=== PATIENT | male | born 1935 | race African-American/Black ===

== ENCOUNTER 2016-05-22 18:46 | Inpatient (IN) | payer MEDICARE ==
[~2016-05-22] VITALS: Ht 188 cm; Wt 138.3 kg
[~2016-05-22 18:46] MED LIST: ALLO100T PO; AMLO5TAB96 PO; ATOR20TA42 PO; BACT800T5 PO; COUM3TAB PO; COUM6TAB PO; LASI80TA PO; LOSA25TA31 PO; METO100T9 PO; POTA1TAB4 PO; TAMS0.4C67 PO; VITA-13 PO
[2016-05-22 18:50] VITALS: BP 183/87; PULSE 92; RESP 28; TEMP 97.8; O2SAT 95
[2016-05-23] VITALS (8 sets, daily range): BP systolic 110–170; BP diastolic 58–74; PULSE 67–82; RESP 18–28; TEMP 97–97.7; O2SAT 92–98
[2016-05-23] MEDS ORDERED: FUROSEMIDE 40 MG/4 ML VIAL IV PUSH ONE ×2 (00:30→13:00)
--- NOTE | 2016-05-23 00:39 | RADRPT ---
EXAM DATE/TIME: 05/23/2016 00:27 [place] COMPARISON: CHEST SINGLE AP, December 27, 2013, 7:12. INDICATIONS : Shortness of breath. MEDICAL HISTORY : Hypertension. CHF, A-Fib SURGICAL HISTORY : CABG. ENCOUNTER: Initial ACUITY: 1 day PAIN SCORE: 0/10 LOCATION: Bilateral chest FINDINGS: 2 AP semierect views of the chest were obtained and demonstrate the patient is status post median kolton rnotomy. The heart size remains mildly enlarged with no confluent infiltrates or effusions. There is no definite perihilar edema. The soft tissues and bony thorax are stable and unremarkable in appearan ce. There are overlying electrocardiogram leads. CONCLUSION: 1. Cardiomegaly with no evidence of pulmonary edema. 2. That is post median sternotomy. Shawn Martinez MD on May 23, 2016 at 0:37 Board Certified Radiologist. This report was verified electronically.
[2016-05-23 00:55] LABS: AUTOMATED NEUTROPHIL # 5.2 TH/MM3 (1.8-7.7); BASOPHIL % 0.7 % (0.0-2.0); EOSINOPHIL # 0.2 TH/MM3 (0-0.4); EOSINOPHIL % 2.7 % (0.0-4.0); HEMATOCRIT 33.8 % (39.0-51.0); HEMO FLAGS DIFF FINAL; LYMPHOCYTE # 1.1 TH/MM3 (1.0-4.8); MEAN CELL VOLUME 89.7 FL (80.0-100.0); MEAN CORPUSCULAR HEMOGLOBIN 29.4 PG (27.0-34.0); MEAN CORPUSCULAR HGB CONC 32.8 % (32.0-36.0); MONO % 7.1 % (0.0-8.0); NEUT % 73.5 % (16.0-70.0); PLATELET COUNT 262 TH/MM3 (150-450); RED BLOOD COUNT 3.77 MIL/MM3 (4.50-5.90); RED CELL DISTRIBUTION WIDTH 16.5 % (11.6-17.2)
[2016-05-23 01:11] LABS: APTT (PATIENT) 33.8 SEC (24.3-30.1); PROTHROMBIN TIME - PATIENT 22.4 SEC (9.8-11.6)
[2016-05-23 02:55] LABS: BICARBONATE 31.8 MEQ/L (21.0-32.0); POTASSIUM 3.6 MEQ/L (3.5-5.1)
--- NOTE | 2016-05-23 03:21 | PD ---
HPI Chief Complaint: Respiratory Symptoms Time Seen by Provider: 23:52 Travel History International Travel<30 days: No Contact w/Intl Traveler<30days: No Traveled to known affect area: No History of Present Illness HPI 80-year-old male arrives to the ER dyspnea on exertion and orthopnea couple of bilateral lower extremity pitting edema worsening for the past several days. He can walk no further than 15 steps without becoming severely dyspneic. His Lasix dose has been doubled for the past 2 weeks. It has not helped. Urination has been somewhat variable. He reports no chest pain. Market scrotal swelling is reported and moderately uncomfortable. No fever. PFSH Past Medical History Hx Anticoagulant Therapy: Yes Anemia: Yes Arthritis: Yes Asthma: No Atrial Fibrillation: Yes Blood Disorders: No Anxiety: No Depression: No Heart Rhythm Problems: No Cancer: No Cardiac Catheterization: Yes Cardiovascular Problems: Yes ([place] X3 CABGX3) High Cholesterol: Yes Chemotherapy: No Chest Pain: No Congestive Heart Failure: Yes (04/2012) COPD: No Cerebrovascular Accident: Yes Coronary Artery Disease: Yes Diabetes: No Diminished Hearing: No Deep Vein Thrombosis: Yes (BOTH LEGS?) Endocrine: No GERD: Yes Glaucoma: No Gout: Yes Genitourinary: Yes (BPH) Headaches: No Hepatitis: No Hypertension: Yes Immune Disorder: No Kidney Stones: No Musculoskeletal: Yes (OSTEOPOROSIS) Neurologic: Yes Psychiatric: No Reproductive: No Respiratory: Yes Migraines: No Myocardial Infarction: Yes Pneumonia: Yes (CHILDHOOD) Radiation Therapy: No Renal Failure: Yes (CRF) Seizures: No Sleep Apnea: Yes (DOESN'T USE CPAP) Thyroid Disease: No Past Surgical History Abdominal Surgery: Yes (Umbilical hernia repair) AICD: No Arteriovenous Shunt: No Cardiac Surgery: Yes (04/14/07 L CAROTID ENDARDECTOMY, CABG 04/2012) Coronary Artery Bypass Graft: Yes (2011) Ear Surgery: No Endocrine Surgery: No Eye Surgery: No Genitourinary Surgery: Yes (VASECTOMY) Gynecologic Surgery: No Insulin Pump: No Joint Replacement: No Oral Surgery: No Pacemaker: No Thoracic Surgery: No Other Surgery: Yes (UMBILICAL HERNIA 2002) Social History Alcohol Use: No Tobacco Use: No (QUIT) Substance Use: No Allergies-Medications (Allergen,Severity, Reaction): Coded Allergies: Penicillin (Verified Allergy, Severe, ANAPHYLAXIS, 05/22/16) Vasotec (Verified Allergy, Severe, FACIAL EDEMA, 05/22/16) Zithromax (Verified Allergy, Severe, UNKNOWN, 05/22/16) Reported Meds & Prescriptions Reported Meds & Active Scripts Active Bactrim DS (Sulfamethoxazole-Trimethoprim DS) 1 Tab Tab 1 Tab PO BID Reported Coumadin 3 mg (Warfarin Sodium) Warfarin Sodium 3 mg Tab 3 Mg PO DIRECTED Coumadin 6 mg (Warfarin Sodium) Warfarin Sodium 6 mg Tab 6 Mg PO DIRECTED Vitamin D3 (Cholecalciferol) 1,000 Unit Chw 1,000 Unit PO DAILY Metoprolol Succinate ER 100 mg (Metoprolol Succinate) 100 Mg Tab 100 Mg PO DAILY K-Tab (Potassium Chloride) 20 Meq Tab 10 Meq PO DAILY Cozaar (Losartan Potassium) 25 Mg Tab 50 Mg PO HS Lipitor (Atorvastatin Calcium) 20 Mg Tab 40 Mg PO HS Furosemide 80 Mg Tab 40 Mg PO DAILY Flomax (Tamsulosin HCl) 0.4 Mg Cap 0.4 Mg PO HS Norvasc (Amlodipine Besylate) 5 Mg Tab 5 Mg PO DAILY HOLD FOR SBP < 120 Allopurinol 100 Mg Tab 100 Mg PO DAILY Review of Systems Except as stated in HPI: all other systems reviewed are Neg Physical Exam Narrative GENERAL: 80-year-old male pleasant SKIN: Warm and dry. HEAD: Atraumatic. Normocephalic. EYES: Pupils equal and round. No scleral icterus. No injection or drainage. ENT: No nasal bleeding or discharge. Mucous membranes pink and moist. NECK: Trachea midline. No JVD. CARDIOVASCULAR: Regular rate and rhythm. No murmur appreciated. RESPIRATORY: No accessory muscle use. Clear to auscultation. Breath sounds equal bilaterally. GASTROINTESTINAL: Abdomen soft, non-tender, nondistended. Hepatic and splenic margins not palpable. MUSCULOSKELETAL: No obvious deformities. No clubbing. No cyanosis. No edema. Approximate 5 cm soft tissue lump in the region of the lumbar soft tissues. NEUROLOGICAL: Awake and alert. No obvious cranial nerve deficits. Motor grossly within normal limits. Normal speech. PSYCHIATRIC: Appropriate mood and affect; insight and judgment normal. Data Data Last Documented VS Vital Signs Date Time Temp Pulse Resp B/P Pulse Ox O2 Delivery O2 Flow Rate FiO2 05/23/16 00:06 98 Nasal Cannula 2 05/23/16 00:06 28 05/23/16 00:03 69 05/23/16 00:03 170/74 05/22/16 18:50 97.8 Orders Electrocardiogram (05/23/16 00:02) Basic Metabolic Panel (Bmp) (05/23/16 00:02) Ckmb (Isoenzyme) Profile (05/23/16 00:02) Complete Blood Count With Diff (05/23/16 00:02) Magnesium (Mg) (05/23/16 00:02) Prothrombin Time / Inr (Pt) (05/23/16 00:02) Act Partial Throm Time (Ptt) (05/23/16 00:02) Troponin I (05/23/16 00:02) Chest, Single Ap (05/23/16 00:02) Ecg Monitoring (05/23/16 00:02) Bilateral Bp Monitoring (05/23/16 00:02) Iv Access Insert/Monitor (05/23/16 00:02) Oximetry (05/23/16 00:02) Oxygen Administration (05/23/16 00:02) B-Type Natriuretic Peptide (05/23/16 00:11) Furosemide Inj (Lasix Inj) (05/23/16 00:30) Vital Signs (Adult) Q4H (05/23/16 03:20) Diet Heart Healthy (05/23/16 Breakfast) Activity Bed Rest (05/23/16 03:20) Resp Oxygen Sukhdev C Titrat 1-4 L (05/23/16 ) Sodium Chloride 0.9% Flush (Ns Flush) (05/23/16 09:00) Sodium Chloride 0.9% Flush (Ns Flush) (05/23/16 03:30) Labs Laboratory Tests Test 05/23/16 05/23/16 00:00 02:32 White Blood Count 7.0 TH/MM3 Red Blood Count 3.77 MIL/MM3 Hemoglobin 11.1 GM/DL Hematocrit 33.8 % Mean Corpuscular Volume 89.7 FL Mean Corpuscular Hemoglobin 29.4 PG Mean Corpuscular Hemoglobin 32.8 % Concent Red Cell Distribution Width 16.5 % Platelet Count 262 TH/MM3 Mean Platelet Volume 8.5 FL Neutrophils (%) (Auto) 73.5 % Lymphocytes (%) (Auto) 16.0 % Monocytes (%) (Auto) 7.1 % Eosinophils (%) (Auto) 2.7 % Basophils (%) (Auto) 0.7 % Neutrophils # (Auto) 5.2 TH/MM3 Lymphocytes # (Auto) 1.1 TH/MM3 Monocytes # (Auto) 0.5 TH/MM3 Eosinophils # (Auto) 0.2 TH/MM3 Basophils # (Auto) 0.0 TH/MM3 CBC Comment DIFF FINAL Differential Comment Prothrombin Time 22.4 SEC Prothromb Time International 2.0 RATIO Ratio Activated Partial 33.8 SEC Thromboplast Time B-Type Natriuretic Peptide 994 PG/ML Sodium Level 139 MEQ/L Potassium Level 3.6 MEQ/L Chloride Level 99 MEQ/L Carbon Dioxide Level 31.8 MEQ/L Anion Gap 8 MEQ/L Blood Urea Nitrogen 18 MG/DL Creatinine 1.54 MG/DL Estimat Glomerular Filtration 53 ML/MIN Rate Random Glucose 101 MG/DL Calcium Level 8.8 MG/DL Magnesium Level 2.0 MG/DL Total Creatine Kinase 39 U/L Troponin I 0.25 NG/ML MDM Medical Decision Making Medical Screen Exam Complete: Yes Emergency Medical Condition: Yes Medical Record Reviewed: Yes Differential Diagnosis CHF exacerbation, pneumonia, renal failure, ascites, lymphedema Narrative Course CBC & BMP Diagram 05/23/16 00:00 05/23/16 02:32 Last Impressions Chest X-Ray 05/23/16 0002 Signed Impressions: Service Date/Time: April 00:27 - CONCLUSION: 1. Cardiomegaly with no evidence of pulmonary edema. 2. That is post median sternotomy. Shawn Martinez MD The troponin is 0.25 The BNP is 994 EKG reveals atrial fibrillation with a rate of 80 The patient will be admitted for oxygen and for diuresis. Lasix given in ER. Discussed with Dr. Rivas. Diagnosis Primary Impression: CHF exacerbation Qualified Code: I50.9 - Acute on chronic congestive heart failure, unspecified congestive heart failure type Admitting Information Admitting Physician Requests: Admit Rudi Stewart MD May 23, 2016 03:21
[2016-05-23] MEDS ORDERED: SODIUM CHLORIDE 0.9% FLUSH 5 ML FLUSH IVF PRN (03:30)
[2016-05-23] MEDS ORDERED: oxyCODONE/ACETAMINOPHEN 7.5 MG/325 MG TAB PO ONE (06:00)
[2016-05-23] MEDS: SODIUM CHLORIDE 0.9% FLUSH 5 ML FLUSH IVF SCH ×2 (09:00→21:48)
[2016-05-23] MEDS ORDERED: ALLO100T PO (09:25)
[2016-05-23] MEDS ORDERED: AMLO5TAB2 PO (09:26)
[2016-05-23] MEDS ORDERED: ATOR20TA15 PO (09:27)
[2016-05-23] MEDS ORDERED: FURO40TA PO (09:28)
[2016-05-23] MEDS ORDERED: LOSA50TA PO (09:29)
[2016-05-23] MEDS ORDERED: METO100T9 PO (09:31)
[2016-05-23] MEDS ORDERED: TAMS0.4C4 PO (09:32)
[2016-05-23] MEDS ORDERED: SENO8.6T5 PO (09:52)
--- NOTE | 2016-05-23 11:59 | EKG ---
Date Performed: 05/22/2016 Time Performed: 23:55:40 PTAGE: 80 years EKG: ATRIAL FIBRILLATION LOW QRS VOLTAGE IN PRECORDIAL LEADS ST DEVIATION AND MODERATE T-WAVE AB NORMALITY, CONSIDER LATERAL ISCHEMIA ABNORMAL ECG Since PREVIOUS TRACING , no significant change noted PREVIOUS TRACIN12/27/2013 07.00 DOCTOR: Eamon Posadas Interpretating Date/Time 05/23/2016 11:57:10
[2016-05-23] MEDS: oxyCODONE/ACETAMINOPHEN 7.5 MG/325 MG TAB PO PRN ×3 (12:48→21:47)
--- NOTE | 2016-05-23 12:55 | HHI.HP ---
HPI Service [facility] Hospitalists Primary Care Physician Vipul Eid MD Admission Diagnosis CHF Exacerbation Chief Complaint: sob. leg edema Travel History International Travel<30 Days: No Contact w/Intl Traveler <30 Da: No Traveled to Known Affected Are: No History of Present Illness Pt with cad, 3v cabg 2012, afib presents with sob, worsening leg edema, breakdown of lower ext skin and severe scrotal edema. Pt says he was going to lymphedema clinic for wraps and therapy in past. His pcp doubled his lasix last week w/out improvement. He is noncomplaint with cpap. He presents with acute systolic chf exacerbation. admitted for further care. Review of Systems Other worsening lower ext edema/scrotal edema/sob Past Family Social History Past Medical History cad. 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 dvt Reported Medications Senokot (Sennosides) 8.6 Mg Tab 8.6 Mg PO HS Tamsulosin (Tamsulosin HCl) 0.4 Mg Cap 0.4 Mg PO HS Metoprolol Succinate ER 24 HR (Metoprolol Succinate) 100 Mg Tab 100 Mg PO DAILY Losartan (Losartan Potassium) 50 Mg Tab 50 Mg PO DAILY Furosemide 40 Mg Tab 40 Mg PO DAILY Atorvastatin (Atorvastatin Calcium) 20 Mg Tab 20 Mg PO HS Amlodipine (Amlodipine Besylate) 5 Mg Tab 5 Mg PO DAILY Allopurinol 100 Mg Tab 100 Mg PO DAILY coumadin 3mg po daily Allergies: Coded Allergies: Penicillin (Verified Allergy, Severe, ANAPHYLAXIS, 05/22/16) Vasotec (Verified Allergy, Severe, FACIAL EDEMA, 05/22/16) Zithromax (Verified Allergy, Severe, UNKNOWN, 05/22/16) Family History nc Social History no etoh/tob Physical Exam Vital Signs heart reg lung diminished bases abd s/nt ext anasarca with denuded skin bilateral lower ext's below the knee. multiple superficial black nodular eschar. no evidence for cellulitis. Vital Signs Date Time Temp Pulse Resp B/P Pulse Ox O2 Delivery O2 Flow Rate FiO2 05/23/16 10:40 Nasal Cannula 2.00 05/23/16 05:00 82 22 154/71 97 Nasal Cannula 2 05/23/16 03:55 98 Nasal Cannula 2.00 05/23/16 00:06 98 Nasal Cannula 2 05/23/16 00:06 28 98 Nasal Cannula 2 05/23/16 00:03 69 28 95 Room Air 05/23/16 00:03 81 28 170/74 98 Nasal Cannula 2 05/22/16 18:50 97.8 92 28 183/87 95 Room Air Laboratory Laboratory Tests Test 05/23/16 05/23/16 00:00 02:32 White Blood Count 7.0 Red Blood Count 3.77 Hemoglobin 11.1 Hematocrit 33.8 Mean Corpuscular Volume 89.7 Mean Corpuscular Hemoglobin 29.4 Mean Corpuscular Hemoglobin 32.8 Concent Red Cell Distribution Width 16.5 Platelet Count 262 Mean Platelet Volume 8.5 Neutrophils (%) (Auto) 73.5 Lymphocytes (%) (Auto) 16.0 Monocytes (%) (Auto) 7.1 Eosinophils (%) (Auto) 2.7 Basophils (%) (Auto) 0.7 Neutrophils # (Auto) 5.2 Lymphocytes # (Auto) 1.1 Monocytes # (Auto) 0.5 Eosinophils # (Auto) 0.2 Basophils # (Auto) 0.0 CBC Comment DIFF FINAL Differential Comment Prothrombin Time 22.4 Prothromb Time International 2.0 Ratio Activated Partial 33.8 Thromboplast Time B-Type Natriuretic Peptide 994 Sodium Level 139 Potassium Level 3.6 Chloride Level 99 Carbon Dioxide Level 31.8 Anion Gap 8 Blood Urea Nitrogen 18 Creatinine 1.54 Estimat Glomerular Filtration 53 Rate Random Glucose 101 Calcium Level 8.8 Magnesium Level 2.0 Total Creatine Kinase 39 Troponin I 0.25 Result Diagram: 05/23/16 0000 05/23/16 0232 Assessment and Plan Problem List: (1) CHF exacerbation Status: Acute Plan: Pt with cad, 3v cabg 2011, afib presents with sob, worsening leg edema, breakdown of lower ext skin and severe scrotal edema. Pt says he was going to lymphedema clinic for wraps and therapy in past. His pcp doubled his lasix last week w/out improvement. He is noncomplaint with cpap. He presents with acute systolic chf exacerbation. echo iv lasix and follow cr/gfr elevate legs. and scrotum wrap legs wound care pt (2) CAD (coronary artery disease) Status: Chronic Plan: s/p cabg x 3 2011. stable (3) Atrial fibrillation Status: Chronic Plan: pt is currently anticoagulated. (4) HTN (hypertension) Status: Chronic Plan: cont home meds (5) CKD (chronic kidney disease) stage 3, GFR 30-59 ml/min Status: Chronic Physician Certification 2 Midnight Certification Type: Admission for Inpatient Services Order for Inpatient Services 3The services are ordered in accordance with Medicare regulations or non- Medicare payer requirements, as applicable. In the case of services not specified as inpatient-only, they are appropriately provided as inpatient services in accordance with the 2-midnight benchmark. Estimated LOS (days): 3 3 days is the estimated time the patient will need to remain in the hospital, assuming treatment plan goals are met and no additional complications. Post-Hospital Plan: Home Problem Qualifiers (1) CHF exacerbation: Qualified Code: I50.9 - Acute on chronic congestive heart failure, unspecified congestive heart failure type Alfonso Asif MD May 23, 2016 12:55
[2016-05-23] MEDS: amLODIPine BESYLATE 5 MG TAB PO SCH (13:04)
[2016-05-23] MEDS: LOSARTAN 50 MG TAB PO SCH (13:05)
[2016-05-23] MEDS: WARFARIN SOD 3 MG TAB PO SCH (15:27)
--- NOTE | 2016-05-23 21:00 | EC ---
Study Study Date:05/23/2016 STUDY CONCLUSIONS SUMMARY - Left ventricle: The cavity size was normal. Wall thickness was normal. Systolic function was mildly reduced. The estimated ejection fraction was in the range of 45% to 50%. Wall motion was normal; there were no regional wall motion abnormalities. - Aortic valve: Valve area: 2.36cm^2 (Vmax). - Tricuspid valve: Mild-moderate regurgitation. - Pulmonary arteries: PA peak pressure: 34mm Hg (S). If LV function is below 40, please consider prescribing an ACEI or ARB or document rationale for non-use. PROCEDURE DATA STUDY STATUS: Elective. Procedure: Transthoracic echocardiography. Image quality was poor. Scanning was performed from the parasternal, apical, and subcostal acoustic windows. Study completion: The patient tolerated the procedure well. Transthoracic echocardiography. M-mode, complete 2D, complete spectral Doppler, and color Doppler. Height: Height: 74in. Weight: Weight: 281.4lb. Body mass index: BMI: 36.2kg/m^2. Body surface area: BSA: 2.51m^2. Patient status: Inpatient. CARDIAC ANATOMY LEFT VENTRICLE: The cavity size was normal. Wall thickness was normal. Systolic function was mildly reduced. The estimated ejection fraction was in the range of 45% to 50%. Wall motion was normal; there were no regional wall motion abnormalities. AORTIC VALVE: Trileaflet; normal thickness leaflets. Doppler: Transvalvular velocity was within the normal range. There was no stenosis. No regurgitation. Valve area: 2.36cm^2 (Vmax). Indexed valve area: 0.94cm^2/m^2 (Vmax). AORTA: Aortic root: The aortic root was normal in size. MITRAL VALVE: Structurally normal valve. Doppler: Transvalvular velocity was within the normal range. There was no evidence for stenosis. No regurgitation. Peak gradient: 7mm Hg (D). LEFT ATRIUM: The atrium was normal in size. RIGHT VENTRICLE: The cavity size was normal. Wall thickness was normal. PULMONIC VALVE: Doppler: Transvalvular velocity was within the normal range. There was no evidence for stenosis. No regurgitation. TRICUSPID VALVE: Structurally normal valve. Doppler: Transvalvular velocity was within the normal range. Mild-moderate regurgitation. PULMONARY ARTERY: The main pulmonary artery was normal-sized. Systolic pressure was within the normal range. RIGHT ATRIUM: The atrium was normal in size. PERICARDIUM: There was no pericardial effusion. SYSTEMIC VEINS: Inferior vena cava: The vessel was normal in size. Patient weight: 281.4lb _Ejection fraction:_ 65-75% _Fractional shortening:_ 32% up to 5Kg 5-11.5Kg 11.6-22.9Kg 23-45Kg 45-57Kg Aortic Root 7-13 <17 13-22 17-27 17-27 LA diam 6-13 <23 24-38 33-47 37-40 RVID 10-17 7-15 7-15 7-18 8-17 LVIDd 12-22 <32 24-38 33-47 37-40 LVPW 2-4 3-6 5-7 6-8 7-8 IVS 2-4 3-6 5-7 6-8 7-8 BASIC MEASUREMENTS ADULT NORMAL Left ventricle LV internal dimension, ED, chordal *39.1 mm 43-52 level, PLAX LV internal dimension, ES, chordal 32 mm 23-38 level, PLAX Fractional shortening, chordal level, *18 % >29 PLAX LV posterior wall thickness, ED 11.3 mm IVS/LVPW ratio, ED 1.01 <1.3 Ventricular septum Septal thickness, ED 11.4 mm Aortic valve Leaflet separation 19 mm 15-26 BASIC MEASUREMENTS ADULT NORMAL Aortic valve Leaflet separation 19 mm 15-26 Aorta Root diameter, ED 30 mm 20-37 Left atrium Anterior-posterior dimension, ES *53 mm 19-40 Anterior-posterior dimension index, ES 2.11 cm/m^2 <2.2 LA/aortic root ratio 1.77 DOPPLER MEASUREMENTS ADULT NORMAL Main pulmonary artery Pressure, S *34 mm Hg =30 Aortic valve Peak velocity, S 121 cm/s Valve area, Vmax 2.36 cm^2 Valve area index, Vmax 0.94 cm^2/m^2 Mitral valve Peak E-wave velocity 131 cm/s Deceleration time 187 ms 150-230 Peak gradient, D 7 mm Hg Maximal regurgitant velocity 243 cm/s Tricuspid valve Regurgitant peak velocity 267 cm/s Peak RV-RA gradient, S 29 mm Hg Maximal regurgitant velocity 267 cm/s Systemic veins Estimated CVP 10 mm Hg Right ventricle RV pressure, S *39 mm Hg <30 Pulmonic valve Peak velocity, S 117 cm/s LEGEND: Mean values are shown as u=mean value. Asterisk (*) daniels values outside specified normal range. Prepared and signed by Jorden So [id number]
[2016-05-23] MEDS: SENNOSIDES 8.6 MG TAB PO SCH (21:44)
[2016-05-23] MEDS: ATORVASTATIN 20 MG TAB PO SCH (21:45)
[2016-05-23] MEDS: TAMSULOSIN HCL 0.4 MG CAP PO SCH (21:46)
[2016-05-24] VITALS (8 sets, daily range): BP systolic 98–137; BP diastolic 48–75; PULSE 66–84; RESP 17–18; TEMP 96.2–98; O2SAT 92–96
[2016-05-24 05:41] LABS: INTERNATIONAL NORMALIZED RATIO 2.4 RATIO; PROTHROMBIN TIME - PATIENT 27.5 SEC (9.8-11.6)
[2016-05-24 05:59] LABS: BICARBONATE 32.9 MEQ/L (21.0-32.0); POTASSIUM 3.5 MEQ/L (3.5-5.1)
[2016-05-24] MEDS ORDERED: amLODIPine BESYLATE 5 MG TAB PO SCH (09:00)
[2016-05-24] MEDS ORDERED: LOSARTAN 50 MG TAB PO SCH (09:00)
[2016-05-24] MEDS: ALLOPURINOL 100 MG TAB PO SCH (09:17)
[2016-05-24] MEDS: METOPROLOL SUCCINATE 50 MG EXTENDED RELEASE TAB PO SCH (09:17)
[2016-05-24] MEDS: LOSARTAN 50 MG TAB PO SCH (09:17)
[2016-05-24] MEDS: amLODIPine BESYLATE 5 MG TAB PO SCH (09:17)
[2016-05-24] MEDS: SODIUM CHLORIDE 0.9% FLUSH 5 ML FLUSH IVF SCH ×2 (09:19→21:00)
[2016-05-24] MEDS ORDERED: FUROSEMIDE 20 MG/2 ML VIAL IV PUSH ONE (10:15)
--- NOTE | 2016-05-24 12:19 | HHI.PR ---
Subjective Remarks still swollen. c/o some sob/wheezing. Objective Vitals heent neg heart reg lung wheezing upper airways abd s/nt ext anasarca/scrotal edema with denuded skin and ruptured lower ext blisters. black eschars Vital Signs Date Time Temp Pulse Resp B/P Pulse Ox O2 Delivery O2 Flow Rate FiO2 05/24/16 12:00 Room Air 05/24/16 12:00 97.0 81 18 137/70 92 05/24/16 09:47 94 05/24/16 08:00 97.2 84 18 123/54 93 05/24/16 04:15 97.5 78 18 114/75 92 05/24/16 00:20 96.2 82 17 104/57 93 05/23/16 21:55 2.00 05/23/16 20:55 97.7 81 18 110/66 93 05/23/16 18:30 96 21 05/23/16 15:33 96 Nasal Cannula 2.00 05/23/16 15:28 97.2 67 18 110/58 96 05/23/16 14:02 Nasal Cannula 2.00 05/23/16 05/23/16 05/24/16 15:00 23:00 07:00 Intake Total 720 ml 480 ml 240 ml Balance 720 ml 480 ml 240 ml Intake Oral 720 ml 480 ml 240 ml # Voids 3 0 0 # Bowel Movements 0 0 0 Result Diagram: 05/23/16 0000 05/24/16 0446 A/P Problem List: (1) CHF exacerbation Status: Acute Plan: Pt with cad, 3v cabg 2011, afib presents with sob, worsening leg edema, breakdown of lower ext skin and severe scrotal edema. Pt says he was going to lymphedema clinic for wraps and therapy in past. His pcp doubled his lasix last week w/out improvement. He is noncomplaint with cpap. He presents with acute systolic chf exacerbation. echo noted iv lasix and add iv albumen elevate legs. and scrotum wrap legs wound care pt (2) Atrial fibrillation Status: Chronic Plan: pt is currently anticoagulated. (3) CAD (coronary artery disease) Status: Chronic Plan: s/p cabg x 3 2011. stable (4) HTN (hypertension) Status: Chronic Plan: cont home meds (5) CKD (chronic kidney disease) stage 3, GFR 30-59 ml/min Status: Chronic Problem Qualifiers (1) CHF exacerbation: Qualified Code: I50.9 - Acute on chronic congestive heart failure, unspecified congestive heart failure type Alfonso Asif MD May 24, 2016 12:19
[2016-05-24] MEDS: RESP: ALBUTEROL 2.5 MG/IPRATROPIUM 0.5 MG NEB (SCH) NEB ×3 (12:36→19:26)
[2016-05-24 15:51] LABS: TOTAL BILIRUBIN ADULT 1.5 MG/DL (0.2-1.0)
[2016-05-24] MEDS ORDERED: POTASSIUM CHLORIDE 20 MEQ CONTROLLED RELEASE TAB PO ONE (16:00)
[2016-05-24] MEDS: WARFARIN SOD 3 MG TAB PO SCH (16:00)
[2016-05-24] MEDS: FUROSEMIDE 20 MG/2 ML VIAL IV PUSH SCH (16:40)
[2016-05-24] MEDS: ALBUMIN HUMAN 25% 25 GM/100 ML BAGP IV SCH (16:42)
[2016-05-24] MEDS: TAMSULOSIN HCL 0.4 MG CAP PO SCH (22:08)
[2016-05-24] MEDS: POTASSIUM CHLORIDE 20 MEQ CONTROLLED RELEASE TAB PO SCH (22:08)
[2016-05-24] MEDS: ATORVASTATIN 20 MG TAB PO SCH (22:08)
[2016-05-24] MEDS: SENNOSIDES 8.6 MG TAB PO SCH (22:08)
[2016-05-24] MEDS: oxyCODONE/ACETAMINOPHEN 7.5 MG/325 MG TAB PO PRN (22:17)
[2016-05-25] VITALS (14 sets, daily range): BP systolic 104–142; BP diastolic 50–76; PULSE 77–107; RESP 16–18; TEMP 97.1–98.2; O2SAT 93–95
[2016-05-25 00:01] LABS: BACTERIA, URINE RARE /hpf; BLOOD, URINE NEG (NEG); CALCIUM OXALATE CRYSTALS,URINE OCC /hpf; COMMENT (UR) CULTURE INDICATED; CULTURE IF INDICATED CULTURE INDICATED; GLUCOSE,URINE NEG (NEG); HYALINE CAST, URINE 20 /lpf (RARE); KETONE, URINE NEG (NEG); NITRITE,URINE NEG (NEG); PH, URINE 5.5 (5.0-8.5); SQUAMOUS EPITHELIAL CELL URINE 2 /hpf (0-5); URINE COLOR DARK-YELLOW (YELLW/STRAW)
[2016-05-25 07:03] LABS: BICARBONATE 30.1 MEQ/L (21.0-32.0); POTASSIUM 3.7 MEQ/L (3.5-5.1)
[2016-05-25 07:15] LABS: INTERNATIONAL NORMALIZED RATIO 2.3 RATIO; PROTHROMBIN TIME - PATIENT 26.7 SEC (9.8-11.6)
[2016-05-25] MEDS: RESP: ALBUTEROL 2.5 MG/IPRATROPIUM 0.5 MG NEB (SCH) NEB ×4 (07:40→20:00)
[2016-05-25] MEDS: POTASSIUM CHLORIDE 20 MEQ CONTROLLED RELEASE TAB PO SCH ×2 (09:36→20:40)
[2016-05-25] MEDS: ALLOPURINOL 100 MG TAB PO SCH (09:36)
[2016-05-25] MEDS: FUROSEMIDE 20 MG/2 ML VIAL IV PUSH SCH (09:37)
[2016-05-25] MEDS: ALBUMIN HUMAN 25% 25 GM/100 ML BAGP IV SCH ×2 (09:38→17:47)
[2016-05-25] MEDS: METOPROLOL SUCCINATE 50 MG EXTENDED RELEASE TAB PO SCH (09:40)
[2016-05-25] MEDS: amLODIPine BESYLATE 5 MG TAB PO SCH (09:40)
[2016-05-25] MEDS: LOSARTAN 50 MG TAB PO SCH (09:40)
[2016-05-25] MEDS: SODIUM CHLORIDE 0.9% FLUSH 5 ML FLUSH IVF SCH ×2 (09:41→20:40)
--- NOTE | 2016-05-25 10:41 | HHI.PR ---
Subjective Remarks breathing better. Objective Vitals heart reg lung cta abd s/nt ext lower ext anasarca with denuded skin from ruptured blistered some necrotic/eschars scrotal edema improving Vital Signs Date Time Temp Pulse Resp B/P Pulse Ox O2 Delivery O2 Flow Rate FiO2 05/25/16 08:00 97.1 83 18 106/59 94 05/25/16 07:44 Room Air 05/25/16 07:43 95 21 05/25/16 04:00 98.2 107 16 104/56 93 05/25/16 00:00 98.2 78 17 141/76 94 05/24/16 20:00 98.0 83 17 131/60 95 05/24/16 19:27 92 Nasal Cannula 05/24/16 17:17 Room Air 05/24/16 16:46 Room Air 05/24/16 16:00 97.8 66 18 98/48 96 05/24/16 12:00 Room Air 05/24/16 12:00 97.0 81 18 137/70 92 05/24/16 05/24/16 05/25/16 14:59 22:59 06:59 Intake Total 960 ml 240 ml 240 ml Output Total 200 ml 250 ml Balance 960 ml 40 ml -10 ml Intake Oral 960 ml 240 ml 240 ml Output Urine Total 200 ml 250 ml # Voids 4 # Bowel Movements 0 0 0 Result Diagram: 05/23/16 0000 05/25/16 0347 A/P Problem List: (1) CHF exacerbation Status: Acute Plan: Pt with cad, 3v cabg 2011, afib presents with sob, worsening leg edema, breakdown of lower ext skin and severe scrotal edema. Pt says he was going to lymphedema clinic for wraps and therapy in past. His pcp doubled his lasix last week w/out improvement. He is noncomplaint with cpap. He presents with acute systolic chf exacerbation. increase iv lasix and albumen discussed strict i/o and weights with RN instructed pt to restrict fluid intake elevate legs. wrapped he is noncompliant with cpap. duonebs (2) CAD (coronary artery disease) Status: Chronic Plan: s/p cabg x 3 2011. stable (3) Atrial fibrillation Status: Chronic Plan: pt is currently anticoagulated. (4) HTN (hypertension) Status: Chronic Plan: cont home meds (5) CKD (chronic kidney disease) stage 3, GFR 30-59 ml/min Status: Chronic Problem Qualifiers (1) CHF exacerbation: Qualified Code: I50.9 - Acute on chronic congestive heart failure, unspecified congestive heart failure type Alfonso Asif MD May 25, 2016 10:41
[2016-05-25] MEDS: oxyCODONE/ACETAMINOPHEN 7.5 MG/325 MG TAB PO PRN ×2 (14:15→20:49)
[2016-05-25] MEDS: WARFARIN SOD 3 MG TAB PO SCH (16:15)
[2016-05-25] MEDS: FUROSEMIDE 40 MG/4 ML VIAL IV PUSH SCH (17:47)
[2016-05-25] MEDS: TAMSULOSIN HCL 0.4 MG CAP PO SCH (20:39)
[2016-05-25] MEDS: ATORVASTATIN 20 MG TAB PO SCH (20:39)
[2016-05-25] MEDS: SENNOSIDES 8.6 MG TAB PO SCH (20:39)
[2016-05-26] VITALS (22 sets, daily range): BP systolic 106–151; BP diastolic 58–89; PULSE 64–87; RESP 18–20; TEMP 97.8–98.3; O2SAT 93–98
[2016-05-26] MEDS: oxyCODONE/ACETAMINOPHEN 7.5 MG/325 MG TAB PO PRN (01:58)
[2016-05-26 08:05] LABS: PROTHROMBIN TIME - PATIENT 22.3 SEC (9.8-11.6)
--- NOTE | 2016-05-26 08:10 | HHI.PR ---
Subjective Remarks severe heartburn. Objective Vitals heart irreg lung clear abd s/nt ext anasarca lower exts with denuded skin from ruptured blisters and old eschar Vital Signs Date Time Temp Pulse Resp B/P Pulse Ox O2 Delivery O2 Flow Rate FiO2 05/26/16 07:33 86 05/26/16 06:00 76 05/26/16 05:00 79 05/26/16 04:00 84 05/26/16 04:00 98.3 84 20 149/89 96 05/26/16 04:00 Room Air 05/26/16 03:00 86 05/26/16 02:00 79 05/26/16 01:00 82 05/26/16 00:00 80 05/26/16 00:00 Room Air 05/26/16 00:00 97.9 80 18 127/82 97 05/25/16 23:00 77 05/25/16 22:00 84 05/25/16 21:00 88 05/25/16 20:00 Room Air 05/25/16 20:00 98.2 93 18 117/50 95 05/25/16 20:00 93 05/25/16 18:00 77 05/25/16 17:00 83 05/25/16 16:00 83 05/25/16 15:00 93 Room Air 05/25/16 15:00 97.9 90 18 136/67 93 05/25/16 12:00 97.3 82 18 137/63 94 05/25/16 09:35 142/67 05/25/16 05/25/16 05/26/16 15:00 23:00 07:00 Intake Total 600 ml 960 ml 482 ml Output Total 300 ml 350 ml Balance 300 ml 960 ml 132 ml Intake Oral 600 ml 960 ml 480 ml IV Total 2 ml Output Urine Total 300 ml 350 ml # Bowel Movements 0 0 Result Diagram: 05/23/16 0000 05/25/16 0347 A/P Problem List: (1) CHF exacerbation Status: Acute Plan: Pt with cad, 3v cabg 2011, afib presents with sob, worsening leg edema, breakdown of lower ext skin and severe scrotal edema. Pt says he was going to lymphedema clinic for wraps and therapy in past. His pcp doubled his lasix last week w/out improvement. He is noncomplaint with cpap. He presents with acute systolic chf exacerbation. echo noted albumen and lasix. monitor cr elevate legs. and scrotum wrap legs wound care pt (2) Atrial fibrillation Status: Chronic Plan: pt is currently anticoagulated. (3) CAD (coronary artery disease) Status: Chronic Plan: s/p cabg x 3 2011. stable (4) HTN (hypertension) Status: Chronic Plan: cont home meds (5) CKD (chronic kidney disease) stage 3, GFR 30-59 ml/min Status: Chronic Problem Qualifiers (1) CHF exacerbation: Qualified Code: I50.9 - Acute on chronic congestive heart failure, unspecified congestive heart failure type Alfonso Asif MD May 26, 2016 08:10
[2016-05-26] MEDS ORDERED: LACTULOSE SYRUP 20 GM/30 ML CUP PO ONE (08:15)
[2016-05-26] MEDS ORDERED: ALUMINUM/MAGNESIUM/SIMETH 30 ML CUP PO ONE (08:15)
[2016-05-26] MEDS ORDERED: LACTULOSE SYRUP 20 GM/30 ML CUP PO PRN (08:15)
[2016-05-26] MEDS ORDERED: ALUMINUM/MAGNESIUM/SIMETH 30 ML CUP PO PRN (08:15)
[2016-05-26] MEDS ORDERED: PANTOPRAZOLE SODIUM 40 MG VIAL IV PUSH ONE (08:15)
[2016-05-26] MEDS: RESP: ALBUTEROL 2.5 MG/IPRATROPIUM 0.5 MG NEB (SCH) NEB ×4 (08:47→20:26)
[2016-05-26 09:20] LABS: MAGNESIUM 2.1 MG/DL (1.5-2.5); POTASSIUM 4.3 MEQ/L (3.5-5.1)
[2016-05-26] MEDS: POTASSIUM CHLORIDE 20 MEQ CONTROLLED RELEASE TAB PO SCH ×2 (09:30→20:21)
[2016-05-26] MEDS: ALLOPURINOL 100 MG TAB PO SCH (09:30)
[2016-05-26] MEDS: METOPROLOL SUCCINATE 50 MG EXTENDED RELEASE TAB PO SCH (09:30)
[2016-05-26] MEDS: amLODIPine BESYLATE 5 MG TAB PO SCH (09:30)
[2016-05-26] MEDS: ALBUMIN HUMAN 25% 25 GM/100 ML BAGP IV SCH (09:30)
[2016-05-26] MEDS: LOSARTAN 50 MG TAB PO SCH (09:31)
[2016-05-26] MEDS: SODIUM CHLORIDE 0.9% FLUSH 5 ML FLUSH IVF SCH ×2 (09:31→20:21)
[2016-05-26] MEDS: FUROSEMIDE 40 MG/4 ML VIAL IV PUSH SCH (09:31)
[2016-05-26 12:01] LABS: BLOOD GAS BASE EXCESS 3.4 mmol/L (-2-2); BLOOD GAS CARBOXYHEMOGLOBIN 2.1 % (0-4); BLOOD GAS HCO3 27 mmol/L (22-26); BLOOD GAS METHEMOGLOBIN 0.9 % (0-2); BLOOD GAS O2 HGB SATURATION 92 % (90-100); BLOOD GAS OXYGEN CONTENT 13.2 Vol % (12.0-20.0); BLOOD GAS PCO2 42 mmHg (38-42); BLOOD GAS PO2 76 mmHg (61-120); BLOOD GAS TOTAL HGB 10.1 G/DL (12.0-16.0); CRITICAL VALUE NO; TEMP CORR TO 98.6
[2016-05-26 12:02] LABS: DRAW SITE RT BRACHIAL; FIO2 21 %; NUMBER OF ARTERIAL PUNCTURES 1; STAT NO; ULNAR PULSE PRESENT
[2016-05-26] MEDS: WARFARIN SOD 3 MG TAB PO SCH (16:22)
[2016-05-26] MEDS: TAMSULOSIN HCL 0.4 MG CAP PO SCH (20:21)
[2016-05-26] MEDS: SENNOSIDES 8.6 MG TAB PO SCH (20:21)
[2016-05-26] MEDS: ATORVASTATIN 20 MG TAB PO SCH (20:22)
[2016-05-27] VITALS (26 sets, daily range): BP systolic 95–129; BP diastolic 54–75; PULSE 69–96; RESP 18–20; TEMP 98–98.6; O2SAT 92–98
[2016-05-27 08:05] LABS: INTERNATIONAL NORMALIZED RATIO 2.2 RATIO; PROTHROMBIN TIME - PATIENT 25.4 SEC (9.8-11.6)
[2016-05-27] MEDS: RESP: ALBUTEROL 2.5 MG/IPRATROPIUM 0.5 MG NEB (SCH) NEB ×4 (08:06→19:28)
[2016-05-27 08:25] LABS: MAGNESIUM 2.1 MG/DL (1.5-2.5); POTASSIUM 3.7 MEQ/L (3.5-5.1)
[2016-05-27] MEDS ORDERED: FUROSEMIDE 40 MG/4 ML VIAL IV PUSH SCH (09:00)
[2016-05-27] MEDS: ALBUMIN HUMAN 25% 25 GM/100 ML BAGP IV SCH (10:11)
[2016-05-27] MEDS: SODIUM CHLORIDE 0.9% FLUSH 5 ML FLUSH IVF SCH ×2 (10:12→21:21)
[2016-05-27] MEDS: METOPROLOL SUCCINATE 50 MG EXTENDED RELEASE TAB PO SCH (10:12)
[2016-05-27] MEDS: amLODIPine BESYLATE 5 MG TAB PO SCH (10:12)
[2016-05-27] MEDS: ALLOPURINOL 100 MG TAB PO SCH (10:12)
[2016-05-27] MEDS: LOSARTAN 50 MG TAB PO SCH (10:13)
[2016-05-27] MEDS: POTASSIUM CHLORIDE 20 MEQ CONTROLLED RELEASE TAB PO SCH ×2 (10:13→21:21)
[2016-05-27] MEDS: PANTOPRAZOLE SOD 40 MG DELAYED RELEASE TAB PO SCH (10:13)
--- NOTE | 2016-05-27 13:14 | MB ---
cc: MIGNON CARBAJAL MD DATE OF CONSULTATION: 05/27/2016 REASON FOR CONSULTATION V-tach. HISTORY OF PRESENT ILLNESS Mr. Moody is a 80-year-old patient of Dr. Wang, for whom I am covering this weekend. The patient does have a history of CAD with CABG in April of 2012 with a LOPEZ to LAD, SVG to the RCA and OM. A recent echocardiogram does also show a cardiomyopathy with an EF of 45-50%. The patient was admitted with progressive lower extremity edema and CHF. He was being medically managed and had a 30-second run of a wide complex tachycardia most consistent with ventricular tachycardia last night. The patient reports he was asymptomatic. It was 11:30 last night. He was apparently sitting, talking with his children and was apparently not sleeping when this happened. PAST MEDICAL HISTORY Past medical history significant for: 1. CABG. 2. Atrial fibrillation. 3. CHF. 4. CKD. 5. Chronic edema with lymphedema. 6. Obesity. 7. Remote CVA and left CEA. 8. He does have obstructive sleep apnea and refuses to wear his C-PAP. 9. He also has morbid obesity. 10. 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 OUTPATIENT MEDICATIONS Include: 1. Senokot. 2. Flomax. 3. Metoprolol. 4. Losartan. 5. Lasix. 6. Atorvastatin. 7. Amlodipine. 8. Allopurinol. 9. Coumadin. INPATIENT MEDICATIONS Per the record. ALLERGIES PENICILLIN, VASOTEC AND ZITHROMAX. FAMILY HISTORY Noncontributory. SOCIAL HISTORY The patient does not drink or smoke. REVIEW OF SYSTEMS Other than what is mentioned in the HPI, all 12 systems are negative. PHYSICAL EXAMINATION VITAL SIGNS: On physical examination, vital signs are 98.5, 86, 20, 129/75. GENERAL: He is a well-appearing man who is in no apparent distress. NECK: His neck is free from JVD. LUNGS: Lungs are bilaterally clear to auscultation, though decreased. CARDIOVASCULAR: He has a normal S1 and S2. I did not appreciate any murmurs, rubs or gallops. ABDOMEN: Abdomen is soft. EXTREMITIES: The lower extremities are wrapped. LABORATORY DATA Lab values significant for a hemoglobin of 11.1 and a creatinine of 2.02. His potassium is 3.7. IMPRESSION Wide-complex tachycardia - the patient does have underlying atrial fibrillation and did go into a wide complex tachycardia that is most consistent with ventricular tachycardia, though atrial fibrillation with aberrancy cannot be completely excluded. The patient does have a history of ischemic heart disease and has been asymptomatic from that perspective. Additionally, he has a history of sleep apnea but it is debatable whether he was actually sleeping at that time. At this point he is stable. There have not been any recurrent episodes. His electrolytes appear within normal limits. He is already on a beta-wade. 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 I do think it is quite plausible if not likely that this was secondary to his sleep apnea and him nodding off at the time. Atrial fibrillation - the patient is well rate controlled today. He is on Coumadin with an INR of 2.2. CHF - the patient does have mild cardiomyopathy and is being managed by the primary team for this. Dr. Wang will return tomorrow. Nandini Jernigan/TLL /11:24 AM /12:55 PM
--- NOTE | 2016-05-27 14:01 | PD.CONS ---
HPI Service Nephrology Consult Requested By Dr. Asif Reason for Consult [facility] Primary Care Physician Vipul Eid MD History of Present Illness 80-year-old male with history of congestive heart failure, atrial fibrillation, morbid obesity, he came in with increasing swelling, scrotal edema, he is having difficulty in moving around due to edema, he was on diuretics and he has a wide complex tachycardia and cardiology is following, he is getting Lasix he states his urine color is dark and reddish in color earlier urine specimen showed that he has a UTI with Pseudomonas and Serratia. His creatinine today 2.02 He has a renal insufficiency in the past Review of Systems Constitutional: COMPLAINS OF: Fatigue Respiratory: COMPLAINS OF: Shortness of breath Cardiovascular: COMPLAINS OF: Lower Extremity Edema Genitourinary: COMPLAINS OF: Urgency, Dysuria, Testicular Swelling Neurologic: COMPLAINS OF: Abnormal gait Past Family Social History Allergies: Coded Allergies: Penicillin (Verified Allergy, Severe, ANAPHYLAXIS, 05/22/16) Vasotec (Verified Allergy, Severe, FACIAL EDEMA, 05/22/16) Zithromax (Verified Allergy, Severe, UNKNOWN, 05/22/16) Past Medical History Hypertension Chronic renal insufficiency Congestive heart failure Atrial fibrillation Coronary artery disease Chronic edema Morbid obesity Past Surgical History Coronary artery bypass graft 3 years ago Vasectomy Left carotid endarterectomy Right finger tips Right knee arthroscopy Reported Medications Reported Meds & Active Scripts Active Reported Senokot (Sennosides) 8.6 Mg Tab 8.6 Mg PO HS Tamsulosin (Tamsulosin HCl) 0.4 Mg Cap 0.4 Mg PO HS Metoprolol Succinate ER 24 HR (Metoprolol Succinate) 100 Mg Tab 100 Mg PO DAILY Losartan (Losartan Potassium) 50 Mg Tab 50 Mg PO DAILY Furosemide 40 Mg Tab 40 Mg PO DAILY Atorvastatin (Atorvastatin Calcium) 20 Mg Tab 20 Mg PO HS Amlodipine (Amlodipine Besylate) 5 Mg Tab 5 Mg PO DAILY Allopurinol 100 Mg Tab 100 Mg PO DAILY Coumadin 3 mg (Warfarin Sodium) Warfarin Sodium 3 mg Tab 3 Mg PO DIRECTED Coumadin 6 mg (Warfarin Sodium) Warfarin Sodium 6 mg Tab 6 Mg PO DIRECTED Active Ordered Medications Current Medications Medications (Trade) Dose Ordered Sig/Deni Route Start Time Stop Time Status Last Admin (NS Flush) 2 ml BID IVF 05/23/16 09:00 05/27/16 10:12 (NS Flush) 2 ml UNSCH PRN IVF 05/23/16 03:30 (Percocet 7.5-325 Mg) 1 tab Q4H PRN PO 05/23/16 12:00 05/26/16 01:58 (Coumadin) 3 mg DAILY@16 PO 05/23/16 16:00 05/26/16 16:22 (Zyloprim) 100 mg DAILY PO 05/24/16 09:00 05/27/16 10:12 (Lipitor) 20 mg HS PO 05/23/16 21:00 05/26/16 20:22 (Senokot) 8.6 mg HS PO 05/23/16 21:00 05/26/16 20:21 (Flomax) 0.4 mg HS PO 05/23/16 21:00 05/26/16 20:21 (Toprol Xl) 100 mg DAILY PO 05/24/16 09:00 05/27/16 10:12 (Cozaar) 50 mg DAILY PO 05/23/16 13:00 05/27/16 10:13 (Norvasc) 5 mg DAILY PO 05/23/16 13:00 05/27/16 10:12 (KCl) 20 meq Q12HR PO 05/24/16 21:00 05/27/16 10:13 (Mag-Al Plus Susp Liq) 30 ml Q6H PRN PO 05/26/16 08:15 (Protonix) 40 mg DAILY PO 05/27/16 09:00 05/27/16 10:13 (Lactulose Liq) 30 ml DAILY PRN PO 05/26/16 08:15 (Albumin 25% Inj) 25 gm DAILY IV 05/27/16 09:00 05/27/16 10:11 (Lasix Inj) 40 mg DAILY IV PUSH 05/27/16 09:00 05/27/16 10:11 Family History Noncontributory Social History He smoked many years ago, he drinks occasional Physical Exam Vital Signs Vital Signs Date Time Temp Pulse Resp B/P Pulse Ox O2 Delivery O2 Flow Rate FiO2 05/27/16 11:00 98.4 78 20 114/67 97 05/27/16 11:00 95 05/27/16 11:00 97 Room Air 05/27/16 10:00 92 05/27/16 09:00 94 05/27/16 08:06 97 21 05/27/16 08:00 84 05/27/16 07:00 74 05/27/16 07:00 98.5 86 20 129/75 92 05/27/16 07:00 92 Room Air 05/27/16 06:00 92 05/27/16 05:00 89 05/27/16 04:00 Room Air 05/27/16 04:00 98.4 96 18 95/54 97 05/27/16 04:00 96 05/27/16 03:00 89 05/27/16 02:00 92 05/27/16 01:00 89 05/27/16 00:00 Room Air 05/27/16 00:00 98.1 87 20 125/70 97 05/27/16 00:00 84 05/26/16 23:00 74 05/26/16 22:00 82 05/26/16 21:00 87 05/26/16 20:30 95 21 05/26/16 20:00 98.3 84 20 115/64 96 05/26/16 20:00 84 05/26/16 20:00 Room Air 05/26/16 18:38 73 05/26/16 17:25 64 05/26/16 16:53 68 05/26/16 16:17 97.9 74 20 106/58 95 05/26/16 15:27 Room Air 05/26/16 15:27 66 Physical Exam GENERAL: Well-nourished, well-developed morbidly obese patient. SKIN: Warm and dry. HEAD: Normocephalic. EYES: No scleral icterus. No injection or drainage. NECK: Supple, trachea midline. No JVD or lymphadenopathy. CARDIOVASCULAR: S1 and S2 distant heart sounds without murmurs, gallops, or rubs. RESPIRATORY: Breath sounds equal bilaterally. No accessory muscle use. GASTROINTESTINAL: Abdomen soft, non-tender, distended. EXTREMITIES: No cyanosis, 3+ edema legs are wrapped. NEUROLOGICAL: Awake, alert, and oriented x 3. Non-focal. Laboratory Laboratory Tests Test 05/27/16 06:53 Prothrombin Time 25.4 Prothromb Time International 2.2 Ratio Sodium Level 136 Potassium Level 3.7 Chloride Level 96 Carbon Dioxide Level 31.0 Anion Gap 9 Blood Urea Nitrogen 22 Creatinine 2.02 Estimat Glomerular Filtration 39 Rate Random Glucose 88 Calcium Level 8.9 Phosphorus Level 2.7 Magnesium Level 2.1 Date/Time Procedure Status Source Growth 05/24/16 23:30 Urine Culture - Final Complete Urine Clean Catch Pseudomonas Aeruginosa Serratia Marcescens Result Diagram: 05/23/16 0000 05/27/16 0653 Imaging Last Impressions Chest X-Ray 05/23/16 0002 Signed Impressions: Service Date/Time: April 00:27 - CONCLUSION: 1. Cardiomegaly with no evidence of pulmonary edema. 2. That is post median sternotomy. Shawn Martinez MD Assessment and Plan Problem List: (1) CKD (chronic kidney disease) stage 3, GFR 30-59 ml/min Plan: Patient creatinine is rising. He is complaining of urine which is darker output I checked the cultures they are positive for Pseudomonas and Serratia 25-50 K, I will start him on aztreonam and Levaquin patient will be observed clear the urine infection , I will increase diuretic Lasix to 40 mg IV Q 12 and see if the creatinine improves, case discussed with Dr. Rich (2) CHF exacerbation Plan: He is getting treated with Lasix and cardiology is following (3) CAD (coronary artery disease) Plan: Previous coronary artery bypass graft (4) HTN (hypertension) Plan: On ARB follow kidney function (5) UTI (lower urinary tract infection) Plan: Aztreonam and Levaquin ordered Problem Qualifiers (1) CHF exacerbation: Qualified Code: I50.9 - Acute on chronic congestive heart failure, unspecified congestive heart failure type Marianna Mosher MD May 27, 2016 14:01 Marianna Mosher MD May 27, 2016 14:01
[2016-05-27] MEDS: AZTREONAM INJ 1,000 MG in SODIUM CHLORIDE 0.9% INJ 100 ML IV SCH ×2 (16:18→23:55)
[2016-05-27] MEDS: LEVOFLOXACIN 250 MG PREMIX INJ 50 ML IV SCH (16:18)
[2016-05-27] MEDS: FUROSEMIDE 40 MG/4 ML VIAL IV PUSH SCH (16:19)
[2016-05-27] MEDS: WARFARIN SOD 3 MG TAB PO SCH (16:19)
--- NOTE | 2016-05-27 16:22 | RADRPT ---
EXAM DATE/TIME: 05/27/2016 14:59 [facility] COMPARISON: No previous studies available for comparison. INDICATIONS : Increased BUN/creatinine. MEDICAL HISTORY : Myocardial infarction. Congestive heart failure. Hypercholesterolemia. CVA. CAD. Atrial fibrillation. HTN. DVT. Pneumonia. Sleep apnea. Dyspnea. BPH. GERD. Chronic renal failure. Osteoporosis. Dysuria. Arthritis. Gout.Gait problems. Anemia. MRSA. Anticoagulant therapy. SURGICAL HISTORY : CABG. Carotid endarterectomy. Umbilical hernia repair. Cardiac catheterization. Vasectomy. Right knee arthroscopic surgery. Two right fingertip amputations. Blood transfusions. ENCOUNTER: Initial ACUITY: 1 day PAIN SCORE: 0/10 LOCATION: Bilateral flank MEASUREMENTS: RIGHT KIDNEY: 10.6 x 5.3 x 4.7 cm LEFT KIDNEY: 10.1 x 5.8 x 6.0 cm FINDINGS: Limited by large body habitus. Both kidneys are slightly echogenic and with mild, generalized cortica l thinning. No focal renal lesion. No hydronephrosis. Nonvisualization of the urinary bladder. No gross abnormality demonstrated in the pelvic cavity. CONCLUSION: 1. Early/mild chronic medical renal disease suspected. 2. No obstructive uropathy or other acute abnormality seen. 3. Nonvisualization of the urinary bladder, presumably empty. Abimael Nunez MD on May 27, 2016 at 16:19 Board Certified Radiologist. This report was verified electronically.
[2016-05-27] MEDS: oxyCODONE/ACETAMINOPHEN 7.5 MG/325 MG TAB PO PRN ×2 (16:53→21:29)
[2016-05-27] MEDS: ATORVASTATIN 20 MG TAB PO SCH (21:21)
[2016-05-27] MEDS: SENNOSIDES 8.6 MG TAB PO SCH (21:21)
[2016-05-27] MEDS: TAMSULOSIN HCL 0.4 MG CAP PO SCH (21:21)
[2016-05-28] VITALS (24 sets, daily range): BP systolic 109–145; BP diastolic 56–84; PULSE 61–122; RESP 16–20; TEMP 97.8–98.6; O2SAT 94–98
[2016-05-28] MEDS: AZTREONAM INJ 1,000 MG in SODIUM CHLORIDE 0.9% INJ 100 ML IV SCH ×2 (06:04→15:05)
[2016-05-28 07:12] LABS: INTERNATIONAL NORMALIZED RATIO 2.3 RATIO; PROTHROMBIN TIME - PATIENT 26.1 SEC (9.8-11.6)
[2016-05-28 07:27] LABS: BICARBONATE 30.8 MEQ/L (21.0-32.0); MAGNESIUM 2.2 MG/DL (1.5-2.5); POTASSIUM 4.1 MEQ/L (3.5-5.1)
--- NOTE | 2016-05-28 07:59 | PD.CARD.PN ---
Subjective Subjective Remarks Feels well. No chest pain or dyspnea Objective Vital Signs / I&O Vital Signs Date Time Temp Pulse Resp B/P Pulse Ox O2 Delivery O2 Flow Rate FiO2 05/28/16 07:00 94 Room Air 05/28/16 07:00 72 05/28/16 07:00 97.8 85 16 117/56 94 05/28/16 05:07 72 05/28/16 04:00 77 05/28/16 04:00 98.0 62 20 123/70 98 05/28/16 03:16 96 Room Air 05/28/16 03:15 77 05/28/16 02:00 61 05/28/16 01:07 78 05/28/16 00:00 98.0 90 20 122/79 95 05/28/16 00:00 87 05/27/16 23:31 96 Room Air 05/27/16 23:00 87 05/27/16 22:00 89 05/27/16 21:00 80 05/27/16 20:00 78 05/27/16 20:00 95 Room Air 05/27/16 20:00 98.0 69 20 118/59 95 05/27/16 19:30 92 05/27/16 19:00 69 05/27/16 18:00 95 05/27/16 17:00 82 05/27/16 16:00 89 05/27/16 15:00 98.6 72 20 96/54 98 05/27/16 15:00 98 Room Air 05/27/16 15:00 95 05/27/16 14:00 82 05/27/16 13:00 88 05/27/16 12:00 84 05/27/16 11:00 98.4 78 20 114/67 97 05/27/16 11:00 95 05/27/16 11:00 97 Room Air 05/27/16 10:00 92 05/27/16 09:00 94 05/27/16 08:06 97 21 05/27/16 08:00 84 I/O 05/27/16 05/27/16 05/27/16 05/28/16 05/28/16 05/28/16 07:00 15:00 23:00 07:00 15:00 23:00 Intake Total 482 ml 680 ml 340 ml Output Total 100 ml 300 ml 300 ml Balance 382 ml 380 ml 40 ml Intake Oral 480 ml 480 ml 240 ml IV Total 2 ml 200 ml 100 ml Output Urine Total 100 ml 300 ml 300 ml # Bowel Movements 0 0 Physical Exam Lungs clear Laboratory Laboratory Tests Test 05/28/16 05:30 Prothrombin Time 26.1 SEC Prothromb Time International 2.3 RATIO Ratio Sodium Level 135 MEQ/L Potassium Level 4.1 MEQ/L Chloride Level 96 MEQ/L Carbon Dioxide Level 30.8 MEQ/L Anion Gap 8 MEQ/L Blood Urea Nitrogen 22 MG/DL Creatinine 2.16 MG/DL Estimat Glomerular Filtration 36 ML/MIN Rate Random Glucose 90 MG/DL Calcium Level 9.0 MG/DL Phosphorus Level 3.1 MG/DL Magnesium Level 2.2 MG/DL Assessment and Plan Assessment and Plan Inview of V tach will order lexiscan to R/O occult ischemia. Creatinine increasing and will hold lasix for now Connor Wang MD, FACC May 28, 2016 07:59
[2016-05-28] MEDS: ALBUMIN HUMAN 25% 25 GM/100 ML BAGP IV SCH (08:20)
[2016-05-28] MEDS: METOPROLOL SUCCINATE 50 MG EXTENDED RELEASE TAB PO SCH (08:27)
[2016-05-28] MEDS: ALLOPURINOL 100 MG TAB PO SCH (08:27)
[2016-05-28] MEDS: PANTOPRAZOLE SOD 40 MG DELAYED RELEASE TAB PO SCH (08:27)
[2016-05-28] MEDS: LOSARTAN 50 MG TAB PO SCH (08:28)
[2016-05-28] MEDS: SODIUM CHLORIDE 0.9% FLUSH 5 ML FLUSH IVF SCH ×2 (08:28→20:48)
[2016-05-28] MEDS: POTASSIUM CHLORIDE 20 MEQ CONTROLLED RELEASE TAB PO SCH ×2 (08:28→20:58)
[2016-05-28] MEDS: amLODIPine BESYLATE 5 MG TAB PO SCH (08:28)
[2016-05-28] MEDS: RESP: ALBUTEROL 2.5 MG/IPRATROPIUM 0.5 MG NEB (SCH) NEB ×2 (08:46→11:52)
[2016-05-28] MEDS: FUROSEMIDE 40 MG/4 ML VIAL IV PUSH SCH (08:51)
--- NOTE | 2016-05-28 10:30 | HHI.PR ---
Subjective Remarks No new complaints. Pts feels that the LE edema and the scrotal edema are slightly improved Pt has bandages on bilateral LE wounds No fevers or chills Pt reports several years of poor appetite since his previous CABG in 2011 Objective Vitals Vital Signs Date Time Temp Pulse Resp B/P Pulse Ox O2 Delivery O2 Flow Rate FiO2 05/28/16 09:00 84 05/28/16 08:46 97 21 05/28/16 08:00 79 05/28/16 07:00 94 Room Air 05/28/16 07:00 72 05/28/16 07:00 97.8 85 16 117/56 94 05/28/16 05:07 72 05/28/16 04:00 77 05/28/16 04:00 98.0 62 20 123/70 98 05/28/16 03:16 96 Room Air 05/28/16 03:15 77 05/28/16 02:00 61 05/28/16 01:07 78 05/28/16 00:00 98.0 90 20 122/79 95 05/28/16 00:00 87 05/27/16 23:31 96 Room Air 05/27/16 23:00 87 05/27/16 22:00 89 05/27/16 21:00 80 05/27/16 20:00 78 05/27/16 20:00 95 Room Air 05/27/16 20:00 98.0 69 20 118/59 95 05/27/16 19:30 92 05/27/16 19:00 69 05/27/16 18:00 95 05/27/16 17:00 82 05/27/16 16:00 89 05/27/16 15:00 98.6 72 20 96/54 98 05/27/16 15:00 98 Room Air 05/27/16 15:00 95 05/27/16 14:00 82 05/27/16 13:00 88 05/27/16 12:00 84 05/27/16 11:00 98.4 78 20 114/67 97 05/27/16 11:00 95 05/27/16 11:00 97 Room Air 05/27/16 05/27/16 05/28/16 15:00 23:00 07:00 Intake Total 680 ml 340 ml Output Total 300 ml 300 ml Balance 380 ml 40 ml Intake Oral 480 ml 240 ml IV Total 200 ml 100 ml Output Urine Total 300 ml 300 ml # Bowel Movements 0 Result Diagram: 05/28/16 0530 Other Results Laboratory Tests Test 05/26/16 05/27/16 05/28/16 11:55 06:53 05:30 Blood Gas Puncture Site RT BRACHIAL Blood Gas Patient Temperature 98.6 Blood Gas HCO3 27 mmol/L Blood Gas Base Excess 3.4 mmol/L Blood Gas Oxygen Saturation 92 % Arterial Blood pH 7.43 Arterial Blood Partial 42 mmHg Pressure CO2 Arterial Blood Partial 76 mmHg Pressure O2 Arterial Blood Oxygen Content 13.2 Vol % Arterial Blood 2.1 % Carboxyhemoglobin Arterial Blood Methemoglobin 0.9 % Blood Gas Hemoglobin 10.1 G/DL Blood Gas Inspired Oxygen 21 % Prothrombin Time 25.4 SEC 26.1 SEC Prothromb Time International 2.2 RATIO 2.3 RATIO Ratio Sodium Level 136 MEQ/L 135 MEQ/L Potassium Level 3.7 MEQ/L 4.1 MEQ/L Chloride Level 96 MEQ/L 96 MEQ/L Carbon Dioxide Level 31.0 MEQ/L 30.8 MEQ/L Anion Gap 9 MEQ/L 8 MEQ/L Blood Urea Nitrogen 22 MG/DL 22 MG/DL Creatinine 2.02 MG/DL 2.16 MG/DL Estimat Glomerular Filtration 39 ML/MIN 36 ML/MIN Rate Random Glucose 88 MG/DL 90 MG/DL Calcium Level 8.9 MG/DL 9.0 MG/DL Phosphorus Level 2.7 MG/DL 3.1 MG/DL Magnesium Level 2.1 MG/DL 2.2 MG/DL Imaging Last Impressions Renal Ultrasound 05/27/16 0000 Signed Impressions: Service Date/Time: Friday, May 27, 2016 14:59 - CONCLUSION: 1. Early/mild chronic medical renal disease suspected. 2. No obstructive uropathy or other acute abnormality seen. 3. Nonvisualization of the urinary bladder, presumably empty. Abimael Nunez MD Chest X-Ray 05/23/16 0002 Signed Impressions: Service Date/Time: April 00:27 - CONCLUSION: 1. Cardiomegaly with no evidence of pulmonary edema. 2. That is post median sternotomy. Shawn Martinez MD Objective Remarks General: NAD, AAOx3 Chest: CTA Cardiac: Irregularly irregular, rate controlled Abd: +BS, soft, obese, ND/NT : Scrotal edema Ext: Bilateral LE pitting edema to the upper thighs A/P Problem List: (1) CHF exacerbation Status: Acute Plan: - Pt with CAD s/p 3v CABG in 2011 and A. fib presented with SOB, worsening LE edema with breakdown of lower ext skin and severe scrotal edema. Pt says he was going to lymphedema clinic for wraps and therapy in past. - Prior to admission his pcp doubled his Lasix last week w/out improvement. - He is noncompliant with CPAP for quite some time. ?Right heart failure - Pt presented with acute systolic CHF exacerbation. - 2D echo (05/23/16) - Estimated EF 45-50%, no regional wall motion abnormalities - Mild to moderate tricuspid regurgitation - PA peak pressure 34mmHg - Pt had been on albumin and Lasix. - Nephrology and Cardiology following. - Lasix was increased to 40mg IV BID on 05/27 - Pt UOP was 300mL overnight. - Creatinine has been increasing, today is 2.16 - Cardiology has recommended holding IV Lasix at this time. - Pt is planned for a Lexiscan today as he had noted V tach - Case discussed between Dr. Rich and Dr. Garcia who had previously been following the pt for his SUKUMAR. We will start the pt back on BiPAP at night @16/12 FiO2 30% and adjust as needed to maintain O2 saturations above 92% - Recheck labs in AM - Elevate legs and scrotum - Wrap legs - Wound care - PT daily - DVT prophylaxis (2) Atrial fibrillation Status: Chronic Plan: - Cont. BB - Pt is currently anticoagulated on Coumadin 3mg po daily - INR 2.3 today - Monitor (3) CAD (coronary artery disease) Status: Chronic Plan: - s/p cabg x 3 2011. - Pt had V tach noted on telemetry - Cardiology following - Pt planned for lexiscan to r/o ischemia (4) HTN (hypertension) Status: Chronic Plan: - Cont home meds - Monitor (5) CKD (chronic kidney disease) stage 3, GFR 30-59 ml/min Status: Chronic Plan: - See above. Assessment and Plan Patient examined. Assessment and plan formulated with Vanda Vaca PA-C. I agree with the above. Problem Qualifiers (1) CHF exacerbation: Qualified Code: I50.9 - Acute on chronic congestive heart failure, unspecified congestive heart failure type Vanda Vaca May 28, 2016 10:30 Michael Rich DO May 29, 2016 10:48
--- NOTE | 2016-05-28 11:17 | HHI.PR ---
Subjective Remarks LATE ENTRY FOR 05/27/15 NOTE FROM 05/27/15 DID NOT SAVE IN [employer]. Pt with NO new complaints. Objective Vitals Vital Signs Date Time Temp Pulse Resp B/P Pulse Ox O2 Delivery O2 Flow Rate FiO2 05/28/16 10:00 85 05/28/16 09:00 84 05/28/16 08:46 97 21 05/28/16 08:00 79 05/28/16 07:00 94 Room Air 05/28/16 07:00 72 05/28/16 07:00 97.8 85 16 117/56 94 05/28/16 05:07 72 05/28/16 04:00 77 05/28/16 04:00 98.0 62 20 123/70 98 05/28/16 03:16 96 Room Air 05/28/16 03:15 77 05/28/16 02:00 61 05/28/16 01:07 78 05/28/16 00:00 98.0 90 20 122/79 95 05/28/16 00:00 87 05/27/16 23:31 96 Room Air 05/27/16 23:00 87 05/27/16 22:00 89 05/27/16 21:00 80 05/27/16 20:00 78 05/27/16 20:00 95 Room Air 05/27/16 20:00 98.0 69 20 118/59 95 05/27/16 19:30 92 05/27/16 19:00 69 05/27/16 18:00 95 05/27/16 17:00 82 05/27/16 16:00 89 05/27/16 15:00 98.6 72 20 96/54 98 05/27/16 15:00 98 Room Air 05/27/16 15:00 95 05/27/16 14:00 82 05/27/16 13:00 88 05/27/16 12:00 84 05/27/16 05/27/16 05/28/16 15:00 23:00 07:00 Intake Total 680 ml 340 ml Output Total 300 ml 300 ml Balance 380 ml 40 ml Intake Oral 480 ml 240 ml IV Total 200 ml 100 ml Output Urine Total 300 ml 300 ml # Bowel Movements 0 Result Diagram: 05/28/16 0530 Imaging Last Impressions Renal Ultrasound 05/27/16 0000 Signed Impressions: Service Date/Time: Friday, May 27, 2016 14:59 - CONCLUSION: 1. Early/mild chronic medical renal disease suspected. 2. No obstructive uropathy or other acute abnormality seen. 3. Nonvisualization of the urinary bladder, presumably empty. Abimael Nunez MD Chest X-Ray 05/23/16 0002 Signed Impressions: Service Date/Time: April 00:27 - CONCLUSION: 1. Cardiomegaly with no evidence of pulmonary edema. 2. That is post median sternotomy. Shawn Martinez MD Objective Remarks GENERAL: This is a well-nourished, well-developed patient, in no apparent distress. CARDIOVASCULAR: Regular rate and rhythm without murmurs, gallops, or rubs. RESPIRATORY: Clear to auscultation. Breath sounds equal bilaterally. No wheezes , rales, or rhonchi. GASTROINTESTINAL: Abdomen soft, non-tender, nondistended. Normal active bowel sounds MUSCULOSKELETAL: 2+ LE edema and scrotal edema NEURO: Alert & Oriented x4 to person, place, time, situation. Moves all ext x4 A/P Problem List: (1) CHF exacerbation Status: Acute Plan: - comgmt with Cardiology & Nephrology - Pt with CAD s/p 3v CABG in 2011 and A. fib presented with SOB, worsening LE edema with breakdown of lower ext skin and severe scrotal edema. Pt says he was going to lymphedema clinic for wraps and therapy in past. - Prior to admission his pcp doubled his Lasix last week w/out improvement. - He is noncompliant with CPAP. - Pt presented with acute systolic CHF exacerbation. - 2D echo (05/23/16) - Estimated EF 45-50%, no regional wall motion abnormalities - Mild to moderate tricuspid regurgitation - PA peak pressure 34mmHg - IV lasix & IV albumin - Case d/w Dr. Mosher (05/27/15) - Case d/w Dr. Braun (05/27/15) - Elevate legs and scrotum - Wrap legs - Wound care - PT daily - DVT prophylaxis (2) UTI (lower urinary tract infection) Status: Acute Plan: - Urine Cx: Serratia & pseudomonas, but low CFU - aztreonam and Levaquin per nephrology - observe clinical response (3) Atrial fibrillation Status: Chronic Plan: - Cont. BB - Pt is currently anticoagulated on Coumadin 3mg po daily - Monitor (4) CAD (coronary artery disease) Status: Chronic Plan: - s/p cabg x 3 2011. - Pt had V tach noted on telemetry - Cardiology following - Pt planned for lexiscan to r/o ischemia (5) HTN (hypertension) Status: Chronic Plan: - Cont home meds - Monitor (6) CKD (chronic kidney disease) stage 3, GFR 30-59 ml/min Status: Chronic Plan: - if Creatinine continues to rise, may require HD - Case d/w Dr. Mosher (05/27/15) Problem Qualifiers (1) CHF exacerbation: Qualified Code: I50.9 - Acute on chronic congestive heart failure, unspecified congestive heart failure type Michael Rich DO May 28, 2016 11:17
[2016-05-28] MEDS ORDERED: REGADENOSON INJ 0.4 MG/5 ML SYR ONE (13:17)
[2016-05-28] MEDS: WARFARIN SOD 3 MG TAB PO SCH (15:05)
--- NOTE | 2016-05-28 15:38 | HHI.NPPN ---
Subjective History of Present Illness 80 year old with CHF/Anasarca UTI Additional Remarks Stated urine flow is better Review of Systems General Constitutional: Fatigue Cardiovascular Cardiac: Edema Objective Data Data 05/27/16 05/28/16 19:00 07:00 Intake Total 680 ml 340 ml Output Total 300 ml 300 ml Balance 380 ml 40 ml Intake Oral 480 ml 240 ml IV Total 200 ml 100 ml Output Urine Total 300 ml 300 ml # Bowel Movements 0 Vital Signs Date Time Temp Pulse Resp B/P Pulse Ox O2 Delivery O2 Flow Rate FiO2 05/28/16 15:00 97.8 90 20 145/80 96 05/28/16 15:00 81 05/28/16 15:00 94 Room Air 05/28/16 12:00 122 05/28/16 11:00 94 Room Air 05/28/16 11:00 69 05/28/16 11:00 97.9 77 16 145/84 94 05/28/16 10:00 85 05/28/16 09:00 84 05/28/16 08:46 97 21 05/28/16 08:00 79 05/28/16 07:00 94 Room Air 05/28/16 07:00 72 05/28/16 07:00 97.8 85 16 117/56 94 05/28/16 05:07 72 05/28/16 04:00 77 05/28/16 04:00 98.0 62 20 123/70 98 05/28/16 03:16 96 Room Air 05/28/16 03:15 77 05/28/16 02:00 61 05/28/16 01:07 78 05/28/16 00:00 98.0 90 20 122/79 95 05/28/16 00:00 87 05/27/16 23:31 96 Room Air 05/27/16 23:00 87 05/27/16 22:00 89 05/27/16 21:00 80 05/27/16 20:00 78 05/27/16 20:00 95 Room Air 05/27/16 20:00 98.0 69 20 118/59 95 05/27/16 19:30 92 05/27/16 19:00 69 05/27/16 18:00 95 05/27/16 17:00 82 05/27/16 16:00 89 -: 05/28/16 0530 Physical Exam General Appearance: Well Developed, Well Nourished Eyes Eye Exam: Pupils Equal Neck Neck Exam: Neck Supple Pulmonary Resp Exam: Decreased Bases Cardiology CV Exam: Irregular Gastrointestinal/Abdomen GI Exam: Soft, Distended Extremeties Extremities Exam: Pitting Edema, Dependent Edema Assessment/Plan Problem List: (1) CKD (chronic kidney disease) stage 3, GFR 30-59 ml/min Plan: his Urine output has improved Cr 2.16 slightly higher dysuria resolved with treating UTI Cardiology decided to hold Lasix he will benefit from diuresis resume if possible (2) CHF exacerbation Plan: He is getting treated with Lasix and cardiology is managing Lasix (3) CAD (coronary artery disease) Plan: Previous coronary artery bypass graft (4) HTN (hypertension) Plan: On ARB follow kidney function (5) UTI (lower urinary tract infection) Plan: Aztreonam and Levaquin Problem Qualifiers (1) CHF exacerbation: Qualified Code: I50.9 - Acute on chronic congestive heart failure, unspecified congestive heart failure type Marianna Mosher MD May 28, 2016 15:38
[2016-05-28] MEDS: ATORVASTATIN 20 MG TAB PO SCH (20:47)
[2016-05-28] MEDS: oxyCODONE/ACETAMINOPHEN 7.5 MG/325 MG TAB PO PRN (20:47)
[2016-05-28] MEDS: TAMSULOSIN HCL 0.4 MG CAP PO SCH (20:48)
[2016-05-28] MEDS: SENNOSIDES 8.6 MG TAB PO SCH (20:48)
[2016-05-28] MEDS: POTASSIUM CHLORIDE 10 MEQ CONTROLLED RELEASE TAB PO SCH (22:44)
[2016-05-29] VITALS (24 sets, daily range): BP systolic 110–140; BP diastolic 58–84; PULSE 69–94; RESP 14–20; TEMP 98–98.8; O2SAT 96–98
[2016-05-29] MEDS: AZTREONAM INJ 1,000 MG in SODIUM CHLORIDE 0.9% INJ 100 ML IV SCH ×3 (00:14→15:00)
[2016-05-29 08:32] LABS: INTERNATIONAL NORMALIZED RATIO 2.3 RATIO; PROTHROMBIN TIME - PATIENT 26.2 SEC (9.8-11.6)
[2016-05-29 08:38] LABS: BASOPHIL % 0.7 % (0.0-2.0); EOSINOPHIL # 0.3 TH/MM3 (0-0.4); EOSINOPHIL % 5.6 % (0.0-4.0); HEMATOCRIT 29.2 % (39.0-51.0); HEMO FLAGS DIFF FINAL; LYMPHOCYTE # 0.8 TH/MM3 (1.0-4.8); MEAN CELL VOLUME 89.5 FL (80.0-100.0); MEAN CORPUSCULAR HEMOGLOBIN 28.7 PG (27.0-34.0); MEAN CORPUSCULAR HGB CONC 32.1 % (32.0-36.0); NEUT % 67.7 % (16.0-70.0); PLATELET COUNT 229 TH/MM3 (150-450); RED BLOOD COUNT 3.26 MIL/MM3 (4.50-5.90); RED CELL DISTRIBUTION WIDTH 16.2 % (11.6-17.2); WHITE BLOOD COUNT 4.5 TH/MM3 (4.0-11.0)
[2016-05-29] MEDS: ALBUMIN HUMAN 25% 25 GM/100 ML BAGP IV SCH (08:49)
[2016-05-29] MEDS: SODIUM CHLORIDE 0.9% FLUSH 5 ML FLUSH IVF SCH ×2 (08:50→23:02)
[2016-05-29] MEDS: POTASSIUM CHLORIDE 10 MEQ CONTROLLED RELEASE TAB PO SCH ×2 (08:50→23:02)
[2016-05-29] MEDS: LOSARTAN 50 MG TAB PO SCH (08:50)
[2016-05-29] MEDS: ALLOPURINOL 100 MG TAB PO SCH (08:50)
[2016-05-29] MEDS: PANTOPRAZOLE SOD 40 MG DELAYED RELEASE TAB PO SCH (08:50)
[2016-05-29] MEDS: amLODIPine BESYLATE 5 MG TAB PO SCH (08:50)
[2016-05-29] MEDS: METOPROLOL SUCCINATE 50 MG EXTENDED RELEASE TAB PO SCH (08:50)
[2016-05-29 08:56] LABS: BICARBONATE 28.9 MEQ/L (21.0-32.0); MAGNESIUM 2.1 MG/DL (1.5-2.5); POTASSIUM 4.4 MEQ/L (3.5-5.1)
--- NOTE | 2016-05-29 10:32 | HHI.PR ---
Subjective Remarks Pt complains of continued scrotal edema He had 395cc of urine out overnight. Objective Vitals Vital Signs Date Time Temp Pulse Resp B/P Pulse Ox O2 Delivery O2 Flow Rate FiO2 05/29/16 09:31 98.8 76 18 140/80 05/29/16 09:30 76 05/29/16 08:02 74 05/29/16 07:37 Room Air 05/29/16 06:00 74 05/29/16 05:10 74 05/29/16 04:00 98.6 77 20 136/76 96 05/29/16 04:00 83 05/29/16 03:16 95 Room Air 05/29/16 03:15 74 05/29/16 02:00 74 05/29/16 01:00 69 05/29/16 00:00 98.6 74 20 110/58 96 05/29/16 00:00 95 Room Air 05/29/16 00:00 94 05/28/16 23:00 84 05/28/16 22:39 98 21 05/28/16 22:00 78 05/28/16 21:00 80 05/28/16 20:00 86 05/28/16 20:00 98.6 77 20 109/65 96 05/28/16 20:00 95 Room Air 05/28/16 19:00 77 05/28/16 18:00 84 05/28/16 17:00 103 05/28/16 16:00 91 05/28/16 15:00 97.8 90 20 145/80 96 05/28/16 15:00 81 05/28/16 15:00 94 Room Air 05/28/16 12:00 122 05/28/16 11:00 94 Room Air 05/28/16 11:00 69 05/28/16 11:00 97.9 77 16 145/84 94 05/28/16 05/28/16 05/29/16 15:00 23:00 07:00 Intake Total 720 ml 860 ml Output Total 720 ml 395 ml Balance 0 ml 465 ml Intake Oral 720 ml 760 ml IV Total 100 ml Output Urine Total 720 ml 395 ml # Bowel Movements 0 Result Diagram: 05/29/16 0645 05/29/16 0645 Other Results Laboratory Tests Test 05/28/16 05/29/16 05:30 06:45 Prothrombin Time 26.1 SEC 26.2 SEC Prothromb Time International 2.3 RATIO 2.3 RATIO Ratio Sodium Level 135 MEQ/L 138 MEQ/L Potassium Level 4.1 MEQ/L 4.4 MEQ/L Chloride Level 96 MEQ/L 99 MEQ/L Carbon Dioxide Level 30.8 MEQ/L 28.9 MEQ/L Anion Gap 8 MEQ/L 10 MEQ/L Blood Urea Nitrogen 22 MG/DL 23 MG/DL Creatinine 2.16 MG/DL 1.99 MG/DL Estimat Glomerular Filtration 36 ML/MIN 39 ML/MIN Rate Random Glucose 90 MG/DL 80 MG/DL Calcium Level 9.0 MG/DL 9.1 MG/DL Phosphorus Level 3.1 MG/DL Magnesium Level 2.2 MG/DL 2.1 MG/DL White Blood Count 4.5 TH/MM3 Red Blood Count 3.26 MIL/MM3 Hemoglobin 9.4 GM/DL Hematocrit 29.2 % Mean Corpuscular Volume 89.5 FL Mean Corpuscular Hemoglobin 28.7 PG Mean Corpuscular Hemoglobin 32.1 % Concent Red Cell Distribution Width 16.2 % Platelet Count 229 TH/MM3 Mean Platelet Volume 8.4 FL Neutrophils (%) (Auto) 67.7 % Lymphocytes (%) (Auto) 17.0 % Monocytes (%) (Auto) 9.0 % Eosinophils (%) (Auto) 5.6 % Basophils (%) (Auto) 0.7 % Neutrophils # (Auto) 3.0 TH/MM3 Lymphocytes # (Auto) 0.8 TH/MM3 Monocytes # (Auto) 0.4 TH/MM3 Eosinophils # (Auto) 0.3 TH/MM3 Basophils # (Auto) 0.0 TH/MM3 CBC Comment DIFF FINAL Differential Comment Imaging Last Impressions Renal Ultrasound 05/27/16 0000 Signed Impressions: Service Date/Time: Friday, May 27, 2016 14:59 - CONCLUSION: 1. Early/mild chronic medical renal disease suspected. 2. No obstructive uropathy or other acute abnormality seen. 3. Nonvisualization of the urinary bladder, presumably empty. Abimael Nunez MD Chest X-Ray 05/23/16 0002 Signed Impressions: Service Date/Time: April 00:27 - CONCLUSION: 1. Cardiomegaly with no evidence of pulmonary edema. 2. That is post median sternotomy. Shawn Martinez MD Objective Remarks General: NAD, AAOx3 Chest: CTA Cardiac: Irregularly irregular, rate controlled Abd: +BS, soft, obese, ND/NT : Scrotal edema Ext: Bilateral LE pitting edema to the upper thighs A/P Problem List: (1) CHF exacerbation Status: Acute Plan: - Pt with CAD s/p 3v CABG in 2011 and A. fib presented with SOB, worsening LE edema with breakdown of lower ext skin and severe scrotal edema. Pt says he was going to lymphedema clinic for wraps and therapy in past. - Prior to admission his pcp doubled his Lasix last week w/out improvement. - He is noncompliant with CPAP for quite some time. ?Right heart failure - Pt presented with acute systolic CHF exacerbation. - 2D echo (05/23/16) - Estimated EF 45-50%, no regional wall motion abnormalities - Mild to moderate tricuspid regurgitation - PA peak pressure 34mmHg - Pt had been on albumin and Lasix. - Nephrology and Cardiology following. - Lasix was increased to 40mg IV BID on 05/27 - Pt UOP was over 1100mL yesterday. Weight is unchanged. - Creatinine improved slightly today is 1.99 - Cardiology has recommended holding IV Lasix at this time. - Await Lexiscan results - Case discussed between Dr. Rich and Dr. Garcia on 05/28/16, who had previously been following the pt for his SUKUMAR. - Pt was started back on BiPAP at night @16/12 FiO2 30% and adjust as needed to maintain O2 saturations above 92% on 05/28/16 - Recheck labs in AM - Elevate legs and scrotum - Wrap legs - Wound care - PT daily - DVT prophylaxis (2) Atrial fibrillation Status: Chronic Plan: - Cont. BB - Pt is currently anticoagulated on Coumadin 3mg po daily - INR 2.3 today - Monitor (3) CAD (coronary artery disease) Status: Chronic Plan: - s/p cabg x 3 2011. - Pt had V tach noted on telemetry - Cardiology following - Pt planned for lexiscan to r/o ischemia (4) HTN (hypertension) Status: Chronic Plan: - Cont home meds - Monitor (5) CKD (chronic kidney disease) stage 3, GFR 30-59 ml/min Status: Chronic Plan: - See above. Assessment and Plan Patient examined. Assessment and plan formulated with Vanda Vaca PA-C. I agree with the above. Problem Qualifiers (1) CHF exacerbation: Qualified Code: I50.9 - Acute on chronic congestive heart failure, unspecified congestive heart failure type Vanda Vaca May 29, 2016 10:32 Michael Rich DO May 30, 2016 09:28
--- NOTE | 2016-05-29 12:07 | HHI.NPPN ---
Subjective History of Present Illness 80 year old with CHF/Anasarca UTI Additional Remarks Stated urine flow is better Review of Systems General Constitutional: Fatigue Cardiovascular Cardiac: Edema Objective Data Data 05/28/16 05/29/16 19:00 07:00 Intake Total 720 ml 860 ml Output Total 720 ml 395 ml Balance 0 ml 465 ml Intake Oral 720 ml 760 ml IV Total 100 ml Output Urine Total 720 ml 395 ml # Bowel Movements 0 Vital Signs Date Time Temp Pulse Resp B/P Pulse Ox O2 Delivery O2 Flow Rate FiO2 05/29/16 09:31 98.8 76 18 140/80 05/29/16 09:30 76 05/29/16 08:02 74 05/29/16 07:37 Room Air 05/29/16 06:00 74 05/29/16 05:10 74 05/29/16 04:00 98.6 77 20 136/76 96 05/29/16 04:00 83 05/29/16 03:16 95 Room Air 05/29/16 03:15 74 05/29/16 02:00 74 05/29/16 01:00 69 05/29/16 00:00 98.6 74 20 110/58 96 05/29/16 00:00 95 Room Air 05/29/16 00:00 94 05/28/16 23:00 84 05/28/16 22:39 98 21 05/28/16 22:00 78 05/28/16 21:00 80 05/28/16 20:00 86 05/28/16 20:00 98.6 77 20 109/65 96 05/28/16 20:00 95 Room Air 05/28/16 19:00 77 05/28/16 18:00 84 05/28/16 17:00 103 05/28/16 16:00 91 05/28/16 15:00 97.8 90 20 145/80 96 05/28/16 15:00 81 05/28/16 15:00 94 Room Air -: 05/29/16 0645 05/29/16 0645 Physical Exam General Appearance: Well Developed, Well Nourished Eyes Eye Exam: Pupils Equal Neck Neck Exam: Neck Supple Pulmonary Resp Exam: Decreased Bases Cardiology CV Exam: Irregular Gastrointestinal/Abdomen GI Exam: Soft, Distended Extremeties Extremities Exam: Pitting Edema, Dependent Edema Assessment/Plan Problem List: (1) CKD (chronic kidney disease) stage 3, GFR 30-59 ml/min Plan: his Urine output has improved Cr 1.99 dysuria resolved with treating UTI Lasix on hold he will benefit from diuresis resume if possible (2) CHF exacerbation Plan: He is getting treated with Lasix and cardiology is managing Lasix (3) CAD (coronary artery disease) Plan: Previous coronary artery bypass graft (4) HTN (hypertension) Plan: On ARB follow kidney function (5) UTI (lower urinary tract infection) Plan: Aztreonam and Levaquin Problem Qualifiers (1) CHF exacerbation: Qualified Code: I50.9 - Acute on chronic congestive heart failure, unspecified congestive heart failure type Marianna Mosher MD May 29, 2016 12:07
--- NOTE | 2016-05-29 13:10 | RADRPT ---
EXAM DATE/TIME: 05/28/2016 13:27 [facility] COMPARISON: MYOCARDIAL PERF PHARM SPECT, GATED W/EF, May 05, 2012, 10:12. INDICATIONS : Substernal chest pain. Coronary artery disease. Myocardial infraction. DOSE: 28.7 mCi Tc99m Myoview 30 mCi Tc99m Myoview 0.4 mg Lexiscan STRESS SYMPTOMS: Dizziness. MEDICAL HISTORY : Hernia, umbilical. SURGICAL HISTORY : CABG Carotid endarterectomy. Vasectomy. ENCOUNTER: Initial ACUITY: 1 day PAIN SCALE: 1/10 LOCATION: Substernal chest TECHNIQUE: The patient underwent pharmacologic stress with infusion of prescribed dose. Continuous ECG tracing was monitored during stress. Conventional SPECT imaging was performed after stress. The examination was performed on a SPECT/CT scanner, both attenuation and non-corrected datasets were reviewed. FINDINGS: DISTRIBUTION: The maximum perfused segment at stress is in the anterior wall. PERFUSION STUDY: There is a fixed perfusion defect with in the inferolateral wall. CONCLUSION: 1. Fixed perfusion defect in the inferolateral wall characteristic of prior myocardial infarction. Fi ndings similar to 2011 exam. RISK CATEGORY: High (>3% Annual Mortality Rate) Jareth Moreno MD on May 29, 2016 at 12:52 Board Certified Radiologist. This report was verified electronically.
[2016-05-29] MEDS: LEVOFLOXACIN 250 MG PREMIX INJ 50 ML IV SCH (15:46)
[2016-05-29] MEDS: WARFARIN SOD 3 MG TAB PO SCH (16:00)
[2016-05-29] MEDS: TAMSULOSIN HCL 0.4 MG CAP PO SCH (23:02)
[2016-05-29] MEDS: ATORVASTATIN 20 MG TAB PO SCH (23:02)
[2016-05-29] MEDS: SENNOSIDES 8.6 MG TAB PO SCH (23:03)
[2016-05-29] MEDS: oxyCODONE/ACETAMINOPHEN 7.5 MG/325 MG TAB PO PRN (23:11)
[2016-05-30] VITALS (27 sets, daily range): BP systolic 75–148; BP diastolic 59–87; PULSE 55–82; RESP 14–20; TEMP 97.4–98.7; O2SAT 94–98
[2016-05-30] MEDS: AZTREONAM INJ 1,000 MG in SODIUM CHLORIDE 0.9% INJ 100 ML IV SCH ×4 (00:56→23:00)
[2016-05-30] MEDS: oxyCODONE/ACETAMINOPHEN 7.5 MG/325 MG TAB PO PRN (06:03)
[2016-05-30 06:09] LABS: AUTOMATED NEUTROPHIL # 2.7 TH/MM3 (1.8-7.7); EOSINOPHIL # 0.2 TH/MM3 (0-0.4); EOSINOPHIL % 5.5 % (0.0-4.0); HEMATOCRIT 28.4 % (39.0-51.0); HEMO FLAGS DIFF FINAL; LYMPH % 16.9 % (9.0-44.0); LYMPHOCYTE # 0.7 TH/MM3 (1.0-4.8); MEAN CELL VOLUME 89.6 FL (80.0-100.0); MEAN CORPUSCULAR HEMOGLOBIN 28.8 PG (27.0-34.0); MEAN CORPUSCULAR HGB CONC 32.1 % (32.0-36.0); MONO % 10.5 % (0.0-8.0); NEUT % 66.1 % (16.0-70.0); PLATELET COUNT 218 TH/MM3 (150-450); RED BLOOD COUNT 3.17 MIL/MM3 (4.50-5.90); RED CELL DISTRIBUTION WIDTH 16.2 % (11.6-17.2); WHITE BLOOD COUNT 4.1 TH/MM3 (4.0-11.0)
[2016-05-30 06:17] LABS: PROTHROMBIN TIME - PATIENT 22.5 SEC (9.8-11.6)
[2016-05-30 06:19] LABS: MAGNESIUM 2.2 MG/DL (1.5-2.5); POTASSIUM 4.4 MEQ/L (3.5-5.1)
[2016-05-30] MEDS: METOPROLOL SUCCINATE 50 MG EXTENDED RELEASE TAB PO SCH (08:33)
[2016-05-30] MEDS: amLODIPine BESYLATE 5 MG TAB PO SCH (08:33)
[2016-05-30] MEDS: POTASSIUM CHLORIDE 10 MEQ CONTROLLED RELEASE TAB PO SCH ×2 (08:33→21:00)
[2016-05-30] MEDS: LOSARTAN 50 MG TAB PO SCH (08:34)
[2016-05-30] MEDS: ALLOPURINOL 100 MG TAB PO SCH (08:34)
[2016-05-30] MEDS: PANTOPRAZOLE SOD 40 MG DELAYED RELEASE TAB PO SCH (08:34)
[2016-05-30] MEDS: SODIUM CHLORIDE 0.9% FLUSH 5 ML FLUSH IVF SCH ×2 (08:35→21:06)
--- NOTE | 2016-05-30 09:38 | HHI.PR ---
Subjective Remarks No new complaints. Pt sitting in chair with feet dangling. Objective Vitals Vital Signs Date Time Temp Pulse Resp B/P Pulse Ox O2 Delivery O2 Flow Rate FiO2 05/30/16 09:07 98 21 05/30/16 08:42 18 05/30/16 08:00 98.4 55 16 115/73 95 05/30/16 06:31 98.3 66 14 75/59 97 05/30/16 06:00 69 05/30/16 05:00 71 05/30/16 04:00 72 05/30/16 03:56 94 Room Air 05/30/16 03:00 70 05/30/16 02:24 94 Room Air 05/30/16 02:22 98.7 70 14 140/59 97 05/30/16 02:00 72 05/30/16 01:00 75 05/30/16 00:00 82 05/29/16 23:00 89 05/29/16 22:00 84 05/29/16 22:00 97 Room Air 05/29/16 21:00 83 05/29/16 20:00 98.7 70 14 119/72 97 05/29/16 20:00 89 05/29/16 19:00 81 05/29/16 18:11 76 05/29/16 17:43 82 05/29/16 16:13 78 05/29/16 15:35 98.4 78 18 136/82 98 05/29/16 15:05 78 05/29/16 15:05 Room Air 05/29/16 14:07 78 05/29/16 13:25 76 05/29/16 12:15 98.0 74 18 138/84 96 05/29/16 12:06 80 05/29/16 12:06 Room Air 05/29/16 09:31 98.8 76 18 140/80 05/29/16 09:30 76 05/29/16 05/29/16 05/30/16 15:00 23:00 07:00 Intake Total 850 ml 540 ml Output Total 650 ml 151 ml Balance 200 ml 389 ml Intake Oral 600 ml 240 ml IV Total 150 ml 300 ml Albumin 100 ml Output Urine Total 650 ml 150 ml Stool Total 1 ml # Voids 1 Result Diagram: 05/30/16 0450 05/30/16 0450 Imaging Last Impressions Renal Ultrasound 05/27/16 0000 Signed Impressions: Service Date/Time: Friday, May 27, 2016 14:59 - CONCLUSION: 1. Early/mild chronic medical renal disease suspected. 2. No obstructive uropathy or other acute abnormality seen. 3. Nonvisualization of the urinary bladder, presumably empty. Abimael Nunez MD Chest X-Ray 05/23/16 0002 Signed Impressions: Service Date/Time: April 00:27 - CONCLUSION: 1. Cardiomegaly with no evidence of pulmonary edema. 2. That is post median sternotomy. Shawn Martinez MD Objective Remarks General: NAD, AAOx3 Chest: CTA Cardiac: Irregularly irregular, rate controlled Abd: +BS, soft, obese, ND/NT : Scrotal edema Ext: Bilateral LE pitting edema to the upper thighs A/P Problem List: (1) CHF exacerbation Status: Acute Plan: - Pt with CAD s/p 3v CABG in 2011 and A. fib presented with SOB, worsening LE edema with breakdown of lower ext skin and severe scrotal edema. Pt says he was going to lymphedema clinic for wraps and therapy in past. - Prior to admission his pcp doubled his Lasix last week w/out improvement. - He is noncompliant with CPAP for quite some time. ?Right heart failure - Pt presented with acute systolic CHF exacerbation. - 2D echo (05/23/16) - Estimated EF 45-50%, no regional wall motion abnormalities - Mild to moderate tricuspid regurgitation - PA peak pressure 34mmHg - Pt had been on albumin and Lasix. - Nephrology and Cardiology following. - Lasix was increased to 40mg IV BID on 05/27 - Pt UOP was over 1100mL yesterday. Weight is unchanged. - Creatinine improved slightly today is 1.99 - Cardiology has recommended holding IV Lasix at this time. - Await Lexiscan results - Case discussed between Dr. Rich and Dr. Garcia on 05/28/16, who had previously been following the pt for his SUKUMAR. - Pt was started back on BiPAP at night @16/12 FiO2 30% and adjust as needed to maintain O2 saturations above 92% on 05/28/16 - Recheck labs in AM - Elevate legs and scrotum - Wrap legs - Wound care - PT daily - DVT prophylaxis 05/30/16 - Appears that it will be very difficult to diurese Mr. Moody - Pt echocardigram demonstrated some cardiomyopathy with EF 45-50% - additionally pt likely has some degree of right heart failure in particular d/ t his untreated SUKUMAR - Pt was unable to tolerate trial of Bipap - after discharge I will refer pt back to Dr. Denise, maybe pt could be fitted with a nasal mask with either Bipap or CPAP - Additional pt's condition is confounded by his morbid obesity - On each visit this week, pt is sitting/sleeping in a chair with feet dangling. Pt assures me that he is elevating his feet, but I have NOT seen this. - I would like to see further improvement in pt's kidney function prior to resuming him on lasix which I will likely start at 40mg daily dosing - hesitant to administer IVFs - repeat BMP/Mag in AM - anticipate that I will stop antibiotics 05/31/15 - anticipate discharge in 3-4 days (2) Atrial fibrillation Status: Chronic Plan: - Cont. BB - Pt is currently anticoagulated on Coumadin 3mg po daily - INR 2.3 today - Monitor (3) CAD (coronary artery disease) Status: Chronic Plan: - s/p cabg x 3 2011. - Pt had V tach noted on telemetry - Cardiology following - Pt planned for lexiscan to r/o ischemia (4) HTN (hypertension) Status: Chronic Plan: - Cont home meds - Monitor (5) CKD (chronic kidney disease) stage 3, GFR 30-59 ml/min Status: Chronic Plan: - See above. Problem Qualifiers (1) CHF exacerbation: Qualified Code: I50.9 - Acute on chronic congestive heart failure, unspecified congestive heart failure type Michael Rich DO May 30, 2016 09:38
--- NOTE | 2016-05-30 11:25 | HHI.NPPN ---
Subjective History of Present Illness 80 year old with CHF/Anasarca UTI Additional Remarks Stated urine flow is better Review of Systems General Constitutional: Fatigue Cardiovascular Cardiac: Edema Objective Data Data 05/29/16 05/30/16 19:00 07:00 Intake Total 850 ml 540 ml Output Total 650 ml 151 ml Balance 200 ml 389 ml Intake Oral 600 ml 240 ml IV Total 150 ml 300 ml Albumin 100 ml Output Urine Total 650 ml 150 ml Stool Total 1 ml # Voids 1 Vital Signs Date Time Temp Pulse Resp B/P Pulse Ox O2 Delivery O2 Flow Rate FiO2 05/30/16 09:07 98 21 05/30/16 08:42 18 05/30/16 08:00 98.4 55 16 115/73 95 05/30/16 07:30 95 Room Air 05/30/16 06:31 98.3 66 14 75/59 97 05/30/16 06:00 69 05/30/16 05:00 71 05/30/16 04:00 72 05/30/16 03:56 94 Room Air 05/30/16 03:00 70 05/30/16 02:24 94 Room Air 05/30/16 02:22 98.7 70 14 140/59 97 05/30/16 02:00 72 05/30/16 01:00 75 05/30/16 00:00 82 05/29/16 23:00 89 05/29/16 22:00 84 05/29/16 22:00 97 Room Air 05/29/16 21:00 83 05/29/16 20:00 98.7 70 14 119/72 97 05/29/16 20:00 89 05/29/16 19:00 81 05/29/16 18:11 76 05/29/16 17:43 82 05/29/16 16:13 78 05/29/16 15:35 98.4 78 18 136/82 98 05/29/16 15:05 78 05/29/16 15:05 Room Air 05/29/16 14:07 78 05/29/16 13:25 76 05/29/16 12:15 98.0 74 18 138/84 96 05/29/16 12:06 80 05/29/16 12:06 Room Air -: 05/30/16 0450 05/30/16 0450 Physical Exam General Appearance: Well Developed, Well Nourished Eyes Eye Exam: Pupils Equal Neck Neck Exam: Neck Supple Pulmonary Resp Exam: Decreased Bases Cardiology CV Exam: Irregular Gastrointestinal/Abdomen GI Exam: Soft, Distended Extremeties Extremities Exam: Pitting Edema, Dependent Edema Assessment/Plan Problem List: (1) CKD (chronic kidney disease) stage 3, GFR 30-59 ml/min Plan: his Urine output has Cr 2 dysuria resolved with treating UTI Lasix on hold EF 40-45% UOP only 800 ml he will benefit from diuresis resume if possible scrotal edema (2) CHF exacerbation Plan: He is getting treated with Lasix and cardiology is managing Lasix (3) CAD (coronary artery disease) Plan: Previous coronary artery bypass graft (4) HTN (hypertension) Plan: On ARB follow kidney function (5) UTI (lower urinary tract infection) Plan: Aztreonam and Levaquin Problem Qualifiers (1) CHF exacerbation: Qualified Code: I50.9 - Acute on chronic congestive heart failure, unspecified congestive heart failure type Marianna Mosher MD May 30, 2016 11:25
--- NOTE | 2016-05-30 15:36 | PD.CONS ---
[facility] Service Urology Consult Requested By Reason for Consult Scrotal edema Primary Care Physician Vipul Eid MD Diagnosis: (1) CHF exacerbation ICD Code: I50.9 (2) Atrial fibrillation ICD Code: I48.91 (3) CAD (coronary artery disease) ICD Code: I25.10 (4) HTN (hypertension) ICD Code: I10 (5) CKD (chronic kidney disease) stage 3, GFR 30-59 ml/min ICD Code: N18.3 History of Present Illness 80-year-old gentleman with history congestive heart failure admitted with worsening edema and shortness of breath. A urology consult was placed to evaluate swelling of the scrotum. The patient had already been informed that it appeared to be scrotal edema however the patient was adamant that a urology consultation be obtained while admitted to the hospital. Review of Systems Constitutional: DENIES: Fever, Chills Cardiovascular: DENIES: Chest pain Genitourinary: DENIES: Hematuria, Dysuria Past Family Social History Past Medical History Congestive heart failure Atrial fibrillation Coronary artery disease Chronic kidney disease Obesity History CVA History DVT Past Surgical History Status post CABG Status post umbilical hernia repair Status post left carotid endarterectomy Reported Medications Refer to EMR Allergies: Coded Allergies: Penicillin (Verified Allergy, Severe, ANAPHYLAXIS, 05/22/16) Vasotec (Verified Allergy, Severe, FACIAL EDEMA, 05/22/16) Zithromax (Verified Allergy, Severe, UNKNOWN, 05/22/16) Active Ordered Medications Refer to EMR Family History Reviewed and noncontributory Social History Denies tobacco, alcohol or intravenous drug abuse Physical Exam Vital Signs Vital Signs Date Time Temp Pulse Resp B/P Pulse Ox O2 Delivery O2 Flow Rate FiO2 05/30/16 12:00 97.4 77 18 134/75 97 05/30/16 12:00 78 05/30/16 11:30 97 Room Air 05/30/16 11:00 74 05/30/16 10:00 79 05/30/16 09:07 98 21 05/30/16 08:42 18 05/30/16 08:00 75 05/30/16 08:00 98.4 55 16 115/73 95 05/30/16 07:30 95 Room Air 05/30/16 07:00 75 05/30/16 06:31 98.3 66 14 75/59 97 05/30/16 06:00 69 05/30/16 05:00 71 05/30/16 04:00 72 05/30/16 03:56 94 Room Air 05/30/16 03:00 70 05/30/16 02:24 94 Room Air 05/30/16 02:22 98.7 70 14 140/59 97 05/30/16 02:00 72 05/30/16 01:00 75 05/30/16 00:00 82 05/29/16 23:00 89 05/29/16 22:00 84 05/29/16 22:00 97 Room Air 05/29/16 21:00 83 05/29/16 20:00 98.7 70 14 119/72 97 05/29/16 20:00 89 05/29/16 19:00 81 05/29/16 18:11 76 05/29/16 17:43 82 05/29/16 16:13 78 Physical Exam GENERAL: Elderly male in no apparent distress. SKIN: No rashes, ecchymoses or lesions. Cool and dry. HEAD: Atraumatic. Normocephalic. No temporal or scalp tenderness. EYES: Pupils equal round and reactive. Extraocular motions intact. No scleral icterus. No injection or drainage. ENT: Nose without bleeding or purulent drainage NECK: Trachea midline. No JVD or lymphadenopathy. Supple, nontender, no meningeal signs. GASTROINTESTINAL: Abdomen nontender to palpation. Unable to palpate bladder. : Examination of the genitalia them his routed marketed edema of the penis and scrotum. MUSCULOSKELETAL: Significant Lower extremity edema NEUROLOGICAL: Awake and alert. Cranial nerves II through XII intact. Motor and sensory grossly within normal limits. Normal speech. Laboratory Laboratory Tests Test 05/30/16 04:50 White Blood Count 4.1 Red Blood Count 3.17 Hemoglobin 9.1 Hematocrit 28.4 Mean Corpuscular Volume 89.6 Mean Corpuscular Hemoglobin 28.8 Mean Corpuscular Hemoglobin 32.1 Concent Red Cell Distribution Width 16.2 Platelet Count 218 Mean Platelet Volume 8.3 Neutrophils (%) (Auto) 66.1 Lymphocytes (%) (Auto) 16.9 Monocytes (%) (Auto) 10.5 Eosinophils (%) (Auto) 5.5 Basophils (%) (Auto) 1.0 Neutrophils # (Auto) 2.7 Lymphocytes # (Auto) 0.7 Monocytes # (Auto) 0.4 Eosinophils # (Auto) 0.2 Basophils # (Auto) 0.0 CBC Comment DIFF FINAL Differential Comment Prothrombin Time 22.5 Prothromb Time International 2.0 Ratio Sodium Level 137 Potassium Level 4.4 Chloride Level 100 Carbon Dioxide Level 29.0 Anion Gap 8 Blood Urea Nitrogen 23 Creatinine 2.00 Estimat Glomerular Filtration 39 Rate Random Glucose 90 Calcium Level 8.9 Magnesium Level 2.2 Result Diagram: 05/30/1644905/30/16449 Assessment and Plan Assessment and Plan UROLOGIC IMPRESSION: Scrotal Edema as part of generalized process related to CHF. RECOMMENDATIONS: #1 Scrotal supporter #2 Pt advised to keep his scrotum elevated as much as possible #3 Will be available as needed Problem Qualifiers (1) CHF exacerbation: Qualified Code: I50.9 - Acute on chronic congestive heart failure, unspecified congestive heart failure type Bruce Thomas MD May 30, 2016 15:36
[2016-05-30] MEDS: WARFARIN SOD 3 MG TAB PO SCH (17:15)
[2016-05-30] MEDS: TAMSULOSIN HCL 0.4 MG CAP PO SCH (21:00)
[2016-05-30] MEDS: SENNOSIDES 8.6 MG TAB PO SCH (21:00)
[2016-05-30] MEDS: ATORVASTATIN 20 MG TAB PO SCH (21:01)
[2016-05-31] VITALS (21 sets, daily range): BP systolic 113–144; BP diastolic 51–84; PULSE 61–88; RESP 18–20; TEMP 97.8–98.4; O2SAT 91–97
[2016-05-31 05:27] LABS: AUTOMATED NEUTROPHIL # 2.8 TH/MM3 (1.8-7.7); BASOPHIL # 0.1 TH/MM3 (0-0.2); BASOPHIL % 1.3 % (0.0-2.0); EOSINOPHIL # 0.2 TH/MM3 (0-0.4); EOSINOPHIL % 4.8 % (0.0-4.0); HEMO FLAGS DIFF FINAL; LYMPHOCYTE # 0.7 TH/MM3 (1.0-4.8); MEAN CELL VOLUME 89.7 FL (80.0-100.0); MEAN CORPUSCULAR HEMOGLOBIN 29.5 PG (27.0-34.0); MEAN CORPUSCULAR HGB CONC 32.8 % (32.0-36.0); MONO % 10.1 % (0.0-8.0); NEUT % 67.8 % (16.0-70.0); PLATELET COUNT 227 TH/MM3 (150-450); RED BLOOD COUNT 3.35 MIL/MM3 (4.50-5.90); RED CELL DISTRIBUTION WIDTH 16.3 % (11.6-17.2); WHITE BLOOD COUNT 4.2 TH/MM3 (4.0-11.0)
[2016-05-31 05:50] LABS: BICARBONATE 30.3 MEQ/L (21.0-32.0); MAGNESIUM 2.2 MG/DL (1.5-2.5); POTASSIUM 4.7 MEQ/L (3.5-5.1)
[2016-05-31] MEDS: POTASSIUM CHLORIDE 10 MEQ CONTROLLED RELEASE TAB PO SCH ×2 (08:41→21:24)
[2016-05-31] MEDS: AZTREONAM INJ 1,000 MG in SODIUM CHLORIDE 0.9% INJ 100 ML IV SCH (08:41)
[2016-05-31] MEDS: PANTOPRAZOLE SOD 40 MG DELAYED RELEASE TAB PO SCH (08:41)
[2016-05-31] MEDS: LOSARTAN 50 MG TAB PO SCH (08:42)
[2016-05-31] MEDS: ALLOPURINOL 100 MG TAB PO SCH (08:42)
[2016-05-31] MEDS: METOPROLOL SUCCINATE 50 MG EXTENDED RELEASE TAB PO SCH (08:42)
[2016-05-31] MEDS: SODIUM CHLORIDE 0.9% FLUSH 5 ML FLUSH IVF SCH ×2 (08:43→21:25)
[2016-05-31] MEDS: amLODIPine BESYLATE 5 MG TAB PO SCH (08:43)
--- NOTE | 2016-05-31 11:34 | HHI.NPPN ---
Subjective History of Present Illness 80 year old with CHF/Anasarca UTI Additional Remarks uop low Review of Systems General Constitutional: Fatigue Cardiovascular Cardiac: Edema Objective Data Data 05/30/16 05/31/16 19:00 07:00 Intake Total 340 ml Output Total 250 ml Balance 90 ml Intake Oral 240 ml IV Total 100 ml Output Urine Total 250 ml Stool Total 0 ml Vital Signs Date Time Temp Pulse Resp B/P Pulse Ox O2 Delivery O2 Flow Rate FiO2 05/31/16 10:45 91 21 05/31/16 05:00 74 05/31/16 04:51 97.8 62 20 113/58 96 05/31/16 04:46 96 Room Air 05/31/16 04:00 64 05/31/16 03:00 66 05/31/16 02:00 62 05/31/16 01:51 96 05/31/16 01:00 61 05/31/16 00:57 97.8 77 20 118/79 94 05/31/16 00:55 95 Room Air 05/31/16 00:00 86 05/30/16 23:00 82 05/30/16 22:00 74 05/30/16 21:17 97.9 77 20 135/66 94 05/30/16 21:00 75 05/30/16 20:39 94 Room Air 05/30/16 20:00 76 05/30/16 19:00 71 05/30/16 18:00 69 05/30/16 17:00 72 05/30/16 16:00 68 05/30/16 15:00 65 05/30/16 15:00 97.7 69 18 148/87 98 05/30/16 15:00 98 Room Air 05/30/16 14:00 58 05/30/16 13:00 62 05/30/16 12:00 97.4 77 18 134/75 97 05/30/16 12:00 78 -: 05/31/16 0500 05/31/16 0500 Physical Exam General Appearance: Well Developed, Well Nourished Eyes Eye Exam: Pupils Equal Neck Neck Exam: Neck Supple Pulmonary Resp Exam: Decreased Bases Cardiology CV Exam: Irregular Gastrointestinal/Abdomen GI Exam: Soft, Distended Extremeties Extremities Exam: Pitting Edema, Dependent Edema Assessment/Plan Problem List: (1) CKD (chronic kidney disease) stage 3, GFR 30-59 ml/min Plan: his Urine output has Cr 1,9 dysuria resolved with treating UTI Lasix on hold EF 40-45% UOP only 240ml Lasix 40 mg reorder scrotal edema (2) CHF exacerbation Plan: He is getting treated with Lasix and cardiology is managing Lasix (3) CAD (coronary artery disease) Plan: Previous coronary artery bypass graft (4) HTN (hypertension) Plan: On ARB follow kidney function (5) UTI (lower urinary tract infection) Plan: Aztreonam and Levaquin Problem Qualifiers (1) CHF exacerbation: Qualified Code: I50.9 - Acute on chronic congestive heart failure, unspecified congestive heart failure type Marianna Mosher MD May 31, 2016 11:34
--- NOTE | 2016-05-31 11:46 | HHI.PR ---
Subjective Remarks No new complaints. Objective Vitals Vital Signs Date Time Temp Pulse Resp B/P Pulse Ox O2 Delivery O2 Flow Rate FiO2 05/31/16 10:45 91 21 05/31/16 05:00 74 05/31/16 04:51 97.8 62 20 113/58 96 05/31/16 04:46 96 Room Air 05/31/16 04:00 64 05/31/16 03:00 66 05/31/16 02:00 62 05/31/16 01:51 96 05/31/16 01:00 61 05/31/16 00:57 97.8 77 20 118/79 94 05/31/16 00:55 95 Room Air 05/31/16 00:00 86 05/30/16 23:00 82 05/30/16 22:00 74 05/30/16 21:17 97.9 77 20 135/66 94 05/30/16 21:00 75 05/30/16 20:39 94 Room Air 05/30/16 20:00 76 05/30/16 19:00 71 05/30/16 18:00 69 05/30/16 17:00 72 05/30/16 16:00 68 05/30/16 15:00 65 05/30/16 15:00 97.7 69 18 148/87 98 05/30/16 15:00 98 Room Air 05/30/16 14:00 58 05/30/16 13:00 62 05/30/16 12:00 97.4 77 18 134/75 97 05/30/16 12:00 78 05/30/16 05/30/16 05/31/16 15:00 23:00 07:00 Intake Total 340 ml Output Total 250 ml Balance 90 ml Intake Oral 240 ml IV Total 100 ml Output Urine Total 250 ml Stool Total 0 ml Result Diagram: 05/31/16 0500 05/31/16 0500 Imaging Last Impressions Renal Ultrasound 05/27/16 0000 Signed Impressions: Service Date/Time: Friday, May 27, 2016 14:59 - CONCLUSION: 1. Early/mild chronic medical renal disease suspected. 2. No obstructive uropathy or other acute abnormality seen. 3. Nonvisualization of the urinary bladder, presumably empty. Abimael Nunez MD Chest X-Ray 05/23/16 0002 Signed Impressions: Service Date/Time: April 00:27 - CONCLUSION: 1. Cardiomegaly with no evidence of pulmonary edema. 2. That is post median sternotomy. Shawn Martinez MD Objective Remarks General: NAD, AAOx3 Chest: CTA Cardiac: Irregularly irregular, rate controlled Abd: +BS, soft, obese, ND/NT : Scrotal edema Ext: Bilateral LE pitting edema to the upper thighs A/P Problem List: (1) CHF exacerbation Status: Acute Plan: - Pt with CAD s/p 3v CABG in 2011 and A. fib presented with SOB, worsening LE edema with breakdown of lower ext skin and severe scrotal edema. Pt says he was going to lymphedema clinic for wraps and therapy in past. - Prior to admission his pcp doubled his Lasix last week w/out improvement. - He is noncompliant with CPAP for quite some time. ?Right heart failure - Pt presented with acute systolic CHF exacerbation. - 2D echo (05/23/16) - Estimated EF 45-50%, no regional wall motion abnormalities - Mild to moderate tricuspid regurgitation - PA peak pressure 34mmHg - Pt had been on albumin and Lasix. - Nephrology and Cardiology following. - Lasix was increased to 40mg IV BID on 05/27 - Pt UOP was over 1100mL yesterday. Weight is unchanged. - Creatinine improved slightly today is 1.99 - Case discussed between Dr. Rich and Dr. Garcia on 05/28/16, who had previously been following the pt for his SUKUMAR. - Pt was started back on BiPAP at night @16/12 FiO2 30% and adjust as needed to maintain O2 saturations above 92% on 05/28/16 - Recheck labs in AM - Elevate legs and scrotum - Wrap legs - Wound care - PT daily - DVT prophylaxis 05/31/16 - Appears that it will be very difficult to diurese Mr. Moody - Pt echocardigram demonstrated some cardiomyopathy with EF 45-50% - additionally pt likely has some degree of right heart failure in particular d/ t his untreated SUKUMAR - Pt was unable to tolerate trial of Bipap - after discharge I will refer pt back to Dr. Denise, maybe pt could be fitted with a nasal mask with either Bipap or CPAP - Additional pt's condition is confounded by his morbid obesity - nursing reports that pt is drinking copious amounts of water, I will formerly order fluid restriction to 2 Liters - On each visit this week, pt is sitting/sleeping in a chair with feet dangling. - case d/w Dr. Mosher (05/31/16) - resume lasix 40mg IV daily - request evaluation by Vascular Surgery, Case d/w Dr. Galvan - repeat BMP/Mag in AM - stop antibiotics (2) Atrial fibrillation Status: Chronic Plan: - Cont. BB - Pt is currently anticoagulated on Coumadin 3mg po daily - INR 2.3 today - Monitor (3) CAD (coronary artery disease) Status: Chronic Plan: - s/p cabg x 3 2011. - Pt had V tach noted on telemetry - Cardiology following - Pt planned for lexiscan to r/o ischemia (4) HTN (hypertension) Status: Chronic Plan: - Cont home meds - Monitor (5) CKD (chronic kidney disease) stage 3, GFR 30-59 ml/min Status: Chronic Plan: - See above. Problem Qualifiers (1) CHF exacerbation: Qualified Code: I50.9 - Acute on chronic congestive heart failure, unspecified congestive heart failure type Michael Rich DO May 31, 2016 11:45 Michael Rich DO May 31, 2016 11:45
[2016-05-31] MEDS ORDERED: FUROSEMIDE 40 MG/4 ML VIAL IV PUSH ONE (12:00)
[2016-05-31] MEDS: TAMSULOSIN HCL 0.4 MG CAP PO SCH (21:00)
[2016-05-31] MEDS: ATORVASTATIN 20 MG TAB PO SCH (21:24)
[2016-05-31] MEDS: SENNOSIDES 8.6 MG TAB PO SCH (21:25)
[2016-06-01] VITALS (7 sets, daily range): BP systolic 105–148; BP diastolic 51–67; PULSE 69–87; RESP 16–20; TEMP 97.5–98.3; O2SAT 91–98
[2016-06-01] MEDS: oxyCODONE/ACETAMINOPHEN 7.5 MG/325 MG TAB PO PRN ×2 (00:30→22:06)
[2016-06-01 08:40] LABS: BICARBONATE 29.6 MEQ/L (21.0-32.0); MAGNESIUM 2.1 MG/DL (1.5-2.5); POTASSIUM 4.6 MEQ/L (3.5-5.1)
[2016-06-01] MEDS ORDERED: FUROSEMIDE 40 MG/4 ML VIAL IV PUSH SCH (09:00)
[2016-06-01] MEDS: LOSARTAN 50 MG TAB PO SCH (10:14)
[2016-06-01] MEDS: amLODIPine BESYLATE 5 MG TAB PO SCH (10:14)
[2016-06-01] MEDS: ALLOPURINOL 100 MG TAB PO SCH (10:14)
[2016-06-01] MEDS: POTASSIUM CHLORIDE 10 MEQ CONTROLLED RELEASE TAB PO SCH (10:14)
[2016-06-01] MEDS: METOPROLOL SUCCINATE 50 MG EXTENDED RELEASE TAB PO SCH (10:14)
[2016-06-01] MEDS: PANTOPRAZOLE SOD 40 MG DELAYED RELEASE TAB PO SCH (10:14)
[2016-06-01] MEDS: SODIUM CHLORIDE 0.9% FLUSH 5 ML FLUSH IVF SCH ×2 (10:15→20:50)
--- NOTE | 2016-06-01 11:06 | PD.CAR.PN ---
CVT Progress Note Subjective/Hospital Course: Patient seen full consult dictated Thanks J Objective: Vital Signs Date Time Temp Pulse Resp B/P Pulse Ox O2 Delivery O2 Flow Rate FiO2 06/01/16 09:25 92 21 06/01/16 08:00 Room Air 06/01/16 08:00 98.1 78 20 113/53 92 06/01/16 04:00 98.3 71 18 133/60 95 06/01/16 02:50 Room Air 06/01/16 00:00 97.7 72 20 148/65 97 05/31/16 20:20 Room Air 05/31/16 20:00 98.4 62 18 122/69 97 05/31/16 20:00 97 Room Air 05/31/16 18:00 79 05/31/16 17:00 77 05/31/16 16:00 70 05/31/16 15:00 98.0 72 20 118/51 95 05/31/16 15:00 76 05/31/16 15:00 95 Room Air 05/31/16 12:00 88 Labs: Laboratory Tests Test 06/01/16 07:45 Sodium Level 139 MEQ/L (136-145) Potassium Level 4.6 MEQ/L (3.5-5.1) Chloride Level 103 MEQ/L (98-107) Carbon Dioxide Level 29.6 MEQ/L (21.0-32.0) Anion Gap 6 MEQ/L (5-15) Blood Urea Nitrogen 26 MG/DL (7-18) Creatinine 1.95 MG/DL (0.60-1.30) Estimat Glomerular Filtration 40 ML/MIN (>89) Rate Random Glucose 79 MG/DL (74-106) Calcium Level 9.0 MG/DL (8.5-10.1) Magnesium Level 2.1 MG/DL (1.5-2.5) Result Diagram: 05/31/16 0500 06/01/16 0745 Rocco Galvan MD Jun 01, 2016 11:06
--- NOTE | 2016-06-01 12:23 | HHI.NPPN ---
Subjective History of Present Illness 80 year old with CHF/Anasarca UTI Interval History continues to have significant amount of edema. Scrotal edema. He thinks response to diuretics is low. Review of Systems General Constitutional: Fatigue Cardiovascular Cardiac: Edema Objective Data Data 05/31/16 06/01/16 19:00 07:00 Intake Total 580 ml 362 ml Output Total 525 ml Balance 55 ml 362 ml Intake Oral 480 ml 360 ml IV Total 100 ml 2 ml Output Urine Total 525 ml # Voids 0 Vital Signs Date Time Temp Pulse Resp B/P Pulse Ox O2 Delivery O2 Flow Rate FiO2 06/01/16 09:25 92 21 06/01/16 08:00 Room Air 06/01/16 08:00 98.1 78 20 113/53 92 06/01/16 04:00 98.3 71 18 133/60 95 06/01/16 02:50 Room Air 06/01/16 00:00 97.7 72 20 148/65 97 05/31/16 20:20 Room Air 05/31/16 20:00 98.4 62 18 122/69 97 05/31/16 20:00 97 Room Air 05/31/16 18:00 79 05/31/16 17:00 77 05/31/16 16:00 70 05/31/16 15:00 98.0 72 20 118/51 95 05/31/16 15:00 76 05/31/16 15:00 95 Room Air -: 05/31/16 0500 06/01/16 0745 Physical Exam General Appearance: Well Developed, Well Nourished Eyes Eye Exam: Pupils Equal Neck Neck Exam: Neck Supple Pulmonary Resp Exam: Decreased Bases Cardiology CV Exam: Irregular Gastrointestinal/Abdomen GI Exam: Soft, Distended Extremeties Extremities Exam: Pitting Edema, Dependent Edema Assessment/Plan Problem List: (1) CKD (chronic kidney disease) stage 3, GFR 30-59 ml/min Plan: renal function is stable. Inadequate dialysis. I will change diuretic to Bumex 2 mg IV Q12. Add Spironolactone. Stop potassium supplements for the time being. Monitor urine output and renal function. (2) CHF exacerbation Plan: continue diuretics. Cardiology following. (3) CAD (coronary artery disease) Plan: Previous coronary artery bypass graft (4) HTN (hypertension) Plan: On ARB follow kidney function Problem Qualifiers (1) CHF exacerbation: Qualified Code: I50.9 - Acute on chronic congestive heart failure, unspecified congestive heart failure type Donny Vidal MD Jun 01, 2016 12:23
--- NOTE | 2016-06-01 12:40 | HHI.PR ---
Subjective Remarks No new complaints. No improvement in his edema. Objective Vitals Vital Signs Date Time Temp Pulse Resp B/P Pulse Ox O2 Delivery O2 Flow Rate FiO2 06/01/16 09:25 92 21 06/01/16 08:00 Room Air 06/01/16 08:00 98.1 78 20 113/53 92 06/01/16 04:00 98.3 71 18 133/60 95 06/01/16 02:50 Room Air 06/01/16 00:00 97.7 72 20 148/65 97 05/31/16 20:20 Room Air 05/31/16 20:00 98.4 62 18 122/69 97 05/31/16 20:00 97 Room Air 05/31/16 18:00 79 05/31/16 17:00 77 05/31/16 16:00 70 05/31/16 15:00 98.0 72 20 118/51 95 05/31/16 15:00 76 05/31/16 15:00 95 Room Air 05/31/16 05/31/16 06/01/16 15:00 23:00 07:00 Intake Total 580 ml 362 ml Output Total 525 ml Balance 55 ml 362 ml Intake Oral 480 ml 360 ml IV Total 100 ml 2 ml Output Urine Total 525 ml # Voids 0 Result Diagram: 05/31/16 0500 06/01/16 0745 Imaging Last Impressions Renal Ultrasound 05/27/16 0000 Signed Impressions: Service Date/Time: Friday, May 27, 2016 14:59 - CONCLUSION: 1. Early/mild chronic medical renal disease suspected. 2. No obstructive uropathy or other acute abnormality seen. 3. Nonvisualization of the urinary bladder, presumably empty. Abimael Nunez MD Chest X-Ray 05/23/16 0002 Signed Impressions: Service Date/Time: April 00:27 - CONCLUSION: 1. Cardiomegaly with no evidence of pulmonary edema. 2. That is post median sternotomy. Shawn Martinez MD Objective Remarks General: NAD, AAOx3 Chest: CTA Cardiac: Irregularly irregular, rate controlled Abd: +BS, soft, obese, ND/NT : Scrotal edema Ext: Bilateral LE pitting edema to the upper thighs A/P Problem List: (1) CHF exacerbation Status: Acute Plan: - comgmt with Nephrology and Cardiology - Pt with CAD s/p 3v CABG in 2012 and A. fib presented with SOB, worsening LE edema with breakdown of lower ext skin and severe scrotal edema. Pt says he was going to lymphedema clinic for wraps and therapy in past. - Prior to admission his pcp doubled his Lasix last week w/out improvement. - He is noncompliant with CPAP for quite some time. ?Right heart failure - Pt presented with acute systolic CHF exacerbation. - 2D echo (05/23/16) - Estimated EF 45-50%, no regional wall motion abnormalities - Mild to moderate tricuspid regurgitation - PA peak pressure 34mmHg - Case discussed between Dr. Rich and Dr. Garcia on 05/28/16, who had previously been following the pt for his SUKUMAR. - tried to started back on BiPAP at night @16/12 FiO2 30% but pt was unable to tolerate this. - case d/w Dr. Vidal (06/01/16) - therapy changed to bumex 2mg IV BID with aldactone - pt needs diuresis, but previous high doses on lasix lead to worsening of pt's renal functions - if renal function is driven up on bumex, then Dr. Vidal may consider HD - repeat BMP, Mag, Phos (2) Atrial fibrillation Status: Chronic Plan: - Cont. BB - Pt is currently anticoagulated on Coumadin 3mg po daily - repeat INR in AM (3) CAD (coronary artery disease) Status: Chronic Plan: - s/p cabg x 3 2011. - Pt had V tach noted on telemetry - Cardiology following - Pt planned for lexiscan to r/o ischemia (4) HTN (hypertension) Status: Chronic Plan: - Cont home meds - Monitor (5) CKD (chronic kidney disease) stage 3, GFR 30-59 ml/min Status: Chronic Plan: - See above. Problem Qualifiers (1) CHF exacerbation: Qualified Code: I50.9 - Acute on chronic congestive heart failure, unspecified congestive heart failure type Michael Rich DO Jun 01, 2016 12:40
[2016-06-01] MEDS: SPIRONOLACTONE 25 MG TAB PO SCH (12:49)
--- NOTE | 2016-06-01 14:37 | MB ---
cc: ROCCO MCDONALD MD DATE OF CONSULTATION: 05/31/2016. REASON FOR CONSULTATION: Bilateral leg edema. Ischemia of the toes. Morbid obesity. Congestive heart failure. HISTORY OF PRESENT ILLNESS: This 80-year-old obese male presented to the hospital with massive swelling on the lower extremities, breakdown of the skin of the right leg and generalized anasarca. The patient is now in the process of workup. The question arises as to any vascular implications. This gentleman states that he has had leg swelling now for about several years and is unable to wear any shoes. He is going to the lymphedema clinic and is using wraps for this but this got much worse including scrotal edema; hence, the presentation. PAST MEDICAL HISTORY: His past medical history is quite complex. 1. The patient has morbid obesity. 2. Coronary artery disease with ejection fraction of about 45%. 3. Coronary artery bypass grafting in 2011 and now fixed inferolateral defect on perfusion scan consistent with previous myocardial infarction. 4. Congestive heart failure. 5. Chronic renal insufficiency. 6. 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 7. Sleep apnea but he refuses C-PAP. 8. 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 9. The patient is also noncompliant with medical therapy according to family and doctors. SOCIAL HISTORY: The patient does not smoke or drink. ALLERGIES: PENICILLIN. MEDICATIONS: Medications can be found on the record. REVIEW OF SYSTEMS: The patient is now awake and alert. He is a very pleasant gentleman. He is sitting in a chair with elevated legs and wrapped right leg below the knee. PHYSICAL EXAMINATION: GENERAL: The physical examination reveals a pleasant and morbidly obese 80-year-old gentleman. HEAD, EYES, EARS, NOSE, THROAT: Normocephalic. No trauma to the head. Pupils equal and reactive. Extraocular muscles intact. NECK: The neck is very short and stocky. Previous scar on the left side from carotid surgery. No bruits. CHEST: Bilateral breath sounds decreased over both lung plummer and this is consistent with the fact that the patient is morbidly obese and it is hard to listen. HEART: He is in irregular rhythm. He seems to be going in and out of atrial fibrillation or it is sinus arrhythmia. ABDOMEN: His abdomen is obese, soft, active bowel sounds. No rebound. No guarding. No masses. EXTREMITIES: Femoral pulses, popliteal, dorsalis pedis and posterior tibial pulses are not palpable. The patient has Dopplerable dorsalis pedis and posterior tibial pulses bilaterally, which are actually fairly strong. He has bilateral popliteal pulses. Groin pulses I cannot detect due to the patient's morbid obesity. He is a massive swelling of both legs which is apparently now down. This has lead to the breakdown of the superficial layers of the skin of the right lower leg. The superficial layers are sloughing off appearing as if there was a second-degree burn. This is nice and clean. No infection is noted. The toes appear to be somewhat livid, but certainly not acutely ischemic. IMPRESSION AND RECOMMENDATIONS: This gentleman has multiple problems. He had deep venous thrombosis bilaterally in the past, and is chronically on Coumadin. This has caused destruction of the valves in his deep venous and hence, the chronic venous stasis and chronic venous insufficiency with a chronic edema. 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 There is no acute arterial insufficiency. The patient has multiple medical problems including the above-noted and underlying chronic renal insufficiency. CT angiogram with runoff would not be helpful because the patient is not a candidate for any vascular major reconstruction and he does not have any limb-threatening ischemia at this time. Elevation of the legs, skin wraps and adherence to a low-salt diet and fluid restriction is mandatory. I thank you much for the referral. Rocco KOCH/ADRIANA /11:15 AM /2:20 PM
[2016-06-01] MEDS: BUMETANIDE INJ 1 MG/4 ML VIAL IV PUSH SCH (16:37)
[2016-06-01] MEDS: WARFARIN SOD 3 MG TAB PO SCH ×2 (16:38→16:43)
[2016-06-01] MEDS: ATORVASTATIN 20 MG TAB PO SCH (20:49)
[2016-06-01] MEDS: SENNOSIDES 8.6 MG TAB PO SCH (20:49)
[2016-06-01] MEDS: TAMSULOSIN HCL 0.4 MG CAP PO SCH (20:49)
[2016-06-02 04:14] VITALS: BP 120/60; PULSE 80; RESP 18; TEMP 97.8; O2SAT 95
[2016-06-02 08:00] VITALS: BP 116/66; PULSE 73; RESP 20; TEMP 98.1; O2SAT 96
[2016-06-02 08:53] LABS: INTERNATIONAL NORMALIZED RATIO 1.9 RATIO; PROTHROMBIN TIME - PATIENT 21.3 SEC (9.8-11.6)
[2016-06-02 09:18] LABS: BICARBONATE 28.9 MEQ/L (21.0-32.0); MAGNESIUM 2.1 MG/DL (1.5-2.5); POTASSIUM 4.1 MEQ/L (3.5-5.1)
[2016-06-02] MEDS: SODIUM CHLORIDE 0.9% FLUSH 5 ML FLUSH IVF SCH ×2 (09:56→20:04)
[2016-06-02] MEDS: BUMETANIDE INJ 1 MG/4 ML VIAL IV PUSH SCH ×2 (09:57→16:26)
[2016-06-02] MEDS: PANTOPRAZOLE SOD 40 MG DELAYED RELEASE TAB PO SCH (09:57)
[2016-06-02] MEDS: ALLOPURINOL 100 MG TAB PO SCH (09:57)
[2016-06-02] MEDS: amLODIPine BESYLATE 5 MG TAB PO SCH (09:57)
[2016-06-02] MEDS: LOSARTAN 50 MG TAB PO SCH (09:57)
[2016-06-02] MEDS: METOPROLOL SUCCINATE 50 MG EXTENDED RELEASE TAB PO SCH (09:57)
[2016-06-02] MEDS: SPIRONOLACTONE 25 MG TAB PO SCH (09:57)
--- NOTE | 2016-06-02 11:19 | HHI.NPPN ---
Subjective History of Present Illness 80 year old with CHF/Anasarca UTI Interval History His urine output has improved with change in diuretic regimen. Edema has improved slightly. Review of Systems General Constitutional: Fatigue Cardiovascular Cardiac: Edema Objective Data Data 06/01/16 06/02/16 19:00 07:00 Intake Total 360 ml Output Total 850 ml Balance -490 ml Intake Oral 360 ml Output Urine Total 850 ml Vital Signs Date Time Temp Pulse Resp B/P Pulse Ox O2 Delivery O2 Flow Rate FiO2 06/02/16 08:00 98.1 73 20 116/66 96 06/02/16 07:33 Room Air 06/02/16 04:14 97.8 80 18 120/60 95 06/02/16 03:49 Room Air 06/01/16 23:53 Room Air 06/01/16 23:50 98.3 73 16 109/67 98 06/01/16 22:40 20 06/01/16 20:00 Room Air 06/01/16 20:00 98.1 69 18 106/58 98 06/01/16 12:00 Room Air 06/01/16 12:00 97.5 87 20 105/51 91 -: 05/31/16 0500 06/02/16 0739 Physical Exam General Appearance: Well Developed, Well Nourished Eyes Eye Exam: Pupils Equal Neck Neck Exam: Neck Supple Pulmonary Resp Exam: Decreased Bases Cardiology CV Exam: Irregular Gastrointestinal/Abdomen GI Exam: Soft, Distended Extremeties Extremities Exam: Pitting Edema, Dependent Edema Assessment/Plan Problem List: (1) CKD (chronic kidney disease) stage 3, GFR 30-59 ml/min Plan: There is some worsening in GFR as expected with more aggressive diuresis. . Continue Bumex as ordered. Add Spironolactone. Stop potassium supplements for the time being. Monitor urine output and renal function. (2) CHF exacerbation Plan: continue diuretics. Cardiology following. (3) CAD (coronary artery disease) Plan: Previous coronary artery bypass graft (4) HTN (hypertension) Plan: On ARB. We will have to closely monitor potassium and renal function due to combination of spironolactone and Losartan. Spironolactone should be stopped once edema improves. Problem Qualifiers (1) CHF exacerbation: Qualified Code: I50.9 - Acute on chronic congestive heart failure, unspecified congestive heart failure type Donny Vidal MD Jun 02, 2016 11:19
[2016-06-02 12:00] VITALS: BP 119/70; PULSE 66; RESP 20; TEMP 98.2; O2SAT 94
--- NOTE | 2016-06-02 15:38 | HHI.PR ---
Subjective Remarks No new complaints. Objective Vitals Vital Signs Date Time Temp Pulse Resp B/P Pulse Ox O2 Delivery O2 Flow Rate FiO2 06/02/16 12:00 98.2 66 20 119/70 94 06/02/16 08:00 98.1 73 20 116/66 96 06/02/16 07:33 Room Air 06/02/16 04:14 97.8 80 18 120/60 95 06/02/16 03:49 Room Air 06/01/16 23:53 Room Air 06/01/16 23:50 98.3 73 16 109/67 98 06/01/16 22:40 20 06/01/16 20:00 Room Air 06/01/16 20:00 98.1 69 18 106/58 98 06/01/16 06/01/16 06/02/16 15:00 23:00 07:00 Intake Total 240 ml 120 ml Output Total 275 ml 575 ml Balance -35 ml -455 ml Intake Oral 240 ml 120 ml Output Urine Total 275 ml 575 ml Result Diagram: 05/31/16 0500 06/02/16 0739 Imaging Last Impressions Renal Ultrasound 05/27/16 0000 Signed Impressions: Service Date/Time: Friday, May 27, 2016 14:59 - CONCLUSION: 1. Early/mild chronic medical renal disease suspected. 2. No obstructive uropathy or other acute abnormality seen. 3. Nonvisualization of the urinary bladder, presumably empty. Abimael Nunez MD Chest X-Ray 05/23/16 0002 Signed Impressions: Service Date/Time: April 00:27 - CONCLUSION: 1. Cardiomegaly with no evidence of pulmonary edema. 2. That is post median sternotomy. Shawn Martinez MD Objective Remarks General: NAD, AAOx3 Chest: CTA Cardiac: Irregularly irregular, rate controlled Abd: +BS, soft, obese, ND/NT : Scrotal edema Ext: Bilateral LE pitting edema to the upper thighs A/P Problem List: (1) CHF exacerbation Status: Acute Plan: - comgmt with Nephrology and Cardiology - Pt with CAD s/p 3v CABG in 2012 and A. fib presented with SOB, worsening LE edema with breakdown of lower ext skin and severe scrotal edema. Pt says he was going to lymphedema clinic for wraps and therapy in past. - Prior to admission his pcp doubled his Lasix last week w/out improvement. - He is noncompliant with CPAP for quite some time. ?Right heart failure - Pt presented with acute systolic CHF exacerbation. - 2D echo (05/23/16) - Estimated EF 45-50%, no regional wall motion abnormalities - Mild to moderate tricuspid regurgitation - PA peak pressure 34mmHg - Case discussed between Dr. Rich and Dr. Garcia on 05/28/16, who had previously been following the pt for his SUKUMAR. - tried to started back on BiPAP at night @16 FiO2 30% but pt was unable to tolerate this. - case d/w Dr. Vidal (06/01/16) - therapy changed to bumex 2mg IV BID with aldactone - pt needs diuresis, but previous high doses on lasix lead to worsening of pt's renal functions - if renal function is driven up on bumex, then Dr. Vidal may consider HD - Cr 2.04 (06/02/16) 06/02/16 - pt interviewed and examined - continue current treatment plan as outlined above (2) Atrial fibrillation Status: Chronic Plan: - Cont. BB - Pt is currently anticoagulated on Coumadin 3mg po daily - repeat INR in AM (3) CAD (coronary artery disease) Status: Chronic Plan: - s/p cabg x 3 2011. - Pt had V tach noted on telemetry - Cardiology following - Pt planned for lexiscan to r/o ischemia (4) HTN (hypertension) Status: Chronic Plan: - Cont home meds - Monitor (5) CKD (chronic kidney disease) stage 3, GFR 30-59 ml/min Status: Chronic Plan: - See above. Problem Qualifiers (1) CHF exacerbation: Qualified Code: I50.9 - Acute on chronic congestive heart failure, unspecified congestive heart failure type Michael Rich DO Jun 02, 2016 15:38
[2016-06-02 16:00] VITALS: BP 103/55; PULSE 70; RESP 20; TEMP 98.2; O2SAT 98
[2016-06-02] MEDS: WARFARIN SOD 3 MG TAB PO SCH (16:26)
[2016-06-02 20:00] VITALS: BP 109/64; PULSE 81; RESP 18; TEMP 98.9; O2SAT 97
[2016-06-02] MEDS: TAMSULOSIN HCL 0.4 MG CAP PO SCH (20:04)
[2016-06-02] MEDS: SENNOSIDES 8.6 MG TAB PO SCH (20:04)
[2016-06-02] MEDS: ATORVASTATIN 20 MG TAB PO SCH (20:04)
[2016-06-02] MEDS: oxyCODONE/ACETAMINOPHEN 7.5 MG/325 MG TAB PO PRN (22:46)
[2016-06-03 00:20] VITALS: BP 118/61; PULSE 72; RESP 20; TEMP 98.1; O2SAT 96
[2016-06-03 04:00] VITALS: BP 120/72; PULSE 84; RESP 18; TEMP 98.4; O2SAT 95
[2016-06-03 06:28] LABS: BICARBONATE 28.3 MEQ/L (21.0-32.0); POTASSIUM 3.9 MEQ/L (3.5-5.1)
[2016-06-03 08:00] VITALS: BP 119/60; PULSE 80; RESP 20; TEMP 97.9; O2SAT 95
[2016-06-03] MEDS: PANTOPRAZOLE SOD 40 MG DELAYED RELEASE TAB PO SCH (09:55)
[2016-06-03] MEDS: BUMETANIDE INJ 1 MG/4 ML VIAL IV PUSH SCH ×2 (09:55→17:18)
[2016-06-03] MEDS: LOSARTAN 50 MG TAB PO SCH (09:56)
[2016-06-03] MEDS: amLODIPine BESYLATE 5 MG TAB PO SCH (09:56)
[2016-06-03] MEDS: ALLOPURINOL 100 MG TAB PO SCH (09:56)
[2016-06-03] MEDS: METOPROLOL SUCCINATE 50 MG EXTENDED RELEASE TAB PO SCH (09:56)
[2016-06-03] MEDS: SPIRONOLACTONE 25 MG TAB PO SCH (09:56)
[2016-06-03] MEDS: SODIUM CHLORIDE 0.9% FLUSH 5 ML FLUSH IVF SCH ×2 (09:57→21:39)
--- NOTE | 2016-06-03 10:13 | HHI.NPPN ---
Subjective History of Present Illness 80 year old with CHF/Anasarca UTI Interval History His urine output has improved. Edema persists,but is better. Review of Systems General Constitutional: Fatigue Cardiovascular Cardiac: Edema Objective Data Data 06/02/16 06/03/16 19:00 07:00 Intake Total 492 ml 100 ml Output Total 1025 ml 675 ml Balance -533 ml -575 ml Intake Oral 480 ml 100 ml IV Total 12 ml 0 ml Output Urine Total 1025 ml 675 ml # Bowel Movements 0 Vital Signs Date Time Temp Pulse Resp B/P Pulse Ox O2 Delivery O2 Flow Rate FiO2 06/03/16 04:00 98.4 84 18 120/72 95 06/03/16 03:00 Room Air 06/03/16 00:20 98.1 72 20 118/61 96 06/02/16 23:27 20 06/02/16 23:00 Room Air 06/02/16 20:00 Room Air 06/02/16 20:00 98.9 81 18 109/64 97 06/02/16 16:00 98.2 70 20 103/55 98 06/02/16 12:00 98.2 66 20 119/70 94 -: 05/31/16 0500 06/03/16 0540 Physical Exam General Appearance: Well Developed, Well Nourished Eyes Eye Exam: Pupils Equal Neck Neck Exam: Neck Supple Pulmonary Resp Exam: Decreased Bases Cardiology CV Exam: Irregular Gastrointestinal/Abdomen GI Exam: Soft, Distended Extremeties Extremities Exam: Pitting Edema, Dependent Edema Assessment/Plan Problem List: (1) CKD (chronic kidney disease) stage 3, GFR 30-59 ml/min Plan: Stable renal function. . Continue Bumex as ordered. Continue Aldactone. Monitor urine output and renal function. (2) CHF exacerbation Plan: continue diuretics. Cardiology following. (3) CAD (coronary artery disease) Plan: Previous coronary artery bypass graft (4) HTN (hypertension) Plan: On ARB. We will have to closely monitor potassium and renal function due to combination of spironolactone and Losartan. Spironolactone should be stopped once edema improves. Problem Qualifiers (1) CHF exacerbation: Qualified Code: I50.9 - Acute on chronic congestive heart failure, unspecified congestive heart failure type Donny Vidal MD Jun 03, 2016 10:13
--- NOTE | 2016-06-03 11:13 | HHI.PR ---
Subjective Remarks no new complaints Objective Vitals heart reg lung cta abd s/nt ext anasarca and scrotal edema skin sloughing/denuded stable. no purelent drainage. Vital Signs Date Time Temp Pulse Resp B/P Pulse Ox O2 Delivery O2 Flow Rate FiO2 06/03/16 09:55 Room Air 06/03/16 08:00 97.9 80 20 119/60 95 06/03/16 04:00 98.4 84 18 120/72 95 06/03/16 03:00 Room Air 06/03/16 00:20 98.1 72 20 118/61 96 06/02/16 23:27 20 06/02/16 23:00 Room Air 06/02/16 20:00 Room Air 06/02/16 20:00 98.9 81 18 109/64 97 06/02/16 16:00 98.2 70 20 103/55 98 06/02/16 12:00 98.2 66 20 119/70 94 06/02/16 06/02/16 06/03/16 15:00 23:00 07:00 Intake Total 492 ml 100 ml Output Total 1025 ml 350 ml 325 ml Balance -533 ml -350 ml -225 ml Intake Oral 480 ml 100 ml IV Total 12 ml 0 ml Output Urine Total 1025 ml 350 ml 325 ml # Bowel Movements 0 Result Diagram: 05/31/16 0500 06/03/16 0540 Imaging Last Impressions Renal Ultrasound 05/27/16 0000 Signed Impressions: Service Date/Time: Friday, May 27, 2016 14:59 - CONCLUSION: 1. Early/mild chronic medical renal disease suspected. 2. No obstructive uropathy or other acute abnormality seen. 3. Nonvisualization of the urinary bladder, presumably empty. Abimael Nunez MD Chest X-Ray 05/23/16 0002 Signed Impressions: Service Date/Time: April 00:27 - CONCLUSION: 1. Cardiomegaly with no evidence of pulmonary edema. 2. That is post median sternotomy. Shawn Martinez MD A/P Problem List: (1) CHF exacerbation Status: Acute Plan: - comgmt with Nephrology and Cardiology - Pt with CAD s/p 3v CABG in 2011 and A. fib presented with SOB, worsening LE edema with breakdown of lower ext skin and severe scrotal edema. Pt says he was going to lymphedema clinic for wraps and therapy in past. - Prior to admission his pcp doubled his Lasix last week w/out improvement. - He is noncompliant with CPAP for quite some time. ?Right heart failure - Pt presented with acute systolic CHF exacerbation -also seems to have venous insufficiency - 2D echo (05/23/16) - Estimated EF 45-50%, no regional wall motion abnormalities - Mild to moderate tricuspid regurgitation - PA peak pressure 34mmHg - Case discussed between Dr. Rich and Dr. Garcia on 05/28/16, who had previously been following the pt for his SUKUMAR. - tried to started back on BiPAP at night @16/ FiO2 30% but pt was unable to tolerate this. - therapy changed to bumex 2mg IV BID with aldactone -continue diuresis and dressing changes to lower ext's -PT. (2) Atrial fibrillation Status: Chronic Plan: - Cont. BB - Pt is currently anticoagulated on Coumadin 3mg po daily (3) CAD (coronary artery disease) Status: Chronic Plan: - s/p cabg x 3 2011. - Pt had V tach noted on telemetry - Cardiology following -tenzin neg for ischemia (4) HTN (hypertension) Status: Chronic Plan: - Cont home meds - Monitor (5) CKD (chronic kidney disease) stage 3, GFR 30-59 ml/min Status: Chronic Plan: - See above. Problem Qualifiers (1) CHF exacerbation: Qualified Code: I50.9 - Acute on chronic congestive heart failure, unspecified congestive heart failure type Alfonso Asif MD Jun 03, 2016 11:13
[2016-06-03 12:00] VITALS: BP 109/77; PULSE 79; RESP 20; TEMP 98; O2SAT 94
[2016-06-03 16:00] VITALS: BP 114/57; PULSE 71; RESP 20; TEMP 98.1; O2SAT 96
[2016-06-03] MEDS: WARFARIN SOD 3 MG TAB PO SCH (17:18)
[2016-06-03 20:00] VITALS: BP 117/55; PULSE 73; RESP 18; TEMP 98.6; O2SAT 98
[2016-06-03] MEDS: SENNOSIDES 8.6 MG TAB PO SCH (21:00)
[2016-06-03] MEDS: ATORVASTATIN 20 MG TAB PO SCH (21:39)
[2016-06-03] MEDS: TAMSULOSIN HCL 0.4 MG CAP PO SCH (21:39)
[2016-06-03] MEDS: oxyCODONE/ACETAMINOPHEN 7.5 MG/325 MG TAB PO PRN (23:36)
[2016-06-04] VITALS: BP 128/58; PULSE 64; RESP 18; TEMP 98.1; O2SAT 97
[2016-06-04 04:00] VITALS: BP 110/54; PULSE 64; RESP 18; TEMP 98.3; O2SAT 98
[2016-06-04 07:46] LABS: INTERNATIONAL NORMALIZED RATIO 2.3 RATIO; PROTHROMBIN TIME - PATIENT 26.3 SEC (9.8-11.6)
[2016-06-04 08:00] VITALS: BP 104/51; PULSE 67; RESP 16; TEMP 98.4; O2SAT 95
[2016-06-04 08:01] LABS: BICARBONATE 29.9 MEQ/L (21.0-32.0); POTASSIUM 3.6 MEQ/L (3.5-5.1)
[2016-06-04] MEDS: LOSARTAN 50 MG TAB PO SCH ×2 (09:00→21:55)
[2016-06-04] MEDS: SODIUM CHLORIDE 0.9% FLUSH 5 ML FLUSH IVF SCH ×2 (09:00→21:55)
[2016-06-04] MEDS: BUMETANIDE INJ 1 MG/4 ML VIAL IV PUSH SCH ×2 (09:11→17:22)
[2016-06-04] MEDS: METOPROLOL SUCCINATE 50 MG EXTENDED RELEASE TAB PO SCH (09:11)
[2016-06-04] MEDS: ALLOPURINOL 100 MG TAB PO SCH (09:11)
[2016-06-04] MEDS: SPIRONOLACTONE 25 MG TAB PO SCH (09:11)
[2016-06-04] MEDS: amLODIPine BESYLATE 5 MG TAB PO SCH (09:11)
[2016-06-04] MEDS: PANTOPRAZOLE SOD 40 MG DELAYED RELEASE TAB PO SCH (09:11)
--- NOTE | 2016-06-04 11:22 | HHI.NPPN ---
Subjective History of Present Illness 80 year old with CHF/Anasarca UTI Interval History patient is non oliguric, his urine output is slightly worse. Long discussion with the patient and his . Lower extremity edema is not new, however it has worsened, and he has developed scrotal swelling which is new. Review of Systems General Constitutional: Fatigue Cardiovascular Cardiac: Edema Objective Data Data 06/03/16 06/04/16 19:00 07:00 Intake Total 120 ml Output Total 450 ml Balance -330 ml Intake Oral 120 ml Output Urine Total 450 ml # Bowel Movements 0 Vital Signs Date Time Temp Pulse Resp B/P Pulse Ox O2 Delivery O2 Flow Rate FiO2 06/04/16 08:00 98.4 67 16 104/51 95 06/04/16 04:00 Room Air 06/04/16 04:00 98.3 64 18 110/54 98 06/04/16 00:00 Room Air 06/04/16 00:00 98.1 64 18 128/58 97 06/03/16 20:00 98.6 73 18 117/55 98 06/03/16 20:00 Room Air 06/03/16 16:00 98.1 71 20 114/57 96 06/03/16 12:00 98.0 79 20 109/77 94 -: 05/31/16 0500 06/04/16 0634 Physical Exam General Appearance: Well Developed, Well Nourished Eyes Eye Exam: Pupils Equal Neck Neck Exam: Neck Supple Pulmonary Resp Exam: Decreased Bases Cardiology CV Exam: Irregular Gastrointestinal/Abdomen GI Exam: Soft, Distended Extremeties Extremities Exam: Pitting Edema, Dependent Edema Assessment/Plan Problem List: (1) CKD (chronic kidney disease) stage 3, GFR 30-59 ml/min Plan: Renal function is slightly worse. Continue Bumex as ordered. Continue Aldactone. Monitor urine output and renal function. Discussed importance of salt restriction. Discussed possibility of dialysis in the future if renal function worsens in the setting of fluid overload. There is no current indication for renal replacement therapy. Daily weights. Monitor I/O (2) CHF exacerbation Plan: continue diuretics. Cardiology following. (3) CAD (coronary artery disease) Plan: Previous coronary artery bypass graft (4) HTN (hypertension) Plan: On ARB. We will have to closely monitor potassium and renal function due to combination of spironolactone and Losartan. Spironolactone should be stopped once edema improves. Problem Qualifiers (1) CHF exacerbation: Qualified Code: I50.9 - Acute on chronic congestive heart failure, unspecified congestive heart failure type Donny Vidal MD Jun 04, 2016 11:22
[2016-06-04 12:00] VITALS: BP 127/58; PULSE 66; RESP 16; TEMP 98; O2SAT 96
--- NOTE | 2016-06-04 12:26 | HHI.PR ---
Subjective Remarks no new complaints. Objective Vitals heart reg lung cta abd s/nte ext anasarca. scrotal edema same Vital Signs Date Time Temp Pulse Resp B/P Pulse Ox O2 Delivery O2 Flow Rate FiO2 06/04/16 08:00 98.4 67 16 104/51 95 06/04/16 04:00 Room Air 06/04/16 04:00 98.3 64 18 110/54 98 06/04/16 00:00 Room Air 06/04/16 00:00 98.1 64 18 128/58 97 06/03/16 20:00 98.6 73 18 117/55 98 06/03/16 20:00 Room Air 06/03/16 16:00 98.1 71 20 114/57 96 06/03/16 06/03/16 06/04/16 15:00 23:00 07:00 Intake Total 120 ml 0 ml Output Total 100 ml 350 ml Balance 20 ml -350 ml Intake Oral 120 ml 0 ml Output Urine Total 100 ml 350 ml # Bowel Movements 0 0 Result Diagram: 05/31/16 0500 06/04/16 0634 Imaging Last Impressions Renal Ultrasound 05/27/16 0000 Signed Impressions: Service Date/Time: Friday, May 27, 2016 14:59 - CONCLUSION: 1. Early/mild chronic medical renal disease suspected. 2. No obstructive uropathy or other acute abnormality seen. 3. Nonvisualization of the urinary bladder, presumably empty. Abimael Nunez MD Chest X-Ray 05/23/16 0002 Signed Impressions: Service Date/Time: April 00:27 - CONCLUSION: 1. Cardiomegaly with no evidence of pulmonary edema. 2. That is post median sternotomy. Shawn Martinez MD A/P Problem List: (1) CHF exacerbation Status: Acute Plan: - comgmt with Nephrology and Cardiology - Pt with CAD s/p 3v CABG in 2012 and A. fib presented with SOB, worsening LE edema with breakdown of lower ext skin and severe scrotal edema. Pt says he was going to lymphedema clinic for wraps and therapy in past. - Prior to admission his pcp doubled his Lasix last week w/out improvement. - He is noncompliant with CPAP for quite some time. ?Right heart failure - Pt presented with acute systolic CHF exacerbation -also seems to have venous insufficiency - 2D echo (05/23/16) - Estimated EF 45-50%, no regional wall motion abnormalities - Mild to moderate tricuspid regurgitation - PA peak pressure 34mmHg - Case discussed between Dr. Rich and Dr. Garcia on 05/28/16, who had previously been following the pt for his SUKUMAR. - tried to started back on BiPAP at night @16/12 FiO2 30% but pt was unable to tolerate this. - therapy changed to bumex 2mg IV BID with aldactone -continue diuresis and dressing changes to lower ext's - Pt might need HD in future. -PT. (2) Atrial fibrillation Status: Chronic Plan: - Cont. BB - Pt is currently anticoagulated on Coumadin 3mg po daily (3) CAD (coronary artery disease) Status: Chronic Plan: - s/p cabg x 3 2011. - Pt had V tach noted on telemetry - Cardiology following -tenzin neg for ischemia (4) HTN (hypertension) Status: Chronic Plan: - Cont home meds - Monitor (5) CKD (chronic kidney disease) stage 3, GFR 30-59 ml/min Status: Chronic Plan: - See above. Problem Qualifiers (1) CHF exacerbation: Qualified Code: I50.9 - Acute on chronic congestive heart failure, unspecified congestive heart failure type Alfonso Asif MD Jun 04, 2016 12:26
[2016-06-04 16:00] VITALS: BP 131/62; PULSE 60; RESP 16; TEMP 98; O2SAT 91
[2016-06-04] MEDS: WARFARIN SOD 3 MG TAB PO SCH (17:22)
[2016-06-04 20:00] VITALS: BP 113/65; PULSE 77; RESP 20; TEMP 98.3; O2SAT 96
[2016-06-04] MEDS: SENNOSIDES 8.6 MG TAB PO SCH (21:00)
[2016-06-04] MEDS: TAMSULOSIN HCL 0.4 MG CAP PO SCH (21:55)
[2016-06-04] MEDS: ATORVASTATIN 20 MG TAB PO SCH (21:55)
[2016-06-04] MEDS: oxyCODONE/ACETAMINOPHEN 7.5 MG/325 MG TAB PO PRN (23:49)
[2016-06-05] VITALS: BP 117/66; PULSE 89; RESP 20; TEMP 98; O2SAT 94
[2016-06-05 07:23] LABS: INTERNATIONAL NORMALIZED RATIO 2.6 RATIO; PROTHROMBIN TIME - PATIENT 30.2 SEC (9.8-11.6)
[2016-06-05 07:49] LABS: BICARBONATE 32.2 MEQ/L (21.0-32.0); POTASSIUM 3.5 MEQ/L (3.5-5.1)
[2016-06-05] MEDS: SODIUM CHLORIDE 0.9% FLUSH 5 ML FLUSH IVF SCH ×2 (09:00→21:00)
[2016-06-05] MEDS: ALLOPURINOL 100 MG TAB PO SCH (09:40)
[2016-06-05] MEDS: METOPROLOL SUCCINATE 50 MG EXTENDED RELEASE TAB PO SCH (09:40)
[2016-06-05] MEDS: amLODIPine BESYLATE 5 MG TAB PO SCH (09:40)
[2016-06-05] MEDS: SPIRONOLACTONE 25 MG TAB PO SCH (09:40)
[2016-06-05] MEDS: PANTOPRAZOLE SOD 40 MG DELAYED RELEASE TAB PO SCH (09:40)
[2016-06-05] MEDS: BUMETANIDE INJ 1 MG/4 ML VIAL IV PUSH SCH ×2 (09:40→18:00)
--- NOTE | 2016-06-05 11:03 | HHI.PR ---
Subjective Remarks stable. no new complaints Objective Vitals heart reg lung cta abd s/nt ext anasarca. legs wrapped scrotal edema Vital Signs Date Time Temp Pulse Resp B/P Pulse Ox O2 Delivery O2 Flow Rate FiO2 06/05/16 00:00 98.0 89 20 117/66 94 06/05/16 00:00 Room Air 06/04/16 20:00 Room Air 06/04/16 20:00 98.3 77 20 113/65 96 06/04/16 16:00 98.0 60 16 131/62 91 06/04/16 15:00 Room Air 06/04/16 12:00 98.0 66 16 127/58 96 06/04/16 06/04/16 06/05/16 15:00 23:00 07:00 Intake Total 360 ml 240 ml 100 ml Output Total 825 ml 350 ml Balance -465 ml -110 ml 100 ml Intake Oral 360 ml 240 ml 100 ml Output Urine Total 825 ml 350 ml # Bowel Movements 0 Result Diagram: 06/05/16 0650 Imaging Last Impressions Renal Ultrasound 05/27/16 0000 Signed Impressions: Service Date/Time: Friday, May 27, 2016 14:59 - CONCLUSION: 1. Early/mild chronic medical renal disease suspected. 2. No obstructive uropathy or other acute abnormality seen. 3. Nonvisualization of the urinary bladder, presumably empty. Abimael Nunez MD Chest X-Ray 05/23/16 0002 Signed Impressions: Service Date/Time: April 00:27 - CONCLUSION: 1. Cardiomegaly with no evidence of pulmonary edema. 2. That is post median sternotomy. Shawn Martinez MD A/P Problem List: (1) CHF exacerbation Status: Acute Plan: - comgmt with Nephrology and Cardiology - Pt with CAD s/p 3v CABG in 2011 and A. fib presented with SOB, worsening LE edema with breakdown of lower ext skin and severe scrotal edema. Pt says he was going to lymphedema clinic for wraps and therapy in past. - Prior to admission his pcp doubled his Lasix last week w/out improvement. - He is noncompliant with CPAP for quite some time. ?Right heart failure - Pt presented with acute systolic CHF exacerbation -also seems to have venous insufficiency - 2D echo (05/23/16) - Estimated EF 45-50%, no regional wall motion abnormalities - Mild to moderate tricuspid regurgitation - PA peak pressure 34mmHg - Case discussed between Dr. Rich and Dr. Garcia on 05/28/16, who had previously been following the pt for his SUKUMAR. - tried to started back on BiPAP at night @16/12 FiO2 30% but pt was unable to tolerate this. - therapy changed to bumex 2mg IV BID with aldactone. will add albumen today. - stop norvasc -dressing changes to lower ext's - Pt might need HD in future. -PT. (2) Atrial fibrillation Status: Chronic Plan: - Cont. BB - Pt is currently anticoagulated on Coumadin 3mg po daily (3) CAD (coronary artery disease) Status: Chronic Plan: - s/p cabg x 3 2011. - Pt had V tach noted on telemetry - Cardiology following -tenzin neg for ischemia (4) HTN (hypertension) Status: Chronic Plan: - Cont home meds - Monitor (5) CKD (chronic kidney disease) stage 3, GFR 30-59 ml/min Status: Chronic Plan: - See above. Problem Qualifiers (1) CHF exacerbation: Qualified Code: I50.9 - Acute on chronic congestive heart failure, unspecified congestive heart failure type Alfonso Asif MD Jun 05, 2016 11:03
--- NOTE | 2016-06-05 11:15 | HHI.NPPN ---
Subjective Complaints: Obesity General Problems: Edema Renal Failure: Chronic, Acute Interval History Edema persists but overall improved. Renal function slightly worse today. ( Laisha Licea) Review of Systems General Constitutional: Fatigue (Laisha Licea) Cardiovascular Cardiac: Edema, LOW (Laisha Licea) Objective Data Data 06/04/16 06/05/16 19:00 07:00 Intake Total 360 ml 340 ml Output Total 825 ml 350 ml Balance -465 ml -10 ml Intake Oral 360 ml 340 ml Output Urine Total 825 ml 350 ml # Bowel Movements 0 Vital Signs Date Time Temp Pulse Resp B/P Pulse Ox O2 Delivery O2 Flow Rate FiO2 06/05/16 00:00 98.0 89 20 117/66 94 06/05/16 00:00 Room Air 06/04/16 20:00 Room Air 06/04/16 20:00 98.3 77 20 113/65 96 06/04/16 16:00 98.0 60 16 131/62 91 06/04/16 15:00 Room Air 06/04/16 12:00 98.0 66 16 127/58 96 (Laisha Licea) -: 06/05/16 0650 Physical Exam General Appearance: Well Developed, Well Nourished, No Acute Distress, Comfortable ( Laisha Licea) Eyes Eye Exam: Pupils Equal (Laisha Licea) Neck Neck Exam: Neck Supple (Laisha Licea) Pulmonary Resp Exam: Clear Bilaterally, Breath Sounds Equal, Decreased Bases (Laisha Licea) Cardiology CV Exam: Good Perfusion, Irregular (Laisha Licea) Gastrointestinal/Abdomen GI Exam: Soft, Non-Tender, Bowel Sounds Present, Distended (Laisha Licea) Genitourinary Remarks significant scrotal edema (Laisha Licea) Musculoskeletal MS Exam: Joints Intact, Normal Tone (Laisha Licea) Integumentary Skin Exam: Clear, Warm, Dry (Laisha Licea) Extremeties Extremities Exam: Pedal Pulses Palpable, Pitting Edema, Dependent Edema ( Laisha Licea) Neurologic Neuro Exam: Alert, Awake, Oriented, Speech Clear, Moving All Extremities ( Laisha Licea) Psychiatric Psych Exam: Appropriate Responses (Laisha Licea) Assessment/Plan Problem List: (1) CKD (chronic kidney disease) stage 3, GFR 30-59 ml/min Plan: Renal function is worse again today, likely due to aggressive diuresis He is on Bumex and Aldactone, which we will continue, he is diuresing well K is acceptable we will continue diuretics for one more day Monitor urine output and renal function. Unsure if his weight is accurate Discussed importance of salt restriction, elevate lower extremities and scrotum Discussed possibility of dialysis in the future if renal function worsens in the setting of fluid overload. Renal replacement not indicated at this time, continue to monitor (2) CHF exacerbation Plan: monitor fluid volume status, continue diureses Cardiology following. (3) HTN (hypertension) Plan: On ARB. We will have to closely monitor potassium and renal function due to combination of spironolactone and Losartan. Spironolactone should be stopped once edema improves. (4) CAD (coronary artery disease) Plan: Previous coronary artery bypass graft No reports of chest pain (Laisha Licea) Plan patient was seen and examined. Significant volume overload persists, but is improving. Azotemia is noted. Continue diuretics as ordered for now, soon we may have to scale back. (Donny iVdal MD) Problem Qualifiers (1) CHF exacerbation: Qualified Code: I50.9 - Acute on chronic congestive heart failure, unspecified congestive heart failure type Laisha Licea Jun 05, 2016 11:15 Donny Vidal MD Jun 06, 2016 08:16
[2016-06-05 12:00] VITALS: BP 106/55; PULSE 64; RESP 20; TEMP 98.3; O2SAT 96
[2016-06-05 16:00] VITALS: BP 118/55; PULSE 66; RESP 20; TEMP 98.4; O2SAT 99
[2016-06-05] MEDS: ALBUMIN HUMAN 25% 25 GM/100 ML BAGP IV SCH (17:20)
[2016-06-05] MEDS: WARFARIN SOD 3 MG TAB PO SCH (17:20)
[2016-06-05 20:00] VITALS: BP 113/56; PULSE 79; RESP 18; TEMP 98.6; O2SAT 96
[2016-06-05] MEDS: LOSARTAN 50 MG TAB PO SCH (21:05)
[2016-06-05] MEDS: TAMSULOSIN HCL 0.4 MG CAP PO SCH (21:05)
[2016-06-05] MEDS: SENNOSIDES 8.6 MG TAB PO SCH (21:05)
[2016-06-05] MEDS: ATORVASTATIN 20 MG TAB PO SCH (21:05)
[2016-06-06] VITALS (9 sets, daily range): BP systolic 106–142; BP diastolic 54–76; PULSE 61–83; RESP 16–18; TEMP 98.2–98.9; O2SAT 92–98
[2016-06-06 06:07] LABS: INTERNATIONAL NORMALIZED RATIO 2.3 RATIO; PROTHROMBIN TIME - PATIENT 26.2 SEC (9.8-11.6)
[2016-06-06 06:18] LABS: BICARBONATE 32.5 MEQ/L (21.0-32.0); MAGNESIUM 1.8 MG/DL (1.5-2.5); POTASSIUM 3.6 MEQ/L (3.5-5.1)
[2016-06-06] MEDS: SODIUM CHLORIDE 0.9% FLUSH 5 ML FLUSH IVF SCH ×2 (09:00→21:00)
[2016-06-06] MEDS: ALBUMIN HUMAN 25% 25 GM/100 ML BAGP IV SCH ×2 (09:39→18:41)
[2016-06-06] MEDS: METOPROLOL SUCCINATE 50 MG EXTENDED RELEASE TAB PO SCH (09:39)
[2016-06-06] MEDS: ALLOPURINOL 100 MG TAB PO SCH (09:39)
[2016-06-06] MEDS: SPIRONOLACTONE 25 MG TAB PO SCH (09:39)
[2016-06-06] MEDS: PANTOPRAZOLE SOD 40 MG DELAYED RELEASE TAB PO SCH (09:39)
[2016-06-06] MEDS: BUMETANIDE INJ 1 MG/4 ML VIAL IV PUSH SCH (10:57)
--- NOTE | 2016-06-06 12:06 | HHI.NPPN ---
Subjective Complaints: Obesity General Problems: Edema Renal Failure: Chronic, Acute Interval History Renal function has been stable overnight. Diuresing well. (Laisha Licea) Review of Systems General Constitutional: Fatigue (Laisha Licea) Cardiovascular Cardiac: Edema, LOW (Laisha Licea) Objective Data Data 06/05/16 06/06/16 19:00 07:00 Intake Total 240 ml 480 ml Output Total 970 ml 800 ml Balance -730 ml -320 ml Intake Oral 240 ml 480 ml Output Urine Total 970 ml 800 ml # Bowel Movements 0 Vital Signs Date Time Temp Pulse Resp B/P Pulse Ox O2 Delivery O2 Flow Rate FiO2 06/06/16 08:00 98.4 72 18 119/56 96 06/06/16 00:00 98.5 61 18 140/62 96 06/05/16 21:00 Room Air 06/05/16 20:00 98.6 79 18 113/56 96 06/05/16 16:00 98.4 66 20 118/55 99 06/05/16 15:00 Room Air (Laisha Licea) -: 06/06/16 0513 Physical Exam General Appearance: Well Developed, Well Nourished, No Acute Distress, Comfortable ( Laisha Licea) Eyes Eye Exam: Pupils Equal (Laisha Licea) Neck Neck Exam: Neck Supple (Laisha Licea) Pulmonary Resp Exam: Clear Bilaterally, Breath Sounds Equal, Decreased Bases (Laisha Licea) Cardiology CV Exam: Good Perfusion, Irregular (Laisha Licea) Gastrointestinal/Abdomen GI Exam: Soft, Non-Tender, Bowel Sounds Present, Distended (Laisha Licea) Genitourinary Exam: Clear Urine Remarks significant scrotal edema (Laisha Licea) Musculoskeletal MS Exam: Joints Intact, Normal Tone (Laisha Licea) Integumentary Skin Exam: Clear, Warm, Dry (Laisha iLcea) Extremeties Extremities Exam: Pedal Pulses Palpable, Pitting Edema, Dependent Edema ( Laisha Licea) Neurologic Neuro Exam: Alert, Awake, Oriented, Speech Clear, Moving All Extremities ( Laisha Licea) Psychiatric Psych Exam: Appropriate Responses (Laisha Licea) Assessment/Plan Discussed Condition With: Patient Problem List: (1) CKD (chronic kidney disease) stage 3, GFR 30-59 ml/min Plan: Renal function has remained stable overnight He is on Bumex and Aldactone, he is diuresing well K is acceptable we will change diuretics tomorrow, Aldactone will be stopped after today Monitor urine output and renal function. edema improving Discussed importance of salt restriction, elevate lower extremities and scrotum he was going to Lymphedema clinic that was helping with the swelling, which we discussed and we recommend him going back for services Discussed possibility of dialysis in the future if renal function worsens in the setting of fluid overload. Renal replacement not indicated at this time, continue to monitor (2) CHF exacerbation Plan: monitor fluid volume status, continue diureses Cardiology following. (3) HTN (hypertension) Plan: On ARB. We continue to monitor K and renal function due to combination of spironolactone and Losartan. Spironolactone will be stopped after today (4) CAD (coronary artery disease) Plan: Previous coronary artery bypass graft No reports of chest pain (Laisha Licea) Plan patient was seen and examined. Long discussion with the patient. Previously he used to visit lymphedema clinic which controlled his lower extremity edema. Dr. Asif suggested Bumex drip, and attempting that for about 12 hours and monitoring the response is reasonable. My suspicion is that Mr. Moody will always have some degree of lower extremity edema and it has been a chronic condition for him. Hopefully scrotal swelling will improve with diuresis. Continue to monitor renal function. He was encouraged to go back to Lymphedema clinic on a regular basis after his discharge. (Donny Vidal MD) Problem Qualifiers (1) CHF exacerbation: Qualified Code: I50.9 - Acute on chronic congestive heart failure, unspecified congestive heart failure type Laisha Licea Jun 06, 2016 12:06 Donny Vidal MD Jun 06, 2016 20:39
--- NOTE | 2016-06-06 12:10 | HHI.PR ---
Subjective Remarks in chair. Objective Vitals heart reg lung cta abd s/nt ext lower ext edema/scrotal edema lower ext skin breakdown improved but still coin sized superficial erosion on posterior right leg. Vital Signs Date Time Temp Pulse Resp B/P Pulse Ox O2 Delivery O2 Flow Rate FiO2 06/06/16 08:00 98.4 72 18 119/56 96 06/06/16 00:00 98.5 61 18 140/62 96 06/05/16 21:00 Room Air 06/05/16 20:00 98.6 79 18 113/56 96 06/05/16 16:00 98.4 66 20 118/55 99 06/05/16 15:00 Room Air 06/05/16 06/05/16 06/06/16 15:00 23:00 07:00 Intake Total 240 ml 360 ml 120 ml Output Total 970 ml 300 ml 500 ml Balance -730 ml 60 ml -380 ml Intake Oral 240 ml 360 ml 120 ml Output Urine Total 970 ml 300 ml 500 ml # Bowel Movements 0 Result Diagram: 06/06/16 0513 Imaging Last Impressions Renal Ultrasound 05/27/16 0000 Signed Impressions: Service Date/Time: Friday, May 27, 2016 14:59 - CONCLUSION: 1. Early/mild chronic medical renal disease suspected. 2. No obstructive uropathy or other acute abnormality seen. 3. Nonvisualization of the urinary bladder, presumably empty. Abimael Nunez MD Chest X-Ray 05/23/16 0002 Signed Impressions: Service Date/Time: April 00:27 - CONCLUSION: 1. Cardiomegaly with no evidence of pulmonary edema. 2. That is post median sternotomy. Shawn Martinez MD A/P Problem List: (1) CHF exacerbation Status: Acute Plan: - comgmt with Nephrology and Cardiology - Pt with CAD s/p 3v CABG in 2012 and A. fib presented with SOB, worsening LE edema with breakdown of lower ext skin and severe scrotal edema. Pt says he was going to lymphedema clinic for wraps and therapy in past. - Prior to admission his pcp doubled his Lasix last week w/out improvement. - He is noncompliant with CPAP for quite some time. ?Right heart failure - Pt presented with acute systolic CHF exacerbation -also seems to have venous insufficiency - 2D echo (05/23/16) - Estimated EF 45-50%, no regional wall motion abnormalities - Mild to moderate tricuspid regurgitation - PA peak pressure 34mmHg - Case discussed between Dr. Rich and Dr. Garcia on 05/28/16, who had previously been following the pt for his SUKUMAR. - tried to started back on BiPAP at night @16/12 FiO2 30% but pt was unable to tolerate this. - therapy changed to bumex 2mg IV BID with aldactone. added albumen today. will discuss ?bumex gtt with nephrology. - stop norvasc -dressing changes to lower ext's - Pt might need HD in future. -PT. (2) Atrial fibrillation Status: Chronic Plan: - Cont. BB - Pt is currently anticoagulated on Coumadin 3mg po daily (3) CAD (coronary artery disease) Status: Chronic Plan: - s/p cabg x 3 2011. - Pt had V tach noted on telemetry - Cardiology following -tenzin neg for ischemia (4) HTN (hypertension) Status: Chronic Plan: - Cont home meds - Monitor (5) CKD (chronic kidney disease) stage 3, GFR 30-59 ml/min Status: Chronic Plan: - See above. Problem Qualifiers (1) CHF exacerbation: Qualified Code: I50.9 - Acute on chronic congestive heart failure, unspecified congestive heart failure type Alfonso Asif MD Jun 06, 2016 12:10
[2016-06-06] MEDS: WARFARIN SOD 3 MG TAB PO SCH (17:13)
[2016-06-06] MEDS: BUMETANIDE INJ 100 ML IV SCH (18:53)
[2016-06-06] MEDS ORDERED: LOSARTAN 50 MG TAB PO SCH (21:00)
[2016-06-06] MEDS ORDERED: POTASSIUM CHLORIDE 20 MEQ CONTROLLED RELEASE TAB PO ONE (21:15)
[2016-06-06] MEDS: TAMSULOSIN HCL 0.4 MG CAP PO SCH (22:19)
[2016-06-06] MEDS: SENNOSIDES 8.6 MG TAB PO SCH (22:20)
[2016-06-06] MEDS: ATORVASTATIN 20 MG TAB PO SCH (22:22)
[2016-06-07] VITALS (22 sets, daily range): BP systolic 116–138; BP diastolic 63–77; PULSE 41–92; RESP 16–18; TEMP 98.1–98.8; O2SAT 95–99
[2016-06-07] MEDS: oxyCODONE/ACETAMINOPHEN 7.5 MG/325 MG TAB PO PRN ×2 (00:07→22:31)
[2016-06-07 07:20] LABS: BICARBONATE 32.8 MEQ/L (21.0-32.0); POTASSIUM 3.8 MEQ/L (3.5-5.1)
--- NOTE | 2016-06-07 08:29 | HHI.PR ---
Subjective Remarks in bed. says he filled up about 1 and 1/3 of the urinals overnight. Objective Vitals heart reg lung cta abd s/nt ext edema/scrotal edema. legs wrapped. Vital Signs Date Time Temp Pulse Resp B/P Pulse Ox O2 Delivery O2 Flow Rate FiO2 06/07/16 03:00 98.4 73 16 116/63 99 06/07/16 03:00 99 Room Air 06/06/16 23:00 92 Room Air 06/06/16 23:00 98.6 73 16 137/76 92 06/06/16 19:00 98 Room Air 06/06/16 19:00 98.3 78 16 117/57 98 06/06/16 15:00 98.9 73 18 106/54 96 06/06/16 15:00 97 Room Air 06/06/16 12:00 98.2 71 18 142/64 97 06/06/16 11:00 Room Air 06/06/16 06/06/16 06/07/16 15:00 23:00 07:00 Intake Total 500 ml 500 ml Output Total 500 ml 225 ml Balance 0 ml 275 ml Intake Oral 400 ml 480 ml IV Total 20 ml Albumin 100 ml Output Urine Total 500 ml 225 ml # Bowel Movements 0 Result Diagram: 06/07/16 0620 Imaging Last Impressions Renal Ultrasound 05/27/16 0000 Signed Impressions: Service Date/Time: Friday, May 27, 2016 14:59 - CONCLUSION: 1. Early/mild chronic medical renal disease suspected. 2. No obstructive uropathy or other acute abnormality seen. 3. Nonvisualization of the urinary bladder, presumably empty. Abimael Nunez MD Chest X-Ray 05/23/16 0002 Signed Impressions: Service Date/Time: April 00:27 - CONCLUSION: 1. Cardiomegaly with no evidence of pulmonary edema. 2. That is post median sternotomy. Shawn Martinez MD A/P Problem List: (1) CHF exacerbation Status: Acute Plan: - comgmt with Nephrology and Cardiology - Pt with CAD s/p 3v CABG in 2011 and A. fib presented with SOB, worsening LE edema with breakdown of lower ext skin and severe scrotal edema. Pt says he was going to lymphedema clinic for wraps and therapy in past. - Prior to admission his pcp doubled his Lasix last week w/out improvement. - He is noncompliant with CPAP for quite some time. - Pt presented with acute systolic CHF exacerbation - 2D echo (05/23/16) - Estimated EF 45-50%, no regional wall motion abnormalities - Mild to moderate tricuspid regurgitation - PA peak pressure 34mmHg Pt's swelling seems multifactorial...chf, untreated abiel, venous insufficiency and lymphedema, ckd also stopped his norvasc discussed with dr Vidal we are giving him a trial iv bumex gtt. I will keep monitoring his renal function closely and stop if worsening so far it has been difficult to get accurate assessment of his weight and daily output. he will be referred back to lymphedema clinic upon d/c (2) Atrial fibrillation Status: Chronic Plan: - Cont. BB - Pt is currently anticoagulated on Coumadin 3mg po daily (3) CAD (coronary artery disease) Status: Chronic Plan: - s/p cabg x 3 2011. - Pt had V tach noted on telemetry - Cardiology following -tenzin neg for ischemia (4) HTN (hypertension) Status: Chronic Plan: - Cont home meds - Monitor (5) CKD (chronic kidney disease) stage 3, GFR 30-59 ml/min Status: Chronic Plan: - See above. Problem Qualifiers (1) CHF exacerbation: Qualified Code: I50.9 - Acute on chronic congestive heart failure, unspecified congestive heart failure type Alfonso Asif MD Jun 07, 2016 08:29
[2016-06-07] MEDS: PANTOPRAZOLE SOD 40 MG DELAYED RELEASE TAB PO SCH (09:51)
[2016-06-07] MEDS: ALBUMIN HUMAN 25% 25 GM/100 ML BAGP IV SCH ×2 (09:51→22:32)
[2016-06-07] MEDS: LACTULOSE SYRUP 20 GM/30 ML CUP PO SCH (09:51)
[2016-06-07] MEDS: ALLOPURINOL 100 MG TAB PO SCH (09:51)
[2016-06-07] MEDS: METOPROLOL SUCCINATE 50 MG EXTENDED RELEASE TAB PO SCH (09:51)
[2016-06-07] MEDS: SODIUM CHLORIDE 0.9% FLUSH 5 ML FLUSH IVF SCH ×2 (09:55→22:31)
--- NOTE | 2016-06-07 11:16 | HHI.NPPN ---
Subjective Complaints: Obesity General Problems: Edema Renal Failure: Chronic, Acute Interval History Bumex gtt started last night for fluid overload. He is diuresing well. Good urine output. Edema improving. Renal function is stable. (Laisha Licea) Review of Systems General Constitutional: Fatigue (Laisha Licea) Cardiovascular Cardiac: Edema, LOW (Laisha Licea) Objective Data Data 06/06/16 06/07/16 19:00 07:00 Intake Total 500 ml 500 ml Output Total 500 ml 225 ml Balance 0 ml 275 ml Intake Oral 400 ml 480 ml IV Total 20 ml Albumin 100 ml Output Urine Total 500 ml 225 ml # Bowel Movements 0 Vital Signs Date Time Temp Pulse Resp B/P Pulse Ox O2 Delivery O2 Flow Rate FiO2 06/07/16 10:02 73 06/07/16 07:00 98 Room Air 06/07/16 07:00 98.1 81 18 137/73 97 06/07/16 06:00 67 06/07/16 05:00 68 06/07/16 04:00 72 06/07/16 03:00 70 06/07/16 03:00 98.4 73 16 116/63 99 06/07/16 03:00 99 Room Air 06/07/16 02:00 66 06/07/16 01:00 70 06/07/16 00:00 87 06/06/16 23:00 92 Room Air 06/06/16 23:00 70 06/06/16 23:00 98.6 73 16 137/76 92 06/06/16 22:00 75 06/06/16 21:00 70 06/06/16 20:00 83 06/06/16 19:00 74 06/06/16 19:00 98 Room Air 06/06/16 19:00 98.3 78 16 117/57 98 06/06/16 15:00 98.9 73 18 106/54 96 06/06/16 15:00 97 Room Air 06/06/16 12:00 98.2 71 18 142/64 97 (Laisha Licea) -: 06/07/16 0620 Drip Comment Bumex at 1 mg/hr (Laisha Licea) Physical Exam General Appearance: Well Developed, Well Nourished, No Acute Distress, Comfortable ( Laisha Licea. [employer]) Eyes Eye Exam: Pupils Equal (Laisha Licea [employer]) Neck Neck Exam: Neck Supple (Laisha Licea [employer]) Pulmonary Resp Exam: Clear Bilaterally, Breath Sounds Equal, Decreased Bases (Laisha Licea. [employer]) Cardiology CV Exam: Good Perfusion, Irregular (Laisha Licea. [employer]) Gastrointestinal/Abdomen GI Exam: Soft, Non-Tender, Bowel Sounds Present, Distended (Laisha Licea. [employer]) Genitourinary Exam: Clear Urine Remarks significant scrotal edema (Laisha Licea [employer]) Musculoskeletal MS Exam: Joints Intact, Normal Tone (Laisha Licea. [employer]) Integumentary Skin Exam: Clear, Warm, Dry, Intact (Laisha Licea. [employer]) Extremeties Extremities Exam: Pedal Pulses Palpable, Pitting Edema, Dependent Edema ( Laisha Licea. [employer]) Neurologic Neuro Exam: Alert, Awake, Oriented, Speech Clear, Moving All Extremities ( Laisha Licea. [employer]) Psychiatric Psych Exam: Appropriate Responses (Laisha Licea) Assessment/Plan Discussed Condition With: Patient Problem List: (1) CKD (chronic kidney disease) stage 3, GFR 30-59 ml/min Plan: Renal function has improved slightly He is on Bumex gtt since last night, edema improving , Aldactone was stopped K is acceptable Monitor urine output and renal function. continue diuresis for the time being stressed importance of salt restriction, elevation of lower extremities and scrotum he was given albumin he was going to Lymphedema clinic that was helping with the swelling, which we discussed and we recommend him going back for services Discussed possibility of dialysis in the future if renal function worsens in the setting of fluid overload. Renal replacement not indicated at this time, continue to monitor (2) CHF exacerbation Plan: monitor fluid volume status, continue diureses with bumex gtt Cardiology following. (3) HTN (hypertension) Plan: On ARB. We continue to monitor K and renal function with Losartan. Spironolactone was stopped (4) CAD (coronary artery disease) Plan: Previous coronary artery bypass graft No reports of chest pain (Laisha Licea) Plan patient was seen and examined. He thinks that urine output has improved with Bumex drip. No change in scrotal swelling. Renal function is stable. Restart Spironolactone. Consider switching to PO diuretic in 1-2 days and discharge with outpatient followup at lymphedema clinic. (Donny Vidal MD) Problem Qualifiers (1) CHF exacerbation: Qualified Code: I50.9 - Acute on chronic congestive heart failure, unspecified congestive heart failure type Laisha Licea Jun 07, 2016 11:15 Donny Vidal MD Jun 07, 2016 16:24
[2016-06-07] MEDS: WARFARIN SOD 3 MG TAB PO SCH (15:52)
[2016-06-07] MEDS: SPIRONOLACTONE 25 MG TAB PO SCH (15:52)
[2016-06-07 17:57] LABS: BICARBONATE 30.5 MEQ/L (21.0-32.0); POTASSIUM 3.5 MEQ/L (3.5-5.1)
[2016-06-07] MEDS ORDERED: ALBUMIN HUMAN 25% 25 GM/100 ML BAGP IV ONE (18:00)
[2016-06-07] MEDS: SENNOSIDES 8.6 MG TAB PO SCH (21:00)
[2016-06-07] MEDS: TAMSULOSIN HCL 0.4 MG CAP PO SCH (22:30)
[2016-06-07] MEDS: ATORVASTATIN 20 MG TAB PO SCH (22:31)
[2016-06-08] VITALS (24 sets, daily range): BP systolic 113–156; BP diastolic 64–82; PULSE 63–88; RESP 16–20; TEMP 98.1–98.6; O2SAT 93–97
[2016-06-08] MEDS: ALBUMIN HUMAN 25% 25 GM/100 ML BAGP IV SCH ×3 (05:00→23:06)
[2016-06-08] MEDS: BUMETANIDE INJ 100 ML IV SCH (05:01)
[2016-06-08 05:52] LABS: BICARBONATE 29.5 MEQ/L (21.0-32.0)
[2016-06-08 05:53] LABS: POTASSIUM 3.9 MEQ/L (3.5-5.1)
[2016-06-08] MEDS: LACTULOSE SYRUP 20 GM/30 ML CUP PO SCH (08:01)
[2016-06-08] MEDS: oxyCODONE/ACETAMINOPHEN 7.5 MG/325 MG TAB PO PRN ×2 (08:02→21:21)
[2016-06-08] MEDS: METOPROLOL SUCCINATE 50 MG EXTENDED RELEASE TAB PO SCH (08:02)
[2016-06-08] MEDS: PANTOPRAZOLE SOD 40 MG DELAYED RELEASE TAB PO SCH (08:02)
[2016-06-08] MEDS: SODIUM CHLORIDE 0.9% FLUSH 5 ML FLUSH IVF SCH ×2 (08:02→21:00)
[2016-06-08] MEDS: SPIRONOLACTONE 25 MG TAB PO SCH (08:02)
[2016-06-08] MEDS: ALLOPURINOL 100 MG TAB PO SCH (08:02)
--- NOTE | 2016-06-08 08:38 | HHI.PR ---
Subjective Remarks difficult to walk and has alot of scrotal pain Objective Vitals heart reg lung cta abd s/nt ext anasarca including scrotal swelling and tenderness lower ext's wrapped. Vital Signs Date Time Temp Pulse Resp B/P Pulse Ox O2 Delivery O2 Flow Rate FiO2 06/08/16 06:00 86 06/08/16 05:00 68 06/08/16 04:00 72 06/08/16 03:00 Room Air 06/08/16 03:00 98.3 73 18 147/78 93 06/08/16 03:00 63 06/08/16 02:00 65 06/08/16 01:00 88 06/08/16 00:00 83 06/07/16 23:00 Room Air 06/07/16 23:00 77 06/07/16 23:00 98.8 66 18 138/70 95 06/07/16 22:00 73 06/07/16 21:00 80 06/07/16 20:00 79 06/07/16 19:00 98.7 84 16 138/70 96 06/07/16 19:00 Room Air 06/07/16 19:00 88 06/07/16 18:00 64 06/07/16 17:00 80 06/07/16 16:00 84 06/07/16 15:00 98 Room Air 06/07/16 15:00 63 06/07/16 15:00 98.1 77 18 122/66 97 06/07/16 14:00 92 06/07/16 13:06 72 06/07/16 12:00 65 06/07/16 11:22 98.1 71 18 129/77 97 06/07/16 11:22 41 06/07/16 11:22 98 Room Air 06/07/16 10:02 73 06/07/16 06/07/16 06/08/16 15:00 23:00 07:00 Intake Total 1124 ml 399 ml Output Total 1895 ml 505 ml Balance -771 ml -106 ml Intake Oral 800 ml 240 ml IV Total 124 ml 159 ml Albumin 200 ml Output Urine Total 1895 ml 505 ml # Bowel Movements 2 2 Result Diagram: 06/08/16 0419 Imaging Last Impressions Renal Ultrasound 05/27/16 0000 Signed Impressions: Service Date/Time: Friday, May 27, 2016 14:59 - CONCLUSION: 1. Early/mild chronic medical renal disease suspected. 2. No obstructive uropathy or other acute abnormality seen. 3. Nonvisualization of the urinary bladder, presumably empty. Abimael Nunez MD Chest X-Ray 05/23/16 0002 Signed Impressions: Service Date/Time: April 00:27 - CONCLUSION: 1. Cardiomegaly with no evidence of pulmonary edema. 2. That is post median sternotomy. Shawn Martinez MD A/P Problem List: (1) CHF exacerbation Status: Acute Plan: - comgmt with Nephrology and Cardiology - Pt with CAD s/p 3v CABG in 2011 and A. fib presented with SOB, worsening LE edema with breakdown of lower ext skin and severe scrotal edema. Pt says he was going to lymphedema clinic for wraps and therapy in past. - Prior to admission his pcp doubled his Lasix last week w/out improvement. - He is noncompliant with CPAP for quite some time. - Pt presented with acute systolic CHF exacerbation - 2D echo (05/23/16) - Estimated EF 45-50%, no regional wall motion abnormalities - Mild to moderate tricuspid regurgitation - PA peak pressure 34mmHg Pt's swelling seems multifactorial...chf, untreated abiel, venous insufficiency and lymphedema, ckd also stopped his norvasc discussed with dr Vidal we are giving him a trial iv bumex gtt. his cr/gfr are stable. will increase the bumex gtt I will keep monitoring his renal function closely and stop if worsening he will be referred back to lymphedema clinic upon d/c Pt is very frustrated and he and say he can't go home like this. (2) Atrial fibrillation Status: Chronic Plan: - Cont. BB - Pt is currently anticoagulated on Coumadin 3mg po daily (3) CAD (coronary artery disease) Status: Chronic Plan: - s/p cabg x 3 2011. - Pt had V tach noted on telemetry - Cardiology following -tenzin neg for ischemia (4) HTN (hypertension) Status: Chronic Plan: - Cont home meds - Monitor (5) CKD (chronic kidney disease) stage 3, GFR 30-59 ml/min Status: Chronic Plan: - See above. Problem Qualifiers (1) CHF exacerbation: Qualified Code: I50.9 - Acute on chronic congestive heart failure, unspecified congestive heart failure type Alfonso Asif MD Jun 08, 2016 08:38
[2016-06-08] MEDS ORDERED: BUMETANIDE INJ 100 ML IV SCH (11:00)
--- NOTE | 2016-06-08 15:03 | HHI.NPPN ---
Subjective Complaints: Obesity General Problems: Edema Renal Failure: Chronic, Acute Review of Systems General Constitutional: Fatigue Cardiovascular Cardiac: Edema, LOW Objective Data Data 06/07/16 06/08/16 19:00 07:00 Intake Total 1124 ml 399 ml Output Total 1895 ml 505 ml Balance -771 ml -106 ml Intake Oral 800 ml 240 ml IV Total 124 ml 159 ml Albumin 200 ml Output Urine Total 1895 ml 505 ml # Bowel Movements 2 2 Vital Signs Date Time Temp Pulse Resp B/P Pulse Ox O2 Delivery O2 Flow Rate FiO2 06/08/16 14:31 78 06/08/16 13:25 76 06/08/16 12:37 80 06/08/16 11:45 98.4 71 20 124/67 95 06/08/16 11:45 82 06/08/16 11:45 95 Room Air 06/08/16 10:46 78 06/08/16 09:48 18 06/08/16 09:00 80 06/08/16 08:15 84 06/08/16 08:15 98.1 86 20 156/82 96 06/08/16 08:15 96 Room Air 06/08/16 06:00 86 06/08/16 05:00 68 06/08/16 04:00 72 06/08/16 03:00 Room Air 06/08/16 03:00 98.3 73 18 147/78 93 06/08/16 03:00 63 06/08/16 02:00 65 06/08/16 01:00 88 06/08/16 00:00 83 06/07/16 23:00 Room Air 06/07/16 23:00 77 06/07/16 23:00 98.8 66 18 138/70 95 06/07/16 22:00 73 06/07/16 21:00 80 06/07/16 20:00 79 06/07/16 19:00 98.7 84 16 138/70 96 06/07/16 19:00 Room Air 06/07/16 19:00 88 06/07/16 18:00 64 06/07/16 17:00 80 06/07/16 16:00 84 -: 06/08/16 0419 Drip Comment Bumex at 1 mg/hr Physical Exam General Appearance: Well Developed, Well Nourished, No Acute Distress, Comfortable Eyes Eye Exam: Pupils Equal Neck Neck Exam: Neck Supple Pulmonary Resp Exam: Clear Bilaterally, Breath Sounds Equal, Decreased Bases Cardiology CV Exam: Good Perfusion, Irregular Gastrointestinal/Abdomen GI Exam: Soft, Non-Tender, Bowel Sounds Present, Distended Genitourinary Exam: Clear Urine Musculoskeletal MS Exam: Joints Intact, Normal Tone Integumentary Skin Exam: Clear, Warm, Dry, Intact Extremeties Extremities Exam: Pedal Pulses Palpable, Pitting Edema, Dependent Edema Neurologic Neuro Exam: Alert, Awake, Oriented, Speech Clear, Moving All Extremities Psychiatric Psych Exam: Appropriate Responses Assessment/Plan Discussed Condition With: Patient Problem List: (1) CKD (chronic kidney disease) stage 3, GFR 30-59 ml/min Plan: Renal function has improved slightly He is on Bumex gtt urine output 2.4 L creatinine 2.17, edema improving , Aldactone was stopped K is acceptable Monitor urine output and renal function. continue diuresis for the time being stressed importance of salt restriction, elevation of lower extremities and scrotum he was given albumin he was going to Lymphedema clinic that was helping with the swelling, which we discussed and we recommend him going back for services Discussed possibility of dialysis in the future if renal function worsens in the setting of fluid overload. Renal replacement not indicated at this time, continue to monitor (2) CHF exacerbation Plan: monitor fluid volume status, continue diureses with bumex gtt Cardiology following. (3) HTN (hypertension) Plan: On ARB. We continue to monitor K and renal function with Losartan. Spironolactone was stopped (4) CAD (coronary artery disease) Plan: Previous coronary artery bypass graft No reports of chest pain Problem Qualifiers (1) CHF exacerbation: Qualified Code: I50.9 - Acute on chronic congestive heart failure, unspecified congestive heart failure type Marianna Mosher MD Jun 08, 2016 15:03
[2016-06-08] MEDS: WARFARIN SOD 3 MG TAB PO SCH (15:55)
[2016-06-08] MEDS: SENNOSIDES 8.6 MG TAB PO SCH (21:00)
[2016-06-08] MEDS ORDERED: LOSARTAN 50 MG TAB PO SCH (21:00)
[2016-06-08] MEDS: ATORVASTATIN 20 MG TAB PO SCH (21:21)
[2016-06-08] MEDS: TAMSULOSIN HCL 0.4 MG CAP PO SCH (21:22)
[2016-06-09] VITALS (25 sets, daily range): BP systolic 113–148; BP diastolic 64–75; PULSE 66–90; RESP 16–20; TEMP 98.5–99.3; O2SAT 92–96
[2016-06-09] MEDS: oxyCODONE/ACETAMINOPHEN 7.5 MG/325 MG TAB PO PRN ×3 (01:40→13:38)
[2016-06-09 05:29] LABS: INTERNATIONAL NORMALIZED RATIO 2.4 RATIO; PROTHROMBIN TIME - PATIENT 27.7 SEC (9.8-11.6)
[2016-06-09 05:38] LABS: BICARBONATE 34.2 MEQ/L (21.0-32.0); POTASSIUM 3.4 MEQ/L (3.5-5.1)
[2016-06-09] MEDS: ALBUMIN HUMAN 25% 25 GM/100 ML BAGP IV SCH ×3 (06:36→22:03)
[2016-06-09] MEDS ORDERED: POTASSIUM CHLORIDE 20 MEQ CONTROLLED RELEASE TAB PO ONE (07:45)
[2016-06-09] MEDS: SODIUM CHLORIDE 0.9% FLUSH 5 ML FLUSH IVF SCH ×2 (08:06→20:28)
[2016-06-09] MEDS: PANTOPRAZOLE SOD 40 MG DELAYED RELEASE TAB PO SCH (08:14)
[2016-06-09] MEDS: ALLOPURINOL 100 MG TAB PO SCH (08:14)
[2016-06-09] MEDS: SPIRONOLACTONE 25 MG TAB PO SCH (08:14)
[2016-06-09] MEDS: METOPROLOL SUCCINATE 50 MG EXTENDED RELEASE TAB PO SCH (08:14)
[2016-06-09] MEDS: LACTULOSE SYRUP 20 GM/30 ML CUP PO SCH ×2 (08:15→08:17)
--- NOTE | 2016-06-09 08:34 | HHI.PR ---
Subjective Remarks in chair severe right knee pain says feet are much less swollen Objective Vitals heart reg lung cta abd s/nt ext legs wrapped to knee maribel. less edema scrotal edema but softer. tender right knee tender/effusion. unable to flex Vital Signs Date Time Temp Pulse Resp B/P Pulse Ox O2 Delivery O2 Flow Rate FiO2 06/09/16 08:13 88 20 132/68 92 06/09/16 06:00 80 06/09/16 05:00 88 06/09/16 04:00 79 06/09/16 03:00 94 Room Air 06/09/16 03:00 90 06/09/16 03:00 98.5 66 20 147/66 95 06/09/16 02:00 80 06/09/16 01:00 82 06/09/16 00:00 72 06/08/16 23:00 98.1 73 20 139/73 97 06/08/16 23:00 95 Room Air 06/08/16 23:00 72 06/08/16 22:00 70 06/08/16 21:00 70 06/08/16 20:00 76 06/08/16 19:45 98.6 72 16 113/64 95 06/08/16 19:00 96 Room Air 06/08/16 19:00 65 06/08/16 18:04 79 06/08/16 17:33 74 06/08/16 16:14 80 06/08/16 15:43 97 Room Air 06/08/16 15:43 76 06/08/16 15:43 98.3 70 18 120/76 97 06/08/16 14:31 78 06/08/16 13:25 76 06/08/16 12:37 80 06/08/16 11:45 98.4 71 20 124/67 95 06/08/16 11:45 82 06/08/16 11:45 95 Room Air 06/08/16 10:46 78 06/08/16 09:48 18 06/08/16 09:00 80 06/08/16 06/08/16 06/09/16 15:00 23:00 07:00 Intake Total 480 ml 768 ml Output Total 1100 ml 1250 ml Balance -620 ml -482 ml Intake Oral 480 ml 720 ml IV Total 48 ml Output Urine Total 1100 ml 1250 ml # Bowel Movements 0 0 Result Diagram: 06/09/16 0412 Imaging Last Impressions Renal Ultrasound 05/27/16 0000 Signed Impressions: Service Date/Time: Friday, May 27, 2016 14:59 - CONCLUSION: 1. Early/mild chronic medical renal disease suspected. 2. No obstructive uropathy or other acute abnormality seen. 3. Nonvisualization of the urinary bladder, presumably empty. Abimael Nunez MD Chest X-Ray 05/23/16 0002 Signed Impressions: Service Date/Time: April 00:27 - CONCLUSION: 1. Cardiomegaly with no evidence of pulmonary edema. 2. That is post median sternotomy. Shawn Martniez MD A/P Problem List: (1) CHF exacerbation Status: Acute Plan: - Pt with CAD s/p 3v CABG in 2011 and A. fib presented with SOB, worsening LE edema with breakdown of lower ext skin and severe scrotal edema. Pt says he was going to lymphedema clinic for wraps and therapy in past. - Prior to admission his pcp doubled his Lasix last week w/out improvement. - He is noncompliant with CPAP for quite some time. - Pt presented with acute systolic CHF exacerbation - 2D echo (05/23/16) - Estimated EF 45-50%, no regional wall motion abnormalities - Mild to moderate tricuspid regurgitation - PA peak pressure 34mmHg Pt's swelling seems multifactorial...chf, untreated abiel, venous insufficiency and lymphedema, ckd also stopped his norvasc we are giving him a trial iv bumex gtt. his cr/gfr are stable. increased bumex gtt to 1 mg/hr on 06/08 from .5mg/hr I will keep monitoring his renal function closely and stop if worsening he will be referred back to lymphedema clinic upon d/c Pt is very frustrated and he and say he can't go home like this. seems like he may have some cramping from the diuretics. u/s lower ext's. right knee xray replace kcl today. (2) Atrial fibrillation Status: Chronic Plan: - Cont. BB - Pt is currently anticoagulated on Coumadin 3mg po daily (3) CAD (coronary artery disease) Status: Chronic Plan: - s/p cabg x 3 2011. - Pt had V tach noted on telemetry - Cardiology following -tenzin neg for ischemia (4) HTN (hypertension) Status: Chronic Plan: - Cont home meds - Monitor (5) CKD (chronic kidney disease) stage 3, GFR 30-59 ml/min Status: Chronic Plan: - See above. Problem Qualifiers (1) CHF exacerbation: Qualified Code: I50.9 - Acute on chronic congestive heart failure, unspecified congestive heart failure type Alfonso Asif MD Jun 09, 2016 08:34
[2016-06-09] MEDS ORDERED: POTASSIUM CHLORIDE 20 MEQ CONTROLLED RELEASE TAB PO SCH (09:00)
[2016-06-09] MEDS ORDERED: POTASSIUM CL 40 MEQ/30 ML LIQ UDC PO ONE ×3 (09:00→20:00)
--- NOTE | 2016-06-09 09:05 | RADRPT ---
EXAM DATE/TIME: 06/09/2016 08:32 [facility] COMPARISON: No previous studies available for comparison. INDICATIONS : Right knee pain, denies injury MEDICAL HISTORY : Arthritis. SURGICAL HISTORY : Arthroscopic right knee surgery ENCOUNTER: Initial ACUITY: 4 - 6 months PAIN SCORE: 10/10 LOCATION: Right knee FINDINGS: Two view examination of the right knee demonstrates severe medial compartmental narrowing with small osteophytes. Small osteophytes of the patellofemoral joint Bony mineralization is normal. The suprap atellar soft tissues have a normal configuration. Surgical clips medial across the knee CONCLUSION: Marked joint space narrowing medially. No acute fracture Trevor Serrano MD on June 09, 2016 at 9:03 Board Certified Radiologist. This report was verified electronically.
--- NOTE | 2016-06-09 09:55 | RADRPT ---
EXAM DATE/TIME: 06/09/2016 09:19 [facility] COMPARISON: No previous studies available for comparison. INDICATIONS : Bilateral lower extremity edema and pain. MEDICAL HISTORY : Myocardial infarction. Hypertension. CVA. Anticaogulant therapy. Atrial fibrillation. SURGICAL HISTORY : CABG Left carotid endarterectomy. Cardiac catheterization. Umbilical hernia repair. Vasectomy. Orthop edic surgery, right knee and hand. ENCOUNTER: Subsequent ACUITY: 1 day PAIN SCORE: 10/10 LOCATION: Bilateral legs. TECHNIQUE: Venous ultrasound of the left and right leg was performed from the inguinal ligament to the proximal calf. Real-time, color Doppler and spectral tracing, compression and augmentation techniques were us ed. FINDINGS: RIGHT LEG: There is normal compressibility of the deep venous system from the inguinal region to the proximal ca lf. No echogenic clot is seen in the lumen of the common femoral, femoral, popliteal, and posterior tibial veins. There is a normal response of the venous system to proximal and distal augmentation an d respiration. LEFT LEG: There is normal compressibility of the deep venous system from the inguinal region to the proximal ca lf. No echogenic clot is seen in the lumen of the common femoral, femoral, popliteal, and posterior tibial veins. There is a normal response of the venous system to proximal and distal augmentation an d respiration. CONCLUSION: Normal examination. Multiloculated Soria's cyst Trevor Serrano MD on June 09, 2016 at 9:53 Board Certified Radiologist. This report was verified electronically.
--- NOTE | 2016-06-09 13:51 | HHI.NPPN ---
Subjective Complaints: Obesity General Problems: Edema Renal Failure: Chronic, Acute Review of Systems General Constitutional: Fatigue Cardiovascular Cardiac: Edema, LOW Objective Data Data 06/08/16 06/09/16 19:00 07:00 Intake Total 480 ml 768 ml Output Total 1100 ml 1250 ml Balance -620 ml -482 ml Intake Oral 480 ml 720 ml IV Total 48 ml Output Urine Total 1100 ml 1250 ml # Bowel Movements 0 0 Vital Signs Date Time Temp Pulse Resp B/P Pulse Ox O2 Delivery O2 Flow Rate FiO2 06/09/16 12:58 77 06/09/16 12:00 72 16 148/72 96 06/09/16 12:00 Room Air 06/09/16 11:18 77 06/09/16 11:00 74 06/09/16 10:00 74 06/09/16 09:00 78 06/09/16 08:13 88 20 132/68 92 06/09/16 08:00 Room Air 06/09/16 08:00 82 06/09/16 07:03 83 06/09/16 06:00 80 06/09/16 05:00 88 06/09/16 04:00 79 06/09/16 03:00 94 Room Air 06/09/16 03:00 90 06/09/16 03:00 98.5 66 20 147/66 95 06/09/16 02:00 80 06/09/16 01:00 82 06/09/16 00:00 72 06/08/16 23:00 98.1 73 20 139/73 97 06/08/16 23:00 95 Room Air 06/08/16 23:00 72 06/08/16 22:00 70 06/08/16 21:00 70 06/08/16 20:00 76 06/08/16 19:45 98.6 72 16 113/64 95 06/08/16 19:00 96 Room Air 06/08/16 19:00 65 06/08/16 18:04 79 06/08/16 17:33 74 06/08/16 16:14 80 06/08/16 15:43 97 Room Air 06/08/16 15:43 76 06/08/16 15:43 98.3 70 18 120/76 97 06/08/16 14:31 78 -: 06/09/16 0412 Drip Comment Bumex at 1 mg/hr Physical Exam General Appearance: Well Developed, Well Nourished, No Acute Distress, Comfortable Eyes Eye Exam: Pupils Equal Neck Neck Exam: Neck Supple Pulmonary Resp Exam: Clear Bilaterally, Breath Sounds Equal, Decreased Bases Cardiology CV Exam: Good Perfusion, Irregular Gastrointestinal/Abdomen GI Exam: Soft, Non-Tender, Bowel Sounds Present, Distended Genitourinary Exam: Clear Urine Musculoskeletal MS Exam: Joints Intact, Normal Tone Integumentary Skin Exam: Clear, Warm, Dry, Intact Extremeties Extremities Exam: Pedal Pulses Palpable, Pitting Edema, Dependent Edema Neurologic Neuro Exam: Alert, Awake, Oriented, Speech Clear, Moving All Extremities Psychiatric Psych Exam: Appropriate Responses Assessment/Plan Discussed Condition With: Patient Problem List: (1) CKD (chronic kidney disease) stage 3, GFR 30-59 ml/min Plan: Renal function has improved slightly He is on Bumex gtt urine output 2.3 L creatinine 2.13, edema improving , Aldactone was stopped K is low and been replaced Monitor urine output and renal function. continue diuresis for the time being stressed importance of salt restriction, elevation of lower extremities and scrotum he was given albumin he was going to Lymphedema clinic that was helping with the swelling, which we discussed and we recommend him going back for services Discussed possibility of dialysis in the future if renal function worsens in the setting of fluid overload. Renal replacement not indicated at this time, continue to monitor (2) CHF exacerbation Plan: monitor fluid volume status, continue diureses with bumex gtt Cardiology following. (3) HTN (hypertension) Plan: On ARB. We continue to monitor K and renal function with Losartan. Spironolactone was stopped (4) CAD (coronary artery disease) Plan: Previous coronary artery bypass graft No reports of chest pain Problem Qualifiers (1) CHF exacerbation: Qualified Code: I50.9 - Acute on chronic congestive heart failure, unspecified congestive heart failure type Marianna Mosher MD Jun 09, 2016 13:51
[2016-06-09] MEDS: WARFARIN SOD 3 MG TAB PO SCH (17:22)
[2016-06-09 19:41] LABS: BICARBONATE 33.3 MEQ/L (21.0-32.0); MAGNESIUM 1.7 MG/DL (1.5-2.5); POTASSIUM 3.6 MEQ/L (3.5-5.1)
[2016-06-09] MEDS: TAMSULOSIN HCL 0.4 MG CAP PO SCH (20:28)
[2016-06-09] MEDS: SENNOSIDES 8.6 MG TAB PO SCH (20:28)
[2016-06-09] MEDS: ATORVASTATIN 20 MG TAB PO SCH (20:28)
[2016-06-09] MEDS ORDERED: POTASSIUM CL 40 MEQ/30 ML LIQ UDC PO SCH (21:00)
[2016-06-10] VITALS (22 sets, daily range): BP systolic 106–136; BP diastolic 60–74; PULSE 72–95; RESP 18–20; TEMP 98.3–99.6; O2SAT 91–97
[2016-06-10] MEDS: oxyCODONE/ACETAMINOPHEN 7.5 MG/325 MG TAB PO PRN ×3 (00:47→23:59)
[2016-06-10] MEDS: ALBUMIN HUMAN 25% 25 GM/100 ML BAGP IV SCH (05:33)
[2016-06-10 07:10] LABS: BICARBONATE 31.9 MEQ/L (21.0-32.0); MAGNESIUM 1.7 MG/DL (1.5-2.5); POTASSIUM 3.7 MEQ/L (3.5-5.1)
[2016-06-10] MEDS: SPIRONOLACTONE 25 MG TAB PO SCH (08:45)
[2016-06-10] MEDS: METOPROLOL SUCCINATE 50 MG EXTENDED RELEASE TAB PO SCH (08:45)
[2016-06-10] MEDS: ALLOPURINOL 100 MG TAB PO SCH (08:45)
[2016-06-10] MEDS: POTASSIUM CL 40 MEQ/30 ML LIQ UDC PO SCH ×2 (08:45→20:21)
[2016-06-10] MEDS: PANTOPRAZOLE SOD 40 MG DELAYED RELEASE TAB PO SCH (08:45)
--- NOTE | 2016-06-10 09:19 | HHI.PR ---
Subjective Remarks Pt had out 1150cc of UOP yesterday. Objective Vitals Vital Signs Date Time Temp Pulse Resp B/P Pulse Ox O2 Delivery O2 Flow Rate FiO2 06/10/16 08:00 98.7 92 18 123/69 95 06/10/16 08:00 95 2.00 06/10/16 08:00 92 06/10/16 06:00 89 06/10/16 05:00 91 06/10/16 04:00 95 06/10/16 03:30 97 Room Air 06/10/16 03:29 99.6 72 18 128/74 97 06/10/16 03:00 72 06/10/16 02:00 84 06/10/16 01:00 84 06/10/16 00:00 74 06/09/16 23:00 96 Room Air 06/09/16 23:00 98.9 77 18 113/64 96 06/09/16 23:00 77 06/09/16 22:00 78 06/09/16 21:00 70 06/09/16 20:00 72 06/09/16 20:00 95 Room Air 06/09/16 20:00 99.3 73 18 135/75 95 06/09/16 19:00 68 06/09/16 18:00 73 06/09/16 16:00 76 06/09/16 15:30 Room Air 06/09/16 15:00 98.7 84 16 122/66 94 06/09/16 14:00 76 06/09/16 12:58 77 06/09/16 12:00 72 16 148/72 96 06/09/16 12:00 Room Air 06/09/16 11:18 77 06/09/16 11:00 74 06/09/16 10:00 74 06/09/16 06/09/16 06/10/16 14:59 22:59 06:59 Intake Total 728 ml Output Total 1150 ml Balance -422 ml Intake Oral 480 ml IV Total 48 ml Albumin 200 ml Output Urine Total 1150 ml # Bowel Movements 0 Result Diagram: 06/10/16 0610 Other Results Laboratory Tests Test 06/09/16 06/09/16 06/10/16 04:12 19:06 06:10 Prothrombin Time 27.7 SEC Prothromb Time International 2.4 RATIO Ratio Sodium Level 138 MEQ/L 137 MEQ/L 136 MEQ/L Potassium Level 3.4 MEQ/L 3.6 MEQ/L 3.7 MEQ/L Chloride Level 96 MEQ/L 95 MEQ/L 93 MEQ/L Carbon Dioxide Level 34.2 MEQ/L 33.3 MEQ/L 31.9 MEQ/L Anion Gap 8 MEQ/L 9 MEQ/L 11 MEQ/L Blood Urea Nitrogen 28 MG/DL 30 MG/DL 31 MG/DL Creatinine 2.13 MG/DL 2.18 MG/DL 2.41 MG/DL Estimat Glomerular Filtration 37 ML/MIN 36 ML/MIN 32 ML/MIN Rate Random Glucose 99 MG/DL 94 MG/DL 99 MG/DL Calcium Level 9.0 MG/DL 9.2 MG/DL 9.3 MG/DL Magnesium Level 1.7 MG/DL 1.7 MG/DL Phosphorus Level 2.7 MG/DL Imaging Last Impressions Renal Ultrasound 05/27/16 0000 Signed Impressions: Service Date/Time: Friday, May 27, 2016 14:59 - CONCLUSION: 1. Early/mild chronic medical renal disease suspected. 2. No obstructive uropathy or other acute abnormality seen. 3. Nonvisualization of the urinary bladder, presumably empty. Abimael Nunez MD Chest X-Ray 05/23/16 0002 Signed Impressions: Service Date/Time: April 00:27 - CONCLUSION: 1. Cardiomegaly with no evidence of pulmonary edema. 2. That is post median sternotomy. Shawn Martinez MD Objective Remarks General: NAD, AAOx3 Chest: CTA bilaterally Cardiac: Regular Abd: +BS, soft obese, nontender : Testicular edema is improving. Ext: Bilateral LE edema, improving A/P Problem List: (1) CHF exacerbation Status: Acute Plan: - Pt with CAD s/p 3v CABG in 2011 and A. fib presented with SOB, worsening LE edema with breakdown of lower ext skin and severe scrotal edema. Pt says he was going to lymphedema clinic for wraps and therapy in past. - Prior to admission his pcp doubled his Lasix last week w/out improvement. - He is noncompliant with CPAP for quite some time. - Pt presented with acute systolic CHF exacerbation - 2D echo (05/23/16) - Estimated EF 45-50%, no regional wall motion abnormalities - Mild to moderate tricuspid regurgitation - PA peak pressure 34mmHg - Pt's swelling seems multifactorial: CHF, untreated SUKUMAR, venous insufficiency and lymphedema, CKD, also stopped his norvasc - Pt has been on a trial of IV Bumex gtt. - The Bumex was increased to 1 mg/hr on 06/08 from .5mg/hr - Today his Creatinine bumped to 2.41. - We will decrease the Bumex gtt back down to 0.5mL/hr and continue to monitor his renal function closely and stop if worsening - Pt will be referred back to lymphedema clinic upon d/c - US lower ext's (115) was negative for DVT but did show a multiloculated Soria' s cyst. Right knee xray noted marked joint space narrowing medially with small osteophytes. (2) Atrial fibrillation Status: Chronic Plan: - Cont. BB - Pt is currently anticoagulated on Coumadin 3mg po daily (3) CAD (coronary artery disease) Status: Chronic Plan: - s/p cabg x 3 2011. - Pt had V tach noted on telemetry - Cardiology following -tenzin neg for ischemia (4) HTN (hypertension) Status: Chronic Plan: - Cont home meds - Monitor (5) CKD (chronic kidney disease) stage 3, GFR 30-59 ml/min Status: Chronic Plan: - See above. Assessment and Plan Patient examined. Assessment and plan formulated with Vanda Vaca PA-C. I agree with the above. Problem Qualifiers (1) CHF exacerbation: Qualified Code: I50.9 - Acute on chronic congestive heart failure, unspecified congestive heart failure type Vanda Vaca Jun 10, 2016 09:19 Michael Rich DO Jun 20, 2016 22:14
--- NOTE | 2016-06-10 16:34 | PD.RAD ---
Post Procedure Progress Note Pre Procedure Diagnosis: (1) CKD (chronic kidney disease) stage 3, GFR 30-59 ml/min Post Procedure Diagnosis: (1) CKD (chronic kidney disease) stage 3, GFR 30-59 ml/min Procedure Date: Jun 10, 2016 Supervising Radiologist: Connor Machado Proceduralist/Assist: Katerine Gould RT(R), RT Vitaly(R)() Anesthesia: Local Plan of Activity Patient to Unit: Nursing Unit Patient Condition: Good See PACS Report for procedural detail/treatment Central Venous Access Device Procedure 1 Right Hemodialysis Catheter Non-Tunneled Placement dual lumen Connor Machado MD Jun 10, 2016 16:34
[2016-06-10] MEDS ORDERED: HEPARIN SODIUM - IV 10,000 UNITS/10 ML VIAL IVF PRN ×2 (16:45→18:30)
[2016-06-10] MEDS ORDERED: SODIUM CHLORIDE 0.9% FLUSH 5 ML FLUSH IVF PRN (16:45)
--- NOTE | 2016-06-10 16:47 | RADRPT ---
EXAM DATE/TIME: 06/10/2016 16:24 [facility] COMPARISON: CHEST SINGLE AP, May 23, 2016, 0:27. INDICATIONS : VasCath placement. MEDICAL HISTORY : None. SURGICAL HISTORY : None. ENCOUNTER: Initial ACUITY: 1 day PAIN SCORE: 3/10 LOCATION: Bilateral chest FINDINGS: VasCath has been placed from the right with the tip in the expected location of the right atrium. Th ere is no pneumothorax. The heart is enlarged. Mild interstitial edema is present. Sternal wires ar e noted. CONCLUSION: VasCath in good position. Da Byrnes MD FACR on June 10, 2016 at 16:44 Board Certified Radiologist. This report was verified electronically.
--- NOTE | 2016-06-10 17:58 | HHI.NPPN ---
Subjective Complaints: Obesity General Problems: Edema Renal Failure: Chronic, Acute Review of Systems General Constitutional: Fatigue Cardiovascular Cardiac: Edema, LOW Objective Data Data 06/09/16 06/10/16 19:00 07:00 Intake Total 728 ml Output Total 1150 ml Balance -422 ml Intake Oral 480 ml IV Total 48 ml Albumin 200 ml Output Urine Total 1150 ml # Bowel Movements 0 Vital Signs Date Time Temp Pulse Resp B/P Pulse Ox O2 Delivery O2 Flow Rate FiO2 06/10/16 16:00 75 20 121/68 95 06/10/16 16:00 75 06/10/16 15:00 74 06/10/16 14:00 74 06/10/16 13:00 82 06/10/16 12:00 98.3 94 18 116/66 94 06/10/16 12:00 94 06/10/16 11:00 75 06/10/16 10:00 78 06/10/16 09:00 76 06/10/16 08:00 98.7 92 18 123/69 95 06/10/16 08:00 95 2.00 06/10/16 08:00 92 06/10/16 06:00 89 06/10/16 05:00 91 06/10/16 04:00 95 06/10/16 03:30 97 Room Air 06/10/16 03:29 99.6 72 18 128/74 97 06/10/16 03:00 72 06/10/16 02:00 84 06/10/16 01:00 84 06/10/16 00:00 74 06/09/16 23:00 96 Room Air 06/09/16 23:00 98.9 77 18 113/64 96 06/09/16 23:00 77 06/09/16 22:00 78 06/09/16 21:00 70 06/09/16 20:00 72 06/09/16 20:00 95 Room Air 06/09/16 20:00 99.3 73 18 135/75 95 06/09/16 19:00 68 06/09/16 18:00 73 -: 06/10/16 0610 Drip Comment Bumex at 1 mg/hr Physical Exam General Appearance: Well Developed, Well Nourished, No Acute Distress, Comfortable Eyes Eye Exam: Pupils Equal Neck Neck Exam: Neck Supple Pulmonary Resp Exam: Clear Bilaterally, Breath Sounds Equal, Decreased Bases Cardiology CV Exam: Good Perfusion, Irregular Gastrointestinal/Abdomen GI Exam: Soft, Non-Tender, Bowel Sounds Present, Distended Genitourinary Exam: Clear Urine Musculoskeletal MS Exam: Joints Intact, Normal Tone Integumentary Skin Exam: Clear, Warm, Dry, Intact Extremeties Extremities Exam: Pedal Pulses Palpable, Pitting Edema, Dependent Edema Neurologic Neuro Exam: Alert, Awake, Oriented, Speech Clear, Moving All Extremities Psychiatric Psych Exam: Appropriate Responses Assessment/Plan Discussed Condition With: Patient Problem List: (1) CKD (chronic kidney disease) stage 3, GFR 30-59 ml/min Plan: Renal function has declined not responding to Bumex He is on Bumex gtt urine output doing not so well and diuretic stopped he was going to Lymphedema clinic that was helping with the swelling, which we discussed and we recommend him going back for services Discussed dialysis in the setting of fluid overload. Explained procedure d/w Dr. Rich who agreed there is no alternate option except dialysis to get Fluid off him (2) CHF exacerbation Plan: monitor fluid volume status, continue diureses with bumex gtt dose decrease not effective dialysis planned Cardiology following. (3) HTN (hypertension) Plan: On ARB. We continue to monitor K and renal function with Losartan. Spironolactone was stopped (4) CAD (coronary artery disease) Plan: Previous coronary artery bypass graft No reports of chest pain Problem Qualifiers (1) CHF exacerbation: Qualified Code: I50.9 - Acute on chronic congestive heart failure, unspecified congestive heart failure type Marianna Mosher MD Jun 10, 2016 17:57
[2016-06-10] MEDS ORDERED: SODIUM CHLOR 0.9% 1000 ML INJ 1,000 ML IV PRN (18:16)
[2016-06-10] MEDS ORDERED: cloNIDine HCL 0.1 MG TAB PO PRN (18:30)
[2016-06-10] MEDS ORDERED: diphenhydrAMINE HCL 25 MG CAP PO PRN (18:30)
[2016-06-10] MEDS ORDERED: GELATIN 12 MM/7 MM FOAM TOP PRN (18:30)
[2016-06-10] MEDS ORDERED: MANNITOL 12.5 GM/50 ML VIAL IV PRN (18:30)
[2016-06-10] MEDS ORDERED: ACETAMINOPHEN 325 MG TAB PO PRN (18:30)
[2016-06-10] MEDS ORDERED: NITROGLYCERIN 0.4 MG SL 25 TABS/BTL SL PRN (18:30)
[2016-06-10] MEDS ORDERED: ONDANSETRON HCL 4 MG/2 ML VIAL IV PRN (18:30)
[2016-06-10] MEDS: LOSARTAN 50 MG TAB PO SCH (20:21)
[2016-06-10] MEDS: SENNOSIDES 8.6 MG TAB PO SCH (20:21)
[2016-06-10] MEDS: ATORVASTATIN 20 MG TAB PO SCH (20:22)
[2016-06-10] MEDS: SODIUM CHLORIDE 0.9% FLUSH 5 ML FLUSH IVF SCH (20:22)
[2016-06-10] MEDS: TAMSULOSIN HCL 0.4 MG CAP PO SCH (20:22)
[2016-06-11] VITALS (8 sets, daily range): BP systolic 102–148; BP diastolic 50–84; PULSE 71–90; RESP 18–20; TEMP 98.4–99; O2SAT 92–95
[2016-06-11 06:52] LABS: INTERNATIONAL NORMALIZED RATIO 2.3 RATIO; PROTHROMBIN TIME - PATIENT 25.8 SEC (9.8-11.6)
[2016-06-11 06:56] LABS: AUTOMATED NEUTROPHIL # 4.3 TH/MM3 (1.8-7.7); BASOPHIL # 0.1 TH/MM3 (0-0.2); BASOPHIL % 0.9 % (0.0-2.0); EOSINOPHIL # 0.3 TH/MM3 (0-0.4); EOSINOPHIL % 4.3 % (0.0-4.0); HEMATOCRIT 27.9 % (39.0-51.0); HEMO FLAGS DIFF FINAL; LYMPH % 15.4 % (9.0-44.0); LYMPHOCYTE # 0.9 TH/MM3 (1.0-4.8); MEAN CELL VOLUME 88.3 FL (80.0-100.0); MEAN CORPUSCULAR HEMOGLOBIN 28.6 PG (27.0-34.0); MEAN CORPUSCULAR HGB CONC 32.4 % (32.0-36.0); MONO % 8.4 % (0.0-8.0); PLATELET COUNT 191 TH/MM3 (150-450); RED BLOOD COUNT 3.16 MIL/MM3 (4.50-5.90); RED CELL DISTRIBUTION WIDTH 15.7 % (11.6-17.2); WHITE BLOOD COUNT 6.1 TH/MM3 (4.0-11.0)
[2016-06-11 07:26] LABS: MAGNESIUM 1.8 MG/DL (1.5-2.5); POTASSIUM 3.8 MEQ/L (3.5-5.1)
--- NOTE | 2016-06-11 08:47 | RADRPT ---
EXAM DATE/TIME: 06/10/2016 16:15 [facility] COMPARISON: No previous studies available for comparison. INDICATIONS : Patient with chronic kidney disease in need of vas cath placement. MEDICAL HISTORY : MT x 3 AFIB CHF CKF 3 Chronic edema Obesity Umbilical hernia repair Remote CVA ischemic toes atheroembolic dz SUKUMAR...untreated. DVT SURGICAL HISTORY : CABG x3 LT Carotid endardectomy ENCOUNTER: Initial ACUITY: 3 weeks PAIN SCORE: 10/10 LOCATION: Bilateral feet ACCESS: Right internal jugular vein DEVICE(S): 1.) 14 Lebanese dual lumen 15 cm Schon catheter PROCEDURE : 1. Ultrasound guided venipuncture. 2. Fluoroscopic guidance. 3. Central line placement. The risks, benefits and alternatives to the procedure were explained and verbal and written consent w as obtained. The site was prepped in sterile fashion. Full sterile technique was used, including ca p, mask, sterile gloves and gown and a large sterile sheet. Hand hygiene and 2% chlorhexidine prep w as utilized per protocol for cutaneous antisepsis with appropriate dry time for site. The skin and subcutaneous tissues were infiltrated with local anesthetic solution. A suitable site a kristin the vein was selected with ultrasound and fluoroscopic guidance. A small incision was made. Th e vein was accessed under direct ultrasound visualization using the micropuncture technique. The penelope ropuncture set was exchanged for a 0.035 wire. The tract was dilated. The catheter was advanced int o position under direct fluoroscopic visualization. The catheter was fixed in place with suture and a sterile dressing was applied. The patient tolerated the procedure well and there were no complications. CONCLUSION: Uncomplicated line placement as above. Connor Machado MD on June 11, 2016 at 8:45 Board Certified Radiologist. This report was verified electronically.
--- NOTE | 2016-06-11 09:56 | HHI.NPPN ---
Subjective Complaints: Obesity General Problems: Edema Renal Failure: Chronic, Acute Review of Systems General Constitutional: Fatigue Cardiovascular Cardiac: Edema, LOW Objective Data Data 06/10/16 06/11/16 19:00 07:00 Intake Total 480 ml 240 ml Output Total 800 ml 700 ml Balance -320 ml -460 ml Intake Oral 480 ml 240 ml Output Urine Total 800 ml 700 ml # Voids 3 Vital Signs Date Time Temp Pulse Resp B/P Pulse Ox O2 Delivery O2 Flow Rate FiO2 06/11/16 09:30 Room Air 21 06/11/16 08:00 99.0 83 20 148/84 93 06/11/16 07:50 93 21 06/11/16 04:00 98.7 82 20 128/65 95 06/11/16 00:00 98.5 83 18 142/64 92 06/10/16 21:30 Room Air 06/10/16 21:25 98.9 79 18 136/60 91 06/10/16 20:20 21 06/10/16 20:00 82 06/10/16 20:00 98.6 78 20 106/65 95 06/10/16 20:00 97 Room Air 06/10/16 20:00 82 06/10/16 19:00 78 06/10/16 18:00 77 06/10/16 17:00 82 06/10/16 16:00 75 20 121/68 95 06/10/16 16:00 75 06/10/16 15:00 74 06/10/16 14:00 74 06/10/16 13:00 82 06/10/16 12:00 98.3 94 18 116/66 94 06/10/16 12:00 94 06/10/16 11:00 75 06/10/16 10:00 78 -: 06/11/16 0549 06/11/16 0549 Drip Comment Bumex at 1 mg/hr Physical Exam General Appearance: Well Developed, Well Nourished, No Acute Distress, Comfortable Eyes Eye Exam: Pupils Equal Neck Neck Exam: Neck Supple Pulmonary Resp Exam: Clear Bilaterally, Breath Sounds Equal, Decreased Bases Cardiology CV Exam: Good Perfusion, Irregular Gastrointestinal/Abdomen GI Exam: Soft, Non-Tender, Bowel Sounds Present, Distended Genitourinary Exam: Clear Urine Musculoskeletal MS Exam: Joints Intact, Normal Tone Integumentary Skin Exam: Clear, Warm, Dry, Intact Extremeties Extremities Exam: Pedal Pulses Palpable, Pitting Edema, Dependent Edema Neurologic Neuro Exam: Alert, Awake, Oriented, Speech Clear, Moving All Extremities Psychiatric Psych Exam: Appropriate Responses Assessment/Plan Discussed Condition With: Patient Problem List: (1) CKD (chronic kidney disease) stage 3, GFR 30-59 ml/min Plan: Renal function not improving he was going to Lymphedema clinic that was helping with the swelling, which we discussed and we recommend him going back for services seen during hemodialysis Discussed proceeding of dialysis 4 L UF tolerating it well (2) CHF exacerbation Plan: monitor fluid volume status, on dialysis (3) HTN (hypertension) Plan: On ARB. We continue to monitor K and renal function with Losartan. Spironolactone was stopped (4) CAD (coronary artery disease) Plan: Previous coronary artery bypass graft No reports of chest pain Problem Qualifiers (1) CHF exacerbation: Qualified Code: I50.9 - Acute on chronic congestive heart failure, unspecified congestive heart failure type Marianna Mosher MD Jun 11, 2016 09:56 Marianna Mosher MD Jun 11, 2016 09:56
[2016-06-11] MEDS: GENTAMICIN SULFATE (DIALYSIS USE ONLY) 20 MG/2 ML VIAL IV PRN (10:49)
[2016-06-11] MEDS: EPOETIN ALFA 10,000 UNITS/ML VIAL IV PRN (10:49)
[2016-06-11] MEDS: HEPARIN SODIUM - IV 10,000 UNITS/10 ML VIAL PRN (10:50)
--- NOTE | 2016-06-11 11:13 | HHI.PR ---
Subjective Remarks Pt seen in dialysis Dr. Rich spoke with Dr. Mosher in HD unit today and thinks they will get 4L of fluid off of the pt today Pt without any new complaints. Vitals are stable. Objective Vitals Vital Signs Date Time Temp Pulse Resp B/P Pulse Ox O2 Delivery O2 Flow Rate FiO2 06/11/16 09:30 Room Air 21 06/11/16 08:00 99.0 83 20 148/84 93 06/11/16 07:50 93 21 06/11/16 04:00 98.7 82 20 128/65 95 06/11/16 00:00 98.5 83 18 142/64 92 06/10/16 21:30 Room Air 06/10/16 21:25 98.9 79 18 136/60 91 06/10/16 20:20 21 06/10/16 20:00 82 06/10/16 20:00 98.6 78 20 106/65 95 06/10/16 20:00 97 Room Air 06/10/16 20:00 82 06/10/16 19:00 78 06/10/16 18:00 77 06/10/16 17:00 82 06/10/16 16:00 75 20 121/68 95 06/10/16 16:00 75 06/10/16 15:00 74 06/10/16 14:00 74 06/10/16 13:00 82 06/10/16 12:00 98.3 94 18 116/66 94 06/10/16 12:00 94 06/10/16 06/10/16 06/11/16 15:00 23:00 07:00 Intake Total 720 ml Output Total 1150 ml 350 ml Balance -430 ml -350 ml Intake Oral 720 ml Output Urine Total 1150 ml 350 ml # Voids 3 Result Diagram: 06/11/16 0549 06/11/16 0549 Other Results Laboratory Tests Test 06/09/16 06/10/16 06/11/16 19:06 06:10 05:49 Sodium Level 137 MEQ/L 136 MEQ/L 138 MEQ/L Potassium Level 3.6 MEQ/L 3.7 MEQ/L 3.8 MEQ/L Chloride Level 95 MEQ/L 93 MEQ/L 95 MEQ/L Carbon Dioxide Level 33.3 MEQ/L 31.9 MEQ/L 33.0 MEQ/L Anion Gap 9 MEQ/L 11 MEQ/L 10 MEQ/L Blood Urea Nitrogen 30 MG/DL 31 MG/DL 32 MG/DL Creatinine 2.18 MG/DL 2.41 MG/DL 2.42 MG/DL Estimat Glomerular Filtration 36 ML/MIN 32 ML/MIN 32 ML/MIN Rate Random Glucose 94 MG/DL 99 MG/DL 86 MG/DL Calcium Level 9.2 MG/DL 9.3 MG/DL 9.3 MG/DL Magnesium Level 1.7 MG/DL 1.7 MG/DL 1.8 MG/DL Phosphorus Level 2.7 MG/DL White Blood Count 6.1 TH/MM3 Red Blood Count 3.16 MIL/MM3 Hemoglobin 9.0 GM/DL Hematocrit 27.9 % Mean Corpuscular Volume 88.3 FL Mean Corpuscular Hemoglobin 28.6 PG Mean Corpuscular Hemoglobin 32.4 % Concent Red Cell Distribution Width 15.7 % Platelet Count 191 TH/MM3 Mean Platelet Volume 9.3 FL Neutrophils (%) (Auto) 71.0 % Lymphocytes (%) (Auto) 15.4 % Monocytes (%) (Auto) 8.4 % Eosinophils (%) (Auto) 4.3 % Basophils (%) (Auto) 0.9 % Neutrophils # (Auto) 4.3 TH/MM3 Lymphocytes # (Auto) 0.9 TH/MM3 Monocytes # (Auto) 0.5 TH/MM3 Eosinophils # (Auto) 0.3 TH/MM3 Basophils # (Auto) 0.1 TH/MM3 CBC Comment DIFF FINAL Differential Comment Prothrombin Time 25.8 SEC Prothromb Time International 2.3 RATIO Ratio Imaging Last Impressions Renal Ultrasound 05/27/16 0000 Signed Impressions: Service Date/Time: Friday, May 27, 2016 14:59 - CONCLUSION: 1. Early/mild chronic medical renal disease suspected. 2. No obstructive uropathy or other acute abnormality seen. 3. Nonvisualization of the urinary bladder, presumably empty. Abimael Nunez MD Chest X-Ray 05/23/16 0002 Signed Impressions: Service Date/Time: April 00:27 - CONCLUSION: 1. Cardiomegaly with no evidence of pulmonary edema. 2. That is post median sternotomy. Shawn Martinez MD Objective Remarks General: NAD, AAOx3 Chest: CTA bilaterally Cardiac: Regular Abd: +BS, soft obese, nontender : Testicular edema is improving. Ext: Bilateral LE edema, improving A/P Problem List: (1) CHF exacerbation Status: Acute Plan: - Pt with CAD s/p 3v CABG in 2011 and A. fib presented with SOB, worsening LE edema with breakdown of lower ext skin and severe scrotal edema. Pt says he was going to lymphedema clinic for wraps and therapy in past. - Prior to admission his pcp doubled his Lasix last week w/out improvement. - He is noncompliant with CPAP for quite some time. - Pt presented with acute systolic CHF exacerbation - 2D echo (05/23/16) - Estimated EF 45-50%, no regional wall motion abnormalities - Mild to moderate tricuspid regurgitation - PA peak pressure 34mmHg - Pt's swelling seems multifactorial: CHF, untreated SUKUMAR, venous insufficiency and lymphedema, CKD, also stopped his Norvasc - Pt had been on a trial of IV Bumex gtt. The Bumex was increased to 1 mg/hr on 06/08 from .5mg/hr - on 06/10 his Creatinine bumped to 2.41. The Bumex gtt was back down to 0.5mL/ hr a - Case discussed between Dr. Rich and Dr. Mosher and it was decided to do a trial of HD. - Pt was agreeable. He had Vascath placed on 06/10 and first round of HD on . - Monitor renal function - Pt will be referred back to lymphedema clinic upon d/c - US lower ext's (115) was negative for DVT but did show a multiloculated Soria' s cyst. Right knee xray noted marked joint space narrowing medially with small osteophytes. (2) Atrial fibrillation Status: Chronic Plan: - Cont. BB - Pt is currently anticoagulated on Coumadin 3mg po daily (3) CAD (coronary artery disease) Status: Chronic Plan: - s/p cabg x 3 2011. - Pt had V tach noted on telemetry - Cardiology following -tenzin neg for ischemia (4) HTN (hypertension) Status: Chronic Plan: - Cont home meds - Monitor (5) CKD (chronic kidney disease) stage 3, GFR 30-59 ml/min Status: Chronic Plan: - See above. Assessment and Plan Patient examined. Assessment and plan formulated with Vanda [place] PA-C. I agree with the above. Problem Qualifiers (1) CHF exacerbation: Qualified Code: I50.9 - Acute on chronic congestive heart failure, unspecified congestive heart failure type Vanda Vaca Jun 11, 2016 11:13 Michael Rich DO Jun 20, 2016 22:14
[2016-06-11] MEDS: oxyCODONE/ACETAMINOPHEN 7.5 MG/325 MG TAB PO PRN (13:21)
[2016-06-11] MEDS: SPIRONOLACTONE 25 MG TAB PO SCH (13:21)
[2016-06-11] MEDS: POTASSIUM CL 40 MEQ/30 ML LIQ UDC PO SCH ×2 (13:21→20:59)
[2016-06-11] MEDS: ALLOPURINOL 100 MG TAB PO SCH (13:21)
[2016-06-11] MEDS: SODIUM CHLORIDE 0.9% FLUSH 5 ML FLUSH IVF SCH ×2 (13:22→20:55)
[2016-06-11] MEDS: PANTOPRAZOLE SOD 40 MG DELAYED RELEASE TAB PO SCH (13:22)
[2016-06-11] MEDS: METOPROLOL SUCCINATE 50 MG EXTENDED RELEASE TAB PO SCH (13:22)
[2016-06-11] MEDS: WARFARIN SOD 3 MG TAB PO SCH ×2 (16:20→16:22)
[2016-06-11] MEDS: TAMSULOSIN HCL 0.4 MG CAP PO SCH (20:57)
[2016-06-11] MEDS: SENNOSIDES 8.6 MG TAB PO SCH (20:57)
[2016-06-11] MEDS: ATORVASTATIN 20 MG TAB PO SCH (20:58)
[2016-06-11] MEDS: LOSARTAN 50 MG TAB PO SCH (20:58)
[2016-06-12] VITALS (8 sets, daily range): BP systolic 91–145; BP diastolic 52–74; PULSE 71–90; RESP 18–20; TEMP 97.5–98.2; O2SAT 88–97
[2016-06-12] MEDS: oxyCODONE/ACETAMINOPHEN 7.5 MG/325 MG TAB PO PRN ×2 (00:19→21:43)
[2016-06-12] MEDS: SODIUM CHLOR 0.9% 1000 ML INJ 1,000 ML IV PRN ×2 (08:29)
[2016-06-12] MEDS: HEPARIN SODIUM - IV 10,000 UNITS/10 ML VIAL PRN (08:29)
[2016-06-12] MEDS: GENTAMICIN SULFATE (DIALYSIS USE ONLY) 20 MG/2 ML VIAL IV PRN (08:30)
[2016-06-12] MEDS: SODIUM CHLORIDE 0.9% FLUSH 5 ML FLUSH IVF PRN (08:30)
[2016-06-12] MEDS: EPOETIN ALFA 10,000 UNITS/ML VIAL IV PRN (08:30)
[2016-06-12 12:06] LABS: BICARBONATE 32.6 MEQ/L (21.0-32.0); MAGNESIUM 1.6 MG/DL (1.5-2.5); POTASSIUM 3.8 MEQ/L (3.5-5.1)
[2016-06-12] MEDS: ALLOPURINOL 100 MG TAB PO SCH (12:50)
[2016-06-12] MEDS: POTASSIUM CL 40 MEQ/30 ML LIQ UDC PO SCH ×3 (12:50→21:33)
[2016-06-12] MEDS: PANTOPRAZOLE SOD 40 MG DELAYED RELEASE TAB PO SCH (12:50)
[2016-06-12] MEDS: SODIUM CHLORIDE 0.9% FLUSH 5 ML FLUSH IVF SCH ×2 (12:50→21:33)
[2016-06-12] MEDS: METOPROLOL SUCCINATE 50 MG EXTENDED RELEASE TAB PO SCH (12:50)
[2016-06-12] MEDS: SPIRONOLACTONE 25 MG TAB PO SCH (12:50)
--- NOTE | 2016-06-12 14:15 | HHI.PR ---
Subjective Remarks feeling much more comfortable with much less edema in LEs and scrotum. Objective Vitals Vital Signs Date Time Temp Pulse Resp B/P Pulse Ox O2 Delivery O2 Flow Rate FiO2 06/12/16 14:00 Room Air 21 06/12/16 12:00 98.2 90 20 91/52 97 06/12/16 08:00 97.5 89 20 135/71 91 06/12/16 04:00 98.0 77 20 110/56 97 06/12/16 00:00 98.2 85 20 145/74 95 06/11/16 21:00 Room Air 06/11/16 20:00 71 06/11/16 20:00 71 06/11/16 20:00 98.5 80 20 102/50 95 06/11/16 16:00 98.6 86 18 102/55 92 06/11/16 06/11/16 06/12/16 15:00 23:00 07:00 Intake Total 480 ml 220 ml 220 ml Output Total 4175 ml 400 ml Balance -3695 ml 220 ml -180 ml Intake Oral 480 ml 220 ml 220 ml Output Urine Total 375 ml 400 ml Hemodialysis 3800 ml # Voids 6 # Bowel Movements 0 Result Diagram: 06/11/16 0549 06/12/16 1105 Imaging Last Impressions Chest X-Ray 06/10/16 1620 Signed Impressions: Service Date/Time: Friday, June 10, 2016 16:24 - CONCLUSION: VasCath in good position. Da Byrnes MD FACR Catheter Placement X-Ray 06/10/16 0000 Signed Impressions: Service Date/Time: Friday, June 10, 2016 16:15 - CONCLUSION: Uncomplicated line placement as above. Connor Machado MD Lower Extremity Ultrasound 06/09/16 0000 Signed Impressions: Service Date/Time: Thursday, June 09, 2016 09:19 - CONCLUSION: Normal examination. Multiloculated Soria's cyst Trevor Serrano MD Knee X-Ray 06/09/16 0000 Signed Impressions: Service Date/Time: Thursday, June 09, 2016 08:32 - CONCLUSION: Marked joint space narrowing medially. No acute fracture Trevor Serrano MD Myocardial Perfusion Scan Nuc Med 05/28/16 0000 Signed Impressions: Service Date/Time: Saturday, May 28, 2016 13:27 - CONCLUSION: 1. Fixed perfusion defect in the inferolateral wall characteristic of prior myocardial infarction. Findings similar to 2012 exam. RISK CATEGORY: High (>3%% Annual Mortality Rate) Jareth Moreno MD Renal Ultrasound 05/27/16 0000 Signed Impressions: Service Date/Time: Friday, May 27, 2016 14:59 - CONCLUSION: 1. Early/mild chronic medical renal disease suspected. 2. No obstructive uropathy or other acute abnormality seen. 3. Nonvisualization of the urinary bladder, presumably empty. Abimael Nunez MD Objective Remarks General: NAD, AAOx3 Chest: CTA bilaterally Cardiac: Regular Abd: +BS, soft obese, nontender : less testicular edema Ext: dramatic improvement of LE edema A/P Problem List: (1) CHF exacerbation Status: Acute Plan: - Pt with CAD s/p 3v CABG in 2011 and A. fib presented with SOB, worsening LE edema with breakdown of lower ext skin and severe scrotal edema. Pt says he was going to lymphedema clinic for wraps and therapy in past. - Prior to admission his pcp doubled his Lasix last week w/out improvement. - He is noncompliant with CPAP for quite some time. - Pt presented with acute systolic CHF exacerbation - 2D echo (05/23/16) - Estimated EF 45-50%, no regional wall motion abnormalities - Mild to moderate tricuspid regurgitation - PA peak pressure 34mmHg - Pt's swelling seems multifactorial: CHF, untreated SUKUAMR, venous insufficiency and lymphedema, CKD, also stopped his Norvasc - Pt had placement of VasCath 06/10/16 - pt underwent HD on 06/11 and 06/[address] Mosher. Pt will undergo next HD 06/14 (2) Atrial fibrillation Status: Chronic Plan: - Cont. BB - Pt is currently anticoagulated on Coumadin 3mg po daily (3) CAD (coronary artery disease) Status: Chronic Plan: - s/p cabg x 3 2011. - Pt had V tach noted on telemetry - Cardiology following -tenzin neg for ischemia (4) HTN (hypertension) Status: Chronic Plan: - Cont home meds - Monitor (5) CKD (chronic kidney disease) stage 3, GFR 30-59 ml/min Status: Chronic Plan: - See above. Problem Qualifiers (1) CHF exacerbation: Qualified Code: I50.9 - Acute on chronic congestive heart failure, unspecified congestive heart failure type Michael Rich DO Jun 12, 2016 14:15
[2016-06-12] MEDS: WARFARIN SOD 3 MG TAB PO SCH (16:31)
--- NOTE | 2016-06-12 17:42 | HHI.NPPN ---
Subjective Complaints: Obesity General Problems: Edema Renal Failure: Chronic, Acute Review of Systems General Constitutional: Fatigue Cardiovascular Cardiac: Edema, LOW Objective Data Data 06/11/16 06/12/16 18:59 06:59 Intake Total 480 ml 440 ml Output Total 4175 ml 400 ml Balance -3695 ml 40 ml Intake Oral 480 ml 440 ml Output Urine Total 375 ml 400 ml Hemodialysis 3800 ml # Voids 6 # Bowel Movements 0 Vital Signs Date Time Temp Pulse Resp B/P Pulse Ox O2 Delivery O2 Flow Rate FiO2 06/12/16 16:00 98.0 90 20 93/52 88 06/12/16 14:00 Room Air 21 06/12/16 12:00 98.2 90 20 91/52 97 06/12/16 08:00 97.5 89 20 135/71 91 06/12/16 04:00 98.0 77 20 110/56 97 06/12/16 00:00 98.2 85 20 145/74 95 06/11/16 21:00 Room Air 06/11/16 20:00 71 06/11/16 20:00 71 06/11/16 20:00 98.5 80 20 102/50 95 -: 06/11/16 0549 06/12/16 1105 Drip Comment Bumex at 1 mg/hr Physical Exam General Appearance: Well Developed, Well Nourished, No Acute Distress, Comfortable Eyes Eye Exam: Pupils Equal Neck Neck Exam: Neck Supple Pulmonary Resp Exam: Clear Bilaterally, Breath Sounds Equal, Decreased Bases Cardiology CV Exam: Good Perfusion, Irregular Gastrointestinal/Abdomen GI Exam: Soft, Non-Tender, Bowel Sounds Present, Distended Genitourinary Exam: Clear Urine Musculoskeletal MS Exam: Joints Intact, Normal Tone Integumentary Skin Exam: Clear, Warm, Dry, Intact Extremeties Extremities Exam: Pedal Pulses Palpable, Pitting Edema, Dependent Edema Neurologic Neuro Exam: Alert, Awake, Oriented, Speech Clear, Moving All Extremities Psychiatric Psych Exam: Appropriate Responses Assessment/Plan Discussed Condition With: Patient Problem List: (1) CKD (chronic kidney disease) stage 3, GFR 30-59 ml/min Plan: Renal function has declined not responding to Bumex on hemodialysis done early 2 L removed tolerated it well continue supportive care (2) CHF exacerbation Plan: monitor fluid volume status, con dialysis (3) HTN (hypertension) Plan: On ARB. We continue to monitor K and renal function with Losartan. Spironolactone was stopped (4) CAD (coronary artery disease) Plan: Previous coronary artery bypass graft No reports of chest pain Problem Qualifiers (1) CHF exacerbation: Qualified Code: I50.9 - Acute on chronic congestive heart failure, unspecified congestive heart failure type Marianna Mosher MD Jun 12, 2016 17:42 Marianna Mosher MD Jun 12, 2016 17:42
[2016-06-12] MEDS: TAMSULOSIN HCL 0.4 MG CAP PO SCH (21:32)
[2016-06-12] MEDS: SENNOSIDES 8.6 MG TAB PO SCH (21:32)
[2016-06-12] MEDS: ATORVASTATIN 20 MG TAB PO SCH (21:32)
[2016-06-12] MEDS: LOSARTAN 50 MG TAB PO SCH (21:32)
[2016-06-13 00:10] VITALS: BP 102/58; PULSE 65; RESP 18; TEMP 98.1; O2SAT 95
[2016-06-13 04:26] VITALS: BP 119/58; PULSE 78; RESP 18; TEMP 98.7; O2SAT 98
[2016-06-13 06:23] LABS: INTERNATIONAL NORMALIZED RATIO 2.3 RATIO; PROTHROMBIN TIME - PATIENT 25.8 SEC (9.8-11.6)
[2016-06-13 06:48] LABS: BICARBONATE 31.2 MEQ/L (21.0-32.0); POTASSIUM 4.2 MEQ/L (3.5-5.1)
[2016-06-13 08:00] VITALS: BP 131/57; PULSE 85; RESP 18; TEMP 98; O2SAT 97
[2016-06-13] MEDS: PANTOPRAZOLE SOD 40 MG DELAYED RELEASE TAB PO SCH (09:22)
[2016-06-13] MEDS: SPIRONOLACTONE 25 MG TAB PO SCH (09:23)
[2016-06-13] MEDS: POTASSIUM CL 40 MEQ/30 ML LIQ UDC PO SCH ×3 (09:23→21:58)
[2016-06-13] MEDS: METOPROLOL SUCCINATE 50 MG EXTENDED RELEASE TAB PO SCH (09:23)
[2016-06-13] MEDS: ALLOPURINOL 100 MG TAB PO SCH (09:23)
[2016-06-13] MEDS: SODIUM CHLORIDE 0.9% FLUSH 5 ML FLUSH IVF SCH ×2 (09:24→21:00)
[2016-06-13 12:03] VITALS: BP 116/62; PULSE 80; RESP 24; TEMP 98.5; O2SAT 95
--- NOTE | 2016-06-13 13:27 | HHI.PR ---
Subjective Remarks No new complaints. Objective Vitals Vital Signs Date Time Temp Pulse Resp B/P Pulse Ox O2 Delivery O2 Flow Rate FiO2 06/13/16 12:03 98.5 80 24 116/62 95 06/13/16 08:00 98.0 85 18 131/57 97 06/13/16 04:26 98.7 78 18 119/58 98 06/13/16 00:10 98.1 65 18 102/58 95 06/12/16 20:00 71 06/12/16 20:00 98.2 77 18 110/60 96 06/12/16 19:45 Room Air 06/12/16 16:00 98.0 90 20 93/52 88 06/12/16 14:00 Room Air 21 06/12/16 06/12/16 06/13/16 15:00 23:00 07:00 Intake Total 240 ml Output Total 2200 ml 100 ml Balance -2200 ml 140 ml Intake Oral 240 ml Output Urine Total 200 ml 100 ml Hemodialysis 2000 ml # Bowel Movements 0 Result Diagram: 06/11/16 0549 06/13/16 0534 Imaging Last Impressions Chest X-Ray 06/10/16 1620 Signed Impressions: Service Date/Time: Friday, June 10, 2016 16:24 - CONCLUSION: VasCath in good position. Da Byrnes MD FACR Catheter Placement X-Ray 06/10/16 0000 Signed Impressions: Service Date/Time: Friday, June 10, 2016 16:15 - CONCLUSION: Uncomplicated line placement as above. Connor Machado MD Lower Extremity Ultrasound 06/09/16 0000 Signed Impressions: Service Date/Time: Thursday, June 09, 2016 09:19 - CONCLUSION: Normal examination. Multiloculated Soria's cyst Trevor Serrano MD Knee X-Ray 06/09/16 0000 Signed Impressions: Service Date/Time: Thursday, June 09, 2016 08:32 - CONCLUSION: Marked joint space narrowing medially. No acute fracture Trevor Serrano MD Myocardial Perfusion Scan Nuc Med 05/28/16 0000 Signed Impressions: Service Date/Time: Saturday, May 28, 2016 13:27 - CONCLUSION: 1. Fixed perfusion defect in the inferolateral wall characteristic of prior myocardial infarction. Findings similar to 2012 exam. RISK CATEGORY: High (>3%% Annual Mortality Rate) Jareth Moreno MD Renal Ultrasound 05/27/16 0000 Signed Impressions: Service Date/Time: Friday, May 27, 2016 14:59 - CONCLUSION: 1. Early/mild chronic medical renal disease suspected. 2. No obstructive uropathy or other acute abnormality seen. 3. Nonvisualization of the urinary bladder, presumably empty. Abimael Nunez MD Objective Remarks General: NAD, AAOx3 Chest: CTA bilaterally Cardiac: Regular Abd: +BS, soft obese, nontender : less testicular edema Ext: dramatic improvement of LE edema A/P Problem List: (1) CHF exacerbation Status: Acute Plan: - Pt with CAD s/p 3v CABG in 2011 and A. fib presented with SOB, worsening LE edema with breakdown of lower ext skin and severe scrotal edema. Pt says he was going to lymphedema clinic for wraps and therapy in past. - Prior to admission his pcp doubled his Lasix last week w/out improvement. - He is noncompliant with CPAP for quite some time. - Pt presented with acute systolic CHF exacerbation - 2D echo (05/23/16) - Estimated EF 45-50%, no regional wall motion abnormalities - Mild to moderate tricuspid regurgitation - PA peak pressure 34mmHg - Pt's swelling seems multifactorial: CHF, untreated SUKUMAR, venous insufficiency and lymphedema, CKD, also stopped his Norvasc - Pt had placement of VasCath 06/10/16 - pt underwent HD on 06/11 and 06/[address] Mosher. Pt will undergo next HD 06/14 - Renal function declining - repeat BMP in AM (2) Atrial fibrillation Status: Chronic Plan: - Cont. BB - Pt is currently anticoagulated on Coumadin 3mg po daily (3) CAD (coronary artery disease) Status: Chronic Plan: - s/p cabg x 3 2011. - Pt had V tach noted on telemetry - Cardiology following -tenzin neg for ischemia (4) HTN (hypertension) Status: Chronic Plan: - Cont home meds - Monitor (5) CKD (chronic kidney disease) stage 3, GFR 30-59 ml/min Status: Chronic Plan: - See above. Assessment and Plan Patient examined. Assessment and plan formulated with Vanda Vaca PA-C. I agree with the above. Problem Qualifiers (1) CHF exacerbation: Qualified Code: I50.9 - Acute on chronic congestive heart failure, unspecified congestive heart failure type Michael Rich DO Jun 13, 2016 13:27
--- NOTE | 2016-06-13 14:01 | HHI.NPPN ---
Subjective Complaints: Obesity General Problems: Edema Renal Failure: Chronic, Acute Review of Systems General Constitutional: Fatigue Cardiovascular Cardiac: Edema, LOW Objective Data Data 06/12/16 06/13/16 19:00 07:00 Intake Total 240 ml Output Total 2200 ml 100 ml Balance -2200 ml 140 ml Intake Oral 240 ml Output Urine Total 200 ml 100 ml Hemodialysis 2000 ml # Bowel Movements 0 Vital Signs Date Time Temp Pulse Resp B/P Pulse Ox O2 Delivery O2 Flow Rate FiO2 06/13/16 12:03 98.5 80 24 116/62 95 06/13/16 08:00 98.0 85 18 131/57 97 06/13/16 04:26 98.7 78 18 119/58 98 06/13/16 00:10 98.1 65 18 102/58 95 06/12/16 20:00 71 06/12/16 20:00 98.2 77 18 110/60 96 06/12/16 19:45 Room Air 06/12/16 16:00 98.0 90 20 93/52 88 06/12/16 14:00 Room Air 21 -: 06/11/16 0549 06/13/16 0534 Drip Comment Bumex at 1 mg/hr Physical Exam General Appearance: Well Developed, Well Nourished, No Acute Distress, Comfortable Eyes Eye Exam: Pupils Equal Neck Neck Exam: Neck Supple Pulmonary Resp Exam: Clear Bilaterally, Breath Sounds Equal, Decreased Bases Cardiology CV Exam: Good Perfusion, Irregular Gastrointestinal/Abdomen GI Exam: Soft, Non-Tender, Bowel Sounds Present, Distended Genitourinary Exam: Clear Urine Musculoskeletal MS Exam: Joints Intact, Normal Tone Integumentary Skin Exam: Clear, Warm, Dry, Intact Extremeties Extremities Exam: Pedal Pulses Palpable, Pitting Edema, Dependent Edema Neurologic Neuro Exam: Alert, Awake, Oriented, Speech Clear, Moving All Extremities Psychiatric Psych Exam: Appropriate Responses Assessment/Plan Discussed Condition With: Patient Problem List: (1) CKD (chronic kidney disease) stage 3, GFR 30-59 ml/min Plan: 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 Rich continue supportive care (2) CHF exacerbation Plan: monitor fluid volume status,on dialysis (3) HTN (hypertension) Plan: On ARB. We continue to monitor K and renal function with Losartan. Spironolactone was stopped (4) CAD (coronary artery disease) Plan: Previous coronary artery bypass graft No reports of chest pain Problem Qualifiers (1) CHF exacerbation: Qualified Code: I50.9 - Acute on chronic congestive heart failure, unspecified congestive heart failure type Marianna Mosher MD Jun 13, 2016 14:01 Marianna Mosher MD Jun 13, 2016 14:01
[2016-06-13] MEDS ORDERED: VANCOMYCIN INJ 1,000 MG in SODIUM CHLOR 0.9% 250 ML INJ 250 ML IV SCH (15:45)
[2016-06-13 16:03] VITALS: BP 118/62; PULSE 82; RESP 22; TEMP 98.6; O2SAT 98
[2016-06-13] MEDS: PHYTONADIONE 5 MG TAB PO SCH (18:53)
[2016-06-13 20:00] VITALS: BP 115/62; PULSE 79; PULSE 85; RESP 20; TEMP 98.4; O2SAT 96
[2016-06-13] MEDS: SENNOSIDES 8.6 MG TAB PO SCH ×2 (21:00→21:57)
[2016-06-13] MEDS: TAMSULOSIN HCL 0.4 MG CAP PO SCH (21:57)
[2016-06-13] MEDS: LOSARTAN 50 MG TAB PO SCH (21:57)
[2016-06-13] MEDS: ATORVASTATIN 20 MG TAB PO SCH (21:57)
[2016-06-13] MEDS: oxyCODONE/ACETAMINOPHEN 7.5 MG/325 MG TAB PO PRN (23:33)
[2016-06-14] VITALS (8 sets, daily range): BP systolic 98–136; BP diastolic 52–68; PULSE 65–88; RESP 20–24; TEMP 97.8–98.5; O2SAT 94–98
[2016-06-14 06:56] LABS: INTERNATIONAL NORMALIZED RATIO 2.2 RATIO; PROTHROMBIN TIME - PATIENT 25.6 SEC (9.8-11.6)
[2016-06-14] MEDS: PANTOPRAZOLE SOD 40 MG DELAYED RELEASE TAB PO SCH (09:33)
[2016-06-14] MEDS: PHYTONADIONE 5 MG TAB PO SCH (09:34)
[2016-06-14] MEDS: SPIRONOLACTONE 25 MG TAB PO SCH (09:34)
[2016-06-14] MEDS: METOPROLOL SUCCINATE 50 MG EXTENDED RELEASE TAB PO SCH (09:34)
[2016-06-14] MEDS: ALLOPURINOL 100 MG TAB PO SCH (09:34)
[2016-06-14] MEDS: POTASSIUM CL 40 MEQ/30 ML LIQ UDC PO SCH ×2 (09:34→20:46)
[2016-06-14] MEDS: SODIUM CHLORIDE 0.9% FLUSH 5 ML FLUSH IVF SCH ×2 (09:35→20:45)
--- NOTE | 2016-06-14 13:45 | HHI.NPPN ---
Subjective Complaints: Obesity General Problems: Edema Renal Failure: Chronic, Acute Review of Systems General Constitutional: Fatigue Cardiovascular Cardiac: Edema, LOW Objective Data Data 06/13/16 06/14/16 19:00 07:00 Intake Total 480 ml 842 ml Output Total 600 ml 50 ml Balance -120 ml 792 ml Intake Oral 480 ml 840 ml IV Total 2 ml Output Urine Total 600 ml 50 ml # Bowel Movements 1 0 Vital Signs Date Time Temp Pulse Resp B/P Pulse Ox O2 Delivery O2 Flow Rate FiO2 06/14/16 12:03 97.9 69 24 116/56 94 06/14/16 08:04 98.2 70 24 112/55 94 06/14/16 08:00 Room Air 06/14/16 04:00 98.2 71 20 117/56 98 06/14/16 00:22 98.5 80 20 122/57 98 06/13/16 21:38 Room Air 06/13/16 20:00 98.4 79 20 115/62 96 06/13/16 20:00 85 06/13/16 16:03 98.6 82 22 118/62 98 -: 06/11/16 0549 06/13/16 0534 Drip Comment Bumex at 1 mg/hr Physical Exam General Appearance: Well Developed, Well Nourished, No Acute Distress, Comfortable Eyes Eye Exam: Pupils Equal Neck Neck Exam: Neck Supple Pulmonary Resp Exam: Clear Bilaterally, Breath Sounds Equal, Decreased Bases Cardiology CV Exam: Good Perfusion, Irregular Gastrointestinal/Abdomen GI Exam: Soft, Non-Tender, Bowel Sounds Present, Distended Genitourinary Exam: Clear Urine Musculoskeletal MS Exam: Joints Intact, Normal Tone Integumentary Skin Exam: Clear, Warm, Dry, Intact Extremeties Extremities Exam: Pedal Pulses Palpable, Pitting Edema, Dependent Edema Neurologic Neuro Exam: Alert, Awake, Oriented, Speech Clear, Moving All Extremities Psychiatric Psych Exam: Appropriate Responses Assessment/Plan Discussed Condition With: Patient Problem List: (1) CKD (chronic kidney disease) stage 3, GFR 30-59 ml/min Plan: Renal function not improving he was going to Lymphedema clinic that was helping with the swelling, which we discussed and we recommend him going back for services hemodialysis planned for today (2) CHF exacerbation Plan: monitor fluid volume status, on dialysis (3) HTN (hypertension) Plan: On ARB. We continue to monitor K and renal function with Losartan. Spironolactone was stopped (4) CAD (coronary artery disease) Plan: Previous coronary artery bypass graft No reports of chest pain Problem Qualifiers (1) CHF exacerbation: Qualified Code: I50.9 - Acute on chronic congestive heart failure, unspecified congestive heart failure type Marianna Mosher MD Jun 14, 2016 13:45
[2016-06-14] MEDS: SODIUM CHLOR 0.9% 1000 ML INJ 1,000 ML IV PRN (14:32)
[2016-06-14] MEDS: HEPARIN SODIUM - IV 10,000 UNITS/10 ML VIAL PRN (14:32)
[2016-06-14] MEDS: EPOETIN ALFA 10,000 UNITS/ML VIAL IV PRN (14:32)
[2016-06-14] MEDS: GENTAMICIN SULFATE (DIALYSIS USE ONLY) 20 MG/2 ML VIAL IV PRN (14:34)
--- NOTE | 2016-06-14 19:57 | HHI.PR ---
Subjective Remarks No new complaints. Objective Vitals Vital Signs Date Time Temp Pulse Resp B/P Pulse Ox O2 Delivery O2 Flow Rate FiO2 06/14/16 16:04 97.8 88 22 136/68 96 06/14/16 12:03 97.9 69 24 116/56 94 06/14/16 08:08 65 06/14/16 08:04 98.2 70 24 112/55 94 06/14/16 08:00 Room Air 06/14/16 04:00 98.2 71 20 117/56 98 06/14/16 00:22 98.5 80 20 122/57 98 06/13/16 21:38 Room Air 06/13/16 20:00 98.4 79 20 115/62 96 06/13/16 20:00 85 06/13/16 06/13/16 06/14/16 15:00 23:00 07:00 Intake Total 480 ml 362 ml 480 ml Output Total 600 ml 50 ml Balance -120 ml 362 ml 430 ml Intake Oral 480 ml 360 ml 480 ml IV Total 2 ml Output Urine Total 600 ml 50 ml # Bowel Movements 1 0 0 Result Diagram: 06/11/16 0549 06/13/16 0534 Imaging Last Impressions Chest X-Ray 06/10/16 1620 Signed Impressions: Service Date/Time: Friday, June 10, 2016 16:24 - CONCLUSION: VasCath in good position. Da Byrnes MD FACR Catheter Placement X-Ray 06/10/16 0000 Signed Impressions: Service Date/Time: Friday, June 10, 2016 16:15 - CONCLUSION: Uncomplicated line placement as above. Connor Machado MD Lower Extremity Ultrasound 06/09/16 0000 Signed Impressions: Service Date/Time: Thursday, June 09, 2016 09:19 - CONCLUSION: Normal examination. Multiloculated Soria's cyst Trevor Serrano MD Knee X-Ray 06/09/16 0000 Signed Impressions: Service Date/Time: Thursday, June 09, 2016 08:32 - CONCLUSION: Marked joint space narrowing medially. No acute fracture Trevor Serrano MD Myocardial Perfusion Scan Nuc Med 05/28/16 0000 Signed Impressions: Service Date/Time: Saturday, May 28, 2016 13:27 - CONCLUSION: 1. Fixed perfusion defect in the inferolateral wall characteristic of prior myocardial infarction. Findings similar to 2012 exam. RISK CATEGORY: High (>3%% Annual Mortality Rate) Jareth Moreno MD Renal Ultrasound 05/27/16 0000 Signed Impressions: Service Date/Time: Friday, May 27, 2016 14:59 - CONCLUSION: 1. Early/mild chronic medical renal disease suspected. 2. No obstructive uropathy or other acute abnormality seen. 3. Nonvisualization of the urinary bladder, presumably empty. Abimael Nunez MD Objective Remarks General: NAD, AAOx3 Chest: CTA bilaterally Cardiac: Regular Abd: +BS, soft obese, nontender : less testicular edema Ext: dramatic improvement of LE edema A/P Problem List: (1) CHF exacerbation Status: Acute Plan: - Pt with CAD s/p 3v CABG in 2011 and A. fib presented with SOB, worsening LE edema with breakdown of lower ext skin and severe scrotal edema. Pt says he was going to lymphedema clinic for wraps and therapy in past. - Prior to admission his pcp doubled his Lasix last week w/out improvement. - He is noncompliant with CPAP for quite some time. - Pt presented with acute systolic CHF exacerbation - 2D echo (05/23/16) - Estimated EF 45-50%, no regional wall motion abnormalities - Mild to moderate tricuspid regurgitation - PA peak pressure 34mmHg - Pt's swelling seems multifactorial: CHF, untreated SUKUMAR, venous insufficiency and lymphedema, CKD, also stopped his Norvasc - Pt had placement of VasCath 06/10/16 - pt underwent HD on 06/11,06/12, 06/14, and next HD 06/17/16 - Renal function declining - anticipate discharge to SNF in the next 3-5 days, once outpt HD arrangements can be made (2) Atrial fibrillation Status: Chronic Plan: - Cont. BB - Pt is currently anticoagulated on Coumadin 3mg po daily (3) CAD (coronary artery disease) Status: Chronic Plan: - s/p cabg x 3 2011. - Pt had V tach noted on telemetry - Cardiology following -tenzin neg for ischemia (4) HTN (hypertension) Status: Chronic Plan: - Cont home meds - Monitor (5) CKD (chronic kidney disease) stage 3, GFR 30-59 ml/min Status: Chronic Plan: - See above. Assessment and Plan Patient examined. Assessment and plan formulated with Vanda Vaca PA-C. I agree with the above. Problem Qualifiers (1) CHF exacerbation: Qualified Code: I50.9 - Acute on chronic congestive heart failure, unspecified congestive heart failure type Michael Rich DO Jun 14, 2016 19:56
[2016-06-14] MEDS: LOSARTAN 50 MG TAB PO SCH (20:46)
[2016-06-14] MEDS: SENNOSIDES 8.6 MG TAB PO SCH (20:46)
[2016-06-14] MEDS: ATORVASTATIN 20 MG TAB PO SCH (20:46)
[2016-06-14] MEDS: TAMSULOSIN HCL 0.4 MG CAP PO SCH (20:46)
[2016-06-14] MEDS: oxyCODONE/ACETAMINOPHEN 7.5 MG/325 MG TAB PO PRN (23:18)
[2016-06-15] VITALS (7 sets, daily range): BP systolic 99–141; BP diastolic 50–78; PULSE 60–97; RESP 18–20; TEMP 96.6–98.5; O2SAT 95–96
[2016-06-15] MEDS: SODIUM CHLORIDE 0.9% FLUSH 5 ML FLUSH IVF SCH ×2 (08:53→21:50)
[2016-06-15] MEDS: POTASSIUM CL 40 MEQ/30 ML LIQ UDC PO SCH (08:54)
[2016-06-15] MEDS: PANTOPRAZOLE SOD 40 MG DELAYED RELEASE TAB PO SCH (08:54)
[2016-06-15] MEDS: ALLOPURINOL 100 MG TAB PO SCH (08:55)
[2016-06-15] MEDS: METOPROLOL SUCCINATE 50 MG EXTENDED RELEASE TAB PO SCH (08:55)
[2016-06-15] MEDS: SPIRONOLACTONE 25 MG TAB PO SCH (08:55)
[2016-06-15] MEDS: PHYTONADIONE 5 MG TAB PO SCH (08:55)
--- NOTE | 2016-06-15 16:14 | HHI.NPPN ---
Subjective Complaints: Obesity General Problems: Edema Renal Failure: Chronic, Acute Additional Remarks No acute complaints Review of Systems General Constitutional: Fatigue Cardiovascular Cardiac: Edema, LOW Objective Data Data 06/14/16 06/15/16 19:00 07:00 Intake Total 240 ml 122 ml Output Total 2000 ml 25 ml Balance -1760 ml 97 ml Intake Oral 240 ml 120 ml IV Total 2 ml Output Urine Total 25 ml Hemodialysis 2000 ml # Voids 5 0 # Bowel Movements 2 Vital Signs Date Time Temp Pulse Resp B/P Pulse Ox O2 Delivery O2 Flow Rate FiO2 06/15/16 13:54 Room Air 06/15/16 12:00 97.6 97 18 117/78 95 06/15/16 09:40 Room Air 06/15/16 09:28 62 06/15/16 08:00 98.0 72 18 141/71 95 06/15/16 00:00 98.5 73 20 99/50 96 06/14/16 20:45 Room Air 06/14/16 20:10 82 06/14/16 20:00 98.2 77 20 98/52 95 -: 06/11/16 0549 06/13/16 0534 Drip Comment Bumex at 1 mg/hr Physical Exam General Appearance: Well Developed, Well Nourished, No Acute Distress, Comfortable Eyes Eye Exam: Pupils Equal Neck Neck Exam: Neck Supple Pulmonary Resp Exam: Clear Bilaterally, Breath Sounds Equal, Decreased Bases Cardiology CV Exam: Good Perfusion, Irregular Gastrointestinal/Abdomen GI Exam: Soft, Non-Tender, Bowel Sounds Present, Distended Genitourinary Exam: Clear Urine Musculoskeletal MS Exam: Joints Intact, Normal Tone Integumentary Skin Exam: Clear, Warm, Dry, Intact Extremeties Extremities Exam: Pedal Pulses Palpable, Pitting Edema, Dependent Edema Neurologic Neuro Exam: Alert, Awake, Oriented, Speech Clear, Moving All Extremities Psychiatric Psych Exam: Appropriate Responses Assessment/Plan Discussed Condition With: Patient Problem List: (1) CKD (chronic kidney disease) stage 3, GFR 30-59 ml/min Plan: Renal function not improving Dialysis done Friday, plan next HD with UF as tolerated. Will need to evaluate for outpatient dialysis - initiated dialysis this admission. he was going to Lymphedema clinic that was helping with the swelling - will benefit with follow-up upon discharge. (2) CHF exacerbation Plan: monitor fluid volume status, on dialysis (3) HTN (hypertension) Plan: On ARB. We continue to monitor K and renal function with Losartan. Spironolactone was stopped (4) CAD (coronary artery disease) Plan: Previous coronary artery bypass graft No reports of chest pain Problem Qualifiers (1) CHF exacerbation: Qualified Code: I50.9 - Acute on chronic congestive heart failure, unspecified congestive heart failure type Rudi Otoole MD Jun 15, 2016 16:14
--- NOTE | 2016-06-15 20:55 | HHI.PR ---
Subjective Remarks No new complaints. Objective Vitals Vital Signs Date Time Temp Pulse Resp B/P Pulse Ox O2 Delivery O2 Flow Rate FiO2 06/15/16 16:00 96.6 94 18 122/72 95 06/15/16 13:54 Room Air 06/15/16 12:00 97.6 97 18 117/78 95 06/15/16 09:40 Room Air 06/15/16 09:28 62 06/15/16 08:00 98.0 72 18 141/71 95 06/15/16 00:00 98.5 73 20 99/50 96 06/14/16 06/14/16 06/15/16 15:00 23:00 07:00 Intake Total 240 ml 122 ml 0 ml Output Total 2025 ml Balance 240 ml -1903 ml 0 ml Intake Oral 240 ml 120 ml 0 ml IV Total 2 ml Output Urine Total 25 ml Hemodialysis 2000 ml # Voids 5 0 # Bowel Movements 2 Result Diagram: 06/11/16 0549 06/13/16 0534 Imaging Last Impressions Chest X-Ray 06/10/16 1620 Signed Impressions: Service Date/Time: Friday, June 10, 2016 16:24 - CONCLUSION: VasCath in good position. Da Byrnes MD FACR Catheter Placement X-Ray 06/10/16 0000 Signed Impressions: Service Date/Time: Friday, June 10, 2016 16:15 - CONCLUSION: Uncomplicated line placement as above. Connor Machado MD Lower Extremity Ultrasound 06/09/16 0000 Signed Impressions: Service Date/Time: Thursday, June 09, 2016 09:19 - CONCLUSION: Normal examination. Multiloculated Soria's cyst Trevor Serrano MD Knee X-Ray 06/09/16 0000 Signed Impressions: Service Date/Time: Thursday, June 09, 2016 08:32 - CONCLUSION: Marked joint space narrowing medially. No acute fracture Trevor Serrano MD Myocardial Perfusion Scan Nuc Med 05/28/16 0000 Signed Impressions: Service Date/Time: Saturday, May 28, 2016 13:27 - CONCLUSION: 1. Fixed perfusion defect in the inferolateral wall characteristic of prior myocardial infarction. Findings similar to 2012 exam. RISK CATEGORY: High (>3%% Annual Mortality Rate) Jareth Moreno MD Renal Ultrasound 05/27/16 0000 Signed Impressions: Service Date/Time: Friday, May 27, 2016 14:59 - CONCLUSION: 1. Early/mild chronic medical renal disease suspected. 2. No obstructive uropathy or other acute abnormality seen. 3. Nonvisualization of the urinary bladder, presumably empty. Abimael Nunez MD Objective Remarks General: NAD, AAOx3 Chest: CTA bilaterally Cardiac: Regular Abd: +BS, soft obese, nontender : less testicular edema Ext: dramatic improvement of LE edema A/P Problem List: (1) CHF exacerbation Status: Acute Plan: - Pt with CAD s/p 3v CABG in 2011 and A. fib presented with SOB, worsening LE edema with breakdown of lower ext skin and severe scrotal edema. Pt says he was going to lymphedema clinic for wraps and therapy in past. - Prior to admission his pcp doubled his Lasix last week w/out improvement. - He is noncompliant with CPAP for quite some time. - Pt presented with acute systolic CHF exacerbation - 2D echo (05/23/16) - Estimated EF 45-50%, no regional wall motion abnormalities - Mild to moderate tricuspid regurgitation - PA peak pressure 34mmHg - Pt's swelling seems multifactorial: CHF, untreated SUKUMAR, venous insufficiency and lymphedema, CKD, also stopped his Norvasc - Pt had placement of VasCath 06/10/16 - pt underwent HD on 06/11,06/12, 06/14, and next HD 06/17/16 - Renal function declining - anticipate discharge to SNF in the next 3-5 days, once outpt HD arrangements can be made 06/15/16 - No new complaints - Pt interviewed and examined - continue current plan as outlined above (2) Atrial fibrillation Status: Chronic Plan: - Cont. BB - Pt is currently anticoagulated on Coumadin 3mg po daily (3) CAD (coronary artery disease) Status: Chronic Plan: - s/p cabg x 3 2011. - Pt had V tach noted on telemetry - Cardiology following -tenzin neg for ischemia (4) HTN (hypertension) Status: Chronic Plan: - Cont home meds - Monitor (5) CKD (chronic kidney disease) stage 3, GFR 30-59 ml/min Status: Chronic Plan: - See above. Problem Qualifiers (1) CHF exacerbation: Qualified Code: I50.9 - Acute on chronic congestive heart failure, unspecified congestive heart failure type Michael Rich DO Jun 15, 2016 20:55
[2016-06-15] MEDS: SENNOSIDES 8.6 MG TAB PO SCH (21:50)
[2016-06-15] MEDS: TAMSULOSIN HCL 0.4 MG CAP PO SCH (21:50)
[2016-06-15] MEDS: LOSARTAN 50 MG TAB PO SCH (21:50)
[2016-06-15] MEDS: ATORVASTATIN 20 MG TAB PO SCH (21:50)
[2016-06-16] VITALS (7 sets, daily range): BP systolic 97–125; BP diastolic 56–64; PULSE 63–79; RESP 18–20; TEMP 97.4–98.3; O2SAT 96–100
[2016-06-16] MEDS: oxyCODONE/ACETAMINOPHEN 7.5 MG/325 MG TAB PO PRN ×2 (00:04→23:59)
[2016-06-16] MEDS ORDERED: POTASSIUM CL 40 MEQ/30 ML LIQ UDC PO ONE (08:00)
[2016-06-16] MEDS: SODIUM CHLORIDE 0.9% FLUSH 5 ML FLUSH IVF SCH ×2 (11:09→22:09)
[2016-06-16] MEDS: ALLOPURINOL 100 MG TAB PO SCH (11:10)
[2016-06-16] MEDS: METOPROLOL SUCCINATE 50 MG EXTENDED RELEASE TAB PO SCH (11:10)
[2016-06-16] MEDS: PANTOPRAZOLE SOD 40 MG DELAYED RELEASE TAB PO SCH (11:10)
[2016-06-16] MEDS: PHYTONADIONE 5 MG TAB PO SCH (11:10)
[2016-06-16] MEDS: SPIRONOLACTONE 25 MG TAB PO SCH (11:10)
--- NOTE | 2016-06-16 15:19 | HHI.NPPN ---
Subjective Complaints: Obesity General Problems: Edema Renal Failure: Chronic, Acute Additional Remarks No acute complaints Review of Systems General Constitutional: Fatigue Cardiovascular Cardiac: Edema, LOW Objective Data Data 06/15/16 06/16/16 19:00 07:00 Intake Total 2 ml 220 ml Output Total 50 ml Balance 2 ml 170 ml Intake Oral 220 ml IV Total 2 ml Output Urine Total 50 ml Vital Signs Date Time Temp Pulse Resp B/P Pulse Ox O2 Delivery O2 Flow Rate FiO2 06/16/16 12:11 97.6 70 20 108/56 96 06/16/16 11:10 Room Air 06/16/16 09:10 63 06/16/16 08:03 97.8 79 18 117/56 98 06/16/16 00:20 98.3 78 20 99/64 100 06/15/16 20:45 Room Air 06/15/16 20:45 78 06/15/16 20:00 98.0 60 20 100/57 96 06/15/16 16:00 96.6 94 18 122/72 95 -: 06/13/16 0534 Drip Comment Bumex at 1 mg/hr Physical Exam General Appearance: Well Developed, Well Nourished, No Acute Distress, Comfortable Eyes Eye Exam: Pupils Equal Neck Neck Exam: Neck Supple Pulmonary Resp Exam: Clear Bilaterally, Breath Sounds Equal, Decreased Bases Cardiology CV Exam: Good Perfusion, Irregular Gastrointestinal/Abdomen GI Exam: Soft, Non-Tender, Bowel Sounds Present, Distended Genitourinary Exam: Clear Urine Musculoskeletal MS Exam: Joints Intact, Normal Tone Integumentary Skin Exam: Clear, Warm, Dry, Intact Extremeties Extremities Exam: Pedal Pulses Palpable, Pitting Edema, Dependent Edema Neurologic Neuro Exam: Alert, Awake, Oriented, Speech Clear, Moving All Extremities Psychiatric Psych Exam: Appropriate Responses Assessment/Plan Discussed Condition With: Patient Problem List: (1) CKD (chronic kidney disease) stage 3, GFR 30-59 ml/min Plan: Renal function not improving, continued minimal UOP. Dialysis done Friday, plan next HD Friday with UF as tolerated. Will need to evaluate for outpatient dialysis arrangements this week - initiated dialysis this admission. he was going to Lymphedema clinic that was helping with the swelling - will benefit with follow-up upon discharge. (2) CHF exacerbation Plan: monitor fluid volume status, on dialysis (3) HTN (hypertension) Plan: On ARB. We continue to monitor K and renal function with Losartan. Spironolactone was stopped (4) CAD (coronary artery disease) Plan: Previous coronary artery bypass graft No reports of chest pain Problem Qualifiers (1) CHF exacerbation: Qualified Code: I50.9 - Acute on chronic congestive heart failure, unspecified congestive heart failure type Rudi Otoole MD Jun 16, 2016 15:18
--- NOTE | 2016-06-16 15:57 | HHI.PR ---
Subjective Remarks No new complaints. Objective Vitals Vital Signs Date Time Temp Pulse Resp B/P Pulse Ox O2 Delivery O2 Flow Rate FiO2 06/16/16 12:11 97.6 70 20 108/56 96 06/16/16 11:10 Room Air 06/16/16 09:10 63 06/16/16 08:03 97.8 79 18 117/56 98 06/16/16 00:20 98.3 78 20 99/64 100 06/15/16 20:45 Room Air 06/15/16 20:45 78 06/15/16 20:00 98.0 60 20 100/57 96 06/15/16 16:00 96.6 94 18 122/72 95 06/15/16 06/15/16 06/16/16 14:59 22:59 06:59 Intake Total 2 ml 100 ml 120 ml Output Total 50 ml Balance 2 ml 50 ml 120 ml Intake Oral 100 ml 120 ml IV Total 2 ml Output Urine Total 50 ml Result Diagram: 06/13/16 0534 Imaging Last Impressions Chest X-Ray 06/10/16 1620 Signed Impressions: Service Date/Time: Friday, June 10, 2016 16:24 - CONCLUSION: VasCath in good position. Da Byrnes MD FACR Catheter Placement X-Ray 06/10/16 0000 Signed Impressions: Service Date/Time: Friday, June 10, 2016 16:15 - CONCLUSION: Uncomplicated line placement as above. Connor Machado MD Lower Extremity Ultrasound 06/09/16 0000 Signed Impressions: Service Date/Time: Thursday, June 09, 2016 09:19 - CONCLUSION: Normal examination. Multiloculated Soria's cyst Trevor Serrano MD Knee X-Ray 06/09/16 0000 Signed Impressions: Service Date/Time: Thursday, June 09, 2016 08:32 - CONCLUSION: Marked joint space narrowing medially. No acute fracture rTevor Serrano MD Myocardial Perfusion Scan Nuc Med 05/28/16 0000 Signed Impressions: Service Date/Time: Saturday, May 28, 2016 13:27 - CONCLUSION: 1. Fixed perfusion defect in the inferolateral wall characteristic of prior myocardial infarction. Findings similar to 2012 exam. RISK CATEGORY: High (>3%% Annual Mortality Rate) Jareth Moreno MD Renal Ultrasound 05/27/16 0000 Signed Impressions: Service Date/Time: Friday, May 27, 2016 14:59 - CONCLUSION: 1. Early/mild chronic medical renal disease suspected. 2. No obstructive uropathy or other acute abnormality seen. 3. Nonvisualization of the urinary bladder, presumably empty. Abimael Nunez MD Objective Remarks General: NAD, AAOx3 Chest: CTA bilaterally Cardiac: Regular Abd: +BS, soft obese, nontender : less testicular edema Ext: dramatic improvement of LE edema A/P Problem List: (1) CHF exacerbation Status: Acute Plan: - Pt with CAD s/p 3v CABG in 2011 and A. fib presented with SOB, worsening LE edema with breakdown of lower ext skin and severe scrotal edema. Pt says he was going to lymphedema clinic for wraps and therapy in past. - Prior to admission his pcp doubled his Lasix last week w/out improvement. - He is noncompliant with CPAP for quite some time. - Pt presented with acute systolic CHF exacerbation - 2D echo (05/23/16) - Estimated EF 45-50%, no regional wall motion abnormalities - Mild to moderate tricuspid regurgitation - PA peak pressure 34mmHg - Pt's swelling seems multifactorial: CHF, untreated SUKUMAR, venous insufficiency and lymphedema, CKD, also stopped his Norvasc - Pt had placement of VasCath 06/10/16 - pt underwent HD on 06/11,06/12, 06/14, and next HD 06/17/16 - Renal function worsening - will need PermCath - anticipate discharge to SNF in the next 2-4 days, once outpt HD arrangements can be made (2) Atrial fibrillation Status: Chronic Plan: - Cont. BB - Pt is currently anticoagulated on Coumadin 3mg po daily (3) CAD (coronary artery disease) Status: Chronic Plan: - s/p cabg x 3 2011. - Pt had V tach noted on telemetry - Cardiology following -tenzin neg for ischemia (4) HTN (hypertension) Status: Chronic Plan: - Cont home meds - Monitor (5) CKD (chronic kidney disease) stage 3, GFR 30-59 ml/min Status: Chronic Plan: - See above. Problem Qualifiers (1) CHF exacerbation: Qualified Code: I50.9 - Acute on chronic congestive heart failure, unspecified congestive heart failure type Michael Rich DO Jun 16, 2016 15:56
[2016-06-16] MEDS: TAMSULOSIN HCL 0.4 MG CAP PO SCH (22:08)
[2016-06-16] MEDS: LOSARTAN 50 MG TAB PO SCH (22:08)
[2016-06-16] MEDS: SENNOSIDES 8.6 MG TAB PO SCH (22:08)
[2016-06-16] MEDS: ATORVASTATIN 20 MG TAB PO SCH (22:09)
[2016-06-17] VITALS (8 sets, daily range): BP systolic 110–140; BP diastolic 55–96; PULSE 58–102; RESP 17–20; TEMP 97.2–98.7; O2SAT 94–97
[2016-06-17 08:06] LABS: AUTOMATED NEUTROPHIL # 4.2 TH/MM3 (1.8-7.7); BASOPHIL # 0.1 TH/MM3 (0-0.2); BASOPHIL % 0.8 % (0.0-2.0); EOSINOPHIL # 0.3 TH/MM3 (0-0.4); EOSINOPHIL % 4.8 % (0.0-4.0); HEMATOCRIT 29.8 % (39.0-51.0); HEMO FLAGS DIFF FINAL; LYMPH % 21.4 % (9.0-44.0); LYMPHOCYTE # 1.4 TH/MM3 (1.0-4.8); MEAN CELL VOLUME 89.2 FL (80.0-100.0); MEAN CORPUSCULAR HEMOGLOBIN 28.5 PG (27.0-34.0); MONO % 8.7 % (0.0-8.0); NEUT % 64.3 % (16.0-70.0); PLATELET COUNT 238 TH/MM3 (150-450); RED BLOOD COUNT 3.34 MIL/MM3 (4.50-5.90); RED CELL DISTRIBUTION WIDTH 16.1 % (11.6-17.2); WHITE BLOOD COUNT 6.5 TH/MM3 (4.0-11.0)
[2016-06-17 08:39] LABS: BICARBONATE 31.4 MEQ/L (21.0-32.0); MAGNESIUM 1.8 MG/DL (1.5-2.5); POTASSIUM 5.2 MEQ/L (3.5-5.1)
[2016-06-17] MEDS: ALLOPURINOL 100 MG TAB PO SCH (09:00)
--- NOTE | 2016-06-17 10:00 | HHI.NPPN ---
Subjective Complaints: Obesity General Problems: Edema, Hypertension Renal Failure: Chronic, Acute Interval History Seen during dialysis. Edema has improved. NPO for PermCath placement today. ( Laisha Licea) Review of Systems General Constitutional: Fatigue (Laisha Licea) Cardiovascular Cardiac: Edema, LOW (Laisha Licea) Objective Data Data 06/16/16 06/17/16 19:00 07:00 Intake Total 242 ml 400 ml Output Total 50 ml Balance 242 ml 350 ml Intake Oral 240 ml 400 ml IV Total 2 ml Output Urine Total 50 ml # Voids 2 0 # Bowel Movements 0 Vital Signs Date Time Temp Pulse Resp B/P Pulse Ox O2 Delivery O2 Flow Rate FiO2 06/17/16 04:00 97.6 85 18 116/55 94 06/17/16 00:00 97.2 74 17 119/74 97 06/16/16 22:00 77 06/16/16 22:00 Room Air 06/16/16 20:00 97.8 69 18 125/56 96 06/16/16 16:26 97.4 79 20 97/57 96 06/16/16 12:11 97.6 70 20 108/56 96 06/16/16 11:10 Room Air (Laisha Licea) -: 06/17/16 0638 06/17/16 0638 Tubes & Lines: Vas-Cath Tubes & Lines Comment R IJ (Laisha Licea) Physical Exam General Appearance: Well Developed, Well Nourished, No Acute Distress, Comfortable, Obese (Laisha Licea) Eyes Eye Exam: Pupils Equal (Laisha Licea) Neck Neck Exam: Neck Supple (Laisha Licea) Pulmonary Resp Exam: Clear Bilaterally, Breath Sounds Equal, Decreased Bases (Laisha Licea) Cardiology CV Exam: Good Perfusion, Irregular (Laisha Licea) Gastrointestinal/Abdomen GI Exam: Soft, Non-Tender, Bowel Sounds Present, Distended (Laisha Licea) Genitourinary Exam: Clear Urine Remarks resolving scrotal edema (Laisha Licea) Musculoskeletal MS Exam: Joints Intact, Normal Tone (Laisha Licea) Integumentary Skin Exam: Clear, Warm, Dry, Intact (Laisha Licea) Extremeties Extremities Exam: Pedal Pulses Palpable, Moderate Edema, Dependent Edema ( Laisha Licea) Neurologic Neuro Exam: Alert, Awake, Oriented, Speech Clear, Moving All Extremities ( Laisha Licea) Psychiatric Psych Exam: Appropriate Responses (Laisha Licea) Assessment/Plan Discussed Condition With: Patient Assessment Summary: Hypertension, End Stage Renal Disease Problem List: (1) CKD (chronic kidney disease) stage 3, GFR 30-59 ml/min Plan: Renal function declined, dialysis initiated last week seen during dialysis today on a 2K, 350 BFR, goal 2500 it seems he may have been aggressively diuresed causing ATN we will hold diuretics and ARB, monitor renal function for potential recovery to have vascath exchanged for PermCath today He is a candidate and more suited for home dialysis and PD if ESRD is the outcome, we had a discussion on treatment differences He would like to think about it, may have PD catheter placed this admission if needed UOP seems to be decreasing, monitor renal panel in am (2) CHF exacerbation Plan: monitor fluid volume status, adjust UF as tolerated (3) HTN (hypertension) Plan: On ARB. We continue to monitor K and renal function with Losartan. Spironolactone will be stopped (4) CAD (coronary artery disease) Plan: Previous coronary artery bypass graft No reports of chest pain (Laisha Licea) Plan patient was seen and examined. Seen during dialysis. It is unclear to me if he has reached ESRD. There may be an element of PATO due to ATN: resulting from aggressive diuresis and hypotension. (Donny Vidal MD) Problem Qualifiers (1) CHF exacerbation: Qualified Code: I50.9 - Acute on chronic congestive heart failure, unspecified congestive heart failure type Laisha Licea Jun 17, 2016 09:59 Donny Vidal MD Jun 17, 2016 11:35
[2016-06-17] MEDS: EPOETIN ALFA 10,000 UNITS/ML VIAL IV PRN (11:21)
[2016-06-17] MEDS: GENTAMICIN SULFATE (DIALYSIS USE ONLY) 20 MG/2 ML VIAL IV PRN (11:21)
[2016-06-17] MEDS: HEPARIN SODIUM - IV 10,000 UNITS/10 ML VIAL PRN (11:21)
[2016-06-17] MEDS: ALBUMIN HUMAN 25% 25 GM/100 ML BAGP IV PRN (11:22)
--- NOTE | 2016-06-17 12:00 | HHI.PR ---
Subjective Remarks in dialysis Objective Vitals heart reg lung cta abd s/nt ext/scrotal edema much improved vascath. Vital Signs Date Time Temp Pulse Resp B/P Pulse Ox O2 Delivery O2 Flow Rate FiO2 06/17/16 08:00 97.8 102 20 140/96 96 06/17/16 04:00 97.6 85 18 116/55 94 06/17/16 00:00 97.2 74 17 119/74 97 06/16/16 22:00 77 06/16/16 22:00 Room Air 06/16/16 20:00 97.8 69 18 125/56 96 06/16/16 16:26 97.4 79 20 97/57 96 06/16/16 12:11 97.6 70 20 108/56 96 06/16/16 06/16/16 06/17/16 15:00 23:00 07:00 Intake Total 242 ml 280 ml 120 ml Output Total 50 ml Balance 242 ml 230 ml 120 ml Intake Oral 240 ml 280 ml 120 ml IV Total 2 ml Output Urine Total 50 ml # Voids 2 0 # Bowel Movements 0 Result Diagram: 06/17/16 0638 06/17/16 0638 Imaging Last Impressions Chest X-Ray 06/10/16 1620 Signed Impressions: Service Date/Time: Friday, June 10, 2016 16:24 - CONCLUSION: VasCath in good position. Da Byrnes MD FACR Catheter Placement X-Ray 06/10/16 0000 Signed Impressions: Service Date/Time: Friday, June 10, 2016 16:15 - CONCLUSION: Uncomplicated line placement as above. Connor Machado MD Lower Extremity Ultrasound 06/09/16 0000 Signed Impressions: Service Date/Time: Thursday, June 09, 2016 09:19 - CONCLUSION: Normal examination. Multiloculated Soria's cyst Trevor Serrano MD Knee X-Ray 06/09/16 0000 Signed Impressions: Service Date/Time: Thursday, June 09, 2016 08:32 - CONCLUSION: Marked joint space narrowing medially. No acute fracture Trevor Serrano MD Myocardial Perfusion Scan Nuc Med 05/28/16 0000 Signed Impressions: Service Date/Time: Saturday, May 28, 2016 13:27 - CONCLUSION: 1. Fixed perfusion defect in the inferolateral wall characteristic of prior myocardial infarction. Findings similar to 2012 exam. RISK CATEGORY: High (>3%% Annual Mortality Rate) Jareth Moreno MD Renal Ultrasound 05/27/16 0000 Signed Impressions: Service Date/Time: Friday, May 27, 2016 14:59 - CONCLUSION: 1. Early/mild chronic medical renal disease suspected. 2. No obstructive uropathy or other acute abnormality seen. 3. Nonvisualization of the urinary bladder, presumably empty. Abimael Nunez MD A/P Problem List: (1) CHF exacerbation Status: Acute Plan: - Pt with CAD s/p 3v CABG in 2012 and A. fib presented with SOB, worsening LE edema with breakdown of lower ext skin and severe scrotal edema. Pt says he was going to lymphedema clinic for wraps and therapy in past. - Prior to admission his pcp doubled his Lasix last week w/out improvement. - He is noncompliant with CPAP for quite some time. - Pt presented with acute systolic CHF exacerbation - 2D echo (05/23/16) - Estimated EF 45-50%, no regional wall motion abnormalities - Mild to moderate tricuspid regurgitation - PA peak pressure 34mmHg - Pt's swelling seems multifactorial: CHF, untreated SUKUMAR, venous insufficiency and lymphedema, CKD, also stopped his Norvasc - Pt had placement of VasCath 06/10/16 - pt undergoing hemodialysis -permcath planned if inr lower -pt discussing possible PD with renal will plan for d/c once permcath and outpt arrangment made for HD (2) Atrial fibrillation Status: Chronic Plan: -hold for permcath. (3) CAD (coronary artery disease) Status: Chronic Plan: - s/p cabg x 3 2011. - Pt had V tach noted on telemetry - Cardiology following -tenzin neg for ischemia (4) HTN (hypertension) Status: Chronic Plan: - Cont home meds - Monitor (5) CKD (chronic kidney disease) stage 3, GFR 30-59 ml/min Status: Chronic Plan: - See above. Problem Qualifiers (1) CHF exacerbation: Qualified Code: I50.9 - Acute on chronic congestive heart failure, unspecified congestive heart failure type Alfonso Asif MD Jun 17, 2016 12:00 Alfonso Asif MD Jun 17, 2016 12:00
[2016-06-17] MEDS: PHYTONADIONE 5 MG TAB PO SCH (13:41)
[2016-06-17] MEDS: PANTOPRAZOLE SOD 40 MG DELAYED RELEASE TAB PO SCH (13:41)
[2016-06-17] MEDS: METOPROLOL SUCCINATE 50 MG EXTENDED RELEASE TAB PO SCH (13:41)
[2016-06-17] MEDS: SODIUM CHLORIDE 0.9% FLUSH 5 ML FLUSH IVF SCH ×2 (13:42→21:14)
[2016-06-17 14:25] LABS: APTT (PATIENT) 27.2 SEC (24.3-30.1); INTERNATIONAL NORMALIZED RATIO 1.2 RATIO
[2016-06-17] MEDS: TAMSULOSIN HCL 0.4 MG CAP PO SCH (21:12)
[2016-06-17] MEDS: ATORVASTATIN 20 MG TAB PO SCH (21:12)
[2016-06-17] MEDS: SENNOSIDES 8.6 MG TAB PO SCH (21:12)
[2016-06-17] MEDS: oxyCODONE/ACETAMINOPHEN 7.5 MG/325 MG TAB PO PRN (23:51)
[2016-06-18] VITALS (11 sets, daily range): BP systolic 108–159; BP diastolic 48–81; PULSE 64–86; RESP 18–20; TEMP 97.2–98.8; O2SAT 94–100
[2016-06-18] MEDS: METOPROLOL SUCCINATE 50 MG EXTENDED RELEASE TAB PO SCH (07:58)
[2016-06-18] MEDS: PANTOPRAZOLE SOD 40 MG DELAYED RELEASE TAB PO SCH (07:58)
[2016-06-18] MEDS: SODIUM CHLORIDE 0.9% FLUSH 5 ML FLUSH IVF SCH ×2 (07:59→22:22)
[2016-06-18] MEDS: ALLOPURINOL 100 MG TAB PO SCH (08:01)
[2016-06-18 08:05] LABS: BICARBONATE 31.5 MEQ/L (21.0-32.0); POTASSIUM 4.8 MEQ/L (3.5-5.1)
--- NOTE | 2016-06-18 11:19 | HHI.PR ---
Subjective Remarks doing ok. Objective Vitals heart reg lung cta abd s/nt ext edema/scrotal swelling much better. Vital Signs Date Time Temp Pulse Resp B/P Pulse Ox O2 Delivery O2 Flow Rate FiO2 06/18/16 08:13 78 06/18/16 08:05 Room Air 06/18/16 08:00 97.8 80 20 143/81 97 06/18/16 00:00 98.3 68 18 114/56 99 06/17/16 22:03 58 06/17/16 21:15 Room Air 06/17/16 20:00 98.7 67 18 131/60 97 06/17/16 16:00 98.1 68 20 110/55 96 06/17/16 12:00 98.0 75 20 127/69 95 06/17/16 06/17/16 06/18/16 15:00 23:00 07:00 Intake Total 0 ml 120 ml 120 ml Output Total 2050 ml 100 ml Balance -2050 ml 20 ml 120 ml Intake Oral 0 ml 120 ml 120 ml Output Urine Total 250 ml 100 ml Hemodialysis 1800 ml # Bowel Movements 0 Result Diagram: 06/17/16 0638 06/18/16 0651 Imaging Last Impressions Chest X-Ray 06/10/16 1620 Signed Impressions: Service Date/Time: Friday, June 10, 2016 16:24 - CONCLUSION: VasCath in good position. Da Byrnes MD FACR Catheter Placement X-Ray 06/10/16 0000 Signed Impressions: Service Date/Time: Friday, June 10, 2016 16:15 - CONCLUSION: Uncomplicated line placement as above. Connor Machado MD Lower Extremity Ultrasound 06/09/16 0000 Signed Impressions: Service Date/Time: Thursday, June 09, 2016 09:19 - CONCLUSION: Normal examination. Multiloculated Soria's cyst Trevor Serrano MD Knee X-Ray 06/09/16 0000 Signed Impressions: Service Date/Time: Thursday, June 09, 2016 08:32 - CONCLUSION: Marked joint space narrowing medially. No acute fracture Trevor Serrano MD Myocardial Perfusion Scan Nuc Med 05/28/16 0000 Signed Impressions: Service Date/Time: Saturday, May 28, 2016 13:27 - CONCLUSION: 1. Fixed perfusion defect in the inferolateral wall characteristic of prior myocardial infarction. Findings similar to 2012 exam. RISK CATEGORY: High (>3%% Annual Mortality Rate) Jareth Moreno MD Renal Ultrasound 05/27/16 0000 Signed Impressions: Service Date/Time: Friday, May 27, 2016 14:59 - CONCLUSION: 1. Early/mild chronic medical renal disease suspected. 2. No obstructive uropathy or other acute abnormality seen. 3. Nonvisualization of the urinary bladder, presumably empty. Abimael Nunez MD A/P Problem List: (1) CHF exacerbation Status: Acute Plan: - Pt with CAD s/p 3v CABG in 2011 and A. fib presented with SOB, worsening LE edema with breakdown of lower ext skin and severe scrotal edema. Pt says he was going to lymphedema clinic for wraps and therapy in past. - Prior to admission his pcp doubled his Lasix last week w/out improvement. - He is noncompliant with CPAP for quite some time. - Pt presented with acute systolic CHF exacerbation - 2D echo (05/23/16) - Estimated EF 45-50%, no regional wall motion abnormalities - Mild to moderate tricuspid regurgitation - PA peak pressure 34mmHg - Pt's swelling seems multifactorial: CHF, untreated SUKUMAR, venous insufficiency and lymphedema, CKD, also stopped his Norvasc - Pt had placement of VasCath 06/10/16 - pt undergoing hemodialysis -permcath planned -pt discussing possible PD with renal ..d/c once outpt hemodialysis arrangement made and ?PD cath placed. (2) Atrial fibrillation Status: Chronic Plan: -hold for permcath. (3) CAD (coronary artery disease) Status: Chronic Plan: - s/p cabg x 3 2011. - Pt had V tach noted on telemetry - Cardiology following -tenzin neg for ischemia (4) HTN (hypertension) Status: Chronic Plan: - Cont home meds - Monitor (5) CKD (chronic kidney disease) stage 3, GFR 30-59 ml/min Status: Chronic Plan: - See above. Problem Qualifiers (1) CHF exacerbation: Qualified Code: I50.9 - Acute on chronic congestive heart failure, unspecified congestive heart failure type Alfonso Asif MD Jun 18, 2016 11:19
[2016-06-18] MEDS ORDERED: LEVOFLOXACIN 500 MG PREMIX INJ 100 ML IV ONE (12:00)
[2016-06-18] MEDS ORDERED: VANCOMYCIN INJ 1,000 MG in SODIUM CHLOR 0.9% 250 ML INJ 250 ML IV SCH (13:00)
[2016-06-18] MEDS ORDERED: fentaNYL CITRATE 250 MCG/5 ML AMP ONE (14:54)
[2016-06-18] MEDS ORDERED: MIDAZOLAM HCL 5 MG/5 ML VIAL ONE (14:54)
[2016-06-18] MEDS ORDERED: LIDOCAINE 1%/EPINEPHrine 1:100,000 SOLN 20 ML VIAL ONE (15:03)
--- NOTE | 2016-06-18 15:44 | PD.RAD ---
Post Procedure Progress Note Pre Procedure Diagnosis: (1) CKD (chronic kidney disease) stage 3, GFR 30-59 ml/min (2) CHF exacerbation Post Procedure Diagnosis: (1) CHF exacerbation (2) CKD (chronic kidney disease) stage 3, GFR 30-59 ml/min Procedure Date: Jun 18, 2016 Supervising Radiologist: Rudi Byrnes Anesthesia: Local, Conscious Sedation Plan of Activity Patient to Unit: ROPU Patient Condition: Fair Additional Comments: Right Ij vascath removed without difficulty. New right IJ permcath placed without difficulty. Catheter in good position OK for use See PACS Report for procedural detail/treatment Rudi Byrnes MD Jun 18, 2016 15:44
[2016-06-18] MEDS ORDERED: HEPARIN SODIUM - IV 10,000 UNITS/10 ML VIAL IVF PRN (15:45)
[2016-06-18] MEDS ORDERED: SODIUM CHLORIDE 0.9% FLUSH 5 ML FLUSH IVF PRN (15:45)
--- NOTE | 2016-06-18 17:08 | HHI.NPPN ---
Subjective Complaints: Obesity General Problems: Edema, Hypertension Renal Failure: Chronic, Acute Interval History Seen around 0930 today. Sitting up in chair. Edema much improved. Dialyzed yesterday. (Laisha Licea) Review of Systems General Constitutional: Fatigue (Laisha Licea) Cardiovascular Cardiac: Edema, LOW (Laisha Licea) Objective Data Data 06/17/16 06/18/16 19:00 07:00 Intake Total 0 ml 240 ml Output Total 2050 ml 100 ml Balance -2050 ml 140 ml Intake Oral 0 ml 240 ml Output Urine Total 250 ml 100 ml Hemodialysis 1800 ml # Bowel Movements 0 Vital Signs Date Time Temp Pulse Resp B/P Pulse Ox O2 Delivery O2 Flow Rate FiO2 06/18/16 16:45 72 18 159/61 99 06/18/16 16:45 66 20 159/61 99 06/18/16 16:30 86 18 137/48 99 06/18/16 16:15 78 19 145/72 99 06/18/16 16:00 98.8 77 20 142/74 100 06/18/16 15:57 98.8 77 20 142/74 98 06/18/16 12:00 98.0 73 20 148/71 96 06/18/16 08:13 78 06/18/16 08:05 Room Air 06/18/16 08:00 97.8 80 20 143/81 97 06/18/16 00:00 98.3 68 18 114/56 99 06/17/16 22:03 58 06/17/16 21:15 Room Air 06/17/16 20:00 98.7 67 18 131/60 97 (Laisha Licea) -: 06/17/16 0638 06/18/16 0651 Tubes & Lines: Vas-Cath Tubes & Lines Comment R IJ (Laisha Licea) Physical Exam General Appearance: Well Developed, Well Nourished, No Acute Distress, Comfortable, Obese (Laisha Licea) Eyes Eye Exam: Pupils Equal (Laisha Licea) Neck Neck Exam: Neck Supple (Laisha Licea) Pulmonary Resp Exam: Clear Bilaterally, Breath Sounds Equal, Decreased Bases (Laisha Licea) Cardiology CV Exam: Good Perfusion, Irregular (Laisha Licea) Gastrointestinal/Abdomen GI Exam: Soft, Non-Tender, Bowel Sounds Present, Distended (Laisha Lieca) Genitourinary Exam: Clear Urine Remarks resolving scrotal edema (Laisha Licea) Musculoskeletal MS Exam: Joints Intact, Normal Tone (Laisha Licea) Integumentary Skin Exam: Clear, Warm, Dry, Intact (Laisha Licea) Extremeties Extremities Exam: Pedal Pulses Palpable, Moderate Edema, Dependent Edema ( Laisha Licea) Neurologic Neuro Exam: Alert, Awake, Oriented, Speech Clear, Moving All Extremities ( Laisha Licea) Psychiatric Psych Exam: Appropriate Responses (Laisha Licea) Assessment/Plan Discussed Condition With: Patient Assessment Summary: Hypertension, End Stage Renal Disease Problem List: (1) CKD (chronic kidney disease) stage 3, GFR 30-59 ml/min Plan: Renal function declined, dialysis initiated last week, is now on // HD schedule 1800 ml UF yesterday his creatinine was not this bad two weeks ago, leading me to believe aggressive diuresis may have contributed to ATN urine output has dropped monitor renal function daily, he may have potential renal recovery in the meantime Permcath to be placed today continue holding diuretics and ARB unsure if he has reached (2) CHF exacerbation Plan: monitor fluid volume status, adjust UF as tolerated (3) HTN (hypertension) Plan: On metoprolol, monitor heart rate (4) CAD (coronary artery disease) Plan: Previous coronary artery bypass graft No reports of chest pain (Laisha Licea) Plan patient was seen and examined. Agree with above assessment and plan. It is unclear if he has reached ESRD. Dialysis for now. Outpatient set up for dialysis if his insurance company agrees to cover outpatient dialysis with diagnosis of PATO (Donny Vidal MD) Problem Qualifiers (1) CHF exacerbation: Qualified Code: I50.9 - Acute on chronic congestive heart failure, unspecified congestive heart failure type Laisha Licea Jun 18, 2016 17:08 Donny Vidal MD Jun 19, 2016 07:56
[2016-06-18] MEDS: SENNOSIDES 8.6 MG TAB PO SCH (22:22)
[2016-06-18] MEDS: TAMSULOSIN HCL 0.4 MG CAP PO SCH (22:22)
[2016-06-18] MEDS: ATORVASTATIN 20 MG TAB PO SCH (22:22)
[2016-06-19] VITALS (7 sets, daily range): BP systolic 105–134; BP diastolic 56–63; PULSE 63–96; RESP 18–20; TEMP 97.5–98.4; O2SAT 94–99
[2016-06-19] MEDS: oxyCODONE/ACETAMINOPHEN 7.5 MG/325 MG TAB PO PRN ×2 (00:40→23:16)
[2016-06-19] MEDS: METOPROLOL SUCCINATE 50 MG EXTENDED RELEASE TAB PO SCH (09:00)
[2016-06-19] MEDS: ALLOPURINOL 100 MG TAB PO SCH (09:00)
[2016-06-19] MEDS: SODIUM CHLORIDE 0.9% FLUSH 5 ML FLUSH IVF SCH ×2 (09:00→21:54)
[2016-06-19] MEDS: PANTOPRAZOLE SOD 40 MG DELAYED RELEASE TAB PO SCH (09:00)
[2016-06-19] MEDS: SODIUM CHLOR 0.9% 1000 ML INJ 1,000 ML IV PRN ×2 (09:24)
[2016-06-19] MEDS: EPOETIN ALFA 10,000 UNITS/ML VIAL IV PRN (09:24)
[2016-06-19] MEDS: SODIUM CHLORIDE 0.9% FLUSH 5 ML FLUSH IVF PRN (09:25)
[2016-06-19] MEDS: GENTAMICIN SULFATE (DIALYSIS USE ONLY) 20 MG/2 ML VIAL IV PRN (09:25)
[2016-06-19] MEDS: HEPARIN SODIUM - IV 10,000 UNITS/10 ML VIAL PRN (09:25)
[2016-06-19] MEDS: ALBUMIN HUMAN 25% 25 GM/100 ML BAGP IV PRN (10:40)
--- NOTE | 2016-06-19 12:16 | HHI.PR ---
Subjective Remarks doing ok. Objective Vitals heart reg lung cta abd s/nt ext less edema and scrotal edema permcath noted. Vital Signs Date Time Temp Pulse Resp B/P Pulse Ox O2 Delivery O2 Flow Rate FiO2 06/19/16 08:00 97.5 63 20 134/63 98 06/19/16 04:00 97.7 87 18 110/63 99 06/19/16 00:00 97.6 96 18 105/62 96 06/18/16 22:30 Room Air 06/18/16 20:00 64 06/18/16 20:00 97.6 67 18 112/67 100 06/18/16 17:01 70 18 151/62 100 06/18/16 16:45 72 18 159/61 99 06/18/16 16:45 66 20 159/61 99 06/18/16 16:30 86 18 137/48 99 06/18/16 16:15 78 19 145/72 99 06/18/16 16:00 98.8 77 20 142/74 100 06/18/16 16:00 97.2 81 20 108/55 94 06/18/16 15:57 98.8 77 20 142/74 98 06/18/16 06/18/16 06/19/16 15:00 23:00 07:00 Intake Total 0 ml 480 ml 150 ml Output Total 200 ml 100 ml Balance 0 ml 280 ml 50 ml Intake Oral 0 ml 480 ml 150 ml Output Urine Total 200 ml 100 ml # Voids 2 # Bowel Movements 0 Result Diagram: 06/17/16 0638 06/18/16 0651 Imaging Last Impressions Chest X-Ray 06/10/16 1620 Signed Impressions: Service Date/Time: Friday, June 10, 2016 16:24 - CONCLUSION: VasCath in good position. Da Byrnes MD FACR Catheter Placement X-Ray 06/10/16 0000 Signed Impressions: Service Date/Time: Friday, June 10, 2016 16:15 - CONCLUSION: Uncomplicated line placement as above. Connor Machado MD Lower Extremity Ultrasound 06/09/16 0000 Signed Impressions: Service Date/Time: Thursday, June 09, 2016 09:19 - CONCLUSION: Normal examination. Multiloculated Soria's cyst Trevor Serrano MD Knee X-Ray 06/09/16 0000 Signed Impressions: Service Date/Time: Thursday, June 09, 2016 08:32 - CONCLUSION: Marked joint space narrowing medially. No acute fracture Trevor Serrano MD Myocardial Perfusion Scan Nuc Med 05/28/16 0000 Signed Impressions: Service Date/Time: Saturday, May 28, 2016 13:27 - CONCLUSION: 1. Fixed perfusion defect in the inferolateral wall characteristic of prior myocardial infarction. Findings similar to 2012 exam. RISK CATEGORY: High (>3%% Annual Mortality Rate) Jareth Moreno MD Renal Ultrasound 05/27/16 0000 Signed Impressions: Service Date/Time: Friday, May 27, 2016 14:59 - CONCLUSION: 1. Early/mild chronic medical renal disease suspected. 2. No obstructive uropathy or other acute abnormality seen. 3. Nonvisualization of the urinary bladder, presumably empty. Abimael Nunez MD A/P Problem List: (1) CHF exacerbation Status: Acute Plan: - Pt with CAD s/p 3v CABG in 2011 and A. fib presented with SOB, worsening LE edema with breakdown of lower ext skin and severe scrotal edema. Pt says he was going to lymphedema clinic for wraps and therapy in past. - Prior to admission his pcp doubled his Lasix last week w/out improvement. - He is noncompliant with CPAP for quite some time. - Pt presented with acute systolic CHF exacerbation - 2D echo (05/23/16) - Estimated EF 45-50%, no regional wall motion abnormalities - Mild to moderate tricuspid regurgitation - PA peak pressure 34mmHg - Pt's swelling seems multifactorial: CHF, untreated SUKUMAR, venous insufficiency and lymphedema, CKD, also stopped his Norvasc - Pt had placement of VasCath 06/10/16 - pt undergoing hemodialysis -permcath placed d/c to snf once outpt HD arrangement made. decidion for PD cath will be made later if pt continues to need permanent dialysis. (2) Atrial fibrillation Status: Chronic Plan: resume coumadin (3) CAD (coronary artery disease) Status: Chronic Plan: - s/p cabg x 3 2011. - Pt had V tach noted on telemetry - Cardiology following -tenzin neg for ischemia (4) HTN (hypertension) Status: Chronic Plan: - Cont home meds - Monitor (5) CKD (chronic kidney disease) stage 3, GFR 30-59 ml/min Status: Chronic Plan: - See above. Problem Qualifiers (1) CHF exacerbation: Qualified Code: I50.9 - Acute on chronic congestive heart failure, unspecified congestive heart failure type Alfonso Asif MD Jun 19, 2016 12:16
--- NOTE | 2016-06-19 15:15 | HHI.NPPN ---
Subjective Complaints: Obesity General Problems: Edema, Hypertension Renal Failure: Chronic, Acute Interval History Vascath exchanged for permcath yesterday. Seen during dialysis today. (Laisha Licea) Review of Systems General Constitutional: Fatigue (Laisha Licea) Cardiovascular Cardiac: Edema, LOW (Laisha Licea) Objective Data Data 06/18/16 06/19/16 19:00 07:00 Intake Total 0 ml 630 ml Output Total 300 ml Balance 0 ml 330 ml Intake Oral 0 ml 630 ml Output Urine Total 300 ml # Voids 2 # Bowel Movements 0 Vital Signs Date Time Temp Pulse Resp B/P Pulse Ox O2 Delivery O2 Flow Rate FiO2 06/19/16 13:14 98.4 88 20 125/56 94 06/19/16 08:00 97.5 63 20 134/63 98 06/19/16 08:00 96 Room Air 21 06/19/16 08:00 72 06/19/16 04:00 97.7 87 18 110/63 99 06/19/16 00:00 97.6 96 18 105/62 96 06/18/16 22:30 Room Air 06/18/16 20:00 64 06/18/16 20:00 97.6 67 18 112/67 100 06/18/16 17:01 70 18 151/62 100 06/18/16 16:45 72 18 159/61 99 06/18/16 16:45 66 20 159/61 99 06/18/16 16:30 86 18 137/48 99 06/18/16 16:15 78 19 145/72 99 06/18/16 16:00 98.8 77 20 142/74 100 06/18/16 16:00 97.2 81 20 108/55 94 06/18/16 15:57 98.8 77 20 142/74 98 (Laisha Licea) -: 06/17/16 0638 06/18/16 0651 Tubes & Lines: Perma-Cath Tubes & Lines Comment R IJ (Laisha Licea) Physical Exam General Appearance: Well Developed, Well Nourished, No Acute Distress, Comfortable, Obese (Laisha Licea) Eyes Eye Exam: Pupils Equal (Laisha Licea) Neck Neck Exam: Neck Supple (Laisha Licea) Pulmonary Resp Exam: Clear Bilaterally, Breath Sounds Equal, Decreased Bases (Laisha Licea) Cardiology CV Exam: Good Perfusion, Irregular (Laisha Licea) Gastrointestinal/Abdomen GI Exam: Soft, Non-Tender, Bowel Sounds Present, Distended (Laisha Licea) Genitourinary Exam: Clear Urine Remarks resolving scrotal edema (Laisha Licea) Musculoskeletal MS Exam: Joints Intact, Normal Tone (Laisha Licea) Integumentary Skin Exam: Clear, Warm, Dry, Intact (Laisha Licea) Extremeties Extremities Exam: Pedal Pulses Palpable, Moderate Edema, Dependent Edema ( Laisha Licea) Neurologic Neuro Exam: Alert, Awake, Oriented, Speech Clear, Moving All Extremities ( Laisha Licea) Psychiatric Psych Exam: Appropriate Responses (Laisha Licea) Assessment/Plan Discussed Condition With: Patient Assessment Summary: Hypertension, End Stage Renal Disease Problem List: (1) CKD (chronic kidney disease) stage 3, GFR 30-59 ml/min Plan: Renal function declined, dialysis initiated last week, is now on // HD schedule seen during dialysis today on a 3K, 350 BFR, goal 2000 ml his urine output has dropped since admission permcath placed yesterday, used today in dialysis without complication his creatinine was not this bad two weeks ago, leading me to believe aggressive diuresis may have contributed to ATN continue holding diuretics and ARB, follow renal function he will be transferred to outpatient [facility] for dialysis with diagnosis of Acute Renal Failure, has not been deemed ESRD as of now case management aware and working on this we may have to do 4 weeks of dialysis, then reevaluate the continued need at that time labs in am including phosphorus discussed with patient the plan of care if intermediate manager dialysis is necessary, he may be more suited for PD (2) CHF exacerbation Plan: monitor fluid volume status, adjust UF as tolerated (3) HTN (hypertension) Plan: On metoprolol, monitor heart rate (4) CAD (coronary artery disease) Plan: Previous coronary artery bypass graft No reports of chest pain (Laisha Licea) Plan patient was seen and examined. Agree with above assessment and plan. Outpatient dialysis arrangements at [facility]. (Donny Vidal MD) Problem Qualifiers (1) CHF exacerbation: Qualified Code: I50.9 - Acute on chronic congestive heart failure, unspecified congestive heart failure type Laisha Licea Jun 19, 2016 15:15 Donny Vidal MD Jun 20, 2016 14:24
[2016-06-19] MEDS: WARFARIN SOD 3 MG TAB PO SCH (16:52)
[2016-06-19] MEDS: TAMSULOSIN HCL 0.4 MG CAP PO SCH (21:54)
[2016-06-19] MEDS: SENNOSIDES 8.6 MG TAB PO SCH (21:54)
[2016-06-19] MEDS: ATORVASTATIN 20 MG TAB PO SCH (21:54)
[2016-06-20] VITALS: BP 119/56; PULSE 81; RESP 18; TEMP 97.8; O2SAT 97
[2016-06-20 06:51] LABS: AUTOMATED NEUTROPHIL # 3.8 TH/MM3 (1.8-7.7); BASOPHIL % 0.7 % (0.0-2.0); EOSINOPHIL # 0.3 TH/MM3 (0-0.4); EOSINOPHIL % 4.4 % (0.0-4.0); HEMATOCRIT 27.2 % (39.0-51.0); LYMPH % 20.4 % (9.0-44.0); LYMPHOCYTE # 1.2 TH/MM3 (1.0-4.8); MEAN CELL VOLUME 90.5 FL (80.0-100.0); MEAN CORPUSCULAR HEMOGLOBIN 28.7 PG (27.0-34.0); MEAN CORPUSCULAR HGB CONC 31.7 % (32.0-36.0); MONO % 10.5 % (0.0-8.0); PLATELET COUNT 98 TH/MM3 (150-450); WHITE BLOOD COUNT 5.9 TH/MM3 (4.0-11.0)
[2016-06-20 07:05] LABS: BICARBONATE 32.9 MEQ/L (21.0-32.0); POTASSIUM 4.8 MEQ/L (3.5-5.1)
[2016-06-20 07:38] LABS: HEMO FLAGS AUTO DIFF; SCAN/DIFF FINAL DIFF MANUAL
[2016-06-20 08:00] VITALS: BP 145/67; PULSE 88; PULSE 92; RESP 18; TEMP 98.1; O2SAT 95
--- NOTE | 2016-06-20 09:31 | RADRPT ---
EXAM DATE/TIME: 06/18/2016 00:00 [facility] COMPARISON: TEMP DIALYSIS CATHETER PLCMT W/US, RIGHT, June 10, 2016, 16:15. INDICATIONS : Patient with history of chronic kidney disease in need of non-tunnelled dialysis catheter removal. MEDICAL HISTORY : CKD, HTN, A-Fib, CHF, [place], Dialysis, Chronic edema, DVT SURGICAL HISTORY : Dialysis catheter, CABG X3, Umbilical hernia repair ENCOUNTER: Subsequent ACUITY: 1 month PAIN SCORE: 0/10 PROCEDURE : 1. Temporary central venous catheter removal. The prescribed catheter was removed intact and hemostasis was achieved with direct pressure. The sit e was dressed appropriately. The patient tolerated the procedure well. CONCLUSION: Uncomplicated catheter removal. Rudi Byrnes MD on June 20, 2016 at 9:29 Board Certified Radiologist. This report was verified electronically.
--- NOTE | 2016-06-20 09:37 | RADRPT ---
EXAM DATE/TIME: 06/18/2016 15:02 [facility] COMPARISON: TEMP CATH MONALISA CATH REM W/O FL NON-TUNNELLED, June 18, 2016, 0:00. INDICATIONS : Patient with history of chronic kidney disease in need of tunnelled dialysis catheter. MEDICAL HISTORY : CKD, HTN, A-Fib, CHF, FL, Dialysis, Chronic edema, DVT SURGICAL HISTORY : Dialysis catheter, CABG X3, Umbilical hernia repair ENCOUNTER: Subsequent ACUITY: 1 month PAIN SCORE: 0/10 FLUORO TIME: 1.7 minutes SEDATION TIME: 15 minutes ACCESS: Right internal jugular vein SEDATION: 1.) 2 mg midazolam (Versed) IV 2.) 150 mcg fentanyl (Sublimaze) IV Prophylactic antibiotics were administered with appropriate pre-procedure timing. Vancomycin within 2 hours of procedure, Ancef (or alternative) within 1 hour of procedure. DEVICE: 1. 15 Spanish dual lumen 23 cm Rosenberg II Plus catheter PROCEDURE : 1. Ultrasound-guided venipuncture. 2. PermaCath placement. 3. Conscious sedation with continuous EKG and oximetry monitoring. The risks, benefits and alternatives to the procedure were explained and verbal and written consent w as obtained. The site was prepped in sterile fashion. Full sterile technique was used, including ca p, mask, sterile gloves and gown and a large sterile sheet. Hand hygiene and 2% chlorhexidine and/or betadine/alcohol prep was utilized per protocol for cutaneous antisepsis. The skin and subcutaneous tissues were infiltrated with local anesthetic solution. With ultrasound and fluoroscopic guidance a dermatotomy was created over the prescribed vein. A micr opuncture set was used to access the targeted vein and serial dilatation was performed to accept the prescribed length catheter. A subcutaneous tunnel was created in a retrograde fashion the catheter w as pulled through the tunnel. The catheter was flushed and assembled and locked with heparin. The c atheter was sutured in place. Conscious sedation was performed with the prescribed dosages and duration as above. The patient tole rated the procedure well and there were no complications. EKG and oximetry remained stable throughou t the procedure. The patient was sent to post anesthesia recovery in stable condition. CONCLUSION: Uncomplicated PermaCath placement as above. Rudi Byrnes MD on June 20, 2016 at 9:35 Board Certified Radiologist. This report was verified electronically.
--- NOTE | 2016-06-20 10:03 | HHI.PR ---
Subjective Remarks he is in chair . no events overnight. Objective Vitals heart reg lung cta abd s/nt ext lower ext edema/opens sores much better scrotal edema much improved permcath. Vital Signs Date Time Temp Pulse Resp B/P Pulse Ox O2 Delivery O2 Flow Rate FiO2 06/20/16 00:00 97.8 81 18 119/56 97 06/19/16 21:00 Room Air 06/19/16 20:59 76 06/19/16 20:00 98.2 79 18 111/58 98 06/19/16 16:00 97.9 82 18 115/56 96 06/19/16 13:14 98.4 88 20 125/56 94 06/19/16 06/19/16 06/20/16 15:00 23:00 07:00 Intake Total 720 ml 120 ml Output Total 2000 ml 200 ml Balance -1280 ml -80 ml Intake Oral 720 ml 120 ml Output Urine Total 200 ml Hemodialysis 2000 ml # Voids 0 # Bowel Movements 0 0 Result Diagram: 06/20/16 0524 06/20/16 0524 Imaging Last Impressions Chest X-Ray 06/10/16 1620 Signed Impressions: Service Date/Time: Friday, June 10, 2016 16:24 - CONCLUSION: VasCath in good position. Da Byrnes MD FACR Catheter Placement X-Ray 06/10/16 0000 Signed Impressions: Service Date/Time: Friday, June 10, 2016 16:15 - CONCLUSION: Uncomplicated line placement as above. Connor Machado MD Lower Extremity Ultrasound 06/09/16 0000 Signed Impressions: Service Date/Time: Thursday, June 09, 2016 09:19 - CONCLUSION: Normal examination. Multiloculated Soria's cyst Trevor Serrano MD Knee X-Ray 06/09/16 0000 Signed Impressions: Service Date/Time: Thursday, June 09, 2016 08:32 - CONCLUSION: Marked joint space narrowing medially. No acute fracture Trevor Serrano MD Myocardial Perfusion Scan Nuc Med 05/28/16 0000 Signed Impressions: Service Date/Time: Saturday, May 28, 2016 13:27 - CONCLUSION: 1. Fixed perfusion defect in the inferolateral wall characteristic of prior myocardial infarction. Findings similar to 2012 exam. RISK CATEGORY: High (>3%% Annual Mortality Rate) Jareth Moreno MD Renal Ultrasound 05/27/16 0000 Signed Impressions: Service Date/Time: Friday, May 27, 2016 14:59 - CONCLUSION: 1. Early/mild chronic medical renal disease suspected. 2. No obstructive uropathy or other acute abnormality seen. 3. Nonvisualization of the urinary bladder, presumably empty. Abimael Nunez MD A/P Problem List: (1) CHF exacerbation Status: Acute Plan: - Pt with CAD s/p 3v CABG in 2011 and A. fib presented with SOB, worsening LE edema with breakdown of lower ext skin and severe scrotal edema. Pt says he was going to lymphedema clinic for wraps and therapy in past. - Prior to admission his pcp doubled his Lasix last week w/out improvement. - He is noncompliant with CPAP for quite some time. - Pt presented with acute systolic CHF exacerbation - 2D echo (05/23/16) - Estimated EF 45-50%, no regional wall motion abnormalities - Mild to moderate tricuspid regurgitation - PA peak pressure 34mmHg - Pt's swelling seems multifactorial: CHF, untreated SUKUMAR, venous insufficiency and lymphedema, CKD, also stopped his Norvasc - Pt had placement of VasCath 06/10/16 - pt undergoing hemodialysis -permcath placed d/c to snf once outpt HD arrangement made. decision for PD cath will be made later if pt continues to need permanent dialysis. Discussed with Dr Vidal At present the hold up for d/c is pt trying to get a specific snf and no bed available. will d/c once arrangement made. (2) Atrial fibrillation Status: Chronic Plan: resume coumadin (3) CAD (coronary artery disease) Status: Chronic Plan: - s/p cabg x 3 2011. - Pt had V tach noted on telemetry - Cardiology following -tenzin neg for ischemia (4) HTN (hypertension) Status: Chronic Plan: - Cont home meds - Monitor (5) CKD (chronic kidney disease) stage 3, GFR 30-59 ml/min Status: Chronic Plan: - See above. Problem Qualifiers (1) CHF exacerbation: Qualified Code: I50.9 - Acute on chronic congestive heart failure, unspecified congestive heart failure type Alfonso Asif MD Jun 20, 2016 10:03
[2016-06-20] MEDS ORDERED: POTASSIUM PHOSPHATE MONOBASIC 500 MG TAB PO ONE (11:00)
[2016-06-20 12:00] VITALS: BP 105/52; PULSE 75; RESP 18; TEMP 98; O2SAT 97
[2016-06-20] MEDS: ALLOPURINOL 100 MG TAB PO SCH (12:02)
[2016-06-20] MEDS: PANTOPRAZOLE SOD 40 MG DELAYED RELEASE TAB PO SCH (12:02)
[2016-06-20] MEDS: METOPROLOL SUCCINATE 50 MG EXTENDED RELEASE TAB PO SCH (12:02)
[2016-06-20] MEDS: SODIUM CHLORIDE 0.9% FLUSH 5 ML FLUSH IVF SCH ×2 (12:13→22:26)
--- NOTE | 2016-06-20 13:29 | HHI.NPPN ---
Subjective Complaints: Obesity General Problems: Edema, Hypertension Renal Failure: Chronic, Acute Interval History Sitting up in chair. No acute complaints but his appetite is not at baseline. Dialyzed yesterday without incident. (Laisha Licea) Review of Systems General Constitutional: Fatigue (Laisha Licea) Cardiovascular Cardiac: Edema, LOW (Laisha Licea) Objective Data Data 06/19/16 06/20/16 19:00 07:00 Intake Total 720 ml 120 ml Output Total 2000 ml 200 ml Balance -1280 ml -80 ml Intake Oral 720 ml 120 ml Output Urine Total 200 ml Hemodialysis 2000 ml # Voids 0 # Bowel Movements 0 0 Vital Signs Date Time Temp Pulse Resp B/P Pulse Ox O2 Delivery O2 Flow Rate FiO2 06/20/16 00:00 97.8 81 18 119/56 97 06/19/16 21:00 Room Air 06/19/16 20:59 76 06/19/16 20:00 98.2 79 18 111/58 98 06/19/16 16:00 97.9 82 18 115/56 96 (Laisha Licea) -: 06/20/16 0524 06/20/16 0524 Tubes & Lines: Perma-Cath Tubes & Lines Comment R IJ (Laisha Licea) Physical Exam General Appearance: Well Developed, Well Nourished, No Acute Distress, Comfortable, Obese (Laisha Licea) Eyes Eye Exam: Pupils Equal (Laisha Licea) Throat Throat Exam: Oral Mucosa [place] & Moist (Laisha Licea) Neck Neck Exam: Neck Supple (Laisha Licea) Pulmonary Resp Exam: Clear Bilaterally, Breath Sounds Equal, Decreased Bases (Laisha Licea) Cardiology CV Exam: Good Perfusion, Irregular (Laisha Licea) Gastrointestinal/Abdomen GI Exam: Soft, Non-Tender, Bowel Sounds Present, Distended (Laisha Licea) Genitourinary Exam: Clear Urine Remarks resolving scrotal edema (Laisha Licea) Musculoskeletal MS Exam: Joints Intact, Normal Tone (Laisha Licea) Integumentary Skin Exam: Clear, Warm, Dry, Intact (aLisha Licea) Extremeties Extremities Exam: Pedal Pulses Palpable, Moderate Edema, Dependent Edema ( Laisha Licea) Neurologic Neuro Exam: Alert, Awake, Oriented, Speech Clear, Moving All Extremities ( Laisha Licea) Psychiatric Psych Exam: Appropriate Responses (Laisha Licea) Assessment/Plan Discussed Condition With: Patient, Spouse Assessment Summary: Hypertension, End Stage Renal Disease Problem List: (1) CKD (chronic kidney disease) stage 3, GFR 30-59 ml/min Plan: Renal function declined, dialysis initiated last week, is now on // HD schedule He had 2 liter UF yesterday his urine output has dropped since admission permcath in place and functions well his creatinine was not this bad initially, leading me to believe aggressive diuresis may have contributed to ATN he will be discharged to continue dialysis at [facility] for Acute Renal failure, as has not been deemed ESRD as of now we may have to do 4 weeks of dialysis, then reevaluate the continued need at that time continue holding diuretics and ARB, follow renal function replace phosphorus, he is not on binders labs in am discussed with patient the plan of care if assisted dialysis is necessary, he may be more suited for PD (2) CHF exacerbation Plan: monitor fluid volume status, adjust UF as tolerated (3) HTN (hypertension) Plan: On metoprolol, monitor heart rate (4) CAD (coronary artery disease) Plan: Previous coronary artery bypass graft No reports of chest pain (Laisha Licea) Plan patient was seen and examined. Outpatient dialysis at [facility]. He may be discharged to rehab. Agree with above assessment and plan. (Donny Vidal MD) Problem Qualifiers (1) CHF exacerbation: Qualified Code: I50.9 - Acute on chronic congestive heart failure, unspecified congestive heart failure type Laisha Licea Jun 20, 2016 13:29 Donny Vidal MD Jun 20, 2016 14:52
[2016-06-20 16:00] VITALS: BP 124/61; PULSE 70; RESP 16; TEMP 97.8; O2SAT 98
[2016-06-20] MEDS: WARFARIN SOD 3 MG TAB PO SCH (16:00)
[2016-06-20 20:00] VITALS: PULSE 70
[2016-06-20] MEDS: TAMSULOSIN HCL 0.4 MG CAP PO SCH (22:26)
[2016-06-20] MEDS: SENNOSIDES 8.6 MG TAB PO SCH (22:26)
[2016-06-20] MEDS: oxyCODONE/ACETAMINOPHEN 7.5 MG/325 MG TAB PO PRN (22:26)
[2016-06-20] MEDS: ATORVASTATIN 20 MG TAB PO SCH (22:26)
[2016-06-21] VITALS (7 sets, daily range): BP systolic 115–130; BP diastolic 57–89; PULSE 58–148; RESP 18–24; TEMP 98–98.2; O2SAT 96–98
[2016-06-21 08:18] LABS: BICARBONATE 33.9 MEQ/L (21.0-32.0); POTASSIUM 4.5 MEQ/L (3.5-5.1)
--- NOTE | 2016-06-21 08:48 | HHI.PR ---
Subjective Remarks in chair. no new complaints Objective Vitals heart reg lung cta abd s/nt ext edema of legs/scrotum better. Vital Signs Date Time Temp Pulse Resp B/P Pulse Ox O2 Delivery O2 Flow Rate FiO2 06/21/16 04:00 Room Air 06/21/16 00:00 Room Air 06/21/16 00:00 98.2 62 18 124/59 98 06/20/16 20:00 70 06/20/16 20:00 Room Air 06/20/16 16:00 97.8 70 16 124/61 98 06/20/16 12:00 98.0 75 18 105/52 97 06/20/16 06/20/16 06/21/16 15:00 23:00 07:00 Intake Total 480 ml 240 ml 120 ml Output Total 25 ml 100 ml 50 ml Balance 455 ml 140 ml 70 ml Intake Oral 480 ml 240 ml 120 ml Output Urine Total 25 ml 100 ml 50 ml # Bowel Movements 0 0 0 Result Diagram: 06/20/16 0524 06/21/16 0653 Imaging Last Impressions Chest X-Ray 06/10/16 1620 Signed Impressions: Service Date/Time: Friday, June 10, 2016 16:24 - CONCLUSION: VasCath in good position. Da Byrnes MD FACR Catheter Placement X-Ray 06/10/16 0000 Signed Impressions: Service Date/Time: Friday, June 10, 2016 16:15 - CONCLUSION: Uncomplicated line placement as above. Connor Machado MD Lower Extremity Ultrasound 06/09/16 0000 Signed Impressions: Service Date/Time: Thursday, June 09, 2016 09:19 - CONCLUSION: Normal examination. Multiloculated Soria's cyst Trevor Serrano MD Knee X-Ray 06/09/16 0000 Signed Impressions: Service Date/Time: Thursday, June 09, 2016 08:32 - CONCLUSION: Marked joint space narrowing medially. No acute fracture Trevor Serrano MD Myocardial Perfusion Scan Nuc Med 05/28/16 0000 Signed Impressions: Service Date/Time: Saturday, May 28, 2016 13:27 - CONCLUSION: 1. Fixed perfusion defect in the inferolateral wall characteristic of prior myocardial infarction. Findings similar to 2012 exam. RISK CATEGORY: High (>3%% Annual Mortality Rate) Jareth Moreno MD Renal Ultrasound 05/27/16 0000 Signed Impressions: Service Date/Time: Friday, May 27, 2016 14:59 - CONCLUSION: 1. Early/mild chronic medical renal disease suspected. 2. No obstructive uropathy or other acute abnormality seen. 3. Nonvisualization of the urinary bladder, presumably empty. Abimael Nunez MD A/P Problem List: (1) CHF exacerbation Status: Acute Plan: - Pt with CAD s/p 3v CABG in 2011 and A. fib presented with SOB, worsening LE edema with breakdown of lower ext skin and severe scrotal edema. Pt says he was going to lymphedema clinic for wraps and therapy in past. - Prior to admission his pcp doubled his Lasix last week w/out improvement. - He is noncompliant with CPAP for quite some time. - Pt presented with acute systolic CHF exacerbation - 2D echo (05/23/16) - Estimated EF 45-50%, no regional wall motion abnormalities - Mild to moderate tricuspid regurgitation - PA peak pressure 34mmHg - Pt's swelling seems multifactorial: CHF, untreated SUKUMAR, venous insufficiency and lymphedema, CKD, also stopped his Norvasc - Pt had placement of VasCath 06/10/16 - pt undergoing hemodialysis -permcath placed d/c to snf once outpt HD arrangement made. decision for PD cath will be made later if pt continues to need permanent dialysis. Discussed with Dr Vidal At present the hold up for d/c is pt trying to get a specific snf and no bed available. will d/c once arrangement made. HD today. (2) Atrial fibrillation Status: Chronic Plan: resume coumadin (3) CAD (coronary artery disease) Status: Chronic Plan: - s/p cabg x 3 2011. - Pt had V tach noted on telemetry - Cardiology following -tenzin neg for ischemia (4) HTN (hypertension) Status: Chronic Plan: - Cont home meds - Monitor (5) CKD (chronic kidney disease) stage 3, GFR 30-59 ml/min Status: Chronic Plan: - See above. Assessment and Plan Problem Qualifiers (1) CHF exacerbation: Qualified Code: I50.9 - Acute on chronic congestive heart failure, unspecified congestive heart failure type Alfonso Asif MD Jun 21, 2016 08:48
[2016-06-21] MEDS: ALLOPURINOL 100 MG TAB PO SCH (09:00)
[2016-06-21] MEDS: PANTOPRAZOLE SOD 40 MG DELAYED RELEASE TAB PO SCH (09:20)
[2016-06-21] MEDS: SODIUM CHLORIDE 0.9% FLUSH 5 ML FLUSH IVF SCH ×2 (09:20→21:29)
[2016-06-21] MEDS: METOPROLOL SUCCINATE 50 MG EXTENDED RELEASE TAB PO SCH (09:20)
--- NOTE | 2016-06-21 14:17 | HHI.NPPN ---
Subjective Complaints: Obesity General Problems: Edema, Hypertension Renal Failure: Chronic, Acute Interval History patient was seen during dialysis today. He is comfortable. On 3K, UF goal is 2 liters. BFR is 350 ml/min. Tolerating it well. Review of Systems General Constitutional: Fatigue Cardiovascular Cardiac: Edema, LOW Objective Data Data 06/20/16 06/21/16 19:00 07:00 Intake Total 480 ml 360 ml Output Total 25 ml 150 ml Balance 455 ml 210 ml Intake Oral 480 ml 360 ml Output Urine Total 25 ml 150 ml # Bowel Movements 0 0 Vital Signs Date Time Temp Pulse Resp B/P Pulse Ox O2 Delivery O2 Flow Rate FiO2 06/21/16 09:06 Room Air 06/21/16 08:03 98.0 72 24 130/59 97 06/21/16 07:35 58 06/21/16 04:00 Room Air 06/21/16 00:00 Room Air 06/21/16 00:00 98.2 62 18 124/59 98 06/20/16 20:00 70 06/20/16 20:00 Room Air 06/20/16 16:00 97.8 70 16 124/61 98 -: 06/20/16 0524 06/21/16 0653 Tubes & Lines: Perma-Cath Tubes & Lines Comment R IJ Physical Exam General Appearance: Well Developed, Well Nourished, No Acute Distress, Comfortable, Obese Eyes Eye Exam: Pupils Equal Throat Throat Exam: Oral Mucosa [place] & Moist Neck Neck Exam: Neck Supple Pulmonary Resp Exam: Clear Bilaterally, Breath Sounds Equal, Decreased Bases Cardiology CV Exam: Good Perfusion, Irregular Gastrointestinal/Abdomen GI Exam: Soft, Non-Tender, Bowel Sounds Present, Distended Genitourinary Exam: Clear Urine Musculoskeletal MS Exam: Joints Intact, Normal Tone Integumentary Skin Exam: Clear, Warm, Dry, Intact Extremeties Extremities Exam: Pedal Pulses Palpable, Moderate Edema, Dependent Edema Neurologic Neuro Exam: Alert, Awake, Oriented, Speech Clear, Moving All Extremities Psychiatric Psych Exam: Appropriate Responses Assessment/Plan Discussed Condition With: Patient, Spouse Assessment Summary: Hypertension, End Stage Renal Disease Problem List: (1) CKD (chronic kidney disease) stage 3, GFR 30-59 ml/min Plan: Renal function declined, dialysis initiated last week, is now on M//F HD schedule UF 2 liters today. his urine output has dropped since admission PermCath in place. Unclear if he has reached ESRD. 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 Epogen with dialysis. (2) CHF exacerbation Plan: monitor fluid volume status, adjust UF as tolerated (3) HTN (hypertension) Plan: On metoprolol, monitor heart rate (4) CAD (coronary artery disease) Plan: Previous coronary artery bypass graft No reports of chest pain Plan Outpatient dialysis at [facility] has been arranged. He will be dialyzed MWF at 330PM. He can be discharged from renal standpoint. Problem Qualifiers (1) CHF exacerbation: Qualified Code: I50.9 - Acute on chronic congestive heart failure, unspecified congestive heart failure type Donny Vidal MD Jun 21, 2016 14:17
[2016-06-21] MEDS ORDERED: EPOETIN ALFA 10,000 UNITS/ML VIAL IV PRN (15:00)
[2016-06-21] MEDS: WARFARIN SOD 3 MG TAB PO SCH (15:21)
[2016-06-21] MEDS: SENNOSIDES 8.6 MG TAB PO SCH (21:29)
[2016-06-21] MEDS: ATORVASTATIN 20 MG TAB PO SCH (21:29)
[2016-06-21] MEDS: TAMSULOSIN HCL 0.4 MG CAP PO SCH (21:29)
[2016-06-22] VITALS: BP 116/58; PULSE 68; RESP 18; TEMP 98.1; O2SAT 96
[2016-06-22 04:00] VITALS: BP 123/98; PULSE 68; RESP 18; TEMP 98; O2SAT 98
[2016-06-22 07:23] LABS: INTERNATIONAL NORMALIZED RATIO 1.4 RATIO; PROTHROMBIN TIME - PATIENT 15.4 SEC (9.8-11.6)
[2016-06-22 08:04] VITALS: BP 122/56; PULSE 77; RESP 19; TEMP 97.9; O2SAT 95
--- NOTE | 2016-06-22 10:09 | HHI.NPPN ---
Subjective Complaints: Obesity General Problems: Edema, Hypertension Renal Failure: Chronic, Acute Interval History Underwent dialysis yesterday. Outpatient dialysis arrangements have been made at [facility] at 330PM MWF. He is cleared for discharge from renal standpoint. Review of Systems General Constitutional: Fatigue Cardiovascular Cardiac: Edema, LOW Objective Data Data 06/21/16 06/22/16 19:00 07:00 Intake Total 0 ml 122 ml Output Total 2100 ml 100 ml Balance -2100 ml 22 ml Intake Oral 0 ml 120 ml IV Total 2 ml Output Urine Total 100 ml 100 ml Hemodialysis 2000 ml # Bowel Movements 0 Vital Signs Date Time Temp Pulse Resp B/P Pulse Ox O2 Delivery O2 Flow Rate FiO2 06/22/16 08:04 97.9 77 19 122/56 95 06/22/16 04:00 98.0 68 18 123/98 98 06/22/16 00:00 98.1 68 18 116/58 96 06/21/16 21:30 Room Air 06/21/16 20:30 66 06/21/16 20:00 98.2 70 19 115/57 96 06/21/16 16:07 58 06/21/16 16:01 98.2 148 24 126/89 98 -: 06/20/16 0524 06/21/16 0653 Tubes & Lines: Perma-Cath Tubes & Lines Comment R IJ Physical Exam General Appearance: Well Developed, Well Nourished, No Acute Distress, Comfortable, Obese Eyes Eye Exam: Pupils Equal Throat Throat Exam: Oral Mucosa [place] & Moist Neck Neck Exam: Neck Supple Pulmonary Resp Exam: Clear Bilaterally, Breath Sounds Equal, Decreased Bases Cardiology CV Exam: Good Perfusion, Irregular Gastrointestinal/Abdomen GI Exam: Soft, Non-Tender, Bowel Sounds Present, Distended Genitourinary Exam: Clear Urine Musculoskeletal MS Exam: Joints Intact, Normal Tone Integumentary Skin Exam: Clear, Warm, Dry, Intact Extremeties Extremities Exam: Pedal Pulses Palpable, Moderate Edema, Dependent Edema Neurologic Neuro Exam: Alert, Awake, Oriented, Speech Clear, Moving All Extremities Psychiatric Psych Exam: Appropriate Responses Assessment/Plan Discussed Condition With: Patient, Spouse Assessment Summary: Hypertension, End Stage Renal Disease Problem List: (1) CKD (chronic kidney disease) stage 3, GFR 30-59 ml/min Plan: Renal function declined, dialysis initiated last week, is now on M// HD schedule UF 2 liters today. his urine output has dropped since admission PermCath in place. Unclear if he has reached ESRD. If no improvement in renal function in about 6 weeks, will have PD catheter placed for detention dialysis. Epogen with dialysis. (2) CHF exacerbation Plan: monitor fluid volume status, adjust UF as tolerated (3) HTN (hypertension) Plan: On metoprolol, monitor heart rate (4) CAD (coronary artery disease) Plan: Previous coronary artery bypass graft No reports of chest pain Problem Qualifiers (1) CHF exacerbation: Qualified Code: I50.9 - Acute on chronic congestive heart failure, unspecified congestive heart failure type Donny Vidal MD Jun 22, 2016 10:09
[2016-06-22] MEDS: SODIUM CHLORIDE 0.9% FLUSH 5 ML FLUSH IVF SCH ×2 (10:14→20:52)
[2016-06-22] MEDS: METOPROLOL SUCCINATE 50 MG EXTENDED RELEASE TAB PO SCH (10:14)
[2016-06-22] MEDS: ALLOPURINOL 100 MG TAB PO SCH (10:14)
[2016-06-22] MEDS: PANTOPRAZOLE SOD 40 MG DELAYED RELEASE TAB PO SCH (10:14)
--- NOTE | 2016-06-22 11:27 | HHI.PR ---
Subjective Remarks pt seems stable present Objective Vitals heart reg lung cta abd s/nt ext edema/scrotal edema/le ulcerations much better. Vital Signs Date Time Temp Pulse Resp B/P Pulse Ox O2 Delivery O2 Flow Rate FiO2 06/22/16 08:04 97.9 77 19 122/56 95 06/22/16 04:00 98.0 68 18 123/98 98 06/22/16 00:00 98.1 68 18 116/58 96 06/21/16 21:30 Room Air 06/21/16 20:30 66 06/21/16 20:00 98.2 70 19 115/57 96 06/21/16 16:07 58 06/21/16 16:01 98.2 148 24 126/89 98 06/21/16 06/21/16 06/22/16 15:00 23:00 07:00 Intake Total 0 ml 122 ml Output Total 2100 ml 100 ml Balance -2100 ml 22 ml Intake Oral 0 ml 120 ml IV Total 2 ml Output Urine Total 100 ml 100 ml Hemodialysis 2000 ml # Bowel Movements 0 Result Diagram: 06/20/16 0524 06/21/16 0653 Imaging Last Impressions Chest X-Ray 06/10/16 1620 Signed Impressions: Service Date/Time: Friday, June 10, 2016 16:24 - CONCLUSION: VasCath in good position. Da Byrnes MD FACR Catheter Placement X-Ray 06/10/16 0000 Signed Impressions: Service Date/Time: Friday, June 10, 2016 16:15 - CONCLUSION: Uncomplicated line placement as above. Connor Machado MD Lower Extremity Ultrasound 06/09/16 0000 Signed Impressions: Service Date/Time: Thursday, June 09, 2016 09:19 - CONCLUSION: Normal examination. Multiloculated Soria's cyst Trevor Serrano MD Knee X-Ray 06/09/16 0000 Signed Impressions: Service Date/Time: Thursday, June 09, 2016 08:32 - CONCLUSION: Marked joint space narrowing medially. No acute fracture Trevor Serrano MD Myocardial Perfusion Scan Nuc Med 05/28/16 0000 Signed Impressions: Service Date/Time: Saturday, May 28, 2016 13:27 - CONCLUSION: 1. Fixed perfusion defect in the inferolateral wall characteristic of prior myocardial infarction. Findings similar to 2012 exam. RISK CATEGORY: High (>3%% Annual Mortality Rate) Jareth Moreno MD Renal Ultrasound 05/27/16 0000 Signed Impressions: Service Date/Time: Friday, May 27, 2016 14:59 - CONCLUSION: 1. Early/mild chronic medical renal disease suspected. 2. No obstructive uropathy or other acute abnormality seen. 3. Nonvisualization of the urinary bladder, presumably empty. Abimael Nuenz MD A/P Problem List: (1) CHF exacerbation Status: Acute Plan: - Pt with CAD s/p 3v CABG in 2011 and A. fib presented with SOB, worsening LE edema with breakdown of lower ext skin and severe scrotal edema. Pt says he was going to lymphedema clinic for wraps and therapy in past. - Prior to admission his pcp doubled his Lasix last week w/out improvement. - He is noncompliant with CPAP for quite some time. - Pt presented with acute systolic CHF exacerbation - 2D echo (05/23/16) - Estimated EF 45-50%, no regional wall motion abnormalities - Mild to moderate tricuspid regurgitation - PA peak pressure 34mmHg - Pt's swelling seems multifactorial: CHF, untreated SUKUMAR, venous insufficiency and lymphedema, CKD, also stopped his Norvasc - Pt had placement of VasCath 06/10/16 - pt undergoing hemodialysis -permcath placed d/c to snf once outpt HD arrangement made. decision for PD cath will be made later if pt continues to need permanent dialysis. Discussed with Dr Vidal At present the hold up for d/c is pt trying to get a specific snf and no bed available. will d/c once arrangement made. I instructed pt that he will just have to choose a second option...as we must d/ c him after HD on Friday. (2) Atrial fibrillation Status: Chronic Plan: resume coumadin (3) CAD (coronary artery disease) Status: Chronic Plan: - s/p cabg x 3 2011. - Pt had V tach noted on telemetry - Cardiology following -tenzin neg for ischemia (4) HTN (hypertension) Status: Chronic Plan: - Cont home meds - Monitor (5) CKD (chronic kidney disease) stage 3, GFR 30-59 ml/min Status: Chronic Plan: - See above. Assessment and Plan Problem Qualifiers (1) CHF exacerbation: Qualified Code: I50.9 - Acute on chronic congestive heart failure, unspecified congestive heart failure type Alfonso Asif MD Jun 22, 2016 11:27
[2016-06-22 12:04] VITALS: BP 118/56; PULSE 71; RESP 19; TEMP 98.1; O2SAT 97
[2016-06-22] MEDS: WARFARIN SOD 3 MG TAB PO SCH (16:07)
[2016-06-22 16:14] VITALS: BP 99/58; PULSE 79; RESP 18; TEMP 97.6; O2SAT 97
[2016-06-22 20:00] VITALS: BP 119/59; PULSE 65; PULSE 74; RESP 18; TEMP 97.1; O2SAT 97
[2016-06-22] MEDS: SENNOSIDES 8.6 MG TAB PO SCH (20:51)
[2016-06-22] MEDS: ATORVASTATIN 20 MG TAB PO SCH (20:51)
[2016-06-22] MEDS: TAMSULOSIN HCL 0.4 MG CAP PO SCH (20:51)
[2016-06-22] MEDS: oxyCODONE/ACETAMINOPHEN 7.5 MG/325 MG TAB PO PRN (23:45)
[2016-06-23 00:30] VITALS: BP 117/58; PULSE 84; RESP 18; TEMP 97.8; O2SAT 97
[2016-06-23 06:50] LABS: INTERNATIONAL NORMALIZED RATIO 1.6 RATIO; PROTHROMBIN TIME - PATIENT 17.8 SEC (9.8-11.6)
[2016-06-23 08:34] VITALS: BP 112/59; PULSE 76; RESP 18; TEMP 98; O2SAT 95
[2016-06-23] MEDS: METOPROLOL SUCCINATE 50 MG EXTENDED RELEASE TAB PO SCH (09:00)
[2016-06-23] MEDS: PANTOPRAZOLE SOD 40 MG DELAYED RELEASE TAB PO SCH (09:51)
[2016-06-23] MEDS: ALLOPURINOL 100 MG TAB PO SCH (09:51)
[2016-06-23] MEDS: SODIUM CHLORIDE 0.9% FLUSH 5 ML FLUSH IVF SCH ×2 (09:51→20:31)
--- NOTE | 2016-06-23 11:14 | HHI.NPPN ---
Subjective Complaints: Obesity General Problems: Edema, Hypertension Renal Failure: Chronic, Acute Interval History Notes were reviewed. Appears to be stable. Review of Systems General Constitutional: Fatigue Cardiovascular Cardiac: Edema, LOW Objective Data Data 06/22/16 06/23/16 19:00 07:00 Intake Total 480 ml 360 ml Balance 480 ml 360 ml Intake Oral 480 ml 360 ml # Voids 2 # Bowel Movements 3 Vital Signs Date Time Temp Pulse Resp B/P Pulse Ox O2 Delivery O2 Flow Rate FiO2 06/23/16 08:34 98.0 76 18 112/59 95 06/23/16 00:30 97.8 84 18 117/58 97 06/22/16 20:00 65 06/22/16 20:00 97.1 74 18 119/59 97 06/22/16 20:00 Room Air 06/22/16 16:14 97.6 79 18 99/58 97 06/22/16 12:04 98.1 71 19 118/56 97 -: 06/20/16 0524 06/21/16 0653 Tubes & Lines: Perma-Cath Tubes & Lines Comment R IJ Physical Exam General Appearance: Well Developed, Well Nourished, No Acute Distress, Comfortable, Obese Eyes Eye Exam: Pupils Equal Throat Throat Exam: Oral Mucosa [place] & Moist Neck Neck Exam: Neck Supple Pulmonary Resp Exam: Clear Bilaterally, Breath Sounds Equal, Decreased Bases Cardiology CV Exam: Good Perfusion, Irregular Gastrointestinal/Abdomen GI Exam: Soft, Non-Tender, Bowel Sounds Present, Distended Genitourinary Exam: Clear Urine Musculoskeletal MS Exam: Joints Intact, Normal Tone Integumentary Skin Exam: Clear, Warm, Dry, Intact Extremeties Extremities Exam: Pedal Pulses Palpable, Moderate Edema, Dependent Edema Neurologic Neuro Exam: Alert, Awake, Oriented, Speech Clear, Moving All Extremities Psychiatric Psych Exam: Appropriate Responses Assessment/Plan Discussed Condition With: Patient, Spouse Assessment Summary: Hypertension, End Stage Renal Disease Problem List: (1) CKD (chronic kidney disease) stage 3, GFR 30-59 ml/min Plan: Renal function declined, dialysis initiated last week, is now on M/W/F HD schedule PermCath in place. Unclear if he has reached ESRD. If no improvement in renal function in about 6 weeks, will have PD catheter placed for supervisor intermediates dialysis. Epogen with dialysis. (2) CHF exacerbation Plan: monitor fluid volume status, adjust UF as tolerated (3) HTN (hypertension) Plan: On metoprolol, monitor heart rate (4) CAD (coronary artery disease) Plan: Previous coronary artery bypass graft No reports of chest pain Plan outpatient dialysis MWF at [facility] at 330 PM. He can be discharged from renal standpoint. Problem Qualifiers (1) CHF exacerbation: Qualified Code: I50.9 - Acute on chronic congestive heart failure, unspecified congestive heart failure type Donny Vidal MD Jun 23, 2016 11:14
--- NOTE | 2016-06-23 11:16 | HHI.PR ---
Subjective Remarks doing ok. Objective Vitals heent neg heart reg lung cta abd s/nte ext scrotal /leg edema much improved Vital Signs Date Time Temp Pulse Resp B/P Pulse Ox O2 Delivery O2 Flow Rate FiO2 06/23/16 08:34 98.0 76 18 112/59 95 06/23/16 00:30 97.8 84 18 117/58 97 06/22/16 20:00 65 06/22/16 20:00 97.1 74 18 119/59 97 06/22/16 20:00 Room Air 06/22/16 16:14 97.6 79 18 99/58 97 06/22/16 12:04 98.1 71 19 118/56 97 06/22/16 06/22/16 06/23/16 15:00 23:00 07:00 Intake Total 480 ml 240 ml 120 ml Balance 480 ml 240 ml 120 ml Intake Oral 480 ml 240 ml 120 ml # Voids 2 # Bowel Movements 3 Result Diagram: 06/20/16 0524 06/21/16 0653 Imaging Last Impressions Chest X-Ray 06/10/16 1620 Signed Impressions: Service Date/Time: Friday, June 10, 2016 16:24 - CONCLUSION: VasCath in good position. Da Byrnes MD FACR Catheter Placement X-Ray 06/10/16 0000 Signed Impressions: Service Date/Time: Friday, June 10, 2016 16:15 - CONCLUSION: Uncomplicated line placement as above. Connor Machado MD Lower Extremity Ultrasound 06/09/16 0000 Signed Impressions: Service Date/Time: Thursday, June 09, 2016 09:19 - CONCLUSION: Normal examination. Multiloculated Soria's cyst Trevor Serrano MD Knee X-Ray 06/09/16 0000 Signed Impressions: Service Date/Time: Thursday, June 09, 2016 08:32 - CONCLUSION: Marked joint space narrowing medially. No acute fracture Trevor Serrano MD Myocardial Perfusion Scan Nuc Med 05/28/16 0000 Signed Impressions: Service Date/Time: Saturday, May 28, 2016 13:27 - CONCLUSION: 1. Fixed perfusion defect in the inferolateral wall characteristic of prior myocardial infarction. Findings similar to 2012 exam. RISK CATEGORY: High (>3%% Annual Mortality Rate) Jareth Moreno MD Renal Ultrasound 05/27/16 0000 Signed Impressions: Service Date/Time: Friday, May 27, 2016 14:59 - CONCLUSION: 1. Early/mild chronic medical renal disease suspected. 2. No obstructive uropathy or other acute abnormality seen. 3. Nonvisualization of the urinary bladder, presumably empty. Abimael Nunez MD A/P Problem List: (1) CHF exacerbation Status: Acute Plan: - Pt with CAD s/p 3v CABG in 2011 and A. fib presented with SOB, worsening LE edema with breakdown of lower ext skin and severe scrotal edema. Pt says he was going to lymphedema clinic for wraps and therapy in past. - Prior to admission his pcp doubled his Lasix last week w/out improvement. - He is noncompliant with CPAP for quite some time. - Pt presented with acute systolic CHF exacerbation - 2D echo (05/23/16) - Estimated EF 45-50%, no regional wall motion abnormalities - Mild to moderate tricuspid regurgitation - PA peak pressure 34mmHg - Pt's swelling seems multifactorial: CHF, untreated SUKUMAR, venous insufficiency and lymphedema, CKD, also stopped his Norvasc - Pt had placement of VasCath 06/10/16 - pt undergoing hemodialysis -permcath placed d/c to snf once outpt HD arrangement made. decision for PD cath will be made later if pt continues to need permanent dialysis. Discussed with Dr Vidal At present the hold up for d/c is pt trying to get a specific snf and no bed available. will d/c once arrangement made. I instructed pt that he will just have to choose a second option...as we must d/ c him after HD on Friday. d/c orders written for snf tomorrow after HD> (2) Atrial fibrillation Status: Chronic Plan: resume coumadin (3) CAD (coronary artery disease) Status: Chronic Plan: - s/p cabg x 3 2011. - Pt had V tach noted on telemetry - Cardiology following -tenzin neg for ischemia (4) HTN (hypertension) Status: Chronic Plan: - Cont home meds - Monitor (5) CKD (chronic kidney disease) stage 3, GFR 30-59 ml/min Status: Chronic Plan: - See above. Assessment and Plan Problem Qualifiers (1) CHF exacerbation: Qualified Code: I50.9 - Acute on chronic congestive heart failure, unspecified congestive heart failure type Alfonso Asif MD Jun 23, 2016 11:16
[2016-06-23 12:04] VITALS: PULSE 66
[2016-06-23 12:14] VITALS: BP 115/56; PULSE 74; RESP 18; TEMP 98.1; O2SAT 95
[2016-06-23] MEDS ORDERED: COUM3TAB PO (14:58)
--- NOTE | 2016-06-23 15:00 | HHI.DCPOC ---
Discharge Care Plan Diagnosis: (1) Renal failure (ARF), acute on chronic (2) Venous insufficiency (3) CHF exacerbation (4) Atrial fibrillation (5) HTN (hypertension) (6) CAD (coronary artery disease) Goals to Promote Your Health * To prevent worsening of your condition and complications * To maintain your health at the optimal level Directions to Meet Your Goals Take your medications as prescribed Follow your dietary instruction Follow activity as directed Keep your appointments as scheduled Take your immunizations and boosters as scheduled If your symptoms worsen call your PCP, if no PCP go to Urgent Care Center or Emergency Room Smoking is Dangerous to Your Health. Avoid second hand smoke Call the 24-hour hour crisis hotline for domestic abuse at Alfonso Asif MD Jun 23, 2016 15:00
--- NOTE | 2016-06-23 15:02 | HHI.FF ---
Face to Face Verification Diagnosis: (1) Renal failure (ARF), acute on chronic (2) Venous insufficiency (3) Atrial fibrillation (4) CHF exacerbation (5) HTN (hypertension) (6) CAD (coronary artery disease) Physical Therapy Order: Evaluate and Treat, Improve ambulation Home Health Nursing Order: Medical education Signs/symptoms of disease process Nursing assessment with vital signs I have seen patient Ced Moody on 06/23/16. My clinical findings support the need for the requested home health care services because: Deconditioned w/ increased weakness I certify that my clinical findings support that this patient is homebound because: Unsteady gait/balance Alfonso Asif MD Jun 23, 2016 15:02
[2016-06-23] MEDS: oxyCODONE/ACETAMINOPHEN 7.5 MG/325 MG TAB PO PRN (15:58)
[2016-06-23] MEDS: WARFARIN SOD 3 MG TAB PO SCH (15:58)
[2016-06-23 16:14] VITALS: BP 136/66; PULSE 76; RESP 19; TEMP 98; O2SAT 98
[2016-06-23 20:00] VITALS: BP 119/55; PULSE 65; PULSE 73; PULSE 81; RESP 18; TEMP 98.1; O2SAT 97
[2016-06-23] MEDS: TAMSULOSIN HCL 0.4 MG CAP PO SCH (20:29)
[2016-06-23] MEDS: ATORVASTATIN 20 MG TAB PO SCH (20:30)
[2016-06-23] MEDS: SENNOSIDES 8.6 MG TAB PO SCH (20:31)
[2016-06-24] VITALS: BP 127/68; PULSE 77; RESP 18; TEMP 98.2; O2SAT 99
[2016-06-24] MEDS: oxyCODONE/ACETAMINOPHEN 7.5 MG/325 MG TAB PO PRN (02:20)
[2016-06-24 04:00] VITALS: BP 117/56; PULSE 85; RESP 18; TEMP 98.1; O2SAT 94
[2016-06-24 08:03] VITALS: BP 153/72; PULSE 87; RESP 24; TEMP 97.9; O2SAT 95
[2016-06-24] MEDS: ALLOPURINOL 100 MG TAB PO SCH (09:00)
[2016-06-24] MEDS: METOPROLOL SUCCINATE 50 MG EXTENDED RELEASE TAB PO SCH (09:00)
[2016-06-24] MEDS: SODIUM CHLORIDE 0.9% FLUSH 5 ML FLUSH IVF SCH (09:00)
[2016-06-24] MEDS: PANTOPRAZOLE SOD 40 MG DELAYED RELEASE TAB PO SCH (09:00)
--- NOTE | 2016-06-24 09:16 | HHI.NPPN ---
Subjective Complaints: Obesity General Problems: Edema, Hypertension Renal Failure: Chronic, Acute Interval History Seen during dialysis. To be discharged today. Review of Systems General Constitutional: Fatigue Cardiovascular Cardiac: Edema, LOW Objective Data Data 06/23/16 06/24/16 19:00 07:00 Intake Total 480 ml 400 ml Output Total 300 ml 300 ml Balance 180 ml 100 ml Intake Oral 480 ml 400 ml Output Urine Total 300 ml 300 ml # Bowel Movements 0 Vital Signs Date Time Temp Pulse Resp B/P Pulse Ox O2 Delivery O2 Flow Rate FiO2 06/24/16 04:00 98.1 85 18 117/56 94 06/24/16 00:00 98.2 77 18 127/68 99 06/23/16 20:00 98.1 73 18 119/55 97 06/23/16 20:00 Room Air 06/23/16 20:00 81 06/23/16 16:14 98.0 76 19 136/66 98 06/23/16 12:14 98.1 74 18 115/56 95 06/23/16 12:04 66 -: 06/20/16 0524 06/21/16 0653 Tubes & Lines: Perma-Cath Tubes & Lines Comment R IJ Physical Exam General Appearance: Well Developed, Well Nourished, No Acute Distress, Comfortable, Obese Eyes Eye Exam: Pupils Equal Throat Throat Exam: Oral Mucosa [place] & Moist Neck Neck Exam: Neck Supple Pulmonary Resp Exam: Clear Bilaterally, Breath Sounds Equal, Decreased Bases Cardiology CV Exam: Good Perfusion, Irregular Gastrointestinal/Abdomen GI Exam: Soft, Non-Tender, Bowel Sounds Present, Distended Genitourinary Exam: Clear Urine Remarks resolving scrotal edema Musculoskeletal MS Exam: Joints Intact, Normal Tone Integumentary Skin Exam: Clear, Warm, Dry, Intact Extremeties Extremities Exam: Pedal Pulses Palpable, Moderate Edema, Dependent Edema Neurologic Neuro Exam: Alert, Awake, Oriented, Speech Clear, Moving All Extremities Psychiatric Psych Exam: Appropriate Responses Assessment/Plan Discussed Condition With: Patient, Spouse Assessment Summary: Hypertension, End Stage Renal Disease Problem List: (1) CKD (chronic kidney disease) stage 3, GFR 30-59 ml/min Plan: Renal function declined, dialysis initiated this hospitalization, is now on M/W/F HD schedule PermCath in place. seen during dialysis today on a 2K, 350 BFR, goal 3L Unclear if he has reached ESRD. We will continue dialysis support outpatient - - (3:30 pm) at [facility] If no improvement in renal function in about 6 weeks, will have PD catheter placed for [facility] dialysis. continue Epogen with dialysis. (2) CHF exacerbation Plan: monitor fluid volume status, adjust UF as tolerated (3) HTN (hypertension) Plan: On metoprolol, monitor heart rate (4) CAD (coronary artery disease) Plan: Previous coronary artery bypass graft No reports of chest pain Plan He can be discharged from renal standpoint. Problem Qualifiers (1) CHF exacerbation: Qualified Code: I50.9 - Acute on chronic congestive heart failure, unspecified congestive heart failure type Laisha Licea Jun 24, 2016 09:16
[2016-06-24] MEDS ORDERED: NEBULIZER1 MI1 (10:52)
[2016-06-24] MEDS ORDERED: WALKER WHEELS/F1 MIS (10:52)
[2016-06-24] MEDS: HEPARIN SODIUM - IV 10,000 UNITS/10 ML VIAL PRN (12:17)
[2016-06-24] MEDS: GENTAMICIN SULFATE (DIALYSIS USE ONLY) 20 MG/2 ML VIAL IV PRN (12:17)
[2016-06-24] MEDS ORDERED: IPRA0.02 NEB (13:50)
[2016-06-24] MEDS ORDERED: LACT10SO PO (13:50)
[2016-06-24] MEDS ORDERED: ALBU0.08 NEB (13:50)
[2016-06-24] MEDS ORDERED: OXYC1TAB35 PO (13:50)
== END 2016-06-24 14:50 | disposition home health service (06) | DRG 291 ==
LOC: NEPE 18:46 → NEDA 05-23 03:26 → N06B 05-23 07:48 → HCIS 05-25 14:34 → N04B 05-31 23:55 → N04A 06-01 16:07 → HCIS 06-06 14:04 → N04B 06-10 21:06
PROVIDERS: ADMIT Hospitalist; ATTEND Hospitalist
PROC: 5A1D60Z (ICD-10-PCS; principal; 2016-06-11)
PROC: 05HM33Z Insertion of Infusion Device into Right Internal Jugular Vein, Percutaneous Approach (ICD-10-PCS; 2016-06-11)
PROC: B513ZZA Fluoroscopy of Right Jugular Veins, Guidance (ICD-10-PCS; 2016-06-11)
PROC: 05PYX3Z Removal of Infusion Device from Upper Vein, External Approach (ICD-10-PCS; 2016-06-20)
PROC: 05HM33Z Insertion of Infusion Device into Right Internal Jugular Vein, Percutaneous Approach (ICD-10-PCS; 2016-06-20)
PROC: B513ZZA Fluoroscopy of Right Jugular Veins, Guidance (ICD-10-PCS; 2016-06-20)
DX: I13.0 Hypertensive heart and chronic kidney disease with heart failure and stage 1 through stage 4 chronic kidney disease, or unspecified chronic kidney disease (principal); I50.23 Acute on chronic systolic (congestive) heart failure; N17.0 Acute kidney failure with tubular necrosis; I47.2 Ventricular tachycardia; N39.0 Urinary tract infection, site not specified; B96.5 Pseudomonas (aeruginosa) (mallei) (pseudomallei) as the cause of diseases classified elsewhere; N18.3 Chronic kidney disease, stage 3 (moderate); I48.91 Unspecified atrial fibrillation; E66.01 Morbid (severe) obesity due to excess calories; Z68.39 Body mass index [BMI] 39.0-39.9, adult; I25.10 Atherosclerotic heart disease of native coronary artery without angina pectoris; Z95.1 Presence of aortocoronary bypass graft; I25.2 Old myocardial infarction; I89.0 Lymphedema, not elsewhere classified; Z91.19 Patient's noncompliance with other medical treatment and regimen; G47.33 Obstructive sleep apnea (adult) (pediatric); N50.89 Other specified disorders of the male genital organs; I87.2 Venous insufficiency (chronic) (peripheral); I99.8 Other disorder of circulatory system; Z86.718 Personal history of other venous thrombosis and embolism; Z79.01 Long term (current) use of anticoagulants; E87.6 Hypokalemia; E78.00 Pure hypercholesterolemia, unspecified; N40.0 Benign prostatic hyperplasia without lower urinary tract symptoms; M81.0 Age-related osteoporosis without current pathological fracture; Z87.891 Personal history of nicotine dependence; Z86.73 Personal history of transient ischemic attack (TIA), and cerebral infarction without residual deficits
CPT/HCPCS: 36556; 36558; 36600; 71010; 73560; 76775; 76937; 77001; 80048; 80069; 80074; 80076; 81001; 82550; 82570; 82805; 83735; 83880; 84100; 84156; 84484; 85007; 85025; 85027; 85610; 85730; 87077; 87086; 87186; 90935; 93005; 93017; 93306; 93970; 94640; 94664; 96374; 96375; 99152; A9502; C1750; C1752; C1769; C9113; J1580; J1644; J1940; J1956; J2250; J2785; J3010; J7030; P9047; Q4081

== ENCOUNTER 2017-05-22 08:42 | Inpatient (IN) | payer MEDICARE ==
[~2017-05-22] VITALS: Ht 188 cm; Wt 143.0 kg
[2017-05-22] VITALS (15 sets, daily range): BP systolic 135–199; BP diastolic 62–98; PULSE 57–80; RESP 11–25; TEMP 97.8–98.8; O2SAT 93–100
[~2017-05-22 08:42] MED LIST changes: +ALBU0.08 NEB; -AMLO5TAB96 PO; +ATOR20TA15 PO; -ATOR20TA42 PO; -BACT800T5 PO; -COUM6TAB PO; +IPRA0.02 NEB; +LACT10SO PO; -LASI80TA PO; -LOSA25TA31 PO; -METO100T9 PO; +METO1TAB43 PO; +NEBULIZER1 MI1; +OXYC1TAB35 PO; -POTA1TAB4 PO; +SENO8.6T5 PO; +TAMS0.4C4 PO; -TAMS0.4C67 PO; -VITA-13 PO; +WALKER WHEELS/F1 MIS
--- NOTE | 2017-05-22 09:13 | PD ---
HPI Chief Complaint: generalized weakness. Time Seen by Provider: 08:45 Travel History International Travel<30 days: No Contact w/Intl Traveler<30days: No Traveled to known affect area: No History of Present Illness HPI This 81-year-old male is brought by ambulance. He lives at home with his family. She generally walks with a walker. He does have chronic lymphedema which is likely getting wrapped. The lymphedema has been getting more severe having a lot of pain in his right knee which makes it hard for him to bear weight at all. The last couple of days he's been complaining of pain on the right side of his neck and at that base of the skull on the right side. His says that he's been crying out with pain and she has been giving him Percocet for the pain. The last day or so he has not been extremely weak and has not been able to stand. He does use a wheelchair at home but is generally able to transfer. He has a history of right carotid endarterectomy. He says he has had a poor appetite and has not been eating. He has had renal failure in the past and has been on dialysis was able to come off dialysis when his kidney function improved. He has a history of congestive heart failure, atrial fibrillation. He is on Coumadin. He denies recent chest pain. His says that he is confused at times. PFSH Past Medical History Hx Anticoagulant Therapy: Yes Anemia: Yes Arthritis: Yes Asthma: No Atrial Fibrillation: Yes Blood Disorders: No Anxiety: No Depression: No Heart Rhythm Problems: No Cancer: No Cardiac Catheterization: Yes Cardiovascular Problems: Yes ([place] X3 CABGX3) High Cholesterol: Yes Chemotherapy: No Chest Pain: No Congestive Heart Failure: Yes (04/2012) COPD: No Cerebrovascular Accident: Yes Coronary Artery Disease: Yes Diabetes: No Diminished Hearing: No Deep Vein Thrombosis: Yes (BOTH LEGS?) Endocrine: No GERD: Yes Glaucoma: No Gout: Yes Genitourinary: Yes (BPH) Headaches: No Hepatitis: No Hypertension: Yes Immune Disorder: No Kidney Stones: No Musculoskeletal: Yes (OSTEOPOROSIS) Neurologic: Yes Psychiatric: No Reproductive: No Respiratory: Yes Migraines: No Myocardial Infarction: Yes Pneumonia: Yes (CHILDHOOD) Radiation Therapy: No Renal Failure: Yes (CRF) Seizures: No Sleep Apnea: Yes (DOESN'T USE CPAP) Thyroid Disease: No Past Surgical History Abdominal Surgery: Yes (Umbilical hernia repair) AICD: No Arteriovenous Shunt: No Cardiac Surgery: Yes (04/14/07 L CAROTID ENDARDECTOMY, CABG 04/2012) Coronary Artery Bypass Graft: Yes (2011) Ear Surgery: No Endocrine Surgery: No Eye Surgery: No Genitourinary Surgery: Yes (VASECTOMY) Gynecologic Surgery: No Insulin Pump: No Joint Replacement: No Oral Surgery: No Pacemaker: No Thoracic Surgery: No Other Surgery: Yes (UMBILICAL HERNIA 2002) Social History Alcohol Use: No Tobacco Use: No (QUIT) Substance Use: No Allergies-Medications (Allergen,Severity, Reaction): Coded Allergies: azithromycin (Verified Allergy, Severe, UNKNOWN, 05/22/17) enalaprilat (Verified Allergy, Severe, FACIAL EDEMA, 05/22/17) penicillin G (Verified Allergy, Severe, ANAPHYLAXIS, 05/22/17) Reported Meds & Prescriptions Reported Meds & Active Scripts Active Oxycodone-Acetaminophen 7.5-325 mg Tab 1 Tab PO Q4H PRN Walker with Front Wheels (Device) 1 Mis Mis 1 Ea .ROUTE DIRECTED Reported Metoprolol Succinate ER 24 HR (Metoprolol Succinate) 100 Mg Tab 100 Mg PO DAILY Losartan (Losartan Potassium) 50 Mg Tab 50 Mg PO DAILY Furosemide 40 Mg Tab 40 Mg PO DAILY Coumadin (Warfarin) 3 Mg Tab 3 Mg PO DAILY Tamsulosin (Tamsulosin HCl) 0.4 Mg Cap 0.4 Mg PO HS Atorvastatin (Atorvastatin Calcium) 20 Mg Tab 20 Mg PO HS Allopurinol 100 Mg Tab 100 Mg PO DAILY Review of Systems General / Constitutional: No: Fever, Chills Eyes: No: Diploplia HENT: Positive: Headaches, No: Sore Throat Cardiovascular: Positive: Irregular Rhythm, Edema, No: Chest Pain or Discomfort , Palpitations Respiratory: Positive: Cough Gastrointestinal: No: Vomiting, Diarrhea Genitourinary: No: Decreased Urinary Output, Pelvic Pain Musculoskeletal: Positive: Myalgias, Arthralgias Skin: No Rash, No Itching Psychiatric: No: Anxiety Physical Exam Narrative GENERAL: Well-developed male SKIN: Focused skin assessment warm/dry. HEAD: Atraumatic. Normocephalic. EYES: Pupils equal and round. No scleral icterus. No injection or drainage. ENT: No nasal bleeding or discharge. Mucous membranes pink and moist. NECK: Trachea midline. There is jugular venous distention. On palpating the neck and do not elicit any tenderness or swelling in the soft tissues CARDIOVASCULAR: Irregular rate and rhythm. No murmur appreciated. RESPIRATORY: No accessory muscle use. Clear to auscultation. Breath sounds equal bilaterally. GASTROINTESTINAL: Abdomen soft, non-tender, nondistended. Hepatic and splenic margins not palpable. MUSCULOSKELETAL: No obvious deformities. No clubbing. No cyanosis. Bilateral pedal edema. There is swelling and tenderness of the right knee. It is not warm or erythematous NEUROLOGICAL: Awake and alert. No obvious cranial nerve deficits. Motor grossly within normal limits. Normal speech. PSYCHIATRIC: Appropriate mood and affect; insight and judgment normal. Data Data Last Documented VS Vital Signs Date Time Temp Pulse Resp B/P (MAP) Pulse Ox O2 Delivery O2 Flow Rate FiO2 05/22/17 10:39 72 18 165/82 (109) 93 Room Air 05/22/17 08:52 98.3 Orders Orders Electrocardiogram (05/22/17 09:05) Complete Blood Count With Diff (05/22/17 09:05) Comprehensive Metabolic Panel (05/22/17 09:05) Prothrombin Time / Inr (Pt) (05/22/17 09:05) Act Partial Throm Time (Ptt) (05/22/17 09:05) Urinalysis - C+S If Indicated (05/22/17 09:05) Magnesium (Mg) (05/22/17 09:05) Chest, Single Ap (05/22/17 09:05) Ct Brain W/O Iv Contrast(Rout) (05/22/17 09:05) Ct Cerv Spine W/O Contrast (05/22/17 09:05) Knee, Complete (4vws) (05/22/17 09:05) B-Type Natriuretic Peptide (05/22/17 09:05) ^ Lab Follow Up (05/22/17 10:49) Prothrombin Complex Conc Inj (Kcentra In (05/22/17 11:30) Ceftriaxone Inj (Rocephin Inj) (05/22/17 11:00) Urine Culture (05/22/17 10:35) Patient Transfer (05/22/17 ) Neuro Checks ARNOLD.Q1H (05/22/17 11:05) ^ Medication Admin Instruction (05/22/17 11:05) Notify Dr: Other (05/22/17 11:05) Potassium Chlor 40 Meq Premix (Kcl 40 Me (05/22/17 11:15) Potassium Chlor 20 Meq Premix (Kcl 20 Me (05/22/17 11:15) Potassium Chloride Eff (K-Lyte Cl Eff) (05/22/17 11:15) Potassium Chlor 40 Meq Premix (Kcl 40 Me (05/22/17 11:15) Potassium Chlor 20 Meq Premix (Kcl 20 Me (05/22/17 11:15) Magnesium Sulfate Inj (Magnesium Sulfate (05/22/17 11:15) Magnesium Oxide (Mag-Ox) (05/22/17 11:15) Magnesium Sulfate Inj (Magnesium Sulfate (05/22/17 11:15) Potassium Phosphate (K-Phos) (05/22/17 11:15) Sodium Phosphate Inj (Sodium Phosphate I (05/22/17 11:15) Potassium Phosphate (K-Phos) (05/22/17 11:15) Potassium Phosphate Inj (Potassium Phosp (05/22/17 11:15) Cbc No Diff, Includes Plts (05/23/17 05:00) Cbc No Diff, Includes Plts (05/24/17 05:00) Cbc No Diff, Includes Plts (05/25/17 05:00) Cbc No Diff, Includes Plts (05/26/17 05:00) Cbc No Diff, Includes Plts (05/27/17 05:00) Cbc No Diff, Includes Plts (05/28/17 05:00) Cbc No Diff, Includes Plts (05/29/17 05:00) Basic Metabolic Panel (Bmp) (05/23/17 05:00) Basic Metabolic Panel (Bmp) (05/24/17 05:00) Basic Metabolic Panel (Bmp) (05/25/17 05:00) Basic Metabolic Panel (Bmp) (05/26/17 05:00) Basic Metabolic Panel (Bmp) (05/27/17 05:00) Basic Metabolic Panel (Bmp) (05/28/17 05:00) Basic Metabolic Panel (Bmp) (05/29/17 05:00) Labetalol Inj (Trandate Inj) (05/22/17 11:15) Hydralazine Inj (Apresoline Inj) (05/22/17 11:15) Nursing Bedside Swallow Assess .ONCE (05/22/17 11:05) ^ Other Nursing Orders (05/22/17 11:05) ^ Other Nursing Orders (05/22/17 11:05) ^ Other Nursing Orders (05/22/17 11:05) Inpatient Certification (05/22/17 11:05) Resp Ezpap/Pep Therapy (05/22/17 11:05) Resp Acapella/Pep/Chest Vibra (05/22/17 11:05) Resp Incentive Spirometry (05/22/17 11:05) Bedside Glucose ARNOLD.CSUGAR&03 (05/22/17 11:05) Blood Glucose Goal (Criteria) (05/22/17 11:05) Hypoglycemia 51 - 69 Mg/Dl (05/22/17 11:05) Hypoglycemia 50 Mg/Dl Or < (05/22/17 11:05) Notify Dr: Other (05/22/17 11:05) Dextrose 50% In Mera (Vial) Inj (D50w (Vi (05/22/17 11:15) Insulin Human Reg Supp Scale (Novolin R (05/22/17 12:00) Code Status (05/22/17 11:05) Vital Signs (Adult) ARNOLD.Q1H (05/22/17 11:05) Activity Bed Rest (05/22/17 11:05) Elevate Head Of Bed (05/22/17 11:05) Ondansetron Inj (Zofran Inj) (05/22/17 11:15) Albuterol-Ipratropium Neb (Duoneb Neb) (05/22/17 11:15) Pharmacist Intern / Telemetry ARNOLD.Q8H (05/22/17 11:05) Scd Bilateral/Knee High ARNOLD.BID (05/22/17 11:05) Pharmacologic Contraindication (05/22/17 11:05) ^ Initiate Protocol (05/22/17 11:05) Instruction (05/22/17 11:05) [facility] Nursing Information (05/22/17 11:15) Chlorhexidine 2% Cloth (Chlorhexidine 2% (05/23/17 04:00) Chlorhexidine 2% Cloth (Chlorhexidine 2% (05/22/17 11:15) Mrsa Pcr Surveillance (05/22/17 11:05) Docusate Sodium-Senna (Yamileth-Colace) (05/22/17 21:00) Magnesium Hydroxide Liq (Milk Of Magnesi (05/22/17 11:15) Coag Profile (05/23/17 05:00) Coag Profile (05/24/17 05:00) Coag Profile (05/25/17 05:00) Coag Profile (05/26/17 05:00) Coag Profile (05/27/17 05:00) Consult Neurosurgery (05/22/17 ) Labs Laboratory Tests Test 05/22/17 09:10 05/22/17 10:35 White Blood Count 6.6 TH/MM3 Red Blood Count 3.01 MIL/MM3 Hemoglobin 9.6 GM/DL Hematocrit 29.9 % Mean Corpuscular Volume 99.4 FL Mean Corpuscular Hemoglobin 31.9 PG Mean Corpuscular Hemoglobin Concent 32.1 % Red Cell Distribution Width 14.5 % Platelet Count 212 TH/MM3 Mean Platelet Volume 8.2 FL Neutrophils (%) (Auto) 78.0 % Lymphocytes (%) (Auto) 10.1 % Monocytes (%) (Auto) 7.9 % Eosinophils (%) (Auto) 1.4 % Basophils (%) (Auto) 2.6 % Neutrophils # (Auto) 5.1 TH/MM3 Lymphocytes # (Auto) 0.7 TH/MM3 Monocytes # (Auto) 0.5 TH/MM3 Eosinophils # (Auto) 0.1 TH/MM3 Basophils # (Auto) 0.2 TH/MM3 CBC Comment DIFF FINAL Differential Comment Prothrombin Time 21.7 SEC Prothromb Time International Ratio 2.1 RATIO Activated Partial Thromboplast Time 31.6 SEC Blood Urea Nitrogen 14 MG/DL Creatinine 1.70 MG/DL Random Glucose 130 MG/DL Total Protein 7.8 GM/DL Albumin 2.8 GM/DL Calcium Level 8.7 MG/DL Magnesium Level 1.7 MG/DL Alkaline Phosphatase 110 U/L Aspartate Amino Transf (AST/SGOT) 16 U/L Alanine Aminotransferase (ALT/SGPT) 9 U/L Total Bilirubin 2.9 MG/DL Sodium Level 138 MEQ/L Potassium Level 3.7 MEQ/L Chloride Level 97 MEQ/L Carbon Dioxide Level 32.0 MEQ/L Anion Gap 9 MEQ/L Estimat Glomerular Filtration Rate 47 ML/MIN B-Type Natriuretic Peptide 962 PG/ML Urine Color DARK YELLOW Urine Turbidity CLEAR Urine pH 6.0 Urine Specific [place] 1.021 Urine Protein TRACE mg/dL Urine Glucose (UA) NEG mg/dL Urine Ketones TRACE mg/dL Urine Occult Blood NEG Urine Nitrite NEG Urine Bilirubin SMALL Urine Leukocyte Esterase TRACE Urine RBC 0-3 /hpf Urine WBC 9-14 /hpf Urine WBC Clumps FEW Urine Squamous Epithelial Cells 0-5 /hpf Urine Transitional Epithelial Cells 0-5 /hpf Urine Calcium Oxalate Crystals FEW /hpf Urine Bacteria FEW /hpf Urine Hyaline Casts 3-5 /lpf Urine Mucus FEW /lpf Microscopic Urinalysis Comment CULTURE INDICATED MDM Medical Decision Making Medical Screen Exam Complete: Yes Emergency Medical Condition: Yes Medical Record Reviewed: Yes Differential Diagnosis Differential includes like slight imbalance, anemia, renal failure, CVA Narrative Course CT scan of the brain shows a large left subdural hygroma with chronic subacute and acute components. The collection measures upward of 2 cm in depth and results in a 1.2 cm [id number]-[id number] subfalcine shift. Chest x-ray shows mild left lung base airspace disease likely atelectasis. There is compensated cardiomegaly x-ray of the knee shows advanced degenerative osteoarthritis Diagnosis Primary Impression: Subdural hygroma Elio Patel MD May 22, 2017 09:13
[2017-05-22 09:19] LABS: AUTOMATED NEUTROPHIL # 5.1 TH/MM3 (1.8-7.7); BASOPHIL # 0.2 TH/MM3 (0-0.2); BASOPHIL % 2.6 % (0.0-2.0); EOSINOPHIL # 0.1 TH/MM3 (0-0.4); EOSINOPHIL % 1.4 % (0.0-4.0); HEMATOCRIT 29.9 % (39.0-51.0); HEMOGLOBIN 9.6 GM/DL (13.0-17.0); LYMPH % 10.1 % (9.0-44.0); LYMPHOCYTE # 0.7 TH/MM3 (1.0-4.8); MEAN CELL VOLUME 99.4 FL (80.0-100.0); MEAN CORPUSCULAR HEMOGLOBIN 31.9 PG (27.0-34.0); MEAN CORPUSCULAR HGB CONC 32.1 % (32.0-36.0); MEAN PLATELET VOLUME 8.2 FL (7.0-11.0); MONO % 7.9 % (0.0-8.0); MONOCYTE # 0.5 TH/MM3 (0-0.9); PLATELET COUNT 212 TH/MM3 (150-450); RED BLOOD COUNT 3.01 MIL/MM3 (4.50-5.90); RED CELL DISTRIBUTION WIDTH 14.5 % (11.6-17.2); WHITE BLOOD COUNT 6.6 TH/MM3 (4.0-11.0)
[2017-05-22 10:01] LABS: INTERNATIONAL NORMALIZED RATIO 2.1 RATIO; PROTHROMBIN TIME - PATIENT 21.7 SEC (9.8-11.6)
[2017-05-22 10:17] LABS: CHLORIDE 97 MEQ/L (98-107); SODIUM (NA) 138 MEQ/L (136-145)
[2017-05-22 10:20] LABS: CALCIUM 8.7 MG/DL (8.5-10.1)
[2017-05-22 10:21] LABS: GLUCOSE,RANDOM 130 MG/DL (74-106); MAGNESIUM 1.7 MG/DL (1.5-2.5)
[2017-05-22 10:22] LABS: ALBUMIN 2.8 GM/DL (3.4-5.0)
[2017-05-22 10:23] LABS: AST (GOT) 16 U/L (15-37)
[2017-05-22 10:24] LABS: GLOMERULAR FILTRATION RATE 47 ML/MIN (>89)
[2017-05-22 10:25] LABS: ALT (GPT) 9 U/L (12-78); BLOOD UREA NITROGEN 14 MG/DL (7-18); TOTAL BILIRUBIN ADULT 2.9 MG/DL (0.2-1.0); TOTAL PROTEIN 7.8 GM/DL (6.4-8.2)
[2017-05-22 10:28] LABS: ALKALINE PHOSPHATASE 110 U/L (45-117)
--- NOTE | 2017-05-22 10:30 | RADRPT ---
EXAM DATE/TIME: 05/22/2017 09:52 [facility] COMPARISON: No previous studies available for comparison. INDICATIONS : Right knee pain & inability to bear weight MEDICAL HISTORY : Myocardial infarction. Hypertension. CVA. Anticaogulant therapy. Atrial fibrillation. SURGICAL HISTORY : CABG Left carotid endarterectomy. Cardiac catheterization. Umbilical hernia repair. Vasectomy. Orthop edic surgery, right knee and hand. ENCOUNTER: Initial ACUITY: 2 days PAIN SCORE: 9/10 LOCATION: Right knee FINDINGS: Advanced tricompartmental degenerative osteoarthritis most prominently in the medial compartment with [id number] articulation. Osseous structures appear intact without definitive acute bony fracture. Mild chondrocalcinosis particularly in the lateral compartment. No significant joint effusion. Vascul ar calcifications noted in the popliteal artery. Soft tissues are grossly unremarkable. CONCLUSION: 1. Advanced tricompartmental degenerative osteoarthritis, most prominently in the medial compartment with essentially [id number]-ui-[id number] articulation. 2. No acute fracture or dislocation. Eavngelista Holder MD on May 22, 2017 at 10:24 Board Certified Radiologist. This report was verified electronically.
--- NOTE | 2017-05-22 10:32 | RADRPT ---
EXAM DATE/TIME: 05/22/2017 09:52 [facility] COMPARISON: CHEST SINGLE AP, June 10, 2016, 16:24. INDICATIONS : Weakness, connfusion, pain. MEDICAL HISTORY : : Myocardial infarction. Hypertension. CVA. Anticaogulant therapy. Atrial fibrillation. SURGICAL HISTORY : CABG Left carotid endarterectomy. Cardiac catheterization. Umbilical hernia repair. Vasectomy. Orthop edic surgery, right knee and hand. ENCOUNTER: Initial ACUITY: 2 days PAIN SCORE: 5/10 LOCATION: chest FINDINGS: Median sternotomy wires are in place. Mild left lung base airspace disease. Cardiac silhouette is enl arged. No new thorax is intact. CONCLUSION: 1. Mild left lung base airspace disease, likely atelectasis. 2. Compensated cardiomegaly. Evangelista Holder MD on May 22, 2017 at 10:29 Board Certified Radiologist. This report was verified electronically.
--- NOTE | 2017-05-22 10:51 | RADRPT ---
EXAM DATE/TIME: 05/22/2017 10:16 [facility] COMPARISON: CT BRAIN W/O CONTRAST, May 02, 2012, 15:07. INDICATIONS : Generalized weakness. RADIATION DOSE: 64.73 CTDIvol (mGy) MEDICAL HISTORY : Stroke. Congestive heart failure. Hypertension. SURGICAL HISTORY : Carotid endarterectomy. CABG ENCOUNTER: Initial ACUITY: 2 days PAIN SCALE: 3/10 LOCATION: Bilateral occipital TECHNIQUE: Multiple contiguous axial images were obtained of the head. Using automated exposure control and adj ustment of the mA and/or kV according to patient size, radiation dose was kept as low as reasonably a chievable to obtain optimal diagnostic quality images. DICOM format image data is available electro nically for review and comparison. FINDINGS: CEREBRUM: Interval development of a large subdural hygroma with chronic, subacute and acute components. Subdura l measures up to 2 cm in depth and exerts significant mass effect on the adjacent cerebral with an ap proximate 1.2 cm left to right subfalcine shift. Stable old lacunar type in the right caudate head. POSTERIOR FOSSA: The cerebellum and brainstem are intact. The 4th ventricle is midline. The cerebellopontine angle i s unremarkable. EXTRACRANIAL: The visualized portion of the orbits is intact. SKULL: The calvaria is intact. No evidence of skull fracture. CONCLUSION: 1. Interval development of a large left subdural hygroma with chronic, subacute and acute components. Collection measures upwards of 2 cm in depth and results in a 1.2 cm left to right subfalcine shift. 2. 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 3. Results were called to Dr. Rodriguez in the ED at the time of this dictation. Sandro Andrews MD on May 22, 2017 at 10:42 Board Certified Radiologist. This report was verified electronically.
[2017-05-22 10:54] LABS: BILIRUBIN, URINE SMALL (NEG); BLOOD, URINE NEG (NEG); GLUCOSE,URINE NEG (NEG); KETONE, URINE TRACE mg/dL (NEG); NITRITE,URINE NEG (NEG); URINE LEUKOCYTE ESTERASE TRACE (NEG)
[2017-05-22 11:00] LABS: URINE COLOR DARK YELLOW (YELLW/STRAW)
[2017-05-22] MEDS ORDERED: cefTRIAXone INJ 1,000 MG in SODIUM CHLORIDE 0.9% INJ 100 ML IV ONE (11:00)
[2017-05-22] MEDS ORDERED: FURO40TA PO (11:01)
[2017-05-22] MEDS ORDERED: LOSA50TA PO (11:01)
[2017-05-22] MEDS ORDERED: METO1TAB43 PO (11:01)
[2017-05-22 11:03] LABS: MUCUS URINE FEW /lpf (OCC)
[2017-05-22 11:04] LABS: RBC, URINE 0-3 /hpf (0-3); WHITE BLOOD CELL CLUMPS FEW
[2017-05-22 11:05] LABS: BACTERIA, URINE FEW /hpf; CALCIUM OXALATE CRYSTALS,URINE FEW /hpf; SQUAMOUS EPITHELIAL CELL URINE 0-5 /hpf (0-5); TRANSITIONAL EPI CELLS, URINE 0-5 /hpf
--- NOTE | 2017-05-22 11:12 | RADRPT ---
EXAM DATE/TIME: 05/22/2017 10:16 [facility] COMPARISON: No previous studies available for comparison. INDICATIONS : Right side neck pain; patient denies trauma. RADIATION DOSE: 26.64 CTDIvol (mGy) MEDICAL HISTORY : Stroke. Congestive heart failure. Hypertension. SURGICAL HISTORY : Carotid endarterectomy. CABG ENCOUNTER: Initial ACUITY: 2 days PAIN SCALE: 6/10 LOCATION: Right neck TECHNIQUE: Volumetric scanning of the cervical spine was performed. Multiplanar reconstructions in the sagittal, coronal and oblique axial planes were performed. Using automated exposure control and adjustment o f the mA and/or kV according to patient size, radiation dose was kept as low as reasonably achievable to obtain optimal diagnostic quality images. DICOM format image data is available electronically f or review and comparison. FINDINGS: VERTEBRAE: There is osteopenia and diffuse primary bony degenerative changes throughout the cervical spine. No a cute bony fracture is demonstrated. ALIGNMENT: No evidence of subluxation. C2-C3: The bony spinal canal is normal in size. No evidence of disc bulge or herniation. The neural forami na are bilaterally patent. Bilateral facet arthritis, right greater than left. C3-C4: The bony spinal canal is normal in size. No evidence of disc bulge or herniation. The neural forami na are bilaterally patent. Bilateral facet arthritis. C4-C5: Mild focal central bulging. Mild narrowing of the left neural foramina. Right neural foramen is paten t. Bilateral facet arthritis. C5-C6: The bony spinal canal is normal in size. No evidence of disc bulge or herniation. The neural forami na are bilaterally patent. Bilateral facet arthritis. C6-C7: Small focal central bulging. The neural foramina are patent bilaterally. Bilateral facet arthritis. C7-T1: The bony spinal canal is normal in size. No evidence of disc bulge or herniation. The neural forami na are bilaterally patent. Bilateral facet arthritis. CONCLUSION: 1. No acute bony fracture. 2. Diffuse primary bony degenerative changes throughout the cervical spine 3. Bilateral facet arthritis at multiple levels. 4. Focal central bulging at C4-5 and C6-7. Drew Jha MD on May 22, 2017 at 11:05 Board Certified Radiologist. This report was verified electronically.
[2017-05-22] MEDS ORDERED: SODIUM PHOSPHATE INJ 30 MMOL in SODIUM CHLOR 0.9% 250 ML INJ 240 ML IV PRN (11:15)
[2017-05-22] MEDS ORDERED: MAGNESIUM SULFATE INJ 2 GM in SODIUM CHLORIDE 0.9% INJ 96 ML IV PRN (11:15)
[2017-05-22] MEDS ORDERED: LABETALOL HCL 100 MG/20 ML VIAL IV PUSH PRN (11:15)
[2017-05-22] MEDS ORDERED: POTASSIUM PHOSPHATE MONOBASIC 500 MG TAB PO PRN (11:15)
[2017-05-22] MEDS ORDERED: POTASSIUM CHLOR 20 MEQ PREMIX 100 ML IV PRN ×2 (11:15)
[2017-05-22] MEDS ORDERED: DEXTROSE 50% IN WATER 50 ML VIAL(D50) IV PUSH PRN (11:15)
[2017-05-22] MEDS ORDERED: MISCELLANEOUS NURSING INFORMATION XX SCH (11:15)
[2017-05-22] MEDS ORDERED: RESP: ALBUTEROL 2.5 MG/IPRATROPIUM 0.5 MG NEB (PRN) INH (11:15)
[2017-05-22] MEDS ORDERED: POTASSIUM CHLOR 40 MEQ PREMIX 100 ML IV PRN ×2 (11:15)
[2017-05-22] MEDS ORDERED: POTASSIUM PHOSPHATE INJ 30 MMOL in SODIUM CHLOR 0.9% 250 ML INJ 250 ML IV PRN (11:15)
[2017-05-22] MEDS ORDERED: MAGNESIUM SULFATE INJ 4 GM in SODIUM CHLORIDE 0.9% INJ 92 ML IV PRN (11:15)
[2017-05-22] MEDS ORDERED: MAGNESIUM HYDROXIDE SUSP 30 ML CUP PO PRN (11:15)
[2017-05-22] MEDS ORDERED: MAGNESIUM OXIDE 400 MG TAB PO PRN (11:15)
[2017-05-22] MEDS ORDERED: ONDANSETRON HCL 4 MG/2 ML VIAL IV PUSH PRN (11:15)
[2017-05-22] MEDS ORDERED: POTASSIUM PHOSPHATE MONOBASIC 500 MG TAB PO/TUBE PRN (11:15)
[2017-05-22] MEDS ORDERED: CHLORHEXIDINE GLUCONATE 2 % 1 PACK (2 CLOTHS) TOP PRN (11:15)
[2017-05-22] MEDS ORDERED: POTASSIUM CHLORIDE 25 MEQ EFFERVESCENT TAB PO PRN (11:15)
[2017-05-22] MEDS ORDERED: PROTHROMBIN COMPLEX CONC INJ 2,000 UNITS in SYRINGE/BAG 1 EA IV ONE (11:30)
[2017-05-22] MEDS: INSULIN NovoLIN REGULAR SUPPLEMENTAL SCALE SQ SCH ×3 (12:00→21:00)
[2017-05-22] MEDS ORDERED: ACETAMINOPHEN 325 MG TAB PO PRN (12:45)
[2017-05-22] MEDS ORDERED: diphenhydrAMINE HCL 25 MG CAP PO PRN (12:45)
[2017-05-22] MEDS ORDERED: SODIUM CHLOR 0.9% 250 ML INJ 250 ML IV ONE (12:45)
[2017-05-22] MEDS: hydrALAZINE HCL 20 MG/ML VIAL IV PUSH PRN (13:40)
[2017-05-22] MEDS ORDERED: PHYTONADIONE 10 MG/ML VIAL SQ ONE (14:00)
--- NOTE | 2017-05-22 15:02 | HHI.HP ---
HPI Service Critical Care Medicine Primary Care Physician Vipul Eid MD Admission Diagnosis SUBDURAL HYGROMA Diagnosis: Chief Complaint: Altered mental status Travel History International Travel<30 Days: No Contact w/Intl Traveler <30 Da: No Traveled to Known Affected Are: No History of Present Illness 81 y/o right-handed man has developed worsening lethargy and absent-mindedness over past week or more. Family states his memory has deteriorated and he is lethargic. CT Head reveals large left hygroma with considerable mass effect and midline shift. He is on chronic coumadin for a-fib and INR 2.1 in ED. Received Kcentra and FFP for reversal. History obtained from 3 family members at the bedside. Patient is verbal but speech is slow with pauses. Review of Systems ROS Neck ache, sleepy. Past Family Social History Allergies: Coded Allergies: azithromycin (Verified Allergy, Severe, UNKNOWN, 05/22/17) enalaprilat (Verified Allergy, Severe, FACIAL EDEMA, 05/22/17) penicillin G (Verified Allergy, Severe, ANAPHYLAXIS, 05/22/17) Past Medical History Past Medical History Hx Anticoagulant Therapy: Yes Anemia: Yes Arthritis: Yes Asthma: No Atrial Fibrillation: Yes Blood Disorders: No Anxiety: No Depression: No Heart Rhythm Problems: No Cancer: No Cardiac Catheterization: Yes Cardiovascular Problems: Yes (IN X3 CABGX3) High Cholesterol: Yes Chemotherapy: No Chest Pain: No Congestive Heart Failure: Yes (04/2012) COPD: No Cerebrovascular Accident: Yes Coronary Artery Disease: Yes Diabetes: No Diminished Hearing: No Deep Vein Thrombosis: Yes (BOTH LEGS?) Endocrine: No GERD: Yes Glaucoma: No Gout: Yes Genitourinary: Yes (BPH) Headaches: No Hepatitis: No Hypertension: Yes Immune Disorder: No Kidney Stones: No Musculoskeletal: Yes (OSTEOPOROSIS) Neurologic: Yes Psychiatric: No Reproductive: No Respiratory: Yes Migraines: No Myocardial Infarction: Yes Pneumonia: Yes (CHILDHOOD) Radiation Therapy: No Renal Failure: Yes (CRF) Seizures: No Sleep Apnea: Yes (DOESN'T USE CPAP) Thyroid Disease: No Past Surgical History Abdominal Surgery: Yes (Umbilical hernia repair) AICD: No Arteriovenous Shunt: No Cardiac Surgery: Yes (04/14/07 L CAROTID ENDARDECTOMY, CABG 04/2012) Coronary Artery Bypass Graft: Yes (2011) Ear Surgery: No Endocrine Surgery: No Eye Surgery: No Genitourinary Surgery: Yes (VASECTOMY) Gynecologic Surgery: No Insulin Pump: No Joint Replacement: No Oral Surgery: No Pacemaker: No Thoracic Surgery: No Other Surgery: Yes (UMBILICAL HERNIA 2002) Social History Alcohol Use: No Tobacco Use: No (QUIT) Substance Use: No Allergies-Medications Allergies-Medications (Allergen,Severity, Reaction): Coded Allergies: azithromycin (Verified Allergy, Severe, UNKNOWN, 05/22/17) enalaprilat (Verified Allergy, Severe, FACIAL EDEMA, 05/22/17) penicillin G (Verified Allergy, Severe, ANAPHYLAXIS, 05/22/17) Reported Meds & Prescriptions Reported Meds & Active Scripts Active Oxycodone-Acetaminophen 7.5-325 mg Tab 1 Tab PO Q4H PRN Walker with Front Wheels (Device) 1 Mis Mis 1 Ea .ROUTE DIRECTED Reported Metoprolol Succinate ER 24 HR (Metoprolol Succinate) 100 Mg Tab 100 Mg PO DAILY Losartan (Losartan Potassium) 50 Mg Tab 50 Mg PO DAILY Furosemide 40 Mg Tab 40 Mg PO DAILY Coumadin (Warfarin) 3 Mg Tab 3 Mg PO DAILY Tamsulosin (Tamsulosin HCl) 0.4 Mg Cap 0.4 Mg PO HS Atorvastatin (Atorvastatin Calcium) 20 Mg Tab 20 Mg PO HS Allopurinol 100 Mg Tab 100 Mg PO DAILY Physical Exam Vital Signs Vital Signs Date Time Temp Pulse Resp B/P (MAP) Pulse Ox O2 Delivery O2 Flow Rate FiO2 05/22/17 12:21 78 17 157/85 (109) 93 Room Air 05/22/17 12:17 98.3 78 17 178/97 (124) 96 05/22/17 11:20 77 18 174/98 (123) 96 Nasal Cannula 2.00 05/22/17 10:39 72 18 165/82 (109) 93 Room Air 05/22/17 10:30 66 17 165/83 (110) 97 Nasal Cannula 05/22/17 08:52 98.3 78 16 151/76 (101) 94 Physical Exam Gen: Conversant, slow speech. Head: Normal. Neck: Supple, airway widely patent. Lungs: Clear, no wheezes or crackles. Heart: Irreg Irreg, No JVD. Abdomen: Soft, nontender, no guarding. Extremities: Bilateral postphlebitic legs with diffuse edema and brawny induration. Well perfused. Neuro: Right handed.Speech slow but clear. Lethargic but wakes quickly to voice. Moves 4 limbs to command. Laboratory Laboratory Tests Test 05/22/17 09:10 05/22/17 10:35 White Blood Count 6.6 Red Blood Count 3.01 Hemoglobin 9.6 Hematocrit 29.9 Mean Corpuscular Volume 99.4 Mean Corpuscular Hemoglobin 31.9 Mean Corpuscular Hemoglobin Concent 32.1 Red Cell Distribution Width 14.5 Platelet Count 212 Mean Platelet Volume 8.2 Neutrophils (%) (Auto) 78.0 Lymphocytes (%) (Auto) 10.1 Monocytes (%) (Auto) 7.9 Eosinophils (%) (Auto) 1.4 Basophils (%) (Auto) 2.6 Neutrophils # (Auto) 5.1 Lymphocytes # (Auto) 0.7 Monocytes # (Auto) 0.5 Eosinophils # (Auto) 0.1 Basophils # (Auto) 0.2 CBC Comment DIFF FINAL Differential Comment Prothrombin Time 21.7 Prothromb Time International Ratio 2.1 Activated Partial Thromboplast Time 31.6 Blood Urea Nitrogen 14 Creatinine 1.70 Random Glucose 130 Total Protein 7.8 Albumin 2.8 Calcium Level 8.7 Magnesium Level 1.7 Alkaline Phosphatase 110 Aspartate Amino Transf (AST/SGOT) 16 Alanine Aminotransferase (ALT/SGPT) 9 Total Bilirubin 2.9 Sodium Level 138 Potassium Level 3.7 Chloride Level 97 Carbon Dioxide Level 32.0 Anion Gap 9 Estimat Glomerular Filtration Rate 47 B-Type Natriuretic Peptide 962 Urine Color DARK YELLOW Urine Turbidity CLEAR Urine pH 6.0 Urine Specific [place] 1.021 Urine Protein TRACE Urine Glucose (UA) NEG Urine Ketones TRACE Urine Occult Blood NEG Urine Nitrite NEG Urine Bilirubin SMALL Urine Leukocyte Esterase TRACE Urine RBC 0-3 Urine WBC 9-14 Urine WBC Clumps FEW Urine Squamous Epithelial Cells 0-5 Urine Transitional Epithelial Cells 0-5 Urine Calcium Oxalate Crystals FEW Urine Bacteria FEW Urine Hyaline Casts 3-5 Urine Mucus FEW Microscopic Urinalysis Comment CULTURE INDICATED Date/Time Source Procedure Growth Status 05/22/17 10:35 Urine Clean Catch Urine Culture Pending Received Result Diagram: 05/22/17 0910 05/22/17 0910 Caprini VTE Risk Assessment Caprini VTE Risk Assessment: Mod/High Risk (score >= 2) Caprini Risk Assessment Model Point Value = 1 Point Value = 2 Point Value = 3 Point Value = 5 Age 41-60 Minor surgery BMI > 25 kg/m2 Swollen legs Varicose veins or History of unexplained or recurrent spontaneous Oral contraceptives or hormone replacement Sepsis (< 1 month) Serious lung disease, including pneumonia (< 1 month) Abnormal pulmonary function Acute myocardial infarction Congestive heart failure (< 1 month) History of inflammatory bowel disease Medical patient at bed rest Age 61-74 Arthroscopic surgery Major open surgery (> 45 min) Laparoscopic surgery (> 45 min) Malignancy Confined to bed (> 72 hours) Immobilizing plaster cast Central venous access Age >= 75 History of VTE Family history of VTE Factor V Leiden Prothrombin [id number] Lupus anticoagulant Anticardiolipin antibodies Elevated serum homocysteine Heparin-induced thrombocytopenia Other congenital or acquired thrombophilia Stroke (< 1 month) Elective arthroplasty Hip, pelvis, or leg fracture Acute spinal cord injury (< 1 month) Prophylaxis Regimen Total Risk Factor Score Risk Level Prophylaxis Regimen 0-1 Low Early ambulation 2 Moderate Order ONE of the following: *Sequential Compression Device (SCD) *Heparin 5000 units SQ BID 3-4 Higher Order ONE of the following medications: *Heparin 5000 units SQ TID *Enoxaparin/Lovenox 40 mg SQ daily (WT < 150 kg, CrCl > 30 mL/min) *Enoxaparin/Lovenox 30 mg SQ daily (WT < 150 kg, CrCl > 10-29 mL/min) *Enoxaparin/Lovenox 30 mg SQ BID (WT < 150 kg, CrCl > 30 mL/min) AND/OR *Sequential Compression Device (SCD) 5 or more Highest Order ONE of the following medications: *Heparin 5000 units SQ TID (Preferred with Epidurals) *Enoxaparin/Lovenox 40 mg SQ daily (WT < 150 kg, CrCl > 30 mL/min) *Enoxaparin/Lovenox 30 mg SQ daily (WT < 150 kg, CrCl > 10-29 mL/min) *Enoxaparin/Lovenox 30 mg SQ BID (WT < 150 kg, CrCl > 30 mL/min) AND *Sequential Compression Device (SCD) Assessment and Plan Assessment and Plan Assessment: 1. Large left subdural hygroma. 2. Coagulopathy - Warfarin 3. Permanent atrial fibrillation. 4. Postphlebitic legs with diffuse edema. 5. Altered mental status. Plan: 1. Complete reversal of coumadin. 2. Confirm correction of INR. 3. No antiplatelet drugs for now. 4. NPO. 5. HOB up 30 degrees. 6. Continue diuretics. 7. Neurosurgical evaluation. Overall impression: Considerable mass effect from large left hygroma. Likely will require evacuation. Anson Velazquez MD May 22, 2017 15:02
[2017-05-22] MEDS ORDERED: FUROSEMIDE 40 MG TAB PO ONE (15:30)
[2017-05-22 20:43] LABS: INTERNATIONAL NORMALIZED RATIO 1.6 RATIO; PROTHROMBIN TIME - PATIENT 15.8 SEC (9.8-11.6)
--- NOTE | 2017-05-22 20:59 | MB ---
cc: EDILSON JACKSON MD, WAGID F. MD WILLIAMS,JASMYNE Potts MD DATE OF CONSULTATION 05/22/17 CONSULTATIONS Left multi-loculated subdural hemorrhage. HISTORY OF PRESENT ILLNESS An 81-year-old gentleman who was brought into [facility] emergency room with progressive decline in his neurologic status. For the past at least a month or so he has complained of headaches on the right side the head and the neck and also in levels of alertness and confusion along with generalized weakness, particularly the right side. He was using a walker to ambulate up until about two weeks ago when even getting him a wheelchair was difficult as his legs would give out on him. He has a poor appetite and in the last several weeks has not eaten much at all. He has a history of renal failure and makes urine but not much, according to the and, at one point, was on dialysis but he is off it now. He is on Coumadin ever since his heart coronary bypass surgery in 2011 for atrial fibrillation and also has a history of congestive heart failure. A CT scan of the head obtained reveals a large left hemisphere multi-loculated subdural hemorrhage, subacute and chronic with three areas of loculations and septations, small areas of acute hemorrhage. There is about 12 mm of [id number] midline shift and the subdural hemorrhage measures 19 mm in maximal thickness with effacement of the left lateral ventricle from the compression. CT of the cervical spine reveals multilevel degenerative changes with some mild disk protrusions but no fractures noted. PAST MEDICAL HISTORY 1. Coronary artery grafting times three. 2. History of myocardial infarction x3. 3. Congestive heart failure, 4. History of DVTs, 5. Lymphedema in the lower extremities, 6. Atrial fibrillation, 7. Chronic renal failure, 8. Gastroesophageal reflux, 9. Gout, 10. Benign prostatic hypertrophy, 11. Osteoporosis, 12. Sleep apnea, 13. Left carotid endarterectomy, 14. Vasectomy, 15. Umbilical hernia repair. MEDICATIONS 1. Allopurinol 100 mg daily. 2. Atorvastatin 20 mg q.h.s. 3. Lasix 40 mg daily. 4. Losartan 50 mg daily. 5. Metoprolol 100 mg daily. 6. Percocet 7.5/325 one q.4 h p.r.n. pain. 7. Flomax 0.4 mg q.h.s. 8. Coumadin 3 mg daily. ALLERGIES PENICILLIN ENALAPRIL AZITHROMYCIN SOCIAL HISTORY He is and his is here along with his son and [id number]. He is a former smoker and usually drinks a few beverages of alcohol. REVIEW OF SYSTEMS Pertinent positives includes generalized weakness with inability to ambulate for the last two weeks, in a wheelchair, poor appetite, confusion, lethargy, history of constipation and low urine output, chronic history of lower extremity swelling and lymphedema. Chronic history of diffuse myalgia. He does have some cough but not very productive, otherwise, review of systems is negative for all other systems. LABORATORY DATA PT 21.7, INR 2.1, PTT 31.6. White blood cell count 6.6, hemoglobin 9.6, platelet count 212. Sodium 138, potassium 3.7, BUN 14, creatinine 1.7, glucose 130. PHYSICAL EXAMINATION VITAL SIGNS: Temperature 98.3, pulse is 78, respiratory rate 17, blood pressure 157/85, oxygen saturation 93% on room air. HEAD: No Hernandez's or raccoon sign. NECK: Supple with complaints right paraspinal pain with neck movement. CHEST: Clear bilaterally HEART: Irregular rhythm. No murmurs. ABDOMEN: Soft, nontender. No guarding or rigidity or hepatosplenomegaly noted. EXTREMITIES: He has extensive pitting edema on the lower extremities, in particular bilaterally. No deformity. SKIN: No skin breakdown or rashes noted. GENERAL: This is an elderly black male who is laying in a stretcher in no acute distress. NEUROLOGIC: He is awake, alert. He is not oriented to location or exact date. Pupils are equal, reactive. Extraocular muscles intact. Face - slight right facial droop. Tongue is midline. He moves all four extremities with generalized weak weakness, although right upper and lower extremity is weaker than the left. Equivocal Babinski. Does appreciate light touch sensation bilaterally. His speech is very limited with a few words and prolonged pauses and does appear to have some degree of aphasia. He does follow simple commands readily. IMPRESSION 1. Large left frontotemporal parietal multi-loculated subacute on chronic subdural hemorrhage with significant mass effect and midline shift. 2. Atrial fibrillation on chronic Coumadin therapy. 3. History of renal failure. 4. Congestive heart failure, history of coronary artery bypass grafting. PLAN I have had a lengthy discussion with the patient's as well as family at bedside and I recommended correction of his PT/INR which is being undertaken with prothrombin complex infusion as well as he has also received two units of FFP and 10 mg of vitamin K. Repeat PT/INR is pending. I have recommended a left craniotomy for evacuation of this multi-loculated subdural hemorrhages and lysis of the subdural membranes. The risks and benefits involved have been discussed and multiple questions were answered and no guarantees given. Risk of re-bleed, especially given his comorbidities was also discussed and the need for extended prolonged rehabilitation with the severity of his symptoms was also discussed. The risks associated with holding anticoagulation, particularly atrial fibrillation with stroke and coronary complications were also discussed. They are requesting to proceed with the surgery and accordingly once the PT INR is corrected, we will proceed tomorrow morning. Informed consent was obtained. Recommend mechanical DVT prophylaxis along with correction of hypokalemia prior to surgery. His condition obviously is critical with a guarded prognosis. MD AZIZA Romeo/ /6:39 PM /8:05 PM
[2017-05-22] MEDS: DOCUSATE SODIUM 50 MG/SENNA 8.6 MG TAB PO SCH (21:00)
[2017-05-22] MEDS: oxyCODONE/ACETAMINOPHEN 7.5 MG/325 MG TAB PO PRN (21:39)
[2017-05-22] MEDS: METOPROLOL TARTRATE 100 MG TAB PO SCH (21:39)
--- NOTE | 2017-05-22 21:54 | EKG ---
Date Performed: 05/22/2017 Time Performed: 09:14:31 PTAGE: 81 years EKG: ATRIAL FIBRILLATION NONSPECIFIC ST & T-WAVE ABNORMALITY ABNORMAL ECG PREVIOUS TRACING : 05/22/2016 23.55 Compared to prior tracing no significant change DOCTOR: Ángel Carpenter Interpretating Date/Time 05/22/2017 21:53:17
[2017-05-22] MEDS: POTASSIUM CHLOR 20 MEQ PREMIX 100 ML IV SCH (23:05)
[2017-05-23] VITALS (16 sets, daily range): BP systolic 105–170; BP diastolic 48–99; PULSE 59–84; RESP 12–28; TEMP 97.4–98.8; O2SAT 96–100
[2017-05-23] MEDS: oxyCODONE/ACETAMINOPHEN 7.5 MG/325 MG TAB PO PRN (01:42)
[2017-05-23] MEDS: INSULIN NovoLIN REGULAR SUPPLEMENTAL SCALE SQ SCH (03:00)
[2017-05-23] MEDS: POTASSIUM CHLOR 20 MEQ PREMIX 100 ML IV SCH (03:51)
[2017-05-23] MEDS: CHLORHEXIDINE GLUCONATE 2 % 1 PACK (2 CLOTHS) TOP SCH (04:00)
[2017-05-23 04:37] LABS: HEMATOCRIT 30.5 % (39.0-51.0); HEMOGLOBIN 9.9 GM/DL (13.0-17.0); MEAN CELL VOLUME 98.9 FL (80.0-100.0); MEAN CORPUSCULAR HEMOGLOBIN 32.2 PG (27.0-34.0); MEAN CORPUSCULAR HGB CONC 32.5 % (32.0-36.0); MEAN PLATELET VOLUME 8.2 FL (7.0-11.0); PLATELET COUNT 199 TH/MM3 (150-450); RED BLOOD COUNT 3.08 MIL/MM3 (4.50-5.90); WHITE BLOOD COUNT 5.9 TH/MM3 (4.0-11.0)
[2017-05-23 04:53] LABS: INTERNATIONAL NORMALIZED RATIO 1.5 RATIO
[2017-05-23 05:06] LABS: BICARBONATE 31.9 MEQ/L (21.0-32.0); CALCIUM 8.9 MG/DL (8.5-10.1); CREATININE 1.64 MG/DL (0.60-1.30)
[2017-05-23] MEDS ORDERED: PHYTONADIONE INJ 10 MG in SODIUM CHLORIDE 0.9% INJ 50 ML IV ONE (06:30)
[2017-05-23] MEDS ORDERED: BUPIVACAINE/EPINEPHRINE 0.5% 50 ML VIAL ONE (07:09)
[2017-05-23] MEDS ORDERED: FUROSEMIDE 40 MG/4 ML VIAL ONE (07:10)
[2017-05-23] MEDS ORDERED: THROMBIN (TOPICAL) 5,000 UNIT VIAL ONE (07:10)
[2017-05-23] MEDS ORDERED: MANNITOL INJ 100 ML ONE (07:10)
[2017-05-23] MEDS ORDERED: GELFOAM SIZE 100 ONE (07:10)
[2017-05-23] MEDS ORDERED: SODIUM CHLORIDE 0.9% 20 ML VIAL ONE (07:10)
[2017-05-23] MEDS ORDERED: GENTAMICIN SULFATE 80 MG/2 ML VIAL ONE ×2 (07:10→08:31)
[2017-05-23] MEDS ORDERED: VANCOMYCIN HCL 1000 MG VIAL ONE (07:15)
[2017-05-23] MEDS ORDERED: levETIRAcetam 500 MG/5 ML VIAL IV ONE (07:58)
[2017-05-23] MEDS: METOPROLOL TARTRATE 100 MG TAB PO SCH ×2 (09:00→19:35)
[2017-05-23] MEDS ORDERED: CLINDAMYCIN PHOS 600 MG/4 ML VIAL ONE (09:21)
--- NOTE | 2017-05-23 09:30 | HHI.CCPN ---
Subjective Remarks/Hospital Course 81 y/o right-handed man has developed worsening lethargy and absent-mindedness over past week or more. Family states his memory has deteriorated and he is lethargic. CT Head reveals large left hygroma with considerable mass effect and midline shift. He is on chronic coumadin for a-fib and INR 2.1 in ED. Received Kcentra and FFP for reversal. History obtained from 3 family members at the bedside. Patient is verbal but speech is slow with pauses. 05/23: No change in neurological function. Patient has received 3 separate reversal products for coagulopathy and is ready for the OR. Objective Vital Signs Date Time Temp Pulse Resp B/P (MAP) Pulse Ox O2 Delivery O2 Flow Rate FiO2 05/23/17 08:00 98 Nasal Cannula 2 05/23/17 08:00 97.9 64 18 174/80 (111) Intake and Output 05/23/17 05/23/17 05/24/17 08:00 16:00 00:00 Intake Total 100 ml Balance 100 ml Result Diagram: 05/23/17 0413 05/23/17 041 Objective Remarks Gen: Conversant, slow speech. Head: Normal. Neck: Supple, airway widely patent. Lungs: Clear, no wheezes or crackles. Protecst airway well. Heart: Irreg Irreg, No JVD. Rate 70s Abdomen: Soft, nontender, no guarding. Extremities: Bilateral postphlebitic legs with diffuse edema and brawny induration. Well perfused. Neuro: Right handed.Speech slow but clear. Lethargic but wakes quickly to voice. Moves 4 limbs to command. A/P Assessment and Plan Assessment: 1. Large left subdural hygroma. 2. Coagulopathy - Warfarin 3. Permanent atrial fibrillation. 4. Postphlebitic legs with diffuse edema. 5. Altered mental status. Plan: 1. Complete reversal of coumadin. 2. Confirm correction of INR. 3. No antiplatelet drugs for now. 4. NPO. 5. HOB up 30 degrees. 6. Continue diuretics. 7. Neurosurgical evaluation. Overall impression: Considerable mass effect from large left hygroma. Will require evacuation after reversal of coagulopathy. Family understands seriousness of his condition. Anson Velazquez MD May 23, 2017 09:30
[2017-05-23] MEDS ORDERED: BISACODYL 10 MG SUPP RECTAL PRN (10:15)
[2017-05-23] MEDS ORDERED: SODIUM CHLORIDE 0.9% FLUSH 10 ML FLUSH IV FLUSH PRN (10:15)
[2017-05-23] MEDS ORDERED: SENNOSIDES 8.6 MG TAB PO PRN (10:15)
[2017-05-23] MEDS ORDERED: LACTULOSE SYRUP 20 GM/30 ML CUP PO PRN (10:15)
[2017-05-23] MEDS ORDERED: ALUMINUM/MAGNESIUM/SIMETH 30 ML CUP PO PRN (10:15)
[2017-05-23] MEDS ORDERED: LABETALOL HCL 100 MG/20 ML VIAL IV PUSH PRN (10:15)
[2017-05-23] MEDS ORDERED: MAGNESIUM HYDROXIDE SUSP 30 ML CUP PO PRN (10:15)
[2017-05-23] MEDS ORDERED: cloNIDine HCL 0.1 MG TAB PO PRN (10:15)
[2017-05-23] MEDS ORDERED: LORazepam 2 MG/ML VIAL IV PUSH PRN (10:15)
--- NOTE | 2017-05-23 10:21 | PD.OP ---
Vipul Eid MD Operative Report Date of Surgery: May 23, 2017 Preoperative Diagnosis: Left frontotemporal parietal subacute and chronic multiloculated subdural hemorrhage Postoperative Diagnosis: Same Procedure: Left craniotomy for subdural hemorrhage evacuation Anesthesia: Gen. endotracheal by Dennis vargas Surgeon: Alex Hall M.D. Blemish Remover(s): Sharri Clancy Operation and Findings: Following initiation of a general endotracheal anesthesia the patient had invasive lines and Rice catheter in place along with the sequential compression device. Clindamycin 600 mg and Keppra 1 gm was administered intravenously and he was positioned with the left side up on a shoulder roll and head secured on a horseshoe headrest. The left frontal and parietal areas shaved and prepped with ChloraPrep and sterilely draped in the usual sterile fashion. A linear incision site was then made after infiltrating the scalp was 0.5% Marcaine with epinephrine solution a skin incision made extending onto the galea and superior temporalis muscle fascia. Alycia clips were used at the scalp edges for hemostasis and the flap retracted with a Weitlaner. With an automated offset pressman sunday hole was made and with the craniotome the bone flap elevated. The dura was opened in a cruciate form and subdural hemorrhage under pressure was identified a partially clotted subacute and more liquefied chronic blood with loculations noted. Loculations were lysed and the subdural hemorrhage evacuated with the irrigation of the subdural space until the fluid was more clear. The brain remained depressed from the inner table. A subdural drain was and also place which was exited through a separate site and secured to the scalp. The dura was approximated using 4 Nurolon interrupted stitches and the bone flap approximated using [place] mini plates. The temporalis muscle and fascia and then galea was then approximated using 2-0 Vicryl Sutures and final scalp closure was with anthony. A sterile pressure dressing was then applied and the patient taken to the recovery room. There were no intraoperative complications and all sponge and needle count was correct at the end of the procedure. Estimated blood loss about 25 cc. Alex Hall MD May 23, 2017 10:21
[2017-05-23] MEDS ORDERED: *morphine SULFATE 10 MG/ML PERIprocedure ONLY ONE (10:51)
[2017-05-23] MEDS ORDERED: MORPHINE SULFATE 2 MG/ML INJ IV PRN (11:15)
[2017-05-23] MEDS ORDERED: LORazepam 2 MG/ML VIAL IV PUSH ONE (11:30)
[2017-05-23] MEDS ORDERED: hydrALAZINE HCL 20 MG/ML VIAL IV PUSH PRN (11:45)
[2017-05-23] MEDS ORDERED: ESMOLOL HCL 100 MG/10 ML VIAL IV ONE (12:00)
[2017-05-23] MEDS ORDERED: LABETALOL HCL 100 MG/20 ML VIAL IV ONE (12:00)
[2017-05-23] MEDS ORDERED: ePHEDrine/NS 25 MG/5 ML SYRINGE IV ONE (12:00)
[2017-05-23] MEDS ORDERED: NORMOSOL R INJ 1,000 ML IV ONE (12:00)
[2017-05-23] MEDS ORDERED: LIDOCAINE HCL 1% PF 5 ML SYRINGE OTHER ONE (12:00)
[2017-05-23] MEDS ORDERED: NEOSTIGMINE 5 MG/5 ML SYRINGE IV PUSH ONE (12:00)
[2017-05-23] MEDS ORDERED: GLYCOPYRROLATE 1 MG/5 ML SYRINGE IV PUSH ONE (12:00)
[2017-05-23] MEDS ORDERED: ROCURONIUM INJ 50 MG/5 ML SYRINGE IV PUSH ONE (12:00)
[2017-05-23] MEDS ORDERED: PROPOFOL 200 MG/20 ML AMP IV ONE (12:00)
[2017-05-23] MEDS ORDERED: ONDANSETRON HCL 4 MG/2 ML VIAL IV ONE (12:00)
[2017-05-23] MEDS ORDERED: LACTATED RINGER'S 1000 ML INJ 1,000 ML IV ONE (12:00)
[2017-05-23] MEDS ORDERED: PHENYLEPH/NS 1000 MCG/10 ML SYR IV ONE (12:00)
[2017-05-23] MEDS: LOSARTAN 50 MG TAB PO SCH (12:46)
[2017-05-23] MEDS: ATORVASTATIN 20 MG TAB PO SCH (12:46)
[2017-05-23] MEDS: DOCUSATE SODIUM 50 MG/SENNA 8.6 MG TAB PO SCH ×2 (12:46→20:54)
[2017-05-23] MEDS: FUROSEMIDE 40 MG TAB PO SCH (12:47)
[2017-05-23] MEDS ORDERED: ACETAMINOPHEN/HYDROcodone 325 MG/10 MG TAB PO PRN (15:00)
[2017-05-23] MEDS ORDERED: CLINDAMYCIN 600 MG/DEX PREMIX 50 ML IV SCH (16:00)
[2017-05-23] MEDS: hydrALAZINE HCL 20 MG/ML VIAL IV PUSH PRN (20:43)
[2017-05-23] MEDS: levETIRAcetam INJ 500 MG in SODIUM CHLORIDE 0.9% INJ 100 ML IV SCH (20:44)
[2017-05-23] MEDS: SODIUM CHLORIDE 0.9% FLUSH 10 ML FLUSH IV FLUSH SCH (20:54)
[2017-05-23] MEDS: CLINDAMYCIN 600 MG/NS PREMIX 50 ML IV SCH (23:04)
[2017-05-24] VITALS (12 sets, daily range): BP systolic 119–142; BP diastolic 42–76; PULSE 63–87; RESP 12–20; TEMP 97.6–98; O2SAT 97–100
[2017-05-24] MEDS: CLINDAMYCIN 600 MG/NS PREMIX 50 ML IV SCH ×2 (04:00→09:48)
[2017-05-24] MEDS: CHLORHEXIDINE GLUCONATE 2 % 1 PACK (2 CLOTHS) TOP SCH (04:00)
[2017-05-24 04:32] LABS: HEMATOCRIT 28.6 % (39.0-51.0); HEMOGLOBIN 9.3 GM/DL (13.0-17.0); MEAN CELL VOLUME 98.4 FL (80.0-100.0); MEAN CORPUSCULAR HEMOGLOBIN 32.1 PG (27.0-34.0); MEAN CORPUSCULAR HGB CONC 32.6 % (32.0-36.0); MEAN PLATELET VOLUME 8.2 FL (7.0-11.0); PLATELET COUNT 194 TH/MM3 (150-450)
[2017-05-24 04:45] LABS: INTERNATIONAL NORMALIZED RATIO 1.4 RATIO
[2017-05-24 05:09] LABS: BICARBONATE 29.6 MEQ/L (21.0-32.0); CALCIUM 8.3 MG/DL (8.5-10.1); CREATININE 1.66 MG/DL (0.60-1.30)
--- NOTE | 2017-05-24 05:33 | RADRPT ---
EXAM DATE/TIME: 05/24/2017 04:32 [place] COMPARISON: CT BRAIN W/O CONTRAST, May 22, 2017, 10:16. INDICATIONS : Follow up subdural hematoma. RADIATION DOSE: 56.35 CTDIvol (mGy) MEDICAL HISTORY : Hypertension. Congestive heart failure. SURGICAL HISTORY : CABG Carotid endarterectomy. ENCOUNTER: Subsequent ACUITY: 1 day PAIN SCALE: Non-responsive LOCATION: cranial TECHNIQUE: Multiple contiguous axial images were obtained of the head. Using automated exposure control and adj ustment of the mA and/or kV according to patient size, radiation dose was kept as low as reasonably a chievable to obtain optimal diagnostic quality images. DICOM format image data is available electro nically for review and comparison. FINDINGS: A left subdural drain is now present. The left convexity subdural hematoma is smaller in the interim, now measures approximately 9 mm in maximal thickness. Expected pneumocephaly is present. There is ap proximate 5 mm of rightward midline shift, decreased. No new or acute blood. No mass or evidence of an acute ischemic event. CONCLUSION: Interim drainage with decreased size of the left subdural hematoma and decreased midline shift. Abimael Nunez MD on May 24, 2017 at 5:30 Board Certified Radiologist. This report was verified electronically.
[2017-05-24] MEDS: LOSARTAN 50 MG TAB PO SCH (08:44)
[2017-05-24] MEDS: levETIRAcetam INJ 500 MG in SODIUM CHLORIDE 0.9% INJ 100 ML IV SCH ×2 (08:44→21:00)
[2017-05-24] MEDS: SODIUM CHLORIDE 0.9% FLUSH 10 ML FLUSH IV FLUSH SCH ×2 (08:44→21:48)
[2017-05-24] MEDS: METOPROLOL TARTRATE 100 MG TAB PO SCH ×2 (08:44→21:47)
[2017-05-24] MEDS: FUROSEMIDE 40 MG TAB PO SCH (08:44)
[2017-05-24] MEDS: ATORVASTATIN 20 MG TAB PO SCH (08:44)
[2017-05-24] MEDS: DOCUSATE SODIUM 50 MG/SENNA 8.6 MG TAB PO SCH ×2 (08:44→21:47)
--- NOTE | 2017-05-24 09:41 | HHI.CCPN ---
Subjective Remarks/Hospital Course 81 y/o right-handed man has developed worsening lethargy and absent-mindedness over past week or more. Family states his memory has deteriorated and he is lethargic. CT Head reveals large left hygroma with considerable mass effect and midline shift. He is on chronic coumadin for a-fib and INR 2.1 in ED. Received Kcentra and FFP for reversal. History obtained from 3 family members at the bedside. Patient is verbal but speech is slow with pauses. 05/23: No change in neurological function. Patient has received 3 separate reversal products for coagulopathy and is ready for the OR. 05/24: Right arm strength good. Speech clear, pauses finding words. Clearly much improved from preop. Objective Vital Signs Date Time Temp Pulse Resp B/P (MAP) Pulse Ox O2 Delivery O2 Flow Rate FiO2 05/24/17 04:00 98.0 82 12 142/59 (86) 100 05/23/17 20:22 Nasal Cannula 3.00 Intake and Output 05/24/17 05/24/17 05/25/17 08:00 16:00 00:00 Intake Total 470 ml Output Total 290 ml Balance 180 ml Result Diagram: 05/24/17 0410 05/24/17 0410 Other Results Microbiology Date/Time Source Procedure Growth Status 05/22/17 10:35 Urine Clean Catch Urine Culture - Final <10,000 CFU/ML MIXED GRAM POSITIVE FL... Complete Objective Remarks Gen: Conversant, slow speech. Head: Normal. Neck: Supple, airway widely patent. Lungs: Clear, no wheezes or crackles. Protects airway well. Heart: Irreg Irreg, No JVD. Rate 70s Abdomen: Soft, nontender, no guarding. Extremities: Bilateral postphlebitic legs with diffuse edema and brawny induration. Well perfused. Neuro: Right handed.Speech slow but clear. Much more alert today. Moves 4 limbs to command. A/P Assessment and Plan Assessment: 1. Large left subdural hygroma. 2. Coagulopathy - Warfarin 3. Permanent atrial fibrillation. 4. Postphlebitic legs with diffuse edema. 5. Altered mental status. Plan: 1. Complete reversal of coumadin. 2. Confirm correction of INR. 3. No antiplatelet drugs for now. 4. NPO. 5. HOB up 30 degrees. 6. Continue diuretics. 7. Neurosurgical evaluation. Overall impression: Considerable mass effect from large left hygroma, now evacuated. Much improved mentation and speech. Anson Velazquez MD May 24, 2017 09:41
[2017-05-24] MEDS ORDERED: MAGNESIUM SULFATE 1 GM PREMIX 100 ML IV ONE (09:45)
[2017-05-24] MEDS ORDERED: FUROSEMIDE 100 MG/10 ML VIAL IV PUSH ONE (09:45)
[2017-05-24] MEDS: POTASSIUM CHLOR 20 MEQ PREMIX 100 ML IV SCH ×2 (11:27→13:29)
--- NOTE | 2017-05-24 12:22 | HHI.NSPN ---
(Waldo Snowden) History Interval History 05/22: An 81-year-old gentleman who was brought into [facility] emergency room with progressive decline in his neurologic status. For the past at least a month or so he has complained of headaches on the right side the head and the neck and also in levels of alertness and confusion along with generalized weakness, particularly the right side. He was using a walker to ambulate up until about two weeks ago when even getting him a wheelchair was difficult as his legs would give out on him. He has a poor appetite and in the last several weeks has not eaten much at all. He has a history of renal failure and makes urine but not much, according to the and, at one point, was on dialysis but he is off it now. He is on Coumadin ever since his heart coronary bypass surgery in 2011 for atrial fibrillation and also has a history of congestive heart failure. A CT scan of the head obtained reveals a large left hemisphere multi-loculated subdural hemorrhage, subacute and chronic with three areas of loculations and septations, small areas of acute hemorrhage. There is about 12 mm of [id number] midline shift and the subdural hemorrhage measures 19 mm in maximal thickness with effacement of the left lateral ventricle from the compression. CT of the cervical spine reveals multilevel degenerative changes with some mild disk protrusions but no fractures noted. 05/23: The patient was taken to the operating room and underwent a left craniotomy for evacuation of the subdural haematoma. Post-operatively the patient returned to [facility] for further care and monitoring. 05/24: This morning when seen the patient is doing well and readily interacts. He is unable to say whether he has a headache or not. He does deny any dizziness or nausea. He readily jokes and smiles as he is being evaluated. He is moving all extremities spontaneously. (Waldo Snowden) Exam Results 05/22/17 05/22/17 05/23/17 05/23/17 05/24/17 05/24/17 06:00 18:00 06:00 18:00 06:00 18:00 Intake Total 423 ml 100 ml 1980 ml 675 ml 255 ml Output Total 880 ml 290 ml Balance 423 ml 100 ml 1100 ml 385 ml 255 ml Intake Oral 480 ml 320 ml IV Total 100 ml 100 ml 1500 ml 355 ml 255 ml FFP 293 ml Blood Product IV Normal Saline Flush 30 ml Output Urine Total 770 ml 275 ml Drainage Total 85 ml 15 ml Estimated Blood Loss 25 ml # Bowel Movements 0 Vital Signs Date Time Temp Pulse Resp B/P (MAP) Pulse Ox O2 Delivery O2 Flow Rate FiO2 05/24/17 10:00 87 05/24/17 09:45 98 Nasal Cannula 2.00 05/24/17 08:00 97.8 80 20 140/54 (82) 100 05/24/17 08:00 83 05/24/17 07:00 100 Nasal Cannula 1.00 05/24/17 04:00 98.0 82 12 142/59 (86) 100 05/24/17 00:00 97.8 76 12 119/42 (67) 100 05/23/17 23:00 83 05/23/17 21:00 65 13 121/48 (72) 99 05/23/17 20:22 96 Nasal Cannula 3.00 05/23/17 20:00 100 Nasal Cannula 2.00 05/23/17 20:00 97.4 66 13 100 142/67 (92) 05/23/17 18:00 60 05/23/17 16:00 98.0 70 28 139/75 (96) 96 133/60 (84) 05/23/17 16:00 70 05/23/17 14:00 68 05/23/17 12:00 84 05/23/17 12:00 97.4 84 12 149/62 (91) 100 151/60 (90) 05/23/17 12:00 100 05/23/17 11:45 97.2 94 18 128/65 (86) 96 Nasal Cannula 4 134/53 (80) 05/23/17 11:30 107 18 127/58 (81) 96 Nasal Cannula 4 117/48 (71) 05/23/17 11:15 103 18 136/62 (86) 96 Nasal Cannula 4 120/53 (75) 05/23/17 11:00 107 18 177/82 (113) 94 Nasal Cannula 4 177/86 (116) 05/23/17 10:45 125 18 162/76 (104) 100 Nasal Cannula 4 185/102 (129) 05/23/17 10:37 96.4 118 18 135/66 (89) 92 Nasal Cannula 4 181/99 (126) 05/23/17 08:00 60 05/23/17 08:00 100 05/23/17 08:00 98 Nasal Cannula 2 05/23/17 08:00 97.9 64 18 174/80 (111) 98 05/23/17 06:00 98.7 68 17 147/99 (115) 100 05/23/17 05:00 98.6 74 17 170/85 (113) 100 05/23/17 04:00 98.7 68 19 105/66 (79) 100 05/23/17 03:00 98.6 61 12 167/94 (118) 100 05/23/17 02:00 98.7 66 15 167/80 (109) 100 05/23/17 01:00 98.8 59 18 158/72 (100) 100 05/23/17 00:00 98.7 61 13 136/72 (93) 100 05/22/17 23:00 98.8 57 12 138/62 (87) 100 05/22/17 23:00 57 05/22/17 22:00 98.7 72 18 135/83 (100) 100 05/22/17 21:00 98.7 72 18 135/83 (100) 100 05/22/17 20:00 98.7 72 11 144/67 (92) 100 05/22/17 19:00 100 Nasal Cannula 2.00 05/22/17 19:00 100 Room Air 2.00 05/22/17 18:00 64 05/22/17 16:00 97.8 70 25 142/69 (93) 100 05/22/17 16:00 70 05/22/17 14:00 80 05/22/17 13:00 76 05/22/17 13:00 100 05/22/17 13:00 98.3 76 17 199/94 (129) 100 05/22/17 12:21 78 17 157/85 (109) 93 Room Air 05/22/17 12: 98.3 78 17 178/97 (124) 96 05/22/17 11:20 77 18 174/98 (123) 96 Nasal Cannula 2.00 05/22/17 10:39 72 18 165/82 (109) 93 Room Air 05/22/17 10:30 66 17 165/83 (110) 97 Nasal Cannula 05/22/17 08:52 98.3 78 16 151/76 (101) 94 (Waldo Snowden) Physical Examination GENERAL: Awake & alert, readily interacts, affect essentially normal, no distress apparent. HEENT: Normocephalic, left side craniotomy incision w/intact dressing w/o any shadowing noted, JEB drain to bulb suction w/serosanguinous drainage, no erythema or streaking noted. PERRLA 3 mm brisk, EOMI. MMM & pink, tongue midline to protrusion. RESPIRATORY: CTAB w/o W/R/R, equal excursion, nonlaboured, on NC. CARDIOVASCULAR: S1S2 w/irregularly irregular rate w/o M/G/R, monitor appears to be atrial fibrillation w/controlled ventricular rate. GASTROINTESTINAL: Abdomen rotund, soft, nontender, positive bowel sounds. GENITOURINARY: Rice catheter in place w/clear orange-coloured urine. MUSCULOSKELETAL: ARIAS w/o difficulty, no evident clubbing or deformity. NEUROLOGICAL: AAOx3. Speech clear & appropriate. Follows simple commands w/o difficulty. CN II-XII appear grossly intact. Sensation intact to light touch to all extremities. Motor strength is 5/5 to all major flexion & extension muscle groups. (Waldo Snowden) Lab, Micro, Other Results This practitioner independently reviewed the CT brain images completed this morning and compared with those from . There is a decrease in the size of the left-sided subdural haematoma with a decrease in the midline shift as well. There is pneumocephalus noted post-operatively as well as a subdural drain on the left. Recent Impressions Head CT 05/24/17 0600 Signed Impressions: Service Date/Time: Wednesday, May 24, 2017 04:32 - CONCLUSION: Interim drainage with decreased size of the left subdural hematoma and decreased midline shift. Abimael Nunez MD Knee X-Ray 05/22/17 0905 Signed Impressions: Service Date/Time: April 09:52 - CONCLUSION: 1. Advanced tricompartmental degenerative osteoarthritis, most prominently in the medial compartment with essentially [id number] articulation. 2. No acute fracture or dislocation. Evangelista Holder MD Head CT 05/22/17904 Signed Impressions: Service Date/Time: April 10:16 - CONCLUSION: 1. Interval development of a large left subdural hygroma with chronic, subacute and acute components. Collection measures upwards of 2 cm in depth and results in a 1.2 cm left to right subfalcine shift. 2. 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 3. Results were called to Dr. Rodriguez in the ED at the time of this dictation. Sandro Andrews MD Chest X-Ray 05/22/17904 Signed Impressions: Service Date/Time: , May 22, 2017 09:52 - CONCLUSION: 1. Mild left lung base airspace disease, likely atelectasis. 2. Compensated cardiomegaly. Evangelista Holder MD Cervical Spine CT 05/22/17904 Signed Impressions: Service Date/Time: April 10:16 - CONCLUSION: 1. No acute bony fracture. 2. Diffuse primary bony degenerative changes throughout the cervical spine 3. Bilateral facet arthritis at multiple levels. 4. Focal central bulging at C4-5 and C6-7. Drew Jha MD Laboratory Tests Test 05/22/17 05:35 05/22/17 09:10 05/22/17 10:35 05/22/17 20:23 Nasal Screen MRSA (PCR) MRSA NOT DETECTED White Blood Count 6.6 TH/MM3 Red Blood Count 3.01 MIL/MM3 Hemoglobin 9.6 GM/DL Hematocrit 29.9 % Mean Corpuscular Volume 99.4 FL Mean Corpuscular Hemoglobin 31.9 PG Mean Corpuscular Hemoglobin Concent 32.1 % Red Cell Distribution Width 14.5 % Platelet Count 212 TH/MM3 Mean Platelet Volume 8.2 FL Neutrophils (%) (Auto) 78.0 % Lymphocytes (%) (Auto) 10.1 % Monocytes (%) (Auto) 7.9 % Eosinophils (%) (Auto) 1.4 % Basophils (%) (Auto) 2.6 % Neutrophils # (Auto) 5.1 TH/MM3 Lymphocytes # (Auto) 0.7 TH/MM3 Monocytes # (Auto) 0.5 TH/MM3 Eosinophils # (Auto) 0.1 TH/MM3 Basophils # (Auto) 0.2 TH/MM3 CBC Comment DIFF FINAL Differential Comment Prothrombin Time 21.7 SEC 15.8 SEC Prothromb Time International Ratio 2.1 RATIO 1.6 RATIO Activated Partial Thromboplast Time 31.6 SEC Blood Urea Nitrogen 14 MG/DL Creatinine 1.70 MG/DL Random Glucose 130 MG/DL Total Protein 7.8 GM/DL Albumin 2.8 GM/DL Calcium Level 8.7 MG/DL Magnesium Level 1.7 MG/DL Alkaline Phosphatase 110 U/L Aspartate Amino Transf (AST/SGOT) 16 U/L Alanine Aminotransferase (ALT/SGPT) 9 U/L Total Bilirubin 2.9 MG/DL Sodium Level 138 MEQ/L Potassium Level 3.7 MEQ/L Chloride Level 97 MEQ/L Carbon Dioxide Level 32.0 MEQ/L Anion Gap 9 MEQ/L Estimat Glomerular Filtration Rate 47 ML/MIN B-Type Natriuretic Peptide 962 PG/ML Urine Color DARK YELLOW Urine Turbidity CLEAR Urine pH 6.0 Urine Specific [place] 1.021 Urine Protein TRACE mg/dL Urine Glucose (UA) NEG mg/dL Urine Ketones TRACE mg/dL Urine Occult Blood NEG Urine Nitrite NEG Urine Bilirubin SMALL Urine Leukocyte Esterase TRACE Urine RBC 0-3 /hpf Urine WBC 9-14 /hpf Urine WBC Clumps FEW Urine Squamous Epithelial Cells 0-5 /hpf Urine Transitional Epithelial Cells 0-5 /hpf Urine Calcium Oxalate Crystals FEW /hpf Urine Bacteria FEW /hpf Urine Hyaline Casts 3-5 /lpf Urine Mucus FEW /lpf Microscopic Urinalysis Comment CULTURE INDICATED Test 05/23/17 04:13 05/24/17 04:10 White Blood Count 5.9 TH/MM3 9.0 TH/MM3 Red Blood Count 3.08 MIL/MM3 2.90 MIL/MM3 Hemoglobin 9.9 GM/DL 9.3 GM/DL Hematocrit 30.5 % 28.6 % Mean Corpuscular Volume 98.9 FL 98.4 FL Mean Corpuscular Hemoglobin 32.2 PG 32.1 PG Mean Corpuscular Hemoglobin Concent 32.5 % 32.6 % Red Cell Distribution Width 15.0 % 15.0 % Platelet Count 199 TH/MM3 194 TH/MM3 Mean Platelet Volume 8.2 FL 8.2 FL Prothrombin Time 15.0 SEC 14.0 SEC Prothromb Time International Ratio 1.5 RATIO 1.4 RATIO Activated Partial Thromboplast Time 29.4 SEC 29.6 SEC Blood Urea Nitrogen 14 MG/DL 15 MG/DL Creatinine 1.64 MG/DL 1.66 MG/DL Random Glucose 101 MG/DL 98 MG/DL Calcium Level 8.9 MG/DL 8.3 MG/DL Sodium Level 139 MEQ/L 138 MEQ/L Potassium Level 3.7 MEQ/L 3.6 MEQ/L Chloride Level 98 MEQ/L 100 MEQ/L Carbon Dioxide Level 31.9 MEQ/L 29.6 MEQ/L Anion Gap 9 MEQ/L 8 MEQ/L Estimat Glomerular Filtration Rate 49 ML/MIN 49 ML/MIN (Waldo Snowden) Medical Decision Making Impression and Plan Impression: 1. Large left frontotemporal parietal multi-loculated subacute on chronic subdural hemorrhage with significant mass effect and midline shift. 2. Atrial fibrillation on chronic Coumadin therapy. 3. History of renal failure. 4. Congestive heart failure, history of coronary artery bypass grafting. The patient is doing well post-operatively and remains neurologically intact. He is in atrial fibrillation w/a controlled ventricular rate. Reviewed labs for today. Slight drop in haemoglobin. Decreased renal function that is stable. INR 1.4. Urine culture <10,000 CFU/mL but mixed gram positive jarrod that are probable contaminants. CT brain this morning demonstrates improvement in the size of the left SDH with a decreased midline shift. JEB drains with 15 mL (left head) and 85 mL (left lateral head) output this morning. Plan: Primary management per Route Sales Representative. Neuro checks. Stat CT brain for any decline in neuro status. Monitor JEB drain output. Mechanical DVT prophylaxis. Hold pharmacologic DVT prophylaxis. (Waldo Snowden) Attending Statement The exam, history, and the medical decision-making described in the above note were completed with the assistance of the mid-level provider. I reviewed and agree with the findings presented. I attest that I had a [id number] encounter with the patient on the same day, and personally performed and documented my assessment and findings in the medical record. On my examination 05/24/2017 Patient remains awake and alert without significant focal deficit. Mild drain output Follow-up CT scan head 05/24/2017 with some further diminution in size of residual subdural hematoma without significant mass effect. Plan discontinue drain 05/25/17 if output diminishes. Otherwise neurologically stable Discussed with family in room today (El Medley MD) Waldo Snowden May 24, 2017 12:22 El Medley MD May 29, 2017 19:41
--- NOTE | 2017-05-24 12:26 | HHI.NSPN ---
History Chief Complaint: mild headache Interval History 81-year-old male underwent a left craniotomy evacuation of chronic subdural hematoma of . 05/24/17: Mild headache. No nausea vomiting. No blurred vision or diplopia. Patient's states that less confusion today. No difficulty with sleep reported. System Review Comments Mild UMANZOR No nausea Persisent poor appetite Exam Results Vital Signs Date Time Temp Pulse Resp B/P (MAP) Pulse Ox O2 Delivery O2 Flow Rate FiO2 05/24/17 10:00 87 05/24/17 09:45 98 Nasal Cannula 2.00 05/24/17 08:00 97.8 20 140/54 (82) Intake and Output 05/24/17 05/24/17 05/25/17 08:00 16:00 00:00 Intake Total 470 ml 255 ml Output Total 290 ml Balance 180 ml 255 ml Physical Examination Gen.: Well-developed gentleman in no apparent distress Respiratory: Clear to auscultation Cardiac: Regular without murmur Abdomen: Soft nontender. Positive bowel sounds Extremities: Mild distal lower extremity edema without cyanosis Head: Subdural drain present. Mild output. Moderate blood and CSF Neurologic: Awake and alert Speech clear and appropriate Follows simple commands well Extraocular movements and visual plummer intact Facial sensorimotor intact Sensation intact all extremities light touch Strength normal major flexion and extension groups all extremities Lab, Micro, Other Results 09/22/2016 CT scan head images reviewed by the undersigned. There is significant improvement in the overall size of the left hemisphere subdural hematoma. Mild to moderate left frontal pneumocephalus. Minimal midline shift. Head CT 05/24/17 0600 Signed Impressions: Service Date/Time: Wednesday, May 24, 2017 04:32 - CONCLUSION: Interim drainage with decreased size of the left subdural hematoma and decreased midline shift. Abimael Nunez MD Laboratory Tests Test 05/24/17 04:10 White Blood Count 9.0 TH/MM3 Red Blood Count 2.90 MIL/MM3 Hemoglobin 9.3 GM/DL Hematocrit 28.6 % Mean Corpuscular Volume 98.4 FL Mean Corpuscular Hemoglobin 32.1 PG Mean Corpuscular Hemoglobin Concent 32.6 % Red Cell Distribution Width 15.0 % Platelet Count 194 TH/MM3 Mean Platelet Volume 8.2 FL Prothrombin Time 14.0 SEC Prothromb Time International Ratio 1.4 RATIO Activated Partial Thromboplast Time 29.6 SEC Blood Urea Nitrogen 15 MG/DL Creatinine 1.66 MG/DL Random Glucose 98 MG/DL Calcium Level 8.3 MG/DL Sodium Level 138 MEQ/L Potassium Level 3.6 MEQ/L Chloride Level 100 MEQ/L Carbon Dioxide Level 29.6 MEQ/L Anion Gap 8 MEQ/L Estimat Glomerular Filtration Rate 49 ML/MIN Medical Decision Making Impression and Plan Impression: 1. Doing well following left craniotomy evacuation chronic subdural hematoma. CT scan 05/24/2017 improved 2. Hypertension. Adequately control her present medications Plan: Discussed with patient and his in the room today Continuing close intensive care neurologic checks Anticipate discontinuation of drain on 05/25/17 Continue present antihypertensive medications Out of bed in chair with therapy Non-chemical DVT prophylaxis Seizure prophylaxis-El Zelaya MD May 24, 2017 12:26
[2017-05-24] MEDS: oxyCODONE/ACETAMINOPHEN 7.5 MG/325 MG TAB PO PRN (23:26)
[2017-05-25] VITALS (15 sets, daily range): BP systolic 105–158; BP diastolic 54–87; PULSE 62–87; RESP 13–22; TEMP 97.5–98.5; O2SAT 94–100
[2017-05-25] MEDS: CHLORHEXIDINE GLUCONATE 2 % 1 PACK (2 CLOTHS) TOP SCH (03:44)
[2017-05-25 06:22] LABS: HEMATOCRIT 30.7 % (39.0-51.0); HEMOGLOBIN 9.9 GM/DL (13.0-17.0); MEAN CELL VOLUME 100.2 FL (80.0-100.0); MEAN CORPUSCULAR HEMOGLOBIN 32.3 PG (27.0-34.0); MEAN CORPUSCULAR HGB CONC 32.3 % (32.0-36.0); MEAN PLATELET VOLUME 8.6 FL (7.0-11.0); PLATELET COUNT 202 TH/MM3 (150-450); RED BLOOD COUNT 3.07 MIL/MM3 (4.50-5.90); RED CELL DISTRIBUTION WIDTH 15.3 % (11.6-17.2); WHITE BLOOD COUNT 8.7 TH/MM3 (4.0-11.0)
[2017-05-25 06:33] LABS: INTERNATIONAL NORMALIZED RATIO 1.4 RATIO; PROTHROMBIN TIME - PATIENT 14.5 SEC (9.8-11.6)
[2017-05-25 06:38] LABS: BICARBONATE 30.4 MEQ/L (21.0-32.0); CALCIUM 8.6 MG/DL (8.5-10.1); CREATININE 1.77 MG/DL (0.60-1.30)
--- NOTE | 2017-05-25 09:11 | HHI.CCPN ---
Subjective Remarks/Hospital Course 81 y/o right-handed man has developed worsening lethargy and absent-mindedness over past week or more. Family states his memory has deteriorated and he is lethargic. CT Head reveals large left hygroma with considerable mass effect and midline shift. He is on chronic coumadin for a-fib and INR 2.1 in ED. Received Kcentra and FFP for reversal. History obtained from 3 family members at the bedside. Patient is verbal but speech is slow with pauses. 05/23: No change in neurological function. Patient has received 3 separate reversal products for coagulopathy and is ready for the OR. 05/24: Right arm strength good. Speech clear, pauses finding words. Clearly much improved from preop. 05/25: Improved mentation and speech speed. Only major issue is low urine output and full neck veins. Will add Zaroxolyn to iv lasix today, follow RFTs. Objective Vital Signs Date Time Temp Pulse Resp B/P (MAP) Pulse Ox O2 Delivery O2 Flow Rate FiO2 05/25/17 06:00 97 Nasal Cannula 1.00 05/25/17 06:00 87 05/25/17 04:00 97.6 21 132/80 (97) Intake and Output 05/25/17 05/25/17 05/26/17 08:00 16:00 00:00 Intake Total 390 ml Output Total 160 ml Balance 230 ml Result Diagram: 05/25/17 0559 05/25/17 0559 Other Results Microbiology Date/Time Source Procedure Growth Status 05/22/17 10:35 Urine Clean Catch Urine Culture - Final <10,000 CFU/ML MIXED GRAM POSITIVE FL... Complete Objective Remarks Gen: Conversant, occasional difficulty finding words. Head: Normal. Neck: Supple, airway widely patent. Lungs: Clear, no wheezes or crackles. Protects airway well. Heart: Irreg Irreg, No JVD. Rate 70s Abdomen: Soft, nontender, no guarding. BS active. Extremities: Bilateral postphlebitic legs with diffuse edema and brawny induration. Well perfused. Neuro: Right handed. Speech slow but clear. Much more alert today. Moves 4 limbs to command. Forgetful and repeats himself. A/P Assessment and Plan Assessment: 1. Large left subdural hygroma. 2. Coagulopathy - Warfarin 3. Permanent atrial fibrillation. 4. Postphlebitic legs with diffuse edema. 5. Altered mental status. Plan: 1. Complete reversal of coumadin. 2. Confirm correction of INR. 3. No antiplatelet drugs for now. 4. NPO -> swallo evaluation. 5. HOB up 30 degrees. 6. Increase diuretics. diuretics. 7. Neurosurgical evaluation. 8. Cardiac echo - suspect PA hypertension and probable TR. Overall impression: Considerable mass effect from large left hygroma, now evacuated 05/23. Much improved mentation and speech. Check cardiac ECHO - suspect longstanding TR from hypoventilation and PA HTN. Anson Velazquez MD May 25, 2017 09:11
[2017-05-25] MEDS ORDERED: METOLAZONE 5 MG TAB PO ONE (09:15)
[2017-05-25] MEDS ORDERED: FUROSEMIDE 100 MG/10 ML VIAL IV PUSH ONE (09:15)
[2017-05-25] MEDS: LOSARTAN 50 MG TAB PO SCH (10:39)
[2017-05-25] MEDS: METOPROLOL TARTRATE 100 MG TAB PO SCH ×2 (10:39→19:21)
[2017-05-25] MEDS: levETIRAcetam INJ 500 MG in SODIUM CHLORIDE 0.9% INJ 100 ML IV SCH ×2 (10:39→19:21)
[2017-05-25] MEDS: SODIUM CHLORIDE 0.9% FLUSH 10 ML FLUSH IV FLUSH SCH ×2 (10:40→19:22)
[2017-05-25] MEDS: FUROSEMIDE 40 MG TAB PO SCH (10:40)
[2017-05-25] MEDS: ATORVASTATIN 20 MG TAB PO SCH (10:40)
[2017-05-25] MEDS: DOCUSATE SODIUM 50 MG/SENNA 8.6 MG TAB PO SCH ×2 (10:40→19:21)
--- NOTE | 2017-05-25 11:05 | HHI.NSPN ---
(Waldo Snowden) History Chief Complaint: Surgical incision sore (Waldo Snowden) Interval History 05/22: An 81-year-old gentleman who was brought into [facility] emergency room with progressive decline in his neurologic status. For the past at least a month or so he has complained of headaches on the right side the head and the neck and also in levels of alertness and confusion along with generalized weakness, particularly the right side. He was using a walker to ambulate up until about two weeks ago when even getting him a wheelchair was difficult as his legs would give out on him. He has a poor appetite and in the last several weeks has not eaten much at all. He has a history of renal failure and makes urine but not much, according to the and, at one point, was on dialysis but he is off it now. He is on Coumadin ever since his heart coronary bypass surgery in 2011 for atrial fibrillation and also has a history of congestive heart failure. A CT scan of the head obtained reveals a large left hemisphere multi-loculated subdural hemorrhage, subacute and chronic with three areas of loculations and septations, small areas of acute hemorrhage. There is about 12 mm of [id number] midline shift and the subdural hemorrhage measures 19 mm in maximal thickness with effacement of the left lateral ventricle from the compression. CT of the cervical spine reveals multilevel degenerative changes with some mild disk protrusions but no fractures noted. 05/23: The patient was taken to the operating room and underwent a left craniotomy for evacuation of the subdural haematoma. Post-operatively the patient returned to [facility] for further care and monitoring. 05/24: This morning when seen the patient is doing well and readily interacts. He is unable to say whether he has a headache or not. He does deny any dizziness or nausea. He readily jokes and smiles as he is being evaluated. He is moving all extremities spontaneously. 05/25: When seen this morning the patient is asleep but opens his eyes to voice. After that he is awake and readily interacts. He has some tenderness to the surgical incision but no headache, dizziness or nausea. He spontaneously moves all extremities. (Waldo Snowden) Exam Results 05/23/17 05/23/17 05/24/17 05/24/17 05/25/17 05/25/17 06:00 18:00 06:00 18:00 06:00 18:00 Intake Total 100 ml 1980 ml 675 ml 695 ml 105 ml 390 ml Output Total 880 ml 290 ml 235 ml 160 ml Balance 100 ml 1100 ml 385 ml 460 ml 105 ml 230 ml Intake Oral 480 ml 320 ml 240 ml 240 ml IV Total 100 ml 1500 ml 355 ml 455 ml 105 ml 150 ml Output Urine Total 770 ml 275 ml 225 ml 150 ml Drainage Total 85 ml 15 ml 10 ml 10 ml Estimated Blood Loss 25 ml # Bowel Movements 0 0 0 Vital Signs Date Time Temp Pulse Resp B/P (MAP) Pulse Ox O2 Delivery O2 Flow Rate FiO2 05/25/17 09:12 100 Nasal Cannula 2.00 05/25/17 06:00 97 Nasal Cannula 1.00 05/25/17 06:00 87 05/25/17 04:00 71 05/25/17 04:00 97.6 71 21 132/80 (97) 98 05/25/17 02:00 84 05/25/17 00:00 70 05/25/17 00:00 97.9 70 13 129/63 (85) 100 05/24/17 22:00 63 05/24/17 20:10 97 Nasal Cannula 3.00 05/24/17 20:00 74 05/24/17 20:00 100 Nasal Cannula 2.00 05/24/17 20:00 97.6 74 18 141/76 (97) 100 05/24/17 18:00 74 05/24/17 16:00 97.9 76 14 124/67 (86) 100 Arterial Line 05/24/17 16:00 76 05/24/17 14:00 68 05/24/17 12:00 97.7 64 12 124/52 (76) 100 05/24/17 12:00 64 05/24/17 10:00 87 05/24/17 09:45 98 Nasal Cannula 2.00 05/24/17 08:00 97.8 80 20 140/54 (82) 100 05/24/17 08:00 83 05/24/17 07:00 100 Nasal Cannula 1.00 05/24/17 04:00 98.0 82 12 142/59 (86) 100 05/24/17 00:00 97.8 76 12 119/42 (67) 100 05/23/17 23:00 83 05/23/17 21:00 65 13 121/48 (72) 99 05/23/17 20:22 96 Nasal Cannula 3.00 05/23/17 20:00 100 Nasal Cannula 2.00 05/23/17 20:00 97.4 66 13 100 142/67 (92) 05/23/17 18:00 60 05/23/17 16:00 98.0 70 28 139/75 (96) 96 133/60 (84) 05/23/17 16:00 70 05/23/17 14:00 68 05/23/17 12:00 84 05/23/17 12:00 97.4 84 12 149/62 (91) 100 151/60 (90) 05/23/17 12:00 100 05/23/17 11:45 97.2 94 18 128/65 (86) 96 Nasal Cannula 4 134/53 (80) 05/23/17 11:30 107 18 127/58 (81) 96 Nasal Cannula 4 117/48 (71) 05/23/17 11:15 103 18 136/62 (86) 96 Nasal Cannula 4 120/53 (75) 05/23/17 11:00 107 18 177/82 (113) 94 Nasal Cannula 4 177/86 (116) 05/23/17 10:45 125 18 162/76 (104) 100 Nasal Cannula 4 185/102 (129) 05/23/17 10:37 96.4 118 18 135/66 (89) 92 Nasal Cannula 4 181/99 (126) 05/23/17 08:00 60 05/23/17 08:00 100 05/23/17 08:00 98 Nasal Cannula 2 05/23/17 08:00 97.9 64 18 174/80 (111) 98 05/23/17 06:00 98.7 68 17 147/99 (115) 100 05/23/17 05:00 98.6 74 17 170/85 (113) 100 05/23/17 04:00 98.7 68 19 105/66 (79) 100 05/23/17 03:00 98.6 61 12 167/94 (118) 100 05/23/17 02:00 98.7 66 15 167/80 (109) 100 05/23/17 01:00 98.8 59 18 158/72 (100) 100 05/23/17 00:00 98.7 61 13 136/72 (93) 100 05/22/17 23:00 98.8 57 12 138/62 (87) 100 05/22/17 23:00 57 05/22/17 22:00 98.7 72 18 135/83 (100) 100 05/22/17 21:00 98.7 72 18 135/83 (100) 100 05/22/17 20:00 98.7 72 11 144/67 (92) 100 05/22/17 19:00 100 Nasal Cannula 2.00 05/22/17 19:00 100 Room Air 2.00 05/22/17 18:00 64 05/22/17 16:00 97.8 70 25 142/69 (93) 100 05/22/17 16:00 70 05/22/17 14:00 80 05/22/17 13:00 76 05/22/17 13:00 100 05/22/17 13:00 98.3 76 17 199/94 (129) 100 05/22/17 12:21 78 17 157/85 (109) 93 Room Air 05/22/17 12:17 98.3 78 17 178/97 (124) 96 05/22/17 11:20 77 18 174/98 (123) 96 Nasal Cannula 2.00 (Waldo Snowden) Physical Examination GENERAL: Asleep but awakens to voice, after that he is awake & readily interacts , affect essentially normal, no distress apparent. HEENT: Normocephalic, left side craniotomy incision mildly TTP w/intact dressing w/o any shadowing noted, JEB drain to bulb suction w/serosanguinous drainage, no erythema or streaking noted. PERRLA 3 mm brisk, EOMI. MMM & pink, tongue midline to protrusion. MUSCULOSKELETAL: ARIAS w/o difficulty, no evident clubbing or deformity. NEUROLOGICAL: AAOx3. Speech clear & appropriate. Follows simple commands w/o difficulty. CN II-XII appear grossly intact. Sensation intact to light touch to all extremities. Motor strength is 5/5 to all major flexion & extension muscle groups. (Waldo Snowden) Lab, Micro, Other Results Recent Impressions Head CT 05/24/17 0600 Signed Impressions: Service Date/Time: Wednesday, May 24, 2017 04:32 - CONCLUSION: Interim drainage with decreased size of the left subdural hematoma and decreased midline shift. Abimael Nunez MD Laboratory Tests Test 05/22/17 20:23 05/23/17 04:13 05/24/17 04:10 05/25/17 05:59 Prothrombin Time 15.8 SEC 15.0 SEC 14.0 SEC 14.5 SEC Prothromb Time International Ratio 1.6 RATIO 1.5 RATIO 1.4 RATIO 1.4 RATIO White Blood Count 5.9 TH/MM3 9.0 TH/MM3 8.7 TH/MM3 Red Blood Count 3.08 MIL/MM3 2.90 MIL/MM3 3.07 MIL/MM3 Hemoglobin 9.9 GM/DL 9.3 GM/DL 9.9 GM/DL Hematocrit 30.5 % 28.6 % 30.7 % Mean Corpuscular Volume 98.9 FL 98.4 FL 100.2 FL Mean Corpuscular Hemoglobin 32.2 PG 32.1 PG 32.3 PG Mean Corpuscular Hemoglobin Concent 32.5 % 32.6 % 32.3 % Red Cell Distribution Width 15.0 % 15.0 % 15.3 % Platelet Count 199 TH/MM3 194 TH/MM3 202 TH/MM3 Mean Platelet Volume 8.2 FL 8.2 FL 8.6 FL Activated Partial Thromboplast Time 29.4 SEC 29.6 SEC 31.0 SEC Blood Urea Nitrogen 14 MG/DL 15 MG/DL 17 MG/DL Creatinine 1.64 MG/DL 1.66 MG/DL 1.77 MG/DL Random Glucose 101 MG/DL 98 MG/DL 91 MG/DL Calcium Level 8.9 MG/DL 8.3 MG/DL 8.6 MG/DL Sodium Level 139 MEQ/L 138 MEQ/L 136 MEQ/L Potassium Level 3.7 MEQ/L 3.6 MEQ/L 3.8 MEQ/L Chloride Level 98 MEQ/L 100 MEQ/L 98 MEQ/L Carbon Dioxide Level 31.9 MEQ/L 29.6 MEQ/L 30.4 MEQ/L Anion Gap 9 MEQ/L 8 MEQ/L 8 MEQ/L Estimat Glomerular Filtration Rate 49 ML/MIN 49 ML/MIN 45 ML/MIN (Waldo Snowden) Medical Decision Making Impression and Plan Impression: 1. Large left frontotemporal parietal multi-loculated subacute on chronic subdural hemorrhage with significant mass effect and midline shift. 2. Atrial fibrillation on chronic Coumadin therapy. 3. History of renal failure. 4. Congestive heart failure, history of coronary artery bypass grafting. The patient continues to do well post-operatively and remains neurologically intact. He is in atrial fibrillation w/a controlled ventricular rate. Reviewed labs for today. Interval improvement in haemoglobin. Decrease in renal function. INR 1.4. Urine culture <10,000 CFU/mL but mixed gram positive jarrod that are probable contaminants, final report. CT this morning demonstrates improvement in the size of the left SDH with a decreased midline shift. JEB drain with 20 mL output this morning for the past 24 hours. Plan: Primary management per [employer]. Neuro checks. Stat CT brain for any decline in neuro status. Monitor JEB drain output. Mechanical DVT prophylaxis. Hold pharmacologic DVT prophylaxis. Will d/c JEB drain. (Waldo Snowden) Attending Statement The exam, history, and the medical decision-making described in the above note were completed with the assistance of the mid-level provider. I reviewed and agree with the findings presented. I attest that I had a [id number] encounter with the patient on the same day, and personally performed and documented my assessment and findings in the medical record. On my examination: 24/06/2016, the patient remained awake alert oriented. Slow but clear speech. Moving all extremities with good strength. Minimal drain output I discontinued the drain on 06/25/2016 and Steri-Strips placed. Plan follow-up CT scan head Discussed with family in room on 05/25/2017 (El Medley MD) Waldo Snowden May 25, 2017 11:05 El Medley MD May 29, 2017 19:42
[2017-05-25] MEDS ORDERED: LIDOCAINE 2%/EPINEPHrine 1:100,000 20ML MDV INFIL ONE (12:00)
[2017-05-25] MEDS: MEGESTROL ACETATE SUSP 400 MG/10 ML CUP PO SCH (18:40)
[2017-05-25] MEDS: oxyCODONE/ACETAMINOPHEN 7.5 MG/325 MG TAB PO PRN (21:11)
[2017-05-26] VITALS (13 sets, daily range): BP systolic 116–149; BP diastolic 59–81; PULSE 60–88; RESP 10–23; TEMP 97.8–98.1; O2SAT 94–100
[2017-05-26] MEDS: CHLORHEXIDINE GLUCONATE 2 % 1 PACK (2 CLOTHS) TOP SCH (04:00)
[2017-05-26 05:15] LABS: INTERNATIONAL NORMALIZED RATIO 1.4 RATIO; PROTHROMBIN TIME - PATIENT 14.2 SEC (9.8-11.6)
[2017-05-26 05:22] LABS: BICARBONATE 31.4 MEQ/L (21.0-32.0); CALCIUM 8.9 MG/DL (8.5-10.1); CREATININE 1.96 MG/DL (0.60-1.30)
[2017-05-26] MEDS: DOCUSATE SODIUM 50 MG/SENNA 8.6 MG TAB PO SCH ×2 (10:38→22:07)
[2017-05-26] MEDS: FUROSEMIDE 40 MG TAB PO SCH (10:38)
[2017-05-26] MEDS: LOSARTAN 50 MG TAB PO SCH (10:39)
[2017-05-26] MEDS: SODIUM CHLORIDE 0.9% FLUSH 10 ML FLUSH IV FLUSH SCH ×2 (10:39→22:07)
[2017-05-26] MEDS: METOPROLOL TARTRATE 100 MG TAB PO SCH ×2 (10:39→22:07)
[2017-05-26] MEDS: levETIRAcetam INJ 500 MG in SODIUM CHLORIDE 0.9% INJ 100 ML IV SCH ×2 (10:39→22:07)
[2017-05-26] MEDS: ATORVASTATIN 20 MG TAB PO SCH (10:39)
[2017-05-26] MEDS: MEGESTROL ACETATE SUSP 400 MG/10 ML CUP PO SCH (10:39)
--- NOTE | 2017-05-26 11:04 | HHI.NSPN ---
(Caroline Ullao) Note Status Status: Progress Note (Caroline Ulloa) Interval History Interval History 05/22: An 81-year-old gentleman who was brought into [facility] emergency room with progressive decline in his neurologic status. For the past at least a month or so he has complained of headaches on the right side the head and the neck and also in levels of alertness and confusion along with generalized weakness, particularly the right side. He was using a walker to ambulate up until about two weeks ago when even getting him a wheelchair was difficult as his legs would give out on him. He has a poor appetite and in the last several weeks has not eaten much at all. He has a history of renal failure and makes urine but not much, according to the and, at one point, was on dialysis but he is off it now. He is on Coumadin ever since his heart coronary bypass surgery in 2011 for atrial fibrillation and also has a history of congestive heart failure. A CT scan of the head obtained reveals a large left hemisphere multi-loculated subdural hemorrhage, subacute and chronic with three areas of loculations and septations, small areas of acute hemorrhage. There is about 12 mm of [id number] midline shift and the subdural hemorrhage measures 19 mm in maximal thickness with effacement of the left lateral ventricle from the compression. CT of the cervical spine reveals multilevel degenerative changes with some mild disk protrusions but no fractures noted. 05/23: The patient was taken to the operating room and underwent a left craniotomy for evacuation of the subdural haematoma. Post-operatively the patient returned to [facility] for further care and monitoring. 05/24: This morning when seen the patient is doing well and readily interacts. He is unable to say whether he has a headache or not. He does deny any dizziness or nausea. He readily jokes and smiles as he is being evaluated. He is moving all extremities spontaneously. 05/25: When seen this morning the patient is asleep but opens his eyes to voice. After that he is awake and readily interacts. He has some tenderness to the surgical incision but no headache, dizziness or nausea. He spontaneously moves all extremities. 05/26/17: alert, mild surgical pain. otherwise doing well. no changes to neuro checks overnight. (Caroline Ulloa) Labs, Micro, & Vital Signs Results Date Time Temp Pulse Resp B/P (MAP) Pulse Ox O2 Delivery O2 Flow Rate FiO2 05/26/17 06:00 83 05/26/17 04:00 98.1 66 20 116/59 (78) 100 05/26/17 04:00 66 05/26/17 02:00 67 05/26/17 00:00 97.9 67 20 145/75 (98) 99 05/26/17 00:00 67 05/25/17 22:47 100 Nasal Cannula 1.00 05/25/17 22:00 70 05/25/17 20:00 100 Nasal Cannula 1.00 05/25/17 20:00 98.5 69 22 105/54 (71) 97 05/25/17 20:00 62 05/25/17 19:36 94 21 05/25/17 18:00 69 05/25/17 16:00 98.5 64 18 126/62 (83) 100 05/25/17 16:00 68 05/25/17 14:00 73 05/25/17 12:00 97.5 72 17 141/73 (95) 100 05/25/17 12:00 72 Constitutional Vital Signs Date Time Temp Pulse Resp B/P (MAP) Pulse Ox O2 Delivery O2 Flow Rate FiO2 05/26/17 06:00 83 05/26/17 04:00 98.1 66 20 116/59 (78) 100 05/26/17 04:00 66 05/26/17 02:00 67 05/26/17 00:00 97.9 67 20 145/75 (98) 99 05/26/17 00:00 67 05/25/17 22:47 100 Nasal Cannula 1.00 05/25/17 22:00 70 05/25/17 20:00 100 Nasal Cannula 1.00 05/25/17 20:00 98.5 69 22 105/54 (71) 97 05/25/17 20:00 62 05/25/17 19:36 94 21 05/25/17 18:00 69 05/25/17 16:00 98.5 64 18 126/62 (83) 100 05/25/17 16:00 68 05/25/17 14:00 73 05/25/17 12:00 97.5 72 17 141/73 (95) 100 05/25/17 12:00 72 (Caroline Ulloa) Physical Exam Awake, following commands. Morbidly obese Incision healing well. Motor: moves all four extremities against gravity. CN: pupils equal, facial motor symmetric (Caroline Ulloa) Medications Current Medications Current Medications Medications (Trade) Dose Ordered Sig/Deni Route PRN Reason Start Time Stop Time Status Last Admin Dose Admin Potassium Chloride 100 ml @ 50 mls/hr Q2H PRN IV For Potassium 2.8 - 3.2 mEq/L 05/22/17 11:15 Potassium Chloride 100 ml @ 50 mls/hr Q2H PRN IV For Potassium 2.8 - 3.2 mEq/L 05/22/17 11:15 Potassium Bicarb/ Potassium Chloride (K-Lyte Cl Eff) 50 meq UNSCH PRN PO For Potassium 3.3 - 3.5 mEq/L 05/22/17 11:15 Potassium Chloride 100 ml @ 25 mls/hr UNSCH PRN IV For Potassium 3.3 - 3.5 mEq/L 05/22/17 11:15 Potassium Chloride 100 ml @ 50 mls/hr Q2H PRN IV For Potassium 3.3 - 3.5 mEq/L 05/22/17 11:15 Magnesium Sulfate 4 gm/Sodium Chloride 100 ml @ 50 mls/hr UNSCH PRN IV For Magnesium 0.9 - 1.1 mg/dL 05/22/17 11:15 Magnesium Oxide (Mag-Ox) 800 mg UNSCH PRN PO For Magnesium 1.2 - 1.6 mg/dL 05/22/17 11:15 Magnesium Sulfate 2 gm/Sodium Chloride 100 ml @ 50 mls/hr UNSCH PRN IV For Magnesium 1.2 - 1.6 mg/dL 05/22/17 11:15 Potassium Phosphate (K-Phos) 2,000 mg Q4H PRN PO For Phosphorus < 2.5 mg/dL 05/22/17 11:15 Sodium Phosphate 30 mmol/Sodium Chloride 250 ml @ 42 mls/hr UNSCH PRN IV For Phosphorus < 2.5 mg/dL 05/22/17 11:15 Potassium Phosphate (K-Phos) 2,000 mg UNSCH PRN PO/TUBE SEE LABEL COMMENTS 05/22/17 11:15 Potassium Phosphate 30 mmol/ Sodium Chloride 260 ml @ 42 mls/hr UNSCH PRN IV SEE LABEL COMMENTS 05/22/17 11:15 Labetalol HCl (Trandate Inj) 20 mg Q15M PRN IV PUSH sbp > 140 05/22/17 11:15 Hydralazine HCl (Apresoline Inj) 10 mg Q30M PRN IV PUSH sbp > 140 05/22/17 11:15 05/23/17 20:43 Ondansetron HCl (Zofran Inj) 4 mg Q6H PRN IV PUSH NAUSEA OR VOMITING 05/22/17 11:15 Albuterol/ Ipratropium (Duoneb Neb) 1 ampule Q2HR NEB PRN INH WHEEZING 05/22/17 11:15 Miscellaneous Information 1 Q361D XX 05/22/17 11:15 Chlorhexidine Gluconate (Chlorhexidine 2% Cloth) 3 pack Taper DAILY@04 TOP 05/23/17 04:00 05/19/18 03:59 Chlorhexidine Gluconate (Chlorhexidine 2% Cloth) 3 pack UNSCH PRN TOP HYGIENIC CARE 05/22/17 11:15 Senna/Docusate Sodium (Yamileth-Colace) 1 tab BID PO 05/22/17 21:00 05/26/17 10:38 Acetaminophen (Tylenol) 650 mg Q4H PRN PO SEE LABEL COMMENTS 05/22/17 12:45 Diphenhydramine HCl (Benadryl) 25 mg Q4H PRN PO SEE LABEL COMMENTS 05/22/17 12:45 Metoprolol Tartrate (Lopressor) 100 mg Q12HR PO 05/22/17 21:00 05/26/17 10:39 Atorvastatin Calcium (Lipitor) 20 mg DAILY PO 05/23/17 09:00 05/26/17 10:39 Losartan Potassium (Cozaar) 50 mg DAILY PO 05/23/17 09:00 05/26/17 10:39 Furosemide (Lasix) 40 mg DAILY PO 05/23/17 09:00 05/26/17 10:38 Sodium Chloride (NS Flush) 2 ml UNSCH PRN IV FLUSH FLUSH AFTER USING IV ACCESS 05/23/17 10:15 Sodium Chloride (NS Flush) 2 ml BID IV FLUSH 05/23/17 21:00 05/26/17 10:39 Levetriacetam 500 mg/Sodium Chloride 105 ml @ 400 mls/hr Q12H IV 05/23/17 21:00 05/28/17 10:14 05/26/17 10:39 Lorazepam (Ativan Inj) 1 mg Q1H PRN IV PUSH SEIZURES 05/23/17 10:15 Al Hydrox/Mg Hydrox/Simethicone (Mag-Al Plus Susp Liq) 30 ml Q6H PRN PO DYSPEPSIA 05/23/17 10:15 Morphine Sulfate (Morphine Inj) 2 mg Q2H PRN IV BREAKTHROUGH PAIN >6 05/23/17 11:15 05/25/17 11:42 Labetalol HCl (Trandate Inj) 10 mg Q1H PRN IV PUSH SYS BP GREATER THAN 170 MMHG 05/23/17 10:15 Clonidine (Catapres) 0.1 mg Q6H PRN PO SYS BP GREATER THAN 170 MMHG 05/23/17 10:15 Magnesium Hydroxide (Milk Of Magnesia Liq) 30 ml Q12H PRN PO Mild constipation 05/23/17 10:15 Sennosides (Senokot) 17.2 mg Q12H PRN PO Moderate constipation 05/23/17 10:15 Bisacodyl (Dulcolax Supp) 10 mg DAILY PRN RECTAL SEVERE CONSITIPATION 05/23/17 10:15 Lactulose (Lactulose Liq) 30 ml DAILY PRN PO SEVERE CONSITIPATION 05/23/17 10:15 Oxycodone/ Acetaminophen (Percocet 7.5-325 Mg) 1 tab Q4H PRN PO PAIN 1-10 05/24/17 21:45 05/25/17 21:11 Megestrol Acetate (Megace Liq) 400 mg DAILY PO 05/25/17 17:00 05/26/17 10:39 (Caroline Ulloa) Medical Decision Making MDM Remarks 1. Large left frontotemporal parietal multi-loculated subacute on chronic subdural hemorrhage with significant mass effect and midline shift s/p left craniotomy for evacuation of SDH 2. Atrial fibrillation on chronic Coumadin therapy 3. History of renal failure. 4. Congestive heart failure, history of coronary artery bypass grafting. The patient continues to do well post-operatively and remains neurologically intact (Caroline Ulloa) Plan Plan Remarks cont critical care mgt neuro checks cont therapy and mobilize OOB with assistance rehab efforts (Caroline Ulloa) Attending Statement The exam, history, and the medical decision-making described in the above note were completed with the assistance of the mid-level provider. I reviewed and agree with the findings presented. I attest that I had a [id number] encounter with the patient on the same day, and personally performed and documented my assessment and findings in the medical record. (Tim Joseph MD) Caroline Ulloa May 26, 2017 11:04 Tim Joseph MD May 26, 2017 12:10
[2017-05-26] MEDS ORDERED: POTASSIUM CHLORIDE 20 MEQ CONTROLLED RELEASE TAB PO ONE (13:15)
--- NOTE | 2017-05-26 14:44 | HHI.CCPN ---
Subjective Remarks/Hospital Course 81 y/o right-handed man has developed worsening lethargy and absent-mindedness over past week or more. Family states his memory has deteriorated and he is lethargic. CT Head reveals large left hygroma with considerable mass effect and midline shift. He is on chronic coumadin for a-fib and INR 2.1 in ED. Received Kcentra and FFP for reversal. History obtained from 3 family members at the bedside. Patient is verbal but speech is slow with pauses. 05/23: No change in neurological function. Patient has received 3 separate reversal products for coagulopathy and is ready for the OR. 05/24: Right arm strength good. Speech clear, pauses finding words. Clearly much improved from preop. 05/25: Improved mentation and speech speed. Only major issue is low urine output and full neck veins. Will add Zaroxolyn to iv lasix today, follow RFTs. 05/26/17: Creat has increased from 1.8 to 2. Na 134. Hold Lasix and hydrate with normal saline 50 ML per hour for 24 hours. Keep Na >140 Objective Vital Signs Date Time Temp Pulse Resp B/P (MAP) Pulse Ox O2 Delivery O2 Flow Rate FiO2 05/26/17 12:00 97.8 88 21 145/78 (100) 94 05/26/17 07:00 Nasal Cannula 1.00 05/25/17 19:36 21 Intake and Output 05/26/17 05/26/17 05/27/17 08:00 16:00 00:00 Intake Total 240 ml 380 ml Output Total 180 ml Balance 60 ml 380 ml Result Diagram: 05/25/17 0559 05/26/17 0434 Objective Remarks Gen: Conversant, occasional difficulty finding words. Head: Normal. Neck: Supple, airway widely patent. Lungs: Clear, no wheezes or crackles. Protects airway well. Heart: Irreg Irreg, No JVD. Rate 70s Abdomen: Soft, nontender, no guarding. BS active. Extremities: Bilateral postphlebitic legs with diffuse edema and brawny induration. Well perfused. Neuro: Right handed. Speech slow but clear. Alert awake. Moves 4 limbs to command. Forgetful and repeats himself. A/P Assessment and Plan Assessment: 1. Large left subdural hygroma. 2. Coagulopathy - Warfarin induced 3. Permanent atrial fibrillation. 4. Postphlebitic legs with diffuse edema. 5. Altered mental status. Plan: 1. s/p reversal of coumadin. 2. underwent left craniotomy for evacuation of the subdural haematoma 05/23/17 3. No antiplatelet drugs for now. 4. Diet per speech recommendation 5. HOB up 30 degrees. 6. With increased diuretics, creat increasing. Hold Lasix, NS 50 ml per hour for 24 hours 7. Neurosurgery, Dr. Joseph 8. Cardiac echo - suspect PA hypertension and probable TR. Overall impression: Considerable mass effect from large left hygroma, now evacuated 05/23. Much improved mentation and speech. 2D ECHO pending - suspect longstanding TR from hypoventilation and PA HTN. Daily PT/OT Robin Varghese MD May 26, 2017 14:44
[2017-05-26] MEDS: SODIUM CHLOR 0.9% 1000 ML INJ 1,000 ML IV SCH (14:52)
[2017-05-26] MEDS: oxyCODONE/ACETAMINOPHEN 7.5 MG/325 MG TAB PO PRN (22:07)
[2017-05-27] VITALS (13 sets, daily range): BP systolic 111–152; BP diastolic 56–73; PULSE 64–100; RESP 14–20; TEMP 98.1–98.8; O2SAT 93–100
[2017-05-27] MEDS: oxyCODONE/ACETAMINOPHEN 7.5 MG/325 MG TAB PO PRN (00:42)
[2017-05-27] MEDS: CHLORHEXIDINE GLUCONATE 2 % 1 PACK (2 CLOTHS) TOP SCH (03:56)
[2017-05-27 05:31] LABS: ALBUMIN 2.2 GM/DL (3.4-5.0); AST (GOT) 16 U/L (15-37); BICARBONATE 32.4 MEQ/L (21.0-32.0); CALCIUM 8.5 MG/DL (8.5-10.1); CHLORIDE 97 MEQ/L (98-107); GLOMERULAR FILTRATION RATE 39 ML/MIN (>89); GLUCOSE,RANDOM 91 MG/DL (74-106); SODIUM (NA) 136 MEQ/L (136-145)
[2017-05-27 05:34] LABS: ALKALINE PHOSPHATASE 86 U/L (45-117); ALT (GPT) LESS THAN 6 U/L (12-78); BLOOD UREA NITROGEN 20 MG/DL (7-18); TOTAL BILIRUBIN ADULT 2.2 MG/DL (0.2-1.0); TOTAL PROTEIN 6.4 GM/DL (6.4-8.2)
[2017-05-27 06:57] LABS: HEMATOCRIT 29.1 % (39.0-51.0); MEAN CELL VOLUME 97.1 FL (80.0-100.0); MEAN CORPUSCULAR HEMOGLOBIN 33.3 PG (27.0-34.0); MEAN CORPUSCULAR HGB CONC 34.3 % (32.0-36.0); MEAN PLATELET VOLUME 9.6 FL (7.0-11.0); PLATELET COUNT 214 TH/MM3 (150-450); RED CELL DISTRIBUTION WIDTH 14.6 % (11.6-17.2)
[2017-05-27 07:39] LABS: BANDS 1 % (0-6); BASOPHILS 1 % (0-2); LYMPHOCYTES 11 % (9-44); MONOCYTES 8 % (0-8); NEUTROPHIL # MANUAL DIFF 8.7 TH/MM3 (1.8-7.7); POLYS (SEG NEUTROPHILS) 78 % (16-70)
[2017-05-27 07:40] LABS: ACANTHOCYTES OCC (NORMAL); OVALOCYTES 1+ (NORMAL)
[2017-05-27] MEDS: levETIRAcetam INJ 500 MG in SODIUM CHLORIDE 0.9% INJ 100 ML IV SCH ×2 (09:06→22:53)
[2017-05-27] MEDS: ATORVASTATIN 20 MG TAB PO SCH (09:06)
[2017-05-27] MEDS: MEGESTROL ACETATE SUSP 400 MG/10 ML CUP PO SCH (09:06)
[2017-05-27] MEDS: LOSARTAN 50 MG TAB PO SCH (09:06)
[2017-05-27] MEDS: METOPROLOL TARTRATE 100 MG TAB PO SCH ×2 (09:06→22:54)
[2017-05-27] MEDS: DOCUSATE SODIUM 50 MG/SENNA 8.6 MG TAB PO SCH ×2 (09:06→22:53)
[2017-05-27] MEDS: SODIUM CHLORIDE 0.9% FLUSH 10 ML FLUSH IV FLUSH SCH ×2 (09:07→21:00)
--- NOTE | 2017-05-27 11:34 | HHI.NSPN ---
(Waldo Snowden Katlyn BAIRES) History Chief Complaint: Surgical incision sore and slightly numb (Waldo SnowdenAmol BAIRES) Interval History 05/22: An 81-year-old gentleman who was brought into [facility] emergency room with progressive decline in his neurologic status. For the past at least a month or so he has complained of headaches on the right side the head and the neck and also in levels of alertness and confusion along with generalized weakness, particularly the right side. He was using a walker to ambulate up until about two weeks ago when even getting him a wheelchair was difficult as his legs would give out on him. He has a poor appetite and in the last several weeks has not eaten much at all. He has a history of renal failure and makes urine but not much, according to the and, at one point, was on dialysis but he is off it now. He is on Coumadin ever since his heart coronary bypass surgery in 2011 for atrial fibrillation and also has a history of congestive heart failure. A CT scan of the head obtained reveals a large left hemisphere multi-loculated subdural hemorrhage, subacute and chronic with three areas of loculations and septations, small areas of acute hemorrhage. There is about 12 mm of [id number] midline shift and the subdural hemorrhage measures 19 mm in maximal thickness with effacement of the left lateral ventricle from the compression. CT of the cervical spine reveals multilevel degenerative changes with some mild disk protrusions but no fractures noted. 05/23: The patient was taken to the operating room and underwent a left craniotomy for evacuation of the subdural haematoma. Post-operatively the patient returned to [facility] for further care and monitoring. 05/24: This morning when seen the patient is doing well and readily interacts. He is unable to say whether he has a headache or not. He does deny any dizziness or nausea. He readily jokes and smiles as he is being evaluated. He is moving all extremities spontaneously. 05/25: When seen this morning the patient is asleep but opens his eyes to voice. After that he is awake and readily interacts. He has some tenderness to the surgical incision but no headache, dizziness or nausea. He spontaneously moves all extremities. 05/26/17: alert, mild surgical pain. otherwise doing well. no changes to neuro checks overnight. 05/27: The patient is awake and alert visiting with friends this morning when seen. He denies any headache, dizziness or nausea but does have slight soreness to the surgical incision which also feels slightly numb. He moves all extremities spontaneously without any difficulty. (Waldo Snowden) Exam Results 05/25/17 05/25/17 05/26/17 05/26/17 05/27/17 05/27/17 06:00 18:00 06:00 18:00 06:00 18:00 Intake Total 105 ml 1018 ml 240 ml 785 ml 815 ml Output Total 695 ml 880 ml 1875 ml Balance 105 ml 323 ml 240 ml -95 ml -1060 ml Intake Oral 770 ml 240 ml 500 ml IV Total 105 ml 248 ml 285 ml 815 ml Output Urine Total 675 ml 880 ml 1875 ml Drainage Total 20 ml # Voids 4 4 7 # Bowel Movements 0 0 0 0 Vital Signs Date Time Temp Pulse Resp B/P (MAP) Pulse Ox O2 Delivery O2 Flow Rate FiO2 05/27/17 10:00 89 05/27/17 08:12 100 Nasal Cannula 1.00 05/27/17 08:00 88 05/27/17 07:00 99 Nasal Cannula 1.00 21 05/27/17 06:00 68 05/27/17 04:00 98.6 65 17 128/59 (82) 98 05/27/17 04:00 65 05/27/17 02:00 64 05/27/17 00:00 98.8 71 14 114/63 (80) 100 05/27/17 00:00 71 05/26/17 22:00 62 05/26/17 20:00 72 05/26/17 20:00 98.0 72 17 143/70 (94) 96 05/26/17 19:53 100 Nasal Cannula 1.00 05/26/17 19:00 97 Nasal Cannula 1.00 05/26/17 18:00 60 05/26/17 16:00 98.0 73 23 149/81 (103) 98 05/26/17 16:00 73 05/26/17 14:00 75 05/26/17 12:00 97.8 88 21 145/78 (100) 94 05/26/17 12:00 88 05/26/17 10:00 70 05/26/17 08:00 72 05/26/17 08:00 97.8 72 10 138/71 (93) 98 05/26/17 07:00 98 Nasal Cannula 1.00 05/26/17 06:00 83 05/26/17 04:00 98.1 66 20 116/59 (78) 100 05/26/17 04:00 66 05/26/17 02:00 67 05/26/17 00:00 97.9 67 20 145/75 (98) 99 05/26/17 00:00 67 05/25/17 22:47 100 Nasal Cannula 1.00 05/25/17 22:00 70 05/25/17 20:00 100 Nasal Cannula 1.00 05/25/17 20:00 98.5 69 22 105/54 (71) 97 05/25/17 20:00 62 05/25/17 19:36 94 21 05/25/17 18:00 69 05/25/17 16:00 98.5 64 18 126/62 (83) 100 05/25/17 16:00 68 05/25/17 14:00 73 05/25/17 12:00 97.5 72 17 141/73 (95) 100 05/25/17 12:00 72 05/25/17 10:00 69 05/25/17 09:12 100 Nasal Cannula 2.00 05/25/17 08:00 72 05/25/17 08:00 97.7 72 18 158/87 (110) 100 05/25/17 07:00 100 Nasal Cannula 1.00 05/25/17 06:00 97 Nasal Cannula 1.00 05/25/17 06:00 87 05/25/17 04:00 71 05/25/17 04:00 97.6 71 21 132/80 (97) 98 05/25/17 02:00 84 05/25/17 00:00 70 05/25/17 00:00 97.9 70 13 129/63 (85) 100 05/24/17 22:00 63 05/24/17 20:10 97 Nasal Cannula 3.00 05/24/17 20:00 74 05/24/17 20:00 100 Nasal Cannula 2.00 05/24/17 20:00 97.6 74 18 141/76 (97) 100 05/24/17 18:00 74 05/24/17 16:00 97.9 76 14 124/67 (86) 100 Arterial Line 05/24/17 16:00 76 05/24/17 14:00 68 05/24/17 12:00 97.7 64 12 124/52 (76) 100 05/24/17 12:00 64 (Waldo Snowden) Physical Examination GENERAL: Awake & alert, visiting w/friends, readily interacts, affect normal, no distress apparent. HEENT: Normocephalic, left side craniotomy incision minimally TTP w/decreased sensation, anthony intact & JEB drain insertion site both w/o any drainage, erythema or streaking noted. PERRLA 3 mm brisk, EOMI. MMM & pink, tongue midline to protrusion. MUSCULOSKELETAL: ARIAS w/o difficulty, no evident clubbing or deformity. NEUROLOGICAL: AAOx3. Speech clear & appropriate. Follows simple commands w/o difficulty. CN II-XII appear grossly intact. Sensation intact to light touch to all extremities. Motor strength is 5/5 to all major flexion & extension muscle groups. (Waldo Snowden) Lab, Micro, Other Results Laboratory Tests Test 05/25/17 05:59 05/26/17 04:34 05/27/17 04:50 White Blood Count 8.7 TH/MM3 11.0 TH/MM3 Red Blood Count 3.07 MIL/MM3 3.00 MIL/MM3 Hemoglobin 9.9 GM/DL 10.0 GM/DL Hematocrit 30.7 % 29.1 % Mean Corpuscular Volume 100.2 FL 97.1 FL Mean Corpuscular Hemoglobin 32.3 PG 33.3 PG Mean Corpuscular Hemoglobin Concent 32.3 % 34.3 % Red Cell Distribution Width 15.3 % 14.6 % Platelet Count 202 TH/MM3 214 TH/MM3 Mean Platelet Volume 8.6 FL 9.6 FL Prothrombin Time 14.5 SEC 14.2 SEC Prothromb Time International Ratio 1.4 RATIO 1.4 RATIO Activated Partial Thromboplast Time 31.0 SEC 31.5 SEC Blood Urea Nitrogen 17 MG/DL 18 MG/DL 20 MG/DL Creatinine 1.77 MG/DL 1.96 MG/DL 2.00 MG/DL Random Glucose 91 MG/DL 108 MG/DL 91 MG/DL Calcium Level 8.6 MG/DL 8.9 MG/DL 8.5 MG/DL Sodium Level 136 MEQ/L 135 MEQ/L 136 MEQ/L Potassium Level 3.8 MEQ/L 3.4 MEQ/L 3.6 MEQ/L Chloride Level 98 MEQ/L 94 MEQ/L 97 MEQ/L Carbon Dioxide Level 30.4 MEQ/L 31.4 MEQ/L 32.4 MEQ/L Anion Gap 8 MEQ/L 10 MEQ/L 7 MEQ/L Estimat Glomerular Filtration Rate 45 ML/MIN 40 ML/MIN 39 ML/MIN CBC Comment AUTO DIFF Differential Total Cells Counted 100 Neutrophils % (Manual) 78 % Band Neutrophils % 1 % Lymphocytes % 11 % Monocytes % 8 % Eosinophils % 1 % Basophils % 1 % Neutrophils # (Manual) 8.7 TH/MM3 Differential Comment FINAL DIFF MANUAL Platelet Estimate NORMAL Platelet Morphology Comment NORMAL Ovalocytes 1+ Acanthocytes OCC Hematology Comments Total Protein 6.4 GM/DL Albumin 2.2 GM/DL Alkaline Phosphatase 86 U/L Aspartate Amino Transf (AST/SGOT) 16 U/L Alanine Aminotransferase (ALT/SGPT) LESS THAN 6 U/L Total Bilirubin 2.2 MG/DL (Waldo Snowden) Medical Decision Making Impression and Plan Impression: 1. Large left frontotemporal parietal multi-loculated subacute on chronic subdural hemorrhage with significant mass effect and midline shift. 2. Atrial fibrillation on chronic Coumadin therapy. 3. History of renal failure. 4. Congestive heart failure, history of coronary artery bypass grafting. The patient is doing well post-operatively and remains neurologically intact. He is in atrial fibrillation w/a controlled ventricular rate. Reviewed labs for today. Stable haemoglobin. Essentially stable renal function. CT brain demonstrates improvement in the size of the left SDH with a decreased midline shift. Physical & Occupational Therapy recommends further therapy inpatient. Plan: Primary management per Peer Tutor/Hospitalist. Neuro checks. Stat CT brain for any decline in neuro status. Mechanical DVT prophylaxis. Hold pharmacologic DVT prophylaxis. Patient may transfer to a regular med/surg floor from NSGY's perspective. (Waldo Snowden) Attending Statement The exam, history, and the medical decision-making described in the above note were completed with the assistance of the mid-level provider. I reviewed and agree with the findings presented. I attest that I had a [id number] encounter with the patient on the same day, and personally performed and documented my assessment and findings in the medical record. On my examination 05/27/2017, the patient awake and alert and oriented conversant appropriate Speech improving Sitting up in bed Tolerating diet little better Overall improving steadily 's follow-up CT scan today with stable mild residual subdural hematoma without significant mass effect Dressing dry and intact Drain site dry Improving Stable for discharge to rehabilitation from neurosurgery standpoint (El Medley MD) Waldo Snowden May 27, 2017 11:34 El Medley MD May 29, 2017 19:43
--- NOTE | 2017-05-27 11:42 | ECHRPT ---
Indication: heart failure CONCLUSIONS The left ventricular systolic function is normal with an estimated ejection fraction in the range of 60-65%. Normal left ventricular size. Mild concentric left ventricular hypertrophy. Regional wall motion abnormalities cannot be excluded. Trace mitral valve regurgitation. Mild mitral annular calcification. Mild aortic leaflet calcification. There is trace tricuspid valve regurgitation. The estimated pulmonary arterial pressure is 36 mmHg. Difficult to exclude a bicuspid aortic valve. Mild to moderate aortic sclerosis. BP: 128 / 59 HR: 65 Rhythm: Atrial fibrillation MEASUREMENTS (Male / Female) Normal Values Technical Quality:Technically difficult study 2D ECHO LV Diastolic Diameter PLAX 3.9 cm 4.2 - 5.9 / 3.9 - 5.3 cm LV Systolic Diameter PLAX 2.6 cm IVS Diastolic Thickness 1.9 cm 0.6 - 1.0 / 0.6 - 0.9 cm LVPW Diastolic Thickness 1.8 cm 0.6 - 1.0 / 0.6 - 0.9 cm LV Relative Wall Thickness 1.0 RV Internal Dim ED PLAX 3.6 cm LVOT Diameter 1.8 cm M-MODE Aortic Root Diameter MM 3.0 cm LA Systolic Diameter MM 4.8 cm LA Ao Ratio MM 1.6 AV Cusp Separation MM 0.9 cm DOPPLER AV Peak Velocity 126.0 cm/s AV Peak Gradient 6.4 mmHg LVOT Peak Velocity 131.0 cm/s LVOT Peak Gradient 6.9 mmHg AV Area Cont Eq pk 2.6 cm MV Area PHT 3.1 cm Mitral E Point Velocity 120.0 cm/s Mitral A Point Velocity 37.0 cm/s Mitral E to A Ratio 3.2 TR Peak Velocity 258.0 cm/s TR Peak Gradient 26.6 mmHg Right Atrial Pressure 10.0 mmHg Pulmonary Artery Systolic Pressu 36.6 mmHg Right Ventricular Systolic Press 36.6 mmHg PV Peak Velocity 95.0 cm/s PV Peak Gradient 3.6 mmHg FINDINGS LEFT VENTRICLE The left ventricular systolic function is normal with an estimated ejection fraction in the range of 60-65%. Normal left ventricular size. Mild concentric left ventricular hypertrophy. Regional wall motiona abnormalities cannot be exclud ed. RIGHT VENTRICLE Normal right ventricular size and systolic function. LEFT ATRIUM The left atrial size is normal. RIGHT ATRIUM The right atrial size is normal. ATRIAL SEPTUM Normal atrial septal thickness without atrial level shunting by limited color doppler interrogation. AORTA The aortic root and proximal ascending aorta are normal in size on limited imaging. MITRAL VALVE Trace mitral valve regurgitation. Mild mitral annular calcification. AORTIC VALVE Difficult to exclude a bicuspid aortic valve. Mild to moderate aortic sclerosis. TRICUSPID VALVE Structurally normal tricuspid valve. There is trace tricuspid valve regurgitation. The estimated pulmonary arterial pressure is 36 mmHg. PULMONARY VALVE No pulmonary valve regurgitation or stenosis. VESSELS The inferior vena cava is normal in size. PERICARDIUM No pericardial effusion. Parveen Rodriguez MD (Electronically Signed) Final Date:27 May 2017 11:41 Amended: 27 May 2017 15:38
[2017-05-27] MEDS: SODIUM CHLOR 0.9% 1000 ML INJ 1,000 ML IV SCH (13:12)
--- NOTE | 2017-05-27 16:44 | HHI.CCPN ---
Subjective Remarks/Hospital Course 81 y/o right-handed man has developed worsening lethargy and absent-mindedness over past week or more. Family states his memory has deteriorated and he is lethargic. CT Head reveals large left hygroma with considerable mass effect and midline shift. He is on chronic coumadin for a-fib and INR 2.1 in ED. Received Kcentra and FFP for reversal. History obtained from 3 family members at the bedside. Patient is verbal but speech is slow with pauses. 05/23: No change in neurological function. Patient has received 3 separate reversal products for coagulopathy and is ready for the OR. 05/24: Right arm strength good. Speech clear, pauses finding words. Clearly much improved from preop. 05/25: Improved mentation and speech speed. Only major issue is low urine output and full neck veins. Will add Zaroxolyn to iv lasix today, follow RFTs. 05/26/17: Creat has increased from 1.8 to 2. Na 134. Hold Lasix and hydrate with normal saline 50 ML per hour for 24 hours. Keep Na >140 05/27/17: Patient is oriented 3 today. Creat remains stable. UO adequate. complains about poor appetite-ensure added. Repeat CT head requested Objective Vital Signs Date Time Temp Pulse Resp B/P (MAP) Pulse Ox O2 Delivery O2 Flow Rate FiO2 05/27/17 16:00 88 05/27/17 12:00 98.6 16 125/58 (80) 97 05/27/17 08:12 Nasal Cannula 1.00 05/27/17 07:00 21 Intake and Output 05/27/17 05/27/17 05/27/17 07:59 15:59 23:59 Intake Total 710 ml Output Total 1875 ml Balance -1165 ml Result Diagram: 05/27/17 0450 05/27/17 0450 Objective Remarks Gen: Conversant, Alert oriented x3 today Head: Normal. Neck: Supple, airway widely patent. Lungs: Clear, no wheezes or crackles. Protects airway well. Heart: Irreg Irreg, No JVD. Rate 70s Abdomen: Soft, nontender, no guarding. BS active. Extremities: Bilateral postphlebitic legs with diffuse edema and brawny induration. Well perfused. Neuro: Right handed. Speech slow but clear. Alert awake Ox3. Moves 4 limbs to command. Forgetful at times and repeats himself. A/P Assessment and Plan Assessment: 1. Large left subdural hygroma with midline shift 2. Coagulopathy - Warfarin induced 3. Permanent atrial fibrillation. 4. Postphlebitic legs with diffuse edema. 5. Altered mental status. Plan: 1. s/p reversal of Coumadin. 2. underwent left craniotomy for evacuation of the subdural hematoma 05/23/17. Repeat CT head today 3. No antiplatelet drugs for now. 4. Diet per speech recommendation 5. HOB up 30 degrees. 6. Holding Lasix, NS 50 ml per hour for 48 hours. 7. Neurosurgery, Dr. Medley 8. Cardiac echo -trivial TR. Mild to moderate aortic sclerosis Overall impression: Considerable mass effect from large left hygroma, now evacuated 05/23. Much improved mentation and speech. Daily PT/OT. Transfer to Med surg. Consult hospitalist to assume care in [facility]. Robin Varghese MD May 27, 2017 16:44
[2017-05-28] VITALS (8 sets, daily range): BP systolic 100–140; BP diastolic 55–72; PULSE 73–92; RESP 18–20; TEMP 97.7–98.6; O2SAT 92–97
[2017-05-28] MEDS: CHLORHEXIDINE GLUCONATE 2 % 1 PACK (2 CLOTHS) TOP SCH (01:14)
[2017-05-28] MEDS: SODIUM CHLOR 0.9% 1000 ML INJ 1,000 ML IV SCH (05:37)
--- NOTE | 2017-05-28 11:22 | RADRPT ---
EXAM DATE/TIME: 05/28/2017 10:35 [place] COMPARISON: CT BRAIN W/O CONTRAST, May 24, 2017, 4:32. INDICATIONS : Intracerebral Hemorrhage follow up RADIATION DOSE: 45.49 CTDIvol (mGy) MEDICAL HISTORY : Cardiovascular disease. Hypertension. Deep venous thrombosis.Anemia, Cerebralvascular accident SURGICAL HISTORY : None. ENCOUNTER: Subsequent ACUITY: 1 week PAIN SCALE: 5/10 LOCATION: cranial TECHNIQUE: Multiple contiguous axial images were obtained of the head. Using automated exposure control and adj ustment of the mA and/or kV according to patient size, radiation dose was kept as low as reasonably a chievable to obtain optimal diagnostic quality images. DICOM format image data is available electro nically for review and comparison. FINDINGS: Soft tissue swelling over the left calvarium is noted. Persistent fluid collection in the left orbit ofrontal region measuring 1.6 cm with trace air. This extends higher with the left convexity. There is minimal mass effect associated with this. Right hemisphere is unremarkable. Ischemic changes ri ght cerebellar hemisphere. CONCLUSION: Postoperative changes as above with persistent fluid, air and mass effect left hemisp here.. Da Byrnes MD FACR on May 28, 2017 at 11:18 Board Certified Radiologist. This report was verified electronically.
[2017-05-28] MEDS: MEGESTROL ACETATE SUSP 400 MG/10 ML CUP PO SCH (11:24)
[2017-05-28] MEDS: METOPROLOL TARTRATE 100 MG TAB PO SCH ×2 (11:24→21:57)
[2017-05-28] MEDS: levETIRAcetam INJ 500 MG in SODIUM CHLORIDE 0.9% INJ 100 ML IV SCH (11:24)
[2017-05-28] MEDS: DOCUSATE SODIUM 50 MG/SENNA 8.6 MG TAB PO SCH ×2 (11:24→21:00)
[2017-05-28] MEDS: ATORVASTATIN 20 MG TAB PO SCH (11:24)
[2017-05-28] MEDS: LOSARTAN 50 MG TAB PO SCH (11:24)
[2017-05-28] MEDS: SODIUM CHLORIDE 0.9% FLUSH 10 ML FLUSH IV FLUSH SCH ×2 (11:25→21:56)
--- NOTE | 2017-05-28 15:30 | HHI.PR ---
Subjective Remarks Pt is a 81 y/o M with multiple medical problems including CAD, Atrial Fibrillation, and CKD. Pt was readmitted to [place] 05/22/17 d/t worsening lethargy. CT revealed large left hygroma with mass effect and midline shift. Pt's coumadin was reversed with KCentra and FFP. Pt underwent left craniotomy with evacution of SDH (05/23/17) by Dr. Medley. pt/ describe poor PO intake. Pt had 1 can of ensure for lunch. Pt was having poor PO intake even prior to current hospitalization. Objective Vitals Vital Signs Date Time Temp Pulse Resp B/P (MAP) Pulse Ox O2 Delivery O2 Flow Rate FiO2 05/28/17 11:30 98.2 92 20 128/67 (87) 92 05/28/17 08:44 97 05/28/17 08:18 98.3 82 20 140/63 (88) 94 05/28/17 05:20 Room Air 05/28/17 04:00 98.6 80 18 133/70 (91) 94 05/28/17 00:00 98.2 74 18 121/72 (88) 97 05/27/17 22:00 94 05/27/17 20:00 98.1 68 18 111/56 (74) 93 05/27/17 19:12 98.8 70 20 148/66 (93) 94 05/27/17 16:00 88 05/27/17 16:00 98.7 72 16 128/60 (82) 97 Result Diagram: 05/27/17 0450 05/27/17 0450 Imaging Last Impressions Head CT 05/27/17 0000 Signed Impressions: Service Date/Time: Sunday, May 28, 2017 10:35 - CONCLUSION: Postoperative changes as above with persistent fluid, air and mass effect left hemisphere.. Da Byrnes MD FACR Knee X-Ray 05/22/17904 Signed Impressions: Service Date/Time: April 09:52 - CONCLUSION: 1. Advanced tricompartmental degenerative osteoarthritis, most prominently in the medial compartment with essentially [id number]-ah-[id number] articulation. 2. No acute fracture or dislocation. Evangelista Holder MD Chest X-Ray 05/22/17904 Signed Impressions: Service Date/Time: April 09:52 - CONCLUSION: 1. Mild left lung base airspace disease, likely atelectasis. 2. Compensated cardiomegaly. Evangelista Holder MD Cervical Spine CT 05/22/17 0905 Signed Impressions: Service Date/Time: , May 22, 2017 10:16 - CONCLUSION: 1. No acute bony fracture. 2. Diffuse primary bony degenerative changes throughout the cervical spine 3. Bilateral facet arthritis at multiple levels. 4. Focal central bulging at C4-5 and C6-7. Drew Jha MD Objective Remarks GENERAL: This is a well-nourished, well-developed patient, in no apparent distress. CARDIOVASCULAR: Regular rate and rhythm without murmurs, gallops, or rubs. RESPIRATORY: Clear to auscultation. Breath sounds equal bilaterally. No wheezes , rales, or rhonchi. GASTROINTESTINAL: Abdomen soft, non-tender, nondistended. Normal active bowel sounds MUSCULOSKELETAL: Extremities without clubbing, cyanosis, or edema. NEURO: Alert & Oriented x4 to person, place, time, situation. Moves all ext x4 A/P Problem List: (1) Subdural hygroma ICD Codes: D18.1 - Lymphangioma, any site Status: Acute Plan: - pt admitted with c/o lethargy - CT brain (05/22/17) large left hygroma with midline shift and mass effect - Pt underwent left craniotomy with evacuation of SDH (05/23/17) performed by Dr. Medley - PT - clinically mentation improved from admission - SCDs for DVT prophylaxis (2) Appetite absent ICD Codes: R63.0 - Anorexia Status: Acute Plan: - poor PO intake started prior to hospitalization - likely reflective of worsening disease states - continue megace - obtain calorie count - may need feeding tube if pt/family want continued aggressive care (3) HTN (hypertension) ICD Codes: I10 - Essential (primary) hypertension Status: Chronic Plan: - stable - metoprolol, cozaar (4) CKD (chronic kidney disease) stage 3, GFR 30-59 ml/min ICD Codes: N18.3 - Chronic kidney disease, stage 3 (moderate) Status: Chronic Plan: - Pt follows with Nephrology, Dr. Vidal - Cr 1.7 (05/22), 2.0 (05/28) (5) Atrial fibrillation ICD Codes: I48.91 - Unspecified atrial fibrillation Status: Chronic Plan: - stable - metoprolol - coumadin reversed for craniotomy (6) CAD (coronary artery disease) ICD Codes: I25.10 - Atherosclerotic heart disease of [place] coronary artery without angina pectoris Status: Chronic Plan: - metoprolol, lipitor Problem Qualifiers (1) HTN (hypertension): Qualified Codes: I10 - Essential (primary) hypertension (2) Atrial fibrillation: Qualified Codes: I48.2 - Chronic atrial fibrillation (3) CAD (coronary artery disease): Qualified Codes: I25.10 - Atherosclerotic heart disease of [place] coronary artery without angina pectoris Michael Rich DO May 28, 2017 15:30
--- NOTE | 2017-05-28 16:24 | PD.CONS ---
HPI Service Nephrology Consult Requested By Reason for Consult Hx CKD Primary Care Physician Vipul Eid MD History of Present Illness This is a very pleasant 81 y/o male patient. He was admitted May 22 after lower extremity weakness persisted. On arrival to ER he was found to have a subdural hygroma with a midline shift. A craniotomy was performed on 05/23. He has been doing well. PMH listed below. He has CKD 3, baseline creatinine 1.6- 2. He was admitted with creatinine of 1.7, it has varied and is 2.0 today. He is making urine. We were consulted to assist with management. Of significance he was on hemodialysis last year, but his renal function improved. He formerly had lymphedema but it has markedly improved. He is verbal, not complaining of anything specific. He is a full code. (Laisha Licea) Review of Systems Constitutional: DENIES: Fatigue Neurologic: COMPLAINS OF: Abnormal gait, Headache, Poor Balance, DENIES: Speech Problems (Laisha Licea) Past Family Social History Allergies: Coded Allergies: azithromycin (Verified Allergy, Severe, UNKNOWN, 05/22/17) enalaprilat (Verified Allergy, Severe, FACIAL EDEMA, 05/22/17) penicillin G (Verified Allergy, Severe, ANAPHYLAXIS, 05/22/17) Past Medical History Hypertension CKD, baseline creatinine around 1.6 Congestive heart failure Atrial fibrillation Coronary artery disease Chronic edema Morbid obesity Past Surgical History Coronary artery bypass graft 3 years ago Vasectomy Left carotid endarterectomy Right finger tips Right knee arthroscopy Reported Medications Oxycodone-Acetaminophen 7.5-325 mg Tab 1 Tab PO Q4H PRN Walker with Front Wheels (Device) 1 Mis Mis 1 Ea .ROUTE DIRECTED Metoprolol Succinate ER 24 HR (Metoprolol Succinate) 100 Mg Tab 100 Mg PO DAILY Losartan (Losartan Potassium) 50 Mg Tab 50 Mg PO DAILY Furosemide 40 Mg Tab 40 Mg PO DAILY Coumadin (Warfarin) 3 Mg Tab 3 Mg PO DAILY Tamsulosin (Tamsulosin HCl) 0.4 Mg Cap 0.4 Mg PO HS Atorvastatin (Atorvastatin Calcium) 20 Mg Tab 20 Mg PO HS Allopurinol 100 Mg Tab 100 Mg PO DAILY Active Ordered Medications Current Medications Medications (Trade) Dose Ordered Sig/Deni Route Start Time Stop Time Status Last Admin (Trandate Inj) 20 mg Q15M PRN IV PUSH 05/22/17 11:15 (Apresoline Inj) 10 mg Q30M PRN IV PUSH 05/22/17 11:15 05/23/17 20:43 (Zofran Inj) 4 mg Q6H PRN IV PUSH 05/22/17 11:15 (Duoneb Neb) 1 ampule Q2HR NEB PRN INH 05/22/17 11:15 Miscellaneous Information 1 Q361D XX 05/22/17 11:15 (Chlorhexidine 2% Cloth) Taper DAILY@04 TOP 05/23/17 04:00 05/19/18 03:59 (Chlorhexidine 2% Cloth) 3 pack UNSCH PRN TOP 05/22/17 11:15 (Yamileth-Colace) 1 tab BID PO 05/22/17 21:00 05/28/17 11:24 (Tylenol) 650 mg Q4H PRN PO 05/22/17 12:45 (Benadryl) 25 mg Q4H PRN PO 05/22/17 12:45 (Lopressor) 100 mg Q12HR PO 05/22/17 21:00 05/28/17 11:24 (Lipitor) 20 mg DAILY PO 05/23/17 09:00 05/28/17 11:24 (Cozaar) 50 mg DAILY PO 05/23/17 09:00 05/28/17 11:24 (Lasix) 40 mg DAILY PO 05/23/17 09:00 Future Hold 05/26/17 10:38 (NS Flush) 2 ml UNSCH PRN IV FLUSH 05/23/17 10:15 (NS Flush) 2 ml BID IV FLUSH 05/23/17 21:00 05/28/17 11:25 (Ativan Inj) 1 mg Q1H PRN IV PUSH 05/23/17 10:15 (Mag-Al Plus Susp Liq) 30 ml Q6H PRN PO 05/23/17 10:15 (Morphine Inj) 2 mg Q2H PRN IV 05/23/17 11:15 05/25/17 11:42 (Trandate Inj) 10 mg Q1H PRN IV PUSH 05/23/17 10:15 (Catapres) 0.1 mg Q6H PRN PO 05/23/17 10:15 05/26/17 15:41 (Milk Of Magnesia Liq) 30 ml Q12H PRN PO 05/23/17 10:15 (Senokot) 17.2 mg Q12H PRN PO 05/23/17 10:15 (Dulcolax Supp) 10 mg DAILY PRN RECTAL 05/23/17 10:15 (Lactulose Liq) 30 ml DAILY PRN PO 05/23/17 10:15 (Percocet 7.5-325 Mg) 1 tab Q4H PRN PO 05/24/17 21:45 05/27/17 00:42 (Megace Liq) 400 mg DAILY PO 05/25/17 17:00 05/28/17 11:24 Family History Non contributory Social History Non smoking He is Full code Retired (Laisha Licea) Physical Exam Vital Signs Vital Signs Date Time Temp Pulse Resp B/P (MAP) Pulse Ox O2 Delivery O2 Flow Rate FiO2 05/28/17 15:55 98.0 73 20 100/55 (70) 92 05/28/17 11:30 98.2 92 20 128/67 (87) 92 05/28/17 08:44 97 05/28/17 08:18 98.3 82 20 140/63 (88) 94 05/28/17 05:20 Room Air 05/28/17 04:00 98.6 80 18 133/70 (91) 94 05/28/17 00:00 98.2 74 18 121/72 (88) 97 05/27/17 22:00 94 05/27/17 20:00 98.1 68 18 111/56 (74) 93 05/27/17 19:12 98.8 70 20 148/66 (93) 94 Physical Exam male, awake alert and oriented No neuro deficit detected S1/S2, RRR no murmurs Lungs clear Obese, soft abdomen Ext minimal edema craniotomy anthony left scalp Laboratory Date/Time Source Procedure Growth Status 05/22/17 10:35 Urine Clean Catch Urine Culture - Final <10,000 CFU/ML MIXED GRAM POSITIVE FL... Complete (Laisha Licea) Result Diagram: 05/27/17 0450 05/27/17 0450 Imaging Last [address] 05/27/17 0000 Signed Impressions: Service Date/Time: Sunday, May 28, 2017 10:35 - CONCLUSION: Postoperative changes as above with persistent fluid, air and mass effect left hemisphere.. Da Byrnes MD FACR (Laisha Licea) Assessment and Plan Problem List: (1) CKD (chronic kidney disease) stage 3, GFR 30-59 ml/min ICD Codes: N18.3 - Chronic kidney disease, stage 3 (moderate) Status: Chronic Plan: His creatinine is near his baseline Diuretics held, IVF started Stop IVF and monitor Replace electrolytes as needed. He is non oliguric repeat labs in AM Avoid nephrotoxic agents (2) HTN (hypertension) ICD Codes: I10 - Essential (primary) hypertension Status: Chronic Plan: Continue present medications (3) Subdural hygroma ICD Codes: D18.1 - Lymphangioma, any site Status: Acute Plan: s/p craniotomy serial imaging, neurosurgery to manage (Laisha Licea) Assessment and Plan patient was seen and examined. Discussed with Dr. Rich. Agree with above assessment and plan. Monitor oral intake, continue appetite stimulant. Renal function near baseline. Lower extremity edema is significantly better compared to baseline. (Donny Vidal MD) Problem Qualifiers (1) HTN (hypertension): Qualified Codes: I10 - Essential (primary) hypertension Laisha Licea May 28, 2017 16:24 Donny Vidal MD May 28, 2017 18:14
--- NOTE | 2017-05-28 16:51 | HHI.NSPN ---
(Caroline Ulloa) Note Status Status: Progress Note (Caroline Ulloa) Interval History Interval History 05/22: An 81-year-old gentleman who was brought into [facility] emergency room with progressive decline in his neurologic status. For the past at least a month or so he has complained of headaches on the right side the head and the neck and also in levels of alertness and confusion along with generalized weakness, particularly the right side. He was using a walker to ambulate up until about two weeks ago when even getting him a wheelchair was difficult as his legs would give out on him. He has a poor appetite and in the last several weeks has not eaten much at all. He has a history of renal failure and makes urine but not much, according to the and, at one point, was on dialysis but he is off it now. He is on Coumadin ever since his heart coronary bypass surgery in 2011 for atrial fibrillation and also has a history of congestive heart failure. A CT scan of the head obtained reveals a large left hemisphere multi-loculated subdural hemorrhage, subacute and chronic with three areas of loculations and septations, small areas of acute hemorrhage. There is about 12 mm of [id number] midline shift and the subdural hemorrhage measures 19 mm in maximal thickness with effacement of the left lateral ventricle from the compression. CT of the cervical spine reveals multilevel degenerative changes with some mild disk protrusions but no fractures noted. 05/23: The patient was taken to the operating room and underwent a left craniotomy for evacuation of the subdural haematoma. Post-operatively the patient returned to [facility] for further care and monitoring. 05/24: This morning when seen the patient is doing well and readily interacts. He is unable to say whether he has a headache or not. He does deny any dizziness or nausea. He readily jokes and smiles as he is being evaluated. He is moving all extremities spontaneously. 05/25: When seen this morning the patient is asleep but opens his eyes to voice. After that he is awake and readily interacts. He has some tenderness to the surgical incision but no headache, dizziness or nausea. He spontaneously moves all extremities. 05/26/17: alert, mild surgical pain. otherwise doing well. no changes to neuro checks overnight. 05/28/17: pt not seen earlier during rounds as he was in CAT scan. f/u CT Head shows stable extra axial fluid collection over left frontal without significant mass effect (Caroline Ulloa) Labs, Micro, & Vital Signs Results Date Time Temp Pulse Resp B/P (MAP) Pulse Ox O2 Delivery O2 Flow Rate FiO2 05/28/17 15:55 98.0 73 20 100/55 (70) 92 05/28/17 11:30 98.2 92 20 128/67 (87) 92 05/28/17 08:44 97 05/28/17 08:18 98.3 82 20 140/63 (88) 94 05/28/17 05:20 Room Air 05/28/17 04:00 98.6 80 18 133/70 (91) 94 05/28/17 00:00 98.2 74 18 121/72 (88) 97 05/27/17 22:00 94 05/27/17 20:00 98.1 68 18 111/56 (74) 93 05/27/17 19:12 98.8 70 20 148/66 (93) 94 05/29/17 07:00 Intake Total 600 ml Balance 600 ml Constitutional Vital Signs Date Time Temp Pulse Resp B/P (MAP) Pulse Ox O2 Delivery O2 Flow Rate FiO2 05/28/17 15:55 98.0 73 20 100/55 (70) 92 05/28/17 11:30 98.2 92 20 128/67 (87) 92 05/28/17 08:44 97 05/28/17 08:18 98.3 82 20 140/63 (88) 94 05/28/17 05:20 Room Air 05/28/17 04:00 98.6 80 18 133/70 (91) 94 05/28/17 00:00 98.2 74 18 121/72 (88) 97 05/27/17 22:00 94 05/27/17 20:00 98.1 68 18 111/56 (74) 93 05/27/17 19:12 98.8 70 20 148/66 (93) 94 05/29/17 07:00 Intake Total 600 ml Balance 600 ml (Caroline Ulloa) Physical Exam (Caroline Ulloa) Medications Current Medications Current Medications Medications (Trade) Dose Ordered Sig/Deni Route PRN Reason Start Time Stop Time Status Last Admin Dose Admin Labetalol HCl (Trandate Inj) 20 mg Q15M PRN IV PUSH sbp > 140 05/22/17 11:15 Hydralazine HCl (Apresoline Inj) 10 mg Q30M PRN IV PUSH sbp > 140 05/22/17 11:15 05/23/17 20:43 Ondansetron HCl (Zofran Inj) 4 mg Q6H PRN IV PUSH NAUSEA OR VOMITING 05/22/17 11:15 Albuterol/ Ipratropium (Duoneb Neb) 1 ampule Q2HR NEB PRN INH WHEEZING 05/22/17 11:15 Miscellaneous Information 1 Q361D XX 05/22/17 11:15 Chlorhexidine Gluconate (Chlorhexidine 2% Cloth) Taper DAILY@04 TOP 05/23/17 04:00 05/19/18 03:59 Chlorhexidine Gluconate (Chlorhexidine 2% Cloth) 3 pack UNSCH PRN [facility] 05/22/17 11:15 Senna/Docusate Sodium (Yamileth-Colace) 1 tab BID PO 05/22/17 21:00 05/28/17 11:24 Acetaminophen (Tylenol) 650 mg Q4H PRN PO SEE LABEL COMMENTS 05/22/17 12:45 Diphenhydramine HCl (Benadryl) 25 mg Q4H PRN PO SEE LABEL COMMENTS 05/22/17 12:45 Metoprolol Tartrate (Lopressor) 100 mg Q12HR PO 05/22/17 21:00 05/28/17 11:24 Atorvastatin Calcium (Lipitor) 20 mg DAILY PO 05/23/17 09:00 05/28/17 11:24 Losartan Potassium (Cozaar) 50 mg DAILY PO 05/23/17 09:00 05/28/17 11:24 Furosemide (Lasix) 40 mg DAILY PO 05/23/17 09:00 Future Hold 05/26/17 10:38 Sodium Chloride (NS Flush) 2 ml UNSCH PRN IV FLUSH FLUSH AFTER USING IV ACCESS 05/23/17 10:15 Sodium Chloride (NS Flush) 2 ml BID IV FLUSH 05/23/17 21:00 05/28/17 11:25 Lorazepam (Ativan Inj) 1 mg Q1H PRN IV PUSH SEIZURES 05/23/17 10:15 Al Hydrox/Mg Hydrox/Simethicone (Mag-Al Plus Susp Liq) 30 ml Q6H PRN PO DYSPEPSIA 05/23/17 10:15 Morphine Sulfate (Morphine Inj) 2 mg Q2H PRN IV BREAKTHROUGH PAIN >6 05/23/17 11:15 05/25/17 11:42 Labetalol HCl (Trandate Inj) 10 mg Q1H PRN IV PUSH SYS BP GREATER THAN 170 MMHG 05/23/17 10:15 Clonidine (Catapres) 0.1 mg Q6H PRN PO SYS BP GREATER THAN 170 MMHG 05/23/17 10:15 05/26/17 15:41 Magnesium Hydroxide (Milk Of Magnesia Liq) 30 ml Q12H PRN PO Mild constipation 05/23/17 10:15 Sennosides (Senokot) 17.2 mg Q12H PRN PO Moderate constipation 05/23/17 10:15 Bisacodyl (Dulcolax Supp) 10 mg DAILY PRN RECTAL SEVERE CONSITIPATION 05/23/17 10:15 Lactulose (Lactulose Liq) 30 ml DAILY PRN PO SEVERE CONSITIPATION 05/23/17 10:15 Oxycodone/ Acetaminophen (Percocet 7.5-325 Mg) 1 tab Q4H PRN PO PAIN 1-10 05/24/17 21:45 05/27/17 00:42 Megestrol Acetate (Megace Liq) 400 mg DAILY PO 05/25/17 17:00 05/28/17 11:24 (Caroline Ulloa) Medical Decision Making MDM Remarks 1. Large left frontotemporal parietal multi-loculated subacute on chronic subdural hemorrhage with significant mass effect and midline shift s/p left craniotomy for evacuation of SDH 2. Atrial fibrillation on chronic Coumadin therapy 3. History of renal failure. 4. Congestive heart failure, history of coronary artery bypass grafting. stable follow up CT Head 05/28/17, residual left subdural fluid collection - no significant mass effect or midline shift (Caroline Ulloa) Plan Plan Remarks cont serial neuro checks nonchemical dvt prophylaxis in view of acute ICH protonix for stress ulcer prophylaxis cont therapy and mobilize OOB with assistance cont rehab efforts (Caroline Ulloa) Attending Statement The exam, history, and the medical decision-making described in the above note were completed with the assistance of the mid-level provider. I reviewed and agree with the findings presented. I attest that I had a [id number] encounter with the patient on the same day, and personally performed and documented my assessment and findings in the medical record. (Tim Joseph MD) Caroline Ulloa May 28, 2017 16:51 Tim Joseph MD May 30, 2017 10:19
[2017-05-29] VITALS (8 sets, daily range): BP systolic 129–160; BP diastolic 61–77; PULSE 72–90; RESP 17–18; TEMP 97.7–98.4; O2SAT 96–98
[2017-05-29] MEDS: CHLORHEXIDINE GLUCONATE 2 % 1 PACK (2 CLOTHS) TOP SCH ×2 (00:51→21:56)
[2017-05-29] MEDS: SODIUM CHLORIDE 0.9% FLUSH 10 ML FLUSH IV FLUSH SCH ×2 (09:00→21:56)
[2017-05-29] MEDS: MEGESTROL ACETATE SUSP 400 MG/10 ML CUP PO SCH (09:39)
[2017-05-29] MEDS: ATORVASTATIN 20 MG TAB PO SCH (09:40)
[2017-05-29] MEDS: METOPROLOL TARTRATE 100 MG TAB PO SCH ×2 (09:40→21:55)
[2017-05-29] MEDS: LOSARTAN 50 MG TAB PO SCH (09:40)
[2017-05-29] MEDS: DOCUSATE SODIUM 50 MG/SENNA 8.6 MG TAB PO SCH ×2 (09:41→21:56)
--- NOTE | 2017-05-29 12:29 | HHI.NPPN ---
Subjective General Problems: Anemia Renal Failure: Chronic, Acute, Stage III Interval History His renal function is slightly worse. Poor PO intake. (Laisha Licea) Review of Systems General Constitutional: Fatigue (Laisha Licea) Objective Data Data Vital Signs Date Time Temp Pulse Resp B/P (MAP) Pulse Ox O2 Delivery O2 Flow Rate FiO2 05/29/17 11:44 89 05/29/17 09:40 Room Air 05/29/17 08:00 98.4 86 18 160/77 (104) 97 05/29/17 05:24 97.7 79 18 139/70 (93) 98 05/29/17 01:10 98.1 78 18 141/76 (97) 96 05/29/17 00:00 90 05/28/17 21:30 85 05/28/17 21:30 Room Air 05/28/17 20:54 97.7 82 18 120/59 (79) 95 05/28/17 15:55 98.0 73 20 100/55 (70) 92 (Laisha Licea) -: 05/27/17 0450 05/27/17 0450 Imaging Last [address] 05/27/17 0000 Signed Impressions: Service Date/Time: Sunday, May 28, 2017 10:35 - CONCLUSION: Postoperative changes as above with persistent fluid, air and mass effect left hemisphere.. Da Byrnes MD FACR (Laisha Licea) Physical Exam General Appearance: Well Developed, Well Nourished, No Acute Distress (Laisha Licea) Eyes Eye Exam: Pupils Equal (Laisha Licea) Throat Throat Exam: Oral Mucosa [place] & Moist (Laisha Licea) Neck Neck Exam: Neck Supple (Laisha Licea) Pulmonary Resp Exam: Clear Bilaterally, Breath Sounds Equal (Laisha Licea) Cardiology CV Exam: Good Perfusion, Arrhythmia (Laisha Licea) Gastrointestinal/Abdomen GI Exam: Soft, Non-Tender (Laisha Licea) Musculoskeletal MS Exam: Joints Intact, Normal Gait (Laisha Licea) Integumentary Skin Exam: Warm, Dry Skin Remarks anthony left cranium (Laisha Licea) Extremeties Extremities Exam: Pedal Pulses Palpable, Trace Edema (Laisha Licea) Neurologic Neuro Exam: Alert, Awake, Oriented, Speech Clear, Moving All Extremities (Laisha Licea) Psychiatric Psych Exam: Appropriate Responses (Laisha Licea) Assessment/Plan Discussed Condition With: Patient Assessment Summary: Hypertension Problem List: (1) CKD (chronic kidney disease) stage 3, GFR 30-59 ml/min ICD Codes: N18.3 - Chronic kidney disease, stage 3 (moderate) Status: Chronic Plan: His renal function is slightly worse Diuretics on hold Replace electrolytes as needed. He is non oliguric repeat labs in AM Edema has improved Avoid nephrotoxic agents PO intake encouraged (2) HTN (hypertension) ICD Codes: I10 - Essential (primary) hypertension Status: Chronic Plan: Continue present medications (3) Subdural hygroma ICD Codes: D18.1 - Lymphangioma, any site Status: Acute Plan: s/p craniotomy serial imaging, neurosurgery to manage (Laisha Licea) Plan patient was seen and examined. Renal function is overall stable. No significant edema. Continue off of diuretic. (Donny Vidal MD) Problem Qualifiers (1) HTN (hypertension): Qualified Codes: I10 - Essential (primary) hypertension Laisha Licea May 29, 2017 12:29 Donny Vidal MD May 29, 2017 15:31
[2017-05-29 13:33] LABS: BICARBONATE 31.1 MEQ/L (21.0-32.0); CALCIUM 9.1 MG/DL (8.5-10.1); CREATININE 2.11 MG/DL (0.60-1.30)
[2017-05-29] MEDS ORDERED: POTASSIUM CHLORIDE 20 MEQ CONTROLLED RELEASE TAB PO ONE (15:15)
--- NOTE | 2017-05-29 15:17 | HHI.PR ---
Subjective Remarks Patient sitting up in chair reports feeling better today. c/o soreness in the neck reports appetite improved some today and reports that he has been able to eat more today Objective Vitals Vital Signs Date Time Temp Pulse Resp B/P (MAP) Pulse Ox O2 Delivery O2 Flow Rate FiO2 05/29/17 12:00 98.2 72 18 129/61 (83) 97 05/29/17 11:44 89 05/29/17 09:40 Room Air 05/29/17 08:00 98.4 86 18 160/77 (104) 97 05/29/17 05:24 97.7 79 18 139/70 (93) 98 05/29/17 01:10 98.1 78 18 141/76 (97) 96 05/29/17 00:00 90 05/28/17 21:30 85 05/28/17 21:30 Room Air 05/28/17 20:54 97.7 82 18 120/59 (79) 95 05/28/17 15:55 98.0 73 20 100/55 (70) 92 Result Diagram: 05/27/17 0450 05/29/17 1209 Other Results Laboratory Tests Test 05/27/17 04:50 05/29/17 12:09 White Blood Count 11.0 TH/MM3 Red Blood Count 3.00 MIL/MM3 Hemoglobin 10.0 GM/DL Hematocrit 29.1 % Mean Corpuscular Volume 97.1 FL Mean Corpuscular Hemoglobin 33.3 PG Mean Corpuscular Hemoglobin Concent 34.3 % Red Cell Distribution Width 14.6 % Platelet Count 214 TH/MM3 Mean Platelet Volume 9.6 FL CBC Comment AUTO DIFF Differential Total Cells Counted 100 Neutrophils % (Manual) 78 % Band Neutrophils % 1 % Lymphocytes % 11 % Monocytes % 8 % Eosinophils % 1 % Basophils % 1 % Neutrophils # (Manual) 8.7 TH/MM3 Differential Comment FINAL DIFF MANUAL Platelet Estimate NORMAL Platelet Morphology Comment NORMAL Ovalocytes 1+ Acanthocytes OCC Hematology Comments Blood Urea Nitrogen 20 MG/DL 19 MG/DL Creatinine 2.00 MG/DL 2.11 MG/DL Random Glucose 91 MG/DL 93 MG/DL Total Protein 6.4 GM/DL Albumin 2.2 GM/DL Calcium Level 8.5 MG/DL 9.1 MG/DL Alkaline Phosphatase 86 U/L Aspartate Amino Transf (AST/SGOT) 16 U/L Alanine Aminotransferase (ALT/SGPT) LESS THAN 6 U/L Total Bilirubin 2.2 MG/DL Sodium Level 136 MEQ/L 136 MEQ/L Potassium Level 3.6 MEQ/L 3.1 MEQ/L Chloride Level 97 MEQ/L 96 MEQ/L Carbon Dioxide Level 32.4 MEQ/L 31.1 MEQ/L Anion Gap 7 MEQ/L 9 MEQ/L Estimat Glomerular Filtration Rate 39 ML/MIN 37 ML/MIN Imaging Last Impressions Head CT 05/27/17 0000 Signed Impressions: Service Date/Time: Sunday, May 28, 2017 10:35 - CONCLUSION: Postoperative changes as above with persistent fluid, air and mass effect left hemisphere.. Da Byrnes MD FACR Knee X-Ray 05/22/17904 Signed Impressions: Service Date/Time: April 09:52 - CONCLUSION: 1. Advanced tricompartmental degenerative osteoarthritis, most prominently in the medial compartment with essentially [id number] articulation. 2. No acute fracture or dislocation. Evangelista Holder MD Chest X-Ray 05/22/17904 Signed Impressions: Service Date/Time: April 09:52 - CONCLUSION: 1. Mild left lung base airspace disease, likely atelectasis. 2. Compensated cardiomegaly. Evangelista Holder MD Cervical Spine CT 05/22/17904 Signed Impressions: Service Date/Time: April 10:16 - CONCLUSION: 1. No acute bony fracture. 2. Diffuse primary bony degenerative changes throughout the cervical spine 3. Bilateral facet arthritis at multiple levels. 4. Focal central bulging at C4-5 and C6-7. Drew Jha MD Objective Remarks GENERAL: This is a 81 year old male, well-developed patient, in no apparent distress. CARDIOVASCULAR: Regular rate and rhythm RESPIRATORY: Clear to auscultation. Breath sounds equal bilaterally. GASTROINTESTINAL: Abdomen soft, non-tender, nondistended. Normal active bowel sounds MUSCULOSKELETAL: Extremities without clubbing, cyanosis, or edema. NEURO: Alert & Oriented x4 to person, place, time, situation. Moves all ext x4 A/P Problem List: (1) Subdural hygroma ICD Codes: D18.1 - Lymphangioma, any site Status: Acute Plan: - pt admitted with c/o lethargy - CT brain (05/22/17) large left hygroma with midline shift and mass effect - Pt underwent left craniotomy with evacuation of SDH (05/23/17) performed by Dr. Medley - PT - clinically mentation improved from admission - repeat CT head reveals: Postoperative changes as above with persistent fluid, air and mass effect left hemisphere - SCDs for DVT prophylaxis - discussed with Neurosurgery ok to DC - plan to DC tomorrow to acute vs inpatient rehab- awaiting authorization (2) Appetite absent ICD Codes: R63.0 - Anorexia Status: Acute Plan: - poor PO intake started prior to hospitalization - likely reflective of worsening disease states - continue megace - obtain calorie count - may need feeding tube if pt/family want continued aggressive care. Patient reports his appetite has improve some today and has been able to eat more today. Patient and do not want feeling tube (3) HTN (hypertension) ICD Codes: I10 - Essential (primary) hypertension Status: Chronic Plan: - stable - metoprolol, cozaar (4) CKD (chronic kidney disease) stage 3, GFR 30-59 ml/min ICD Codes: N18.3 - Chronic kidney disease, stage 3 (moderate) Status: Chronic Plan: - Pt follows with Nephrology, Dr. Vidal - Cr 1.7 (05/22), 2.0 (05/28), 2.11 (05/29) (5) Atrial fibrillation ICD Codes: I48.91 - Unspecified atrial fibrillation Status: Chronic Plan: - stable - metoprolol - coumadin reversed for craniotomy (6) CAD (coronary artery disease) ICD Codes: I25.10 - Atherosclerotic heart disease of [place] coronary artery without angina pectoris Status: Chronic Plan: - metoprolol, lipitor (7) Hypokalemia ICD Codes: E87.6 - Hypokalemia Plan: potassium 3.1 replaced with 20 meq KCL PO recheck BMP in AM Assessment and Plan Patient examined. Assessment and plan formulated with Reva Mandujano PA-C. I agree with the above. Problem Qualifiers (1) HTN (hypertension): Qualified Codes: I10 - Essential (primary) hypertension (2) Atrial fibrillation: Qualified Codes: I48.2 - Chronic atrial fibrillation (3) CAD (coronary artery disease): Qualified Codes: I25.10 - Atherosclerotic heart disease of [place] coronary artery without angina pectoris Reva Mandujano May 29, 2017 15:17 Michael Rich DO Jun 04, 2017 23:40
[2017-05-29] MEDS ORDERED: ACETAMINOPHEN 500 MG CPLT PO PRN (17:00)
--- NOTE | 2017-05-29 19:46 | HHI.NSPN ---
History Chief Complaint: Surgical incision sore and slightly numb Interval History 81-year-old male underwent a left craniotomy evacuation of chronic subdural hematoma of . 05/24/17: Mild headache. No nausea vomiting. No blurred vision or diplopia. Patient's states that less confusion today. No difficulty with sleep reported. 05/29/2017: Sitting up in chair awake and alert. Speech clear and appropriate Recent and remote memory intact. His friend in the room states that the patient's mental status is back to baseline Exam Results Vital Signs Date Time Temp Pulse Resp B/P (MAP) Pulse Ox O2 Delivery O2 Flow Rate FiO2 05/29/17 16:00 98.2 80 18 141/70 (93) 97 05/29/17 09:40 Room Air 05/27/17 08:12 1.00 05/27/17 07:00 21 Intake and Output 05/29/17 05/29/17 05/30/17 08:00 16:00 00:00 Output Total 4000 ml Balance -4000 ml Physical Examination Gen.: Sitting up in chair, no apparent distress Neurologic: Awake and alert oriented conversant and appropriate Speech is clear Recent and remote memory appear reasonably intact Follow simple commands well Answer questions appropriately Reasonable judgment and insight Extraocular movements intact Facial movement symmetric Sensation intact by touch all extremities Strength normal major flexion extension groups all extremities Scalp incision dry and intact with mild scalp edema, no drainage, no erythema Lab, Micro, Other Results Laboratory Tests Test 05/29/17 12:09 Blood Urea Nitrogen 19 MG/DL Creatinine 2.11 MG/DL Random Glucose 93 MG/DL Calcium Level 9.1 MG/DL Sodium Level 136 MEQ/L Potassium Level 3.1 MEQ/L Chloride Level 96 MEQ/L Carbon Dioxide Level 31.1 MEQ/L Anion Gap 9 MEQ/L Estimat Glomerular Filtration Rate 37 ML/MIN Medical Decision Making Impression and Plan Impression: 1. Doing well following left craniotomy evacuation chronic subdural hematoma. CT scan with minimal residual subdural hematoma without significant mass effect 2. Hypertension. Adequately control her present medications Plan: Discussed with patient in the presence of a friend in the room today He is stable for discharge from neurosurgical standpoint. He will follow up with Dr.Khanna Baptiste out at approximately 10 days postoperative. I discussed at length with the patient. All questions answered. El Medley MD May 29, 2017 19:46
[2017-05-29] MEDS: oxyCODONE/ACETAMINOPHEN 7.5 MG/325 MG TAB PO PRN (21:55)
[2017-05-30] VITALS (7 sets, daily range): BP systolic 98–151; BP diastolic 52–63; PULSE 69–82; RESP 18; TEMP 98.1–98.4; O2SAT 94–98
[2017-05-30 09:01] LABS: ALBUMIN 2.4 GM/DL (3.4-5.0); BICARBONATE 34.3 MEQ/L (21.0-32.0); CALCIUM 9.1 MG/DL (8.5-10.1); CREATININE 2.12 MG/DL (0.60-1.30)
[2017-05-30 09:03] LABS: PHOSPHORUS 2.4 MG/DL (2.5-4.9)
[2017-05-30] MEDS ORDERED: Megestrol Liq PO (09:26)
[2017-05-30] MEDS ORDERED: METO-338 PO (09:26)
--- NOTE | 2017-05-30 09:36 | HHI.DS ---
Discharge Summary Admission Date May 22, 2017 at 11:11 Discharge Date: May 31, 2017 Admitting Diagnosis SUBDURAL HYGROMA (1) Subdural hygroma Diagnosis: Principal ICD Codes: D18.1 - Lymphangioma, any site Status: Acute (2) HTN (hypertension) Diagnosis: Secondary ICD Codes: I10 - Essential (primary) hypertension Status: Chronic (3) CKD (chronic kidney disease) stage 3, GFR 30-59 ml/min Diagnosis: Secondary ICD Codes: N18.3 - Chronic kidney disease, stage 3 (moderate) Status: Chronic (4) Atrial fibrillation Diagnosis: Secondary ICD Codes: I48.91 - Unspecified atrial fibrillation Status: Chronic (5) CAD (coronary artery disease) Diagnosis: Secondary ICD Codes: I25.10 - Atherosclerotic heart disease of [place] coronary artery without angina pectoris Status: Chronic (6) Hypokalemia Diagnosis: Principal ICD Codes: E87.6 - Hypokalemia Consultants Dr. Hall, Neurosurgery Dr. Vidal, Nephrology Dr. Velazquez, Machine Packaging Technician Procedures Left craniotomy for subdural hemorrhage evacuation 05/23/[address] Hall CBC/BMP: 05/27/17 0450 05/30/17 0718 Significant Findings Laboratory Tests Test 05/29/17 12:09 05/30/17 07:18 Blood Urea Nitrogen 19 MG/DL (7-18) 19 MG/DL (7-18) Creatinine 2.11 MG/DL (0.60-1.30) 2.12 MG/DL (0.60-1.30) Potassium Level 3.1 MEQ/L (3.5-5.1) 3.2 MEQ/L (3.5-5.1) Chloride Level 96 MEQ/L (98-107) 95 MEQ/L (98-107) Estimat Glomerular Filtration Rate 37 ML/MIN (>89) 37 ML/MIN (>89) Albumin 2.4 GM/DL (3.4-5.0) Phosphorus Level 2.4 MG/DL (2.5-4.9) Carbon Dioxide Level 34.3 MEQ/L (21.0-32.0) PE at Discharge GENERAL: This is a 81 year old male, well-developed patient, in no apparent distress. CARDIOVASCULAR: Regular rate and rhythm RESPIRATORY: Clear to auscultation. Breath sounds equal bilaterally. GASTROINTESTINAL: Abdomen soft, non-tender, nondistended. Normal active bowel sounds MUSCULOSKELETAL: Extremities without clubbing, cyanosis, or edema. NEURO: Alert & Oriented x4 to person, place, time, situation. Moves all ext x4 Hospital Course Subdural hygroma - pt admitted with c/o lethargy - CT brain (05/22/17) large left hygroma with midline shift and mass effect - Pt underwent left craniotomy with evacuation of SDH (05/23/17) performed by Dr. Medley - PT - clinically mentation improved from admission - repeat CT head reveals: Postoperative changes as above with persistent fluid, air and mass effect left hemisphere - SCDs for DVT prophylaxis - discussed with Neurosurgery ok to DC, will need outpatient follow up with Dr. Hall - [place] home with [facility] Appetite absent - poor PO intake started prior to hospitalization - likely reflective of worsening disease states - continue megace - obtain calorie count - may need feeding tube if pt/family want continued aggressive care. Patient reports his appetite has improve some today and has been able to eat more today. Patient and do not want feeling tube HTN (hypertension) - stable - metoprolol, cozaar CKD (chronic kidney disease) stage 3, GFR 30-59 ml/min - Pt follows with Nephrology, Dr. Vidal - Cr 1.7 (05/22), 2.0 (05/28), 2.11 (05/29), 2.12 (05/30) Atrial fibrillation - metoprolol - coumadin reversed for craniotomy. Continue to hold Coumadin until cleared by neurosurgery to resume CAD (coronary artery disease) - metoprolol, lipitor Hypokalemia potassium 3.2 replaced recheck BMP in 2-3 days Pt Condition on Discharge: Stable Discharge Instructions DIET: Follow Instructions for: Heart Healthy Diet Activities you can perform: See Additionl Instruction Activities to Avoid: Strenuous Activity Other Activity Instructions: OOB with assist Follow up Referrals: Nephrology - [address] Vidal Neurosurgery - 2 Weeks with Alex Hall MD PCP Follow-up - [address] Eid New Medications: Metoprolol Tartrate (Lopressor) 100 Mg Tab 100 MG PO Q12HR for blood pressure/ heart rate, #60 TAB 0 Refills [Megestrol Liq] () 400 MG/10 ML SUSP 400 MG PO DAILY for appetite, #30 EACH 0 Refills Continued Medications: Atorvastatin (Atorvastatin) 20 Mg Tab 20 MG PO HS for Cholesterol Management, #30 TAB 0 Refills Losartan (Losartan) 50 Mg Tab 50 MG PO DAILY for Blood Pressure Management, #30 TAB 0 Refills Tamsulosin (Tamsulosin) 0.4 Mg Cap 0.4 MG PO HS for Manage Prostate Problems, #30 CAP 0 Refills Discontinued Medications: Allopurinol (Allopurinol) 100 Mg Tab 100 MG PO DAILY for Gout, #30 TAB 0 Refills Furosemide (Furosemide) 40 Mg Tab 40 MG PO DAILY, #30 TAB 0 Refills Metoprolol Succinate ER 24 HR (Metoprolol Succinate ER 24 HR) 100 Mg Tab 100 MG PO DAILY, #30 TAB 0 Refills Oxycodone-Acetaminophen (Oxycodone-Acetaminophen) 7.5-325 mg Tab 1 TAB PO Q4H PRN for pain, #15 TAB 0 Refills Warfarin (Coumadin) 3 Mg Tab 3 MG PO DAILY for Prevent Blood Clot, #30 TAB 0 Refills Additional Information per neurosurgery anthony to be removed in 10 days Patient examined. Assessment and plan formulated with Reva Mandujano PA-C. I agree with the above. Reva Mandujano May 30, 2017 09:36 Michael Rich DO Jun 04, 2017 23:42
[2017-05-30] MEDS: DOCUSATE SODIUM 50 MG/SENNA 8.6 MG TAB PO SCH ×2 (10:05→21:00)
[2017-05-30] MEDS: METOPROLOL TARTRATE 100 MG TAB PO SCH ×2 (10:05→21:24)
[2017-05-30] MEDS: ATORVASTATIN 20 MG TAB PO SCH (10:05)
[2017-05-30] MEDS: LOSARTAN 50 MG TAB PO SCH (10:05)
[2017-05-30] MEDS: MEGESTROL ACETATE SUSP 400 MG/10 ML CUP PO SCH (10:05)
[2017-05-30] MEDS: SODIUM CHLORIDE 0.9% FLUSH 10 ML FLUSH IV FLUSH SCH ×2 (10:06→21:24)
[2017-05-30] MEDS: POTASSIUM CHLORIDE 20 MEQ CONTROLLED RELEASE TAB PO SCH ×2 (10:06→14:50)
[2017-05-30] MEDS ORDERED: HOSP BED1 (12:56)
[2017-05-30] MEDS ORDERED: BARIATRIC ROLLA1 MIS (13:00)
--- NOTE | 2017-05-30 13:03 | HHI.FF ---
Face to Face Verification Diagnosis: (1) Subdural hygroma (2) Atrial fibrillation (3) CAD (coronary artery disease) (4) COPD (chronic obstructive pulmonary disease) Physical Therapy Order: Evaluate and Treat, Improve ambulation, Strength and gait training Home Health Nursing Order: Medical education Signs/symptoms of disease process CHF education Medication education-adverse effect Nursing assessment with vital signs I have seen patient Ced Moody on 05/30/17. My clinical findings support the need for the requested home health care services because: Ltd mobility - disease progression Deconditioned w/ increased weakness Med compliance is questionable Limited ability to care for self Need for psychosocial assistance I certify that my clinical findings support that this patient is homebound because: Impaired cognitive ability/safety Unsafe to leave home unassisted Need for psychosocial assistance Unable to use public transportation Michael Rich DO May 30, 2017 13:03
--- NOTE | 2017-05-30 13:47 | HHI.NPPN ---
Subjective General Problems: Anemia Renal Failure: Chronic, Acute, Stage III Interval History Creatinine is gradually increasing. Looks okay. Potential discharge today or in AM. (Laisha Licea) Review of Systems General Constitutional: Fatigue (Laisha Licea) Objective Data Data Vital Signs Date Time Temp Pulse Resp B/P (MAP) Pulse Ox O2 Delivery O2 Flow Rate FiO2 05/29/17 20:30 98.3 77 17 132/66 (88) 96 05/29/17 19:00 Room Air 1.00 21 05/29/17 16:00 98.2 80 18 141/70 (93) 97 (Laisha Licea) -: 05/27/17 0450 05/30/17 0718 Physical Exam General Appearance: Well Developed, Well Nourished, No Acute Distress (Laisha Licea) Eyes Eye Exam: Pupils Equal (Laisha Licea) Throat Throat Exam: Oral Mucosa [place] & Moist (Laisha Licea) Neck Neck Exam: Neck Supple (Laisha Licea) Pulmonary Resp Exam: Clear Bilaterally, Breath Sounds Equal (Laisha Licea) Cardiology CV Exam: Good Perfusion, Arrhythmia (Laisha Licea) Gastrointestinal/Abdomen GI Exam: Soft, Non-Tender (Laisha Licea) Musculoskeletal MS Exam: Joints Intact, Normal Gait (Laisha Licea) Integumentary Skin Exam: Warm, Dry Skin Remarks anthony left cranium (Laisha Licea) Extremeties Extremities Exam: Pedal Pulses Palpable, Trace Edema (Laisha Licea) Neurologic Neuro Exam: Alert, Awake, Oriented, Speech Clear, Moving All Extremities (Laisha Licea) Psychiatric Psych Exam: Appropriate Responses (Laisha Licea) Assessment/Plan Discussed Condition With: Patient Assessment Summary: PATO/Acute Renal Failure, Hypertension, CKD Stage III Problem List: (1) CKD (chronic kidney disease) stage 3, GFR 30-59 ml/min ICD Codes: N18.3 - Chronic kidney disease, stage 3 (moderate) Status: Chronic Plan: Creatinine continues to increase He is non oliguric No lower extremity edema We will follow in CKD clinic if discharged; appointment made Avoid nephrotoxic agents PO intake encouraged Advised to resume Lasix at home. (2) HTN (hypertension) ICD Codes: I10 - Essential (primary) hypertension Status: Chronic Plan: Continue present medications (3) Subdural hygroma ICD Codes: D18.1 - Lymphangioma, any site Status: Acute Plan: s/p craniotomy serial imaging, neurosurgery to manage (Laisha Licea) Plan patient was seen and examined. Renal function is stable. Replace potassium. Possible discharge. (Donny Vidal MD) Problem Qualifiers (1) HTN (hypertension): Qualified Codes: I10 - Essential (primary) hypertension Laisha Licea May 30, 2017 13:47 Donny Vidal MD May 30, 2017 14:38
--- NOTE | 2017-05-30 16:45 | HHI.FF ---
Face to Face Verification Diagnosis: (1) Appetite absent (2) Atrial fibrillation (3) Subdural hygroma Physical Therapy Order: Evaluate and Treat, Improve ambulation, Strength and gait training Occupational Therapy Order: Evaluate and Treat Home Health Nursing Order: Medical education Medication education-adverse effect Wound care and dressing changes Nursing assessment with vital signs Instructions: Richards out at approximately 10 days postoperative. Craniotomy 05/23/17 BMP in 3 days with results to PCP Dr. Eid I have seen patient Ced Moody on 05/30/17. My clinical findings support the need for the requested home health care services because: Ltd mobility - disease progression High risk of falls I certify that my clinical findings support that this patient is homebound because: Unsteady gait/balance Reva Mandujano May 30, 2017 16:45
--- NOTE | 2017-05-30 17:02 | HHI.PR ---
Subjective Remarks Patient sitting up in chair Patient feels stronger today Objective Vitals Vital Signs Date Time Temp Pulse Resp B/P (MAP) Pulse Ox O2 Delivery O2 Flow Rate FiO2 05/30/17 16:52 94 05/30/17 12:00 98.4 82 18 98/52 (67) 94 05/30/17 08:00 98.1 69 18 151/63 (92) 96 05/29/17 20:30 98.3 77 17 132/66 (88) 96 05/29/17 19:00 Room Air 1.00 21 Result Diagram: 05/27/17 0450 05/30/17 0718 Other Results Laboratory Tests Test 05/29/17 12:09 05/30/17 07:18 Blood Urea Nitrogen 19 MG/DL 19 MG/DL Creatinine 2.11 MG/DL 2.12 MG/DL Random Glucose 93 MG/DL 84 MG/DL Calcium Level 9.1 MG/DL 9.1 MG/DL Sodium Level 136 MEQ/L 137 MEQ/L Potassium Level 3.1 MEQ/L 3.2 MEQ/L Chloride Level 96 MEQ/L 95 MEQ/L Carbon Dioxide Level 31.1 MEQ/L 34.3 MEQ/L Anion Gap 9 MEQ/L 8 MEQ/L Estimat Glomerular Filtration Rate 37 ML/MIN 37 ML/MIN Albumin 2.4 GM/DL Phosphorus Level 2.4 MG/DL Magnesium Level 1.6 MG/DL Imaging Last Impressions Head CT 05/27/17 0000 Signed Impressions: Service Date/Time: Sunday, May 28, 2017 10:35 - CONCLUSION: Postoperative changes as above with persistent fluid, air and mass effect left hemisphere.. Da Byrnes MD FACR Knee X-Ray 05/22/17904 Signed Impressions: Service Date/Time: April 09:52 - CONCLUSION: 1. 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 2. No acute fracture or dislocation. Evangelista Holder MD Chest X-Ray 05/22/17904 Signed Impressions: Service Date/Time: April 09:52 - CONCLUSION: 1. Mild left lung base airspace disease, likely atelectasis. 2. Compensated cardiomegaly. Evangelista Holder MD Cervical Spine CT 05/22/17 0905 Signed Impressions: Service Date/Time: April 10:16 - CONCLUSION: 1. No acute bony fracture. 2. Diffuse primary bony degenerative changes throughout the cervical spine 3. Bilateral facet arthritis at multiple levels. 4. Focal central bulging at C4-5 and C6-7. Drew Jha MD Objective Remarks GENERAL: This is a 81 year old male, well-developed patient, in no apparent distress. CARDIOVASCULAR: Regular rate and rhythm RESPIRATORY: Clear to auscultation. Breath sounds equal bilaterally. GASTROINTESTINAL: Abdomen soft, non-tender, nondistended. Normal active bowel sounds MUSCULOSKELETAL: Extremities without clubbing, cyanosis, or edema. NEURO: Alert & Oriented x4 to person, place, time, situation. Moves all ext x4 Procedures Left craniotomy for subdural hemorrhage evacuation 05/23/[address] Hall A/P Problem List: (1) Subdural hygroma ICD Codes: D18.1 - Lymphangioma, any site Status: Acute Plan: Subdural hygroma - pt admitted with c/o lethargy - CT brain (05/22/17) large left hygroma with midline shift and mass effect - Pt underwent left craniotomy with evacuation of SDH (05/23/17) performed by Dr. Medley - PT - clinically mentation improved from admission - repeat CT head reveals: Postoperative changes as above with persistent fluid, air and mass effect left hemisphere - SCDs for DVT prophylaxis - discussed with Neurosurgery ok to DC, will need outpatient follow up with Dr. Hall - [place] home with [facility] Appetite absent - poor PO intake started prior to hospitalization - likely reflective of worsening disease states - continue megace - obtain calorie count - may need feeding tube if pt/family want continued aggressive care. Patient reports his appetite has improve some today and has been able to eat more today. Patient and do not want feeling tube HTN (hypertension) - stable - metoprolol, cozaar CKD (chronic kidney disease) stage 3, GFR 30-59 ml/min - Pt follows with Nephrology, Dr. Vidal - Cr 1.7 (05/22), 2.0 (05/28), 2.11 (05/29), 2.12 (05/30) Atrial fibrillation - metoprolol - coumadin reversed for craniotomy. Continue to hold Coumadin until cleared by neurosurgery to resume CAD (coronary artery disease) - metoprolol, lipitor DC home with [facility] in AM after walker and hospital bed delivered (2) Appetite absent ICD Codes: R63.0 - Anorexia Status: Acute (3) HTN (hypertension) ICD Codes: I10 - Essential (primary) hypertension Status: Chronic (4) CKD (chronic kidney disease) stage 3, GFR 30-59 ml/min ICD Codes: N18.3 - Chronic kidney disease, stage 3 (moderate) Status: Chronic (5) Atrial fibrillation ICD Codes: I48.91 - Unspecified atrial fibrillation Status: Chronic (6) CAD (coronary artery disease) ICD Codes: I25.10 - Atherosclerotic heart disease of [place] coronary artery without angina pectoris Status: Chronic (7) Hypokalemia ICD Codes: E87.6 - Hypokalemia Assessment and Plan Patient examined. Assessment and plan formulated with Reva Mandujano PA-C. I agree with the above. Problem Qualifiers (1) HTN (hypertension): Qualified Codes: I10 - Essential (primary) hypertension (2) Atrial fibrillation: Qualified Codes: I48.2 - Chronic atrial fibrillation (3) CAD (coronary artery disease): Qualified Codes: I25.10 - Atherosclerotic heart disease of [place] coronary artery without angina pectoris Reva Mandujano May 30, 2017 17:02 Michael Rich DO Jun 04, 2017 23:41
[2017-05-30] MEDS: oxyCODONE/ACETAMINOPHEN 7.5 MG/325 MG TAB PO PRN (21:24)
[2017-05-30] MEDS: CHLORHEXIDINE GLUCONATE 2 % 1 PACK (2 CLOTHS) TOP SCH (21:25)
[2017-05-31 00:15] VITALS: BP 125/62; PULSE 67; RESP 19; TEMP 98.8; O2SAT 96
[2017-05-31 05:00] VITALS: BP 120/69; PULSE 64; RESP 17; TEMP 98.3; O2SAT 98
[2017-05-31 08:00] VITALS: BP 165/84; PULSE 62; PULSE 70; RESP 18; TEMP 98.7; O2SAT 98
[2017-05-31] MEDS: DOCUSATE SODIUM 50 MG/SENNA 8.6 MG TAB PO SCH (09:08)
[2017-05-31] MEDS: METOPROLOL TARTRATE 100 MG TAB PO SCH (09:08)
[2017-05-31] MEDS: LOSARTAN 50 MG TAB PO SCH (09:08)
[2017-05-31] MEDS: MEGESTROL ACETATE SUSP 400 MG/10 ML CUP PO SCH (09:09)
[2017-05-31] MEDS: ATORVASTATIN 20 MG TAB PO SCH (09:09)
[2017-05-31] MEDS: SODIUM CHLORIDE 0.9% FLUSH 10 ML FLUSH IV FLUSH SCH (09:09)
[2017-05-31 09:30] VITALS: O2SAT 98
[2017-05-31] MEDS ORDERED: OXYC1TAB35 PO (11:44)
== END 2017-05-31 11:50 | disposition home health service (06) | DRG 26 ==
LOC: PHED 08:42 → PHEDA 11:11 → N03B 12:44 → N05B 05-27 17:45
PROVIDERS: ADMIT Internal Medicine Critical Care Medicine; ATTEND Hospitalist
PROC: 30233K1 Transfusion of Nonautologous Frozen Plasma into Peripheral Vein, Percutaneous Approach (ICD-10-PCS; 2017-05-22)
PROC: 00C40ZZ Extirpation of Matter from Intracranial Subdural Space, Open Approach (ICD-10-PCS; principal; 2017-05-23 08:23)
DX: I62.02 Nontraumatic subacute subdural hemorrhage (principal); N17.9 Acute kidney failure, unspecified; D68.32 Hemorrhagic disorder due to extrinsic circulating anticoagulants; I13.0 Hypertensive heart and chronic kidney disease with heart failure and stage 1 through stage 4 chronic kidney disease, or unspecified chronic kidney disease; I50.9 Heart failure, unspecified; N18.3 Chronic kidney disease, stage 3 (moderate); Z68.41 Body mass index [BMI] 40.0-44.9, adult; I48.2 Chronic atrial fibrillation; R63.0 Anorexia; I62.03 Nontraumatic chronic subdural hemorrhage; E87.6 Hypokalemia; I25.10 Atherosclerotic heart disease of native coronary artery without angina pectoris; M10.9 Gout, unspecified; R53.83 Other fatigue; R60.0 Localized edema; T45.515A Adverse effect of anticoagulants, initial encounter; R53.1 Weakness; R41.82 Altered mental status, unspecified; I25.2 Old myocardial infarction; E66.01 Morbid (severe) obesity due to excess calories; Z79.01 Long term (current) use of anticoagulants; Z86.718 Personal history of other venous thrombosis and embolism; Z87.891 Personal history of nicotine dependence; Z95.1 Presence of aortocoronary bypass graft; Z88.1 Allergy status to other antibiotic agents; Z88.0 Allergy status to penicillin; Z88.8 Allergy status to other drugs, medicaments and biological substances
CPT/HCPCS: 36430; 70450; 71010; 72125; 73564; 80048; 80053; 80069; 81001; 82948; 83735; 83880; 85007; 85025; 85027; 85610; 85730; 86850; 86900; 86901; 86927; 87086; 87641; 93005; 93306; 94150; 94640; 94667; 94668; C1713; C9132; J0360; J1580; J1940; J1953; J2060; J2150; J2270; J2370; J2405; J2710; J3010; J3370; J3430; J3475; J3480; J7030; J7050; J7120; P9017

== ENCOUNTER 2017-10-30 00:04 | Inpatient (IN) | payer MEDICARE ==
[2017-10-30] VITALS (20 sets, daily range): BP systolic 96–165; BP diastolic 52–91; PULSE 85–119; RESP 18–24; TEMP 97.8–98.6; O2SAT 95–100
[~2017-10-30] VITALS: Ht 188 cm; Wt 148.4 kg
[~2017-10-30 00:04] MED LIST changes: -ALBU0.08 NEB; -ALLO100T PO; +BARIATRIC ROLLA1 MIS; -COUM3TAB PO; +HOSP BED1; -IPRA0.02 NEB; -LACT10SO PO; +LOSA50TA PO; +METO-338 PO; -METO1TAB43 PO; +Megestrol Liq PO; -NEBULIZER1 MI1; -SENO8.6T5 PO
--- NOTE | 2017-10-30 01:02 | PD ---
HPI . LEG CELLULITIS Chief Complaint: Skin Problem Time Seen by Provider: 00:09 Travel History International Travel<30 days: No Contact w/Intl Traveler<30days: No Traveled to known affect area: No History of Present Illness HPI Patient is an 81-year-old male who is bound has severe lymphedema of his lower extremities bilateral he has a visiting wound care nurse in spite of treatment he is having redness swelling to his left knee which is getting progressively worse he just recently was started on an antibiotic by mouth for the last 2 days however it seems to continue to get worse painful tender red swelling of the left knee. He also has a blister that has been ruptured on his great toe on the right side and underneath the blister is excoriation of the dorsum skin 4 cm round popped blister painful. His daughter describes that his left knee is getting redder and feels unstable and he is unable to stand and bear his weight due to severe pain from the swelling. His feet look like chronic lymphedema with chronic cracking and weeping however there seems to be an acute cellulitis on top of it on the left side on the left knee lateral aspect. pAIN GETTING WORSE AND REDNESS WORSE INSPITE OF cIPRO po THEN SWITCHED TO CLINDAMYCIN PO NOW UNABLE TO TRANSFER OR WEIGHT BARE PFSH Past Medical History Hx Anticoagulant Therapy: Yes Anemia: Yes Arthritis: Yes Asthma: No Atrial Fibrillation: Yes Blood Disorders: No Anxiety: No Depression: No Heart Rhythm Problems: Yes (AFib) Cancer: No Cardiac Catheterization: Yes Cardiovascular Problems: Yes (A-fib, CABGx3, HTN, CAD) High Cholesterol: Yes Chemotherapy: No Chest Pain: Yes Congestive Heart Failure: Yes COPD: No Cerebrovascular Accident: Yes (x2) Coronary Artery Disease: Yes Diabetes: No Diminished Hearing: No Deep Vein Thrombosis: Yes (BOTH LEGS?) Endocrine: No Gastrointestinal Disorders: Yes GERD: Yes Glaucoma: No Gout: Yes Genitourinary: No Headaches: Yes Hepatitis: No Hiatal Hernia: Yes (surgery in 2002) Hypertension: Yes Immune Disorder: No Kidney Stones: No Musculoskeletal: Yes Neurologic: Yes Psychiatric: No Reproductive: No Respiratory: Yes Integumentary: Yes (Lymphedema) Migraines: No Myocardial Infarction: Yes Pneumonia: Yes (CHILDHOOD) Radiation Therapy: No Renal Failure: Yes (Last year acute renal failure) Seizures: No Sleep Apnea: Yes Thyroid Disease: No Tetanus Vaccination: < 5 Years Influenza Vaccination: Yes Past Surgical History Abdominal Surgery: Yes (Hiatal Hernia, 2002) AICD: No Arteriovenous Shunt: No Cardiac Surgery: Yes (Triple Bipass 2011) Coronary Artery Bypass Graft: Yes (x3 2011) Ear Surgery: No Endocrine Surgery: No Eye Surgery: No Genitourinary Surgery: No Gynecologic Surgery: No Insulin Pump: No Joint Replacement: No Oral Surgery: No Pacemaker: No Thoracic Surgery: No Other Surgery: Yes (UMBILICAL HERNIA 2002) Social History Alcohol Use: Yes (wine rarely) Tobacco Use: No (QUIT 14 years ago) Substance Use: No Allergies-Medications (Allergen,Severity, Reaction): Coded Allergies: azithromycin (Verified Allergy, Severe, UNKNOWN, 05/22/17) enalaprilat (Verified Allergy, Severe, FACIAL EDEMA, 05/22/17) penicillin G (Verified Allergy, Severe, ANAPHYLAXIS, 05/22/17) Reported Meds & Prescriptions Reported Meds & Active Scripts Active Bariatric Rollator/Extra (Device) 1 Mis Mis Ea .XX DIRECTED Hospital Bed - Electric 1 Ea Ea Ea .XX DIRECTED [Megestrol Liq] 400 MG/10 ML Susp 400 Mg PO DAILY Lopressor (Metoprolol Tartrate) 100 Mg Tab 100 Mg PO Q12HR Walker with Front Wheels (Device) 1 Mis Mis 1 Ea .ROUTE DIRECTED Reported Clindamycin (Clindamycin HCl) 300 Mg Cap 300 Mg PO TID Warfarin 3 Mg Tab 3 Mg PO DAILY Pantoprazole (Pantoprazole Sodium) 40 Mg Tab 40 Mg PO DAILY Tylenol-Codeine #3 (Acetaminophen-Codeine) 300-30 mg Tab 1-2 Tab PO Q6H PRN Xanax (Alprazolam) 0.5 Mg Tab 0.5 Mg PO Q8H PRN Furosemide 40 Mg Tab 40 Mg PO DAILY Losartan (Losartan Potassium) 50 Mg Tab 50 Mg PO DAILY Tamsulosin (Tamsulosin HCl) 0.4 Mg Cap 0.4 Mg PO HS Atorvastatin (Atorvastatin Calcium) 20 Mg Tab 20 Mg PO HS Review of Systems Except as stated in HPI: all other systems reviewed are Neg Musculoskeletal: Positive: Edema, Pain (Swelling cracking of the skin blistering and now cellulitis of the lower left) Physical Exam Narrative GENERAL: Morbidly obese with severe lymphedema of lower legs open SKIN: Warm and dry. HEAD: Atraumatic. Normocephalic. EYES: Pupils equal and round. No scleral icterus. No injection or drainage. ENT: No nasal bleeding or discharge. Mucous membranes pink and moist. NECK: Trachea midline. No JVD. CARDIOVASCULAR: Regular rate and rhythm. Midline surgical sternotomy scar well- healed with hyperpigmentation RESPIRATORY: No accessory muscle use. Clear to auscultation. Breath sounds equal bilaterally. GASTROINTESTINAL: Abdomen morbidly obese abdomen MUSCULOSKELETAL: Extremities lower extremities bilateral from the knees down have hyperpigmented cracking weeping blistering chronic lymphedema the right great toe has an excoriation where a blister has popped and there is raw skin exposed. And the left knee from the lateral aspect of the knee down to the mid calf red tender swelling cellulitic appearance NEUROLOGICAL: Awake and alert. No obvious cranial nerve deficits. Motor grossly within normal limits. Five out of 5 muscle strength in the arms and legs. Normal speech. PSYCHIATRIC: Appropriate mood and affect; insight and judgment normal. Data Data Last Documented VS Vital Signs Date Time Temp Pulse Resp B/P (MAP) Pulse Ox O2 Delivery O2 Flow Rate FiO2 10/30/17 00:14 98.4 87 20 125/52 (76) 96 Orders Orders Complete Blood Count With Diff (10/30/17 00:26) Comprehensive Metabolic Panel (10/30/17 00:26) Blood Culture (10/30/17 00:26) Lipase (10/30/17 00:26) Lactic Acid (10/30/17 00:26) Troponin I (10/30/17 00:26) Electrocardiogram (10/30/17 ) Vancomycin Inj (Vancomycin Inj) (10/30/17 01:45) Aspirin Chew (Aspirin Chew) (10/30/17 01:45) Admit Order (Ed Use Only) (10/30/17 02:10) Labs Laboratory Tests Test 10/30/17 00:30 White Blood Count 13.0 TH/MM3 Red Blood Count 2.91 MIL/MM3 Hemoglobin 10.0 GM/DL Hematocrit 30.3 % Mean Corpuscular Volume 104.2 FL Mean Corpuscular Hemoglobin 34.5 PG Mean Corpuscular Hemoglobin Concent 33.1 % Red Cell Distribution Width 15.8 % Platelet Count 155 TH/MM3 Mean Platelet Volume 8.3 FL Neutrophils (%) (Auto) 94.1 % Lymphocytes (%) (Auto) 3.0 % Monocytes (%) (Auto) 2.6 % Eosinophils (%) (Auto) 0.2 % Basophils (%) (Auto) 0.1 % Neutrophils # (Auto) 12.2 TH/MM3 Lymphocytes # (Auto) 0.4 TH/MM3 Monocytes # (Auto) 0.3 TH/MM3 Eosinophils # (Auto) 0.0 TH/MM3 Basophils # (Auto) 0.0 TH/MM3 CBC Comment AUTO DIFF Differential Total Cells Counted 100 Neutrophils % (Manual) 66 % Band Neutrophils % 31 % Lymphocytes % 3 % Neutrophils # (Manual) 12.6 TH/MM3 Differential Comment FINAL DIFF MANUAL Toxic Granulation 1+ Toxic Vacuolation PRESENT Dohle Bodies PRESENT Platelet Estimate NORMAL Platelet Morphology Comment NORMAL Red Cell Morphology Comment NORMAL Blood Urea Nitrogen 47 MG/DL Creatinine 2.54 MG/DL Random Glucose 124 MG/DL Total Protein 6.5 GM/DL Albumin 2.7 GM/DL Calcium Level 8.5 MG/DL Alkaline Phosphatase 80 U/L Aspartate Amino Transf (AST/SGOT) 7 U/L Alanine Aminotransferase (ALT/SGPT) 11 U/L Total Bilirubin 2.6 MG/DL Sodium Level 138 MEQ/L Potassium Level 4.5 MEQ/L Chloride Level 100 MEQ/L Carbon Dioxide Level 29.2 MEQ/L Anion Gap 9 MEQ/L Estimat Glomerular Filtration Rate 30 ML/MIN Lactic Acid Level 1.8 mmol/L Troponin I 1.01 NG/ML B-Type Natriuretic Peptide 757 PG/ML Lipase 76 U/L [facility] Medical Decision Making Medical Screen Exam Complete: Yes Emergency Medical Condition: Yes Medical Record Reviewed: Yes Interpretation(s) EKG is A. fib at a rate of [address] elevations or depressions Differential Diagnosis Chronic venous peripheral vascular disease versus chronic lymphedema with third spacing skin cracking cellulitis versus pressure ulcers versus valvular incompetence Narrative Course Patient's troponin is 1.01 EKG is A. fib patient has obvious cellulitis of his left knee as well as chronic lymphedema with cracking and weeping and blistering of his lower extremities will need to be admitted for wound care as well as cellulitis treatment as well as following his troponin and evaluation of his cardiac risks for ACS versus poor renal clearance of troponin due to morbid obesity and renal function creatinine is 2.5 Diagnosis Primary Impression: Chronic acquired lymphedema Additional Impressions: Elevated troponin Failure of outpatient treatment Cellulitis of both lower extremities Admitting Information Admitting Physician Requests: Admit Kyle,Jeremiah MD Oct 30, 2017 01:02
[2017-10-30 01:05] LABS: ALBUMIN 2.7 GM/DL (3.4-5.0); ALT (GPT) 11 U/L (12-78); AST (GOT) 7 U/L (15-37); AUTOMATED NEUTROPHIL # 12.2 TH/MM3 (1.8-7.7); BASOPHIL % 0.1 % (0.0-2.0); BICARBONATE 29.2 MEQ/L (21.0-32.0); BLOOD UREA NITROGEN 47 MG/DL (7-18); CALCIUM 8.5 MG/DL (8.5-10.1); CHLORIDE 100 MEQ/L (98-107); CREATININE 2.54 MG/DL (0.60-1.30); EOSINOPHIL % 0.2 % (0.0-4.0); GLOMERULAR FILTRATION RATE 30 ML/MIN (>89); GLUCOSE,RANDOM 124 MG/DL (74-106); HEMATOCRIT 30.3 % (39.0-51.0); LYMPHOCYTE # 0.4 TH/MM3 (1.0-4.8); MEAN CELL VOLUME 104.2 FL (80.0-100.0); MEAN CORPUSCULAR HEMOGLOBIN 34.5 PG (27.0-34.0); MEAN CORPUSCULAR HGB CONC 33.1 % (32.0-36.0); MEAN PLATELET VOLUME 8.3 FL (7.0-11.0); MONO % 2.6 % (0.0-8.0); MONOCYTE # 0.3 TH/MM3 (0-0.9); NEUT % 94.1 % (16.0-70.0); PLATELET COUNT 155 TH/MM3 (150-450); RED BLOOD COUNT 2.91 MIL/MM3 (4.50-5.90); RED CELL DISTRIBUTION WIDTH 15.8 % (11.6-17.2); SODIUM (NA) 138 MEQ/L (136-145)
[2017-10-30 01:09] LABS: ALKALINE PHOSPHATASE 80 U/L (45-117); TOTAL BILIRUBIN ADULT 2.6 MG/DL (0.2-1.0); TOTAL PROTEIN 6.5 GM/DL (6.4-8.2)
[2017-10-30 01:19] LABS: TROPONIN I 1.01 NG/ML (0.02-0.05)
[2017-10-30] MEDS ORDERED: TYLETAB34 PO (01:24)
[2017-10-30] MEDS ORDERED: PANT40TA3 PO (01:24)
[2017-10-30] MEDS ORDERED: ALPR.5 PO (01:24)
[2017-10-30] MEDS ORDERED: FURO40TA PO (01:24)
[2017-10-30] MEDS ORDERED: WARF-58 PO (01:24)
[2017-10-30] MEDS ORDERED: CLIN300C5 PO (01:27)
[2017-10-30 01:36] LABS: BANDS 31 % (0-6); LYMPHOCYTES 3 % (9-44); NEUTROPHIL # MANUAL DIFF 12.6 TH/MM3 (1.8-7.7); POLYS (SEG NEUTROPHILS) 66 % (16-70)
[2017-10-30 01:39] LABS: DOHLE BODIES PRESENT (NONE SEEN); TOXIC GRANULATION 1+ (NORMAL); TOXIC VACUOLATION PRESENT (NONE SEEN)
[2017-10-30] MEDS ORDERED: VANCOMYCIN INJ 1,000 MG in SODIUM CHLOR 0.9% 250 ML INJ 250 ML IV ONE (01:45)
[2017-10-30] MEDS ORDERED: ASPIRIN 81 MG CHEW TAB CHEW ONE (01:45)
[2017-10-30] MEDS ORDERED: Vancomycin Consult Pharmacy 1 EA OTHER SCH (03:45)
--- NOTE | 2017-10-30 04:15 | RADRPT ---
EXAM DATE: 10/30/2017 4:09 AM EDT AGE/SEX: 81 years / Male INDICATIONS: Shortness of breath and chest pain. CLINICAL DATA: This is the patient's initial encounter. Patient reports that signs and symptoms have been present for 1 day and indicates a pain score of 5/10. MEDICAL/SURGICAL HISTORY: . Myocardial infarction. Hypertension. CVA. Anticoagulant therapy. At rial fibrillation. . CABG. Left carotid endarterectomy. Cardiac catheterization. Umbilical hernia r epair. Vasectomy. Orthopedic surgery, right knee and hand. COMPARISON: No prior exams available for comparison. FINDINGS: Postoperative median sternotomy and CABG. Cardiomegaly. Mild basilar atelectasis. No effusion or arch . No focal consolidation. CONCLUSION: Cardiomegaly. Postoperative median sternotomy. No focal infiltrate or significant effusion. Electronically signed by: Jareth Moreno MD 10/30/2017 4:13 AM EDT
[2017-10-30] MEDS ORDERED: VANCOMYCIN 1,500 MG/NS 500 ML IV ONE ×2 (05:00)
[2017-10-30 08:12] LABS: INTERNATIONAL NORMALIZED RATIO 1.6 RATIO; PROTHROMBIN TIME - PATIENT 16.3 SEC (9.8-11.6)
--- NOTE | 2017-10-30 09:52 | HHI.HP ---
HPI Service [facility] Hospitalists Primary Care Physician Vipul Eid MD Admission Diagnosis elevated trop afib Chief Complaint: worsening left knee pain and erythema Travel History International Travel<30 Days: No Contact w/Intl Traveler <30 Da: No Traveled to Known Affected Are: No History of Present Illness Patient patient is a 81-year-old male with multiple medical problems including coronary artery disease, status post CABG, atrial fibrillation, CHF, chronic kidney disease stage III, chronic lower extremity edema. Patient has chronic lower extremity lymphedema. Pt was interviewed at the bedside. I also spoke with his by phone which helped with some of the details. However, exact time course of pt's worsening LE edema and right leg cellulitis NOT completely clear. Pt reports worsening weakness in his knees over the last few months. Pt reports that a few months ago he was able to ambulate short distances in his home using a walker, but he can NO longer ambulate with the walker. Pt was able to transfer independency to his wheelchair, but more recently his LE weakness has progressed to the point where he has NOT been able to independently transfer for the last few days. Pt reports that [facility] comes to his house to provide lymphedema wraps on Mondays and Fridays. Pt is seen by [facility]. He was recently started on clindamycin. He completed only 2 doses. Yesterday pt was NOT able to transfer out of his bed even with the help of his and son. Pt reports that he has had increased pain and swelling to his left leg, particularly laterally at the left thigh and anteriorly below the left knee. Pt reports that he follows with Sports Medicine, Dr. Polo. Pt reports that earlier in the year he had a steroid injection to his knee which initially helped. Pt had kenalog injection of both knees (06/25/17) with some relief to his knee pain. Pt had kenalog injection of both knees (09/26/17) which pt reports provided some relief. Pt subsequently had right knee Synvisc injection (10/06/17) which pt reports did NOT improve his symptoms. Patient also complains of a blister at his right great toe which has ruptured revealing excoriated skin at the dorsal aspect of the right great toe which the patient characterizes as painful. Pt will be admitted to [facility] for further evaluation and treatment. Review of Systems Constitutional: DENIES: Diaphoretic episodes, Fatigue, Fever, Weight gain, Weight loss, Chills, Dizziness, Change in appetite, Night Sweats Endocrine: DENIES: Heat/cold intolerance, Polydipsia, Polyuria, Polyphagia Eyes: DENIES: Blurred vision, Diplopia, Eye inflammation, Eye pain, Vision loss , Photosensitivity, Double Vision Ears, nose, mouth, throat: DENIES: Tinnitus, Hearing loss, Vertigo, Nasal discharge, Oral lesions, Throat pain, Hoarseness, Ear Pain, Running Nose, Epistaxis, Sinus Pain, Toothache, Odynophagia Respiratory: DENIES: Apneas, Cough, Snoring, Wheezing, Hemoptysis, Sputum production, Shortness of breath Cardiovascular: DENIES: Chest pain, Palpitations, Syncope, Dyspnea on Exertion , PND, Lower Extremity Edema, Orthopnea, Claudication Gastrointestinal: DENIES: Abdominal pain, Black stools, Bloody stools, BRB per rectum, Constipation, Diarrhea, GERD, Nausea, Reflux, Vomiting, Difficulty Swallowing, Anorexia Genitourinary: DENIES: Urinary frequency, Urinary incontinence, Urgency, Hematuria, Dysuria, Nocturia Musculoskeletal: COMPLAINS OF: Joint pain, Stiffness, Joint Swelling, DENIES: Muscle aches, Back pain, Neck pain Integumentary: DENIES: Abnormal pigmentation, Nail changes, Pruritus, Rash Hematologic/lymphatic: COMPLAINS OF: Lymphadenopathy, DENIES: Bruising Immunologic/allergic: DENIES: Eczema, Urticaria Neurologic: DENIES: Abnormal gait, Headache, Localized weakness, Paresthesias, Seizures, Speech Problems, Tremor, Poor Balance Psychiatric: DENIES: Anxiety, Confusion, Mood changes, Depression, Hallucinations, Agitation, Suicidal Ideation, Homicidal Ideation, Delusions, History of Bipolar, History of Schizophrenia Past Family Social History Past Medical History 1) HTN 2) cad. 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 Patient required left craniotomy for evacuation of subdural hemorrhage performed 05/23/[address] Alex Hall. Past Surgical History 1) amputation of ischemic toes 2) umbilical hernia repair 3) left craniotomy for evacuation of subdural hemorrhage performed 05/23/[address] Alex Hall. Reported Medications Reported Meds & Active Scripts Active Bariatric Rollator/Extra (Device) 1 Mis Mis Ea .XX DIRECTED Hospital Bed - Electric 1 Ea Ea Ea .XX DIRECTED [Megestrol Liq] 400 MG/10 ML Susp 400 Mg PO DAILY Lopressor (Metoprolol Tartrate) 100 Mg Tab 100 Mg PO Q12HR Walker with Front Wheels (Device) 1 Mis Mis 1 Ea .ROUTE DIRECTED Reported Clindamycin (Clindamycin HCl) 300 Mg Cap 300 Mg PO TID Warfarin 3 Mg Tab 3 Mg PO DAILY Pantoprazole (Pantoprazole Sodium) 40 Mg Tab 40 Mg PO DAILY Tylenol-Codeine #3 (Acetaminophen-Codeine) 300-30 mg Tab 1-2 Tab PO Q6H PRN Xanax (Alprazolam) 0.5 Mg Tab 0.5 Mg PO Q8H PRN Furosemide 40 Mg Tab 40 Mg PO DAILY Losartan (Losartan Potassium) 50 Mg Tab 50 Mg PO DAILY Tamsulosin (Tamsulosin HCl) 0.4 Mg Cap 0.4 Mg PO HS Atorvastatin (Atorvastatin Calcium) 20 Mg Tab 20 Mg PO HS Allergies: Coded Allergies: azithromycin (Verified Allergy, Severe, UNKNOWN, 05/22/17) enalaprilat (Verified Allergy, Severe, FACIAL EDEMA, 05/22/17) penicillin G (Verified Allergy, Severe, ANAPHYLAXIS, 05/22/17) Family History Noncontributory Social History - , lives with - Daughter lives locally - No tobacco use - No alcohol use - No illicit street drugs Physical Exam Vital Signs Vital Signs Date Time Temp Pulse Resp B/P (MAP) Pulse Ox O2 Delivery O2 Flow Rate FiO2 10/30/17 08:00 98.1 107 24 136/77 (96) 100 Room Air 10/30/17 06:06 98.2 86 20 127/60 (82) 97 Room Air 10/30/17 03:00 98.2 89 20 128/55 (79) 98 Room Air 10/30/17 00:14 98.4 87 20 125/52 (76) 96 Physical Exam GENERAL: Obese, This is a well-nourished, well-developed patient, in no apparent distress. SKIN: No rashes, ecchymoses or lesions. Cool and dry. HEAD: Atraumatic. Normocephalic. No temporal or scalp tenderness. EYES: Pupils equal round and reactive. Extraocular motions intact. No scleral icterus. No injection or drainage. ENT: Nose without bleeding, purulent drainage or septal hematoma. Throat without erythema, tonsillar hypertrophy or exudate. Uvula midline. Airway patent. NECK: Trachea midline. No JVD or lymphadenopathy. Supple, nontender, no meningeal signs. CARDIOVASCULAR: Regular rate and rhythm without murmurs, gallops, or rubs. RESPIRATORY: Clear to auscultation. Breath sounds equal bilaterally. No wheezes , rales, or rhonchi. GASTROINTESTINAL: Abdomen soft, non-tender, nondistended. No hepato-splenomegaly , or palpable masses. No guarding. MUSCULOSKELETAL: b/l LE edema more worse from when I saw Mr. Moody May 2017. Pt is darkly pigmented, but erythema is noted below left knee. Pt has b/l changes of chronic lymphedema. Pt's Left LE is blistered anteriorly below the level of the knee. Pt's left leg is painful on palpation below the level of the knee anteriorly and at the lateral aspect of the left thigh. NEUROLOGICAL: Awake and alert. Cranial nerves II through XII intact. Motor and sensory grossly within normal limits. Five out of 5 muscle strength in all muscle groups. Normal speech. Laboratory Laboratory Tests Test 10/30/17 00:30 10/30/17 04:10 10/30/17 07:15 White Blood Count 13.0 Red Blood Count 2.91 Hemoglobin 10.0 Hematocrit 30.3 Mean Corpuscular Volume 104.2 Mean Corpuscular Hemoglobin 34.5 Mean Corpuscular Hemoglobin Concent 33.1 Red Cell Distribution Width 15.8 Platelet Count 155 Mean Platelet Volume 8.3 Neutrophils (%) (Auto) 94.1 Lymphocytes (%) (Auto) 3.0 Monocytes (%) (Auto) 2.6 Eosinophils (%) (Auto) 0.2 Basophils (%) (Auto) 0.1 Neutrophils # (Auto) 12.2 Lymphocytes # (Auto) 0.4 Monocytes # (Auto) 0.3 Eosinophils # (Auto) 0.0 Basophils # (Auto) 0.0 CBC Comment AUTO DIFF Differential Total Cells Counted 100 Neutrophils % (Manual) 66 Band Neutrophils % 31 Lymphocytes % 3 Neutrophils # (Manual) 12.6 Differential Comment FINAL DIFF MANUAL Toxic Granulation 1+ Toxic Vacuolation PRESENT Dohle Bodies PRESENT Platelet Estimate NORMAL Platelet Morphology Comment NORMAL Red Cell Morphology Comment NORMAL Blood Urea Nitrogen 47 Creatinine 2.54 Random Glucose 124 Total Protein 6.5 Albumin 2.7 Calcium Level 8.5 Alkaline Phosphatase 80 Aspartate Amino Transf (AST/SGOT) 7 Alanine Aminotransferase (ALT/SGPT) 11 Total Bilirubin 2.6 Sodium Level 138 Potassium Level 4.5 Chloride Level 100 Carbon Dioxide Level 29.2 Anion Gap 9 Estimat Glomerular Filtration Rate 30 Lactic Acid Level 1.8 Troponin I 1.01 0.95 0.99 B-Type Natriuretic Peptide 757 Lipase 76 Prothrombin Time 16.3 Prothromb Time International Ratio 1.6 Date/Time Source Procedure Growth Status 10/30/17 00:30 Blood Peripheral Aerobic Blood Culture Pending Received 10/30/17 00:30 Blood Peripheral Anaerobic Blood Culture Pending Received Result Diagram: 10/30/17 0030 10/30/17 0030 Imaging Last Impressions Chest X-Ray 10/30/17 0000 Signed Impressions: CONCLUSION: Cardiomegaly. Postoperative median sternotomy. No focal infiltrate or significa nt effusion. Caprini VTE Risk Assessment Caprini VTE Risk Assessment: Mod/High Risk (score >= 2) Caprini Risk Assessment Model Point Value = 1 Point Value = 2 Point Value = 3 Point Value = 5 Age 41-60 Minor surgery BMI > 25 kg/m2 Swollen legs Varicose veins or History of unexplained or recurrent spontaneous Oral contraceptives or hormone replacement Sepsis (< 1 month) Serious lung disease, including pneumonia (< 1 month) Abnormal pulmonary function Acute myocardial infarction Congestive heart failure (< 1 month) History of inflammatory bowel disease Medical patient at bed rest Age 61-74 Arthroscopic surgery Major open surgery (> 45 min) Laparoscopic surgery (> 45 min) Malignancy Confined to bed (> 72 hours) Immobilizing plaster cast Central venous access Age >= 75 History of VTE Family history of VTE Factor V Leiden Prothrombin [id number] Lupus anticoagulant Anticardiolipin antibodies Elevated serum homocysteine Heparin-induced thrombocytopenia Other congenital or acquired thrombophilia Stroke (< 1 month) Elective arthroplasty Hip, pelvis, or leg fracture Acute spinal cord injury (< 1 month) Prophylaxis Regimen Total Risk Factor Score Risk Level Prophylaxis Regimen 0-1 Low Early ambulation 2 Moderate Order ONE of the following: *Sequential Compression Device (SCD) *Heparin 5000 units SQ BID 3-4 Higher Order ONE of the following medications: *Heparin 5000 units SQ TID *Enoxaparin/Lovenox 40 mg SQ daily (WT < 150 kg, CrCl > 30 mL/min) *Enoxaparin/Lovenox 30 mg SQ daily (WT < 150 kg, CrCl > 10-29 mL/min) *Enoxaparin/Lovenox 30 mg SQ BID (WT < 150 kg, CrCl > 30 mL/min) AND/OR *Sequential Compression Device (SCD) 5 or more Highest Order ONE of the following medications: *Heparin 5000 units SQ TID (Preferred with Epidurals) *Enoxaparin/Lovenox 40 mg SQ daily (WT < 150 kg, CrCl > 30 mL/min) *Enoxaparin/Lovenox 30 mg SQ daily (WT < 150 kg, CrCl > 10-29 mL/min) *Enoxaparin/Lovenox 30 mg SQ BID (WT < 150 kg, CrCl > 30 mL/min) AND *Sequential Compression Device (SCD) Assessment and Plan Problem List: (1) Cellulitis of both lower extremities ICD Codes: L03.115 - Cellulitis of right lower limb; L03.116 - Cellulitis of left lower limb Status: Acute Plan: Patient patient is a 81-year-old male with multiple medical problems including coronary artery disease, status post CABG, atrial fibrillation, CHF, chronic kidney disease stage III, chronic lower extremity edema. Patient has chronic lower extremity lymphedema. Pt was interviewed at the bedside. I also spoke with his by phone which helped with some of the details. However, exact time course of pt's worsening LE edema and right leg cellulitis NOT completely clear. Pt reports worsening weakness in his knees over the last few months. Pt reports that a few months ago he was able to ambulate short distances in his home using a walker, but he can NO longer ambulate with the walker. Pt was able to transfer independency to his wheelchair, but more recently his LE weakness has progressed to the point where he has NOT been able to independently transfer for the last few days. Pt reports that [facility] comes to his house to provide lymphedema wraps on Mondays and Fridays. Pt is seen by [facility]. He was recently started on clindamycin. He completed only 2 doses. Yesterday pt was NOT able to transfer out of his bed even with the help of his and son. Pt reports that he has had increased pain and swelling to his left leg, particularly laterally at the left thigh and anteriorly below the left knee. Pt reports that he follows with Sports Medicine, Dr. Polo. Pt reports that earlier in the year he had a steroid injection to his knee which initially helped. Pt had kenalog injection of both knees (06/25/17) with some relief to his knee pain. Pt had kenalog injection of both knees (09/26/17) which pt reports provided some relief. Pt subsequently had right knee Synvisc injection (10/06/17) which pt reports did NOT improve his symptoms. Patient also complains of a blister at his right great toe which has ruptured revealing excoriated skin at the dorsal aspect of the right great toe which the patient characterizes as painful. - Pt received IV Vancomycin in the ER - Blood Cx (10/30) --> pending - LLE is erythematous at the lateral thigh and below the right knee which can be appreciated even with pt's dark complexion - obtain soft tissue US of pt's legs, r/o abscess - obtain b/l LE venous US to r/o DVT. - Pt's INR was subtherapeutic 1.6 (10/30) upon admission. - obtain ID consultation - obtain Nephrology Consultation. Pt has CKD and worsening renal function has been problematic on prior admissions. - DVT prophylaxis with coumadin/heparin - PT - supportive care - wound care (2) Chronic acquired lymphedema ICD Codes: I89.0 - Lymphedema, not elsewhere classified Status: Acute Plan: - see above (3) Atrial fibrillation ICD Codes: I48.91 - Unspecified atrial fibrillation Status: Chronic Plan: - INR 1.6 (10/30/17) - continue metoprolol 100mg BID - continue coumadin 3mg hs - repeat INR in AM - heparin until INR is therapeutic (4) CKD (chronic kidney disease) stage 3, GFR 30-59 ml/min ICD Codes: N18.3 - Chronic kidney disease, stage 3 (moderate) Status: Chronic Plan: - observe - repeat BMP in AM (5) HTN (hypertension) ICD Codes: I10 - Essential (primary) hypertension Status: Chronic Plan: - metoprolol, cozaar (6) CAD (coronary artery disease) ICD Codes: I25.10 - Atherosclerotic heart disease of [place] coronary artery without angina pectoris Status: Chronic Plan: - metoprolol, lipitor Physician Certification 2 Midnight Certification Type: Admission for Inpatient Services Order for Inpatient Services The services are ordered in accordance with Medicare regulations or non- Medicare payer requirements, as applicable. In the case of services not specified as inpatient-only, they are appropriately provided as inpatient services in accordance with the 2-midnight benchmark. Estimated LOS (days): 3 3 days is the estimated time the patient will need to remain in the hospital, assuming treatment plan goals are met and no additional complications. Post-Hospital Plan: Not yet determined Problem Qualifiers (1) Atrial fibrillation: Qualified Codes: I48.2 - Chronic atrial fibrillation (2) HTN (hypertension): Qualified Codes: I10 - Essential (primary) hypertension (3) CAD (coronary artery disease): Qualified Codes: I25.10 - Atherosclerotic heart disease of [place] coronary artery without angina pectoris Michael Rich DO Oct 30, 2017 09:51
[2017-10-30] MEDS: FUROSEMIDE 40 MG TAB PO SCH (12:28)
[2017-10-30] MEDS: METOPROLOL TARTRATE 100 MG TAB PO SCH ×2 (12:28→21:53)
[2017-10-30] MEDS: PANTOPRAZOLE SOD 40 MG DELAYED RELEASE TAB PO SCH (12:28)
[2017-10-30] MEDS: ACETAMINOPHEN/HYDROcodone 325 MG/7.5 MG TAB PO PRN ×2 (15:24→21:55)
[2017-10-30] MEDS: HEPARIN SODIUM - SQ 10,000 UNITS/ML VIAL SQ SCH ×2 (15:24→21:53)
[2017-10-30] MEDS: WARFARIN SOD 3 MG TAB PO SCH (15:24)
--- NOTE | 2017-10-30 15:36 | EKG ---
Date Performed: 10/29/2017 Time Performed: 23:20:09 PTAGE: 81 years EKG: ATRIAL FIBRILLATION NONSPECIFIC ST & T-WAVE ABNORMALITY Since previous tracing, no signific ant change noted ABNORMAL RHYTHM ECG PREVIOUS TRACING : 05/22/2017 09.14 DOCTOR: Analilia Montoya Interpretating Date/Time 10/30/2017 15:34:04
--- NOTE | 2017-10-30 16:45 | PD.CONS ---
HPI Service Nephrology Consult Requested By Reason for Consult PATO on CKD Primary Care Physician Vipul Eid MD History of Present Illness This is an 81 y/o male brought in by family for progressive lower extremity weakness, worsening lower extremity pain and edema. He has a hx of CKD 3, baseline creatinine 1.6-1.7. He did require dialysis for several months last year. Other PMH of HTN, CAD s/p CABG, obesity, SUKUMAR, and lymphedema. He had home health care arranged to assist with lymphedema wraps. He has had erythema and blisters to lower extremities for several days to one week, has been unable to stand or transfer even with max assist of family at home. We were consulted today to assist with renal function. His creatinine is 2.54 today. A Rice was placed and he is making urine. Today he is tachycardic, feels febrile and endorses fever at home. Multiple family members are at the bedside, questions were answered. He is a full code. (Laisha Licea) Review of Systems Constitutional: COMPLAINS OF: Fatigue, DENIES: Weight gain Respiratory: DENIES: Shortness of breath Cardiovascular: COMPLAINS OF: Lower Extremity Edema, DENIES: Chest pain Gastrointestinal: DENIES: Abdominal pain Neurologic: COMPLAINS OF: Localized weakness, Poor Balance (Laisha Licea) Past Family Social History Allergies: Coded Allergies: azithromycin (Verified Allergy, Severe, UNKNOWN, 05/22/17) enalaprilat (Verified Allergy, Severe, FACIAL EDEMA, 05/22/17) penicillin G (Verified Allergy, Severe, ANAPHYLAXIS, 05/22/17) Past Medical History CKD 3, baseline creatinine 1.6-1.7 CAD hx of CABG x 3 A fib CHF Lymphedema Obesity SUKUMAR CVA Ischemic toes, embolic disease, s/p amputation DVT subdural hygroma Past Surgical History Hernia toe amputation craniotomy Reported Medications Bariatric Rollator/Extra (Device) 1 Mis Mis Ea .XX DIRECTED Hospital Bed - Electric 1 Ea Ea Ea .XX DIRECTED [Megestrol Liq] 400 MG/10 ML Susp 400 Mg PO DAILY Lopressor (Metoprolol Tartrate) 100 Mg Tab 100 Mg PO Q12HR Walker with Front Wheels (Device) 1 Mis Mis 1 Ea .ROUTE DIRECTED Clindamycin (Clindamycin HCl) 300 Mg Cap 300 Mg PO TID Warfarin 3 Mg Tab 3 Mg PO DAILY Pantoprazole (Pantoprazole Sodium) 40 Mg Tab 40 Mg PO DAILY Tylenol-Codeine #3 (Acetaminophen-Codeine) 300-30 mg Tab 1-2 Tab PO Q6H PRN Xanax (Alprazolam) 0.5 Mg Tab 0.5 Mg PO Q8H PRN Furosemide 40 Mg Tab 40 Mg PO DAILY Losartan (Losartan Potassium) 50 Mg Tab 50 Mg PO DAILY Tamsulosin (Tamsulosin HCl) 0.4 Mg Cap 0.4 Mg PO HS Atorvastatin (Atorvastatin Calcium) 20 Mg Tab 20 Mg PO HS Active Ordered Medications Current Medications Medications (Trade) Dose Ordered Sig/Deni Route Start Time Stop Time Status Last Admin Pharmacy Profile Note 0 ml @ 0 mls/hr UNSCH OTHER 10/30/17 03:45 (Xanax) 0.5 mg Q8H PRN PO 10/30/17 12:15 (Lipitor) 20 mg HS PO 10/30/17 21:00 (Lasix) 40 mg DAILY PO 10/30/17 12:15 10/30/17 12:28 (Cozaar) 50 mg DAILY PO 10/31/17 09:00 (Lopressor) 100 mg Q12HR PO 10/30/17 12:15 10/30/17 12:28 (Protonix) 40 mg DAILY PO 10/30/17 12:15 10/30/17 12:28 (Flomax) 0.4 mg HS PO 10/30/17 21:00 (Coumadin) 3 mg DAILY@1600 PO 10/30/17 16:00 10/30/17 15:24 (Heparin Inj) 5,000 units Q8HR SQ 10/30/17 14:00 10/30/17 15:24 ([place] 7.5-325 Mg) 1 tab Q6H PRN PO 10/30/17 14:45 10/30/17 15:24 Family History Non contributory Social History Former smoker Needs assistance full code retired (Laisha Licea) Physical Exam Vital Signs Vital Signs Date Time Temp Pulse Resp B/P (MAP) Pulse Ox O2 Delivery O2 Flow Rate FiO2 10/30/17 16:10 18 10/30/17 16:01 96 10/30/17 15:09 119 10/30/17 15:09 97.8 100 18 145/81 (102) 98 10/30/17 14:01 106 10/30/17 13:09 106 10/30/17 12:01 118 10/30/17 11:34 96 10/30/17 11:34 98.3 110 18 165/91 (115) 95 10/30/17 10:38 117 10/30/17 10:38 98.3 118 20 157/60 (92) 99 10/30/17 09:54 10/30/17 08:00 98.1 107 24 136/77 (96) 100 Room Air 10/30/17 06:06 98.2 86 20 127/60 (82) 97 Room Air 10/30/17 03:00 98.2 89 20 128/55 (79) 98 Room Air 10/30/17 00:14 98.4 87 20 125/52 (76) 96 Physical Exam male, awake alert and oriented, lying supine in bed No neuro deficit detected S1/S2, tachycardic, irregular, no murmurs Lungs clear Obese, soft abdomen Ext 3+ edema, multiple blisters noted on left leg, right great toe with open blister Laboratory Laboratory Tests Test 10/30/17 00:30 10/30/17 04:10 10/30/17 07:15 White Blood Count 13.0 Red Blood Count 2.91 Hemoglobin 10.0 Hematocrit 30.3 Mean Corpuscular Volume 104.2 Mean Corpuscular Hemoglobin 34.5 Mean Corpuscular Hemoglobin Concent 33.1 Red Cell Distribution Width 15.8 Platelet Count 155 Mean Platelet Volume 8.3 Neutrophils (%) (Auto) 94.1 Lymphocytes (%) (Auto) 3.0 Monocytes (%) (Auto) 2.6 Eosinophils (%) (Auto) 0.2 Basophils (%) (Auto) 0.1 Neutrophils # (Auto) 12.2 Lymphocytes # (Auto) 0.4 Monocytes # (Auto) 0.3 Eosinophils # (Auto) 0.0 Basophils # (Auto) 0.0 CBC Comment AUTO DIFF Differential Total Cells Counted 100 Neutrophils % (Manual) 66 Band Neutrophils % 31 Lymphocytes % 3 Neutrophils # (Manual) 12.6 Differential Comment FINAL DIFF MANUAL Toxic Granulation 1+ Toxic Vacuolation PRESENT Dohle Bodies PRESENT Platelet Estimate NORMAL Platelet Morphology Comment NORMAL Red Cell Morphology Comment NORMAL Blood Urea Nitrogen 47 Creatinine 2.54 Random Glucose 124 Total Protein 6.5 Albumin 2.7 Calcium Level 8.5 Alkaline Phosphatase 80 Aspartate Amino Transf (AST/SGOT) 7 Alanine Aminotransferase (ALT/SGPT) 11 Total Bilirubin 2.6 Sodium Level 138 Potassium Level 4.5 Chloride Level 100 Carbon Dioxide Level 29.2 Anion Gap 9 Estimat Glomerular Filtration Rate 30 Lactic Acid Level 1.8 Troponin I 1.01 0.95 0.99 B-Type Natriuretic Peptide 757 Lipase 76 Prothrombin Time 16.3 Prothromb Time International Ratio 1.6 Date/Time Source Procedure Growth Status 10/30/17 00:30 Blood Peripheral Aerobic Blood Culture Pending Received 10/30/17 00:30 Blood Peripheral Anaerobic Blood Culture Pending Received (Laisha Licea) Result Diagram: 10/30/17 0030 10/30/17 0030 Imaging Last 72 hours Impressions Chest X-Ray 10/30/17 0000 Signed Impressions: CONCLUSION: Cardiomegaly. Postoperative median sternotomy. No focal infiltrate or significa nt effusion. (Laisha Licea) Assessment and Plan Problem List: (1) Renal failure (ARF), acute on chronic ICD Codes: N17.9 - Acute kidney failure, unspecified; N18.9 - Chronic kidney disease, unspecified Status: Acute Plan: Baseline creatinine 1.6-1.7 Acute worsening due to infection, possibly AIN with recent antibiotic use He is non oliguric with recent Rice placement Tolerating PO, avoid IVF presently Continue present medications, avoid nephrotoxins Monitor drug levels and renally dose when appropriate repeat labs in AM Obtain UA (2) Cellulitis of both lower extremities ICD Codes: L03.115 - Cellulitis of right lower limb; L03.116 - Cellulitis of left lower limb Status: Acute Plan: Wound and ID consulted Given vancomycin Blood cultures in process (3) HTN (hypertension) ICD Codes: I10 - Essential (primary) hypertension Status: Chronic Plan: Conitnue home medicaitons (4) Atrial fibrillation ICD Codes: I48.91 - Unspecified atrial fibrillation Status: Chronic Plan: Slight tachycardia On dose adjusted Coumadin, subtherapeutic currently Assessment and Plan Thank you for the consult. We will continue to follow. (Laisha Licea) Assessment and Plan patient was seen and examined. Agree with above assessment and plan. Monitor urine output and renal function. (Donny Vidal MD) Problem Qualifiers (1) HTN (hypertension): Qualified Codes: I10 - Essential (primary) hypertension (2) Atrial fibrillation: Qualified Codes: I48.2 - Chronic atrial fibrillation Laisha Licea Oct 30, 2017 16:45 Donny Vidal MD Oct 31, 2017 17:16
--- NOTE | 2017-10-30 21:23 | PD.ID.CON ---
History of Present Illness Service ID Consult Requested By Dr Rich Reason for Consult BLE cellultis Primary Care Physician Vipul Eid MD Diagnoses: History of Present Illness 81-year-old male with multiple medical problems including morbid obesity chronic venostasis and BLE lymphedema presented with worsening LE edema , redness, pain in both LE He was started on clindamycin as o/p but was admitted 2/2 worsening of his condition inability to get out of bed Patient also complains of a blister at his right great toe which has ruptured revealing excoriated skin at the dorsal aspect of the right great toe which the patient characterizes as painful. He has CKD with GFR of 30 No fever, but leukocytosis of 13 K with 30% bandemia Blood clx are pending Ruled in by enzymes, NSTEMI Anaphilacticly allergic to PCN, but took Keflex recenntly uneventfully Review of Systems Except as stated in HPI: all other systems reviewed are Neg Past Family Social History Allergies: Coded Allergies: azithromycin (Verified Allergy, Severe, UNKNOWN, 05/22/17) enalaprilat (Verified Allergy, Severe, FACIAL EDEMA, 05/22/17) penicillin G (Verified Allergy, Severe, ANAPHYLAXIS, 05/22/17) Past Medical History 1) HTN 2) cad. 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 Past Surgical History Patient required left craniotomy for evacuation of subdural hemorrhage performed 05/23/[address] Alex Hall. Past Surgical History 1) amputation of ischemic toes 2) umbilical hernia repair 3) left craniotomy for evacuation of subdural hemorrhage performed 05/23/[address] Alex Hall. Active Ordered Medications Medications where reviewed in EMR Antibiotics Include: vancomycin Family History reviewd Noncontributory Social History - , lives with - Daughter lives locally - No tobacco use - No alcohol use - No illicit street drugs Physical Exam Vital Signs Vital Signs Date Time Temp Pulse Resp B/P (MAP) Pulse Ox O2 Delivery O2 Flow Rate FiO2 10/30/17 20:10 98.6 98 20 109/60 (76) 95 10/30/17 18:07 94 10/30/17 17:00 100 10/30/17 16:10 18 10/30/17 16:01 96 10/30/17 15:09 119 10/30/17 15:09 97.8 100 18 145/81 (102) 98 10/30/17 14:01 106 10/30/17 13:09 106 10/30/17 12:01 118 10/30/17 11:34 96 10/30/17 11:34 98.3 110 18 165/91 (115) 95 10/30/17 10:38 117 10/30/17 10:38 98.3 118 20 157/60 (92) 99 10/30/17 09:54 10/30/17 08:00 98.1 107 24 136/77 (96) 100 Room Air 10/30/17 06:06 98.2 86 20 127/60 (82) 97 Room Air 10/30/17 03:00 98.2 89 20 128/55 (79) 98 Room Air 10/30/17 00:14 98.4 87 20 125/52 (76) 96 Physical Exam CONSTITUTIONAL/GENERAL: This is a morbidly obese patient, in no apparent distress. TUBES/LINES/DRAINS: SKIN: No jaundice, Skin temperature appropriate. Not diaphoretic. BLE with 4+ edema and chronic hyperpigmentation + erythema, ascenring lympjhangoitis up to groin on L thigh R hallux with denuded skin both LE exquisetely tender to palpation HEAD: Atraumatic. Normocephalic. EYES: Pupils equal and round and reactive. Extraocular motions intact. No scleral icterus. No injection or drainage. Fundi not examined. ENT: Hearing grossly normal. Nose without bleeding or purulent drainage. Throat without visible erythema, exudates, masses, or lesions. NECK: Trachea midline. Supple, nontender. No palpable thyroid enlargement or nodularity. CARDIOVASCULAR: Regular rate and rhythm without murmurs, gallops, or rubs. No JVD. Peripheral pulses symmetric. RESPIRATORY/CHEST: Symmetric, unlabored respirations. Clear to auscultation. Breath sounds equal bilaterally. No wheezes, rales, or rhonchi. GASTROINTESTINAL: Abdomen soft, non-tender, nondistended. No hepato-splenomegaly , or palpable masses. No guarding. Bowel sounds present. GENITOURINARY: Without palpable bladder distension. MUSCULOSKELETAL: Extremities without clubbing, cyanosis, Massive edema., see above No joint tenderness or effusion noted. No calf tenderness. No mottling or clubbing. LYMPHATICS: No palpable cervical or supraclavicular adenopathy. NEUROLOGICAL: Awake and alert. Motor and sensory grossly within normal limits. Follows commands. Clear speech. Moves all extremities. PSYCHIATRIC: No obvious anxiety/depression. no apparent hallucinations or other psychotic thought process. Laboratory Laboratory Tests Test 10/30/17 00:30 10/30/17 04:10 10/30/17 07:15 White Blood Count 13.0 Red Blood Count 2.91 Hemoglobin 10.0 Hematocrit 30.3 Mean Corpuscular Volume 104.2 Mean Corpuscular Hemoglobin 34.5 Mean Corpuscular Hemoglobin Concent 33.1 Red Cell Distribution Width 15.8 Platelet Count 155 Mean Platelet Volume 8.3 Neutrophils (%) (Auto) 94.1 Lymphocytes (%) (Auto) 3.0 Monocytes (%) (Auto) 2.6 Eosinophils (%) (Auto) 0.2 Basophils (%) (Auto) 0.1 Neutrophils # (Auto) 12.2 Lymphocytes # (Auto) 0.4 Monocytes # (Auto) 0.3 Eosinophils # (Auto) 0.0 Basophils # (Auto) 0.0 CBC Comment AUTO DIFF Differential Total Cells Counted 100 Neutrophils % (Manual) 66 Band Neutrophils % 31 Lymphocytes % 3 Neutrophils # (Manual) 12.6 Differential Comment FINAL DIFF MANUAL Toxic Granulation 1+ Toxic Vacuolation PRESENT Dohle Bodies PRESENT Platelet Estimate NORMAL Platelet Morphology Comment NORMAL Red Cell Morphology Comment NORMAL Blood Urea Nitrogen 47 Creatinine 2.54 Random Glucose 124 Total Protein 6.5 Albumin 2.7 Calcium Level 8.5 Alkaline Phosphatase 80 Aspartate Amino Transf (AST/SGOT) 7 Alanine Aminotransferase (ALT/SGPT) 11 Total Bilirubin 2.6 Sodium Level 138 Potassium Level 4.5 Chloride Level 100 Carbon Dioxide Level 29.2 Anion Gap 9 Estimat Glomerular Filtration Rate 30 Lactic Acid Level 1.8 Troponin I 1.01 0.95 0.99 B-Type Natriuretic Peptide 757 Lipase 76 Prothrombin Time 16.3 Prothromb Time International Ratio 1.6 Date/Time Source Procedure Growth Status 10/30/17 00:30 Blood Peripheral Aerobic Blood Culture Pending Received 10/30/17 00:30 Blood Peripheral Anaerobic Blood Culture Pending Received Result Diagram: 10/30/17 0030 10/30/17 0030 Imaging Last Impressions Chest X-Ray 10/30/17 0000 Signed Impressions: CONCLUSION: Cardiomegaly. Postoperative median sternotomy. No focal infiltrate or significa nt effusion. Assessment and Plan Assessment and Plan Morbid obesity with chronic venostasis BLE celluliti CKD, advanced dc vancomycin start daptomycin: (ACP: concern of worsening of renale fnx) anticipate transition to oral abx prior to dc KEEp BLE above heart level Discussed Condition With Dr Rich @ b/s Nakita Hillman MD Oct 30, 2017 21:23
[2017-10-30] MEDS ORDERED: DAPTOmycin INJ 1,000 MG in SODIUM CHLORIDE 0.9% INJ 100 ML IV SCH (21:30)
[2017-10-30] MEDS: ATORVASTATIN 20 MG TAB PO SCH (21:53)
[2017-10-30] MEDS: TAMSULOSIN HCL 0.4 MG CAP PO SCH (21:53)
[2017-10-30] MEDS: DAPTOmycin INJ 1,000 MG in SODIUM CHLORIDE 0.9% INJ 100 ML IV SCH (22:40)
[2017-10-31] VITALS (19 sets, daily range): BP systolic 106–137; BP diastolic 62–80; PULSE 75–128; RESP 17–22; TEMP 97.4–98.8; O2SAT 95–100
--- NOTE | 2017-10-31 00:27 | RADRPT ---
EXAM DATE: 10/31/2017 12:10 AM EDT AGE/SEX: 81 years / Male INDICATIONS: Chronic edema bilateral lower extremities. CLINICAL DATA: This is the patient's subsequent encounter. Patient reports that signs and symptoms h ave been present for 1 day and indicates a pain score of 10/10. MEDICAL/SURGICAL HISTORY: . CVA. Afib. PR. Hypertension. CAD. CHF. DVT. . Hiatal hernia. CABG. COMPARISON: No prior exams available for comparison. TECHNIQUE: Venous ultrasound of both lower extremities was performed from the inguinal ligament to t he proximal calf. Real-time, color Doppler and spectral tracing, compression and augmentation techni ques were used. FINDINGS: Right Leg: There is normal compressibility of the deep venous system from the inguinal region to the proximal calf. No echogenic clot is seen in the lumen of the common femoral, femoral, popliteal, an d posterior tibial veins. There is a normal response of the venous system to proximal and distal aug mentation and respiration. Left Leg: There is normal compressibility of the deep venous system from the inguinal region to the proximal calf. No echogenic clot is seen in the lumen of the common femoral, femoral, popliteal, and posterior tibial veins. There is a normal response of the venous system to proximal and distal augm entation and respiration. CONCLUSION: 1. Negative for deep venous thrombosis. Electronically signed by: Jareth Moreno MD 10/31/2017 12:25 AM EDT
--- NOTE | 2017-10-31 00:30 | RADRPT ---
EXAM DATE: 10/31/2017 12:07 AM EDT AGE/SEX: 81 years / Male INDICATIONS: Right leg edema. Evaluate for abscess. CLINICAL DATA: This is the patient's initial encounter. Patient reports that signs and symptoms have been present for 1 day and indicates a pain score of 10/10. Location: Laterality: MEDICAL/SURGICAL HISTORY: . CVA. Afib. MA. Hypertension. CAD. CHF. DVT. . Hiatal hernia. CABG. COMPARISON: No prior exams available for comparison. FINDINGS: There is extensive edema in the subcutaneous soft tissues. No discrete or drainable fluid collections to suggest abscess. CONCLUSION: 1. Extensive subcutaneous edema. No drainable fluid collections identified. Electronically signed by: Jareth Moreno MD 10/31/2017 12:29 AM EDT
[2017-10-31] MEDS: ACETAMINOPHEN/HYDROcodone 325 MG/7.5 MG TAB PO PRN ×2 (04:05→09:42)
[2017-10-31 04:47] LABS: AUTOMATED NEUTROPHIL # 12.5 TH/MM3 (1.8-7.7); BASOPHIL % 0.3 % (0.0-2.0); EOSINOPHIL % 0.2 % (0.0-4.0); HEMOGLOBIN 9.9 GM/DL (13.0-17.0); LYMPH % 2.2 % (9.0-44.0); LYMPHOCYTE # 0.3 TH/MM3 (1.0-4.8); MEAN CELL VOLUME 104.4 FL (80.0-100.0); MEAN CORPUSCULAR HEMOGLOBIN 34.4 PG (27.0-34.0); MEAN CORPUSCULAR HGB CONC 32.9 % (32.0-36.0); MEAN PLATELET VOLUME 8.1 FL (7.0-11.0); MONO % 3.7 % (0.0-8.0); MONOCYTE # 0.5 TH/MM3 (0-0.9); NEUT % 93.6 % (16.0-70.0); PLATELET COUNT 159 TH/MM3 (150-450); RED BLOOD COUNT 2.87 MIL/MM3 (4.50-5.90); RED CELL DISTRIBUTION WIDTH 15.7 % (11.6-17.2); WHITE BLOOD COUNT 13.3 TH/MM3 (4.0-11.0)
[2017-10-31 05:09] LABS: INTERNATIONAL NORMALIZED RATIO 1.9 RATIO; PROTHROMBIN TIME - PATIENT 19.2 SEC (9.8-11.6)
[2017-10-31 05:18] LABS: BICARBONATE 27.2 MEQ/L (21.0-32.0); CALCIUM 8.6 MG/DL (8.5-10.1); CREATININE 2.51 MG/DL (0.60-1.30); MAGNESIUM 2.2 MG/DL (1.5-2.5)
[2017-10-31 05:20] LABS: RANDOM VANCOMYCIN 15.4 COMMENT
[2017-10-31] MEDS: HEPARIN SODIUM - SQ 10,000 UNITS/ML VIAL SQ SCH ×3 (06:23→22:00)
[2017-10-31] MEDS: PANTOPRAZOLE SOD 40 MG DELAYED RELEASE TAB PO SCH (09:37)
[2017-10-31] MEDS: METOPROLOL TARTRATE 100 MG TAB PO SCH ×2 (09:37→20:11)
[2017-10-31] MEDS: LOSARTAN 50 MG TAB PO SCH (09:37)
[2017-10-31] MEDS: FUROSEMIDE 40 MG TAB PO SCH (09:37)
--- NOTE | 2017-10-31 09:51 | HHI.NPPN ---
Subjective General Problems: Edema Renal Failure: Chronic, Acute, Stage III Interval History He is awake, lying in bed. No new complaints. Renal function unchanged. (Laisha Licea) Review of Systems Cardiovascular Cardiac: Edema (Laisha Licea) Skin Skin: Lesions, Ulcers (Laisha Licea) Objective Data Data Vital Signs Date Time Temp Pulse Resp B/P (MAP) Pulse Ox O2 Delivery O2 Flow Rate FiO2 10/31/17 08:00 92 10/31/17 07:51 98.0 88 20 114/78 (90) 97 10/31/17 07:00 87 10/31/17 05:18 20 10/31/17 05:00 107 10/31/17 04:00 102 10/31/17 03:33 98.8 107 18 133/70 (91) 97 10/31/17 03:00 128 10/31/17 02:00 98 10/31/17 01:00 104 10/31/17 00:00 102 10/30/17 23:10 98.4 90 20 96/53 (67) 96 10/30/17 23:00 118 10/30/17 22:00 104 10/30/17 21:00 102 10/30/17 20:10 98.6 98 20 109/60 (76) 95 10/30/17 20:00 96 10/30/17 19:00 85 10/30/17 18:07 94 10/30/17 17:00 100 10/30/17 16:01 96 10/30/17 15:09 119 10/30/17 15:09 97.8 100 18 145/81 (102) 98 10/30/17 14:01 106 10/30/17 13:09 106 10/30/17 12:01 118 10/30/17 11:34 96 10/30/17 11:34 98.3 110 18 165/91 (115) 95 10/30/17 10:38 117 10/30/17 10:38 98.3 118 20 157/60 (92) 99 10/30/17 09:54 (Laisha Licea) -: 10/31/17 0435 10/31/17 0435 Imaging Last 72 hours Impressions Lower Extremity Ultrasound 6/7/18 0000 Signed Impressions: CONCLUSION: 1. Extensive subcutaneous edema. No drainable fluid collections identified. Lower Extremity Ultrasound 10/30/17 Signed Impressions: CONCLUSION: 1. Negative for deep venous thrombosis. Chest X-Ray 10/30/17 Signed Impressions: CONCLUSION: Cardiomegaly. Postoperative median sternotomy. No focal infiltrate or significa nt effusion. (Laisha Licea) Physical Exam General Appearance: No Acute Distress, Comfortable, Obese (Laisha Licea) Eyes Eye Exam: Pupils Equal, Pupils Reactive (Laisha Licea [employer]) Throat Throat Exam: Oral Mucosa [place] & Moist (Laisha LiceaP) Pulmonary Resp Exam: Clear Bilaterally, Breath Sounds Equal (Laisha LiceaP) Cardiology CV Exam: Normal Sinus Rhythm, Good Perfusion (Laisha LiceaP) Gastrointestinal/Abdomen GI Exam: Soft, Non-Tender, Bowel Sounds Present (Laisha Licea) Musculoskeletal MS Exam: Joints Intact, Unable to Ambulate, Infections (Laisha Licea) Integumentary Skin Exam: Warm, Dry, Ulcer(s) Skin Remarks erythema and edema to bilateral lower extremities blisters left leg open blister right great toe (Laisha Licea) Extremeties Extremities Exam: Pedal Pulses Palpable, Moderate Edema (Laisha Licea) Neurologic Neuro Exam: Alert, Awake, Oriented, Speech Clear, Moving All Extremities (Laisha Licea) Psychiatric Psych Exam: Appropriate Responses (Laisha Licea) Assessment/Plan Discussed Condition With: Patient, Spouse Assessment Summary: PATO/Acute Renal Failure, Fluid/Volume Overload, Hypertension, Diabetes Mellitus Problem List: (1) Renal failure (ARF), acute on chronic ICD Codes: N17.9 - Acute kidney failure, unspecified; N18.9 - Chronic kidney disease, unspecified Status: Acute Plan: Baseline creatinine 1.6-1.7 PATO most likely due to infection, possibly AIN with recent antibiotic use Renal function has remained unchanged since admission He is non oliguric, Rice was removed. Pending UA results Tolerating PO, avoid IVF presently On Lasix 40 mg PO daily Continue present medications, avoid nephrotoxins. Monitor drug levels and renally dose when appropriate. Vancomycin was stopped. repeat labs in AM (2) Cellulitis of both lower extremities ICD Codes: L03.115 - Cellulitis of right lower limb; L03.116 - Cellulitis of left lower limb Status: Acute Plan: Pending evaluation by Wound; seen by ID Given vancomycin, now on Daptomycin Blood cultures in process (3) HTN (hypertension) ICD Codes: I10 - Essential (primary) hypertension Status: Chronic Plan: Conitnue home medicaitons (4) Atrial fibrillation ICD Codes: I48.91 - Unspecified atrial fibrillation Status: Chronic Plan: Rate controlled On dose adjusted Coumadin, follow INR (Laisha Licea) Plan patient was seen and examined. Renal function is stable. On Daptomycin for cellulitis. (Donny Vidal MD) Problem Qualifiers (1) HTN (hypertension): Qualified Codes: I10 - Essential (primary) hypertension (2) Atrial fibrillation: Qualified Codes: I48.2 - Chronic atrial fibrillation Laisha Licea Oct 31, 2017 09:51 Donny Vidal MD Oct 31, 2017 17:17
[2017-10-31 11:01] LABS: BACTERIA, URINE RARE /hpf; BILIRUBIN, URINE NEG (NEG); BLOOD, URINE NEG (NEG); GLUCOSE,URINE NEG (NEG); HYALINE CAST, URINE 6 /lpf (RARE); KETONE, URINE NEG (NEG); MUCUS URINE FEW /lpf (OCC); NITRITE,URINE NEG (NEG); PH, URINE 5.5 (5.0-8.5); SQUAMOUS EPITHELIAL CELL URINE 1 /hpf (0-5); URINE COLOR YELLOW (YELLW/STRAW); URINE LEUKOCYTE ESTERASE LARGE (NEG); WHITE BLOOD CELL CLUMPS OCC
--- NOTE | 2017-10-31 14:19 | PD.WCN.NOT ---
Wound Consult Description: Received consult from Doctor Rich for evaluation of Great toe wound, BLE lymphedema Communicated with: KAI Dyer CIC, Reva ALAN Recommendation: 1. Please cleanse R great toe with normal saline and pat dry. Apply oil emulsion gauze over open wound in a single layer and apply Maxorb AG over oil emulsion gauze for drainage and cover with dry 2x2 gauze, rolled gauze and tape. Change dressing every 3 days or PRN if saturated or dislodged. 2. Please leave bilateral lower extremities open to air and apply Eucerin cream or available moisturizer and leave open to air. Cleanse open draining wound to LLE with normal saline and pat dry. Apply Optilock and secure with rolled and paper tape. 3. Elevate BLE to reduce edema and place on ultra sorb pads for weeping. 4. Please follow up with out patient wound care for continued treatment and wound healing. Additional Information: Patient seen on [facility] for evaluation of R great toe wound and BLE lymphedema around 1015. Arpan has a history of lymphedema, edematous BLE that weep heavy amounts of drainage when patient is at home. Per patient wound to R great toe began as a blister. R great toe wound presents as unroofed bulla.Wound was measures ~3.5cm x ~4cm x<~0.1cm and extends from dorsal aspect of R great toe to R great toe and second toe interspace.Wound bed presents with ~80% pink tissue , ~20% dried dark red drainage.Loose, unattached skin is noted between 8 and 1'clock that is not approximated. Wound was cleansed with normal saline and attempted to use cotton swab and saline to approximate loose skin. While attempting to do this, thick yellow purulent drainage was expressed from wound. Wound culture was then obtained from R great toe wound. Wound is very tender, Applied oil emulsion gauze in a single layer over open wound to reduce adherence of dressings to wound bed and then covered with Maxorb extra AG dry 2x2 gauze pads were then used to secure with rolled gauze and tape. Assessed wound small draining wound to LLE [place] area. Wound measures ~1cm x ~0, 5cm x ~0.1cm. Wound bed presents with ~90% white tissue and ~10% pink tissue. Wound is draining a moderate amount of thin serous drainage without odor. Wound was cleansed with normal saline and patted dry. Optilock was applied over moderately draining wound. Skin barrier film was applied for skin protection before Optilock was secured with paper tape.Patient needs to elevate BLE with pillows above heart to reduce edema. Leonela Stephens [facility] Oct 31, 2017 14:19
[2017-10-31] MEDS: WARFARIN SOD 3 MG TAB PO SCH (15:29)
[2017-10-31] MEDS ORDERED: EUCERIN CREAM 120 GM JAR TOPICAL PRN (16:15)
--- NOTE | 2017-10-31 17:17 | HHI.PR ---
Subjective Remarks No new complaints. LLE is less painful today. Objective Vitals Vital Signs Date Time Temp Pulse Resp B/P (MAP) Pulse Ox O2 Delivery O2 Flow Rate FiO2 10/31/17 16:48 97.4 75 17 137/62 (87) 95 10/31/17 14:00 80 10/31/17 13:00 101 10/31/17 12:27 98.0 103 22 129/72 (91) 100 10/31/17 12:00 101 10/31/17 11:00 95 10/31/17 10:00 92 10/31/17 09:00 94 10/31/17 08:00 92 10/31/17 07:51 98.0 88 20 114/78 (90) 97 10/31/17 07:00 87 10/31/17 05:18 20 10/31/17 05:00 107 10/31/17 04:00 102 10/31/17 03:33 98.8 107 18 133/70 (91) 97 10/31/17 03:00 128 10/31/17 02:00 98 10/31/17 01:00 104 10/31/17 00:00 102 10/30/17 23:10 98.4 90 20 96/53 (67) 96 10/30/17 23:00 118 10/30/17 22:00 104 10/30/17 21:00 102 10/30/17 20:10 98.6 98 20 109/60 (76) 95 10/30/17 20:00 96 10/30/17 19:00 85 10/30/17 18:07 94 Result Diagram: 10/31/17 0435 10/31/17 0435 Imaging Last Impressions Lower Extremity Ultrasound 10/30/17 0000 Signed Impressions: CONCLUSION: 1. Extensive subcutaneous edema. No drainable fluid collections identified. Chest X-Ray 10/30/17 0000 Signed Impressions: CONCLUSION: Cardiomegaly. Postoperative median sternotomy. No focal infiltrate or significa nt effusion. Objective Remarks GENERAL: This is a well-nourished, well-developed patient, in no apparent distress. CARDIOVASCULAR: Regular rate and rhythm without murmurs, gallops, or rubs. RESPIRATORY: Clear to auscultation. Breath sounds equal bilaterally. No wheezes , rales, or rhonchi. GASTROINTESTINAL: Abdomen soft, non-tender, nondistended. Normal active bowel sounds MUSCULOSKELETAL: LEs less edematous, less erythema at LLE NEURO: Alert & Oriented x4 to person, place, time, situation. Moves all ext x4 A/P Problem List: (1) Cellulitis of both lower extremities ICD Codes: L03.115 - Cellulitis of right lower limb; L03.116 - Cellulitis of left lower limb Status: Acute Plan: Patient patient is a 81-year-old male with multiple medical problems including coronary artery disease, status post CABG, atrial fibrillation, CHF, chronic kidney disease stage III, chronic lower extremity edema. Patient has chronic lower extremity lymphedema. Pt was interviewed at the bedside. I also spoke with his by phone which helped with some of the details. However, exact time course of pt's worsening LE edema and right leg cellulitis NOT completely clear. Pt reports worsening weakness in his knees over the last few months. Pt reports that a few months ago he was able to ambulate short distances in his home using a walker, but he can NO longer ambulate with the walker. Pt was able to transfer independency to his wheelchair, but more recently his LE weakness has progressed to the point where he has NOT been able to independently transfer for the last few days. Pt reports that [facility] comes to his house to provide lymphedema wraps on Mondays and Fridays. Pt is seen by [facility]. He was recently started on clindamycin. He completed only 2 doses. Yesterday pt was NOT able to transfer out of his bed even with the help of his and son. Pt reports that he has had increased pain and swelling to his left leg, particularly laterally at the left thigh and anteriorly below the left knee. Pt reports that he follows with Sports Medicine, Dr. Polo. Pt reports that earlier in the year he had a steroid injection to his knee which initially helped. Pt had kenalog injection of both knees (06/25/17) with some relief to his knee pain. Pt had kenalog injection of both knees (09/26/17) which pt reports provided some relief. Pt subsequently had right knee Synvisc injection (10/06/17) which pt reports did NOT improve his symptoms. Patient also complains of a blister at his right great toe which has ruptured revealing excoriated skin at the dorsal aspect of the right great toe which the patient characterizes as painful. - comgmt with ID and nephrology - Pt received IV Vancomycin in the ER - Daptomycin (10/30 - present) - Blood Cx (10/30) --> NGTD - b/l LE soft tissue US (10/30) --> extensive subcutaneous edema, but no drainable fluid collections - b/l LE Venous doppler US (10/30) --> No DVTs - Pt's INR was subtherapeutic 1.6 (10/30), 1.9 (10/31) - DVT prophylaxis with coumadin/heparin - PT - supportive care - wound care (2) Chronic acquired lymphedema ICD Codes: I89.0 - Lymphedema, not elsewhere classified Status: Acute Plan: - see above (3) Atrial fibrillation ICD Codes: I48.91 - Unspecified atrial fibrillation Status: Chronic Plan: - INR 1.6 (10/30/17) - continue metoprolol 100mg BID - continue coumadin 3mg hs - repeat INR in AM - heparin until INR is therapeutic (4) CKD (chronic kidney disease) stage 3, GFR 30-59 ml/min ICD Codes: N18.3 - Chronic kidney disease, stage 3 (moderate) Status: Chronic Plan: - observe - repeat BMP in AM (5) HTN (hypertension) ICD Codes: I10 - Essential (primary) hypertension Status: Chronic Plan: - metoprolol, cozaar (6) CAD (coronary artery disease) ICD Codes: I25.10 - Atherosclerotic heart disease of [place] coronary artery without angina pectoris Status: Chronic Plan: - metoprolol, lipitor Problem Qualifiers (1) Atrial fibrillation: Qualified Codes: I48.2 - Chronic atrial fibrillation (2) HTN (hypertension): Qualified Codes: I10 - Essential (primary) hypertension (3) CAD (coronary artery disease): Qualified Codes: I25.10 - Atherosclerotic heart disease of [place] coronary artery without angina pectoris Michael Rich DO Oct 31, 2017 17:17
[2017-10-31] MEDS: TAMSULOSIN HCL 0.4 MG CAP PO SCH (20:11)
[2017-10-31] MEDS: ATORVASTATIN 20 MG TAB PO SCH (20:11)
[2017-10-31] MEDS: oxyCODONE/ACETAMINOPHEN 10 MG/325 MG TAB PO PRN (20:11)
[2017-11-01] VITALS (10 sets, daily range): BP systolic 113–146; BP diastolic 60–88; PULSE 72–112; RESP 12–20; TEMP 96.6–98.5; O2SAT 92–98
[2017-11-01] MEDS: oxyCODONE/ACETAMINOPHEN 10 MG/325 MG TAB PO PRN ×2 (01:50→23:03)
[2017-11-01] MEDS: HEPARIN SODIUM - SQ 10,000 UNITS/ML VIAL SQ SCH ×2 (05:53→14:56)
[2017-11-01 08:05] LABS: AUTOMATED NEUTROPHIL # 10.1 TH/MM3 (1.8-7.7); BASOPHIL % 0.3 % (0.0-2.0); EOSINOPHIL % 0.2 % (0.0-4.0); HEMATOCRIT 30.8 % (39.0-51.0); HEMOGLOBIN 10.1 GM/DL (13.0-17.0); LYMPH % 2.8 % (9.0-44.0); LYMPHOCYTE # 0.3 TH/MM3 (1.0-4.8); MEAN CELL VOLUME 104.6 FL (80.0-100.0); MEAN CORPUSCULAR HEMOGLOBIN 34.5 PG (27.0-34.0); MEAN PLATELET VOLUME 8.2 FL (7.0-11.0); MONO % 5.1 % (0.0-8.0); MONOCYTE # 0.6 TH/MM3 (0-0.9); NEUT % 91.6 % (16.0-70.0); PLATELET COUNT 178 TH/MM3 (150-450); RED BLOOD COUNT 2.94 MIL/MM3 (4.50-5.90); RED CELL DISTRIBUTION WIDTH 15.9 % (11.6-17.2)
[2017-11-01 08:08] LABS: INTERNATIONAL NORMALIZED RATIO 2.3 RATIO; PROTHROMBIN TIME - PATIENT 22.9 SEC (9.8-11.6)
[2017-11-01 08:33] LABS: BICARBONATE 25.5 MEQ/L (21.0-32.0); CALCIUM 9.3 MG/DL (8.5-10.1); CREATININE 2.34 MG/DL (0.60-1.30)
[2017-11-01] MEDS: PANTOPRAZOLE SOD 40 MG DELAYED RELEASE TAB PO SCH (09:06)
[2017-11-01] MEDS: METOPROLOL TARTRATE 100 MG TAB PO SCH ×2 (09:06→20:59)
[2017-11-01] MEDS: LOSARTAN 50 MG TAB PO SCH (09:06)
[2017-11-01] MEDS: FUROSEMIDE 40 MG TAB PO SCH (09:06)
[2017-11-01] MEDS ORDERED: CALCIUM CARBONATE 500 MG CHEWABLE TAB CHEW PRN (14:30)
[2017-11-01] MEDS ORDERED: BISACODYL 10 MG SUPP RECTAL PRN (14:30)
--- NOTE | 2017-11-01 14:41 | HHI.IDPN ---
Subjective Subjective Remarks Pt having + blood clx 1/ , coag negative staph no fever WBC down Antibiotics daptomycin Allergies: Coded Allergies: azithromycin (Verified Allergy, Severe, UNKNOWN, 05/22/17) enalaprilat (Verified Allergy, Severe, FACIAL EDEMA, 05/22/17) penicillin G (Verified Allergy, Severe, ANAPHYLAXIS, 05/22/17) Objective . Vital Signs Date Time Temp Pulse Resp B/P (MAP) Pulse Ox O2 Delivery O2 Flow Rate FiO2 11/01/17 12:06 98.3 72 20 135/64 (87) 96 11/01/17 08:06 97.4 95 20 146/88 (107) 92 11/01/17 08:00 98 11/01/17 04:00 94 11/01/17 04:00 98.2 109 12 113/71 (85) 94 11/01/17 00:00 98.5 91 14 113/65 (81) 95 11/01/17 00:00 93 10/31/17 20:00 96 10/31/17 20:00 98.4 103 20 106/80 (89) 97 10/31/17 16:48 97.4 75 17 137/62 (87) 95 . Laboratory Tests Test 10/31/17 04:35 11/01/17 07:33 White Blood Count 13.3 TH/MM3 11.0 TH/MM3 Red Blood Count 2.87 MIL/MM3 2.94 MIL/MM3 Hemoglobin 9.9 GM/DL 10.1 GM/DL Hematocrit 30.0 % 30.8 % Mean Corpuscular Volume 104.4 FL 104.6 FL Mean Corpuscular Hemoglobin 34.4 PG 34.5 PG Mean Corpuscular Hemoglobin Concent 32.9 % 33.0 % Red Cell Distribution Width 15.7 % 15.9 % Platelet Count 159 TH/MM3 178 TH/MM3 Mean Platelet Volume 8.1 FL 8.2 FL Neutrophils (%) (Auto) 93.6 % 91.6 % Lymphocytes (%) (Auto) 2.2 % 2.8 % Monocytes (%) (Auto) 3.7 % 5.1 % Eosinophils (%) (Auto) 0.2 % 0.2 % Basophils (%) (Auto) 0.3 % 0.3 % Neutrophils # (Auto) 12.5 TH/MM3 10.1 TH/MM3 Lymphocytes # (Auto) 0.3 TH/MM3 0.3 TH/MM3 Monocytes # (Auto) 0.5 TH/MM3 0.6 TH/MM3 Eosinophils # (Auto) 0.0 TH/MM3 0.0 TH/MM3 Basophils # (Auto) 0.0 TH/MM3 0.0 TH/MM3 CBC Comment DIFF FINAL DIFF FINAL Differential Comment Laboratory Tests Test 10/31/17 04:35 11/01/17 07:33 Blood Urea Nitrogen 51 MG/DL 50 MG/DL Creatinine 2.51 MG/DL 2.34 MG/DL Random Glucose 122 MG/DL 115 MG/DL Calcium Level 8.6 MG/DL 9.3 MG/DL Magnesium Level 2.2 MG/DL Sodium Level 137 MEQ/L 136 MEQ/L Potassium Level 4.5 MEQ/L 4.3 MEQ/L Chloride Level 100 MEQ/L 99 MEQ/L Carbon Dioxide Level 27.2 MEQ/L 25.5 MEQ/L Anion Gap 10 MEQ/L 12 MEQ/L Estimat Glomerular Filtration Rate 30 ML/MIN 33 ML/MIN Total Creatine Kinase 18 U/L Microbiology Date/Time Source Procedure Growth Status 10/30/17 00:30 Blood Peripheral Aerobic Blood Culture - Preliminary NO GROWTH IN 2 DAYS Resulted 10/30/17 00:30 Blood Peripheral Anaerobic Blood Culture - Preliminary NO GROWTH IN 2 DAYS Resulted 10/30/17 00:30 Blood Peripheral Aerobic Blood Culture - Preliminary Staph Sp Coagulase Negative Resulted 10/30/17 00:30 Blood Peripheral Anaerobic Blood Culture - Preliminary NO GROWTH IN 2 DAYS Resulted 10/31/17 09:45 Urine Catheterized Urine Urine Culture Pending Received 10/31/17 09:45 Wound Toe Gram Stain - Final Resulted 10/31/17 09:45 Wound Culture - Preliminary Gram Negative Narinder Resulted Imaging Last Impressions Lower Extremity Ultrasound 10/30/17 0000 Signed Impressions: CONCLUSION: 1. Extensive subcutaneous edema. No drainable fluid collections identified. Chest X-Ray 10/30/17 0000 Signed Impressions: CONCLUSION: Cardiomegaly. Postoperative median sternotomy. No focal infiltrate or significa nt effusion. Physical Exam CONSTITUTIONAL/GENERAL: This is a morbidly obese patient, in no apparent distress. TUBES/LINES/DRAINS: SKIN: No jaundice, Skin temperature appropriate. Not diaphoretic. BLE edema slightly improved and chronic hyperpigmentation + erythema, ascenring lympjhangoitis up to groin on L thigh R hallux with denuded skin both LE exquisetely tender to palpation HEAD: Atraumatic. Normocephalic. EYES: Pupils equal and round and reactive. Extraocular motions intact. No scleral icterus. No injection or drainage. Fundi not examined. ENT: Hearing grossly normal. Nose without bleeding or purulent drainage. Throat without visible erythema, exudates, masses, or lesions. NECK: Trachea midline. Supple, nontender. No palpable thyroid enlargement or nodularity. CARDIOVASCULAR: Regular rate and rhythm without murmurs, gallops, or rubs. No JVD. Peripheral pulses symmetric. RESPIRATORY/CHEST: Symmetric, unlabored respirations. Clear to auscultation. Breath sounds equal bilaterally. No wheezes, rales, or rhonchi. GASTROINTESTINAL: Abdomen soft, non-tender, nondistended. No hepato-splenomegaly , or palpable masses. No guarding. Bowel sounds present. GENITOURINARY: Without palpable bladder distension. MUSCULOSKELETAL: Extremities without clubbing, cyanosis, Massive edema., much improved erythema still cleaner tube to palpation LYMPHATICS: No palpable cervical or supraclavicular adenopathy. NEUROLOGICAL: Awake and alert. Motor and sensory grossly within normal limits. Follows commands. Clear speech. Moves all extremities. PSYCHIATRIC: No obvious anxiety/depression. no apparent hallucinations or other psychotic thought process. Assessment & Plan Remarks Morbid obesity with chronic venostasis BLE cellulitis GNB from R hallux wound ? clinical signioficance - wound was not purulent and GNB can reperesent colonisation CKD, advanced Low grade coag neg staph bacteremia, doubt clinical signioficance cont daptomycin: (ACP: concern of worsening of renale fnx) anticipate transition to oral abx prior to dc KEEP BLE above heart level Discussed Condition With Nakita Mcgregor MD Nov 01, 2017 14:41
[2017-11-01] MEDS: MAGNESIUM HYDROXIDE SUSP 30 ML CUP PO PRN (14:57)
--- NOTE | 2017-11-01 15:46 | HHI.PR ---
Subjective Remarks Pt c/o continued b/l LE swelling. Pt c/o pain and erythema at LLE. Objective Vitals Vital Signs Date Time Temp Pulse Resp B/P (MAP) Pulse Ox O2 Delivery O2 Flow Rate FiO2 11/01/17 12:06 98.3 72 20 135/64 (87) 96 11/01/17 08:06 97.4 95 20 146/88 (107) 92 11/01/17 08:00 98 11/01/17 04:00 94 11/01/17 04:00 98.2 109 12 113/71 (85) 94 11/01/17 00:00 98.5 91 14 113/65 (81) 95 11/01/17 00:00 93 10/31/17 20:00 96 10/31/17 20:00 98.4 103 20 106/80 (89) 97 10/31/17 16:48 97.4 75 17 137/62 (87) 95 Result Diagram: 11/01/17 0733 11/01/17 0733 Imaging Last Impressions Lower Extremity Ultrasound 10/30/17 0000 Signed Impressions: CONCLUSION: 1. Extensive subcutaneous edema. No drainable fluid collections identified. Chest X-Ray 10/30/17 0000 Signed Impressions: CONCLUSION: Cardiomegaly. Postoperative median sternotomy. No focal infiltrate or significa nt effusion. Objective Remarks GENERAL: This is a well-nourished, well-developed patient, in no apparent distress. CARDIOVASCULAR: Regular rate and rhythm without murmurs, gallops, or rubs. RESPIRATORY: Clear to auscultation. Breath sounds equal bilaterally. No wheezes , rales, or rhonchi. GASTROINTESTINAL: Abdomen soft, non-tender, nondistended. Normal active bowel sounds MUSCULOSKELETAL: b/l LE edema. LLE is weeping. erythema noted at LLE both below and above the level of pt's knee. NEURO: Alert & Oriented x4 to person, place, time, situation. Moves all ext x4 A/P Problem List: (1) Cellulitis of both lower extremities ICD Codes: L03.115 - Cellulitis of right lower limb; L03.116 - Cellulitis of left lower limb Status: Acute Plan: Patient patient is a 81-year-old male with multiple medical problems including coronary artery disease, status post CABG, atrial fibrillation, CHF, chronic kidney disease stage III, chronic lower extremity edema. Patient has chronic lower extremity lymphedema. Pt was interviewed at the bedside. I also spoke with his by phone which helped with some of the details. However, exact time course of pt's worsening LE edema and right leg cellulitis NOT completely clear. Pt reports worsening weakness in his knees over the last few months. Pt reports that a few months ago he was able to ambulate short distances in his home using a walker, but he can NO longer ambulate with the walker. Pt was able to transfer independency to his wheelchair, but more recently his LE weakness has progressed to the point where he has NOT been able to independently transfer for the last few days. Pt reports that [facility] comes to his house to provide lymphedema wraps on Mondays and Fridays. Pt is seen by [facility]. He was recently started on clindamycin. He completed only 2 doses. Yesterday pt was NOT able to transfer out of his bed even with the help of his and son. Pt reports that he has had increased pain and swelling to his left leg, particularly laterally at the left thigh and anteriorly below the left knee. Pt reports that he follows with Sports Medicine, Dr. Polo. Pt reports that earlier in the year he had a steroid injection to his knee which initially helped. Pt had kenalog injection of both knees (06/25/17) with some relief to his knee pain. Pt had kenalog injection of both knees (09/26/17) which pt reports provided some relief. Pt subsequently had right knee Synvisc injection (10/06/17) which pt reports did NOT improve his symptoms. Patient also complains of a blister at his right great toe which has ruptured revealing excoriated skin at the dorsal aspect of the right great toe which the patient characterizes as painful. - comgmt with ID and nephrology - Pt received IV Vancomycin in the ER - Daptomycin (10/30 - present) - Blood Cx (10/30) --> NGTD - b/l LE soft tissue US (10/30) --> extensive subcutaneous edema, but no drainable fluid collections - b/l LE Venous doppler US (10/30) --> No DVTs - Pt's INR was subtherapeutic 1.6 (10/30), 1.9 (10/31), 2.3 (11/01) - DVT prophylaxis with coumadin/heparin - PT - supportive care - wound care (2) Chronic acquired lymphedema ICD Codes: I89.0 - Lymphedema, not elsewhere classified Status: Acute Plan: - see above (3) Atrial fibrillation ICD Codes: I48.91 - Unspecified atrial fibrillation Status: Chronic Plan: - INR 1.6 (10/30/17), 2.3 (11/01) - continue metoprolol 100mg BID - continue coumadin 3mg hs - repeat INR in AM (4) CKD (chronic kidney disease) stage 3, GFR 30-59 ml/min ICD Codes: N18.3 - Chronic kidney disease, stage 3 (moderate) Status: Chronic Plan: - observe - repeat BMP in AM (5) HTN (hypertension) ICD Codes: I10 - Essential (primary) hypertension Status: Chronic Plan: - metoprolol, cozaar (6) CAD (coronary artery disease) ICD Codes: I25.10 - Atherosclerotic heart disease of [place] coronary artery without angina pectoris Status: Chronic Plan: - metoprolol, lipitor Problem Qualifiers (1) Atrial fibrillation: Qualified Codes: I48.2 - Chronic atrial fibrillation (2) HTN (hypertension): Qualified Codes: I10 - Essential (primary) hypertension (3) CAD (coronary artery disease): Qualified Codes: I25.10 - Atherosclerotic heart disease of [place] coronary artery without angina pectoris Michael iRch DO Nov 01, 2017 15:46
--- NOTE | 2017-11-01 16:25 | HHI.NPPN ---
Subjective General Problems: Edema Renal Failure: Chronic, Acute, Stage III Review of Systems Cardiovascular Cardiac: Edema Skin Skin: Lesions, Ulcers Objective Data Data Vital Signs Date Time Temp Pulse Resp B/P (MAP) Pulse Ox O2 Delivery O2 Flow Rate FiO2 11/01/17 12:06 98.3 72 20 135/64 (87) 96 11/01/17 08:06 97.4 95 20 146/88 (107) 92 11/01/17 08:00 98 11/01/17 04:00 94 11/01/17 04:00 98.2 109 12 113/71 (85) 94 11/01/17 00:00 98.5 91 14 113/65 (81) 95 11/01/17 00:00 93 10/31/17 20:00 96 10/31/17 20:00 98.4 103 20 106/80 (89) 97 10/31/17 16:48 97.4 75 17 137/62 (87) 95 -: 11/01/17 0733 11/01/17 0733 Physical Exam General Appearance: No Acute Distress, Comfortable, Obese Eyes Eye Exam: Pupils Equal, Pupils Reactive Throat Throat Exam: Oral Mucosa [place] & Moist Pulmonary Resp Exam: Clear Bilaterally, Breath Sounds Equal Cardiology CV Exam: Normal Sinus Rhythm, Good Perfusion Gastrointestinal/Abdomen GI Exam: Soft, Non-Tender, Bowel Sounds Present Musculoskeletal MS Exam: Joints Intact, Unable to Ambulate, Infections Integumentary Skin Exam: Warm, Dry, Ulcer(s) Extremeties Extremities Exam: Pedal Pulses Palpable, Moderate Edema Neurologic Neuro Exam: Alert, Awake, Oriented, Speech Clear, Moving All Extremities Psychiatric Psych Exam: Appropriate Responses Assessment/Plan Discussed Condition With: Patient, Spouse Assessment Summary: PATO/Acute Renal Failure, Fluid/Volume Overload, Hypertension, Diabetes Mellitus Problem List: (1) Renal failure (ARF), acute on chronic ICD Codes: N17.9 - Acute kidney failure, unspecified; N18.9 - Chronic kidney disease, unspecified Status: Acute Plan: Baseline creatinine 1.6-1.7 PATO most likely due to infection, possibly AIN with recent antibiotic use Renal function has remained unchanged since admission He is non oliguric, Rice was removed. Pending UA results Tolerating PO, avoid IVF presently On Lasix 40 mg PO daily Continue present medications, avoid nephrotoxins. Monitor drug levels and renally dose when appropriate. Vancomycin was stopped. Cr declined to 2.[address] Vidal (2) Cellulitis of both lower extremities ICD Codes: L03.115 - Cellulitis of right lower limb; L03.116 - Cellulitis of left lower limb Status: Acute Plan: Pending evaluation by Wound; seen by ID Given vancomycin, now on Daptomycin Blood cultures in process (3) HTN (hypertension) ICD Codes: I10 - Essential (primary) hypertension Status: Chronic Plan: Conitnue home medicaitons (4) Atrial fibrillation ICD Codes: I48.91 - Unspecified atrial fibrillation Status: Chronic Plan: Rate controlled On dose adjusted Coumadin, follow INR Problem Qualifiers (1) HTN (hypertension): Qualified Codes: I10 - Essential (primary) hypertension (2) Atrial fibrillation: Qualified Codes: I48.2 - Chronic atrial fibrillation Marianna Mosher MD Nov 01, 2017 16:25
[2017-11-01] MEDS: WARFARIN SOD 3 MG TAB PO SCH (16:59)
[2017-11-01] MEDS: FUROSEMIDE 40 MG/4 ML VIAL IV PUSH SCH (16:59)
[2017-11-01] MEDS: ATORVASTATIN 20 MG TAB PO SCH (20:59)
[2017-11-01] MEDS: DOCUSATE SODIUM 100 MG CAP PO SCH (20:59)
[2017-11-01] MEDS: TAMSULOSIN HCL 0.4 MG CAP PO SCH (20:59)
[2017-11-01] MEDS: DAPTOmycin INJ 1,000 MG in SODIUM CHLORIDE 0.9% INJ 100 ML IV SCH (23:03)
[2017-11-02] VITALS (11 sets, daily range): BP systolic 93–130; BP diastolic 55–82; PULSE 77–135; RESP 20; TEMP 96.8–98.7; O2SAT 93–99
[2017-11-02 06:18] LABS: INTERNATIONAL NORMALIZED RATIO 2.5 RATIO; PROTHROMBIN TIME - PATIENT 24.8 SEC (9.8-11.6)
[2017-11-02 06:37] LABS: CREATININE 2.55 MG/DL (0.60-1.30)
[2017-11-02] MEDS: LOSARTAN 50 MG TAB PO SCH (09:33)
[2017-11-02] MEDS: FUROSEMIDE 40 MG/4 ML VIAL IV PUSH SCH (09:33)
[2017-11-02] MEDS: METOPROLOL TARTRATE 100 MG TAB PO SCH ×2 (09:33→20:54)
[2017-11-02] MEDS: DOCUSATE SODIUM 100 MG CAP PO SCH ×2 (09:33→20:54)
[2017-11-02] MEDS: PANTOPRAZOLE SOD 40 MG DELAYED RELEASE TAB PO SCH (09:33)
[2017-11-02] MEDS: oxyCODONE/ACETAMINOPHEN 10 MG/325 MG TAB PO PRN ×2 (09:38→20:54)
--- NOTE | 2017-11-02 11:33 | HHI.PR ---
Subjective Remarks No new complaints. Objective Vitals Vital Signs Date Time Temp Pulse Resp B/P (MAP) Pulse Ox O2 Delivery O2 Flow Rate FiO2 11/02/17 08:05 98.6 86 20 110/55 (73) 95 11/02/17 04:00 Nasal Cannula 2.00 11/02/17 04:00 97.0 110 20 130/61 (84) 99 11/02/17 03:59 110 11/02/17 00:37 110 11/02/17 00:00 96.8 85 20 121/62 (81) 97 11/02/17 00:00 Room Air 11/01/17 20:01 112 11/01/17 20:00 96.6 105 20 115/60 (78) 98 11/01/17 20:00 Room Air 11/01/17 16:06 98.1 100 19 132/72 (92) 95 11/01/17 16:00 99 11/01/17 12:06 98.3 72 20 135/64 (87) 96 11/01/17 12:00 112 Result Diagram: 11/01/17 0733 11/02/17 0600 Imaging Last Impressions Lower Extremity Ultrasound 10/30/17 0000 Signed Impressions: CONCLUSION: 1. Extensive subcutaneous edema. No drainable fluid collections identified. Chest X-Ray 10/30/17 0000 Signed Impressions: CONCLUSION: Cardiomegaly. Postoperative median sternotomy. No focal infiltrate or significa nt effusion. Objective Remarks GENERAL: This is a well-nourished, well-developed patient, in no apparent distress. CARDIOVASCULAR: Regular rate and rhythm without murmurs, gallops, or rubs. RESPIRATORY: Clear to auscultation. Breath sounds equal bilaterally. No wheezes , rales, or rhonchi. GASTROINTESTINAL: Abdomen soft, non-tender, nondistended. Normal active bowel sounds MUSCULOSKELETAL: b/l LE edema. LLE still with some erythema, but less drainage today. NEURO: Alert & Oriented x4 to person, place, time, situation. Moves all ext x4 A/P Problem List: (1) Cellulitis of both lower extremities ICD Codes: L03.115 - Cellulitis of right lower limb; L03.116 - Cellulitis of left lower limb Status: Acute Plan: Patient patient is a 81-year-old male with multiple medical problems including coronary artery disease, status post CABG, atrial fibrillation, CHF, chronic kidney disease stage III, chronic lower extremity edema. Patient has chronic lower extremity lymphedema. Pt was interviewed at the bedside. I also spoke with his by phone which helped with some of the details. However, exact time course of pt's worsening LE edema and right leg cellulitis NOT completely clear. Pt reports worsening weakness in his knees over the last few months. Pt reports that a few months ago he was able to ambulate short distances in his home using a walker, but he can NO longer ambulate with the walker. Pt was able to transfer independency to his wheelchair, but more recently his LE weakness has progressed to the point where he has NOT been able to independently transfer for the last few days. Pt reports that [facility] comes to his house to provide lymphedema wraps on Mondays and Fridays. Pt is seen by [facility]. He was recently started on clindamycin. He completed only 2 doses. Yesterday pt was NOT able to transfer out of his bed even with the help of his and son. Pt reports that he has had increased pain and swelling to his left leg, particularly laterally at the left thigh and anteriorly below the left knee. Pt reports that he follows with Sports Medicine, Dr. Polo. Pt reports that earlier in the year he had a steroid injection to his knee which initially helped. Pt had kenalog injection of both knees (06/25/17) with some relief to his knee pain. Pt had kenalog injection of both knees (09/26/17) which pt reports provided some relief. Pt subsequently had right knee Synvisc injection (10/06/17) which pt reports did NOT improve his symptoms. Patient also complains of a blister at his right great toe which has ruptured revealing excoriated skin at the dorsal aspect of the right great toe which the patient characterizes as painful. - comgmt with ID and nephrology - Pt received IV Vancomycin in the ER - Daptomycin (10/30 - present) - Blood Cx (10/30) --> staph coag in one bottle (likely contaminant) - b/l LE soft tissue US (10/30) --> extensive subcutaneous edema, but no drainable fluid collections - b/l LE Venous doppler US (10/30) --> No DVTs - Pt's INR was subtherapeutic 1.6 (10/30), 1.9 (10/31), 2.3 (11/01), 2.5 (11/02) - DVT prophylaxis with coumadin/heparin - PT - supportive care - wound care (2) Chronic acquired lymphedema ICD Codes: I89.0 - Lymphedema, not elsewhere classified Status: Acute Plan: - see above (3) Atrial fibrillation ICD Codes: I48.91 - Unspecified atrial fibrillation Status: Chronic Plan: - INR 1.6 (10/30/17), 2.3 (11/01), 2.5 (11/02) - continue metoprolol 100mg BID - continue coumadin 3mg hs - repeat INR in AM (4) CKD (chronic kidney disease) stage 3, GFR 30-59 ml/min ICD Codes: N18.3 - Chronic kidney disease, stage 3 (moderate) Status: Chronic Plan: - observe - comgmt with Nephrology - Cr 2.55 (11/02) - repeat BMP in AM (5) HTN (hypertension) ICD Codes: I10 - Essential (primary) hypertension Status: Chronic Plan: - metoprolol, cozaar (6) CAD (coronary artery disease) ICD Codes: I25.10 - Atherosclerotic heart disease of [place] coronary artery without angina pectoris Status: Chronic Plan: - metoprolol, lipitor Problem Qualifiers (1) Atrial fibrillation: Qualified Codes: I48.2 - Chronic atrial fibrillation (2) HTN (hypertension): Qualified Codes: I10 - Essential (primary) hypertension (3) CAD (coronary artery disease): Qualified Codes: I25.10 - Atherosclerotic heart disease of [place] coronary artery without angina pectoris Michael Rich DO Nov 02, 2017 11:33
--- NOTE | 2017-11-02 15:12 | HHI.NPPN ---
Subjective General Problems: Edema Renal Failure: Chronic, Acute, Stage III Review of Systems Cardiovascular Cardiac: Edema Skin Skin: Lesions, Ulcers Objective Data Data Vital Signs Date Time Temp Pulse Resp B/P (MAP) Pulse Ox O2 Delivery O2 Flow Rate FiO2 11/02/17 12:05 98.3 77 20 95/55 (68) 95 11/02/17 09:33 Room Air 11/02/17 08:05 98.6 86 20 110/55 (73) 95 11/02/17 04:00 Nasal Cannula 2.00 11/02/17 04:00 97.0 110 20 130/61 (84) 99 11/02/17 03:59 110 11/02/17 00:37 110 11/02/17 00:00 96.8 85 20 121/62 (81) 97 11/02/17 00:00 Room Air 11/01/17 20:01 112 11/01/17 20:00 96.6 105 20 115/60 (78) 98 11/01/17 20:00 Room Air 11/01/17 16:06 98.1 100 19 132/72 (92) 95 11/01/17 16:00 99 -: 11/01/17 0733 11/02/17 0600 Physical Exam General Appearance: No Acute Distress, Comfortable, Obese Eyes Eye Exam: Pupils Equal, Pupils Reactive Throat Throat Exam: Oral Mucosa [place] & Moist Pulmonary Resp Exam: Clear Bilaterally, Breath Sounds Equal Cardiology CV Exam: Normal Sinus Rhythm, Good Perfusion Gastrointestinal/Abdomen GI Exam: Soft, Non-Tender, Bowel Sounds Present Musculoskeletal MS Exam: Joints Intact, Unable to Ambulate, Infections Integumentary Skin Exam: Warm, Dry, Ulcer(s) Extremeties Extremities Exam: Pedal Pulses Palpable, Moderate Edema Neurologic Neuro Exam: Alert, Awake, Oriented, Speech Clear, Moving All Extremities Psychiatric Psych Exam: Appropriate Responses Assessment/Plan Discussed Condition With: Patient, Spouse Assessment Summary: PATO/Acute Renal Failure, Fluid/Volume Overload, Hypertension, Diabetes Mellitus Problem List: (1) Renal failure (ARF), acute on chronic ICD Codes: N17.9 - Acute kidney failure, unspecified; N18.9 - Chronic kidney disease, unspecified Status: Acute Plan: Baseline creatinine 1.6-1.7 PATO most likely due to infection, possibly AIN with recent antibiotic use Renal function has remained unchanged since admission He is non oliguric, Rice was removed. Pending UA results Tolerating PO, avoid IVF presently On Lasix 40 mg PO daily Continue present medications, avoid nephrotoxins. Monitor drug levels and renally dose when appropriate. Vancomycin was stopped. Cr up to 2.[address] Vidal (2) Cellulitis of both lower extremities ICD Codes: L03.115 - Cellulitis of right lower limb; L03.116 - Cellulitis of left lower limb Status: Acute Plan: Pending evaluation by Wound; seen by ID Given vancomycin, now on Daptomycin Blood cultures in process (3) HTN (hypertension) ICD Codes: I10 - Essential (primary) hypertension Status: Chronic Plan: Conitnue home medicaitons (4) Atrial fibrillation ICD Codes: I48.91 - Unspecified atrial fibrillation Status: Chronic Plan: Rate controlled On dose adjusted Coumadin, follow INR Problem Qualifiers (1) HTN (hypertension): Qualified Codes: I10 - Essential (primary) hypertension (2) Atrial fibrillation: Qualified Codes: I48.2 - Chronic atrial fibrillation Marianna Mosher MD Nov 02, 2017 15:12
--- NOTE | 2017-11-02 17:16 | PD.CONS ---
History of Present Illness Service Foot and ankle surgery/podiatry Consult Requested By Reason for Consult Bilateral lower extremity lymphedema Primary Care Physician Vipul Eid MD Diagnoses: History of Present Illness Podiatry consulted for this 53-year-old male with bilateral lymphedema. Patient has past medical history including coronary artery disease, status post CABG, atrial fibrillation, CHF, chronic kidney disease stage III, as well as chronic lower extremity edema. Patient states his following up with outpatient lymphedema clinic in [place]. He has not been following up as there was change in staff that he no longer goes there. Patient states 's choice consult with house to provide lymphedema wraps on Mondays and Fridays but those wraps tend to follow-up for the nurse even gets up the driveway, per patient. Patient has had increased pain and swelling to left lower extremity. He was unable to transfer out of his bed and therefore he proceeded to the hospital. Review of Systems Constitutional: COMPLAINS OF: Fatigue, DENIES: Fever Eyes: DENIES: Blurred vision Respiratory: COMPLAINS OF: Shortness of breath, DENIES: Cough Cardiovascular: DENIES: Chest pain, Palpitations Musculoskeletal: COMPLAINS OF: Joint pain Neurologic: COMPLAINS OF: Abnormal gait Psychiatric: DENIES: Anxiety, Confusion Past Family Social History Allergies: Coded Allergies: azithromycin (Verified Allergy, Severe, UNKNOWN, 05/22/17) enalaprilat (Verified Allergy, Severe, FACIAL EDEMA, 05/22/17) penicillin G (Verified Allergy, Severe, ANAPHYLAXIS, 05/22/17) Past Medical History As per HPI Active Ordered Medications Current Medications Medications (Trade) Dose Ordered Sig/Deni Route Start Time Stop Time Status Last Admin (Xanax) 0.5 mg Q8H PRN PO 10/30/17 12:15 (Lipitor) 20 mg HS PO 10/30/17 21:00 11/01/17 20:59 (Cozaar) 50 mg DAILY PO 10/31/17 09:00 11/02/17 09:33 (Lopressor) 100 mg Q12HR PO 10/30/17 12:15 11/02/17 09:33 (Protonix) 40 mg DAILY PO 10/30/17 12:15 11/02/17 09:33 (Flomax) 0.4 mg HS PO 10/30/17 21:00 11/01/17 20:59 (Coumadin) 3 mg DAILY@1600 PO 10/30/17 16:00 11/01/17 16:59 Daptomycin 1000 mg/Sodium Chloride 100 ml @ 200 mls/hr Q48H IV 10/30/17 23:00 11/01/17 23:03 (Eucerin Cream) 1 applic Q6H PRN TOPICAL 10/31/17 16:15 (Percocet 10-325 Mg) 1 tab Q6H PRN PO 10/31/17 16:30 11/02/17 09:38 (Colace) 100 mg BID PO 11/01/17 21:00 11/02/17 09:33 (Milk Of Magnesia Liq) 30 ml DAILY PRN PO 11/01/17 14:30 11/01/17 14:57 (Dulcolax Supp) 10 mg DAILY PRN RECTAL 11/01/17 14:30 (Tums Chew) 500 mg Q2H PRN CHEW 11/01/17 14:30 11/01/17 14:56 (Lasix Inj) 40 mg DAILY IV PUSH 11/01/17 15:00 11/02/17 09:33 Physical Exam Vital Signs Vital Signs Date Time Temp Pulse Resp B/P (MAP) Pulse Ox O2 Delivery O2 Flow Rate FiO2 11/02/17 12:05 98.3 77 20 95/55 (68) 95 11/02/17 09:33 Room Air 11/02/17 08:05 98.6 86 20 110/55 (73) 95 11/02/17 04:00 Nasal Cannula 2.00 11/02/17 04:00 97.0 110 20 130/61 (84) 99 11/02/17 03:59 110 11/02/17 00:37 110 11/02/17 00:00 96.8 85 20 121/62 (81) 97 11/02/17 00:00 Room Air 11/01/17 20:01 112 11/01/17 20:00 96.6 105 20 115/60 (78) 98 11/01/17 20:00 Room Air Physical Exam GENERAL: This is a well-nourished, well-developed patient, in no apparent distress. SKIN: Brawny induration noted with peau d'orange dimpled skin bilateral lower extremities HEAD: Atraumatic. EYES: Pupils equal round and reactive. ENT: Airway patent. NECK: Trachea midline. RESPIRATORY: Nonlabored breathing. MUSCULOSKELETAL:. Negative Homans sign bilaterally. NEUROLOGICAL: Awake and alert. Normal speech. Lower extremity physical exam: Vascular: Dorsalis pedis nonpalpable secondary to edema to bilateral lower extremity, posterior tibial nonpalpable secondary to edema to bilateral lower extremity. Capillary refill time within normal limits to digits 5 bilateral foot. Edema present +3+ plus pitting bilateral lower extremity Neuro: Gross sensation intact to bilateral lower extremity. Pinpoint sensation decreased. No hyperalgesia noted to bilateral lower extremity Dermatology: Normal temperature and turgor to bilateral lower extremity. Brawny induration noted with peau d'orange dimpled skin bilateral lower extremities. Multiple bilateral lower extremity superficial weeping ulcers. Right hallux superficial ulceration noted with granular base, periwound edema, no periwound erythema, mild serous drainage. Musculoskeletal: Tender to palpation to bilateral lower extremity as well as left hallux varus ulceration. Laboratory Laboratory Tests Test 11/02/17 06:00 Prothrombin Time 24.8 Prothromb Time International Ratio 2.5 Blood Urea Nitrogen 55 Creatinine 2.55 Random Glucose 129 Calcium Level 9.0 Sodium Level 138 Potassium Level 4.5 Chloride Level 100 Carbon Dioxide Level 27.0 Anion Gap 11 Estimat Glomerular Filtration Rate 30 Date/Time Source Procedure Growth Status 10/30/17 00:30 Blood Peripheral Aerobic Blood Culture - Preliminary NO GROWTH IN 3 DAYS Resulted 10/30/17 00:30 Blood Peripheral Anaerobic Blood Culture - Preliminary NO GROWTH IN 3 DAYS Resulted 10/31/17 09:45 Urine Catheterized Urine Urine Culture - Final Viola Albicans Complete 10/31/17 09:45 Wound Toe Gram Stain - Final Resulted 10/31/17 09:45 Wound Culture - Preliminary Pseudomonas Aeruginosa Resulted Result Diagram: 11/01/17 0733 11/02/17 0600 Imaging Last Impressions Lower Extremity Ultrasound 10/30/17 0000 Signed Impressions: CONCLUSION: 1. Extensive subcutaneous edema. No drainable fluid collections identified. Chest X-Ray 10/30/17 0000 Signed Impressions: CONCLUSION: Cardiomegaly. Postoperative median sternotomy. No focal infiltrate or significa nt effusion. Assessment and Plan Assessment and Plan 81-year-old male with bilateral lower extremity lymphedema Patient examined and evaluated with present bedside Recommended continue use of lymphedema clinic, will place case management consult to ensure patient makes it to a lymphedema clinic Patient will need daily compression Will place orders for wound care nurse to evaluate for triple layer compression with Unna boots to be changed every 48-72 hours Continue with current wound care plans for right hallux ulceration, daily dressing changes with silver fork and DSD Patient to be discharged to either rehab facility or to home, most likely rehab facility [facility] 2 compression wraps recommended when discharged to home or rehab facility Patient will need close follow-up while in rehab and recommend he start lymphedema clinic while in rehab and transportation is made available Cynthia Holden DPM Nov 02, 2017 17:16
[2017-11-02] MEDS: WARFARIN SOD 3 MG TAB PO SCH (17:30)
[2017-11-02] MEDS: ATORVASTATIN 20 MG TAB PO SCH (20:53)
[2017-11-02] MEDS: TAMSULOSIN HCL 0.4 MG CAP PO SCH (20:53)
[2017-11-03] VITALS (12 sets, daily range): BP systolic 106–131; BP diastolic 57–74; PULSE 64–112; RESP 18–20; TEMP 97.2–98.4; O2SAT 94–98
[2017-11-03 06:01] LABS: PROTHROMBIN TIME - PATIENT 29.9 SEC (9.8-11.6)
[2017-11-03] MEDS: DOCUSATE SODIUM 100 MG CAP PO SCH ×2 (09:52→20:55)
[2017-11-03] MEDS: FUROSEMIDE 40 MG/4 ML VIAL IV PUSH SCH (09:52)
[2017-11-03] MEDS: LOSARTAN 50 MG TAB PO SCH (09:53)
[2017-11-03] MEDS: METOPROLOL TARTRATE 100 MG TAB PO SCH ×2 (09:53→20:56)
[2017-11-03] MEDS: PANTOPRAZOLE SOD 40 MG DELAYED RELEASE TAB PO SCH (09:53)
[2017-11-03] MEDS: oxyCODONE/ACETAMINOPHEN 10 MG/325 MG TAB PO PRN (10:16)
--- NOTE | 2017-11-03 10:36 | HHI.PR ---
Subjective Remarks pt seems more accepting of snf today but is now crying over the decision. Objective Vitals heart reg lung cta abd s/nt ext lower ext lymphedema bilaterally. bandage over left casillas removed. ulcerations noted right hallux ulceration w/out erythema or drainage. Vital Signs Date Time Temp Pulse Resp B/P (MAP) Pulse Ox O2 Delivery O2 Flow Rate FiO2 11/03/17 08:02 97.9 64 20 106/74 (85) 96 11/03/17 04:00 97.2 82 18 125/57 (79) 97 11/03/17 00:00 97.8 88 18 118/57 (77) 95 11/02/17 20:00 98.0 109 20 93/56 (68) 93 11/02/17 16:05 98.7 135 20 109/82 (91) 93 11/02/17 16:03 132 11/02/17 12:14 110 11/02/17 12:05 98.3 77 20 95/55 (68) 95 Result Diagram: 11/01/17 0733 11/02/17 0600 Imaging Last Impressions Lower Extremity Ultrasound 10/30/17 0000 Signed Impressions: CONCLUSION: 1. Extensive subcutaneous edema. No drainable fluid collections identified. Chest X-Ray 10/30/17 0000 Signed Impressions: CONCLUSION: Cardiomegaly. Postoperative median sternotomy. No focal infiltrate or significa nt effusion. A/P Problem List: (1) Cellulitis of both lower extremities ICD Codes: L03.115 - Cellulitis of right lower limb; L03.116 - Cellulitis of left lower limb Status: Acute Plan: Patient patient is a 81-year-old male with multiple medical problems including coronary artery disease, status post CABG, atrial fibrillation, CHF, chronic kidney disease stage III, chronic lower extremity edema. Patient has chronic lower extremity lymphedema. Pt reports worsening weakness in his knees over the last few months. Pt reports that a few months ago he was able to ambulate short distances in his home using a walker, but he can NO longer ambulate with the walker. Pt was able to transfer independency to his wheelchair, but more recently his LE weakness has progressed to the point where he has NOT been able to independently transfer for the last few days. Pt reports that [facility] comes to his house to provide lymphedema wraps on Mondays and Fridays. Pt is seen by [facility]. He was recently started on clindamycin. He completed only 2 doses. Pt reports that he has had increased pain and swelling to his left leg, particularly laterally at the left thigh and anteriorly below the left knee. Pt reports that he follows with Sports Medicine, Dr. Polo. Pt reports that earlier in the year he had a steroid injection to his knee which initially helped. Pt had kenalog injection of both knees (06/25/17) with some relief to his knee pain. Pt had kenalog injection of both knees (09/26/17) which pt reports provided some relief. Pt subsequently had right knee Synvisc injection (10/06/17) which pt reports did NOT improve his symptoms. Patient also complains of a blister at his right great toe which has ruptured revealing excoriated skin at the dorsal aspect of the right great toe which the patient characterizes as painful. - comgmt with ID and nephrology - Pt received IV Vancomycin in the ER - Daptomycin (10/30 - present) - Blood Cx (10/30) --> staph coag in one bottle (likely contaminant) - toe wound cx shows pseudomonas - b/l LE soft tissue US (10/30) --> extensive subcutaneous edema, but no drainable fluid collections - b/l LE Venous doppler US (10/30) --> No DVTs - Pt's INR was subtherapeutic 1.6 (10/30), 1.9 (10/31), 2.3 (11/01), 2.5 (11/02) - DVT prophylaxis with coumadin/heparin - PT - podiatry evaluated the pt and recommending compression and local wound care will await ID reccs for dc abx to snf (2) Chronic acquired lymphedema ICD Codes: I89.0 - Lymphedema, not elsewhere classified Status: Acute Plan: - see above (3) Atrial fibrillation ICD Codes: I48.91 - Unspecified atrial fibrillation Status: Chronic Plan: - INR 1.6 (10/30/17), 2.3 (11/01), 2.5 (11/02) - continue metoprolol 100mg BID -coumadin (4) CKD (chronic kidney disease) stage 3, GFR 30-59 ml/min ICD Codes: N18.3 - Chronic kidney disease, stage 3 (moderate) Status: Chronic Plan: - observe - comgmt with Nephrology - Cr 2.55 (11/02) - repeat BMP in AM (5) HTN (hypertension) ICD Codes: I10 - Essential (primary) hypertension Status: Chronic Plan: - metoprolol, cozaar (6) CAD (coronary artery disease) ICD Codes: I25.10 - Atherosclerotic heart disease of [place] coronary artery without angina pectoris Status: Chronic Plan: - metoprolol, lipitor Problem Qualifiers (1) Atrial fibrillation: Qualified Codes: I48.2 - Chronic atrial fibrillation (2) HTN (hypertension): Qualified Codes: I10 - Essential (primary) hypertension (3) CAD (coronary artery disease): Qualified Codes: I25.10 - Atherosclerotic heart disease of [place] coronary artery without angina pectoris Alfonso Asif MD Nov 03, 2017 10:36
--- NOTE | 2017-11-03 10:39 | HHI.NPPN ---
Subjective General Problems: Edema Renal Failure: Chronic, Acute, Stage III Interval History Sitting up in a chair. Labs from today not available. (Laisha Licea) Review of Systems Cardiovascular Cardiac: Edema (Laisha Licea) Skin Skin: Lesions, Ulcers (Laisha Licea) Objective Data Data Vital Signs Date Time Temp Pulse Resp B/P (MAP) Pulse Ox O2 Delivery O2 Flow Rate FiO2 11/03/17 08:02 97.9 64 20 106/74 (85) 96 11/03/17 04:00 97.2 82 18 125/57 (79) 97 11/03/17 00:00 97.8 88 18 118/57 (77) 95 11/02/17 20:00 98.0 109 20 93/56 (68) 93 11/02/17 16:05 98.7 135 20 109/82 (91) 93 11/02/17 16:03 132 11/02/17 12:14 110 11/02/17 12:05 98.3 77 20 95/55 (68) 95 (Laisha Licea) -: 11/01/17 0733 11/02/17 0600 Physical Exam General Appearance: No Acute Distress, Comfortable, Obese (Laisha Licea) Eyes Eye Exam: Pupils Equal, Pupils Reactive (Laisha Licea) Throat Throat Exam: Oral Mucosa [place] & Moist (Laisha Licea) Pulmonary Resp Exam: Clear Bilaterally, Breath Sounds Equal (Laisha Licea) Cardiology CV Exam: Normal Sinus Rhythm, Good Perfusion (Laisha Licea) Gastrointestinal/Abdomen GI Exam: Soft, Non-Tender, Bowel Sounds Present (Laisha Licea) Musculoskeletal MS Exam: Joints Intact, Unable to Ambulate, Infections (Laisha Licea) Integumentary Skin Exam: Warm, Dry, Ulcer(s) Skin Remarks erythema and edema to bilateral lower extremities blisters left leg open blister right great toe (Laisha Licea) Extremeties Extremities Exam: Pedal Pulses Palpable, Moderate Edema (Laisha Licea) Neurologic Neuro Exam: Alert, Awake, Oriented, Speech Clear, Moving All Extremities (Laisha Licea) Psychiatric Psych Exam: Appropriate Responses (Laisha Licea) Assessment/Plan Discussed Condition With: Patient, Spouse Assessment Summary: PATO/Acute Renal Failure, Fluid/Volume Overload, Hypertension, Diabetes Mellitus Problem List: (1) Renal failure (ARF), acute on chronic ICD Codes: N17.9 - Acute kidney failure, unspecified; N18.9 - Chronic kidney disease, unspecified Status: Acute Plan: Baseline creatinine 1.6-1.7 PATO most likely due to infection, possibly AIN with recent antibiotic use Awaiting renal panel from today He is non oliguric UA with deidre Tolerating PO, not on IVF On Lasix 40 mg PO daily Continue present medications, avoid nephrotoxins. (2) Cellulitis of both lower extremities ICD Codes: L03.115 - Cellulitis of right lower limb; L03.116 - Cellulitis of left lower limb Status: Acute Plan: ID and wound following Wound culture with pseudomonas On IV Daptomycin (3) HTN (hypertension) ICD Codes: I10 - Essential (primary) hypertension Status: Chronic Plan: Conitnue home medicaitons (4) Atrial fibrillation ICD Codes: I48.91 - Unspecified atrial fibrillation Status: Chronic Plan: Rate controlled On dose adjusted Coumadin, follow INR Currently therapeutic (Laisha Licea) Plan patient was seen and examined. Wound culture grew Pseudomonas. If considered significant, he will need additional antimicrobial agent as Daptomycin will not be able to cover it. Patient can be discharged from renal standpoint. (Donny Vidal MD) Problem Qualifiers (1) HTN (hypertension): Qualified Codes: I10 - Essential (primary) hypertension (2) Atrial fibrillation: Qualified Codes: I48.2 - Chronic atrial fibrillation Laisha Licea Nov 03, 2017 10:39 Donny Vidal MD Nov 03, 2017 11:33
[2017-11-03 14:35] LABS: BICARBONATE 28.3 MEQ/L (21.0-32.0); CALCIUM 9.1 MG/DL (8.5-10.1); CREATININE 2.41 MG/DL (0.60-1.30)
--- NOTE | 2017-11-03 16:00 | PD.WCN.NOT ---
Wound Consult Description: Received consult from Doctor Holden for bilateral lower extremity edema triple layer compression wraps Communicated with: Anna Darnell and Doctor Holden Recommendation: ABIs results before compression application Additional Information: Patient not seen, Spoke with Doctor Holden and Bertha Darnell RN [address] [place]. Received telephone order from Doctor Holden podiatry for MANOHAR. Will continue with compression wraps if indicated with MANOHAR results tomorrow. Leonela Stephens [facility] Nov 03, 2017 16:00
[2017-11-03] MEDS: WARFARIN SOD 3 MG TAB PO SCH (16:14)
[2017-11-03] MEDS: ALPRAZolam 0.5 MG TAB PO PRN (20:55)
[2017-11-03] MEDS: ATORVASTATIN 20 MG TAB PO SCH (20:55)
[2017-11-03] MEDS: TAMSULOSIN HCL 0.4 MG CAP PO SCH (20:56)
[2017-11-03] MEDS: DAPTOmycin INJ 1,000 MG in SODIUM CHLORIDE 0.9% INJ 100 ML IV SCH (23:29)
--- NOTE | 2017-11-03 23:37 | HHI.IDPN ---
Subjective Subjective Remarks Pt having + blood clx 1/ , coag negative staph no fever WBC down co severe LLE soreness not compliant with leg elevation Antibiotics daptomycin Allergies: Coded Allergies: azithromycin (Verified Allergy, Severe, UNKNOWN, 05/22/17) enalaprilat (Verified Allergy, Severe, FACIAL EDEMA, 05/22/17) penicillin G (Verified Allergy, Severe, ANAPHYLAXIS, 05/22/17) Objective . Vital Signs Date Time Temp Pulse Resp B/P (MAP) Pulse Ox O2 Delivery O2 Flow Rate FiO2 11/03/17 20:44 97.8 103 18 115/57 (76) 98 11/03/17 18:37 Room Air 11/03/17 16:02 98.0 72 20 122/62 (82) 95 11/03/17 16:00 76 11/03/17 12:02 98.4 82 20 131/58 (82) 94 11/03/17 12:00 112 11/03/17 08:02 97.9 64 20 106/74 (85) 96 11/03/17 08:00 91 11/03/17 04:00 97.2 82 18 125/57 (79) 97 11/03/17 00:00 97.8 88 18 118/57 (77) 95 11/03/17 11/03/17 11/04/17 15:00 23:00 07:00 Intake Total 480 ml Balance 480 ml Intake Oral 480 ml # Voids 1 # Bowel Movements 0 . Laboratory Tests Test 11/02/17 06:00 11/03/17 13:04 Blood Urea Nitrogen 55 MG/DL 55 MG/DL Creatinine 2.55 MG/DL 2.41 MG/DL Random Glucose 129 MG/DL 118 MG/DL Calcium Level 9.0 MG/DL 9.1 MG/DL Sodium Level 138 MEQ/L 137 MEQ/L Potassium Level 4.5 MEQ/L 4.4 MEQ/L Chloride Level 100 MEQ/L 99 MEQ/L Carbon Dioxide Level 27.0 MEQ/L 28.3 MEQ/L Anion Gap 11 MEQ/L 10 MEQ/L Estimat Glomerular Filtration Rate 30 ML/MIN 32 ML/MIN Imaging Last Impressions Lower Extremity Ultrasound 10/30/17 0000 Signed Impressions: CONCLUSION: 1. Extensive subcutaneous edema. No drainable fluid collections identified. Chest X-Ray 10/30/17 0000 Signed Impressions: CONCLUSION: Cardiomegaly. Postoperative median sternotomy. No focal infiltrate or significa nt effusion. Physical Exam CONSTITUTIONAL/GENERAL: This is a morbidly obese patient, in no apparent distress. TUBES/LINES/DRAINS: SKIN: No jaundice, Skin temperature appropriate. Not diaphoretic. RLE erythema, edema improved R hallux with denuded skin LLE exquisetely tender to palpation; very erythematous with tight edema CARDIOVASCULAR: Regular rate and rhythm without murmurs, gallops, or rubs. No JVD. Peripheral pulses symmetric. RESPIRATORY/CHEST: Symmetric, unlabored respirations. Clear to auscultation. Breath sounds equal bilaterally. No wheezes, rales, or rhonchi. GASTROINTESTINAL: Abdomen soft, non-tender, nondistended. No hepato-splenomegaly , or palpable masses. No guarding. Bowel sounds present. GENITOURINARY: Without palpable bladder distension. MUSCULOSKELETAL: Extremities without clubbing, cyanosis, Massive edema., much improved erythema drawing tender to palpation NEUROLOGICAL: Awake and alert. Motor and sensory grossly within normal limits. Follows commands. Clear speech. Moves all extremities. PSYCHIATRIC: No obvious anxiety/depression. no apparent hallucinations or other psychotic thought process. Assessment & Plan Remarks Morbid obesity with chronic venostasis BLE cellulitis, LLE persistently infected PSAE from R hallux wound - doubt clinical signioficance - wound was not purulent and GNB can reperesent colonisation CKD, advanced Low grade coag neg staph bacteremia, doubt clinical signioficance cont daptomycin: (ACP: concern of worsening of renale fnx) anticipate transition to oral abx prior to dc Needs more improvement before consider for d/c KEEP BLE above heart level Discussed Condition With Dr Vasquez family @ b/s Nakita Hillman MD Nov 03, 2017 23:37
[2017-11-04] VITALS (9 sets, daily range): BP systolic 90–128; BP diastolic 50–63; PULSE 77–108; RESP 18–24; TEMP 96.8–98.4; O2SAT 95–97
--- NOTE | 2017-11-04 01:31 | RADRPT ---
EXAM DATE: 11/04/2017 12:53 AM EDT AGE/SEX: 81 years / Male INDICATIONS: Altered mental status. CLINICAL DATA: This is the patient's initial encounter. Patient reports that signs and symptoms have been present for 1 day and indicates a pain score of 0/10. MEDICAL/SURGICAL HISTORY: Stroke. Cardiovascular disease. Hypertension. DVT, GERD. Craniotomy. CABG. Umbilical hernia repair. RADIATION DOSE: 66.34 CTDI (mGy) COMPARISON: [facility], CT BRAIN W/O CONTRAST, 05/22/2017. . TECHNIQUE: CT of the head without contrast. Using automated exposure control and adjustment of the mA and/or kV according to patient size, radiation dose was kept as low as reasonably achievable to ob tain optimal diagnostic quality images. FINDINGS: Cerebrum: Periventricular white matter hypodensities bilaterally indicating chronic small vessel isc hemic change. 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 The ventricles are normal for age. N o evidence of midline shift, mass lesion, hemorrhage or acute infarction. No extraaxial fluid collec tions are seen. Posterior Fossa: The cerebellum and brainstem are intact. The 4th ventricle is midline. The cerebe llopontine angle is unremarkable. Extracranial: The visualized portion of the orbits is intact. Skull: Postsurgical findings in the left frontoparietal region. CONCLUSION: 1. Chronic ischemic findings. 2. No acute intracranial findings identified. Electronically signed by: Paulo Beltrán MD 11/04/2017 1:30 AM EDT
[2017-11-04] MEDS: oxyCODONE/ACETAMINOPHEN 10 MG/325 MG TAB PO PRN ×2 (03:02→09:47)
[2017-11-04 06:56] LABS: INTERNATIONAL NORMALIZED RATIO 3.3 RATIO; PROTHROMBIN TIME - PATIENT 32.8 SEC (9.8-11.6)
[2017-11-04 07:15] LABS: ALBUMIN 2.3 GM/DL (3.4-5.0); CALCIUM 8.7 MG/DL (8.5-10.1); CREATININE 2.58 MG/DL (0.60-1.30)
[2017-11-04 07:16] LABS: PHOSPHORUS 3.1 MG/DL (2.5-4.9)
[2017-11-04] MEDS: LOSARTAN 50 MG TAB PO SCH (09:00)
[2017-11-04] MEDS: METOPROLOL TARTRATE 100 MG TAB PO SCH ×2 (09:00→20:21)
--- NOTE | 2017-11-04 09:14 | RADRPT ---
EXAM DATE: 10/31/2017 12:04 AM EDT AGE/SEX: 81 years / Male INDICATIONS: Evaluate left leg for abscess. CLINICAL DATA: This is the patient's initial encounter. Patient reports that signs and symptoms have been present for 1 day and indicates a pain score of 10/10. Location: Laterality: MEDICAL/SURGICAL HISTORY: . CVA. Afib. GA. Hypertension. CAD. CHF. DVT. . Change hernia. CABG. COMPARISON: No prior exams available for comparison. FINDINGS: There is extensive subcutaneous edema. No loculated fluid to suggest abscess. No soft tissue mass. CONCLUSION: 1. Extensive subcutaneous edema. No loculated fluid to suggest abscess. Electronically signed by: Jareth Moreno MD 10/31/2017 12:30 AM EDT
[2017-11-04] MEDS: DOCUSATE SODIUM 100 MG CAP PO SCH ×2 (09:47→20:21)
[2017-11-04] MEDS: FUROSEMIDE 40 MG TAB PO SCH (09:47)
[2017-11-04] MEDS: PANTOPRAZOLE SOD 40 MG DELAYED RELEASE TAB PO SCH (09:47)
--- NOTE | 2017-11-04 10:50 | HHI.PR ---
Subjective Remarks agreeable to snf. reportedly was confused overnight at his baseline now. Objective Vitals heart irreg lung cta abd s/nt ext right hallux ulceration left [place] ulcerations lower ext lymphedema Vital Signs Date Time Temp Pulse Resp B/P (MAP) Pulse Ox O2 Delivery O2 Flow Rate FiO2 11/04/17 08:00 98.1 98 20 90/50 (63) 96 11/04/17 08:00 94 11/04/17 04:19 97.9 86 18 128/56 (80) 95 11/04/17 04:00 Room Air 11/04/17 03:43 77 11/04/17 00:00 Room Air 11/03/17 23:42 87 11/03/17 23:23 97.7 84 18 116/73 (87) 98 11/03/17 20:44 97.8 103 18 115/57 (76) 98 11/03/17 20:00 Room Air 11/03/17 19:49 95 11/03/17 18:37 Room Air 11/03/17 16:02 98.0 72 20 122/62 (82) 95 11/03/17 16:00 76 11/03/17 12:02 98.4 82 20 131/58 (82) 94 11/03/17 12:00 112 Result Diagram: 11/01/17 0733 11/04/17 0555 Imaging Last Impressions Lower Extremity Ultrasound 10/30/17 0000 Signed Impressions: CONCLUSION: 1. Extensive subcutaneous edema. No drainable fluid collections identified. Chest X-Ray 10/30/17 0000 Signed Impressions: CONCLUSION: Cardiomegaly. Postoperative median sternotomy. No focal infiltrate or significa nt effusion. A/P Problem List: (1) Cellulitis of both lower extremities ICD Codes: L03.115 - Cellulitis of right lower limb; L03.116 - Cellulitis of left lower limb Status: Acute Plan: Patient patient is a 81-year-old male with multiple medical problems including coronary artery disease, status post CABG, atrial fibrillation, CHF, chronic kidney disease stage III, chronic lower extremity edema. Patient has chronic lower extremity lymphedema. Pt reports worsening weakness in his knees over the last few months. Pt reports that a few months ago he was able to ambulate short distances in his home using a walker, but he can NO longer ambulate with the walker. Pt was able to transfer independency to his wheelchair, but more recently his LE weakness has progressed to the point where he has NOT been able to independently transfer for the last few days. Pt reports that [facility] comes to his house to provide lymphedema wraps on Mondays and Fridays. Pt is seen by [facility]. He was recently started on clindamycin. He completed only 2 doses. Pt reports that he has had increased pain and swelling to his left leg, particularly laterally at the left thigh and anteriorly below the left knee. Pt reports that he follows with Sports Medicine, Dr. Polo. Pt reports that earlier in the year he had a steroid injection to his knee which initially helped. Pt had kenalog injection of both knees (06/25/17) with some relief to his knee pain. Pt had kenalog injection of both knees (09/26/17) which pt reports provided some relief. Pt subsequently had right knee Synvisc injection (10/06/17) which pt reports did NOT improve his symptoms. Patient also complains of a blister at his right great toe which has ruptured revealing excoriated skin at the dorsal aspect of the right great toe which the patient characterizes as painful. - comgmt with ID and nephrology - Pt received IV Vancomycin in the ER - Daptomycin (10/30 - present) - Blood Cx (10/30) --> staph coag in one bottle (likely contaminant) - toe wound cx shows pseudomonas - b/l LE soft tissue US (10/30) --> extensive subcutaneous edema, but no drainable fluid collections - b/l LE Venous doppler US (10/30) --> No DVTs - podiatry evaluated the pt and recommending compression and local wound care -will await ID reccs for dc abx to snf hold coumadin and recheck inr. hold arb today for low bp and monitor. pt and agree now to snf. (2) Chronic acquired lymphedema ICD Codes: I89.0 - Lymphedema, not elsewhere classified Status: Acute Plan: - see above (3) Atrial fibrillation ICD Codes: I48.91 - Unspecified atrial fibrillation Status: Chronic Plan: - continue metoprolol 100mg BID -coumadin on hold for high inr (4) CKD (chronic kidney disease) stage 3, GFR 30-59 ml/min ICD Codes: N18.3 - Chronic kidney disease, stage 3 (moderate) Status: Chronic Plan: - (5) HTN (hypertension) ICD Codes: I10 - Essential (primary) hypertension Status: Chronic Plan: above (6) CAD (coronary artery disease) ICD Codes: I25.10 - Atherosclerotic heart disease of [place] coronary artery without angina pectoris Status: Chronic Plan: - metoprolol, lipitor Problem Qualifiers (1) Atrial fibrillation: Qualified Codes: I48.2 - Chronic atrial fibrillation (2) HTN (hypertension): Qualified Codes: I10 - Essential (primary) hypertension (3) CAD (coronary artery disease): Qualified Codes: I25.10 - Atherosclerotic heart disease of [place] coronary artery without angina pectoris Alfonso Asif MD Nov 04, 2017 10:50
--- NOTE | 2017-11-04 10:58 | HHI.NPPN ---
Subjective General Problems: Edema Renal Failure: Chronic, Acute, Stage III Interval History Lying in bed. Renal function overall unchanged. He is non oliguric. (Laisha Licea) Review of Systems Cardiovascular Cardiac: Edema (Laisha Licea) Skin Skin: Lesions, Ulcers (Laisha Licea) Objective Data Data Vital Signs Date Time Temp Pulse Resp B/P (MAP) Pulse Ox O2 Delivery O2 Flow Rate FiO2 11/04/17 08:00 98.1 98 20 90/50 (63) 96 11/04/17 08:00 94 11/04/17 04:19 97.9 86 18 128/56 (80) 95 11/04/17 04:00 Room Air 11/04/17 03:43 77 11/04/17 00:00 Room Air 11/03/17 23:42 87 11/03/17 23:23 97.7 84 18 116/73 (87) 98 11/03/17 20:44 97.8 103 18 115/57 (76) 98 11/03/17 20:00 Room Air 11/03/17 19:49 95 11/03/17 18:37 Room Air 11/03/17 16:02 98.0 72 20 122/62 (82) 95 11/03/17 16:00 76 11/03/17 12:02 98.4 82 20 131/58 (82) 94 11/03/17 12:00 112 (Laisha Licea) -: 11/01/17 0733 11/04/17 0555 Physical Exam General Appearance: No Acute Distress, Comfortable, Obese (Laisha Licea) Eyes Eye Exam: Pupils Equal, Pupils Reactive (Laisha Licea) Throat Throat Exam: Oral Mucosa [place] & Moist (Laisha Licea) Pulmonary Resp Exam: Clear Bilaterally, Breath Sounds Equal (Laisha Licea) Cardiology CV Exam: Normal Sinus Rhythm, Good Perfusion (Laisha Licea) Gastrointestinal/Abdomen GI Exam: Soft, Non-Tender, Bowel Sounds Present (Laisha Licea) Musculoskeletal MS Exam: Joints Intact, Unable to Ambulate, Infections (Laisha Licea) Integumentary Skin Exam: Warm, Dry, Ulcer(s) Skin Remarks erythema and edema to bilateral lower extremities blisters left leg open blister right great toe (Laisha Licea) Extremeties Extremities Exam: Pedal Pulses Palpable, Moderate Edema (Laisha Licea) Neurologic Neuro Exam: Alert, Awake, Oriented, Speech Clear, Moving All Extremities (Laisha Licea) Psychiatric Psych Exam: Appropriate Responses (Laisha Licea) Assessment/Plan Discussed Condition With: Patient, Spouse Assessment Summary: PATO/Acute Renal Failure, Fluid/Volume Overload, Hypertension, Diabetes Mellitus Problem List: (1) Renal failure (ARF), acute on chronic ICD Codes: N17.9 - Acute kidney failure, unspecified; N18.9 - Chronic kidney disease, unspecified Status: Acute Plan: Baseline creatinine 1.6-1.7 PATO most likely due to infection, possibly AIN with recent antibiotic use Renal function is stable. He is non oliguric Tolerating PO, not on IVF On Lasix 40 mg PO daily Continue present medications, avoid nephrotoxins and dose appropriate to renal status (2) Cellulitis of both lower extremities ICD Codes: L03.115 - Cellulitis of right lower limb; L03.116 - Cellulitis of left lower limb Status: Acute Plan: ID and wound following Wound culture with pseudomonas On IV Daptomycin MANOHAR ordered for today (3) HTN (hypertension) ICD Codes: I10 - Essential (primary) hypertension Status: Chronic Plan: Conitnue home medicaitons (4) Atrial fibrillation ICD Codes: I48.91 - Unspecified atrial fibrillation Status: Chronic Plan: Rate controlled On dose adjusted Coumadin, follow INR Currently therapeutic Plan Patient can be discharged from renal standpoint. (Laisha Licea) Plan patient was seen and examined. Agree with above assessment and plan. (Donny Vidal MD) Problem Qualifiers (1) HTN (hypertension): Qualified Codes: I10 - Essential (primary) hypertension (2) Atrial fibrillation: Qualified Codes: I48.2 - Chronic atrial fibrillation Laisha Licea Nov 04, 2017 10:58 Donny Vidal MD Nov 04, 2017 11:40
[2017-11-04] MEDS ORDERED: LACTULOSE SYRUP 20 GM/30 ML CUP PO ONE (11:00)
--- NOTE | 2017-11-04 12:37 | HHI.IDPN ---
Subjective Subjective Remarks Pt having + blood clx / , coag negative staph no fever WBC down co severe LLE soreness he is growing MDRO PSAE along with other jarrod Antibiotics daptomycin Past Medical History morbid obesity chronic venostasis Allergies: Coded Allergies: azithromycin (Verified Allergy, Severe, UNKNOWN, 05/22/17) enalaprilat (Verified Allergy, Severe, FACIAL EDEMA, 05/22/17) penicillin G (Verified Allergy, Severe, ANAPHYLAXIS, 05/22/17) Objective . Vital Signs Date Time Temp Pulse Resp B/P (MAP) Pulse Ox O2 Delivery O2 Flow Rate FiO2 11/04/17 08:00 98.1 98 20 90/50 (63) 96 11/04/17 08:00 94 11/04/17 04:19 97.9 86 18 128/56 (80) 95 11/04/17 04:00 Room Air 11/04/17 03:43 77 11/04/17 00:00 Room Air 11/03/17 23:42 87 11/03/17 23:23 97.7 84 18 116/73 (87) 98 11/03/17 20:44 97.8 103 18 115/57 (76) 98 11/03/17 20:00 Room Air 11/03/17 19:49 95 11/03/17 18:37 Room Air 11/03/17 16:02 98.0 72 20 122/62 (82) 95 11/03/17 16:00 76 . Laboratory Tests Test 11/03/17 13:04 11/04/17 05:55 Blood Urea Nitrogen 55 MG/DL 59 MG/DL Creatinine 2.41 MG/DL 2.58 MG/DL Random Glucose 118 MG/DL 113 MG/DL Calcium Level 9.1 MG/DL 8.7 MG/DL Sodium Level 137 MEQ/L 137 MEQ/L Potassium Level 4.4 MEQ/L 4.5 MEQ/L Chloride Level 99 MEQ/L 100 MEQ/L Carbon Dioxide Level 28.3 MEQ/L 28.0 MEQ/L Anion Gap 10 MEQ/L 9 MEQ/L Estimat Glomerular Filtration Rate 32 ML/MIN 29 ML/MIN Albumin 2.3 GM/DL Phosphorus Level 3.1 MG/DL Imaging Last Impressions Head CT 11/04/17 0000 Signed Impressions: CONCLUSION: 1. Chronic ischemic findings. 2. No acute intracranial findings identified. Lower Extremity Ultrasound 10/30/17 Signed Impressions: CONCLUSION: 1. Extensive subcutaneous edema. No drainable fluid collections identified. Chest X-Ray 10/30/17 Signed Impressions: CONCLUSION: Cardiomegaly. Postoperative median sternotomy. No focal infiltrate or significa nt effusion. Physical Exam CONSTITUTIONAL/GENERAL: This is a morbidly obese patient, in no apparent distress. TUBES/LINES/DRAINS: SKIN: No jaundice, Skin temperature appropriate. Not diaphoretic. RLE erythema, edema improved R hallux with denuded skin LLE exquisetely tender to palpation; very erythematous with tight edema CARDIOVASCULAR: Regular rate and rhythm without murmurs, gallops, or rubs. No JVD. Peripheral pulses symmetric. RESPIRATORY/CHEST: Symmetric, unlabored respirations. Clear to auscultation. Breath sounds equal bilaterally. No wheezes, rales, or rhonchi. GASTROINTESTINAL: Abdomen soft, non-tender, nondistended. No hepato-splenomegaly , or palpable masses. No guarding. Bowel sounds present. MUSCULOSKELETAL: Extremities without clubbing, cyanosis, Massive edema., erythema persists on THe LLE, much better on the RLE, but somewhat better then yday the leg is very tight and tender to touch dry house tender to palpation NEUROLOGICAL: Awake and alert. Motor and sensory grossly within normal limits. Follows commands. Clear speech. Moves all extremities. PSYCHIATRIC: No obvious anxiety/depression. no apparent hallucinations or other psychotic thought process. Assessment & Plan Remarks Morbid obesity with chronic venostasis BLE cellulitis, LLE persistently infected RLE much improved MDRO PSAE from R hallux wound - doubt clinical significance - wound was not purulent and GNB can reperesent colonisation CKD, advanced Low grade coag neg staph bacteremia, doubt clinical signioficance cont daptomycin: (ACP: concern of worsening of renale fnx) anticipate transition to oral abx prior to dc Needs more improvement before consider for d/c KEEP BLE above heart level consider CT w/o contrast vs MRI dw Nakita Brooks MD Nov 04, 2017 12:37
--- NOTE | 2017-11-04 13:17 | RADRPT ---
EXAM DATE: 11/04/2017 11:55 AM EDT AGE/SEX: 81 years / Male INDICATIONS: Bilateral lower extremity lymphedema CLINICAL DATA: This is the patient's initial encounter. Patient reports that signs and symptoms have been present for 1 month and indicates a pain score of 5/10. MEDICAL/SURGICAL HISTORY: . CAD, atrial fibrillation, congestive heart failure, chronic kidney disease stage III, chronic lower extremity edema, hypertension, obesity, obstructive sleep apnea, CVA . CABG, toe amputation, craniotomy, hernia repair COMPARISON: No prior exams available for comparison. TECHNIQUE: Four-cuff ankle and brachial pressures were obtained. Pulse cuff waveform tracings of the ankles were recorded, and ankle-brachial indices were calculated. PRESSURES (mmHg): Brachial (arm) : RIGHT: IV SITE, LEFT: 95 Ankle : RIGHT: 82, LEFT: 77 MANOHAR : RIGHT: 0.86, LEFT: 0.81 TBI : RIGHT: 0.42, LEFT: 0.32 PULSED CUFF WAVEFORMS: Blunted pulse wave amplitudes are noted bilaterally. CONCLUSION: 1. Mild decrease bilateral ABIs consistent with mild arterial insufficiency. 2. Moderate to severe decrease TBI's characteristic of significant small vessel disease of the feet. Electronically signed by: Devon Palacio MD 11/04/2017 1:16 PM EDT
--- NOTE | 2017-11-04 17:01 | PD.WCN.NOT ---
Wound Consult Additional Information: Spoke with KAI Castillo [address] [place] [address] around 1633, MANOHAR resulted, will apply compression wraps tomorrow morning Leonela Stephens [facility] Nov 04, 2017 17:01
[2017-11-04] MEDS: TAMSULOSIN HCL 0.4 MG CAP PO SCH (20:21)
[2017-11-04] MEDS: LACTULOSE SYRUP 20 GM/30 ML CUP PO SCH (20:21)
[2017-11-04] MEDS: ATORVASTATIN 20 MG TAB PO SCH (20:21)
[2017-11-05] VITALS (10 sets, daily range): BP systolic 104–126; BP diastolic 57–68; PULSE 72–112; RESP 20–24; TEMP 97.6–98.7; O2SAT 96–100
[2017-11-05] MEDS: oxyCODONE/ACETAMINOPHEN 10 MG/325 MG TAB PO PRN ×3 (00:33→22:23)
[2017-11-05 06:55] LABS: BICARBONATE 27.2 MEQ/L (21.0-32.0); CALCIUM 8.6 MG/DL (8.5-10.1); CREATININE 2.64 MG/DL (0.60-1.30)
[2017-11-05 07:00] LABS: INTERNATIONAL NORMALIZED RATIO 3.3 RATIO
[2017-11-05] MEDS: LACTULOSE SYRUP 20 GM/30 ML CUP PO SCH ×2 (09:00→21:00)
[2017-11-05] MEDS: METOPROLOL TARTRATE 100 MG TAB PO SCH ×2 (09:00→22:23)
[2017-11-05] MEDS: FUROSEMIDE 40 MG TAB PO SCH (09:09)
[2017-11-05] MEDS: DOCUSATE SODIUM 100 MG CAP PO SCH ×2 (09:10→22:21)
[2017-11-05] MEDS: PANTOPRAZOLE SOD 40 MG DELAYED RELEASE TAB PO SCH (09:10)
--- NOTE | 2017-11-05 09:44 | HHI.PR ---
Subjective Remarks bowels moving. Objective Vitals heart reg lung cta abd s/nt ext lower extremity lymphedema right hallux ulceration. left leg erythema and superficial ulcerations noted. Vital Signs Date Time Temp Pulse Resp B/P (MAP) Pulse Ox O2 Delivery O2 Flow Rate FiO2 11/05/17 08:10 98.7 77 20 104/60 (75) 98 11/05/17 05:00 97.6 86 20 107/57 (74) 96 11/05/17 04:11 88 11/05/17 00:00 97.8 90 24 111/63 (79) 98 11/04/17 23:47 108 11/04/17 20:00 96.8 99 24 98/63 (75) 97 11/04/17 20:00 Room Air 11/04/17 19:49 96 11/04/17 16:00 97.9 78 20 106/57 (73) 97 11/04/17 16:00 86 11/04/17 14:00 86 11/04/17 12:00 89 11/04/17 12:00 98.4 96 20 103/52 (69) 97 Result Diagram: 11/01/17 0733 11/05/17 0515 Imaging Last Impressions Lower Extremity Ultrasound 10/30/17 0000 Signed Impressions: CONCLUSION: 1. Extensive subcutaneous edema. No drainable fluid collections identified. Chest X-Ray 10/30/17 0000 Signed Impressions: CONCLUSION: Cardiomegaly. Postoperative median sternotomy. No focal infiltrate or significa nt effusion. A/P Problem List: (1) Cellulitis of both lower extremities ICD Codes: L03.115 - Cellulitis of right lower limb; L03.116 - Cellulitis of left lower limb Status: Acute Plan: Patient patient is a 81-year-old male with multiple medical problems including coronary artery disease, status post CABG, atrial fibrillation, CHF, chronic kidney disease stage III, chronic lower extremity edema. Patient has chronic lower extremity lymphedema. Pt reports worsening weakness in his knees over the last few months. Pt reports that a few months ago he was able to ambulate short distances in his home using a walker, but he can NO longer ambulate with the walker. Pt was able to transfer independency to his wheelchair, but more recently his LE weakness has progressed to the point where he has NOT been able to independently transfer for the last few days. Pt reports that [facility] comes to his house to provide lymphedema wraps on Mondays and Fridays. Pt is seen by [facility]. He was recently started on clindamycin. He completed only 2 doses. Pt reports that he has had increased pain and swelling to his left leg, particularly laterally at the left thigh and anteriorly below the left knee. Pt reports that he follows with Sports Medicine, Dr. Polo. Pt reports that earlier in the year he had a steroid injection to his knee which initially helped. Pt had kenalog injection of both knees (06/25/17) with some relief to his knee pain. Pt had kenalog injection of both knees (09/26/17) which pt reports provided some relief. Pt subsequently had right knee Synvisc injection (10/06/17) which pt reports did NOT improve his symptoms. Patient also complains of a blister at his right great toe which has ruptured revealing excoriated skin at the dorsal aspect of the right great toe which the patient characterizes as painful. - comgmt with ID and nephrology - Pt received IV Vancomycin in the ER - Daptomycin (10/30 - present) - Blood Cx (10/30) --> staph coag in one bottle (likely contaminant) - toe wound cx shows pseudomonas - b/l LE soft tissue US (10/30) --> extensive subcutaneous edema, but no drainable fluid collections - b/l LE Venous doppler US (10/30) --> No DVTs - podiatry evaluated the pt and recommending compression and local wound care -will await ID reccs for dc abx to snf hold coumadin and recheck inr. hold arb for low bp.. pt and agree now to snf. ID concerned with LLE infection and considering ct vs mri imaging (2) Chronic acquired lymphedema ICD Codes: I89.0 - Lymphedema, not elsewhere classified Status: Acute Plan: - see above (3) Atrial fibrillation ICD Codes: I48.91 - Unspecified atrial fibrillation Status: Chronic Plan: - continue metoprolol 100mg BID -coumadin on hold for high inr (4) CKD (chronic kidney disease) stage 3, GFR 30-59 ml/min ICD Codes: N18.3 - Chronic kidney disease, stage 3 (moderate) Status: Chronic Plan: - (5) HTN (hypertension) ICD Codes: I10 - Essential (primary) hypertension Status: Chronic Plan: above (6) CAD (coronary artery disease) ICD Codes: I25.10 - Atherosclerotic heart disease of [place] coronary artery without angina pectoris Status: Chronic Plan: - metoprolol, lipitor Problem Qualifiers (1) Atrial fibrillation: Qualified Codes: I48.2 - Chronic atrial fibrillation (2) HTN (hypertension): Qualified Codes: I10 - Essential (primary) hypertension (3) CAD (coronary artery disease): Qualified Codes: I25.10 - Atherosclerotic heart disease of [place] coronary artery without angina pectoris Alfonso Asif MD Nov 05, 2017 09:44
--- NOTE | 2017-11-05 11:59 | HHI.NPPN ---
Subjective General Problems: Edema Renal Failure: Chronic, Acute, Stage III Interval History Lying in bed. Has not ambulated. Creatinine is slightly higher today. (Laisha Licea) Review of Systems Cardiovascular Cardiac: Edema (Laisha Licea) Skin Skin: Lesions, Ulcers (Laisha Licea) Objective Data Data Vital Signs Date Time Temp Pulse Resp B/P (MAP) Pulse Ox O2 Delivery O2 Flow Rate FiO2 11/05/17 08:10 98.7 77 20 104/60 (75) 98 11/05/17 05:00 97.6 86 20 107/57 (74) 96 11/05/17 04:11 88 11/05/17 00:00 97.8 90 24 111/63 (79) 98 11/04/17 23:47 108 11/04/17 20:00 96.8 99 24 98/63 (75) 97 11/04/17 20:00 Room Air 11/04/17 19:49 96 11/04/17 16:00 97.9 78 20 106/57 (73) 97 11/04/17 16:00 86 11/04/17 14:00 86 11/04/17 12:00 89 11/04/17 12:00 98.4 96 20 103/52 (69) 97 (Laisha Licea) -: 11/01/17 0733 11/05/17 0515 Imaging Last [address] 11/04/17 0000 Signed Impressions: CONCLUSION: 1. Chronic ischemic findings. 2. No acute intracranial findings identified. Extremity Arterial Study 11/03/17 0000 Signed Impressions: CONCLUSION: 1. Mild decrease bilateral ABIs consistent with mild arterial insufficiency. 2. Moderate to severe decrease TBI's characteristic of significant small vesse l disease of the feet. (Laisha Licea) Physical Exam General Appearance: No Acute Distress, Comfortable, Obese (Laisha Licea) Eyes Eye Exam: Pupils Equal, Pupils Reactive (Lasiha Licea) Throat Throat Exam: Oral Mucosa [place] & Moist (Laisha Licea) Pulmonary Resp Exam: Clear Bilaterally, Breath Sounds Equal (Laisha Licea) Cardiology CV Exam: Normal Sinus Rhythm, Good Perfusion (Laisha Licea) Gastrointestinal/Abdomen GI Exam: Soft, Non-Tender, Bowel Sounds Present (Laisha Licea) Musculoskeletal MS Exam: Joints Intact, Unable to Ambulate, Infections (Laisha Licea) Integumentary Skin Exam: Warm, Dry, Ulcer(s) Skin Remarks erythema and edema to bilateral lower extremities blisters left leg open blister right great toe (Laisha Licea) Extremeties Extremities Exam: Pedal Pulses Palpable, Moderate Edema, Dependent Edema (Laisha Licea) Neurologic Neuro Exam: Alert, Awake, Oriented, Speech Clear, Moving All Extremities (Laisha Licea) Psychiatric Psych Exam: Appropriate Responses (Laisha Licea) Assessment/Plan Discussed Condition With: Patient, Spouse Assessment Summary: PATO/Acute Renal Failure, Fluid/Volume Overload, Hypertension, Diabetes Mellitus Problem List: (1) Renal failure (ARF), acute on chronic ICD Codes: N17.9 - Acute kidney failure, unspecified; N18.9 - Chronic kidney disease, unspecified Status: Acute Plan: Baseline creatinine 1.6-1.7 PATO most likely due to infection, possibly AIN with recent antibiotic use Renal function is slightly worse. He is non oliguric.On Lasix 40 mg PO daily Continue present medications, avoid nephrotoxins and dose appropriate to renal status We will follow in CKD clinic after discharge. (2) Cellulitis of both lower extremities ICD Codes: L03.115 - Cellulitis of right lower limb; L03.116 - Cellulitis of left lower limb Status: Acute Plan: ID and wound following Wound culture with pseudomonas On IV Daptomycin MANOHAR: arterial insufficiency bilaterally (3) HTN (hypertension) ICD Codes: I10 - Essential (primary) hypertension Status: Chronic Plan: Continue present medications (4) Atrial fibrillation ICD Codes: I48.91 - Unspecified atrial fibrillation Status: Chronic Plan: Rate controlled On dose adjusted Coumadin, follow INR Currently elevated Plan . (Laisha Licea) Plan patient was seen and examined. Renal function is slightly worse. No need for dialysis. Continue therapy. Prognosis is guarded. He can be discharged from renal standpoint. (Donny Vidal MD) Problem Qualifiers (1) HTN (hypertension): Qualified Codes: I10 - Essential (primary) hypertension (2) Atrial fibrillation: Qualified Codes: I48.2 - Chronic atrial fibrillation Laisha Licea Nov 05, 2017 11:59 Donny Vidal MD Nov 06, 2017 09:16
--- NOTE | 2017-11-05 15:43 | PD.WCN.NOT ---
Wound Consult Description: Arpan seen for triple layer compression evaluation for BLE per Doctor Holden order. Communicated with: KAI Deal [address] north, Doctor Yefri, and call placed to Doctor Holden Recommendation: Please keep Mead boot to RLE in place,If patient complains of tightness,Please elevate BLE above heart, and OK to Cut Mead boot ~2cm on each side of the leg and foot if patient complains of increased pain and discomfort, please remove and call wound care. Wound care will apply Mead boot per Doctor Holden's orders Please leave Optilock dressing secured with rolled gauze and tape in place to LLE and change as needed for saturation or dislodgement. Cleanse wound to L casillas with normal saline and pat dry before applying clean dressing.. Additional Information: Patient was seen today around 1245 following MANOHAR results for evaluation of compression therapy using triple layer compression. Patient is considered safe for high compression with MANOHAR score of 0.86 to L leg and 0.81 to R leg. Patient LLE is presenting today with erythema and firm non pitting edema.Skin feels hot to touch. Patient complains of 10/10 pain when pressure is applied to LLE. KAI Deal medicated patient for pain at 1155. Due to erythema, increased edema, and pain to LLE did not apply compression wrap to LLE. Removed dressing saturated bordered gauze dressing to LLE reveal wound that measures ~2cm x ~1cm x ~<0.1cm that is draining moderate yellow thin watery drainage. Drainage has no foul odor. Wound was cleansed with normal saline before covering wound to optilock dressing and securing with light wrapping of rolled gauze and tape. Removed dislodged dressing to R great toe to reveal wound that presents with clean red non granulation tissue and moderate sero-sanguinous drainage, wound has no foul odor. Wound measures ~3.5cmx ~4cm x ~0.1cm . Wound was cleansed with normal saline and patted dry. Applied maxorb extra AG and secured dressing with dry 4x4 gauze and paper tape.Mead boot was applied as follows, applied Unnas boot with zinc and calamine as first layer then secured with rolled gauze , Coban was then applied as the final layer just two finger widths below the knee. Patient tolerated fairly. Stephens,Leonela [facility] Nov 05, 2017 15:43
[2017-11-05] MEDS: TAMSULOSIN HCL 0.4 MG CAP PO SCH (22:22)
[2017-11-05] MEDS: ATORVASTATIN 20 MG TAB PO SCH (22:23)
[2017-11-05] MEDS: DAPTOmycin INJ 1,000 MG in SODIUM CHLORIDE 0.9% INJ 100 ML IV SCH (22:24)
[2017-11-06] VITALS (10 sets, daily range): BP systolic 99–113; BP diastolic 50–62; PULSE 73–108; RESP 17–20; TEMP 97.3–98.3; O2SAT 95–100
[2017-11-06 05:53] LABS: INTERNATIONAL NORMALIZED RATIO 3.4 RATIO; PROTHROMBIN TIME - PATIENT 34.1 SEC (9.8-11.6)
[2017-11-06] MEDS: METOPROLOL TARTRATE 100 MG TAB PO SCH ×2 (08:18→21:31)
[2017-11-06] MEDS: LACTULOSE SYRUP 20 GM/30 ML CUP PO SCH (08:18)
[2017-11-06] MEDS: PANTOPRAZOLE SOD 40 MG DELAYED RELEASE TAB PO SCH (08:52)
[2017-11-06] MEDS: FUROSEMIDE 40 MG TAB PO SCH (08:53)
[2017-11-06] MEDS: DOCUSATE SODIUM 100 MG CAP PO SCH ×2 (08:56→21:00)
[2017-11-06] MEDS: oxyCODONE/ACETAMINOPHEN 10 MG/325 MG TAB PO PRN ×2 (09:03→19:08)
--- NOTE | 2017-11-06 09:58 | HHI.PR ---
Subjective Remarks pt thinks the pain in left leg is better. Objective Vitals heart reg lung cta abd s/nt ext rle compression wraps of foot up to knee lle. swollen and tender from foot to thigh. Vital Signs Date Time Temp Pulse Resp B/P (MAP) Pulse Ox O2 Delivery O2 Flow Rate FiO2 11/06/17 08:15 98.3 73 20 104/59 (74) 97 11/06/17 08:00 Room Air 11/06/17 04:00 97.4 101 18 112/62 (79) 98 11/06/17 04:00 107 11/06/17 00:00 97.3 108 18 102/58 (73) 98 11/06/17 00:00 97 11/05/17 20:00 Room Air 11/05/17 20:00 98.5 105 20 126/60 (82) 98 11/05/17 20:00 112 11/05/17 16:20 97.8 85 20 125/65 (85) 100 11/05/17 16:14 72 11/05/17 12:00 103 11/05/17 11:55 98.5 90 20 112/68 (83) 97 Result Diagram: 11/05/17 0515 Imaging Last Impressions Lower Extremity Ultrasound 10/30/17 0000 Signed Impressions: CONCLUSION: 1. Extensive subcutaneous edema. No drainable fluid collections identified. Chest X-Ray 10/30/17 0000 Signed Impressions: CONCLUSION: Cardiomegaly. Postoperative median sternotomy. No focal infiltrate or significa nt effusion. A/P Problem List: (1) Cellulitis of both lower extremities ICD Codes: L03.115 - Cellulitis of right lower limb; L03.116 - Cellulitis of left lower limb Status: Acute Plan: Patient patient is a 81-year-old male with multiple medical problems including coronary artery disease, status post CABG, atrial fibrillation, CHF, chronic kidney disease stage III, chronic lower extremity edema. Patient has chronic lower extremity lymphedema. Pt reports worsening weakness in his knees over the last few months. Pt reports that a few months ago he was able to ambulate short distances in his home using a walker, but he can NO longer ambulate with the walker. Pt was able to transfer independency to his wheelchair, but more recently his LE weakness has progressed to the point where he has NOT been able to independently transfer for the last few days. Pt reports that [facility] comes to his house to provide lymphedema wraps on Mondays and Fridays. Pt is seen by [facility]. He was recently started on clindamycin. He completed only 2 doses. Pt reports that he has had increased pain and swelling to his left leg, particularly laterally at the left thigh and anteriorly below the left knee. Pt reports that he follows with Sports Medicine, Dr. Polo. Pt reports that earlier in the year he had a steroid injection to his knee which initially helped. Pt had kenalog injection of both knees (06/25/17) with some relief to his knee pain. Pt had kenalog injection of both knees (09/26/17) which pt reports provided some relief. Pt subsequently had right knee Synvisc injection (10/06/17) which pt reports did NOT improve his symptoms. Patient also complains of a blister at his right great toe which has ruptured revealing excoriated skin at the dorsal aspect of the right great toe which the patient characterizes as painful. - comgmt with ID and nephrology - Pt received IV Vancomycin in the ER - Daptomycin (10/30 - present) - Blood Cx (10/30) --> staph coag in one bottle (likely contaminant) - toe wound cx shows pseudomonas and mdr.. - b/l LE soft tissue US (10/30) --> extensive subcutaneous edema, but no drainable fluid collections - b/l LE Venous doppler US (10/30) --> No DVTs - podiatry evaluated the pt and recommending compression and local wound care - discussed with ID. recc. imaging study of LLE for persistent pain and swelling. unable to give contrast. hold coumadin and recheck inr. hold arb for low bp.. pt and agree now to snf. (2) Chronic acquired lymphedema ICD Codes: I89.0 - Lymphedema, not elsewhere classified Status: Acute Plan: - see above (3) Atrial fibrillation ICD Codes: I48.91 - Unspecified atrial fibrillation Status: Chronic Plan: - continue metoprolol 100mg BID -coumadin on hold for high inr (4) CKD (chronic kidney disease) stage 3, GFR 30-59 ml/min ICD Codes: N18.3 - Chronic kidney disease, stage 3 (moderate) Status: Chronic Plan: - (5) HTN (hypertension) ICD Codes: I10 - Essential (primary) hypertension Status: Chronic Plan: above (6) CAD (coronary artery disease) ICD Codes: I25.10 - Atherosclerotic heart disease of [place] coronary artery without angina pectoris Status: Chronic Plan: - metoprolol, lipitor Problem Qualifiers (1) Atrial fibrillation: Qualified Codes: I48.2 - Chronic atrial fibrillation (2) HTN (hypertension): Qualified Codes: I10 - Essential (primary) hypertension (3) CAD (coronary artery disease): Qualified Codes: I25.10 - Atherosclerotic heart disease of [place] coronary artery without angina pectoris Alfonso Asif MD Nov 06, 2017 09:58
--- NOTE | 2017-11-06 11:41 | HHI.NPPN ---
Subjective General Problems: Edema Renal Failure: Chronic, Acute, Stage III Interval History Lying in bed. No new concerns or developments. (Laisha Licea) Review of Systems Cardiovascular Cardiac: Edema (Laisha Licea) Skin Skin: Lesions, Ulcers (Laisha Licea) Objective Data Data Vital Signs Date Time Temp Pulse Resp B/P (MAP) Pulse Ox O2 Delivery O2 Flow Rate FiO2 11/06/17 08:15 98.3 73 20 104/59 (74) 97 11/06/17 08:00 Room Air 11/06/17 04:00 97.4 101 18 112/62 (79) 98 11/06/17 04:00 107 11/06/17 00:00 97.3 108 18 102/58 (73) 98 11/06/17 00:00 97 11/05/17 20:00 Room Air 11/05/17 20:00 98.5 105 20 126/60 (82) 98 11/05/17 20:00 112 11/05/17 16:20 97.8 85 20 125/65 (85) 100 11/05/17 16:14 72 11/05/17 12:00 103 11/05/17 11:55 98.5 90 20 112/68 (83) 97 (Laisha Licea) -: 11/05/17 0515 Imaging Last [address] 11/04/17 0000 Signed Impressions: CONCLUSION: 1. Chronic ischemic findings. 2. No acute intracranial findings identified. (Laisha Licea) Physical Exam General Appearance: No Acute Distress, Comfortable, Obese (Laisha Licea) Eyes Eye Exam: Pupils Equal, Pupils Reactive (Laisha Licea) Throat Throat Exam: Oral Mucosa [place] & Moist (Laisha Licea) Pulmonary Resp Exam: Clear Bilaterally, Breath Sounds Equal (Laisha Licea) Cardiology CV Exam: Normal Sinus Rhythm, Good Perfusion (Laisha Licea) Gastrointestinal/Abdomen GI Exam: Soft, Non-Tender, Bowel Sounds Present (Laisha Licea) Musculoskeletal MS Exam: Joints Intact, Unable to Ambulate, Infections (Laisha Licea) Integumentary Skin Exam: Warm, Dry, Ulcer(s) Skin Remarks erythema and edema to bilateral lower extremities blisters left leg open blister right great toe (Laisha Licea) Extremeties Extremities Exam: Pedal Pulses Palpable, Moderate Edema, Dependent Edema (Laisha Licea) Neurologic Neuro Exam: Alert, Awake, Oriented, Speech Clear, Moving All Extremities (Laisha Licea) Psychiatric Psych Exam: Appropriate Responses (Laisha Licea) Assessment/Plan Discussed Condition With: Patient, Spouse Assessment Summary: PATO/Acute Renal Failure, Fluid/Volume Overload, Hypertension, Diabetes Mellitus Problem List: (1) Renal failure (ARF), acute on chronic ICD Codes: N17.9 - Acute kidney failure, unspecified; N18.9 - Chronic kidney disease, unspecified Status: Acute Plan: Baseline creatinine 1.6-1.7 PATO most likely due to infection, possibly AIN with recent antibiotic use Renal function had declined, today's labs in process He is non oliguric.On Lasix 40 mg PO daily Continue present medications, avoid nephrotoxins and dose appropriate to renal status Obtain daily labs Needs PT/OT as he is severely deconditioned We will follow in CKD clinic if discharged. (2) Cellulitis of both lower extremities ICD Codes: L03.115 - Cellulitis of right lower limb; L03.116 - Cellulitis of left lower limb Status: Acute Plan: ID and wound following Wound culture with pseudomonas On IV Daptomycin MANOHAR: arterial insufficiency bilaterally CT ordered left leg to evaluate edema (3) HTN (hypertension) ICD Codes: I10 - Essential (primary) hypertension Status: Chronic Plan: Continue present medications (4) Atrial fibrillation ICD Codes: I48.91 - Unspecified atrial fibrillation Status: Chronic Plan: Rate controlled On dose adjusted Coumadin, follow INR Currently elevated Plan (Laisha Licea) Plan patient was seen and examined. Renal function is stable. He can be discharged from renal standpoint. No immediate need for dialysis. (Donny Vidal MD) Problem Qualifiers (1) HTN (hypertension): Qualified Codes: I10 - Essential (primary) hypertension (2) Atrial fibrillation: Qualified Codes: I48.2 - Chronic atrial fibrillation Laisha Licea Nov 06, 2017 11:41 Donny Vidal MD Nov 06, 2017 20:22
[2017-11-06 12:16] LABS: BICARBONATE 29.1 MEQ/L (21.0-32.0); CALCIUM 8.8 MG/DL (8.5-10.1); CREATININE 2.58 MG/DL (0.60-1.30)
--- NOTE | 2017-11-06 15:40 | HHI.IDPN ---
Subjective Subjective Remarks Pt having + blood clx 1/4 , coag negative staph no fever WBC down co severe LLE soreness he is growing MDRO PSAE along with other jarrod from R foot Clearly less coherent today Antibiotics daptomycin Past Medical History morbid obesity chronic venostasis Allergies: Coded Allergies: azithromycin (Verified Allergy, Severe, UNKNOWN, 05/22/17) enalaprilat (Verified Allergy, Severe, FACIAL EDEMA, 05/22/17) penicillin G (Verified Allergy, Severe, ANAPHYLAXIS, 05/22/17) Objective . Vital Signs Date Time Temp Pulse Resp B/P (MAP) Pulse Ox O2 Delivery O2 Flow Rate FiO2 11/06/17 12:30 98.2 80 20 106/50 (68) 98 11/06/17 08:15 98.3 73 20 104/59 (74) 97 11/06/17 08:00 Room Air 11/06/17 04:00 97.4 101 18 112/62 (79) 98 11/06/17 04:00 107 11/06/17 00:00 97.3 108 18 102/58 (73) 98 11/06/17 00:00 97 11/05/17 20:00 Room Air 11/05/17 20:00 98.5 105 20 126/60 (82) 98 11/05/17 20:00 112 11/05/17 16:20 97.8 85 20 125/65 (85) 100 11/05/17 16:14 72 . Laboratory Tests Test 11/05/17 05:15 11/06/17 11:30 Blood Urea Nitrogen 58 MG/DL 61 MG/DL Creatinine 2.64 MG/DL 2.58 MG/DL Random Glucose 109 MG/DL 122 MG/DL Calcium Level 8.6 MG/DL 8.8 MG/DL Sodium Level 139 MEQ/L 138 MEQ/L Potassium Level 4.5 MEQ/L 4.2 MEQ/L Chloride Level 102 MEQ/L 100 MEQ/L Carbon Dioxide Level 27.2 MEQ/L 29.1 MEQ/L Anion Gap 10 MEQ/L 9 MEQ/L Estimat Glomerular Filtration Rate 28 ML/MIN 29 ML/MIN Imaging Last Impressions Head CT 11/04/17 0000 Signed Impressions: CONCLUSION: 1. Chronic ischemic findings. 2. No acute intracranial findings identified. Lower Extremity Ultrasound 10/30/17 0000 Signed Impressions: CONCLUSION: 1. Extensive subcutaneous edema. No drainable fluid collections identified. Chest X-Ray 10/30/17 0000 Signed Impressions: CONCLUSION: Cardiomegaly. Postoperative median sternotomy. No focal infiltrate or significa nt effusion. Physical Exam CONSTITUTIONAL/GENERAL: This is a morbidly obese patient, in no apparent distress. TUBES/LINES/DRAINS: SKIN: No jaundice, Skin temperature appropriate. Not diaphoretic. RLE erythema, edema improved R hallux with denuded skin LLE exquisetely tender to palpation; very erythematous with tight edema CARDIOVASCULAR: Regular rate and rhythm without murmurs, gallops, or rubs. No JVD. Peripheral pulses symmetric. RESPIRATORY/CHEST: Symmetric, unlabored respirations. Clear to auscultation. Breath sounds equal bilaterally. No wheezes, rales, or rhonchi. GASTROINTESTINAL: Abdomen soft, non-tender, nondistended. No hepato-splenomegaly , or palpable masses. No guarding. Bowel sounds present. MUSCULOSKELETAL: Extremities without clubbing, cyanosis, Massive edema., erythema persists on THe LLE, much better on the RLE, but somewhat better then yday the leg still quite tight , but less tender to touch + erythematous benzol still operator to palpation NEUROLOGICAL: Awake and alert. Motor and sensory grossly within normal limits. Follows commands. Confused. Moves all extremities. PSYCHIATRIC: No obvious anxiety/depression. no apparent hallucinations or other psychotic thought process. Assessment & Plan Remarks Morbid obesity with chronic venostasis BLE cellulitis, LLE persistently infected RLE much improved MDRO PSAE from R hallux wound - doubt clinical significance - wound was not purulent and GNB can reperesent colonisation CKD, advanced Low grade coag neg staph bacteremia, doubt clinical signioficance ? MS louis pizano leukocytosis - resolved cont daptomycin: (ACP: concern of worsening of renale fnx) anticipate transition to oral abx prior to dc Needs more improvement before consider for d/c KEEP BLE above heart level dw Nakita Gayle MD Nov 06, 2017 15:40
--- NOTE | 2017-11-06 19:55 | RADRPT ---
EXAM DATE: 11/06/2017 7:45 PM EDT AGE/SEX: 81 years / Male INDICATIONS: Swelling. CLINICAL DATA: This is the patient's initial encounter. Patient reports that signs and symptoms have been present for 1 day and indicates a pain score of 5/10. MEDICAL/SURGICAL HISTORY: Cardiovascular disease. Deep venous thrombosis. . RADIATION DOSE: 17.23 CTDI (mGy) COMPARISON: No prior exams available for comparison. TECHNIQUE: Multiple contiguous axial images were acquired using a multirow detector CT scanner witho ut contrast. Multiplanar reconstruction was performed in the sagittal and coronal planes. Using aut omated exposure control and adjustment of the mA and/or kV according to patient size, radiation dose was kept as low as reasonably achievable to obtain optimal diagnostic quality images. FINDINGS: Bones: The bony structures about the forefoot are in normal alignment. The metatarsi, phalanges, an d distal tarsal row osseous structures are intact. No fracture is seen. Degenerative changes of the left hip. Joints: No significant arthropathy or bony hypertrophy is seen. Soft Tissues: Diffuse soft tissue swelling. Other: No foreign bodies seen. CONCLUSION: 1. Diffuse soft tissue swelling likely edema. 2. No acute bony abnormalities. 3. Prominent degenerative changes left hip. Electronically signed by: Evelio Duran MD 11/06/2017 7:54 PM EDT
--- NOTE | 2017-11-06 19:57 | RADRPT ---
EXAM DATE: 11/06/2017 7:47 PM EDT AGE/SEX: 81 years / Male INDICATIONS: Swelling. CLINICAL DATA: This is the patient's initial encounter. Patient reports that signs and symptoms have been present for 1 day and indicates a pain score of 5/10. MEDICAL/SURGICAL HISTORY: Cardiovascular disease. Deep venous thrombosis. . RADIATION DOSE: 13.04 CTDI (mGy) COMPARISON: No prior exams available for comparison. TECHNIQUE: Multiple contiguous axial images were acquired using a multi-row detector CT scanner w ithout contrast. Multiplanar reconstruction was performed in the sagittal and coronal planes. Using automated exposure control and adjustment of the mA and/or kV according to patient size, radiation do se was kept as low as reasonably achievable to obtain optimal diagnostic quality images. FINDINGS: Bones: The bony structures are intact. No fracture is seen. Prominent degenerative changes of the an kle Joints: No significant arthropathy seen. Soft Tissues: Diffuse soft tissue swelling Other: No foreign bodies seen. CONCLUSION: 1. Diffuse soft tissue swelling likely edema. 2. Degenerative changes of the ankle. Electronically signed by: Evelio Duran MD 11/06/2017 7:56 PM EDT
[2017-11-06] MEDS: TAMSULOSIN HCL 0.4 MG CAP PO SCH (21:31)
[2017-11-06] MEDS: ATORVASTATIN 20 MG TAB PO SCH (21:31)
[2017-11-07] VITALS (8 sets, daily range): BP systolic 103–125; BP diastolic 49–70; PULSE 67–105; RESP 16–19; TEMP 97.6–98.8; O2SAT 94–97
[2017-11-07] MEDS: oxyCODONE/ACETAMINOPHEN 10 MG/325 MG TAB PO PRN ×3 (00:29→16:00)
[2017-11-07 07:03] LABS: INTERNATIONAL NORMALIZED RATIO 2.9 RATIO; PROTHROMBIN TIME - PATIENT 29.7 SEC (9.8-11.6)
[2017-11-07 07:23] LABS: ALBUMIN 2.2 GM/DL (3.4-5.0); BICARBONATE 28.2 MEQ/L (21.0-32.0); CALCIUM 8.8 MG/DL (8.5-10.1); CREATININE 2.55 MG/DL (0.60-1.30); DIRECT BILIRUBIN ADULT 0.7 MG/DL (0.0-0.2)
[2017-11-07 07:24] LABS: PHOSPHORUS 3.4 MG/DL (2.5-4.9)
[2017-11-07 07:26] LABS: INDIRECT BILIRUBIN 0.5 MG/DL (0.0-0.8); TOTAL BILIRUBIN ADULT 1.2 MG/DL (0.2-1.0); TOTAL PROTEIN 6.8 GM/DL (6.4-8.2)
[2017-11-07] MEDS: METOPROLOL TARTRATE 100 MG TAB PO SCH ×2 (10:20→22:10)
[2017-11-07] MEDS: FUROSEMIDE 40 MG TAB PO SCH (10:20)
[2017-11-07] MEDS: DOCUSATE SODIUM 100 MG CAP PO SCH ×2 (10:21→22:08)
[2017-11-07] MEDS: PANTOPRAZOLE SOD 40 MG DELAYED RELEASE TAB PO SCH (10:21)
--- NOTE | 2017-11-07 11:13 | HHI.PR ---
Subjective Remarks pt more lucid today. present. pt and think his left leg looks better but still very tender. Objective Vitals heart reg lung cta abd s/nt ext left thigh and lower ext lymphedema/tenderness rle compression wraps. Vital Signs Date Time Temp Pulse Resp B/P (MAP) Pulse Ox O2 Delivery O2 Flow Rate FiO2 11/07/17 08:00 83 11/07/17 08:00 97.6 104 18 121/61 (81) 96 11/07/17 04:10 67 11/07/17 04:00 98.4 85 16 107/52 (70) 97 11/07/17 02:50 84 11/07/17 01:39 18 11/07/17 00:00 98.8 100 16 115/70 (85) 96 11/06/17 23:54 96 11/06/17 22:20 Room Air 11/06/17 20:00 98.2 102 17 99/54 (69) 100 11/06/17 19:46 99 11/06/17 16:00 Room Air 11/06/17 15:55 103 11/06/17 15:55 98.2 83 20 113/53 (73) 95 11/06/17 12:30 98.2 80 20 106/50 (68) 98 11/06/17 12:00 Room Air 11/06/17 11:42 79 Result Diagram: 11/07/17 0548 Imaging Last Impressions Lower Extremity Ultrasound 10/30/17 0000 Signed Impressions: CONCLUSION: 1. Extensive subcutaneous edema. No drainable fluid collections identified. Chest X-Ray 10/30/17 0000 Signed Impressions: CONCLUSION: Cardiomegaly. Postoperative median sternotomy. No focal infiltrate or significa nt effusion. A/P Problem List: (1) Cellulitis of both lower extremities ICD Codes: L03.115 - Cellulitis of right lower limb; L03.116 - Cellulitis of left lower limb Status: Acute Plan: Patient patient is a 81-year-old male with multiple medical problems including coronary artery disease, status post CABG, atrial fibrillation, CHF, chronic kidney disease stage III, chronic lower extremity edema. Patient has chronic lower extremity lymphedema. Pt reports worsening weakness in his knees over the last few months. Pt reports that a few months ago he was able to ambulate short distances in his home using a walker, but he can NO longer ambulate with the walker. Pt was able to transfer independency to his wheelchair, but more recently his LE weakness has progressed to the point where he has NOT been able to independently transfer for the last few days. Pt reports that [facility] comes to his house to provide lymphedema wraps on Mondays and Fridays. Pt is seen by [facility]. He was recently started on clindamycin. He completed only 2 doses. Pt reports that he has had increased pain and swelling to his left leg, particularly laterally at the left thigh and anteriorly below the left knee. Pt reports that he follows with Sports Medicine, Dr. Polo. Pt reports that earlier in the year he had a steroid injection to his knee which initially helped. Pt had kenalog injection of both knees (06/25/17) with some relief to his knee pain. Pt had kenalog injection of both knees (09/26/17) which pt reports provided some relief. Pt subsequently had right knee Synvisc injection (10/06/17) which pt reports did NOT improve his symptoms. Patient also complains of a blister at his right great toe which has ruptured revealing excoriated skin at the dorsal aspect of the right great toe which the patient characterizes as painful. - comgmt with ID and nephrology - Pt received IV Vancomycin in the ER - Daptomycin (10/30 - present) - Blood Cx (10/30) --> staph coag in one bottle (likely contaminant) - toe wound cx shows pseudomonas and mdr.. - b/l LE soft tissue US (10/30) --> extensive subcutaneous edema, but no drainable fluid collections - b/l LE Venous doppler US (10/30) --> No DVTs - podiatry evaluated the pt and recommending compression and local wound care - discussed with ID. recc. imaging study of LLE for persistent pain and swelling. noncontrast CT left leg shows diffuse swelling hold coumadin and recheck inr. hold arb for low bp.. pt and agree now to snf. called [facility] to find out about getting lymphedema wraps at snf. (2) Chronic acquired lymphedema ICD Codes: I89.0 - Lymphedema, not elsewhere classified Status: Acute Plan: - see above (3) Atrial fibrillation ICD Codes: I48.91 - Unspecified atrial fibrillation Status: Chronic Plan: - continue metoprolol 100mg BID -coumadin on hold for high inr (4) CKD (chronic kidney disease) stage 3, GFR 30-59 ml/min ICD Codes: N18.3 - Chronic kidney disease, stage 3 (moderate) Status: Chronic Plan: - (5) HTN (hypertension) ICD Codes: I10 - Essential (primary) hypertension Status: Chronic Plan: above (6) CAD (coronary artery disease) ICD Codes: I25.10 - Atherosclerotic heart disease of [place] coronary artery without angina pectoris Status: Chronic Plan: - metoprolol, lipitor Problem Qualifiers (1) Atrial fibrillation: Qualified Codes: I48.2 - Chronic atrial fibrillation (2) HTN (hypertension): Qualified Codes: I10 - Essential (primary) hypertension (3) CAD (coronary artery disease): Qualified Codes: I25.10 - Atherosclerotic heart disease of [place] coronary artery without angina pectoris Alfonso Asif MD Nov 07, 2017 11:12
--- NOTE | 2017-11-07 15:04 | HHI.NPPN ---
Subjective General Problems: Edema Renal Failure: Chronic, Acute, Stage III Interval History He had therapy today. Creatinine is stable, slightly better. (Laisha Licea) Review of Systems Cardiovascular Cardiac: Edema (Laisha Licea) Skin Skin: Lesions, Ulcers (Laisha Licea) Objective Data Data 11/07/17 11/08/17 19:00 07:00 # Voids 4 # Bowel Movements 1 Vital Signs Date Time Temp Pulse Resp B/P (MAP) Pulse Ox O2 Delivery O2 Flow Rate FiO2 11/07/17 12:00 95 11/07/17 12:00 98.6 101 18 125/49 (74) 96 11/07/17 08:00 83 11/07/17 08:00 97.6 104 18 121/61 (81) 96 11/07/17 07:00 Room Air 11/07/17 04:10 67 11/07/17 04:00 98.4 85 16 107/52 (70) 97 11/07/17 02:50 84 11/07/17 01:39 18 11/07/17 00:00 98.8 100 16 115/70 (85) 96 11/06/17 23:54 96 11/06/17 22:20 Room Air 11/06/17 20:00 98.2 102 17 99/54 (69) 100 11/06/17 19:46 99 11/06/17 16:00 Room Air 11/06/17 15:55 103 11/06/17 15:55 98.2 83 20 113/53 (73) 95 (Laisha Licea) -: 11/07/17 0548 Imaging Last 72 hours Impressions Lower Extremity CT 11/06/17 0000 Signed Impressions: CONCLUSION: 1. Diffuse soft tissue swelling likely edema. 2. Degenerative changes of the ankle. Lower Extremity CT 11/06/17 0000 Signed Impressions: CONCLUSION: 1. Diffuse soft tissue swelling likely edema. 2. No acute bony abnormalities. 3. Prominent degenerative changes left hip. (Laisha Licea) Physical Exam General Appearance: No Acute Distress, Comfortable, Obese (Laisha Licea) Eyes Eye Exam: Pupils Equal, Pupils Reactive (Laisha Licea) Throat Throat Exam: Oral Mucosa [place] & Moist (Laisha Licea) Pulmonary Resp Exam: Clear Bilaterally, Breath Sounds Equal (Laisha Licea) Cardiology CV Exam: Normal Sinus Rhythm, Good Perfusion (Laisha Licea) Gastrointestinal/Abdomen GI Exam: Soft, Non-Tender, Bowel Sounds Present (Laisha Licea) Musculoskeletal MS Exam: Joints Intact, Unable to Ambulate, Infections (Laisha Licea) Integumentary Skin Exam: Warm, Dry, Ulcer(s) Skin Remarks erythema and edema to bilateral lower extremities blisters left leg open blister right great toe (Laisha Licea) Extremeties Extremities Exam: Pedal Pulses Palpable, Moderate Edema, Dependent Edema (Laisha Licea) Neurologic Neuro Exam: Alert, Awake, Oriented, Speech Clear, Moving All Extremities (Laisha Licea) Psychiatric Psych Exam: Appropriate Responses (Laisha Licea) Assessment/Plan Discussed Condition With: Patient, Spouse Assessment Summary: PATO/Acute Renal Failure, Fluid/Volume Overload, Hypertension, Diabetes Mellitus Problem List: (1) Renal failure (ARF), acute on chronic ICD Codes: N17.9 - Acute kidney failure, unspecified; N18.9 - Chronic kidney disease, unspecified Status: Acute Plan: Baseline creatinine 1.6-1.7 PATO most likely due to infection, possibly AIN with recent antibiotic use His renal function has been worse but stable since admission, creatinine of around 2.5 He is non oliguric.On Lasix 40 mg PO daily Continue present medications, avoid nephrotoxins and dose appropriate to renal status Needs PT/OT as he is severely deconditioned We will follow in CKD clinic if discharged. (2) Cellulitis of both lower extremities ICD Codes: L03.115 - Cellulitis of right lower limb; L03.116 - Cellulitis of left lower limb Status: Acute Plan: ID and wound following Wound culture with pseudomonas On IV Daptomycin MANOHAR: arterial insufficiency bilaterally CT shows edema with no fluid collections (3) HTN (hypertension) ICD Codes: I10 - Essential (primary) hypertension Status: Chronic Plan: Continue present medications (4) Atrial fibrillation ICD Codes: I48.91 - Unspecified atrial fibrillation Status: Chronic Plan: Rate controlled On dose adjusted Coumadin, follow INR Currently therapeutic Plan (Laisha Licea) Plan patient was seen and examined. Agree with above assessment and plan. Renal function is stable. (Donny Vidal MD) Problem Qualifiers (1) HTN (hypertension): Qualified Codes: I10 - Essential (primary) hypertension (2) Atrial fibrillation: Qualified Codes: I48.2 - Chronic atrial fibrillation Laisha Licea Nov 07, 2017 15:04 Donny Vidal MD Nov 07, 2017 16:04
[2017-11-07] MEDS: DAPTOmycin INJ 1,000 MG in SODIUM CHLORIDE 0.9% INJ 100 ML IV SCH (22:01)
[2017-11-07] MEDS: TAMSULOSIN HCL 0.4 MG CAP PO SCH (22:08)
[2017-11-07] MEDS: ATORVASTATIN 20 MG TAB PO SCH (22:08)
[2017-11-08] VITALS (8 sets, daily range): BP systolic 98–134; BP diastolic 53–67; PULSE 71–109; RESP 16–18; TEMP 98–98.7; O2SAT 93–98
[2017-11-08] MEDS: METOPROLOL TARTRATE 100 MG TAB PO SCH ×2 (09:06→22:31)
[2017-11-08] MEDS: DOCUSATE SODIUM 100 MG CAP PO SCH ×2 (09:06→22:32)
[2017-11-08] MEDS: PANTOPRAZOLE SOD 40 MG DELAYED RELEASE TAB PO SCH (09:06)
[2017-11-08] MEDS: MAGNESIUM HYDROXIDE SUSP 30 ML CUP PO PRN (09:06)
[2017-11-08] MEDS: FUROSEMIDE 40 MG TAB PO SCH (09:06)
--- NOTE | 2017-11-08 10:01 | HHI.PR ---
Subjective Remarks left leg feels better. Objective Vitals heart reg lung cta abd s/nt ext lymphedema. worse left leg with tenderness. right leg wrapped Vital Signs Date Time Temp Pulse Resp B/P (MAP) Pulse Ox O2 Delivery O2 Flow Rate FiO2 11/08/17 08:00 81 11/08/17 04:00 89 11/08/17 04:00 98.0 94 18 134/67 (89) 97 11/08/17 00:00 98.0 109 16 98/58 (71) 95 11/08/17 00:00 96 11/07/17 20:00 Room Air 11/07/17 20:00 96 11/07/17 20:00 97.6 105 19 105/54 (71) 94 11/07/17 16:00 90 11/07/17 16:00 97.7 89 18 103/57 (72) 94 11/07/17 12:00 95 11/07/17 12:00 98.6 101 18 125/49 (74) 96 Result Diagram: 11/07/17 0548 Imaging Last Impressions Lower Extremity Ultrasound 10/30/17 0000 Signed Impressions: CONCLUSION: 1. Extensive subcutaneous edema. No drainable fluid collections identified. Chest X-Ray 10/30/17 0000 Signed Impressions: CONCLUSION: Cardiomegaly. Postoperative median sternotomy. No focal infiltrate or significa nt effusion. A/P Problem List: (1) Cellulitis of both lower extremities ICD Codes: L03.115 - Cellulitis of right lower limb; L03.116 - Cellulitis of left lower limb Status: Acute Plan: Patient patient is a 81-year-old male with multiple medical problems including coronary artery disease, status post CABG, atrial fibrillation, CHF, chronic kidney disease stage III, chronic lower extremity edema. Patient has chronic lower extremity lymphedema. Pt reports worsening weakness in his knees over the last few months. Pt reports that a few months ago he was able to ambulate short distances in his home using a walker, but he can NO longer ambulate with the walker. Pt was able to transfer independency to his wheelchair, but more recently his LE weakness has progressed to the point where he has NOT been able to independently transfer for the last few days. Pt reports that [facility] comes to his house to provide lymphedema wraps on Mondays and Fridays. Pt is seen by [facility]. He was recently started on clindamycin. He completed only 2 doses. Pt reports that he has had increased pain and swelling to his left leg, particularly laterally at the left thigh and anteriorly below the left knee. Pt reports that he follows with Sports Medicine, Dr. Polo. Pt reports that earlier in the year he had a steroid injection to his knee which initially helped. Pt had kenalog injection of both knees (06/25/17) with some relief to his knee pain. Pt had kenalog injection of both knees (09/26/17) which pt reports provided some relief. Pt subsequently had right knee Synvisc injection (10/06/17) which pt reports did NOT improve his symptoms. Patient also complains of a blister at his right great toe which has ruptured revealing excoriated skin at the dorsal aspect of the right great toe which the patient characterizes as painful. - comgmt with ID and nephrology - Pt received IV Vancomycin in the ER - Daptomycin (10/30 - present) - Blood Cx (10/30) --> staph coag in one bottle (likely contaminant) - toe wound cx shows pseudomonas and mdr.. - b/l LE soft tissue US (10/30) --> extensive subcutaneous edema, but no drainable fluid collections - b/l LE Venous doppler US (10/30) --> No DVTs - podiatry evaluated the pt and recommending compression and local wound care - discussed with ID. recc. imaging study of LLE for persistent pain and swelling. noncontrast CT left leg shows diffuse swelling hold coumadin and recheck inr. hold arb for low bp.. pt and agree now to snf. called [facility] to find out about getting lymphedema wraps at snf. monitor left leg progress and ID to reevaluate Friday for possible dc to snf early next week. (2) Chronic acquired lymphedema ICD Codes: I89.0 - Lymphedema, not elsewhere classified Status: Acute Plan: - see above (3) Atrial fibrillation ICD Codes: I48.91 - Unspecified atrial fibrillation Status: Chronic Plan: - continue metoprolol 100mg BID -coumadin on hold for high inr (4) CKD (chronic kidney disease) stage 3, GFR 30-59 ml/min ICD Codes: N18.3 - Chronic kidney disease, stage 3 (moderate) Status: Chronic Plan: - (5) HTN (hypertension) ICD Codes: I10 - Essential (primary) hypertension Status: Chronic Plan: above (6) CAD (coronary artery disease) ICD Codes: I25.10 - Atherosclerotic heart disease of [place] coronary artery without angina pectoris Status: Chronic Plan: - metoprolol, lipitor Problem Qualifiers (1) Atrial fibrillation: Qualified Codes: I48.2 - Chronic atrial fibrillation (2) HTN (hypertension): Qualified Codes: I10 - Essential (primary) hypertension (3) CAD (coronary artery disease): Qualified Codes: I25.10 - Atherosclerotic heart disease of [place] coronary artery without angina pectoris Alfonso Asif MD Nov 08, 2017 10:01
[2017-11-08 10:27] LABS: PROTHROMBIN TIME - PATIENT 30.3 SEC (9.8-11.6)
--- NOTE | 2017-11-08 14:37 | HHI.NPPN ---
Subjective General Problems: Edema Renal Failure: Chronic, Acute, Stage III Interval History resting without distress. No new labs. Review of Systems General Constitutional: Fatigue Cardiovascular Cardiac: Edema Skin Skin: Lesions, Ulcers Objective Data Data Vital Signs Date Time Temp Pulse Resp B/P (MAP) Pulse Ox O2 Delivery O2 Flow Rate FiO2 11/08/17 08:45 Room Air 11/08/17 08:00 81 11/08/17 04:00 89 11/08/17 04:00 98.0 94 18 134/67 (89) 97 11/08/17 00:00 98.0 109 16 98/58 (71) 95 11/08/17 00:00 96 11/07/17 20:00 Room Air 11/07/17 20:00 96 11/07/17 20:00 97.6 105 19 105/54 (71) 94 11/07/17 16:00 90 11/07/17 16:00 97.7 89 18 103/57 (72) 94 -: 11/07/17 0548 Physical Exam General Appearance: No Acute Distress, Comfortable, Obese Eyes Eye Exam: Pupils Equal, Pupils Reactive Throat Throat Exam: Oral Mucosa [place] & Moist Pulmonary Resp Exam: Clear Bilaterally, Breath Sounds Equal Cardiology CV Exam: Normal Sinus Rhythm, Good Perfusion Gastrointestinal/Abdomen GI Exam: Soft, Non-Tender, Bowel Sounds Present Musculoskeletal MS Exam: Joints Intact, Unable to Ambulate, Infections Integumentary Skin Exam: Warm, Dry, Ulcer(s) Extremeties Extremities Exam: Pedal Pulses Palpable, Moderate Edema, Dependent Edema Neurologic Neuro Exam: Alert, Awake, Oriented, Speech Clear, Moving All Extremities Psychiatric Psych Exam: Appropriate Responses Assessment/Plan Discussed Condition With: Patient, Spouse Assessment Summary: PATO/Acute Renal Failure, Fluid/Volume Overload, Hypertension, Diabetes Mellitus Problem List: (1) Renal failure (ARF), acute on chronic ICD Codes: N17.9 - Acute kidney failure, unspecified; N18.9 - Chronic kidney disease, unspecified Status: Acute Plan: PATO most likely due to infection, possibly AIN with recent antibiotic use His renal function has been worse but stable since admission, creatinine of around 2.5. This may be his new baseline. He is non oliguric.On Lasix 40 mg PO daily Continue present medications, avoid nephrotoxins and dose appropriate to renal status Needs PT/OT as he is severely deconditioned We will follow in CKD clinic if discharged. (2) Cellulitis of both lower extremities ICD Codes: L03.115 - Cellulitis of right lower limb; L03.116 - Cellulitis of left lower limb Status: Acute Plan: ID and wound following Wound culture with pseudomonas On IV Daptomycin MANOHAR: arterial insufficiency bilaterally CT shows edema with no fluid collections (3) HTN (hypertension) ICD Codes: I10 - Essential (primary) hypertension Status: Chronic Plan: Continue present medications (4) Atrial fibrillation ICD Codes: I48.91 - Unspecified atrial fibrillation Status: Chronic Plan: Rate controlled On dose adjusted Coumadin, follow INR Currently therapeutic Plan . Problem Qualifiers (1) HTN (hypertension): Qualified Codes: I10 - Essential (primary) hypertension (2) Atrial fibrillation: Qualified Codes: I48.2 - Chronic atrial fibrillation Donny Vidal MD Nov 08, 2017 14:37
[2017-11-08] MEDS: TAMSULOSIN HCL 0.4 MG CAP PO SCH (22:31)
[2017-11-08] MEDS: ATORVASTATIN 20 MG TAB PO SCH (22:32)
[2017-11-08] MEDS: oxyCODONE/ACETAMINOPHEN 10 MG/325 MG TAB PO PRN (22:44)
[2017-11-09] VITALS (9 sets, daily range): BP systolic 113–131; BP diastolic 54–92; PULSE 68–96; RESP 17–18; TEMP 98–98.8; O2SAT 94–98
[2017-11-09] MEDS: PANTOPRAZOLE SOD 40 MG DELAYED RELEASE TAB PO SCH (09:09)
[2017-11-09] MEDS: METOPROLOL TARTRATE 100 MG TAB PO SCH ×2 (09:10→21:46)
[2017-11-09] MEDS: DOCUSATE SODIUM 100 MG CAP PO SCH ×2 (09:10→21:46)
[2017-11-09] MEDS: FUROSEMIDE 40 MG TAB PO SCH (09:12)
--- NOTE | 2017-11-09 11:03 | HHI.PR ---
Subjective Remarks no new complaints Objective Vitals heart reg lung cta abd s/nt ext rle compression wrap to below knee lle. rylee wrap mid [place]. lymphedema/tenderness entire lower ext on left but a little softer. Vital Signs Date Time Temp Pulse Resp B/P (MAP) Pulse Ox O2 Delivery O2 Flow Rate FiO2 11/09/17 08:00 83 11/09/17 08:00 98.6 96 18 131/73 (92) 97 11/09/17 04:00 Room Air 11/09/17 04:00 98.4 94 18 131/63 (85) 96 11/09/17 03:46 72 11/09/17 00:00 98.8 94 17 115/55 (75) 96 11/09/17 00:00 Room Air 11/08/17 23:09 93 11/08/17 20:00 Room Air 11/08/17 20:00 98.4 89 16 106/53 (70) 96 11/08/17 19:50 82 11/08/17 16:00 98.0 97 18 134/65 (88) 93 11/08/17 16:00 71 11/08/17 12:00 98.7 75 18 107/57 (74) 98 11/08/17 12:00 76 Result Diagram: 11/07/17 0548 Imaging Last Impressions Lower Extremity Ultrasound 10/30/17 0000 Signed Impressions: CONCLUSION: 1. Extensive subcutaneous edema. No drainable fluid collections identified. Chest X-Ray 10/30/17 0000 Signed Impressions: CONCLUSION: Cardiomegaly. Postoperative median sternotomy. No focal infiltrate or significa nt effusion. A/P Problem List: (1) Cellulitis of both lower extremities ICD Codes: L03.115 - Cellulitis of right lower limb; L03.116 - Cellulitis of left lower limb Status: Acute Plan: Patient patient is a 81-year-old male with multiple medical problems including coronary artery disease, status post CABG, atrial fibrillation, CHF, chronic kidney disease stage III, chronic lower extremity edema. Patient has chronic lower extremity lymphedema. Pt reports worsening weakness in his knees over the last few months. Pt reports that a few months ago he was able to ambulate short distances in his home using a walker, but he can NO longer ambulate with the walker. Pt was able to transfer independency to his wheelchair, but more recently his LE weakness has progressed to the point where he has NOT been able to independently transfer for the last few days. Pt reports that [facility] comes to his house to provide lymphedema wraps on Mondays and Fridays. Pt is seen by [facility]. He was recently started on clindamycin. He completed only 2 doses. Pt reports that he has had increased pain and swelling to his left leg, particularly laterally at the left thigh and anteriorly below the left knee. Pt reports that he follows with Sports Medicine, Dr. Polo. Pt reports that earlier in the year he had a steroid injection to his knee which initially helped. Pt had kenalog injection of both knees (06/25/17) with some relief to his knee pain. Pt had kenalog injection of both knees (09/26/17) which pt reports provided some relief. Pt subsequently had right knee Synvisc injection (10/06/17) which pt reports did NOT improve his symptoms. Patient also complains of a blister at his right great toe which has ruptured revealing excoriated skin at the dorsal aspect of the right great toe which the patient characterizes as painful. - comgmt with ID and nephrology - Pt received IV Vancomycin in the ER - Daptomycin (10/30 - present) - Blood Cx (10/30) --> staph coag in one bottle (likely contaminant) - toe wound cx shows pseudomonas and mdr.. - b/l LE soft tissue US (10/30) --> extensive subcutaneous edema, but no drainable fluid collections - b/l LE Venous doppler US (10/30) --> No DVTs - podiatry evaluated the pt and recommending compression and local wound care - discussed with ID. recc. imaging study of LLE for persistent pain and swelling. noncontrast CT left leg shows diffuse swelling hold coumadin and recheck inr. resume when below 3.. hold arb for low bp.. pt and agree now to snf. called [facility] to find out about getting lymphedema wraps at snf. monitor left leg progress and ID to reevaluate Friday for possible dc to snf early next week. I asked the nursing staff to place krissy wrap on LLE today and have wound reevaluate him for compression on LLE tomorrow. (2) Chronic acquired lymphedema ICD Codes: I89.0 - Lymphedema, not elsewhere classified Status: Acute Plan: - see above (3) Atrial fibrillation ICD Codes: I48.91 - Unspecified atrial fibrillation Status: Chronic Plan: - continue metoprolol 100mg BID -coumadin on hold for high inr (4) CKD (chronic kidney disease) stage 3, GFR 30-59 ml/min ICD Codes: N18.3 - Chronic kidney disease, stage 3 (moderate) Status: Chronic Plan: - (5) HTN (hypertension) ICD Codes: I10 - Essential (primary) hypertension Status: Chronic Plan: above (6) CAD (coronary artery disease) ICD Codes: I25.10 - Atherosclerotic heart disease of [place] coronary artery without angina pectoris Status: Chronic Plan: - metoprolol, lipitor Problem Qualifiers (1) Atrial fibrillation: Qualified Codes: I48.2 - Chronic atrial fibrillation (2) HTN (hypertension): Qualified Codes: I10 - Essential (primary) hypertension (3) CAD (coronary artery disease): Qualified Codes: I25.10 - Atherosclerotic heart disease of [place] coronary artery without angina pectoris Alfonso Asif MD Nov 09, 2017 11:03
--- NOTE | 2017-11-09 11:28 | HHI.NPPN ---
Subjective General Problems: Edema Renal Failure: Chronic, Acute, Stage III Interval History patient is comfortable. Sleeping. Review of Systems General Constitutional: Fatigue Cardiovascular Cardiac: Edema Skin Skin: Lesions, Ulcers Objective Data Data Vital Signs Date Time Temp Pulse Resp B/P (MAP) Pulse Ox O2 Delivery O2 Flow Rate FiO2 11/09/17 08:00 83 11/09/17 08:00 98.6 96 18 131/73 (92) 97 11/09/17 04:00 Room Air 11/09/17 04:00 98.4 94 18 131/63 (85) 96 11/09/17 03:46 72 11/09/17 00:00 98.8 94 17 115/55 (75) 96 11/09/17 00:00 Room Air 11/08/17 23:09 93 11/08/17 20:00 Room Air 11/08/17 20:00 98.4 89 16 106/53 (70) 96 11/08/17 19:50 82 11/08/17 16:00 98.0 97 18 134/65 (88) 93 11/08/17 16:00 71 11/08/17 12:00 98.7 75 18 107/57 (74) 98 11/08/17 12:00 76 -: 11/07/17 0548 Physical Exam General Appearance: No Acute Distress, Comfortable, Obese Eyes Eye Exam: Pupils Equal, Pupils Reactive Throat Throat Exam: Oral Mucosa [place] & Moist Pulmonary Resp Exam: Clear Bilaterally, Breath Sounds Equal Cardiology CV Exam: Normal Sinus Rhythm, Good Perfusion Gastrointestinal/Abdomen GI Exam: Soft, Non-Tender, Bowel Sounds Present Musculoskeletal MS Exam: Joints Intact, Unable to Ambulate, Infections Integumentary Skin Exam: Warm, Dry, Ulcer(s) Extremeties Extremities Exam: Pedal Pulses Palpable, Moderate Edema, Dependent Edema Neurologic Neuro Exam: Alert, Awake, Oriented, Speech Clear, Moving All Extremities Psychiatric Psych Exam: Appropriate Responses Assessment/Plan Discussed Condition With: Patient, Spouse Assessment Summary: PATO/Acute Renal Failure, Fluid/Volume Overload, Hypertension, Diabetes Mellitus Problem List: (1) Renal failure (ARF), acute on chronic ICD Codes: N17.9 - Acute kidney failure, unspecified; N18.9 - Chronic kidney disease, unspecified Status: Acute Plan: PATO most likely due to infection, possibly AIN with recent antibiotic use His renal function has been worse but stable since admission, creatinine of around 2.5. This may be his new baseline. He is non oliguric.On Lasix 40 mg PO daily Continue present medications, avoid nephrotoxins and dose appropriate to renal status Needs PT/OT as he is severely deconditioned We will follow in CKD clinic if discharged. (2) Cellulitis of both lower extremities ICD Codes: L03.115 - Cellulitis of right lower limb; L03.116 - Cellulitis of left lower limb Status: Acute Plan: ID and wound following Wound culture with pseudomonas On IV Daptomycin MANOHAR: arterial insufficiency bilaterally CT shows edema with no fluid collections (3) HTN (hypertension) ICD Codes: I10 - Essential (primary) hypertension Status: Chronic Plan: Continue present medications (4) Atrial fibrillation ICD Codes: I48.91 - Unspecified atrial fibrillation Status: Chronic Plan: Rate controlled On dose adjusted Coumadin, follow INR Currently therapeutic Plan . Problem Qualifiers (1) HTN (hypertension): Qualified Codes: I10 - Essential (primary) hypertension (2) Atrial fibrillation: Qualified Codes: I48.2 - Chronic atrial fibrillation Donny Vidal MD Nov 09, 2017 11:28
[2017-11-09] MEDS: oxyCODONE/ACETAMINOPHEN 10 MG/325 MG TAB PO PRN ×2 (12:43→22:46)
[2017-11-09] MEDS ORDERED: WARFARIN SOD 3 MG TAB PO SCH (16:00)
[2017-11-09] MEDS ORDERED: PHARMACY ORDERED LAB ONE (16:00)
[2017-11-09 21:26] LABS: INTERNATIONAL NORMALIZED RATIO 2.5 RATIO; PROTHROMBIN TIME - PATIENT 25.4 SEC (9.8-11.6)
[2017-11-09] MEDS: ATORVASTATIN 20 MG TAB PO SCH (21:46)
[2017-11-09] MEDS: TAMSULOSIN HCL 0.4 MG CAP PO SCH (21:46)
[2017-11-09] MEDS: WARFARIN SOD 2.5 MG TAB PO SCH (22:46)
[2017-11-09] MEDS: DAPTOmycin INJ 1,000 MG in SODIUM CHLORIDE 0.9% INJ 100 ML IV SCH (22:46)
[2017-11-10] VITALS (11 sets, daily range): BP systolic 91–156; BP diastolic 54–68; PULSE 20–108; RESP 16–20; TEMP 97.1–98.9; O2SAT 96–98
[2017-11-10] MEDS: PANTOPRAZOLE SOD 40 MG DELAYED RELEASE TAB PO SCH (08:03)
[2017-11-10] MEDS: FUROSEMIDE 40 MG TAB PO SCH (08:03)
[2017-11-10] MEDS: METOPROLOL TARTRATE 100 MG TAB PO SCH ×2 (08:03→20:35)
[2017-11-10] MEDS: DOCUSATE SODIUM 100 MG CAP PO SCH ×2 (08:03→20:35)
[2017-11-10 08:12] LABS: INTERNATIONAL NORMALIZED RATIO 2.4 RATIO; PROTHROMBIN TIME - PATIENT 24.6 SEC (9.8-11.6)
[2017-11-10 08:29] LABS: BICARBONATE 29.6 MEQ/L (21.0-32.0); CALCIUM 8.5 MG/DL (8.5-10.1); CREATININE 2.06 MG/DL (0.60-1.30)
--- NOTE | 2017-11-10 10:19 | HHI.NPPN ---
Subjective General Problems: Edema Renal Failure: Chronic, Acute, Stage III Interval History Lying in bed. Creatinine slightly better. (Laisha Licea) Review of Systems General Constitutional: Fatigue (Laisha Licea) Cardiovascular Cardiac: Edema (Laisha Licea) Skin Skin: Lesions, Ulcers (Laisha Licea) Objective Data Data 11/10/17 11/11/17 19:00 07:00 Output Total 200 ml Balance -200 ml Output Urine Total 200 ml Vital Signs Date Time Temp Pulse Resp B/P (MAP) Pulse Ox O2 Delivery O2 Flow Rate FiO2 11/10/17 08:00 98.9 79 20 118/61 (80) 97 11/10/17 04:00 97.9 53 16 134/64 (87) 98 11/10/17 04:00 Room Air 11/10/17 03:45 74 11/10/17 00:00 98.4 100 18 133/59 (83) 97 11/10/17 00:00 Room Air 11/09/17 23:45 77 11/09/17 20:00 Room Air 11/09/17 20:00 98.0 94 17 121/54 (76) 96 11/09/17 19:47 83 11/09/17 16:00 98.6 84 18 117/56 (76) 94 11/09/17 16:00 80 11/09/17 15:00 Room Air 11/09/17 12:00 98.5 68 18 113/92 (99) 98 11/09/17 12:00 76 11/09/17 11:00 Room Air (Laisha Licea) -: 11/10/17 0720 Physical Exam General Appearance: No Acute Distress, Comfortable, Obese (Laisha Licea) Eyes Eye Exam: Pupils Equal, Pupils Reactive (Laisha Licea) Throat Throat Exam: Oral Mucosa [place] & Moist (Laisha Licea) Pulmonary Resp Exam: Clear Bilaterally, Breath Sounds Equal (Laisha Licea) Cardiology CV Exam: Normal Sinus Rhythm, Good Perfusion (Laisha Licea) Gastrointestinal/Abdomen GI Exam: Soft, Non-Tender, Bowel Sounds Present (Laisha Lciea) Musculoskeletal MS Exam: Joints Intact, Unable to Ambulate, Infections (Laisha Licea) Integumentary Skin Exam: Warm, Dry, Ulcer(s) Skin Remarks erythema and edema to bilateral lower extremities blisters left leg open blister right great toe (Laisha Licea) Extremeties Extremities Exam: Pedal Pulses Palpable, Moderate Edema, Dependent Edema (Laisha Licea) Neurologic Neuro Exam: Alert, Awake, Oriented, Speech Clear, Moving All Extremities (Laisha Licea) Psychiatric Psych Exam: Appropriate Responses (Laisha Licea) Assessment/Plan Discussed Condition With: Patient, Spouse Assessment Summary: PATO/Acute Renal Failure, Fluid/Volume Overload, Hypertension, Diabetes Mellitus Problem List: (1) Renal failure (ARF), acute on chronic ICD Codes: N17.9 - Acute kidney failure, unspecified; N18.9 - Chronic kidney disease, unspecified Status: Acute Plan: PATO most likely due to infection, possibly AIN with recent antibiotic use His renal function slightly better. Prior to this admission his baseline was 1.6. He is non oliguric.On Lasix 40 mg PO daily Continue present medications, avoid nephrotoxins and dose appropriate to renal status Needs PT/OT as he is severely deconditioned, may benefit from rehab facility. We will follow in CKD clinic if discharged. (2) Cellulitis of both lower extremities ICD Codes: L03.115 - Cellulitis of right lower limb; L03.116 - Cellulitis of left lower limb Status: Acute Plan: ID and wound following Wound culture with pseudomonas On IV Daptomycin, will need conversion to PO for discharge purposes. MANOHAR: arterial insufficiency bilaterally CT shows edema with no fluid collections Needs to continue with lymphedema treatments at discharge. (3) HTN (hypertension) ICD Codes: I10 - Essential (primary) hypertension Status: Chronic Plan: Continue present medications (4) Atrial fibrillation ICD Codes: I48.91 - Unspecified atrial fibrillation Status: Chronic Plan: Rate controlled On dose adjusted Coumadin, follow INR Currently therapeutic Plan . (Laisha Licea) Plan patient was seen and examined. Agree with above assessment and plan. Renal function is stable. (Donny Vidal MD) Problem Qualifiers (1) HTN (hypertension): Qualified Codes: I10 - Essential (primary) hypertension (2) Atrial fibrillation: Qualified Codes: I48.2 - Chronic atrial fibrillation Laisha Licea Nov 10, 2017 10:19 Donny Vidal MD Nov 11, 2017 10:45
--- NOTE | 2017-11-10 15:09 | HHI.PR ---
Subjective Remarks No new complaints. Objective Vitals Vital Signs Date Time Temp Pulse Resp B/P (MAP) Pulse Ox O2 Delivery O2 Flow Rate FiO2 11/10/17 12:00 98.4 20 20 91/54 (66) 96 11/10/17 12:00 82 11/10/17 08:00 98.9 79 20 118/61 (80) 97 11/10/17 07:50 85 11/10/17 07:00 Room Air 11/10/17 04:00 97.9 53 16 134/64 (87) 98 11/10/17 04:00 Room Air 11/10/17 03:45 74 11/10/17 00:00 98.4 100 18 133/59 (83) 97 11/10/17 00:00 Room Air 11/09/17 23:45 77 11/09/17 20:00 Room Air 11/09/17 20:00 98.0 94 17 121/54 (76) 96 11/09/17 19:47 83 11/09/17 16:00 98.6 84 18 117/56 (76) 94 11/09/17 16:00 80 11/10/17 11/10/17 11/11/17 15:00 23:00 07:00 Intake Total 480 ml Output Total 200 ml Balance 280 ml Intake Oral 480 ml Output Urine Total 200 ml Result Diagram: 11/10/17 0720 Imaging Last Impressions Lower Extremity Ultrasound 10/30/17 0000 Signed Impressions: CONCLUSION: 1. Extensive subcutaneous edema. No drainable fluid collections identified. Chest X-Ray 10/30/17 0000 Signed Impressions: CONCLUSION: Cardiomegaly. Postoperative median sternotomy. No focal infiltrate or significa nt effusion. Objective Remarks GENERAL: This is a well-nourished, well-developed patient, in no apparent distress. CARDIOVASCULAR: Regular rate and rhythm without murmurs, gallops, or rubs. RESPIRATORY: Clear to auscultation. Breath sounds equal bilaterally. No wheezes , rales, or rhonchi. GASTROINTESTINAL: Abdomen soft, non-tender, nondistended. Normal active bowel sounds MUSCULOSKELETAL: Extremities without clubbing, cyanosis, or edema. NEURO: Alert & Oriented x4 to person, place, time, situation. Moves all ext x4 Skin: wraps/bandages removed from LLE to examine pt's leg. LLE look significantly better with less edema. However, still erythema on the lateral aspect & tender to palpation. A/P Problem List: (1) Cellulitis of both lower extremities ICD Codes: L03.115 - Cellulitis of right lower limb; L03.116 - Cellulitis of left lower limb Status: Acute Plan: Patient patient is a 81-year-old male with multiple medical problems including coronary artery disease, status post CABG, atrial fibrillation, CHF, chronic kidney disease stage III, chronic lower extremity edema. Patient has chronic lower extremity lymphedema. Pt reports worsening weakness in his knees over the last few months. Pt reports that a few months ago he was able to ambulate short distances in his home using a walker, but he can NO longer ambulate with the walker. Pt was able to transfer independency to his wheelchair, but more recently his LE weakness has progressed to the point where he has NOT been able to independently transfer for the last few days. Pt reports that [facility] comes to his house to provide lymphedema wraps on Mondays and Fridays. Pt is seen by [facility]. He was recently started on clindamycin. He completed only 2 doses. Pt reports that he has had increased pain and swelling to his left leg, particularly laterally at the left thigh and anteriorly below the left knee. Pt reports that he follows with Sports Medicine, Dr. Polo. Pt reports that earlier in the year he had a steroid injection to his knee which initially helped. Pt had kenalog injection of both knees (06/25/17) with some relief to his knee pain. Pt had kenalog injection of both knees (09/26/17) which pt reports provided some relief. Pt subsequently had right knee Synvisc injection (10/06/17) which pt reports did NOT improve his symptoms. Patient also complains of a blister at his right great toe which has ruptured revealing excoriated skin at the dorsal aspect of the right great toe which the patient characterizes as painful. - comgmt with ID and nephrology - Pt received IV Vancomycin in the ER - Daptomycin (10/30 - present) - Blood Cx (10/30) --> staph coag in one bottle (likely contaminant) - toe wound cx shows pseudomonas and mdr.. - b/l LE soft tissue US (10/30) --> extensive subcutaneous edema, but no drainable fluid collections - b/l LE Venous doppler US (10/30) --> No DVTs - podiatry evaluated the pt and recommending compression and local wound care - Pt examined at the bedside together with ID, Dr. Hillman. - Will obtain MRI LLE. - DVT prophylaxis - supportive care. - anticipate d/c to SNF in the next 2-3 days. (2) Chronic acquired lymphedema ICD Codes: I89.0 - Lymphedema, not elsewhere classified Status: Acute Plan: - see above (3) Atrial fibrillation ICD Codes: I48.91 - Unspecified atrial fibrillation Status: Chronic Plan: - continue metoprolol 100mg BID -coumadin on hold for high inr (4) CKD (chronic kidney disease) stage 3, GFR 30-59 ml/min ICD Codes: N18.3 - Chronic kidney disease, stage 3 (moderate) Status: Chronic Plan: - stable (5) HTN (hypertension) ICD Codes: I10 - Essential (primary) hypertension Status: Chronic Plan: above (6) CAD (coronary artery disease) ICD Codes: I25.10 - Atherosclerotic heart disease of [place] coronary artery without angina pectoris Status: Chronic Plan: - metoprolol, lipitor Problem Qualifiers (1) Atrial fibrillation: Qualified Codes: I48.2 - Chronic atrial fibrillation (2) HTN (hypertension): Qualified Codes: I10 - Essential (primary) hypertension (3) CAD (coronary artery disease): Qualified Codes: I25.10 - Atherosclerotic heart disease of [place] coronary artery without angina pectoris Michael Rich DO Nov 10, 2017 15:09
[2017-11-10] MEDS: oxyCODONE/ACETAMINOPHEN 10 MG/325 MG TAB PO PRN ×2 (15:15→20:35)
[2017-11-10] MEDS: WARFARIN SOD 2.5 MG TAB PO SCH (15:15)
--- NOTE | 2017-11-10 17:19 | HHI.IDPN ---
Subjective Subjective Remarks pt seen druing rounds together with Dr Rich Pt LLE pain improving Non contrasted CT w/o fluid collections afebrile Antibiotics daptomycin Past Medical History morbid obesity chronic venostasis Allergies: Coded Allergies: azithromycin (Verified Allergy, Severe, UNKNOWN, 05/22/17) enalaprilat (Verified Allergy, Severe, FACIAL EDEMA, 05/22/17) penicillin G (Verified Allergy, Severe, ANAPHYLAXIS, 05/22/17) Objective . Vital Signs Date Time Temp Pulse Resp B/P (MAP) Pulse Ox O2 Delivery O2 Flow Rate FiO2 11/10/17 16:00 108 11/10/17 16:00 98.3 92 20 132/64 (86) 96 11/10/17 15:44 108 11/10/17 12:00 98.4 20 20 91/54 (66) 96 11/10/17 12:00 82 11/10/17 08:00 98.9 79 20 118/61 (80) 97 11/10/17 07:50 85 11/10/17 07:00 Room Air 11/10/17 04:00 97.9 53 16 134/64 (87) 98 11/10/17 04:00 Room Air 11/10/17 03:45 74 11/10/17 00:00 98.4 100 18 133/59 (83) 97 11/10/17 00:00 Room Air 11/09/17 23:45 77 11/09/17 20:00 Room Air 11/09/17 20:00 98.0 94 17 121/54 (76) 96 11/09/17 19:47 83 11/10/17 11/10/17 11/11/17 15:00 23:00 07:00 Intake Total 480 ml Output Total 200 ml Balance 280 ml Intake Oral 480 ml Output Urine Total 200 ml . Laboratory Tests Test 11/10/17 07:20 Blood Urea Nitrogen 49 MG/DL Creatinine 2.06 MG/DL Random Glucose 107 MG/DL Calcium Level 8.5 MG/DL Sodium Level 139 MEQ/L Potassium Level 4.4 MEQ/L Chloride Level 102 MEQ/L Carbon Dioxide Level 29.6 MEQ/L Anion Gap 7 MEQ/L Estimat Glomerular Filtration Rate 38 ML/MIN Imaging Last Impressions Lower Extremity CT 11/06/17 0000 Signed Impressions: CONCLUSION: 1. Diffuse soft tissue swelling likely edema. 2. Degenerative changes of the ankle. Head CT 11/04/17 Signed Impressions: CONCLUSION: 1. Chronic ischemic findings. 2. No acute intracranial findings identified. Extremity Arterial Study 11/03/17 Signed Impressions: CONCLUSION: 1. Mild decrease bilateral ABIs consistent with mild arterial insufficiency. 2. Moderate to severe decrease TBI's characteristic of significant small vesse l disease of the feet. Lower Extremity Ultrasound 10/30/17 Signed Impressions: CONCLUSION: 1. Extensive subcutaneous edema. No drainable fluid collections identified. Chest X-Ray 10/30/17 Signed Impressions: CONCLUSION: Cardiomegaly. Postoperative median sternotomy. No focal infiltrate or significa nt effusion. Physical Exam CONSTITUTIONAL/GENERAL: This is a morbidly obese patient, in no apparent distress. TUBES/LINES/DRAINS: SKIN: No jaundice, Skin temperature appropriate. Not diaphoretic. RLE erythema, edema improved R hallux with denuded skin LLE exquisetely tender to palpation; very erythematous with tight edema CARDIOVASCULAR: Regular rate and rhythm without murmurs, gallops, or rubs. No JVD. Peripheral pulses symmetric. RESPIRATORY/CHEST: Symmetric, unlabored respirations. Clear to auscultation. Breath sounds equal bilaterally. No wheezes, rales, or rhonchi. GASTROINTESTINAL: Abdomen soft, non-tender, nondistended. No hepato-splenomegaly , or palpable masses. No guarding. Bowel sounds present. MUSCULOSKELETAL: Extremities without clubbing, cyanosis, Markedly improved edema., erythema persists on L thigh area is induated and tender on lateral L thigh, but w/o fluctuance, that area is very tender to palpation Lower L leg much better much improved erythema, signifixcantly reduced edema NEUROLOGICAL: Awake and alert. Motor and sensory grossly within normal limits. Follows commands. Confused. Moves all extremities. PSYCHIATRIC: No obvious anxiety/depression. no apparent hallucinations or other psychotic thought process. Assessment & Plan Remarks Morbid obesity with chronic venostasis BLE cellulitis, LLE persistently infected RLE much improved L LE improved , but thigh is concerning MDRO PSAE from R hallux wound - doubt clinical significance - wound was not purulent and GNB can reperesent colonisation CKD, advanced Low grade coag neg staph bacteremia, doubt clinical signioficance ? MS change leukocytosis - resolved cont daptomycin: (ACP: concern of worsening of renale fnx) anticipate transition to oral abx prior to dc eventually Needs more improvement before consider for d/c KEEP BLE above heart level MRI L thigh ? abscess repeat CBC dw Nakita Mcgregor MD Nov 10, 2017 17:19
--- NOTE | 2017-11-10 18:19 | PD.WCN.NOT ---
Wound Consult Description: Patient seen for Mead boot change Communicated with: KAI David [address] [place] [address] Recommendation: Please keep Mead boot to BLE in place,If patient complains of tightness,Please elevate BLE above heart, and OK to Cut Mead boot ~2cm on each side of the leg and foot if patient complains of increased pain and discomfort, please remove and call wound care. Wound care will apply Mead boot per podiatry order. Additional Information: Patient seen on [address] [place] [address] for Mead boot change on RLE and application of to LLE around 1700. Leonela Stephens [facility] Nov 10, 2017 18:19
[2017-11-10] MEDS: TAMSULOSIN HCL 0.4 MG CAP PO SCH (20:35)
[2017-11-10] MEDS: ATORVASTATIN 20 MG TAB PO SCH (20:35)
[2017-11-10] MEDS: DAPTOmycin INJ 1,000 MG in SODIUM CHLORIDE 0.9% INJ 100 ML IV SCH (23:55)
[2017-11-11] VITALS (10 sets, daily range): BP systolic 118–144; BP diastolic 54–87; PULSE 75–90; RESP 17–20; TEMP 97.9–98.3; O2SAT 93–98
[2017-11-11] MEDS: oxyCODONE/ACETAMINOPHEN 10 MG/325 MG TAB PO PRN ×5 (00:42→20:35)
[2017-11-11 06:38] LABS: AUTOMATED NEUTROPHIL # 8.4 TH/MM3 (1.8-7.7); BASOPHIL # 0.1 TH/MM3 (0-0.2); BASOPHIL % 0.7 % (0.0-2.0); EOSINOPHIL % 0.2 % (0.0-4.0); HEMATOCRIT 29.4 % (39.0-51.0); HEMOGLOBIN 9.7 GM/DL (13.0-17.0); LYMPH % 7.7 % (9.0-44.0); LYMPHOCYTE # 0.7 TH/MM3 (1.0-4.8); MEAN CELL VOLUME 103.6 FL (80.0-100.0); MEAN CORPUSCULAR HGB CONC 32.8 % (32.0-36.0); MEAN PLATELET VOLUME 7.4 FL (7.0-11.0); MONO % 5.7 % (0.0-8.0); MONOCYTE # 0.6 TH/MM3 (0-0.9); NEUT % 85.7 % (16.0-70.0); PLATELET COUNT 435 TH/MM3 (150-450); RED BLOOD COUNT 2.84 MIL/MM3 (4.50-5.90); RED CELL DISTRIBUTION WIDTH 15.5 % (11.6-17.2); WHITE BLOOD COUNT 9.7 TH/MM3 (4.0-11.0)
[2017-11-11 06:52] LABS: INTERNATIONAL NORMALIZED RATIO 2.4 RATIO; PROTHROMBIN TIME - PATIENT 24.1 SEC (9.8-11.6)
[2017-11-11] MEDS: FUROSEMIDE 40 MG TAB PO SCH (08:10)
[2017-11-11] MEDS: DOCUSATE SODIUM 100 MG CAP PO SCH ×2 (08:10→20:29)
[2017-11-11] MEDS: PANTOPRAZOLE SOD 40 MG DELAYED RELEASE TAB PO SCH (08:10)
[2017-11-11] MEDS: ALPRAZolam 0.5 MG TAB PO PRN (08:10)
[2017-11-11] MEDS: METOPROLOL TARTRATE 100 MG TAB PO SCH ×2 (08:11→20:29)
[2017-11-11] MEDS ORDERED: GADOBENATE DIM PF 529 MG/ML 10ML VIAL (for RAD MRI) IV ONE (09:59)
--- NOTE | 2017-11-11 10:38 | HHI.NPPN ---
Subjective General Problems: Edema Renal Failure: Chronic, Acute, Stage III Interval History Labs from today not obtained. Had MRI left leg this morning. (Laisha Licea) Review of Systems General Constitutional: Fatigue (Laisha Licea) Cardiovascular Cardiac: Edema (Laisha Licea) Skin Skin: Lesions, Ulcers (Laisha Licea) Objective Data Data Vital Signs Date Time Temp Pulse Resp B/P (MAP) Pulse Ox O2 Delivery O2 Flow Rate FiO2 11/11/17 08:04 97.9 81 18 120/54 (76) 97 11/11/17 08:00 Room Air 2.00 11/11/17 08:00 82 11/11/17 04:10 98.0 78 18 141/87 (105) 98 11/11/17 04:00 85 11/11/17 00:00 90 11/10/17 23:38 97.1 79 18 156/68 (97) 98 11/10/17 20:30 Room Air 11/10/17 20:00 92 11/10/17 19:26 98.1 83 17 116/56 (76) 96 11/10/17 16:00 108 11/10/17 16:00 98.3 92 20 132/64 (86) 96 11/10/17 15:44 108 11/10/17 12:00 98.4 20 20 91/54 (66) 96 11/10/17 12:00 82 (Laisha Licea) -: 11/11/17 0540 11/10/17 0720 Physical Exam General Appearance: No Acute Distress, Comfortable, Obese (Laisha Licea) Eyes Eye Exam: Pupils Equal, Pupils Reactive (Laisha Licea) Throat Throat Exam: Oral Mucosa [place] & Moist (Laisha Licea) Pulmonary Resp Exam: Clear Bilaterally, Breath Sounds Equal (Laisha Licea) Cardiology CV Exam: Normal Sinus Rhythm, Good Perfusion (Laisha Licea) Gastrointestinal/Abdomen GI Exam: Soft, Non-Tender, Bowel Sounds Present (Laisha Licea) Musculoskeletal MS Exam: Joints Intact, Unable to Ambulate, Infections (Laisha Licea) Integumentary Skin Exam: Warm, Dry, Ulcer(s) Skin Remarks erythema and edema to bilateral lower extremities blisters left leg open blister right great toe (Laisha Licea) Extremeties Extremities Exam: Pedal Pulses Palpable, Moderate Edema, Dependent Edema (Laisha Licea) Neurologic Neuro Exam: Alert, Awake, Oriented, Speech Clear, Moving All Extremities (Laisha Licea) Psychiatric Psych Exam: Appropriate Responses (Laisha Licea) Assessment/Plan Discussed Condition With: Patient, Spouse Assessment Summary: PATO/Acute Renal Failure, Fluid/Volume Overload, Hypertension, Diabetes Mellitus Problem List: (1) Renal failure (ARF), acute on chronic ICD Codes: N17.9 - Acute kidney failure, unspecified; N18.9 - Chronic kidney disease, unspecified Status: Acute Plan: He has underlying CKD 3. Prior to this admission his baseline was PATO most likely due to infection, possibly AIN with recent antibiotic use Repeat renal panel in AM Monitor urine output. He is non oliguric.On Lasix 40 mg PO daily Continue present medications, avoid nephrotoxins and dose appropriate to renal status Needs PT/OT as he is severely deconditioned, may benefit from rehab facility. We will follow in CKD clinic if discharged. (2) Cellulitis of both lower extremities ICD Codes: L03.115 - Cellulitis of right lower limb; L03.116 - Cellulitis of left lower limb Status: Acute Plan: ID and wound following Wound culture with pseudomonas On IV Daptomycin, will need conversion to PO for discharge purposes. MANOHAR: arterial insufficiency bilaterally CT shows edema with no fluid collections MRI ordered, pending results. Needs to continue with lymphedema treatments at discharge. (3) HTN (hypertension) ICD Codes: I10 - Essential (primary) hypertension Status: Chronic Plan: Continue present medications (4) Atrial fibrillation ICD Codes: I48.91 - Unspecified atrial fibrillation Status: Chronic Plan: Rate controlled On dose adjusted Coumadin, follow INR Currently therapeutic Plan . (Laisha Licea) Plan patient was seen and examined. Had MRI today which revealed soft tissue edema with no localized cavity or fluid collection suggestive of abscess. Continue current therapy from a renal standpoint. (Donny Vidal MD) Problem Qualifiers (1) HTN (hypertension): Qualified Codes: I10 - Essential (primary) hypertension (2) Atrial fibrillation: Qualified Codes: I48.2 - Chronic atrial fibrillation Laisha Licea Nov 11, 2017 10:38 Donny Vidal MD Nov 11, 2017 15:16
--- NOTE | 2017-11-11 12:54 | HHI.PR ---
Subjective Remarks left thigh remains swollen and painful to touch. Objective Vitals Vital Signs Date Time Temp Pulse Resp B/P (MAP) Pulse Ox O2 Delivery O2 Flow Rate FiO2 11/11/17 12:00 85 11/11/17 08:04 97.9 81 18 120/54 (76) 97 11/11/17 08:00 82 11/11/17 08:00 Room Air 2.00 11/11/17 08:00 82 11/11/17 04:10 98.0 78 18 141/87 (105) 98 11/11/17 04:00 85 11/11/17 00:00 90 11/10/17 23:38 97.1 79 18 156/68 (97) 98 11/10/17 20:30 Room Air 11/10/17 20:00 92 11/10/17 19:26 98.1 83 17 116/56 (76) 96 11/10/17 16:00 108 11/10/17 16:00 98.3 92 20 132/64 (86) 96 11/10/17 15:44 108 Result Diagram: 11/11/17 0540 11/10/17 0720 Imaging Last Impressions Lower Extremity CT 11/06/17 0000 Signed Impressions: CONCLUSION: 1. Diffuse soft tissue swelling likely edema. 2. Degenerative changes of the ankle. Head CT 11/04/17 0000 Signed Impressions: CONCLUSION: 1. Chronic ischemic findings. 2. No acute intracranial findings identified. Extremity Arterial Study 11/03/17 0000 Signed Impressions: CONCLUSION: 1. Mild decrease bilateral ABIs consistent with mild arterial insufficiency. 2. Moderate to severe decrease TBI's characteristic of significant small vesse l disease of the feet. Lower Extremity Ultrasound 10/30/17 0000 Signed Impressions: CONCLUSION: 1. Extensive subcutaneous edema. No drainable fluid collections identified. Chest X-Ray 10/30/17 0000 Signed Impressions: CONCLUSION: Cardiomegaly. Postoperative median sternotomy. No focal infiltrate or significa nt effusion. Objective Remarks GENERAL: This is a well-nourished, well-developed patient, in no apparent distress. CARDIOVASCULAR: Regular rate and rhythm without murmurs, gallops, or rubs. RESPIRATORY: Clear to auscultation. Breath sounds equal bilaterally. No wheezes , rales, or rhonchi. GASTROINTESTINAL: Abdomen soft, non-tender, nondistended. Normal active bowel sounds MUSCULOSKELETAL: Extremities without clubbing, cyanosis, or edema. NEURO: Alert & Oriented x4 to person, place, time, situation. Moves all ext x4 Skin: wraps/bandages removed from LLE to examine pt's leg. LLE look significantly better with less edema. However, still erythema on the lateral aspect & tender to palpation. A/P Problem List: (1) Cellulitis of both lower extremities ICD Codes: L03.115 - Cellulitis of right lower limb; L03.116 - Cellulitis of left lower limb Status: Acute Plan: Patient patient is a 81-year-old male with multiple medical problems including coronary artery disease, status post CABG, atrial fibrillation, CHF, chronic kidney disease stage III, chronic lower extremity edema. Patient has chronic lower extremity lymphedema. Pt reports worsening weakness in his knees over the last few months. Pt reports that a few months ago he was able to ambulate short distances in his home using a walker, but he can NO longer ambulate with the walker. Pt was able to transfer independency to his wheelchair, but more recently his LE weakness has progressed to the point where he has NOT been able to independently transfer for the last few days. Pt reports that [facility] comes to his house to provide lymphedema wraps on Mondays and Fridays. Pt is seen by [facility]. He was recently started on clindamycin. He completed only 2 doses. Pt reports that he has had increased pain and swelling to his left leg, particularly laterally at the left thigh and anteriorly below the left knee. Pt reports that he follows with Sports Medicine, Dr. Polo. Pt reports that earlier in the year he had a steroid injection to his knee which initially helped. Pt had kenalog injection of both knees (06/25/17) with some relief to his knee pain. Pt had kenalog injection of both knees (09/26/17) which pt reports provided some relief. Pt subsequently had right knee Synvisc injection (10/06/17) which pt reports did NOT improve his symptoms. Patient also complains of a blister at his right great toe which has ruptured revealing excoriated skin at the dorsal aspect of the right great toe which the patient characterizes as painful. - comgmt with ID and nephrology - Pt received IV Vancomycin in the ER - Daptomycin (6/7 - present) - Blood Cx (10/30) --> staph coag in one bottle (likely contaminant) - toe wound cx shows pseudomonas and mdr.. - b/l LE soft tissue US (10/30) --> extensive subcutaneous edema, but no drainable fluid collections - b/l LE Venous doppler US (10/30) --> No DVTs - podiatry evaluated the pt and recommending compression and local wound care - LLE MRI - case d/w Radiology - edema in soft tissue and muscles of the thigh - NO drainable fluid collections - Case d/w Dr. Hillman (11/12/17) - continue Daptomycin - once clinical improvement can change daptomycin to Keflex 500mg QID + doxycycline 100mg BID - will try utilizing pillows to tilt pt to the right to assist left thigh edema. - Pt//daughter were updated at the bedside (11/12/17). - All questions answered to the best of my ability. - DVT prophylaxis - supportive care. - anticipate d/c to SNF in the next 2-3 days. (2) Chronic acquired lymphedema ICD Codes: I89.0 - Lymphedema, not elsewhere classified Status: Acute Plan: - see above (3) Atrial fibrillation ICD Codes: I48.91 - Unspecified atrial fibrillation Status: Chronic Plan: - continue metoprolol 100mg BID -coumadin on hold for high inr (4) CKD (chronic kidney disease) stage 3, GFR 30-59 ml/min ICD Codes: N18.3 - Chronic kidney disease, stage 3 (moderate) Status: Chronic Plan: - stable (5) HTN (hypertension) ICD Codes: I10 - Essential (primary) hypertension Status: Chronic Plan: above (6) CAD (coronary artery disease) ICD Codes: I25.10 - Atherosclerotic heart disease of [place] coronary artery without angina pectoris Status: Chronic Plan: - metoprolol, lipitor Problem Qualifiers (1) Atrial fibrillation: Qualified Codes: I48.2 - Chronic atrial fibrillation (2) HTN (hypertension): Qualified Codes: I10 - Essential (primary) hypertension (3) CAD (coronary artery disease): Qualified Codes: I25.10 - Atherosclerotic heart disease of [place] coronary artery without angina pectoris Michael Rich DO Nov 11, 2017 12:54
--- NOTE | 2017-11-11 14:23 | RADRPT ---
EXAM DATE: 11/11/2017 10:06 AM EDT AGE/SEX: 82 years / Male INDICATIONS: Cellulitis left thigh. CLINICAL DATA: This is the patient's subsequent encounter. Patient reports that signs and symptoms h ave been present for 2 weeks and indicates a pain score of 5/10. MEDICAL/SURGICAL HISTORY: Hypertension. Renal insufficiency, chronic. CABG. Inguinal hernia r epair. Craniotomy. COMPARISON: No prior exams available for comparison. TECHNIQUE: Multiplanar, multisequence MRI examination was performed without and with 30 ml Multihanc e (gadobenate) contrast as single exam dose. FINDINGS: There is extensive and prominent diffuse nonspecific edema throughout all the soft tissues involving the left side. No loculated fluid collections are seen to suggest a drainable abscess. There is abnor mal edema seen throughout the muscle bundles as well. There is normal signal intensity throughout the femur. There is no abnormal bone marrow edema. CONCLUSION: 1. Diffuse extensive nonspecific edema and soft tissue swelling throughout the entire soft tissues i nvolving the left side. 2. No loculated or drainable fluid collection is demonstrated. Electronically signed by: Drew Jha MD 11/11/2017 2:21 PM EDT
[2017-11-11] MEDS: WARFARIN SOD 2.5 MG TAB PO SCH (16:15)
[2017-11-11] MEDS: TAMSULOSIN HCL 0.4 MG CAP PO SCH (20:29)
[2017-11-11] MEDS: ATORVASTATIN 20 MG TAB PO SCH (20:30)
[2017-11-11] MEDS: DAPTOmycin INJ 1,000 MG in SODIUM CHLORIDE 0.9% INJ 100 ML IV SCH (23:52)
[2017-11-12] VITALS (12 sets, daily range): BP systolic 119–140; BP diastolic 57–87; PULSE 75–120; RESP 17–20; TEMP 97.5–99; O2SAT 92–98
[2017-11-12 07:29] LABS: INTERNATIONAL NORMALIZED RATIO 2.5 RATIO; PROTHROMBIN TIME - PATIENT 25.2 SEC (9.8-11.6)
[2017-11-12 07:44] LABS: ALBUMIN 2.1 GM/DL (3.4-5.0); BICARBONATE 29.3 MEQ/L (21.0-32.0); CALCIUM 8.7 MG/DL (8.5-10.1); CREATININE 1.88 MG/DL (0.60-1.30); PHOSPHORUS 3.2 MG/DL (2.5-4.9)
[2017-11-12] MEDS: DOCUSATE SODIUM 100 MG CAP PO SCH ×2 (08:57→20:35)
[2017-11-12] MEDS: FUROSEMIDE 40 MG TAB PO SCH (08:57)
[2017-11-12] MEDS: METOPROLOL TARTRATE 100 MG TAB PO SCH ×2 (08:57→20:35)
[2017-11-12] MEDS: PANTOPRAZOLE SOD 40 MG DELAYED RELEASE TAB PO SCH (08:58)
--- NOTE | 2017-11-12 11:48 | HHI.NPPN ---
Subjective General Problems: Edema Renal Failure: Chronic, Acute, Stage III Interval History Renal function is better. He is more alert today. (Laisha Licea) Review of Systems General Constitutional: Fatigue (Laisha Licea) Cardiovascular Cardiac: Edema (Laisha Licea) Skin Skin: Lesions, Ulcers (Laisha Licea) Objective Data Data Vital Signs Date Time Temp Pulse Resp B/P (MAP) Pulse Ox O2 Delivery O2 Flow Rate FiO2 11/12/17 08:25 98.4 83 20 123/87 (99) 95 11/12/17 08:00 94 11/12/17 08:00 Room Air 2.00 11/12/17 04:56 Room Air 11/12/17 04:00 75 11/12/17 04:00 98.1 85 17 122/62 (82) 96 11/12/17 00:00 89 11/12/17 00:00 97.5 81 18 119/57 (77) 11/12/17 00:00 98.1 90 17 119/57 (77) 96 11/11/17 20:30 Room Air 11/11/17 20:00 75 11/11/17 20:00 98.3 80 17 118/65 (82) 95 11/11/17 16:30 97.9 80 20 123/60 (81) 93 11/11/17 16:00 86 11/11/17 12:10 98.2 83 20 144/65 (91) 95 11/11/17 12:00 85 (Laisha Licea) -: 11/11/17 0540 11/12/17 0630 Imaging Last 72 hours Impressions Lower Extremity MRI 11/11/17 0000 Signed Impressions: CONCLUSION: 1. Diffuse extensive nonspecific edema and soft tissue swelling throughout the entire soft tissues involving the left side. 2. No loculated or drainable fluid collection is demonstrated. (Laisha Licea) Physical Exam General Appearance: Well Developed, No Acute Distress, Comfortable, Obese (Laisha Licea) Eyes Eye Exam: Pupils Equal, Pupils Reactive (Laisha Licea) Throat Throat Exam: Oral Mucosa [place] & Moist (Laisha Licea) Pulmonary Resp Exam: Clear Bilaterally, Breath Sounds Equal (Laisha LiceaP) Cardiology CV Exam: Normal Sinus Rhythm, Good Perfusion (Laisha Licea) Gastrointestinal/Abdomen GI Exam: Soft, Non-Tender, Bowel Sounds Present (Laisha LiceaP) Musculoskeletal MS Exam: Joints Intact, Unable to Ambulate, Infections (Laisha Licea) Integumentary Skin Exam: Warm, Dry, Ulcer(s) Skin Remarks erythema and edema to bilateral lower extremities blisters left leg open blister right great toe (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) Extremeties Extremities Exam: Pedal Pulses Palpable, Moderate Edema, Dependent Edema (Laisha Licea) Neurologic Neuro Exam: Alert, Awake, Oriented, Speech Clear, Moving All Extremities (Laisha Licea) Psychiatric Psych Exam: Appropriate Responses (Laisha Licea) Assessment/Plan Discussed Condition With: Patient, Spouse Assessment Summary: PATO/Acute Renal Failure, Fluid/Volume Overload, Hypertension, Diabetes Mellitus Problem List: (1) Renal failure (ARF), acute on chronic ICD Codes: N17.9 - Acute kidney failure, unspecified; N18.9 - Chronic kidney disease, unspecified Status: Acute Plan: He has underlying CKD 3. Prior to this admission his baseline was 1.6. PATO most likely due to infection, possibly AIN with recent antibiotic use Renal function improved. Monitor urine output. He is non oliguric.On Lasix 40 mg PO daily Continue present medications, avoid nephrotoxins and dose appropriate to renal status Needs PT/OT as he is severely deconditioned, may benefit from rehab facility. We will follow in CKD clinic if discharged. (2) Cellulitis of both lower extremities ICD Codes: L03.115 - Cellulitis of right lower limb; L03.116 - Cellulitis of left lower limb Status: Acute Plan: ID and wound following Wound culture with pseudomonas On IV Daptomycin, will need conversion to PO for discharge purposes. MANOHAR: arterial insufficiency bilaterally CT shows edema with no fluid collections MRI ordered, pending results. Needs to continue with lymphedema treatments at discharge. (3) HTN (hypertension) ICD Codes: I10 - Essential (primary) hypertension Status: Chronic Plan: Continue present medications (4) Atrial fibrillation ICD Codes: I48.91 - Unspecified atrial fibrillation Status: Chronic Plan: Rate controlled On dose adjusted Coumadin, follow INR Currently therapeutic Plan We will sign off at this time and follow in CKD clinic. (Laisha Licea) Plan patient was seen and examined. Agree with above assessment and plan. (Donny Vidal MD) Problem Qualifiers (1) HTN (hypertension): Qualified Codes: I10 - Essential (primary) hypertension (2) Atrial fibrillation: Qualified Codes: I48.2 - Chronic atrial fibrillation Laisha Licea Nov 12, 2017 11:48 Donny Vidal MD Nov 12, 2017 17:58
--- NOTE | 2017-11-12 13:27 | HHI.IDPN ---
Subjective Subjective Remarks ID COVERAGE 81-year-old male with multiple medical problems including morbid obesity chronic venostasis and BLE lymphedema presented with worsening LE edema , redness, pain in both LE He was started on clindamycin as o/p but was admitted 2/2 worsening of his condition inability to get out of bed Patient also complains of a blister at his right great toe which has ruptured revealing excoriated skin at the dorsal aspect of the right great toe which the patient characterizes as painful. He has CKD with GFR of 30 No fever, but leukocytosis of 13 K with 30% bandemia Blood clx are pending Ruled in by enzymes, NSTEMI Anaphylactic allergic to PCN, but took Keflex recently uneventfully Notes reviewed Temps ok Has dressings to both LE Swelling looks better LLE pain improving Non contrasted CT w/o fluid collections Antibiotics daptomycin Current Medications Medications (Trade) Dose Ordered Sig/Deni Route Start Time Stop Time Status Last Admin (Xanax) 0.5 mg Q8H PRN PO 10/30/17 12:15 11/11/17 08:10 (Lipitor) 20 mg HS PO 10/30/17 21:00 11/11/17 20:30 (Lopressor) 100 mg Q12HR PO 10/30/17 12:15 11/12/17 08:57 (Protonix) 40 mg DAILY PO 10/30/17 12:15 11/12/17 08:58 (Flomax) 0.4 mg HS PO 10/30/17 21:00 11/11/17 20:29 (Eucerin Cream) 1 applic Q6H PRN TOPICAL 10/31/17 16:15 (Colace) 100 mg BID PO 11/01/17 21:00 11/12/17 08:57 (Milk Of Magnesia Liq) 30 ml DAILY PRN PO 11/01/17 14:30 11/08/17 09:06 (Dulcolax Supp) 10 mg DAILY PRN RECTAL 11/01/17 14:30 (Tums Chew) 500 mg Q2H PRN CHEW 11/01/17 14:30 11/01/17 14:56 (Lasix) 40 mg DAILY PO 11/04/17 09:00 11/12/17 08:57 (Percocet 10-325 Mg) 1 tab Q4H PRN PO 6/15/18 15:30 11/11/17 20:35 Pharmacy Profile Note ml @ 0 mls/hr UNSCH OTHER 11/09/17 15:15 (Coumadin) 2.5 mg DAILY@1600 PO 11/09/17 22:00 11/11/17 16:15 Daptomycin 1000 mg/Sodium Chloride 100 ml @ 200 mls/hr Q24H IV 11/10/17 23:00 11/11/17 23:52 Lines Line no evid infection Past Medical History morbid obesity chronic venostasis Allergies: Coded Allergies: azithromycin (Verified Allergy, Severe, UNKNOWN, 05/22/17) enalaprilat (Verified Allergy, Severe, FACIAL EDEMA, 05/22/17) penicillin G (Verified Allergy, Severe, ANAPHYLAXIS, 05/22/17) Objective . Vital Signs Date Time Temp Pulse Resp B/P (MAP) Pulse Ox O2 Delivery O2 Flow Rate FiO2 11/12/17 12:20 98.6 86 20 137/72 (93) 98 11/12/17 08:25 98.4 83 20 123/87 (99) 95 11/12/17 08:00 94 11/12/17 08:00 Room Air 2.00 11/12/17 04:56 Room Air 11/12/17 04:00 75 11/12/17 04:00 98.1 85 17 122/62 (82) 96 11/12/17 00:00 89 11/12/17 00:00 97.5 81 18 119/57 (77) 11/12/17 00:00 98.1 90 17 119/57 (77) 96 11/11/17 20:30 Room Air 11/11/17 20:00 75 11/11/17 20:00 98.3 80 17 118/65 (82) 95 11/11/17 16:30 97.9 80 20 123/60 (81) 93 11/11/17 16:00 86 . Laboratory Tests Test 11/11/17 05:40 White Blood Count 9.7 TH/MM3 Red Blood Count 2.84 MIL/MM3 Hemoglobin 9.7 GM/DL Hematocrit 29.4 % Mean Corpuscular Volume 103.6 FL Mean Corpuscular Hemoglobin 34.0 PG Mean Corpuscular Hemoglobin Concent 32.8 % Red Cell Distribution Width 15.5 % Platelet Count 435 TH/MM3 Mean Platelet Volume 7.4 FL Neutrophils (%) (Auto) 85.7 % Lymphocytes (%) (Auto) 7.7 % Monocytes (%) (Auto) 5.7 % Eosinophils (%) (Auto) 0.2 % Basophils (%) (Auto) 0.7 % Neutrophils # (Auto) 8.4 TH/MM3 Lymphocytes # (Auto) 0.7 TH/MM3 Monocytes # (Auto) 0.6 TH/MM3 Eosinophils # (Auto) 0.0 TH/MM3 Basophils # (Auto) 0.1 TH/MM3 CBC Comment DIFF FINAL Differential Comment Laboratory Tests Test 11/12/17 06:30 Blood Urea Nitrogen 43 MG/DL Creatinine 1.88 MG/DL Random Glucose 94 MG/DL Albumin 2.1 GM/DL Calcium Level 8.7 MG/DL Phosphorus Level 3.2 MG/DL Sodium Level 140 MEQ/L Potassium Level 4.3 MEQ/L Chloride Level 103 MEQ/L Carbon Dioxide Level 29.3 MEQ/L Anion Gap 8 MEQ/L Estimat Glomerular Filtration Rate 42 ML/MIN Imaging Last Impressions Lower Extremity CT 11/06/17 Signed Impressions: CONCLUSION: 1. Diffuse soft tissue swelling likely edema. 2. Degenerative changes of the ankle. Head CT 11/04/17 Signed Impressions: CONCLUSION: 1. Chronic ischemic findings. 2. No acute intracranial findings identified. Extremity Arterial Study 11/03/17 Signed Impressions: CONCLUSION: 1. Mild decrease bilateral ABIs consistent with mild arterial insufficiency. 2. Moderate to severe decrease TBI's characteristic of significant small vesse l disease of the feet. Lower Extremity Ultrasound 10/30/17 Signed Impressions: CONCLUSION: 1. Extensive subcutaneous edema. No drainable fluid collections identified. Chest X-Ray 10/30/17 Signed Impressions: CONCLUSION: Cardiomegaly. Postoperative median sternotomy. No focal infiltrate or significa nt effusion. Physical Exam CONSTITUTIONAL/GENERAL: This is a morbidly obese patient,awake and alert, NAD SKIN: No jaundice, Skin temperature appropriate. Not diaphoretic. Has dry dressings to BLE CARDIOVASCULAR: Regular rate and rhythm without murmurs, gallops, or rubs. No JVD. Peripheral pulses symmetric. RESPIRATORY/CHEST: Symmetric, unlabored respirations. Clear to auscultation. Breath sounds equal bilaterally. No wheezes, rales, or rhonchi. GASTROINTESTINAL: Abdomen soft, non-tender, nondistended. No hepato-splenomegaly , or palpable masses. No guarding. Bowel sounds present. MUSCULOSKELETAL: Extremities without clubbing, cyanosis, Markedly improved edema., Dressings in place, and dry and intact NEUROLOGICAL: Awake and alert. Motor and sensory grossly within normal limits. Follows commands. Confused. Moves all extremities. PSYCHIATRIC: Calm and cooperative Lie no evid of infection Assessment & Plan Remarks Morbid obesity with chronic venostasis BLE cellulitis, LLE persistently infected RLE much improved L LE improved , but thigh is concerning MDRO PSAE from R hallux wound - doubt clinical significance - wound was not purulent and GNB can reperesent colonisation CKD, advanced Low grade coag neg staph bacteremia, doubt clinical signioficance ? MS change leukocytosis - resolved REC: cont daptomycin: (ACP: concern of worsening of renale fnx) - anticipate transition to oral abx prior to dc eventually (?Doxycycline or Zyvox) Needs more improvement before consider for d/c KEEP BLE elevated above heart level Monitor progress Brenda Reyes MD Nov 12, 2017 13:27
[2017-11-12] MEDS: WARFARIN SOD 2.5 MG TAB PO SCH (16:42)
[2017-11-12] MEDS: TAMSULOSIN HCL 0.4 MG CAP PO SCH (20:35)
[2017-11-12] MEDS: ATORVASTATIN 20 MG TAB PO SCH (20:36)
[2017-11-12] MEDS: DAPTOmycin INJ 1,000 MG in SODIUM CHLORIDE 0.9% INJ 100 ML IV SCH (23:56)
[2017-11-13] VITALS (10 sets, daily range): BP systolic 126–153; BP diastolic 58–76; PULSE 84–104; RESP 18; TEMP 97.8–98.6; O2SAT 94–99
[2017-11-13] MEDS: oxyCODONE/ACETAMINOPHEN 10 MG/325 MG TAB PO PRN ×2 (00:17→23:49)
[2017-11-13 08:54] LABS: INTERNATIONAL NORMALIZED RATIO 2.5 RATIO; PROTHROMBIN TIME - PATIENT 24.8 SEC (9.8-11.6)
[2017-11-13] MEDS: METOPROLOL TARTRATE 100 MG TAB PO SCH ×2 (10:03→21:55)
[2017-11-13] MEDS: DOCUSATE SODIUM 100 MG CAP PO SCH ×2 (10:03→21:56)
[2017-11-13] MEDS: PANTOPRAZOLE SOD 40 MG DELAYED RELEASE TAB PO SCH (10:03)
[2017-11-13] MEDS: FUROSEMIDE 40 MG TAB PO SCH ×2 (10:04→21:55)
[2017-11-13 12:09] LABS: BICARBONATE 29.8 MEQ/L (21.0-32.0); CALCIUM 8.6 MG/DL (8.5-10.1); CREATININE 1.9 MG/DL (0.60-1.30); MAGNESIUM 2.3 MG/DL (1.5-2.5)
--- NOTE | 2017-11-13 13:34 | HHI.PR ---
Subjective Remarks No new complaints. Objective Vitals Vital Signs Date Time Temp Pulse Resp B/P (MAP) Pulse Ox O2 Delivery O2 Flow Rate FiO2 11/13/17 09:15 Room Air 11/13/17 04:22 Room Air 11/13/17 04:22 98.2 96 18 146/76 (99) 95 11/13/17 03:46 91 11/12/17 23:44 82 11/12/17 23:08 98.3 80 18 121/58 (79) 97 11/12/17 20:42 Room Air 11/12/17 20:42 98.6 89 18 140/67 (91) 92 11/12/17 19:46 120 11/12/17 16:20 99.0 85 18 129/60 (83) 94 11/12/17 16:00 79 Result Diagram: 11/11/17 0540 11/13/17 1120 Imaging Last Impressions Lower Extremity MRI 11/11/17 0000 Signed Impressions: CONCLUSION: 1. Diffuse extensive nonspecific edema and soft tissue swelling throughout the entire soft tissues involving the left side. 2. No loculated or drainable fluid collection is demonstrated. Lower Extremity CT 11/06/17 0000 Signed Impressions: CONCLUSION: 1. Diffuse soft tissue swelling likely edema. 2. Degenerative changes of the ankle. Head CT 11/04/17 0000 Signed Impressions: CONCLUSION: 1. Chronic ischemic findings. 2. No acute intracranial findings identified. Extremity Arterial Study 11/03/17 0000 Signed Impressions: CONCLUSION: 1. Mild decrease bilateral ABIs consistent with mild arterial insufficiency. 2. Moderate to severe decrease TBI's characteristic of significant small vesse l disease of the feet. Lower Extremity Ultrasound 10/30/17 Signed Impressions: CONCLUSION: 1. Extensive subcutaneous edema. No drainable fluid collections identified. Chest X-Ray 10/30/17 Signed Impressions: CONCLUSION: Cardiomegaly. Postoperative median sternotomy. No focal infiltrate or significa nt effusion. Objective Remarks GENERAL: This is a well-nourished, well-developed patient, in no apparent distress. CARDIOVASCULAR: Regular rate and rhythm without murmurs, gallops, or rubs. RESPIRATORY: Clear to auscultation. Breath sounds equal bilaterally. No wheezes , rales, or rhonchi. GASTROINTESTINAL: Abdomen soft, non-tender, nondistended. Normal active bowel sounds MUSCULOSKELETAL: Extremities without clubbing, cyanosis, or edema. NEURO: Alert & Oriented x4 to person, place, time, situation. Moves all ext x4 Skin: wraps/bandages removed from LLE to examine pt's leg. LLE look significantly better with less edema. However, still erythema on the lateral aspect & tender to palpation. A/P Problem List: (1) Cellulitis of both lower extremities ICD Codes: L03.115 - Cellulitis of right lower limb; L03.116 - Cellulitis of left lower limb Status: Acute Plan: patient is a 81-year-old male with multiple medical problems including coronary artery disease, status post CABG, atrial fibrillation, CHF, chronic kidney disease stage III, chronic lower extremity edema. Patient has chronic lower extremity lymphedema. Pt reports worsening weakness in his knees over the last few months. Pt reports that a few months ago he was able to ambulate short distances in his home using a walker, but he can NO longer ambulate with the walker. Pt was able to transfer independency to his wheelchair, but more recently his LE weakness has progressed to the point where he has NOT been able to independently transfer for the last few days. Pt reports that [facility] comes to his house to provide lymphedema wraps on Mondays and Fridays. Pt is seen by [facility]. He was recently started on clindamycin. He completed only 2 doses. Pt reports that he has had increased pain and swelling to his left leg, particularly laterally at the left thigh and anteriorly below the left knee. Pt reports that he follows with Sports Medicine, Dr. Polo. Pt reports that earlier in the year he had a steroid injection to his knee which initially helped. Pt had kenalog injection of both knees (06/25/17) with some relief to his knee pain. Pt had kenalog injection of both knees (09/26/17) which pt reports provided some relief. Pt subsequently had right knee Synvisc injection (10/06/17) which pt reports did NOT improve his symptoms. Patient also complains of a blister at his right great toe which has ruptured revealing excoriated skin at the dorsal aspect of the right great toe which the patient characterizes as painful. - comgmt with ID and nephrology - Pt received IV Vancomycin in the ER - Daptomycin (10/30 - present) - Blood Cx (10/30) --> staph coag in one bottle (likely contaminant) - toe wound cx shows pseudomonas and mdr.. - b/l LE soft tissue US (10/30) --> extensive subcutaneous edema, but no drainable fluid collections - b/l LE Venous doppler US (10/30) --> No DVTs - podiatry evaluated the pt and recommending compression and local wound care - LLE MRI (11/11) - case d/w Radiology - edema in soft tissue and muscles of the thigh - NO drainable fluid collections - Case d/w Dr. Hillman (11/12/17) - continue Daptomycin - once clinical improvement can change daptomycin to Keflex 500mg QID + doxycycline 100mg BID - will try utilizing pillows to tilt pt to the right to assist left thigh edema. - increase lasix to 40mg PO BID, observe renal function - Pt/ were updated at the bedside (11/13/17). - All questions answered to the best of my ability. - DVT prophylaxis - supportive care. - anticipate d/c to SNF 11/17/17 (2) Chronic acquired lymphedema ICD Codes: I89.0 - Lymphedema, not elsewhere classified Status: Acute Plan: - see above (3) Atrial fibrillation ICD Codes: I48.91 - Unspecified atrial fibrillation Status: Chronic Plan: - continue metoprolol 100mg BID -coumadin on hold for high inr (4) CKD (chronic kidney disease) stage 3, GFR 30-59 ml/min ICD Codes: N18.3 - Chronic kidney disease, stage 3 (moderate) Status: Chronic Plan: - stable (5) HTN (hypertension) ICD Codes: I10 - Essential (primary) hypertension Status: Chronic Plan: above (6) CAD (coronary artery disease) ICD Codes: I25.10 - Atherosclerotic heart disease of [place] coronary artery without angina pectoris Status: Chronic Plan: - metoprolol, lipitor Problem Qualifiers (1) Atrial fibrillation: Qualified Codes: I48.2 - Chronic atrial fibrillation (2) HTN (hypertension): Qualified Codes: I10 - Essential (primary) hypertension (3) CAD (coronary artery disease): Qualified Codes: I25.10 - Atherosclerotic heart disease of [place] coronary artery without angina pectoris Michael Rich DO Nov 13, 2017 13:34
[2017-11-13] MEDS: WARFARIN SOD 2.5 MG TAB PO SCH (15:15)
[2017-11-13] MEDS: ATORVASTATIN 20 MG TAB PO SCH (21:55)
[2017-11-13] MEDS: TAMSULOSIN HCL 0.4 MG CAP PO SCH (21:55)
[2017-11-13] MEDS: DAPTOmycin INJ 1,000 MG in SODIUM CHLORIDE 0.9% INJ 100 ML IV SCH (22:35)
[2017-11-14] VITALS (7 sets, daily range): BP systolic 115–164; BP diastolic 57–75; PULSE 73–110; RESP 18; TEMP 97.4–97.9; O2SAT 95–99
[2017-11-14] MEDS: DOCUSATE SODIUM 100 MG CAP PO SCH ×2 (08:19→20:37)
[2017-11-14] MEDS: METOPROLOL TARTRATE 100 MG TAB PO SCH ×2 (08:19→20:37)
[2017-11-14] MEDS: PANTOPRAZOLE SOD 40 MG DELAYED RELEASE TAB PO SCH (08:19)
[2017-11-14] MEDS: FUROSEMIDE 40 MG TAB PO SCH ×2 (08:19→20:36)
[2017-11-14 08:26] LABS: INTERNATIONAL NORMALIZED RATIO 2.3 RATIO
[2017-11-14] MEDS: oxyCODONE/ACETAMINOPHEN 10 MG/325 MG TAB PO PRN ×3 (09:13→20:37)
--- NOTE | 2017-11-14 09:21 | EKG ---
Date Performed: 11/13/2017 Time Performed: 10:44:00 PTAGE: 82 years EKG: ATRIAL FIBRILLATION ST DEVIATION AND MODERATE T-WAVE ABNORMALITY, CONSIDER LATERAL ISCHEMIA ABNORMAL ECG Since the PREVIOUS TRACING , no significant change noted PREVIOUS TRACIN10/29/2017 23.20 DOCTOR: Connor Wang Interpretating Date/Time 11/14/2017 09:15:57
--- NOTE | 2017-11-14 14:52 | PD.WCN.NOT ---
Wound Consult Description: Patient seen for follow up and bilateral Mead boot change to BLE Communicated with: Adriana meza and Doctor Recommendation: Please keep Emad boot to BLE in place,If patient complains of tightness,Please elevate BLE above heart, and OK to Cut Mead boot ~2cm on each side of the leg and foot if patient complains of increased pain and discomfort, please remove and call wound care. Wound care will apply Mead boot per podiatry order. Additional Information: Patient seen on [address] [place] [address] for BLE mead boot change. Mead boots were last applied on 11/10/2017. Removed Mead boots in place to reveal intact skin to bilateral lower legs. R great toe wound appears to be resolving . Cleansed BLE with soap and water, rinsed and patted dry. Then applied mead boots as follows. Applied Unnas boot calamine paste to BLE, then wrapped BLE with rolled gauze. Then finished Mead boots by wrapping BLE with 4 inch coban wrap. signed and dated mead boots . Patient tolerated procedure well. Leonela Stephens [facility] Nov 14, 2017 14:52
[2017-11-14] MEDS: WARFARIN SOD 2.5 MG TAB PO SCH (16:34)
--- NOTE | 2017-11-14 17:39 | HHI.PR ---
Subjective Remarks Doing ok, legs and feet feel good, PT was a challenge today Objective Vital Signs Date Time Temp Pulse Resp B/P (MAP) Pulse Ox O2 Delivery O2 Flow Rate FiO2 11/14/17 08:27 96 11/14/17 08:00 97.9 81 18 143/75 (97) 96 11/14/17 04:20 84 11/14/17 04:06 97.6 77 18 139/69 (92) 99 11/14/17 00:00 Room Air 11/13/17 23:42 84 11/13/17 23:34 97.8 93 18 126/58 (80) 99 11/13/17 20:00 Room Air 11/13/17 19:42 98.4 93 18 153/71 (98) 94 I/O 11/13/17 11/13/17 11/13/17 11/14/17 11/14/17 11/14/17 07:00 15:00 23:00 07:00 15:00 23:00 Intake Total 340 ml 600 ml 600 ml Output Total 200 ml 400 ml 550 ml 250 ml Balance 140 ml 200 ml 50 ml -250 ml Intake Oral 240 ml 600 ml 600 ml IV Total 100 ml Output Urine Total 200 ml 400 ml 550 ml 250 ml # Voids 1 # Bowel Movements 0 0 1 Result Diagram: 11/11/17 0540 11/13/17 1120 Objective Remarks BL LE with unna boot wrapping no SOI no drainage, Right hallux with shallow ulcer with mainly granular base with no exposed tendon or bone approx 2cm x 1.5cm Good ROm of digits toes pink decreased sensation to light touch and deep pressure BL Medications and IVs Administered Medications Medications (Trade) Dose Ordered Sig/Deni Route PRN Reason Start Time Stop Time Status Last Admin Dose Admin Alprazolam (Xanax) 0.5 mg Q8H PRN PO ANXIETY 10/30/17 12:15 11/11/17 08:10 Atorvastatin Calcium (Lipitor) 20 mg HS PO 10/30/17 21:00 11/13/17 21:55 Metoprolol Tartrate (Lopressor) 100 mg Q12HR PO 10/30/17 12:15 11/14/17 08:19 Pantoprazole Sodium (Protonix) 40 mg DAILY PO 10/30/17 12:15 11/14/17 08:19 Tamsulosin HCl (Flomax) 0.4 mg HS PO 10/30/17 21:00 11/13/17 21:55 Docusate Sodium (Colace) 100 mg BID PO 11/01/17 21:00 11/14/17 08:19 Magnesium Hydroxide (Milk Of Magnesia Liq) 30 ml DAILY PRN PO MILD - MODERATE CONSTIPATION 11/01/17 14:30 11/08/17 09:06 Calcium Carbonate (Tums Chew) 500 mg Q2H PRN CHEW INDIGESTION 11/01/17 14:30 11/01/17 14:56 Oxycodone/ Acetaminophen (Percocet 10-325 Mg) 1 tab Q4H PRN PO pain 1-10 11/07/17 15:30 11/14/17 16:34 Warfarin Sodium (Coumadin) 2.5 mg DAILY@1600 PO 11/09/17 22:00 11/14/17 16:34 Daptomycin 1000 mg/Sodium Chloride 100 ml @ 200 mls/hr Q24H IV 11/10/17 23:00 11/13/17 22:35 Furosemide (Lasix) 40 mg BID PO 11/13/17 21:00 11/14/17 08:19 Assessment and Plan Assessment and Plan BL leg edema with right hallux ulcer Continue woundcare per nursing, Unna boot changes 3-5 days, reconsult PRN. Will FU outpt. Eugenio Vigil DPM Nov 14, 2017 17:39
--- NOTE | 2017-11-14 18:12 | HHI.PR ---
Subjective Remarks Patient feels that his legs are a little better, offers no new concerns/ complaints Objective Vitals Vital Signs Date Time Temp Pulse Resp B/P (MAP) Pulse Ox O2 Delivery O2 Flow Rate FiO2 11/14/17 08:27 96 11/14/17 08:00 97.9 81 18 143/75 (97) 96 11/14/17 04:20 84 11/14/17 04:06 97.6 77 18 139/69 (92) 99 11/14/17 00:00 Room Air 11/13/17 23:42 84 11/13/17 23:34 97.8 93 18 126/58 (80) 99 11/13/17 20:00 Room Air 11/13/17 19:42 98.4 93 18 153/71 (98) 94 11/14/17 11/14/17 11/15/17 15:00 23:00 07:00 Output Total 250 ml Balance -250 ml Output Urine Total 250 ml Result Diagram: 11/11/17 0540 11/13/17 1120 Other Results Laboratory Tests Test 11/12/17 06:30 11/13/17 07:41 11/13/17 11:20 11/14/17 07:31 Prothrombin Time 25.2 SEC 24.8 SEC 23.0 SEC Prothromb Time International Ratio 2.5 RATIO 2.5 RATIO 2.3 RATIO Blood Urea Nitrogen 43 MG/DL 39 MG/DL Creatinine 1.88 MG/DL 1.90 MG/DL Random Glucose 94 MG/DL 120 MG/DL Albumin 2.1 GM/DL Calcium Level 8.7 MG/DL 8.6 MG/DL Phosphorus Level 3.2 MG/DL Sodium Level 140 MEQ/L 141 MEQ/L Potassium Level 4.3 MEQ/L 4.3 MEQ/L Chloride Level 103 MEQ/L 103 MEQ/L Carbon Dioxide Level 29.3 MEQ/L 29.8 MEQ/L Anion Gap 8 MEQ/L 8 MEQ/L Estimat Glomerular Filtration Rate 42 ML/MIN 41 ML/MIN Magnesium Level 2.3 MG/DL Imaging Last Impressions Lower Extremity MRI 11/11/17 0000 Signed Impressions: CONCLUSION: 1. Diffuse extensive nonspecific edema and soft tissue swelling throughout the entire soft tissues involving the left side. 2. No loculated or drainable fluid collection is demonstrated. Lower Extremity CT 11/06/17 0000 Signed Impressions: CONCLUSION: 1. Diffuse soft tissue swelling likely edema. 2. Degenerative changes of the ankle. Head CT 11/04/17 Signed Impressions: CONCLUSION: 1. Chronic ischemic findings. 2. No acute intracranial findings identified. Extremity Arterial Study 11/03/17 Signed Impressions: CONCLUSION: 1. Mild decrease bilateral ABIs consistent with mild arterial insufficiency. 2. Moderate to severe decrease TBI's characteristic of significant small vesse l disease of the feet. Lower Extremity Ultrasound 10/30/17 Signed Impressions: CONCLUSION: 1. Extensive subcutaneous edema. No drainable fluid collections identified. Chest X-Ray 10/30/17 Signed Impressions: CONCLUSION: Cardiomegaly. Postoperative median sternotomy. No focal infiltrate or significa nt effusion. Objective Remarks GENERAL: This is a well-nourished, well-developed patient, in no apparent distress. CARDIOVASCULAR: Regular rate and rhythm without murmurs, gallops, or rubs. RESPIRATORY: Clear to auscultation. Breath sounds equal bilaterally. No wheezes , rales, or rhonchi. GASTROINTESTINAL: Abdomen soft, non-tender, nondistended. Normal active bowel sounds MUSCULOSKELETAL: Extremities without clubbing, cyanosis, or edema. NEURO: Alert & Oriented x4 to person, place, time, situation. Moves all ext x4 Skin: wraps/bandages removed from LLE to examine pt's leg. LLE look significantly better with less edema. However, still erythema on the lateral aspect & tender to palpation. A/P Problem List: (1) Cellulitis of both lower extremities ICD Codes: L03.115 - Cellulitis of right lower limb; L03.116 - Cellulitis of left lower limb Status: Acute Plan: patient is a 81-year-old male with multiple medical problems including coronary artery disease, status post CABG, atrial fibrillation, CHF, chronic kidney disease stage III, chronic lower extremity edema. Patient has chronic lower extremity lymphedema. Pt reports worsening weakness in his knees over the last few months. Pt reports that a few months ago he was able to ambulate short distances in his home using a walker, but he can NO longer ambulate with the walker. Pt was able to transfer independency to his wheelchair, but more recently his LE weakness has progressed to the point where he has NOT been able to independently transfer for the last few days. Pt reports that [facility] comes to his house to provide lymphedema wraps on Mondays and Fridays. Pt is seen by [facility]. He was recently started on clindamycin. He completed only 2 doses. Pt reports that he has had increased pain and swelling to his left leg, particularly laterally at the left thigh and anteriorly below the left knee. Pt reports that he follows with Sports Medicine, Dr. Polo. Pt reports that earlier in the year he had a steroid injection to his knee which initially helped. Pt had kenalog injection of both knees (06/25/17) with some relief to his knee pain. Pt had kenalog injection of both knees (09/26/17) which pt reports provided some relief. Pt subsequently had right knee Synvisc injection (10/06/17) which pt reports did NOT improve his symptoms. Patient also complains of a blister at his right great toe which has ruptured revealing excoriated skin at the dorsal aspect of the right great toe which the patient characterizes as painful. - comgmt with ID and nephrology - Pt received IV Vancomycin in the ER - Daptomycin (10/30 - present) - Blood Cx (10/30) --> staph coag in one bottle (likely contaminant) - toe wound cx shows pseudomonas and mdr.. - b/l LE soft tissue US (10/30) --> extensive subcutaneous edema, but no drainable fluid collections - b/l LE Venous doppler US (10/30) --> No DVTs - podiatry evaluated the pt and recommending compression and local wound care - LLE MRI (11/11) - case d/w Radiology - edema in soft tissue and muscles of the thigh - NO drainable fluid collections - Case d/w Dr. Hillman (11/12/17) - continue Daptomycin - once clinical improvement can change daptomycin to Keflex 500mg QID + doxycycline 100mg BID - will try utilizing pillows to tilt pt to the right to assist left thigh edema. - increase lasix to 40mg PO BID, observe renal function - Pt/ were updated at the bedside (11/13/17). - All questions answered to the best of my ability. - DVT prophylaxis - supportive care. - plan to discuss the case further with ID on Friday - anticipate d/c to SNF 11/17/17 (2) Chronic acquired lymphedema ICD Codes: I89.0 - Lymphedema, not elsewhere classified Status: Acute Plan: - see above (3) Atrial fibrillation ICD Codes: I48.91 - Unspecified atrial fibrillation Status: Chronic Plan: - continue metoprolol 100mg BID -Coumadin resumed (4) CKD (chronic kidney disease) stage 3, GFR 30-59 ml/min ICD Codes: N18.3 - Chronic kidney disease, stage 3 (moderate) Status: Chronic Plan: - stable (5) HTN (hypertension) ICD Codes: I10 - Essential (primary) hypertension Status: Chronic Plan: above (6) CAD (coronary artery disease) ICD Codes: I25.10 - Atherosclerotic heart disease of [place] coronary artery without angina pectoris Status: Chronic Plan: - metoprolol, lipitor Assessment and Plan Patient examined. Assessment and plan formulated with Reva Mandujano PA-C. I agree with the above. Problem Qualifiers (1) Atrial fibrillation: Qualified Codes: I48.2 - Chronic atrial fibrillation (2) HTN (hypertension): Qualified Codes: I10 - Essential (primary) hypertension (3) CAD (coronary artery disease): Qualified Codes: I25.10 - Atherosclerotic heart disease of [place] coronary artery without angina pectoris Reva Mandujano Nov 14, 2017 18:12 Michael Rich DO Nov 15, 2017 23:35
[2017-11-14] MEDS: TAMSULOSIN HCL 0.4 MG CAP PO SCH (20:36)
[2017-11-14] MEDS: ATORVASTATIN 20 MG TAB PO SCH (20:36)
[2017-11-14] MEDS: DAPTOmycin INJ 1,000 MG in SODIUM CHLORIDE 0.9% INJ 100 ML IV SCH (23:39)
[2017-11-15] VITALS (9 sets, daily range): BP systolic 105–162; BP diastolic 51–87; PULSE 73–108; RESP 18–20; TEMP 97.8–98.3; O2SAT 96–99
[2017-11-15 08:27] LABS: AUTOMATED NEUTROPHIL # 7.5 TH/MM3 (1.8-7.7); BASOPHIL # 0.1 TH/MM3 (0-0.2); BASOPHIL % 0.8 % (0.0-2.0); EOSINOPHIL % 0.4 % (0.0-4.0); HEMATOCRIT 28.9 % (39.0-51.0); HEMOGLOBIN 9.6 GM/DL (13.0-17.0); LYMPH % 10.4 % (9.0-44.0); LYMPHOCYTE # 0.9 TH/MM3 (1.0-4.8); MEAN CELL VOLUME 102.4 FL (80.0-100.0); MEAN CORPUSCULAR HEMOGLOBIN 33.8 PG (27.0-34.0); MEAN CORPUSCULAR HGB CONC 33.1 % (32.0-36.0); MEAN PLATELET VOLUME 7.5 FL (7.0-11.0); MONO % 5.2 % (0.0-8.0); MONOCYTE # 0.5 TH/MM3 (0-0.9); NEUT % 83.2 % (16.0-70.0); PLATELET COUNT 445 TH/MM3 (150-450); RED BLOOD COUNT 2.82 MIL/MM3 (4.50-5.90); RED CELL DISTRIBUTION WIDTH 15.5 % (11.6-17.2)
[2017-11-15 08:29] LABS: INTERNATIONAL NORMALIZED RATIO 2.4 RATIO; PROTHROMBIN TIME - PATIENT 23.8 SEC (9.8-11.6)
[2017-11-15 08:53] LABS: BICARBONATE 31.7 MEQ/L (21.0-32.0); CALCIUM 8.7 MG/DL (8.5-10.1); CREATININE 1.81 MG/DL (0.60-1.30); MAGNESIUM 2.1 MG/DL (1.5-2.5)
[2017-11-15] MEDS: PANTOPRAZOLE SOD 40 MG DELAYED RELEASE TAB PO SCH (09:07)
[2017-11-15] MEDS: DOCUSATE SODIUM 100 MG CAP PO SCH ×2 (09:07→22:57)
[2017-11-15] MEDS: FUROSEMIDE 40 MG TAB PO SCH ×2 (09:07→21:00)
[2017-11-15] MEDS: METOPROLOL TARTRATE 100 MG TAB PO SCH ×2 (09:07→21:00)
--- NOTE | 2017-11-15 17:21 | HHI.PR ---
Subjective Remarks No new complaints. Objective Vitals Vital Signs Date Time Temp Pulse Resp B/P (MAP) Pulse Ox O2 Delivery O2 Flow Rate FiO2 11/15/17 12:30 98.3 96 18 136/67 (90) 97 11/15/17 11:53 85 11/15/17 08:51 97.8 86 18 162/82 (108) 96 11/15/17 08:00 Room Air 11/15/17 07:51 93 11/15/17 04:08 97.9 79 18 156/80 (105) 98 11/15/17 04:00 73 11/15/17 00:00 73 11/14/17 23:48 97.9 77 18 136/59 (84) 95 11/14/17 23:48 Room Air 11/14/17 21:37 20 11/14/17 20:00 106 11/14/17 20:00 Room Air 11/14/17 20:00 97.8 73 18 164/72 (102) 96 Result Diagram: 11/15/17 0711 11/15/17 0711 Imaging Last Impressions Lower Extremity MRI 11/11/17 0000 Signed Impressions: CONCLUSION: 1. Diffuse extensive nonspecific edema and soft tissue swelling throughout the entire soft tissues involving the left side. 2. No loculated or drainable fluid collection is demonstrated. Lower Extremity CT 11/06/17 Signed Impressions: CONCLUSION: 1. Diffuse soft tissue swelling likely edema. 2. Degenerative changes of the ankle. Head CT 11/04/17 Signed Impressions: CONCLUSION: 1. Chronic ischemic findings. 2. No acute intracranial findings identified. Extremity Arterial Study 11/03/17 Signed Impressions: CONCLUSION: 1. Mild decrease bilateral ABIs consistent with mild arterial insufficiency. 2. Moderate to severe decrease TBI's characteristic of significant small vesse l disease of the feet. Lower Extremity Ultrasound 10/30/17 Signed Impressions: CONCLUSION: 1. Extensive subcutaneous edema. No drainable fluid collections identified. Chest X-Ray 10/30/17 Signed Impressions: CONCLUSION: Cardiomegaly. Postoperative median sternotomy. No focal infiltrate or significa nt effusion. Objective Remarks GENERAL: This is a well-nourished, well-developed patient, in no apparent distress. CARDIOVASCULAR: Regular rate and rhythm without murmurs, gallops, or rubs. RESPIRATORY: Clear to auscultation. Breath sounds equal bilaterally. No wheezes , rales, or rhonchi. GASTROINTESTINAL: Abdomen soft, non-tender, nondistended. Normal active bowel sounds MUSCULOSKELETAL: Extremities without clubbing, cyanosis, or edema. NEURO: Alert & Oriented x4 to person, place, time, situation. Moves all ext x4 Skin: wraps/bandages removed from LLE to examine pt's leg. LLE look significantly better with less edema. However, still erythema on the lateral aspect & tender to palpation. A/P Problem List: (1) Cellulitis of both lower extremities ICD Codes: L03.115 - Cellulitis of right lower limb; L03.116 - Cellulitis of left lower limb Status: Acute Plan: patient is a 81-year-old male with multiple medical problems including coronary artery disease, status post CABG, atrial fibrillation, CHF, chronic kidney disease stage III, chronic lower extremity edema. Patient has chronic lower extremity lymphedema. Pt reports worsening weakness in his knees over the last few months. Pt reports that a few months ago he was able to ambulate short distances in his home using a walker, but he can NO longer ambulate with the walker. Pt was able to transfer independency to his wheelchair, but more recently his LE weakness has progressed to the point where he has NOT been able to independently transfer for the last few days. Pt reports that [facility] comes to his house to provide lymphedema wraps on Mondays and Fridays. Pt is seen by [facility]. He was recently started on clindamycin. He completed only 2 doses. Pt reports that he has had increased pain and swelling to his left leg, particularly laterally at the left thigh and anteriorly below the left knee. Pt reports that he follows with Sports Medicine, Dr. Polo. Pt reports that earlier in the year he had a steroid injection to his knee which initially helped. Pt had kenalog injection of both knees (06/25/17) with some relief to his knee pain. Pt had kenalog injection of both knees (09/26/17) which pt reports provided some relief. Pt subsequently had right knee Synvisc injection (10/06/17) which pt reports did NOT improve his symptoms. Patient also complains of a blister at his right great toe which has ruptured revealing excoriated skin at the dorsal aspect of the right great toe which the patient characterizes as painful. - comgmt with ID and nephrology - Pt received IV Vancomycin in the ER - Daptomycin (10/30 - present) - Blood Cx (10/30) --> staph coag in one bottle (likely contaminant) - toe wound cx shows pseudomonas and mdr.. - b/l LE soft tissue US (10/30) --> extensive subcutaneous edema, but no drainable fluid collections - b/l LE Venous doppler US (10/30) --> No DVTs - podiatry evaluated the pt and recommending compression and local wound care - LLE MRI (11/11) - case d/w Radiology - edema in soft tissue and muscles of the thigh - NO drainable fluid collections - Case d/w Dr. Hillman (11/12/17) - continue Daptomycin - once clinical improvement can change daptomycin to Keflex 500mg QID + doxycycline 100mg BID - will try utilizing pillows to tilt pt to the right to assist left thigh edema. - lasix 40mg PO BID, observe renal function - Pt/ were updated at the bedside (11/15/17). - All questions answered to the best of my ability. - DVT prophylaxis - supportive care. - Pt interviewed and examined 11/15/17. - continued current treatment plan as outlined above. - anticipate d/c to SNF 11/17/17 (2) Chronic acquired lymphedema ICD Codes: I89.0 - Lymphedema, not elsewhere classified Status: Acute Plan: - see above (3) Atrial fibrillation ICD Codes: I48.91 - Unspecified atrial fibrillation Status: Chronic Plan: - continue metoprolol 100mg BID -Coumadin resumed (4) CKD (chronic kidney disease) stage 3, GFR 30-59 ml/min ICD Codes: N18.3 - Chronic kidney disease, stage 3 (moderate) Status: Chronic Plan: - stable (5) HTN (hypertension) ICD Codes: I10 - Essential (primary) hypertension Status: Chronic Plan: above (6) CAD (coronary artery disease) ICD Codes: I25.10 - Atherosclerotic heart disease of [place] coronary artery without angina pectoris Status: Chronic Plan: - metoprolol, lipitor Problem Qualifiers (1) Atrial fibrillation: Qualified Codes: I48.2 - Chronic atrial fibrillation (2) HTN (hypertension): Qualified Codes: I10 - Essential (primary) hypertension (3) CAD (coronary artery disease): Qualified Codes: I25.10 - Atherosclerotic heart disease of [place] coronary artery without angina pectoris Michael Rich DO Nov 15, 2017 17:21
[2017-11-15] MEDS: WARFARIN SOD 2.5 MG TAB PO SCH (17:25)
[2017-11-15] MEDS ORDERED: METOPROLOL TARTRATE 50 MG TAB PO SCH (22:15)
[2017-11-15] MEDS: ATORVASTATIN 20 MG TAB PO SCH (22:57)
[2017-11-15] MEDS: TAMSULOSIN HCL 0.4 MG CAP PO SCH (22:57)
[2017-11-15] MEDS: DAPTOmycin INJ 1,000 MG in SODIUM CHLORIDE 0.9% INJ 100 ML IV SCH (22:57)
[2017-11-16] VITALS: BP 92/53; PULSE 88; RESP 18; TEMP 98.7; O2SAT 97
[2017-11-16 04:00] VITALS: BP 118/57; PULSE 68; RESP 17; TEMP 99.2; O2SAT 94
[2017-11-16 08:20] VITALS: BP 150/67; PULSE 87; RESP 20; TEMP 98.8; O2SAT 94
[2017-11-16 08:43] LABS: INTERNATIONAL NORMALIZED RATIO 2.5 RATIO; PROTHROMBIN TIME - PATIENT 25.7 SEC (9.8-11.6)
[2017-11-16] MEDS: DOCUSATE SODIUM 100 MG CAP PO SCH ×2 (09:00→21:17)
[2017-11-16] MEDS: FUROSEMIDE 40 MG TAB PO SCH ×2 (09:56→21:17)
[2017-11-16] MEDS: METOPROLOL TARTRATE 100 MG TAB PO SCH ×2 (09:56→21:17)
[2017-11-16] MEDS: PANTOPRAZOLE SOD 40 MG DELAYED RELEASE TAB PO SCH (09:56)
[2017-11-16 12:10] VITALS: BP 140/75; PULSE 85; RESP 20; TEMP 98.7; O2SAT 94
--- NOTE | 2017-11-16 15:51 | HHI.DS ---
Discharge Summary Admission Date Oct 30, 2017 at 02:12 Discharge Date: Nov 17, 2017 Admitting Diagnosis elevated trop afib (1) Cellulitis of both lower extremities Diagnosis: Principal ICD Codes: L03.115 - Cellulitis of right lower limb; L03.116 - Cellulitis of left lower limb Status: Acute (2) Chronic acquired lymphedema Diagnosis: Secondary ICD Codes: I89.0 - Lymphedema, not elsewhere classified Status: Acute (3) Atrial fibrillation Diagnosis: Secondary ICD Codes: I48.91 - Unspecified atrial fibrillation Status: Chronic (4) CKD (chronic kidney disease) stage 3, GFR 30-59 ml/min Diagnosis: Secondary ICD Codes: N18.3 - Chronic kidney disease, stage 3 (moderate) Status: Chronic (5) HTN (hypertension) Diagnosis: Secondary ICD Codes: I10 - Essential (primary) hypertension Status: Chronic (6) CAD (coronary artery disease) Diagnosis: Secondary ICD Codes: I25.10 - Atherosclerotic heart disease of [place] coronary artery without angina pectoris Status: Chronic Consultants Dr. Hillman, Infectious Disease Dr. Holden, Podiatry Dr. Vidal, Nephrology Brief History Patient patient is a 81-year-old male with multiple medical problems including coronary artery disease, status post CABG, atrial fibrillation, CHF, chronic kidney disease stage III, chronic lower extremity edema. Patient has chronic lower extremity lymphedema. Pt was interviewed at the bedside. I also spoke with his by phone which helped with some of the details. However, exact time course of pt's worsening LE edema and right leg cellulitis NOT completely clear. Pt reports worsening weakness in his knees over the last few months. Pt reports that a few months ago he was able to ambulate short distances in his home using a walker, but he can NO longer ambulate with the walker. Pt was able to transfer independency to his wheelchair, but more recently his LE weakness has progressed to the point where he has NOT been able to independently transfer for the last few days. Pt reports that [facility] comes to his house to provide lymphedema wraps on Mondays and Fridays. Pt is seen by [facility]. He was recently started on clindamycin. He completed only 2 doses. Yesterday pt was NOT able to transfer out of his bed even with the help of his and son. Pt reports that he has had increased pain and swelling to his left leg, particularly laterally at the left thigh and anteriorly below the left knee. Pt reports that he follows with Sports Medicine, Dr. Polo. Pt reports that earlier in the year he had a steroid injection to his knee which initially helped. Pt had kenalog injection of both knees (06/25/17) with some relief to his knee pain. Pt had kenalog injection of both knees (09/26/17) which pt reports provided some relief. Pt subsequently had right knee Synvisc injection (10/06/17) which pt reports did NOT improve his symptoms. Patient also complains of a blister at his right great toe which has ruptured revealing excoriated skin at the dorsal aspect of the right great toe which the patient characterizes as painful. Pt will be admitted to [facility] for further evaluation and treatment. CBC/BMP: 11/15/17 0711 11/15/17 0711 Significant Findings Laboratory Tests Test 11/14/17 07:31 11/15/17 07:11 11/16/17 08:16 Prothrombin Time 23.0 SEC (9.8-11.6) 23.8 SEC (9.8-11.6) 25.7 SEC (9.8-11.6) Red Blood Count 2.82 MIL/MM3 (4.50-5.90) Hemoglobin 9.6 GM/DL (13.0-17.0) Hematocrit 28.9 % (39.0-51.0) Mean Corpuscular Volume 102.4 FL (80.0-100.0) Neutrophils (%) (Auto) 83.2 % (16.0-70.0) Lymphocytes # (Auto) 0.9 TH/MM3 (1.0-4.8) Blood Urea Nitrogen 33 MG/DL (7-18) Creatinine 1.81 MG/DL (0.60-1.30) Estimat Glomerular Filtration Rate 44 ML/MIN (>89) PE at Discharge GENERAL: This is a well-nourished, well-developed patient, in no apparent distress. CARDIOVASCULAR: Regular rate and rhythm without murmurs, gallops, or rubs. RESPIRATORY: Clear to auscultation. Breath sounds equal bilaterally. No wheezes , rales, or rhonchi. GASTROINTESTINAL: Abdomen soft, non-tender, nondistended. Normal active bowel sounds MUSCULOSKELETAL: Extremities without clubbing, cyanosis, or edema. NEURO: Alert & Oriented x4 to person, place, time, situation. Moves all ext x4 Skin: wraps/bandages removed from LLE to examine pt's leg. LLE look significantly better with less edema. However, still erythema on the lateral aspect & tender to palpation. Hospital Course (1) Cellulitis of both lower extremities ICD Codes: L03.115 - Cellulitis of right lower limb; L03.116 - Cellulitis of left lower limb Status: Acute Plan: patient is a 81-year-old male with multiple medical problems including coronary artery disease, status post CABG, atrial fibrillation, CHF, chronic kidney disease stage III, chronic lower extremity edema. Patient has chronic lower extremity lymphedema. Pt reports worsening weakness in his knees over the last few months. Pt reports that a few months ago he was able to ambulate short distances in his home using a walker, but he can NO longer ambulate with the walker. Pt was able to transfer independency to his wheelchair, but more recently his LE weakness has progressed to the point where he has NOT been able to independently transfer for the last few days. Pt reports that [facility] comes to his house to provide lymphedema wraps on Mondays and Fridays. Pt is seen by [facility]. He was recently started on clindamycin. He completed only 2 doses. Pt reports that he has had increased pain and swelling to his left leg, particularly laterally at the left thigh and anteriorly below the left knee. Pt reports that he follows with Sports Medicine, Dr. Polo. Pt reports that earlier in the year he had a steroid injection to his knee which initially helped. Pt had kenalog injection of both knees (06/25/17) with some relief to his knee pain. Pt had kenalog injection of both knees (09/26/17) which pt reports provided some relief. Pt subsequently had right knee Synvisc injection (10/06/17) which pt reports did NOT improve his symptoms. Patient also complains of a blister at his right great toe which has ruptured revealing excoriated skin at the dorsal aspect of the right great toe which the patient characterizes as painful. - comgmt with ID and nephrology - Pt received IV Vancomycin in the ER - Daptomycin (10/30 - 11/16) - Blood Cx (10/30) --> staph coag in one bottle (likely contaminant) - toe wound cx shows pseudomonas and mdr.. - b/l LE soft tissue US (10/30) --> extensive subcutaneous edema, but no drainable fluid collections - b/l LE Venous doppler US (10/30) --> No DVTs - podiatry evaluated the pt and recommending compression and local wound care - LLE MRI (11/11) - case d/w Radiology - edema in soft tissue and muscles of the thigh - NO drainable fluid collections - Case d/w Dr. Hillman (11/12/17) - continue Daptomycin - once clinical improvement can change daptomycin to Keflex 500mg QID + doxycycline 100mg BID - will try utilizing pillows to tilt pt to the right to assist left thigh edema. - lasix 40mg PO BID, observe renal function - Pt/ were updated at the bedside (11/15/17). - All questions answered to the best of my ability. - DVT prophylaxis - supportive care. - Start keflex 500mg QID - start doxycycline 100mg BID - discharge to SNF in the AM (2) Chronic acquired lymphedema ICD Codes: I89.0 - Lymphedema, not elsewhere classified - continue triple layer alisa boot per Podiatry specifications (3) Atrial fibrillation ICD Codes: I48.91 - Unspecified atrial fibrillation Status: Chronic Plan: - continue metoprolol 100mg BID -Coumadin resumed (4) CKD (chronic kidney disease) stage 3, GFR 30-59 ml/min ICD Codes: N18.3 - Chronic kidney disease, stage 3 (moderate) Status: Chronic Plan: - stable (5) HTN (hypertension) ICD Codes: I10 - Essential (primary) hypertension Status: Chronic Plan: above (6) CAD (coronary artery disease) ICD Codes: I25.10 - Atherosclerotic heart disease of [place] coronary artery without angina pectoris Status: Chronic Plan: - metoprolol, lipitor Pt Condition on Discharge: Stable Discharge Disposition: Discharge to SNF Discharge Instructions DIET: Follow Instructions for: Heart Healthy Diet, Diabetic Diet Activities you can perform: Weight Bearing as Be[place] Follow up Referrals: Nephrology - [address] Donny Vidal PCP Follow-up - [address] Vipul Zambrano F/U with PCP, Dr. Vipul Zambrano, one week after discharge from SNF Podiatry - 2 Weeks with Cynthia Holden DPM New Medications: Cephalexin (Cephalexin) 500 Mg Cap 500 MG PO Q6HR for cellulitis for 5 Days, CAP 0 Refills Docusate Sodium (Dok) 100 Mg Cap 100 MG PO BID for constipation for 30 Days, #60 CAP Doxycycline Hyclate (Doxycycline Hyclate) 100 Mg Cap 100 MG PO BID for cellulitis for 5 Days, #10 CAP 0 Refills Furosemide (Furosemide) 40 Mg Tab 40 MG PO BID for edema for 30 Days, #60 TAB 0 Refills Hold for SBP below 1100 Magnesium Hydroxide (Qc Milk of Magnesia) 400 Mg/5 Ml [place] 30 ML PO DAILY PRN for MILD - MODERATE CONSTIPATION for 30 Days, #900 ML 0 Refills Oxycodone HCl/Acetaminophen (Oxycodone-Acetaminophen 10-325) 10 Mg-325 Mg Tablet 1 TAB PO Q4H PRN for pain 1-10, #30 TAB 0 Refills Warfarin (Coumadin) 2.5 Mg Tab 2.5 MG PO DAILY@1600 for atrial fibrillation for 30 Days, TAB 0 Refills [Calcium Carbonate Chew] () 500 MG CHEW 500 MG CHEW Q2H PRN for INDIGESTION for 30 Days, #360 TAB 0 Refills Continued Medications: Alprazolam (Xanax) 0.5 Mg Tab 0.5 MG PO Q8H PRN for ANXIETY, #90 TAB 0 Refills (This prescription has been renewed) Atorvastatin (Atorvastatin) 20 Mg Tab 20 MG PO HS for Cholesterol Management, #30 TAB 0 Refills Metoprolol Tartrate (Lopressor) 100 Mg Tab 100 MG PO Q12HR for blood pressure/ heart rate, #60 TAB 0 Refills Pantoprazole (Pantoprazole) 40 Mg Tab 40 MG PO DAILY for Reflux, #30 TAB 0 Refills Tamsulosin (Tamsulosin) 0.4 Mg Cap 0.4 MG PO HS for Manage Prostate Problems, #30 CAP 0 Refills Discontinued Medications: Acetaminophen-Codeine (Tylenol-Codeine #3) 300-30 mg Tab 1-2 TAB PO Q6H PRN for PAIN, TAB 0 Refills Clindamycin (Clindamycin) 300 Mg Cap 300 MG PO TID for Infection, #21 CAP 0 Refills Furosemide (Furosemide) 40 Mg Tab 40 MG PO DAILY, #30 TAB 0 Refills Losartan (Losartan) 50 Mg Tab 50 MG PO DAILY for Blood Pressure Management, #30 TAB 0 Refills Warfarin (Warfarin) 3 Mg Tab 3 MG PO DAILY for Blood Clot Prevention, #30 TAB 0 Refills [Megestrol Liq] () 400 MG/10 ML SUSP 400 MG PO DAILY for appetite, #30 EACH 0 Refills Michael Rich DO Nov 16, 2017 15:51
[2017-11-16] MEDS ORDERED: CEPH500C PO (16:01)
[2017-11-16] MEDS ORDERED: DOXY100C PO (16:01)
[2017-11-16] MEDS ORDERED: DOCU1CAP39 PO (16:01)
[2017-11-16] MEDS ORDERED: ALPR.5 PO (16:01)
[2017-11-16] MEDS ORDERED: COUM2.5T PO (16:01)
[2017-11-16] MEDS ORDERED: MAGN30S PO (16:01)
[2017-11-16] MEDS ORDERED: FURO40TA PO (16:01)
[2017-11-16] MEDS ORDERED: OXYC1TAB36 PO (16:01)
[2017-11-16] MEDS ORDERED: Calcium Carbonate Chew CHEW (16:01)
[2017-11-16 16:24] VITALS: BP 174/70; PULSE 82; RESP 20; TEMP 98.4; O2SAT 95
[2017-11-16] MEDS: WARFARIN SOD 2.5 MG TAB PO SCH (17:00)
[2017-11-16] MEDS: CEPHALEXIN MONOHYDRATE 500 MG CAP PO SCH ×2 (17:00→23:51)
[2017-11-16 20:00] VITALS: BP 135/61; PULSE 89; RESP 18; TEMP 98.1; O2SAT 94
[2017-11-16] MEDS: TAMSULOSIN HCL 0.4 MG CAP PO SCH (21:17)
[2017-11-16] MEDS: ATORVASTATIN 20 MG TAB PO SCH (21:17)
[2017-11-16] MEDS: DOXYCYCLINE HYCLATE 100 MG CAP PO SCH (21:18)
[2017-11-17] VITALS: BP 125/65; PULSE 83; RESP 18; TEMP 98.4; O2SAT 97
[2017-11-17 04:00] VITALS: BP 148/76; PULSE 75; RESP 16; TEMP 98.4; O2SAT 98
[2017-11-17] MEDS: CEPHALEXIN MONOHYDRATE 500 MG CAP PO SCH ×2 (06:03→11:51)
[2017-11-17 08:00] VITALS: BP 133/65; PULSE 92; RESP 20; TEMP 98.4; O2SAT 96
[2017-11-17] MEDS: METOPROLOL TARTRATE 100 MG TAB PO SCH (09:26)
[2017-11-17] MEDS: FUROSEMIDE 40 MG TAB PO SCH (09:26)
[2017-11-17] MEDS: DOXYCYCLINE HYCLATE 100 MG CAP PO SCH (09:26)
[2017-11-17] MEDS: DOCUSATE SODIUM 100 MG CAP PO SCH (09:26)
[2017-11-17] MEDS: PANTOPRAZOLE SOD 40 MG DELAYED RELEASE TAB PO SCH (09:26)
[2017-11-17 11:37] LABS: INTERNATIONAL NORMALIZED RATIO 2.5 RATIO; PROTHROMBIN TIME - PATIENT 24.9 SEC (9.8-11.6)
[2017-11-17] MEDS: MAGNESIUM HYDROXIDE SUSP 30 ML CUP PO PRN (11:51)
--- NOTE | 2017-11-17 14:42 | PD.WCN.NOT ---
Wound Consult Description: Patient seen for follow up and bilateral Mead boot change to BLE Recommendation: Please keep Mead boot to BLE in place,If patient complains of tightness,Please elevate BLE above heart, and OK to Cut Mead boot ~2cm on each side of the leg and foot if patient complains of increased pain and discomfort, please remove and call wound care. Wound care will apply Mead boot per podiatry order. Additional Information: Patient seen on for BLE mead boot change. Mead boots were last applied on 11/14/2017. Removed Mead boots in place to reveal intact skin to bilateral lower legs. R great toe wound appears to be resolving . Cleansed BLE with soap and water, rinsed and patted dry. Then applied mead boots as follows. Applied Unnas boot calamine paste to BLE, then wrapped BLE with rolled gauze. Then finished Mead boots by wrapping BLE with 4 inch coban wrap. signed and dated mead boots . Patient tolerated procedure well.Applied oil emulsion gauze over resolving R great toe wound covered with dry 4x4 gauze pad secured with tape. Leonela Stephens CRN Nov 17, 2017 14:42
== END 2017-11-17 14:29 | DRG 602 ==
LOC: NEPE 00:04 → NEDA 02:12 → HCIS 10:02 → N04B 10-31 16:38
PROVIDERS: ADMIT Hospitalist; ATTEND Hospitalist
DX: L03.116 Cellulitis of left lower limb (principal); I21.4 Non-ST elevation (NSTEMI) myocardial infarction; N17.9 Acute kidney failure, unspecified; L03.115 Cellulitis of right lower limb; I13.0 Hypertensive heart and chronic kidney disease with heart failure and stage 1 through stage 4 chronic kidney disease, or unspecified chronic kidney disease; Z68.41 Body mass index [BMI] 40.0-44.9, adult; L97.829 Non-pressure chronic ulcer of other part of left lower leg with unspecified severity; L97.819 Non-pressure chronic ulcer of other part of right lower leg with unspecified severity; S90.421A Blister (nonthermal), right great toe, initial encounter; I50.9 Heart failure, unspecified; E11.22 Type 2 diabetes mellitus with diabetic chronic kidney disease; I48.2 Chronic atrial fibrillation; N18.3 Chronic kidney disease, stage 3 (moderate); D64.9 Anemia, unspecified; M19.90 Unspecified osteoarthritis, unspecified site; I25.10 Atherosclerotic heart disease of native coronary artery without angina pectoris; E78.00 Pure hypercholesterolemia, unspecified; Z86.73 Personal history of transient ischemic attack (TIA), and cerebral infarction without residual deficits; K21.9 Gastro-esophageal reflux disease without esophagitis; M10.9 Gout, unspecified; I25.2 Old myocardial infarction; Z87.891 Personal history of nicotine dependence; E66.01 Morbid (severe) obesity due to excess calories; I89.0 Lymphedema, not elsewhere classified; G47.33 Obstructive sleep apnea (adult) (pediatric); I70.0 Atherosclerosis of aorta; Z79.01 Long term (current) use of anticoagulants; Z86.718 Personal history of other venous thrombosis and embolism; Z88.0 Allergy status to penicillin; Z89.429 Acquired absence of other toe(s), unspecified side; L97.519 Non-pressure chronic ulcer of other part of right foot with unspecified severity; B96.5 Pseudomonas (aeruginosa) (mallei) (pseudomallei) as the cause of diseases classified elsewhere; Z95.1 Presence of aortocoronary bypass graft; E11.621 Type 2 diabetes mellitus with foot ulcer
CPT/HCPCS: 70450; 71046; 73700; 73720; 76882; 76937; 80048; 80053; 80069; 80076; 80202; 81001; 82550; 83605; 83690; 83735; 83880; 84484; 85007; 85025; 85027; 85610; 86403; 87040; 87070; 87077; 87086; 87186; 87205; 93005; 93922; 93970; 96365; A9577; J0878; J1644; J1940; J3370; J7040; J7050

== ENCOUNTER 2017-11-29 19:43 | Inpatient (IN) ==
--- NOTE | 2017-11-29 20:32 | ED ---
HPI General Chief complaint: Fever Stated complaint: Evac/Fever/Ams Time Seen by Provider: 11/29/17 20:28 History of Present Illness HPI narrative: Patient presents to the emergency department 4 "the ambulance that I had sepsis." Recently discharged for cellulitis bilateral lower extremities and sent home on on Keflex and doxycycline. He denies fever, shortness of breath, chest pain but reports cough and chills and abdominal pain and diarrhea. The pain is described as being diffuse and started when he was admitted to the hospital and is nonbloody. Related Data Allergies Allergy/AdvReac Type Severity Reaction Status Date / Time azithromycin Allergy Severe UNKNOWN Verified 05/22/17 09:11 enalaprilat Allergy Severe FACIAL Verified 05/22/17 09:11 EDEMA penicillin G Allergy Severe ANAPHYLAXIS Verified 05/22/17 09:11 Review of Systems ROS Unobtainable All other systems reviewed negative except as stated in HPI [facility] Medical History Medical History Atrial fibrillation (Acute) Gastric ulcer (Acute) CHF (congestive heart failure) (Acute) Hypertension (Acute) Social History Social History Second Hand Smoke Exposure: Yes Smoking Status: Never smoker How Often Do You Have a Drink Containing Alcohol: Never Recent Travel in [facility] within the Last 8 Weeks: No Recent Out of Country Travel within the Last 8 Weeks: No Immunization History Tetanus Immunization: <5 Years Hx Influenza Vaccine This Season: Yes Exam Narrative Exam Narrative: GENERAL: No acute distress SKIN: Focused skin assessment warm/dry. HEAD: Atraumatic. Normocephalic. EYES: Pupils equal and round. No scleral icterus. No injection or drainage. ENT: No nasal bleeding or discharge. Mucous membranes pink and moist. NECK: Trachea midline. No JVD. CARDIOVASCULAR: Regular rate and rhythm. No murmur appreciated. RESPIRATORY: No accessory muscle use. Crackles and wheezes at right lung base. GASTROINTESTINAL: Abdomen soft, obese, nondistended, LLQ TTP. Hepatic and splenic margins not palpable. MUSCULOSKELETAL: No obvious deformities. No clubbing. No cyanosis. Bilateral lower extremity edema, erythematous. NEUROLOGICAL: Awake and alert. No obvious cranial nerve deficits. Motor grossly within normal limits. Normal speech. PSYCHIATRIC: Appropriate mood and affect; insight and judgment normal. Course Initial Documented Vital Signs Temperature 100.7 F H 11/29/17 20:03 Pulse Rate 90 11/29/17 20:03 Respiratory Rate 20 11/29/17 20:03 Blood Pressure 137/71 11/29/17 20:03 Last Documented Vital Signs Temperature 100.7 F H 11/29/17 20:03 Pulse Rate 90 11/29/17 20:03 Respiratory Rate 20 11/29/17 20:03 Blood Pressure 137/71 11/29/17 20:03 Medical Decision Making MDM Narrative Medical decision making narrative: Patient recently discharged from the hospital complaining of possible infection peer reporting productive cough abdominal pain and diarrhea. Patient placed on flow nurse, continuous pulse ox place, IV access obtained. CT abdomen pelvis, chest x-ray, labs, EKG ordered. Labs: elevated wbc count, decrease Hgb/HCT; chem-troponin increased (chronic), T bili increased, lipase increased, BUN/creatinine increased CXR: CONCLUSION: Cardiomegaly. Mild basilar atelectasis. Previous sternotomy. Ct abd/pelvis: CONCLUSION:1. No acute findings within the abdomen and pelvis. Small hiatal hernia. Atrophic right kidney.2. Mild 3.4 cm distal abdominal aortic aneurysm.3. Extensive stranding of fat in the lateral abdominal wall bilaterally, probably anasarca although bruising could have a similar appearance. ECG: poor quality, a fib with PVCs Patient given 1gram IV vancomycin and admitted. UA pending at time of admit, admit MD to follow. Differential Diagnosis Differential Diagnosis: Pneumonia, C. difficile, diverticulitis, colitis, sepsis Lab Data Result diagrams: 11/29/17 20:35 11/29/17 20:35 Lab Results 11/29/17 11/29/17 11/29/17 Range/Units 20:35 20:35 20:35 WBC 18.3 H (4.0-11.0) th/mm3 RBC 3.04 L (4.50-5.90) mil/mm3 Hgb 9.9 L (13.0-17.0) gm/dL Hct 30.6 L (39.0-51.0) % MCV 100.8 H (80.0-100.0) fL MCH 32.6 (27.0-34.0) pg MCHC 32.4 (32.0-36.0) % RDW 15.7 (11.6-17.2) % Plt Count 275 (150-450) th/mm3 MPV 8.3 (7.0-11.0) fL Neut % (Auto) 92.8 H (16.0-70.0) % Lymph % (Auto) 4.2 L (9.0-44.0) % [place] % (Auto) 1.9 (0.0-8.0) % Eos % (Auto) 0.4 (0.0-4.0) % Baso % (Auto) 0.7 (0.0-2.0) % Neut # (Auto) 16.9 H (1.8-7.7) th/mm3 Lymph # (Auto) 0.8 L (1.0-4.8) th/mm3 [place] # (Auto) 0.3 (0.0-0.9) th/mm3 Eos # (Auto) 0.1 (0.0-0.4) th/mm3 Baso # (Auto) 0.1 (0.0-0.2) th/mm3 WBC Differential . Differential Comment Auto diff final PT 16.2 H (9.8-11.6) sec INR 1.6 Ratio APTT 24.9 (24.3-30.1) sec Sodium 143 (136-145) meq/L Potassium 3.7 (3.5-5.1) meq/L Chloride 105 (98-107) meq/L Carbon Dioxide 27.1 (21.0-32.0) meq/L Anion Gap 11 (5-15) meq/L BUN 27 H (7-18) mg/dL Creatinine 1.83 H (0.60-1.30) mg/dL Estimated GFR 43 L (>89) mL/min Random Glucose 96 (74-106) mg/dL Lactic Acid (0.4-2.0) mmol/L Calcium 8.7 (8.5-10.1) mg/dL Magnesium 1.6 (1.5-2.5) mg/dL Total Bilirubin 1.8 H (0.2-1.0) mg/dL AST 23 (15-37) U/L ALT 22 (12-78) U/L Alkaline Phosphatase 88 (45-117) U/L Total Creatine Kinase 33 L (39-308) U/L Troponin I 0.90 H* (0.02-0.05) ng/mL Total Protein 7.2 (6.4-8.2) g/dL Albumin 2.7 L (3.4-5.0) g/dL Lipase 646 H (73-393) U/L 11/29/17 Range/Units 20:35 WBC (4.0-11.0) th/mm3 RBC (4.50-5.90) mil/mm3 Hgb (13.0-17.0) gm/dL Hct (39.0-51.0) % MCV (80.0-100.0) fL MCH (27.0-34.0) pg MCHC (32.0-36.0) % RDW (11.6-17.2) % Plt Count (150-450) th/mm3 MPV (7.0-11.0) fL Neut % (Auto) (16.0-70.0) % Lymph % (Auto) (9.0-44.0) % [place] % (Auto) (0.0-8.0) % Eos % (Auto) (0.0-4.0) % Baso % (Auto) (0.0-2.0) % Neut # (Auto) (1.8-7.7) th/mm3 Lymph # (Auto) (1.0-4.8) th/mm3 [place] # (Auto) (0.0-0.9) th/mm3 Eos # (Auto) (0.0-0.4) th/mm3 Baso # (Auto) (0.0-0.2) th/mm3 WBC Differential Differential Comment PT (9.8-11.6) sec INR Ratio APTT (24.3-30.1) sec Sodium (136-145) meq/L Potassium (3.5-5.1) meq/L Chloride (98-107) meq/L Carbon Dioxide (21.0-32.0) meq/L Anion Gap (5-15) meq/L BUN (7-18) mg/dL Creatinine (0.60-1.30) mg/dL Estimated GFR (>89) mL/min Random Glucose (74-106) mg/dL Lactic Acid 1.5 (0.4-2.0) mmol/L Calcium (8.5-10.1) mg/dL Magnesium (1.5-2.5) mg/dL Total Bilirubin (0.2-1.0) mg/dL AST (15-37) U/L ALT (12-78) U/L Alkaline Phosphatase (45-117) U/L Total Creatine Kinase (39-308) U/L Troponin I (0.02-0.05) ng/mL Total Protein (6.4-8.2) g/dL Albumin (3.4-5.0) g/dL Lipase (73-393) U/L Imaging Data Radiologist's impression: ITS Impressions Chest X-Ray 11/29/17 20:26 CONCLUSION: Cardiomegaly. Mild basilar atelectasis. Previous sternotomy. Abdomen/Pelvis CT 11/29/17 20:27 CONCLUSION: 1. No acute findings within the abdomen and pelvis. Small hiatal hernia. Atrophic right kidney. 2. Mild 3.4 cm distal abdominal aortic aneurysm. 3. Extensive stranding of fat in the lateral abdominal wall bilaterally, probably anasarca although bruising could have a similar appearance. Discharge Plan Discharge Disposition Patient Disposition: 30 Still Patient Discharge Condition Condition: Stable Discharge Details Discharge Problem: Sepsis, Cellulitis, Acute pancreatitis, Diarrhea Physicians Team ED Provider: Marla Ren Primary Care Provider: Vipul Eid Status ED Status: With Doctor
--- NOTE | 2017-11-29 20:51 | XR ---
EXAM DATE: 11/29/2017 8:43 PM EDT AGE/SEX: 82 years / Male INDICATIONS: Fever. Altered mental status. CLINICAL DATA: This is the patient's initial encounter. Patient reports that signs and symptoms have been present for 1 day and indicates a pain score of Nonresponsive. MEDICAL/SURGICAL HISTORY: . Stroke. Cardiovascular disease. Hypertension. DVT, GERD. . Cranio laura. CABG. Umbilical hernia repair. COMPARISON: [facility] [place], CHEST PA & LAT, 10/30/2017. . FINDINGS: Heart size is enlarged. Previous sternotomy. No focal consolidation or significant effusion. No pneum othorax. Mild basilar atelectasis. CONCLUSION: Cardiomegaly. Mild basilar atelectasis. Previous sternotomy. Electronically signed by: Jareth Moreno MD 11/29/2017 8:50 PM EDT
[2017-11-29 20:53] LABS: Baso # (Auto) 0.1 th/mm3 (0.0-0.2); Baso % (Auto) 0.7 % (0.0-2.0); Eos # (Auto) 0.1 th/mm3 (0.0-0.4); Eos % (Auto) 0.4 % (0.0-4.0); Hematocrit 30.6 % (39.0-51.0); Hemoglobin 9.9 gm/dL (13.0-17.0); Lymph # (Auto) 0.8 th/mm3 (1.0-4.8); Lymph % (Auto) 4.2 % (9.0-44.0); Mean Corpuscular HGB Conc 32.4 % (32.0-36.0); Mean Corpuscular Hemoglobin 32.6 pg (27.0-34.0); Mean Corpuscular Volume 100.8 fL (80.0-100.0); Mean Platelet Volume 8.3 fL (7.0-11.0); Mono # (Auto) 0.3 th/mm3 (0.0-0.9); Mono % (Auto) 1.9 % (0.0-8.0); Neut # (Auto) 16.9 th/mm3 (1.8-7.7); Neut % (Auto) 92.8 % (16.0-70.0); Platelet Count 275 th/mm3 (150-450); Red Blood Count 3.04 mil/mm3 (4.50-5.90); Red Cell Distribution Width 15.7 % (11.6-17.2); White Blood Count 18.3 th/mm3 (4.0-11.0)
[2017-11-29 21:09] LABS: Activated Partial Thrombo Time 24.9 sec (24.3-30.1); INR 1.6 Ratio; Prothrombin Time 16.2 sec (9.8-11.6)
[2017-11-29 21:10] LABS: Albumin 2.7 g/dL (3.4-5.0); Anion Gap 11 meq/L (5-15); Aspartate Aminotransferase 23 U/L (15-37); Blood Urea Nitrogen 27 mg/dL (7-18); Calcium 8.7 mg/dL (8.5-10.1); Carbon Dioxide 27.1 meq/L (21.0-32.0); Chloride 105 meq/L (98-107); Glomerular Filtration Rate 43 mL/min (>89); Glucose,Random 96 mg/dL (74-106); Lipase 646 U/L (73-393); Magnesium 1.6 mg/dL (1.5-2.5); Potassium 3.7 meq/L (3.5-5.1); Sodium 143 meq/L (136-145)
[2017-11-29 21:11] LABS: Alanine Aminotransferase 22 U/L (12-78)
[2017-11-29 21:15] LABS: Alkaline Phosphatase 88 U/L (45-117); Total Protein 7.2 g/dL (6.4-8.2)
[2017-11-29 21:20] LABS: Creatine Kinase 33 U/L (39-308)
--- NOTE | 2017-11-29 21:34 | CT ---
EXAM DATE: 11/29/2017 9:15 PM EDT AGE/SEX: 82 years / Male INDICATIONS: Abdomen pain. CLINICAL DATA: This is the patient's initial encounter. Patient reports that signs and symptoms have been present for 1 day and indicates a pain score of 6/10. MEDICAL/SURGICAL HISTORY: Cardiovascular disease. Hypertension. Deep venous thrombosis. GERD CABG. Craniotomy. Umbilical hernia repair. RADIATION DOSE: 31.30 CTDI (mGy) ; Patient body habitus COMPARISON: No prior exams available for comparison. TECHNIQUE: Multiple contiguous axial images were obtained through the abdomen. Images were obtained using multiple row detector helical technique. Using automated exposure control and adjustment of the mA and/or kV according to patient size, radiation dose was kept as low as reasonably achievable to o btain optimal diagnostic quality images. DICOM format image data is available electronically for rev iew and comparison. FINDINGS: There is minimal dependent atelectasis at the lung bases. Dense coronary calcifications. Cardiomegaly . Previous CABG. No acute findings in the liver, spleen, adrenals, kidneys or pancreas. The right kidney is atrophic. There is a small hiatal hernia. No free fluid. No bowel obstruction. No adenopathy. There is extensive stranding of fat in the left lateral abdominal wall and to a lesser extent on the right, probably anasarca. This could also represent some bruising. Previous laparotomy with surgical anthony present. No acute bony abnormality. CONCLUSION: 1. No acute findings within the abdomen and pelvis. Small hiatal hernia. Atrophic right kidney. 2. Mild 3.4 cm distal abdominal aortic aneurysm. 3. Extensive stranding of fat in the lateral abdominal wall bilaterally, probably anasarca although bruising could have a similar appearance. Electronically signed by: Jareth Moreno MD 11/29/2017 9:33 PM EDT
[2017-11-29] MEDS ORDERED: Vancomycin Inj 1 GM/200 ML PIGGYBACK IV.SIG ONE (23:32)
[2017-11-30 00:11] LABS: Bilirubin,Urine Negative (Negative); Clarity,Urine Clear (Clear); Color,Urine Yellow (Yellw/Straw); Glucose,Urine (UA) Negative (Negative); Leukocyte Esterase,Urine Trace (Negative); Mucus,Urine Few /lpf (Occasional); Nitrite,Urine Negative (Negative); Specific Gravity,Urine 1.009 (1.002-1.035); Squamous Epithelial Cell,Urine 1 /hpf (0-5)
[2017-11-30] MEDS ORDERED: Bisacodyl 10 MG Supp RECTAL PRN (00:42)
[2017-11-30] MEDS ORDERED: Acetaminophen 325 MG Tablet PO PRN (00:42)
[2017-11-30] MEDS ORDERED: Vancomycin Consult Pharmacy 1 EACH OTHER SCH (01:00)
[2017-11-30] MEDS: Sod Chloride 0.9% Inj 1,000 ML IV.CONT SCH ×2 (02:42→10:22)
[2017-11-30] MEDS: Heparin - SQ 10,000 UNITS/ML Vial SQ SCH ×3 (02:42→17:44)
[2017-11-30 08:12] LABS: Troponin I 0.87 ng/mL (0.02-0.05)
[2017-11-30] MEDS: Furosemide 40 MG Tablet PO SCH (08:57)
[2017-11-30] MEDS: Metoprolol Tartrate 100 MG Tablet PO SCH ×2 (08:57→21:47)
[2017-11-30] MEDS ORDERED: Senna/Docusate Sodium 8.6/50 MG Tablet PO SCH (09:00)
[2017-11-30] MEDS ORDERED: Vancomycin Inj 1,000 MG in Sodium Chlor 0.9% Inj 250 ML IV.SIG ONE (10:00)
--- NOTE | 2017-11-30 10:15 | P.HP ---
<Reva Mandujano W - Last Filed: 11/30/17 14:31> History of Present Illness Primary Care Physician: Vipul Eid MD Chief Complaint: Abd pain N/V/D History of Present Illness: This is an 82-year-old male with multiple medical problems including coronary artery disease, status post CABG, atrial fibrillation, CHF, chronic kidney disease stage III and chronic lower extremity edema with chronic lower extremity lymphedema. Patient recently admitted to [facility] from 10/30/17 to 11/16/17 for cellulitis bilateral lower extremities. Patient was discharged on Keflex and doxycycline. Patient completed the PO abx a few days ago then developed diffuse abd pain and nonbloody diarrhea. Patient reports decreased appetite for the past 4 days then developed diarrhea about 2-3 times a day for the past 3-4 days with associated cramping/stabbing abd pain. reports diarrhea is foul smelling and liquid/soft serve ice cream consistency. Patient also endorses chills which have been going on for approximately 2 days. Patient denies fever, shortness of breath or chest pain. Chest X-Ray 11/29/17 20:26 CONCLUSION: Cardiomegaly. Mild basilar atelectasis. Previous sternotomy. Abdomen/Pelvis CT 11/29/17 20:27 CONCLUSION: 1. No acute findings within the abdomen and pelvis. Small hiatal hernia. Atrophic right kidney. 2. Mild 3.4 cm distal abdominal aortic aneurysm. 3. Extensive stranding of fat in the lateral abdominal wall bilaterally, probably anasarca although bruising could have a similar appearance. Past Medical History 1) HTN 2) cad. 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 Patient required left craniotomy for evacuation of subdural hemorrhage performed 05/23/[address] Alex Hall. 13) cellulitis bilateral lower extremities treated in hospital from 10/30/17 to Past Surgical History 1) amputation of ischemic toes 2) umbilical hernia repair 3) left craniotomy for evacuation of subdural hemorrhage performed 05/23/[address] Alex Hall. Family History Noncontributory Social History - , lives with - Daughter lives locally - No tobacco use - No alcohol use - No illicit street drugs - Diagnosis (1) Acute pancreatitis Estimated Total Length of Stay (Days): 3 Plans for Post Hospital Care: SNF [facility] - History History Provided By: Patient - Medical History Medical History: Medical History (Last Reviewed 11/30/17 @ 08:56 by Benedicto Escalante) Atrial fibrillation (Acute) Gastric ulcer (Acute) CHF (congestive heart failure) (Acute) Hypertension (Acute) - Tobacco History Second Hand Smoke Exposure: Yes Smoking Status: Never smoker - Alcohol History How Often Do You Have a Drink Containing Alcohol: Never - Substance Use History Substance History: No History of Abuse - Travel History Recent Travel in the [place] Within the Last 8 Weeks: No Recent Travel Out of the Country Within the Last 8 Weeks: No - Immunization History Tetanus Immunization: <5 Years Hx Influenza Vaccine This Season: Yes Medications and Allergies Allergies Allergy/AdvReac Type Severity Reaction Status Date / Time azithromycin Allergy Severe UNKNOWN Verified 05/22/17 09:11 enalaprilat Allergy Severe FACIAL Verified 05/22/17 09:11 EDEMA penicillin G Allergy Severe ANAPHYLAXIS Verified 05/22/17 09:11 Home Medications Medication Instructions Recorded Confirmed Type alprazolam [Xanax] 1 mg PO BID 11/30/17 11/30/17 History atorvastatin 20 mg PO DAILY 11/30/17 11/30/17 History furosemide 40 mg PO DAILY 11/30/17 11/30/17 History losartan 50 mg PO DAILY 11/30/17 11/30/17 History metoprolol tartrate 100 mg PO BID 11/30/17 11/30/17 History pantoprazole 40 mg PO BID 11/30/17 11/30/17 History tamsulosin 0.4 mg PO DAILY 11/30/17 11/30/17 History warfarin 2.5 mg PO DAILY 11/30/17 11/30/17 History Active Medications: Active Medications Acetaminophen (Tylenol) 650 mg PO Q4H PRN PRN Reason: Temp > 100.4 Al Hydroxide/Mg Hydroxide (Milk Of Magnesia Liq) 30 ml PO Q12H PRN PRN Reason: Mild Constipation Alprazolam (Xanax) 1 mg PO BID [facility]IE Last Admin: 07/08/18 08:57 Dose: 1 mg Atorvastatin Calcium (Lipitor) 20 mg PO DAILY [facility] Last Admin: 11/30/17 08:57 Dose: 20 mg Bisacodyl (Dulcolax Supp) 10 mg RECTAL DAILY PRN PRN Reason: SEVERE CONSITIPATION Furosemide (Lasix) 40 mg PO DAILY [facility] Last Admin: 11/30/17 08:57 Dose: 40 mg Heparin Sodium (Porcine) (Heparin Inj) 5,000 units SQ Q8H [facility] Last Admin: 11/30/17 08:58 Dose: 5,000 units Sodium Chloride (Ns Inj) 1,000 mls @ 100 mls/hr IV.CONT .Q10H [facility] Last Admin: 11/30/17 02:42 Dose: 100 mls/hr Pharmacy Profile Note (Vancomycin Consult Pharmacy) 0 mls @ 0 mls/hr OTHER UNSCH [facility] Vancomycin HCl 1,000 mg/ (Sodium Chloride) 250 mls @ 250 mls/hr IV.SIG ONCE ONE Stop: 11/30/17 10:59 Lactulose (Lactulose Liq) 30 ml PO DAILY PRN PRN Reason: SEVERE CONSITIPATION Losartan Potassium (Cozaar) 50 mg PO DAILY [facility] Last Admin: 11/30/17 08:57 Dose: 50 mg Metoprolol Tartrate (Lopressor) 100 mg PO BID [facility] Last Admin: 11/30/17 08:57 Dose: 100 mg Ondansetron HCl (Zofran Inj) 4 mg IV.PUSH Q6H PRN PRN Reason: NAUSEA OR VOMITING Pantoprazole Sodium (Protonix) 40 mg PO BID [facility] Last Admin: 11/30/17 08:57 Dose: 40 mg Senna/Docusate Sodium (Yamileth-Colace) 1 tab PO BID [facility] Last Admin: 11/30/17 08:57 Dose: 1 tab Sennosides (Senokot) 17.2 mg PO Q12H PRN PRN Reason: Moderate Constipation Sodium Chloride (Ns Flush) 2 ml IV.FLUSH PRN PRN PRN Reason: FLUSH AFTER USING IV ACCESS Tamsulosin HCl (Flomax) 0.4 mg PO DAILY [facility] Last Admin: 11/30/17 08:57 Dose: 0.4 mg Warfarin Sodium (Coumadin) 2.5 mg PO DAILY [facility] Last Admin: 11/30/17 08:57 Dose: 2.5 mg Exam Vital signs: Vital Signs 11/29/17 20:03 11/30/17 01:50 11/30/17 02:36 Temperature 100.7 F H 98.2 F 98.9 F Pulse Rate 90 78 95 H Respiratory Rate 20 20 20 Blood Pressure 137/71 148/78 H 144/64 H Pulse Oximetry 99 11/30/17 04:00 11/30/17 08:00 Temperature 97.0 F L 100.2 F H Pulse Rate 88 120 H Respiratory Rate 20 18 Blood Pressure 99/49 L 147/66 H Pulse Oximetry 100 96 Intake & Output 11/29/17 11/30/17 11/30/17 18:59 06:59 18:59 Intake Total 480 / 480 Output Total 0 / 0 Balance 480 / 480 Weight 156.8 kg Intake: Oral 480 / 480 Output: Urine 0 / 0 Other: Date of Last Bowel Movement 11/29/17 Narrative: Physical Exam GENERAL: Obese 82 year old male patient fatigued but in no apparent distress. HEAD: Atraumatic. Normocephalic. No temporal or scalp tenderness. EYES: Pupils equal round and reactive. Extraocular motions intact. No scleral icterus. No injection or drainage. ENT: Nose without bleeding, purulent drainage or septal hematoma. Throat without erythema, tonsillar hypertrophy or exudate. Uvula midline. Airway patent. NECK: Trachea midline. No JVD or lymphadenopathy. Supple, nontender, no meningeal signs. CARDIOVASCULAR: Regular rate and rhythm without murmurs, gallops, or rubs. RESPIRATORY: Clear to auscultation. Breath sounds equal bilaterally. No wheezes , rales, or rhonchi. GASTROINTESTINAL: Abdomen soft, non-tender, nondistended. No hepato-splenomegaly , or palpable masses. No guarding. MUSCULOSKELETAL: 1-2+ b/l LE edema improved from 11/10 admission. generalized weakness Results - Labs CBC & Chem 7: 11/29/17 20:35 11/30/17 13:11 Labs: Laboratory Results - last 24 hr 11/29/17 11/29/17 11/29/17 20:35 20:35 20:35 WBC 18.3 H RBC 3.04 L Hgb 9.9 L Hct 30.6 L MCV 100.8 H MCH 32.6 MCHC 32.4 RDW 15.7 Plt Count 275 MPV 8.3 Neut % (Auto) 92.8 H Lymph % (Auto) 4.2 L Murray % (Auto) 1.9 Eos % (Auto) 0.4 Baso % (Auto) 0.7 Neut # (Auto) 16.9 H Lymph # (Auto) 0.8 L Murray # (Auto) 0.3 Eos # (Auto) 0.1 Baso # (Auto) 0.1 WBC Differential . Differential Comment Auto diff final PT 16.2 H INR 1.6 APTT 24.9 Sodium 143 Potassium 3.7 Chloride 105 Carbon Dioxide 27.1 Anion Gap 11 BUN 27 H Creatinine 1.83 H Estimated GFR 43 L Random Glucose 96 Lactic Acid Calcium 8.7 Magnesium 1.6 Total Bilirubin 1.8 H AST 23 ALT 22 Alkaline Phosphatase 88 Total Creatine Kinase 33 L Troponin I 0.90 H* Total Protein 7.2 Albumin 2.7 L Lipase 646 H Urine Color Urine Clarity Urine pH Ur Specific [place] Urine Protein Urine Glucose (UA) Urine Ketones Urine Occult Blood Urine Nitrate Urine Bilirubin Urine Urobilinogen Ur Leukocyte Esterase Urine RBC Urine WBC Ur Squamous Epith Cells Urine Mucus Micro UA Comment Urine Culture Comments 11/29/17 11/29/17 11/30/17 20:35 23:42 05:48 WBC RBC Hgb Hct MCV MCH MCHC RDW Plt Count MPV Neut % (Auto) Lymph % (Auto) Murray % (Auto) Eos % (Auto) Baso % (Auto) Neut # (Auto) Lymph # (Auto) Murray # (Auto) Eos # (Auto) Baso # (Auto) WBC Differential Differential Comment PT INR APTT Sodium Potassium Chloride Carbon Dioxide Anion Gap BUN Creatinine Estimated GFR Random Glucose Lactic Acid 1.5 Calcium Magnesium Total Bilirubin AST ALT Alkaline Phosphatase Total Creatine Kinase 22 L Troponin I 0.87 H* Total Protein Albumin Lipase Urine Color Yellow Urine Clarity Clear Urine pH 6.0 Ur Specific [place] 1.009 Urine Protein Negative Urine Glucose (UA) Negative Urine Ketones Negative Urine Occult Blood Negative Urine Nitrate Negative Urine Bilirubin Negative Urine Urobilinogen Less than 2 Ur Leukocyte Esterase Trace H Urine RBC 1 Urine WBC 6 H Ur Squamous Epith Cells 1 Urine Mucus Few H Micro UA Comment Culture not ind Urine Culture Comments Culture not ind - Imaging Impressions Chest X-Ray 11/29/17 20:26 CONCLUSION: Cardiomegaly. Mild basilar atelectasis. Previous sternotomy. Abdomen/Pelvis CT 11/29/17 20:27 CONCLUSION: 1. No acute findings within the abdomen and pelvis. Small hiatal hernia. Atrophic right kidney. 2. Mild 3.4 cm distal abdominal aortic aneurysm. 3. Extensive stranding of fat in the lateral abdominal wall bilaterally, probably anasarca although bruising could have a similar appearance. Caprini VTE Risk Assessment Caprini VTE Risk Assessment: Moderate/High Risk (score >= 2) Caprini Risk Assessment Model: Point Value = 1 Point Value = 2 Point Value = 3 Point Value = 5 Age 41-60 Minor surgery BMI > 25 kg/m2 Swollen legs Varicose veins or History of unexplained or recurrent spontaneous Oral contraceptives or hormone replacement Sepsis (< 1 month) Serious lung disease, including pneumonia (< 1 month) Abnormal pulmonary function Acute myocardial infarction Congestive heart failure (< 1 month) History of inflammatory bowel disease Medical patient at bed rest Age 61-74 Arthroscopic surgery Major open surgery (> 45 min) Laparoscopic surgery (> 45 min) Malignancy Confined to bed (> 72 hours) Immobilizing plaster cast Central venous access Age >= 75 History of VTE Family history of VTE Factor V Leiden Prothrombin [id number] Lupus anticoagulant Anticardiolipin antibodies Elevated serum homocysteine Heparin-induced thrombocytopenia Other congenital or acquired thrombophilia Stroke (< 1 month) Elective arthroplasty Hip, pelvis, or leg fracture Acute spinal cord injury (< 1 month) Prophylaxis Regimen: Total Risk Factor Score Risk Level Prophylaxis Regimen 0-1 Low Early ambulation 2 Moderate Order ONE of the following: *Sequential Compression Device (SCD) *Heparin 5000 units SQ BID 3-4 Higher Order ONE of the following medications: *Heparin 5000 units SQ TID *Enoxaparin/Lovenox 40 mg SQ daily (WT < 150 kg, CrCl > 30 mL/min) *Enoxaparin/Lovenox 30 mg SQ daily (WT < 150 kg, CrCl > 10-29 mL/min) *Enoxaparin/Lovenox 30 mg SQ BID (WT < 150 kg, CrCl > 30 mL/min) AND/OR *Sequential Compression Device (SCD) 5 or more Highest Order ONE of the following medications: *Heparin 5000 units SQ TID (Preferred with Epidurals) *Enoxaparin/Lovenox 40 mg SQ daily (WT < 150 kg, CrCl > 30 mL/min) *Enoxaparin/Lovenox 30 mg SQ daily (WT < 150 kg, CrCl > 10-29 mL/min) *Enoxaparin/Lovenox 30 mg SQ BID (WT < 150 kg, CrCl > 30 mL/min) AND *Sequential Compression Device (SCD) Assessment and Plan - Assessment (1) Acute pancreatitis Code(s): K85.90 - Acute pancreatitis without necrosis or infection, unspecified Status: Acute Plan: Acute pancreatitis This is an 82-year-old male with multiple medical problems including coronary artery disease, status post CABG, atrial fibrillation, CHF, chronic kidney disease stage III and chronic lower extremity edema with chronic lower extremity lymphedema. Patient recently admitted to [facility] from 10/30/17 to 11/16/17 for cellulitis bilateral lower extremities. Patient was discharged on Keflex and doxycycline. Patient reports he completed the PO abx a few days ago then developed diffuse abd pain and nonbloody diarrhea. Patient Patient also endorses cough and chills which have been going on for approximately days. Patient denies fever , shortness of breath, chest pain. - on admission Lipase 646 Chest X-Ray 11/29/17 20:26 CONCLUSION: Cardiomegaly. Mild basilar atelectasis. Previous sternotomy. Abdomen/Pelvis CT 11/29/17 20:27 CONCLUSION: 1. No acute findings within the abdomen and pelvis. Small hiatal hernia. Atrophic right kidney. 2. Mild 3.4 cm distal abdominal aortic aneurysm. 3. Extensive stranding of fat in the lateral abdominal wall bilaterally, probably anasarca although bruising could have a similar appearance. - NPO - IVF for hydration - recheck Lipase for this AM pending Diarrhea Given recent abx use concern for c Diff C Diff pending Oral vancomycin stated IVF for hydration supportive care Leukocytosis likely related to diarrhea possible C diff WBC 18.3 with Neutrophils 92.8 UA reviewed No protein, no ketones, no nitrate, trace Leukocyte esterase with squamous cells present, no culture indicated CXR reviewed and reveals: Cardiomegaly. Mild basilar atelectasis. Previous sternotomy. Elevated troponin Patient's troponin on admission 0.90 repeat 0.89 patient denies chest pain and in review if old records has chronically elevated troponin EKG shows A fib rate controlled and appears unchanged from previous EKGs Chronic acquired lymphedema continue home lasix Atrial fibrillation - INR 1.6 on admission, concern regarding patient's medication compliance at home - continue metoprolol 100mg BID - continue Coumadin - repeat INR in AM CKD (chronic kidney disease) stage 3, GFR 30-59 ml/min - renal function appears at baseline - observe - avoid nephrotoxic agents HTN (hypertension) - Chronic - continue home metoprolol, Cozaar CAD (coronary artery disease) - Chronic - continue home metoprolol, Lipitor Generalized weakness PT consulted Patient will likely require SNF at time of DC <Michael Rich - Last Filed: 12/07/17 23:10> History of Present Illness Primary Care Physician: Vipul Eid MD - Diagnosis (1) General weakness (2) Diarrhea Inpatient Certification: I certify that the inpatient services were ordered in accordance with Medicare regulations governing the order. This includes certification that hospital inpatient services are reasonable and necessary and in the case of services not specified as inpatient-only under 42 CFR 419.22(n), that they are appropriately provided as inpatient services in accordance to with the 2-midnight benchmark under 43 CFR 412.3(e) [facility] - Medical History Medical History: Medical History (Last Reviewed 11/30/17 @ 08:56 by Benedicto Escalante) Atrial fibrillation (Acute) Gastric ulcer (Acute) CHF (congestive heart failure) (Acute) Hypertension (Acute) Results - Labs CBC & Chem 7: 12/02/17 09:33 12/02/17 09:33 Caprini VTE Risk Assessment Caprini Risk Assessment Model: Point Value = 1 Point Value = 2 Point Value = 3 Point Value = 5 Age 41-60 Minor surgery BMI > 25 kg/m2 Swollen legs Varicose veins or History of unexplained or recurrent spontaneous Oral contraceptives or hormone replacement Sepsis (< 1 month) Serious lung disease, including pneumonia (< 1 month) Abnormal pulmonary function Acute myocardial infarction Congestive heart failure (< 1 month) History of inflammatory bowel disease Medical patient at bed rest Age 61-74 Arthroscopic surgery Major open surgery (> 45 min) Laparoscopic surgery (> 45 min) Malignancy Confined to bed (> 72 hours) Immobilizing plaster cast Central venous access Age >= 75 History of VTE Family history of VTE Factor V Leiden Prothrombin [id number] Lupus anticoagulant Anticardiolipin antibodies Elevated serum homocysteine Heparin-induced thrombocytopenia Other congenital or acquired thrombophilia Stroke (< 1 month) Elective arthroplasty Hip, pelvis, or leg fracture Acute spinal cord injury (< 1 month) Prophylaxis Regimen: Total Risk Factor Score Risk Level Prophylaxis Regimen 0-1 Low Early ambulation 2 Moderate Order ONE of the following: *Sequential Compression Device (SCD) *Heparin 5000 units SQ BID 3-4 Higher Order ONE of the following medications: *Heparin 5000 units SQ TID *Enoxaparin/Lovenox 40 mg SQ daily (WT < 150 kg, CrCl > 30 mL/min) *Enoxaparin/Lovenox 30 mg SQ daily (WT < 150 kg, CrCl > 10-29 mL/min) *Enoxaparin/Lovenox 30 mg SQ BID (WT < 150 kg, CrCl > 30 mL/min) AND/OR *Sequential Compression Device (SCD) 5 or more Highest Order ONE of the following medications: *Heparin 5000 units SQ TID (Preferred with Epidurals) *Enoxaparin/Lovenox 40 mg SQ daily (WT < 150 kg, CrCl > 30 mL/min) *Enoxaparin/Lovenox 30 mg SQ daily (WT < 150 kg, CrCl > 10-29 mL/min) *Enoxaparin/Lovenox 30 mg SQ BID (WT < 150 kg, CrCl > 30 mL/min) AND *Sequential Compression Device (SCD) Assessment and Plan - Assessment (1) General weakness Code(s): R53.1 - Weakness Status: Acute (2) Diarrhea Code(s): R19.7 - Diarrhea, unspecified Status: Acute - Attending Attestation Patient examined. Assessment and plan formulated with Reva Mandujano PA-C. I agree with the above. <Reva Mandujano W - Last Filed: 11/30/17 14:31> (1) Acute pancreatitis Qualifiers: Pancreatitis type: unspecified pancreatitis type Acute pancreatitis complication: unspecified Qualified Code(s): K85.90 - Acute pancreatitis without necrosis or infection, unspecified <Michael Rich - Last Filed: 12/07/17 23:10> (2) Diarrhea Qualifiers: Diarrhea type: unspecified type Qualified Code(s): R19.7 - Diarrhea, unspecified
--- NOTE | 2017-11-30 11:20 | ECG ---
Date Performed: 11/29/2017 Time Performed: 23:44:30 PTAGE: 82 years EKG: ATRIAL FIBRILLATION WITH ABERRANT CONDUCTION OR VENTRICULAR PREMATURE COMPLEXES NONSPECIFIC INTRAVENTRICULAR CONDUCTION DELAY ST/T-WAVE ABNORMALITY, CONSIDER LATERAL AND INFERIOR ISCHEMIA BASE LINE ARTEFACT ABNORMAL ECG PREVIOUS TRACING : 11/13/2017 10.44 Compared to previous tracing, inferior and lateral ST/T marisa nges possibly more pronounced. DOCTOR: Parveen Rodriguez Interpretating Date/Time 11/30/2017 11:19:20
[2017-11-30] MEDS ORDERED: Vancomycin Inj 1 GM/200 ML PIGGYBACK IV.SIG SCH (11:30)
[2017-11-30 13:50] LABS: Alanine Aminotransferase 17 U/L (12-78); Albumin 2.4 g/dL (3.4-5.0); Anion Gap 9 meq/L (5-15); Aspartate Aminotransferase 18 U/L (15-37); Blood Urea Nitrogen 28 mg/dL (7-18); Calcium 8.2 mg/dL (8.5-10.1); Chloride 105 meq/L (98-107); Glomerular Filtration Rate 40 mL/min (>89); Glucose,Random 104 mg/dL (74-106); Lipase 369 U/L (73-393); Potassium 3.7 meq/L (3.5-5.1); Sodium 142 meq/L (136-145)
[2017-11-30 13:54] LABS: Alkaline Phosphatase 77 U/L (45-117); Total Protein 6.5 g/dL (6.4-8.2)
[2017-11-30 14:03] LABS: Creatine Kinase 23 U/L (39-308)
[2017-11-30 14:12] LABS: Troponin I 0.88 ng/mL (0.02-0.05)
[2017-11-30 22:35] LABS: Bacteria,Urine Occasional /hpf; Bilirubin,Urine Negative (Negative); Clarity,Urine Hazy (Clear); Color,Urine Yellow (Yellw/Straw); Glucose,Urine (UA) Negative (Negative); Leukocyte Esterase,Urine Moderate (Negative); Mucus,Urine Few /lpf (Occasional); Nitrite,Urine Negative (Negative); Specific Gravity,Urine 1.013 (1.002-1.035); Squamous Epithelial Cell,Urine <1 /hpf (0-5)
[2017-12-01] MEDS: Sod Chloride 0.9% Inj 1,000 ML IV.CONT SCH ×3 (02:44→17:11)
[2017-12-01] MEDS: Heparin - SQ 10,000 UNITS/ML Vial SQ SCH ×3 (02:49→17:10)
[2017-12-01 08:58] LABS: Baso # (Auto) 0.1 th/mm3 (0.0-0.2); Baso % (Auto) 0.6 % (0.0-2.0); Eos # (Auto) 0.1 th/mm3 (0.0-0.4); Eos % (Auto) 0.7 % (0.0-4.0); Hematocrit 26.7 % (39.0-51.0); Hemoglobin 8.7 gm/dL (13.0-17.0); Lymph # (Auto) 0.7 th/mm3 (1.0-4.8); Lymph % (Auto) 4.4 % (9.0-44.0); Mean Corpuscular HGB Conc 32.5 % (32.0-36.0); Mean Corpuscular Hemoglobin 33.3 pg (27.0-34.0); Mean Corpuscular Volume 102.5 fL (80.0-100.0); Mean Platelet Volume 7.9 fL (7.0-11.0); Mono # (Auto) 0.5 th/mm3 (0.0-0.9); Mono % (Auto) 3.1 % (0.0-8.0); Neut # (Auto) 15.4 th/mm3 (1.8-7.7); Neut % (Auto) 91.2 % (16.0-70.0); Platelet Count 205 th/mm3 (150-450); Red Blood Count 2.61 mil/mm3 (4.50-5.90); Red Cell Distribution Width 15.5 % (11.6-17.2); White Blood Count 16.8 th/mm3 (4.0-11.0)
[2017-12-01 09:18] LABS: Carbon Dioxide 24.8 meq/L (21.0-32.0); Potassium 3.9 meq/L (3.5-5.1)
[2017-12-01] MEDS: Furosemide 40 MG Tablet PO SCH (09:32)
[2017-12-01] MEDS: Metoprolol Tartrate 100 MG Tablet PO SCH ×2 (09:32→20:58)
--- NOTE | 2017-12-01 09:40 | P.PNIM ---
Subjective Interval history: less nausea. will try some po today despite a cdiff result in [employer]..pt/ are convinced no actual sample was taken yesterday. Physical Exam Vital signs: Vital Signs 11/30/17 12:00 11/30/17 20:00 12/01/17 00:00 Temperature 98.1 F 98.6 F 98.4 F Pulse Rate 69 82 80 Respiratory Rate 20 18 18 Blood Pressure 123/56 L 124/59 L 130/60 Pulse Oximetry 97 95 99 12/01/17 04:00 Temperature 98.0 F Pulse Rate 79 Respiratory Rate 18 Blood Pressure 144/71 H Pulse Oximetry 96 Intake & Output 11/30/17 12/01/17 12/01/17 18:59 06:59 18:59 Intake Total 1000 / 1000 1000 / 1000 1000 / 1000 Output Total 200 / 200 Balance 1000 / 1000 800 / 800 1000 / 1000 Intake: IV 1000 / 1000 1000 / 1000 1000 / 1000 NS Inj 1,000 ML @ 100 mls/hr IV 1000 / 1000 1000 / 1000 1000 / 1000 .CONT .Q10H LANIE Rx#:[id number] Output: Urine 200 / 200 Other: # Voids 3 nad heart reg lung cta abd s/nt ext chronic le edema maribel Results - Labs CBC & Chem 7: 12/01/17 08:35 12/01/17 08:35 Laboratory Results - last 24 hr 11/30/17 11/30/17 11/30/17 13:11 16:11 16:11 WBC RBC Hgb Hct MCV MCH MCHC RDW Plt Count MPV Neut % (Auto) Lymph % (Auto) Stanton % (Auto) Eos % (Auto) Baso % (Auto) Neut # (Auto) Lymph # (Auto) Stanton # (Auto) Eos # (Auto) Baso # (Auto) WBC Differential Differential Comment Sodium 142 Potassium 3.7 Chloride 105 Carbon Dioxide 28.0 Anion Gap 9 BUN 28 H Creatinine 1.95 H Estimated GFR 40 L Random Glucose 104 Calcium 8.2 L Total Bilirubin 2.1 H AST 18 ALT 17 Alkaline Phosphatase 77 Total Creatine Kinase 23 L Troponin I 0.88 H* Total Protein 6.5 D Albumin 2.4 L Lipase 369 Urine Color Yellow Urine Clarity Hazy H Urine pH 5.0 Ur Specific Rea 1.013 Urine Protein Negative Urine Glucose (UA) Negative Urine Ketones Negative Urine Occult Blood Small H Urine Nitrate Negative Urine Bilirubin Negative Urine Urobilinogen Less than 2 Ur Leukocyte Esterase Moderate H Urine RBC 5 H Urine WBC 93 H Ur Squamous Epith Cells <1 Urine Bacteria Occasional H Urine Mucus Few H Micro UA Comment Culture indicated Urine Culture Comments Culture indicated Stl C.difficile Tox PCR Negative St C. diff Tox Epid 027 Negative 12/01/17 12/01/17 08:35 08:35 WBC 16.8 H RBC 2.61 L Hgb 8.7 L Hct 26.7 L MCV 102.5 H MCH 33.3 MCHC 32.5 RDW 15.5 Plt Count 205 MPV 7.9 Neut % (Auto) 91.2 H Lymph % (Auto) 4.4 L Stanton % (Auto) 3.1 Eos % (Auto) 0.7 Baso % (Auto) 0.6 Neut # (Auto) 15.4 H Lymph # (Auto) 0.7 L Stanton # (Auto) 0.5 Eos # (Auto) 0.1 Baso # (Auto) 0.1 WBC Differential . Differential Comment Auto diff final Sodium 141 Potassium 3.9 Chloride 105 Carbon Dioxide 24.8 Anion Gap 11 BUN 30 H Creatinine 1.99 H Estimated GFR 39 L Random Glucose 92 Calcium 9.0 D Total Bilirubin AST ALT Alkaline Phosphatase Total Creatine Kinase Troponin I Total Protein Albumin Lipase Urine Color Urine Clarity Urine pH Ur Specific Rea Urine Protein Urine Glucose (UA) Urine Ketones Urine Occult Blood Urine Nitrate Urine Bilirubin Urine Urobilinogen Ur Leukocyte Esterase Urine RBC Urine WBC Ur Squamous Epith Cells Urine Bacteria Urine Mucus Micro UA Comment Urine Culture Comments Stl C.difficile Tox PCR St C. diff Tox Epid 027 Microbiology 11/29/17 20:35 Blood - Peripheral Aerobic Blood Culture - Preliminary No growth in 1 day 11/29/17 20:35 Blood - Peripheral Anaerobic Blood Culture - Preliminary No growth in 1 day 11/29/17 20:40 Blood - Peripheral Aerobic Blood Culture - Preliminary No growth in 1 day 11/29/17 20:40 Blood - Peripheral Anaerobic Blood Culture - Preliminary No growth in 1 day Assessment and Plan - Assessment (1) Acute pancreatitis Code(s): K85.90 - Acute pancreatitis without necrosis or infection, unspecified Status: Acute Plan: Acute pancreatitis This is an 82-year-old male with multiple medical problems including coronary artery disease, status post CABG, atrial fibrillation, CHF, chronic kidney disease stage III and chronic lower extremity edema with chronic lower extremity lymphedema. Patient recently admitted to [facility] from 10/30/17 to 11/16/17 for cellulitis bilateral lower extremities. Patient was discharged on Keflex and doxycycline. Patient reports he completed the PO abx a few days ago then developed diffuse abd pain and nonbloody diarrhea. Patient Patient also endorses cough and chills which have been going on for approximately days. Patient denies fever , shortness of breath, chest pain. - on admission Lipase 646 Chest X-Ray 11/29/17 20:26 CONCLUSION: Cardiomegaly. Mild basilar atelectasis. Previous sternotomy. Abdomen/Pelvis CT 11/29/17 20:27 CONCLUSION: 1. No acute findings within the abdomen and pelvis. Small hiatal hernia. Atrophic right kidney. 2. Mild 3.4 cm distal abdominal aortic aneurysm. 3. Extensive stranding of fat in the lateral abdominal wall bilaterally, probably anasarca although bruising could have a similar appearance. lipase nml. no abdomen pain. diarrhea seems better advance diet. Diarrhea Given recent abx use concern for c Diff C Diff reported as negative..but pt/ dispute that an actual sample was collected and sent yesterday we notified the lab and they will accept another sample if given Oral vancomycin IVF for hydration advance diet supportive care Leukocytosis likely related to diarrhea possible C diff WBC 18.3 with Neutrophils 92.8 UA reviewed No protein, no ketones, no nitrate, trace Leukocyte esterase with squamous cells present, no culture indicated CXR reviewed and reveals: Cardiomegaly. Mild basilar atelectasis. Previous sternotomy. Elevated troponin Patient's troponin on admission 0.90 repeat 0.89 patient denies chest pain and in review if old records has chronically elevated troponin EKG shows A fib rate controlled and appears unchanged from previous EKGs Chronic acquired lymphedema continue home lasix Atrial fibrillation - INR 1.6 on admission, concern regarding patient's medication compliance at home - continue metoprolol 100mg BID - continue Coumadin - repeat INR in AM CKD (chronic kidney disease) stage 3, GFR 30-59 ml/min - renal function appears at baseline - observe - avoid nephrotoxic agents HTN (hypertension) - Chronic - continue home metoprolol, Cozaar CAD (coronary artery disease) - Chronic - continue home metoprolol, Lipitor Generalized weakness PT consulted Pt will refuse snf and will go home with [facility] on dc (1) Acute pancreatitis Qualifiers: Pancreatitis type: unspecified pancreatitis type Acute pancreatitis complication: unspecified Qualified Code(s): K85.90 - Acute pancreatitis without necrosis or infection, unspecified
--- NOTE | 2017-12-01 09:56 | ECG ---
Date Performed: 11/30/2017 Time Performed: 13:40:17 PTAGE: 82 years EKG: ATRIAL FIBRILLATION WITH ABERRANT CONDUCTION OR VENTRICULAR PREMATURE COMPLEXES NONSPECIFIC T-WAVE ABNORMALITY ABNORMAL ECG Since the PREVIOUS TRACING , no significant change noted PREVIOUS TRACIN11/29/2017 23.44 DOCTOR: Connor Wang Interpretating Date/Time 12/01/2017 09:53:48
--- NOTE | 2017-12-01 18:08 | P.PNWCN ---
Wound Care Nurse Consult Description: Received pressure ulcer consult for sacrum from Doctor Rich for a special bed Communicated with: Brenda meza and Doctor Rich Recommendation: 1.Please continue to Cleanse buttock area with remedy barrier cloths and apply Calazime skin protectant paste BID and PRN to moisture related skin breakdown. 2. Turn and reposition patient every 2 hours and prn for comfort and offloading of pressure from kalpana prominences. 3. Place patient on bariatric foam mattress Additional information: Patient seen on 5 rock for evaluation of pressure ulcer to sacrum for special bed. Patient was turned to the R side for assessment of sacrum with the assistance of RN Brenda meza and parts data writer to reveal denuded peeling skin to bilateral posterior upper thighs and bilateral inner buttocks. No open areas or pressure injuries are seen at this time. Patient is need of a bariatric foam mattress given his body habitus.
[2017-12-02] MEDS: Heparin - SQ 10,000 UNITS/ML Vial SQ SCH ×3 (00:20→17:58)
[2017-12-02] MEDS: Sod Chloride 0.9% Inj 1,000 ML IV.CONT SCH (07:05)
[2017-12-02] MEDS: Furosemide 40 MG Tablet PO SCH (09:17)
[2017-12-02] MEDS: Metoprolol Tartrate 100 MG Tablet PO SCH ×2 (09:18→21:20)
--- NOTE | 2017-12-02 09:57 | P.PNIM ---
Subjective Interval history: denies any urinary frequency. denies foul urine odor. denies dysuria Physical Exam Vital signs: Vital Signs 12/01/17 16:00 12/01/17 20:00 12/01/17 21:01 Temperature 98.7 F 98.3 F Pulse Rate 88 120 H 91 H Respiratory Rate 22 20 Blood Pressure 136/63 140/72 Pulse Oximetry 96 97 12/02/17 00:00 12/02/17 04:00 12/02/17 08:00 Temperature 97.6 F 98.6 F Pulse Rate 82 81 80 Respiratory Rate 18 16 Blood Pressure 124/58 L 135/63 Pulse Oximetry 96 95 Intake & Output 12/01/17 12/02/17 12/02/17 18:59 06:59 18:59 Intake Total 1999 120 / 120 Balance 1999 120 / 120 Weight 160.8 kg Intake: IV 1999 NS Inj 1,000 ML @ 100 mls/hr IV 1999 .CONT .Q10H LANIE Rx#:[id number] Oral 120 / 120 Other: # Voids 1 Date of Last Bowel Movement 12/01/17 12/02/17 # Incontinent Bowel Movements 1 heart reg lung cta abd s/nt ext chronic lower ext edema Results - Labs CBC & Chem 7: 12/01/17 08:35 12/01/17 08:35 Laboratory Results - last 24 hr 11/30/17 12/01/17 16:11 14:15 Urine Color Yellow Urine Clarity Hazy H Urine pH 5.0 Ur Specific [place] 1.013 Urine Protein Negative Urine Glucose (UA) Negative Urine Ketones Negative Urine Occult Blood Small H Urine Nitrate Negative Urine Bilirubin Negative Urine Urobilinogen Less than 2 Ur Leukocyte Esterase Moderate H Urine RBC 5 H Urine WBC 93 H Ur Squamous Epith Cells <1 Urine Bacteria Occasional H Urine Mucus Few H Micro UA Comment Culture indicated Urine Culture Comments Culture indicated Stl C.difficile Tox PCR Negative St C. diff Tox Epid 027 Negative Microbiology 11/30/17 16:11 Clean Catch Urine Urine Culture - Preliminary Escherichia coli 11/29/17 20:35 Blood - Peripheral Aerobic Blood Culture - Preliminary No growth in 2 days 11/29/17 20:35 Blood - Peripheral Anaerobic Blood Culture - Preliminary No growth in 2 days 11/29/17 20:40 Blood - Peripheral Aerobic Blood Culture - Preliminary No growth in 2 days 11/29/17 20:40 Blood - Peripheral Anaerobic Blood Culture - Preliminary No growth in 2 days Assessment and Plan - Assessment (1) Acute pancreatitis Code(s): K85.90 - Acute pancreatitis without necrosis or infection, unspecified Status: Acute Plan: Acute pancreatitis This is an 82-year-old male with multiple medical problems including coronary artery disease, status post CABG, atrial fibrillation, CHF, chronic kidney disease stage III and chronic lower extremity edema with chronic lower extremity lymphedema. Patient recently admitted to [facility] [place] from 10/30/17 to 11/16/17 for cellulitis bilateral lower extremities. Patient was discharged on Keflex and doxycycline. Patient reports he completed the PO abx a few days ago then developed diffuse abd pain and nonbloody diarrhea. Patient Patient also endorses cough and chills which have been going on for approximately days. Patient denies fever , shortness of breath, chest pain. - on admission Lipase 646 Chest X-Ray 11/29/17 20:26 CONCLUSION: Cardiomegaly. Mild basilar atelectasis. Previous sternotomy. Abdomen/Pelvis CT 11/29/17 20:27 CONCLUSION: 1. No acute findings within the abdomen and pelvis. Small hiatal hernia. Atrophic right kidney. 2. Mild 3.4 cm distal abdominal aortic aneurysm. 3. Extensive stranding of fat in the lateral abdominal wall bilaterally, probably anasarca although bruising could have a similar appearance. lipase nml. no abdomen pain. diarrhea seems better. cdiff negative but strong suspicion. ?uti. possible sxs prior to admission but now w/out uti sx's and conflicting u/ a results if wbc still elevated will consider i/o cath specimen advance diet. stop ivf. if tolerating then plan home tomorrow. pt refusing snf. [facility] Diarrhea Given recent abx use concern for c Diff see above Leukocytosis ?cdiff. pcr neg. ?uti.see above WBC 18.3 with Neutrophils 92.8 UA reviewed No protein, no ketones, no nitrate, trace Leukocyte esterase with squamous cells present, no culture indicated CXR reviewed and reveals: Cardiomegaly. Mild basilar atelectasis. Previous sternotomy. Elevated troponin Patient's troponin on admission 0.90 repeat 0.89 patient denies chest pain and in review if old records has chronically elevated troponin EKG shows A fib rate controlled and appears unchanged from previous EKGs Chronic acquired lymphedema continue home lasix Atrial fibrillation - INR 1.6 on admission, concern regarding patient's medication compliance at home - continue metoprolol 100mg BID - continue Coumadin - repeat INR in AM CKD (chronic kidney disease) stage 3, GFR 30-59 ml/min - renal function appears at baseline - observe - avoid nephrotoxic agents HTN (hypertension) - Chronic - continue home metoprolol, Cozaar CAD (coronary artery disease) - Chronic - continue home metoprolol, Lipitor Generalized weakness PT consulted Pt will refuse snf and will go home with [facility] on dc (1) Acute pancreatitis Qualifiers: Pancreatitis type: unspecified pancreatitis type Acute pancreatitis complication: unspecified Qualified Code(s): K85.90 - Acute pancreatitis without necrosis or infection, unspecified
[2017-12-02 11:01] LABS: Baso % (Auto) 0.4 % (0.0-2.0); Eos # (Auto) 0.1 th/mm3 (0.0-0.4); Eos % (Auto) 0.9 % (0.0-4.0); Hematocrit 28.7 % (39.0-51.0); Hemoglobin 9.4 gm/dL (13.0-17.0); Lymph # (Auto) 0.9 th/mm3 (1.0-4.8); Lymph % (Auto) 9.4 % (9.0-44.0); Mean Corpuscular HGB Conc 32.7 % (32.0-36.0); Mean Corpuscular Hemoglobin 33.7 pg (27.0-34.0); Mean Corpuscular Volume 102.8 fL (80.0-100.0); Mean Platelet Volume 8.5 fL (7.0-11.0); Mono # (Auto) 0.3 th/mm3 (0.0-0.9); Mono % (Auto) 3.7 % (0.0-8.0); Neut % (Auto) 85.6 % (16.0-70.0); Platelet Count 227 th/mm3 (150-450); Red Blood Count 2.79 mil/mm3 (4.50-5.90); Red Cell Distribution Width 15.9 % (11.6-17.2); White Blood Count 9.3 th/mm3 (4.0-11.0)
[2017-12-02 11:11] LABS: INR 1.9 Ratio
[2017-12-02 11:24] LABS: Calcium 8.5 mg/dL (8.5-10.1); Carbon Dioxide 27.5 meq/L (21.0-32.0); Potassium 3.6 meq/L (3.5-5.1)
[2017-12-03] MEDS: Heparin - SQ 10,000 UNITS/ML Vial SQ SCH ×2 (00:26→08:54)
[2017-12-03] MEDS: Furosemide 40 MG Tablet PO SCH (08:55)
[2017-12-03] MEDS: Metoprolol Tartrate 100 MG Tablet PO SCH (08:55)
--- NOTE | 2017-12-03 10:45 | P.PNIM ---
Subjective Interval history: pt very sleepy and a little lethargic this AM daughter present Physical Exam Vital signs: Vital Signs 12/02/17 12:00 12/02/17 16:00 12/02/17 20:00 Temperature 97.6 F 97.7 F 98.5 F Pulse Rate 88 85 101 H Respiratory Rate 16 18 18 Blood Pressure 133/58 L 145/67 H 116/57 L Pulse Oximetry 97 95 96 12/03/17 00:00 12/03/17 00:05 12/03/17 00:22 Temperature 97.9 F Pulse Rate 81 109 H Respiratory Rate 18 18 Blood Pressure 112/54 L Pulse Oximetry 96 12/03/17 03:58 12/03/17 04:00 12/03/17 06:32 Temperature 97.8 F Pulse Rate 67 Respiratory Rate 18 18 18 Blood Pressure 141/65 H Pulse Oximetry 98 12/03/17 08:00 Temperature 98.4 F Pulse Rate 92 H Respiratory Rate 18 Blood Pressure 131/77 Pulse Oximetry 96 Intake & Output 12/02/17 12/03/17 12/03/17 18:59 06:59 18:59 Weight 161.2 kg Other: # Voids 2 Date of Last Bowel Movement 12/02/17 12/02/17 heent neg heart reg lung cta abd s/nt ext chronic anasarca changes. Results - Labs CBC & Chem 7: 12/02/17 09:33 12/02/17 09:33 Laboratory Results - last 24 hr 12/02/17 12/02/17 12/02/17 09:33 09:33 09:33 WBC 9.3 RBC 2.79 L Hgb 9.4 L Hct 28.7 L MCV 102.8 H MCH 33.7 MCHC 32.7 RDW 15.9 Plt Count 227 MPV 8.5 Neut % (Auto) 85.6 H Lymph % (Auto) 9.4 [place] % (Auto) 3.7 Eos % (Auto) 0.9 Baso % (Auto) 0.4 Neut # (Auto) 8.0 H Lymph # (Auto) 0.9 L [place] # (Auto) 0.3 Eos # (Auto) 0.1 Baso # (Auto) 0.0 WBC Differential . Differential Comment Auto diff final PT 19.0 H INR 1.9 Sodium 143 Potassium 3.6 Chloride 106 Carbon Dioxide 27.5 Anion Gap 10 BUN 27 H Creatinine 1.96 H Estimated GFR 40 L Random Glucose 100 Calcium 8.5 Microbiology 11/30/17 16:11 Clean Catch Urine Urine Culture - Final Escherichia coli 11/29/17 20:35 Blood - Peripheral Aerobic Blood Culture - Preliminary No growth in 3 days 11/29/17 20:35 Blood - Peripheral Anaerobic Blood Culture - Preliminary No growth in 3 days 11/29/17 20:40 Blood - Peripheral Aerobic Blood Culture - Preliminary No growth in 3 days 11/29/17 20:40 Blood - Peripheral Anaerobic Blood Culture - Preliminary No growth in 3 days Assessment and Plan - Assessment (1) Acute pancreatitis Code(s): K85.90 - Acute pancreatitis without necrosis or infection, unspecified Status: Acute Plan: Acute pancreatitis This is an 82-year-old male with multiple medical problems including coronary artery disease, status post CABG, atrial fibrillation, CHF, chronic kidney disease stage III and chronic lower extremity edema with chronic lower extremity lymphedema. Patient recently admitted to [place] from 10/30/17 to 11/16/17 for cellulitis bilateral lower extremities. Patient was discharged on Keflex and doxycycline. Patient reports he completed the PO abx a few days ago then developed diffuse abd pain and nonbloody diarrhea. Patient Patient also endorses cough and chills . Patient denies fever, shortness of breath, chest pain. - on admission Lipase 646 Chest X-Ray 11/29/17 20:26 CONCLUSION: Cardiomegaly. Mild basilar atelectasis. Previous sternotomy. Abdomen/Pelvis CT 11/29/17 20:27 CONCLUSION: 1. No acute findings within the abdomen and pelvis. Small hiatal hernia. Atrophic right kidney. 2. Mild 3.4 cm distal abdominal aortic aneurysm. 3. Extensive stranding of fat in the lateral abdominal wall bilaterally, probably anasarca although bruising could have a similar appearance. lipase nml. no abdomen pain. diarrhea seems better. cdiff negative but strong suspicion and improved wbc and sx's on vanco. ?uti. possible sxs prior to admission but now w/out uti sx's and conflicting u/ a results wbc normalized. now infection control calling due to esbl in this specimen...will recheck and clarify. advance diet and tolerating pt refusing snf[facility] again offered and recommended snf but pt refusing and family aware. He will most likely fail at home requiring readmission. Diarrhea resolved Given recent abx use concern for c Diff see above Leukocytosis ?cdiff. pcr neg. ?uti.see above WBC 18.3 with Neutrophils 92.8 UA reviewed No protein, no ketones, no nitrate, trace Leukocyte esterase with squamous cells present, no culture indicated CXR reviewed and reveals: Cardiomegaly. Mild basilar atelectasis. Previous sternotomy. Elevated troponin Patient's troponin on admission 0.90 repeat 0.89 patient denies chest pain and in review if old records has chronically elevated troponin EKG shows A fib rate controlled and appears unchanged from previous EKGs Chronic acquired lymphedema continue home lasix Atrial fibrillation - INR 1.6 on admission, concern regarding patient's medication compliance at home - continue metoprolol 100mg BID - continue Coumadin CKD (chronic kidney disease) stage 3, GFR 30-59 ml/min - renal function appears at baseline - observe - avoid nephrotoxic agents HTN (hypertension) - Chronic - continue home metoprolol, Cozaar CAD (coronary artery disease) - Chronic - continue home metoprolol, Lipitor Generalized weakness PT consulted Pt will refuse snf and will go home with [facility] on dc (1) Acute pancreatitis Qualifiers: Pancreatitis type: unspecified pancreatitis type Acute pancreatitis complication: unspecified Qualified Code(s): K85.90 - Acute pancreatitis without necrosis or infection, unspecified
--- NOTE | 2017-12-03 10:49 | P.DCO ---
- Physical Therapy Order: Evaluate and treat, Improve ambulation - Occupational Therapy Order: Evaluate and treat, Improve ADL - Home Health Nursing Order: Medical education, Signs/symptoms of disease process, Medication education-adverse effect, Wound care and dressing changes, Nursing assessment with vital signs Instructions: Please consult [facility] for lymphedema evaluation and lower extremity wrapping - Director Of Coding Order: To provide: Long range planning - Certification I have seen patient Ced Moody on 12/03/17. My clinical findings support the need for the requested home health care services because: Limited mobility due to disease progression I certify that my clinical findings support that this patient is homebound because: Unsteady gait/balance, Need for psychosocial assistance
[2017-12-03 13:21] LABS: Bacteria,Urine Rare /hpf; Bilirubin,Urine Negative (Negative); Clarity,Urine Clear (Clear); Color,Urine Straw (Yellw/Straw); Glucose,Urine (UA) Negative (Negative); Hyaline Casts,Urine 1 /lpf (0-3); Leukocyte Esterase,Urine Small (Negative); Nitrite,Urine Negative (Negative); Specific Gravity,Urine 1.004 (1.002-1.035); Squamous Epithelial Cell,Urine 2 /hpf (0-5)
--- NOTE | 2017-12-03 14:38 | P.DS ---
Date of admission: 11/29/17 23:57 Primary care physician: Viupl Eid MD Anticipated date of discharge: 12/03/17 Brief History from admission: This is an 82-year-old male with multiple medical problems including coronary artery disease, status post CABG, atrial fibrillation, CHF, chronic kidney disease stage III and chronic lower extremity edema with chronic lower extremity lymphedema. Patient recently admitted to [facility] from 10/30/17 to 11/16/17 for cellulitis bilateral lower extremities. Patient was discharged on Keflex and doxycycline. Patient completed the PO abx a few days ago then developed diffuse abd pain and nonbloody diarrhea. Patient reports decreased appetite for the past 4 days then developed diarrhea about 2-3 times a day for the past 3-4 days with associated cramping/stabbing abd pain. reports diarrhea is foul smelling and liquid/soft serve ice cream consistency. Patient also endorses chills which have been going on for approximately 2 days. Patient denies fever, shortness of breath or chest pain. Chest X-Ray 11/29/17 20:26 CONCLUSION: Cardiomegaly. Mild basilar atelectasis. Previous sternotomy. Abdomen/Pelvis CT 11/29/17 20:27 CONCLUSION: 1. No acute findings within the abdomen and pelvis. Small hiatal hernia. Atrophic right kidney. 2. Mild 3.4 cm distal abdominal aortic aneurysm. 3. Extensive stranding of fat in the lateral abdominal wall bilaterally, probably anasarca although bruising could have a similar appearance. Past Medical History 1) HTN 2) cad. 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 Patient required left craniotomy for evacuation of subdural hemorrhage performed 05/23/[address] Alex Hall. 13) cellulitis bilateral lower extremities treated in hospital from 10/30/17 to Past Surgical History 1) amputation of ischemic toes 2) umbilical hernia repair 3) left craniotomy for evacuation of subdural hemorrhage performed 05/23/[address] Alex Hall. Family History Noncontributory Social History - , lives with - Daughter lives locally - No tobacco use - No alcohol use - No illicit street drugs DS: Diagnosis - Discharge Diagnosis (1) General weakness Status: Acute (2) Diarrhea Status: Acute DS: Medications - Discharge Medications Prescriptions: hydrocodone-acetaminophen 1 tab PO Q6H PRN #15 tab PRN Reason: pain 3-10 temazepam [Restoril] 15 cap PO HS PRN #10 cap PRN Reason: insomnia DS: Summary Hospital Course: - Assessment N/v/diarrhea This is an 82-year-old male with multiple medical problems including coronary artery disease, status post CABG, atrial fibrillation, CHF, chronic kidney disease stage III and chronic lower extremity edema with chronic lower extremity lymphedema. Patient recently admitted to [facility] from 10/30/17 to 11/16/17 for cellulitis bilateral lower extremities. Patient was discharged on Keflex and doxycycline. Patient reports he completed the PO abx a few days ago then developed diffuse abd pain and nonbloody diarrhea. Patient Patient also endorses cough and chills . Patient denies fever, shortness of breath, chest pain. - on admission Lipase 646 Chest X-Ray 11/29/17 20:26 CONCLUSION: Cardiomegaly. Mild basilar atelectasis. Previous sternotomy. Abdomen/Pelvis CT 11/29/17 20:27 CONCLUSION: 1. No acute findings within the abdomen and pelvis. Small hiatal hernia. Atrophic right kidney. 2. Mild 3.4 cm distal abdominal aortic aneurysm. 3. Extensive stranding of fat in the lateral abdominal wall bilaterally, probably anasarca although bruising could have a similar appearance. lipase nml. no abdomen pain. diarrhea seems better. cdiff negative but strong suspicion and improved wbc and sx's on vanco. ?uti. possible sxs prior to admission but now w/out uti sx's and conflicting u/ a results wbc normalized. now infection control calling due to esbl in this specimen...rechecked u/a again and not infectious appearing. It would seem the second abnormal u/a with esbl ecoli is error or contaminant. advance diet and tolerating pt refusing snf. going home with [facility] I again offered and recommended snf but pt refusing and family aware. He will most likely fail at home requiring readmission. WBC 18.3 with Neutrophils 92.8 UA reviewed No protein, no ketones, no nitrate, trace Leukocyte esterase with squamous cells present, no culture indicated CXR reviewed and reveals: Cardiomegaly. Mild basilar atelectasis. Previous sternotomy. Elevated troponin Patient's troponin on admission 0.90 repeat 0.89 patient denies chest pain and in review if old records has chronically elevated troponin EKG shows A fib rate controlled and appears unchanged from previous EKGs Chronic acquired lymphedema continue home lasix Atrial fibrillation - INR 1.6 on admission, concern regarding patient's medication compliance at home - continue metoprolol 100mg BID - continue Coumadin CKD (chronic kidney disease) stage 3, GFR 30-59 ml/min - renal function appears at baseline - observe - avoid nephrotoxic agents HTN (hypertension) - Chronic - continue home metoprolol, Cozaar CAD (coronary artery disease) - Chronic - continue home metoprolol, Lipitor Generalized weakness PT consulted Pt will refuse snf and will go home with [facility] on dc (1) Acute pancreatitis Qualifiers: Pancreatitis type: unspecified pancreatitis type Acute pancreatitis complication: unspecified Qualified Code(s): K85.90 - Acute pancreatitis without necrosis or infection, unspecified Documented By: Alfonso Asif MD 12/03/17 1042 Signed By: - Time Spent with Patient Total time spent providing and/or coordinating discharge services: Greater than 30 minutes - Quality: VTE Deep Vein Thrombosis/Pulmonary Embolism Present on Admission: Yes Exam Vital signs: Vital Signs 12/02/17 16:00 12/02/17 20:00 12/03/17 00:00 Temperature 97.7 F 98.5 F 97.9 F Pulse Rate 85 101 H 81 Respiratory Rate 18 18 18 Blood Pressure 145/67 H 116/57 L 112/54 L Pulse Oximetry 95 96 96 12/03/17 00:05 12/03/17 00:22 12/03/17 03:58 Temperature Pulse Rate 109 H Respiratory Rate 18 18 Blood Pressure Pulse Oximetry 12/03/17 04:00 12/03/17 06:32 12/03/17 08:00 Temperature 97.8 F 98.4 F Pulse Rate 67 92 H Respiratory Rate 18 18 18 Blood Pressure 141/65 H 131/77 Pulse Oximetry 98 96 12/03/17 12:00 Temperature 98.8 F Pulse Rate 81 Respiratory Rate 18 Blood Pressure 133/74 Pulse Oximetry 99 Intake & Output 12/02/17 12/03/17 12/03/17 18:59 06:59 18:59 Weight 161.2 kg Other: # Voids 2 Date of Last Bowel Movement 12/02/17 12/02/17 heart reg lung cta abd s/nt ext chronic LE edema generally weak/frail appearing Results Procedures completed during hospitalization: none Labs on day of discharge: Labs from last 24 hours 12/03/17 11:59 Urine Color Straw Urine Clarity Clear Urine pH 6.0 Ur Specific [place] 1.004 Urine Protein Negative Urine Glucose (UA) Negative Urine Ketones Negative Urine Occult Blood Negative Urine Nitrate Negative Urine Bilirubin Negative Urine Urobilinogen Less than 2 Ur Leukocyte Esterase Small H Urine RBC 1 Urine WBC 8 H Ur Squamous Epith Cells 2 Urine Bacteria Rare H Hyaline Casts 1 Micro UA Comment Culture not ind Urine Culture Comments Culture not ind Preliminary micro results at discharge 11/29/17 20:35 Aerobic Blood Culture - Preliminary Blood - Peripheral No growth in 4 days Anaerobic Blood Culture - Preliminary No growth in 4 days 11/29/17 20:40 Aerobic Blood Culture - Preliminary Blood - Peripheral No growth in 4 days Anaerobic Blood Culture - Preliminary No growth in 4 days - Impressions ITS Impressions Chest X-Ray 11/29/17 20:26 CONCLUSION: Cardiomegaly. Mild basilar atelectasis. Previous sternotomy. Abdomen/Pelvis CT 11/29/17 20:27 CONCLUSION: 1. No acute findings within the abdomen and pelvis. Small hiatal hernia. Atrophic right kidney. 2. Mild 3.4 cm distal abdominal aortic aneurysm. 3. Extensive stranding of fat in the lateral abdominal wall bilaterally, probably anasarca although bruising could have a similar appearance. Discharge Plan - Discharge Disposition Patient Disposition: W/Home Health Service - Discharge Condition Condition: Stable - Discharge Order Discharge Orders: Discharge Order (Routine); Ordered 12/03/17 Ordered By: Alfonso Asif - Discharge Details Anticipated Discharge Date: 12/03/17 - Physicians Team Primary Care Provider: Vipul Eid Attending Provider: Michael Rich
== END 2017-12-03 17:06 | disposition home health service (06) ==
LOC: NEPE 19:43 → NEDA 23:57 → N05 11-30 02:03
PROVIDERS: ADMIT Hospitalist; ATTEND Hospitalist